=== PATIENT | male | born 1955 | race Hispanic/Latino ===

== ENCOUNTER 2017-10-29 07:10 | Day surgery (SDC) | payer BC, OTHER ==
--- NOTE | 2017-10-28 14:11 | RAD REPORT ---
EXAM DESCRIPTION: RAD - Chest Pa And Lat (2 Views) - 10/28/2017 1:58 pm CLINICAL HISTORY: Preop chest, pending cardiac catheterization, shortness of breath COMPARISON: June 2013 TECHNIQUE: PA and lateral views of the chest were obtained. FINDINGS: The lungs are normal volume. No peripheral mass, consolidation or acute failure finding. L cecy markings are slightly more pronounced in the left base. This is a stable pattern. Trachea is midl ine. Heart size is normal and central vasculature is within normal limits. No pleural effusion or pneumothorax seen. No acute bony finding noted. No aortic abnormality. IMPRESSION: No acute cardiopulmonary process. Above detailed chest findings are similar to comparis on.
[2017-10-28 14:24] LABS: Potassium 4.1 mmol/L (3.5-5.1)
[2017-10-28 14:33] LABS: Absolute Lymphocytes (CBC) 2.9 K/uL (0.7-4.9); Absolute Monocytes 0.6 K/uL (0.1-1.3); Absolute Neutrophil 4.7 K/uL (1.8-8.0); Eosinophils % 3.5 % (0-4.4); Lymphocytes % 33.7 % (15.3-44.8); MCH 28.4 pg (27.0-35.0); MCV 84.8 fL (80-100); MPV 10.2 fL (7.6-11.3); Monocytes % 6.9 % (3.3-12.3); RBC Red Blood Cell Count 4.83 M/uL (4.33-5.43)
[2017-10-28 14:36] LABS: Protime INR 0.98
--- OUTSIDE RECORDS SUMMARY | 2017-10-29 07:13 | XMS REPORT | Continuity of Care Document ---
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 Low back Active 07/08/19 Problem 07/03/2015 Data OPID pain<sup>2</sup> 15 migrated Juma from GE OPID [facility] [place] on 10/26/14. Lumbar Active 07/08/19 Problem 07/03/2015 Data OPID radiculopathy<sup 15 migrated [facility] >3</sup> from GE OP[facility] [place] on 10/26/14. Spinal stenosis Active 07/08/19 Problem 07/03/2015 Data OPID of lumbar 15 migrated [facility] region<sup>4</sup from GE OPID > [facility] [place] on 10/26/14. Unsteady Active 07/08/19 Problem 07/03/2015 Data OPID gait<sup>5</sup> 15 migrated Juma from GE OPID [facility] [place] on 10/26/14. LOW BACK PAIN Active 07/08/19 Condition 11/03/2014 [facility] 15 Neuro LUMBAR Active 07/08/19 Condition 11/03/2014 [facility] RADICULOPATHY 15 Neuro LUMBAR HNP Active 07/08/19 Condition 11/03/2014 [facility] 15 Neuro LUMBAR SPINAL Active 07/08/19 Condition 11/03/2014 [facility] STENOSIS 15 Neuro DEGENERATIVE DISC Active 07/08/19 Condition 11/03/2014 [facility] DISEASE, LUMBAR 15 Neuro SPINE UNSTEADY GAIT Active 07/08/19 Condition 11/03/2014 [facility] 15 Neuro Arthritis Resolved Problem 07/03/2015 GIANFRANCO Dennison, JULIANNAMary [place] DDD (<span Active Problem 07/03/2015 OPID ID="[id number]"> Juma Confirmed</span>) OP[facility] [place] DM (<span Active Problem 07/03/2015 OPID ID="[id number]"> [facility] Confirmed</span>) [facility] [place] HTN (<span Active Problem 07/03/2015 OPID ID="[id number]"> Juma Confirmed</span>) OPIMary [facility] Hypothyroidism Active Problem 07/03/2015 GIANFRANCO Dennison, GIANFRANCO [place] Obesity Active Problem 07/03/2015 GIANFRANCO Dennison, GIANFRANCO Grecom[place] Final: 07/29/2014 [facility] LUMB/LUMBOSAC Active [facility] DISC [facility] SPIN STEN,LUMBR Active [facility] LUMBAR DISC Active [facility] Medications Medication Details Route Status Patient Ordering Order Source Instructions Provider Date HYDROCODONE-ACETA 1 [facility] q h [facility]n [facility]325 [facility] 2015 Neuro MG TABS CYCLOBENZAPRINE 1 tab po every [facility] 08[facility]27[facility] HCL 10 MG TABS 8hrs 2015 Neuro CYCLOBENZAPRINE 1 tab po every Active 08/27/ [facility] HCL 10 MG TABS 8hrs 2015 Neuro Sodium Chloride 1,000 mL, 1,000 Inactive 07/24[facility] [place] 0.154 MEQ/ML ml/hr, Infuse 2015 Medical Injectable Over: 1 hr, [place] Solution Route: IV, ONCE, Priority: STAT, Dosing Weight 122.727 kg, Start date: 07/24/14 15:58:00, Duration: 1 doses or times, Stop date: 07/24/14 15:58:00 Cyclobenzaprine 10 mg=1 tab, Inactive 07/24[facility] [place] hydrochloride 10 PO, BID, PRN 2015 Medical MG Oral Tablet for spasm, # 30 Center [Flexeril] tab, 0 Refill(s) ondansetron 4 mg 4 mg=1 tab, PO, Inactive [place] oral tablet TID, # 30 tab, 2014 Medical 0 Refill(s) Center Acetaminophen 325 1-2 tab, PO, Inactive [facility] MG / Hydrocodone Q4-6H, PRN 2014 Medical Bitartrate 10 MG Pain, # 90 tab, Center Oral Tablet 0 Refill(s) [[place] 10/325] senna 15 mg oral 15 mg=1 tab, Inactive [facility] tablet PO, Daily, PRN 2014 Medical for Center constipation, # 30 tab, 0 Refill(s) Miralax 17 gm, 1 pkt, Inactive [facility] Route: PO, Drug 2014 Medical form: PWDR, [place] ONCE, Dosing Weight 122.727, kg, Start date: 07/23/14 18:00:00, Duration: 1 doses or times, Stop date: 07/23/14 18:00:00Notes: Dissolve in 8 oz of water or juice. (Same as: Miralax) Lisinopril 10 mg, 1 tab, No Longer [facility] Route: PO, Drug Active 2014 Medical form: TAB, Center Daily, Dosing Weight 122.727, kg, Start date: 07/23/14 9:00:00, Duration: 30 day, Stop date: 08/21/14 9:00:00Notes: (Same as: Prinivil, Zestril) Thyroxine 175 microgram, No Longer [facility] Route: PO, Drug Active 2014 Medical form: TAB, Center Daily, Dosing Weight 122.727, kg, Start date: 07/23/14 9:00:00, Duration: 30 day, Stop date: 08/21/14 9:00:00 pneumococcal 0.5 mL, Route: Inactive [facility] capsular IM, Drug Form: 2014 Medical polysaccharide INJ, Daily, Center type 1 vaccine / Start date: pneumococcal 07/23/14 capsular 9:00:00, polysaccharide Duration: 1 type 10A vaccine doses or times, / pneumococcal Stop date: capsular 07/23/14 polysaccharide 9:00:00Notes: type 11A vaccine (Same as: / pneumococcal Pneumovax 23) capsular Refrigerate polysaccharide type 12F vaccine / pneumococcal capsular polysacchar Levothroid 100 microgram, No Longer [facility] 1 tab, Route: Active 2014 Medical PO, Drug form: Center TAB, Q630AM, Start date: 07/23/14 6:30:00, Duration: 30 day, Stop date: 08/21/14 6:30:00Notes: Take 1 hour before or 2 hours after meal; Enteral feeds may interefere with the absorption of this medication. (Same as:Levothroid, Synthroid) Synthroid 75 microgram, 1 No Longer [facility] tab, Route: PO, Active 2014 Medical Drug form: TAB, [place] Q630AM, Start date: 07/23/14 6:30:00, Duration: 30 day, Stop date: 08/21/14 6:30:00Notes: Take 1 hour before or 2 hours after meal; Enteral feeds may interefere with the absorption of this medication. (Same as:Synthroid, Levothroid) sennosides, [place] 8.6 mg, 1 tab, No Longer [facility] Route: PO, Drug Active 2014 Medical Form: TAB, Center Dosing Weight 122.727, kg, Q12H, Start date: 07/22/14 21:00:00, Duration: 30 day, Stop date: 08/21/14 9:00:00Notes: (Same as: Senokot) Docusate 100 mg, 1 cap, No Longer [facility] Route: PO, Drug Active 2014 Medical form: CAP, Center Q12H, Dosing Weight 122.727, kg, Start date: 07/22/14 21:00:00, Duration: 30 day, Stop date: 08/21/14 9:00:00Notes: (Same as: Colace) (Do Not Crush) Famotidine 20 mg, 2 mL, No Longer [facility] Route: IVP, Active 2014 Medical Drug form: INJ, Center Q12H, Dosing Weight 122.727, kg, Start date: 07/22/14 21:00:00, Duration: 30 day, Stop date: 08/21/14 9:00:00Notes: (Same as: Pepcid) Can be dilute in 5-10cc NS IVP: Slow IV push over at least 2 minutes. ceFAZolin 1 gm, Route: No Longer [place] IV, Drug form: Active 2014 Medical PDR/INJ, Center [id number], Start date: 07/22/14 21:00:00, Duration: 24 hr, Stop date: 07/23/14 13:00:00Notes: (Same As: Joyce Alcantar) MEDICATION WASTE Product Size: 1000 mg Product Wasted: ___ mg Lipitor 10 mg, 1 tab, No Longer [place] Route: PO, Drug Active 2014 Medical form: TAB, Center Bedtime, Start date: 07/22/14 21:00:00, Duration: 30 day, Stop date: 08/20/14 21:00:00Notes: (Same As: Lipitor) Lovastatin 20 mg, Route: Inactive [place] PO, Drug form: 2014 Medical TAB, Bedtime, Center Dosing Weight 122.727, kg, Start date: 07/22/14 21:00:00, Duration: 30 day, Stop date: 08/20/14 21:00:00 Saline Flush 0.9% 10 ml, Route: No Longer [place] IVP, Drug Form: Active 2014 Medical INJ, Dosing Center Weight 122.727, kg, Q12H, Start date: 07/22/14 21:00:00, Duration: 30 day, Stop date: 08/21/14 9:00:00Notes: (Same as: BD Posiflush) Metformin 500 mg, 1 tab, No Longer [place] hydrochloride 500 Route: PO, Drug Active 2014 Medical MG Oral Tablet form: TAB, BID, Center Dosing Weight 122.727, kg, Start date: 07/22/14 17:00:00, Duration: 30 day, Stop date: 08/21/14 9:00:00Notes: (Same as: Glucophage) Take with meal bupivacaine 20 mL, Route: Inactive [facility] liposome InFILtration(lo 2014 Medical ray), Drug Center Form: INJ, ONCE, Start date: 07/22/14 13:29:00, Stop date: 07/22/14 13:29:00Notes: (Same as: Exparel) NOT FOR IV use Postoperative analgesia: Infiltration (local): Dose is based on surgical site and volume required to cover the area (in general, the maximum total dose is 266 mg). Bunionectomy: 7 mL into the tissues surrounding the osteotomy and 1 mL into the subcutaneous tissue of the surgical site (total dose=8 mL [106 mg]) Hemorrhoidectom y: 30 mL (20 mL vial diluted with 10 mL NS) divided and administered as 6 injections of 5 mL each (total dose=30 mL [266 mg]) Cefazolin 1 gm, Route: Inactive [facility] IVPB, ABXQ8H, 2014 Medical Dosing Weight Center 122.727, kg, For Morphine 30 mg, 30 mL, No Longer [place] Route: IV, Active 2014 Medical Initial Loading Center Dose: 2 mg, CHEMIST STEROIDS Dose: 1 mg, CHEMIST STEROIDS Lockout: 10 minutes, Continuous Basal Rate: 0 mg, 4 Hour Limit (In MG): 30, Drug Form: INJ, Continuous, Start date: 07/22/14 12:30:00, Duration: 30 day, Stop date: 08/21/14 12:2...Notes: Dose: Delay: Basal rate: 4hr limit: (Same as:Kimo) Valium 5 mg, 1 tab, No Longer [place] Route: PO, Drug Active 2014 Medical form: TAB, TID, Center Dosing Weight 122.727, kg, PRN Spasm, Start date: 07/22/14 12:05:00, Duration: 30 day, Stop date: 08/21/14 12:04:00Notes: (Same as: Valium) Naloxone 0.04 mg, 0.1 No Longer [facility] mL, Route: IVP, Active 2014 Medical Drug form: INJ, Center Q2MIN, Dosing Weight 122.727, kg, PRN Narcotic Reversal, Start date: 07/22/14 12:04:00, Duration: 30 day, Stop date: 08/21/14 12:03:00Notes: Same as Narcan Acetaminophen 325 1 tab, Route: No Longer [facility] MG / Hydrocodone PO, Drug Form: Active 2014 Medical Bitartrate 10 MG TAB, Dosing Center Oral Tablet Weight 122.727, kg, Q4H, PRN Pain Score 4-6, Start date: 07/22/14 12:02:00, Duration: 30 day, Stop date: 08/21/14 12:01:00Notes: Do not exceed 4gm/day of acetaminophen. (Same as: [place] 325/10) Ondansetron 4 mg, 2 mL, No Longer [place] Route: IVP, Active 2014 Medical Drug form: INJ, Center Q8H, Dosing Weight 122.727, kg, PRN Nausea & Vomiting, Start date: 07/22/14 12:02:00, Duration: 30 day, Stop date: 08/21/14 12:01:00Notes: (Same as: Rohit) MEDICATION WASTE Product Size: 4 mg Product Wasted: __0_ mg Sodium Chloride 1,000 mL, Rate: No Longer [place] 0.154 MEQ/ML 50 ml/hr, Active 2014 Medical Injectable Infuse over: 20 Center Solution hr, Route: IV, Dosing Weight 122.727 kg, Total Volume: 1,000, Start date: 07/22/14 12:02:00, Stop date: 08/21/14 12:01:00 Saline Flush 0.9% 10 ml, Route: No Longer [place] IVP, Drug Form: Active 2014 Medical INJ, Dosing Center Weight 122.727, kg, PRN, PRN Line Flush, Start date: 07/22/14 12:02:00, Duration: 30 day, Stop date: 08/21/14 12:01:00Notes: (Same as: BD Posiflush) Clonazepam PO, TID, 0 Active [place] Refill(s) 2014 Medical Center Diclofenac PO, 0 Refill(s) Active [facility] 2014 Medical Center meclizine 12.5 mg 12.5 mg=1 tab, Active [facility] oral tablet PO, TID, PRN 2014 Medical Dizziness, # 30 Center tab, 0 Refill(s) sildenafil 100 MG 100 mg=1 tab, Active [facility] Oral Tablet PO, Daily, PRN 2014 Medical [Viagra] for erectile Center dysfunction, 0 Refill(s) Phentermine 37.5 mg=1 cap, Active [place] Hydrochloride PO, Daily, 0 2014 Medical 37.5 MG Oral Refill(s) Center Capsule Trazodone 100 mg=1 tab, Active [place] Hydrochloride 100 PO, TID, # 270 2015 Medical MG Oral Tablet tab, 0 Center Refill(s) clonazePAM 0.5 mg 0.5 mg=1 tab, Active [place] oral tablet, PO, TID, 0 2014 Medical disintegrating Refill(s) Center levothyroxine 175 175 microgram=1 Active [place] mcg (0.175 mg) tab, PO, Daily, 2015 Medical oral tablet # 90 tab, 0 Center Refill(s) lovastatin 20 mg 20 mg=1 tab, Active [place] oral tablet PO, Bedtime, # 2015 Medical 90 tab, 0 Center Refill(s) diclofenac sodium 75 mg=1 tab, Active [place] 75 mg oral PO, Q12H, # 60 2015 Medical enteric coated, tab, 0 Center delayed-release Refill(s) tablet Metformin 500 mg=1 tab, Active [place] hydrochloride 500 PO, BID, # 30 2015 Medical MG Oral Tablet tab, 0 Center Refill(s) Plus Low 1 tab, PO, Active [facility] [place] oral tablet Daily, 0 2014 Medical Refill(s) Center lisinopril 10 mg 10 mg=1 tab, Active [place] oral tablet PO, Daily, # 90 2015 Medical tab, 0 Center Refill(s) LISINOPRIL 10 MG Active TABS 2014 Neuro PRAVASTATIN Active SODIUM 40 MG TABS 2015 Neuro BP MULTINATAL Active PLUS TABS 2015 Neuro SYNTHROID 75 MCG Active TABS 2015 Neuro GLIPIZIDE-METFORM Active IN HCL 5-500 MG 2015 Neuro TABS DICLOFENAC SODIUM Active 75 MG TBEC 2015 Neuro LOVASTATIN 20 MG Active TABS 2015 Neuro CLONAZEPAM 0.5 MG Active TABS 2015 Neuro TRAZODONE HCL 100 Active MG TABS 2015 Neuro PHENTERMINE HCL Active 37.5 MG TABS 2015 Neuro LEVOTHYROXINE Active 07/07/ [facility] SODIUM 175 MCG 2015 Neuro TABS LISINOPRIL 10 MG Active 07/07/ [facility] TABS 2015 Neuro SYNTHROID 75 MCG Active [facility] TABS 2015 Neuro DICLOFENAC SODIUM Active 07/07/ [facility] 75 MG TBEC 2015 Neuro TRAZODONE HCL 100 Active 07/07/ [facility] MG TABS 2015 Neuro PHENTERMINE HCL Active 07/07/ [facility] 37.5 MG TABS 2015 Neuro LEVOTHYROXINE Active 07/07/ [facility] SODIUM 175 MCG 2015 Neuro TABS LISINOPRIL 10 MG Active 07/07/ [facility] TABS 2015 Neuro TRAZODONE HCL 100 Active 07/07/ [facility] MG TABS 2015 Neuro PHENTERMINE HCL Active 07/07/ [facility] 37.5 MG TABS 2015 Neuro Allergies, Adverse Reactions, Alerts Substance Category Reaction Severity Reaction Status Date Comments Source type Reported NKDA Assertion Drug Active OP[facility] allergy [place] Immunizations Immunization Date Site Status Last Comments Source Given Updated pneumococcal Left completed [employer] OPID 23-valent vaccine 5 Deltoid [place], OP[facility] [place] Results Order Name Results Value Reference Date Interpretation Comments Source Range Spine Spine lumbar EXAM: MRI LUMBAR SPINE WITHOUT CONTRAST 06/29 - OP[facility] lumbar wo wo contrast /2015 - [place] contrast MRI MRI DATE: 06/30/2015 Read by: Jeanne Arizmendi MD Dictated Date/time: 06/30/15 14:53 Electronically Signed by: Jeanne Arizmendi MD 06/30/15 15:00 FINAL REPORT INDICATION: M51.26 Other intervertebral disc displacement, lumbar region COMPARISON: None TECHNIQUE: Multiplanar multisequence images of the lumbar spine were obtained without contrast material administration. DISCUSSION: The height and the structure of the lumbar vertebral bodies are well- maintained. No bone marrow signal abnormality. Decreased T2 signal in the intervertebral discs due to degenerative changes. Minimal a nterolisthesis of L4 on L5 and retrolisthesis of L3 on L4. Laminectomy changes at L3-L5. L1-L2: No canal or foraminal stenosis. L2-L3: Concentric narrowing of the thecal sac with crowding of the transiting nerve roots. Encroachment of the left neural foramen by posterior endplate spondylosis and annular bulge. L3-L4: No canal stenosis. Left facet arthropathy. Encroachment of the left neural foramen by posterior endplate spondylosis and annular bulge. L4-L5: No canal stenosis. Advanced bilateral facet arthropathy. Encroachment of both neural foramen by degenerative changes, right greater than left with effacement of the perineural fat. L5-S1: No canal stenosis. Encroachment of the left neural foramen by degenerative changes. IMPRESSION: Mild to moderate spinal canal stenosis at L2-L3 with crowding of the transiting nerve roots. Advanced facet arthropathy most prominent on the left side at L4-L5. Encroachment of some neural foramen by degenerative changes, worse on the left side at L3-L4, bilaterally at L4-L5 and left side at L5-S1. Foot series Foot series EXAM: RIGHT FOOT 3 VIEWS 08/27 [facility] OPID DX DX /2014 [place] DATE: Aug 27, 2014 10:58:00 AM Read by: Luis Pérez MD Dictated Date/time: 08/27/14 12:11 Electronically Signed by: Luis Pérez MD 08/27/14 15:33 FINAL REPORT INDICATION: 719.47 Pain in Joint Involving Ankle and Foot COMPARISON: None available TECHNIQUE: AP, lateral and oblique radiographs of the right foot FINDINGS: No fracture, dislocation or other acute bony abnormality is identified. There is mild joint space narrowing and osteophyte formation of the first MTP joint. There is a nonspecific 7 mm cyst i n the fifth metatarsal neck. Small calcaneal enthesophytes are present. No soft tissue abnormality is identified. IMPRESSION: 1. No acute abnormality identified. 2. 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 3. Nonspecific 7 mm cyst in the fifth metatarsal neck. CHEM PANEL Globulin 3.7 g/dL 2.0 - 4.0 07/26 [facility]2014 [facility] CHEM PANEL A/G Ratio 0.8 0.7 - 1.6 07/[address] CHEM PANEL AGAP 13.9 meq/L 10.0 - 07/26 [facility] 20.0 [facility] CHEM PANEL B/C Ratio 11 6 - 07/[address] CHEM PANEL eGFR 94 07/26 1Result Comment: The eGFR is calculated using the CKD-EPI formula. In most young, healthy individuals the eGFR will be >90 mL/ min/1.73m2. The eGFR declines with age. An eGFR of 60-89 may be normal in mL/min/1.7 some populations, particularly the elderly, for whom the CKD-EPI formula has not been extensively validated. Use of the eGFR is not recommended in the following populations: [address] Individuals with unstable creatinine concentrations, including patients and those with serious co-morbid conditions. Patients with extremes in muscle mass or diet. The data above are obtained from the National Kidney Disease Education Program (NKDEP) which additionally recommends that when the eGFR is used in patients with extremes of body mass index for purposes of drug dosing, the eGFR should be multiplied by the estimated BMI. CHEM PANEL Glucose Lvl 98 mg/dL 70 - 99 07/26 4Interpretive Data: Adult reference range values reflect the clinical guidelines of the [place] [employer]. [facility] CHEM PANEL BUN 10 mg/dL 7 - 22 07/26 [facility] CHEM PANEL ALT 63 unit/L 0 - 65 07/26 [facility] CHEM PANEL AST 31 unit/L 0 - 37 07/26 [facility] CHEM PANEL Albumin Lvl 2.9 g/dL 3.5 - 5.0 07/26 [facility] CHEM PANEL Bili Total 0.4 mg/dL 0.2 - 1.3 07/26 [facility] CHEM PANEL Alk Phos 100 unit/L 39 - 136 07/26 [facility] CHEM PANEL Potassium 3.9 meq/L 3.5 - 5.1 07/26 [facility] CHEM PANEL Sodium Lvl 140 meq/L 135 - 145 07/26 [facility] CHEM PANEL CO2 22 meq/L 24 - 32 07/26 2014 [facility] CHEM PANEL Chloride Lvl 108 meq/L 95 - 109 07/26 [facility] CHEM PANEL Creatinine 0.9 mg/dL 0.5 - 1.4 07/26 [facility] CHEM PANEL Calcium Lvl 9.0 mg/dL 8.5 - 10.5 07/26 2014 [facility] CHEM PANEL Total 6.6 g/dL 6.4 - 8.4 07/26 [facility] HEMATOLOGY Platelet 176 K/CMM 133 - 450 07/26 [facility] HEMATOLOGY Hgb 12.5 g/dL 14.0 - 07/26 18.0 [facility] HEMATOLOGY Hct 38.8 % 42.0 - 07/26 54.0 [facility] HEMATOLOGY RBC 4.41 M/CMM 4.70 - 07/26 6.10 [facility] HEMATOLOGY MCV 88.1 fL 80.0 - 07/26 94.0 [facility] HEMATOLOGY MCH 28.3 pg 27.0 - 07/26 [place] 31.0 [facility] HEMATOLOGY MPV 10.3 fL 7.4 - 10.4 07/26 [facility] HEMATOLOGY RDW 13.7 % 11.5 - 07/26 14.5 [facility] HEMATOLOGY MCHC 32.1 g/dL 32.0 - 07/26 36.0 [facility] HEMATOLOGY WBC 11.4 K/CMM 3.7 - 10.4 07/26 [facility] HEMATOLOGY Segs-Bands # 7.9 K/CMM 1.5 - 8.1 07/26 [facility] HEMATOLOGY Lymphocytes 2.2 K/CMM 1.0 - 5.5 07/26 # [facility] HEMATOLOGY Monocytes 9.9 % 2.0 - 12.0 07/26 [facility] HEMATOLOGY Basophils 0.2 % 0.0 - 1.0 07/26 [facility] HEMATOLOGY Eosinophils 1.2 % 0.0 - 4.0 07/26 [facility] HEMATOLOGY Eosinophils 0.1 K/CMM 0.0 - 0.5 07/26 [facility] HEMATOLOGY Monocytes # 1.1 K/CMM 0.0 - 0.8 07/26 [facility] HEMATOLOGY Lymphocytes 19.5 % 20.0 - 07/26 40.0 [facility] HEMATOLOGY Segs 69.2 % 45.0 - 07/26 75.0 [facility] CHEM PANEL eGFR 94 07/25 2Result Comment: The eGFR is calculated using the CKD-EPI formula. In most young, healthy individuals the eGFR will be >90 mL/ min/1.73m2. The eGFR declines with age. An eGFR of 60-89 may be normal in [facility] mL/min/1.7 some populations, particularly the elderly, for whom the CKD-EPI formula has not been extensively validated. Use of the eGFR is not recommended in the following populations: [address] Individuals with unstable creatinine concentrations, including patients and those with serious co-morbid conditions. Patients with extremes in muscle mass or diet. The data above are obtained from the National Kidney Disease Education Program (NKDEP) which additionally recommends that when the eGFR is used in patients with extremes of body mass index for purposes of drug dosing, the eGFR should be multiplied by the estimated BMI. CHEM PANEL Alk Phos 84 unit/L 39 - 136 07/25 [facility] CHEM PANEL Bili Total 0.5 mg/dL 0.2 - 1.3 07/25 [facility] CHEM PANEL ALT 45 unit/L 0 - 65 07/25 [facility] CHEM PANEL AST 27 unit/L 0 - 37 07/25 [facility] CHEM PANEL Chloride Lvl 107 meq/L 95 - 109 07/25 [facility] CHEM PANEL BUN 15 mg/dL 7 - 22 07/25 [facility] CHEM PANEL Glucose Lvl 113 mg/dL 70 - 99 07/25 5Interpretive Data: Adult reference range values reflect the clinical guidelines of the [place] [employer]. [facility] CHEM PANEL Albumin Lvl 3.1 g/dL 3.5 - 5.0 07/25 [facility] CHEM PANEL CO2 20 meq/L 24 - 32 07/25 [facility] CHEM PANEL Calcium Lvl 8.8 mg/dL 8.5 - 10.5 07/25 [facility] CHEM PANEL Total 7.2 g/dL 6.4 - 8.4 07/25 [facility] CHEM PANEL Creatinine 0.9 mg/dL 0.5 - 1.4 07/25 [facility] CHEM PANEL Sodium Lvl 138 meq/L 135 - 145 07/25 [facility] CHEM PANEL Potassium 4.1 meq/L 3.5 - 5.1 07/25 [facility] CHEM PANEL Globulin 4.1 g/dL 2.0 - 4.0 07/25 [facility] CHEM PANEL A/G Ratio 0.8 0.7 - 1.6 07/25 [facility] CHEM PANEL AGAP 15.1 meq/L 10.0 - 07/25 [place] 20.0 [facility] CHEM PANEL B/C Ratio 17 6 - 25 07/25 [facility] HEMATOLOGY Lymphocytes 2.3 K/CMM 1.0 - 5.5 07/25 # /2014 [facility] HEMATOLOGY Eosinophils 0.1 K/CMM 0.0 - 0.5 07/25 # /2014 [facility] HEMATOLOGY Basophils 0.3 % 0.0 - 1.0 07/25 [facility] HEMATOLOGY Monocytes # 1.2 K/CMM 0.0 - 0.8 07/25 [facility] HEMATOLOGY Segs-Bands # 10.3 K/CMM 1.5 - 8.1 07/25 [facility] HEMATOLOGY Eosinophils 0.8 % 0.0 - 4.0 07/25 [facility] HEMATOLOGY Monocytes 8.9 % 2.0 - 12.0 07/25 [facility] HEMATOLOGY Segs 73.8 % 45.0 - 07/25 [place] 75.0 [facility] HEMATOLOGY Lymphocytes 16.2 % 20.0 - 07/25 [place] 40.0 [facility] HEMATOLOGY Hct 39.7 % 42.0 - 07/25 54.0 [facility] HEMATOLOGY MCV 87.4 fL 80.0 - 07/25 [place] 94.0 [facility] HEMATOLOGY MCHC 32.5 g/dL 32.0 - 07/25 36.0 [facility] HEMATOLOGY MCH 28.5 pg 27.0 - 07/25 [place] 31.0 [facility] HEMATOLOGY RDW 13.5 % 11.5 - 07/25 [place] 14.5 [facility] HEMATOLOGY Platelet 163 K/CMM 133 - 450 07/25 [facility] HEMATOLOGY MPV 10.2 fL 7.4 - 10.4 07/25 [facility] HEMATOLOGY Hgb 12.9 g/dL 14.0 - 07/25 [place] 18.0 [facility] HEMATOLOGY RBC 4.54 M/CMM 4.70 - 07/25 [place] 6.10 [facility] HEMATOLOGY WBC 14.0 K/CMM 3.7 - 10.4 07/25 [facility] HEMATOLOGY RBC 5.17 M/CMM 4.70 - 07/24 [place] 6.10 [facility] HEMATOLOGY Hgb 14.8 g/dL 14.0 - 07/24 18.0 [facility] HEMATOLOGY Platelet 212 K/CMM 133 - 450 07/24 [facility] HEMATOLOGY WBC 20.3 K/CMM 3.7 - 10.4 07/24 [facility] HEMATOLOGY MPV 10.2 fL 7.4 - 10.4 07/24 [facility] HEMATOLOGY MCV 87.7 fL 80.0 - 07/24 94.0 [facility] HEMATOLOGY Hct 45.4 % 42.0 - 07/24 54.0 [facility] HEMATOLOGY MCHC 32.5 g/dL 32.0 - 07/24 36.0 [facility] HEMATOLOGY MCH 28.5 pg 27.0 - 07/24 31.0 [facility] HEMATOLOGY RDW 13.8 % 11.5 - 07/24 14.5 [facility] HEMATOLOGY Monocytes 8.6 % 2.0 - 12.0 07/24 [facility] HEMATOLOGY Eosinophils 0.2 % 0.0 - 4.0 07/24 [facility] HEMATOLOGY Basophils 0.2 % 0.0 - 1.0 07/24 [facility] HEMATOLOGY Segs-Bands # 15.8 K/CMM 1.5 - 8.1 07/24 [facility] HEMATOLOGY Lymphocytes 2.7 K/CMM 1.0 - 5.5 07/24 # /2014 [facility] HEMATOLOGY Monocytes # 1.8 K/CMM 0.0 - 0.8 07/24 [facility] HEMATOLOGY Segs 77.9 % 45.0 - 07/24 75.0 [facility] HEMATOLOGY Lymphocytes 13.1 % 20.0 - 07/24 [place] 40.0 [facility] BLOOD BANK ABO/Rh A POS 07/22 [facility] RESULTS [facility] BLOOD BANK Antibody Negative 07/22 [facility] RESULTS Scrn [facility] (07/22/14 10:05 AM) Center CHEM PANEL eGFR 83 07/20 3Result Comment: The eGFR is calculated using the CKD-EPI formula. In most young, healthy individuals the eGFR will be >90 mL/ min/1.73m2. The eGFR declines with age. An eGFR of 60-89 may be normal in mL/min/1. some populations, particularly the elderly, for whom the CKD-EPI formula has not been extensively validated. Use of the eGFR is not recommended in the following populations: [address] Individuals with unstable creatinine concentrations, including patients and those with serious co-morbid conditions. Patients with extremes in muscle mass or diet. The data above are obtained from the National Kidney Disease Education Program (NKDEP) which additionally recommends that when the eGFR is used in patients with extremes of body mass index for purposes of drug dosing, the eGFR should be multiplied by the estimated BMI. CHEM PANEL Alk Phos 91 unit/L 39 - 136 07/20 [facility] CHEM PANEL Bili Total 0.4 mg/dL 0.2 - 1.3 07/20 [facility] CHEM PANEL Albumin Lvl 4.0 g/dL 3.5 - 5.0 07/20 [facility] CHEM PANEL ALT 58 unit/L 0 - 65 07/20 [facility] CHEM PANEL AST 17 unit/L 0 - 37 07/20 [facility] CHEM PANEL CO2 29 meq/L 24 - 32 07/20 [facility] CHEM PANEL Calcium Lvl 9.2 mg/dL 8.5 - 10.5 07/20 [facility] CHEM PANEL Total 7.3 g/dL 6.4 - 8.4 07/20 [facility] CHEM PANEL Sodium Lvl 143 meq/L 135 - 145 07/20 [facility] CHEM PANEL BUN 19 mg/dL 7 - 22 07/20 [facility] CHEM PANEL Creatinine 1.0 mg/dL 0.5 - 1.4 07/20 [facility] CHEM PANEL Potassium 4.3 meq/L 3.5 - 5.1 07/20 [facility] CHEM PANEL Chloride Lvl 106 meq/L 95 - 109 07/20 [facility]2014 [facility] CHEM PANEL Glucose Lvl 87 mg/dL 70 - 99 07/20 6Interpretive Data: Adult reference range values reflect the clinical guidelines of the [place] [employer]. [facility] CHEM PANEL A/G Ratio 1.2 0.7 - 1.6 07/20 [facility] CHEM PANEL AGAP 12.3 meq/L 10.0 - 07/20 [facility] 20.0 /2014 [facility] CHEM PANEL B/C Ratio 19 6 - 25 07/20 [facility] CHEM PANEL Globulin 3.3 g/dL 2.0 - 4.0 07/20 [facility] HEMATOLOGY Eosinophils 0.1 K/CMM 0.0 - 0.5 07/20 [facility] # /2014 [facility] HEMATOLOGY INR 1.00 0.85 - 07/20 7Interpretive Data: RECOMMENDED RANGES FOR PROTIME INR: [facility] 1.17 2.0-3.0 for most medical and surgical thromboembolic states. [facility] 2.5-3.5 for artificial heart valves and recurrent embolism. Center INR SHOULD BE USED ONLY FOR PATIENTS ON STABLE ANTICOAGULANT THERAPY. HEMATOLOGY PT 13.2 s 12.0 - 07/20 [facility] 14.7 /2014 [facility] HEMATOLOGY PTT 33.7 s 22.9 - 07/20 8Interpretive [facility] 35.8 Data: Heparin [facility] Range: 57 - 92 Seconds URINE AND UA Mucus Few /LPF None Seen 07/20 [place] STOOL /LPF /2014 [facility] URINE AND UA WBC null 0 - 5 07/20 [facility] URINE AND UA Nitrite Negative Negative 07/20 [facility] (07/20/14 12:03 PM) [place] URINE AND UA 0.2 EU/dL 0.1 - 1.0 07/20 [facility] Urobilinogen /2014 [facility] URINE AND UA pH 5.5 5.0 - 8.0 07/20 [facility] URINE AND UA Leuk Est Negative Negative 07/20 [facility] (07/20/14 12:03 PM) [place] URINE AND UA Glucose Negative Negative 07/20 [facility] mg/dL mg/dL /2014 [facility] URINE AND UA Protein Negative Negative 07/20 [facility] mg/dL mg/dL /2014 [facility] URINE AND UA Bili Negative Negative 07/20 [facility] *NA* [place] (07/20/14 12:03 PM) URINE AND UA Blood Negative Negative 07/20 [facility] (07/20/14 12:03 PM) [place] URINE AND UA Ketones Negative Negative 07/20 [facility] STOOL mg/dL mg/dL /2014 [facility] URINE AND UA Color Yellow Yellow 07/20 [facility] Medical *NA* [place] (07/20/14 12:03 PM) URINE AND UA Turbidity Clear Clear 07/20 [facility] /2014 [facility] (07/20/14 12:03 PM) [place] URINE AND UA Spec Grav 1.020 <=1.030 07/20 [facility] /[address] [place] [address] URINE AND UA Sq Epi None Seen Few 07/20 [facility] /2014 [facility] (07/20/14 12:03 PM) [place] Vital Signs Vital Sign Value Date Comments Source Weight 250.0 11/03/2014 [facility] Height 73 11/03/2014 [facility] Temperature Oral (F) 98.0 F 11/03/2014 [facility] Heart Rate 90 11/03/2014 [facility] Systolic (mm Hg) 148 11/03/2014 [facility] Diastolic (mm Hg) 86 11/03/2014 [facility] Weight 273 08/27/2014 [facility] Height 73 08/27/2014 [facility] Temperature Oral (F) 97.3 F 08/27/2014 [facility] Heart Rate 97 08/27/2014 [facility] Systolic (mm Hg) 163 08/27/2014 [facility] Diastolic (mm Hg) 94 08/27/2014 [facility] Weight 284 08/06/2014 [facility] Temperature Oral (F) 98.3 F 08/06/2014 [facility] Respitory Rate 18 08/06/2014 [facility] Heart Rate 104 08/06/2014 [facility] Height 72 08/06/2014 [facility] Systolic (mm Hg) 139 08/06/2014 [facility] Diastolic (mm Hg) 82 08/06/2014 [facility] Systolic (mm Hg) 123 07/26/2014 [facility] Center Diastolic (mm Hg) 77 07/26/2014 [facility] Heart Rate 86 07/26/2014 [facility] Respitory Rate 18 07/26/2014 [facility] Temperature Oral (F) 98.4 F 07/26/2014 [facility] Heart Rate 79 07/26/2014 [facility] Temperature Oral (F) 98.4 F 07/26/2014 [facility] Respitory Rate 18 07/26/2014 [facility] Systolic (mm Hg) 132 07/26/2014 [facility] Diastolic (mm Hg) 74 07/26/2014 [facility] Temperature Oral (F) 97.6 F 07/26/2014 [facility] Heart Rate 81 07/26/2014 [facility] Systolic (mm Hg) 137 07/26/2014 [facility] Diastolic (mm Hg) 80 07/26/2014 [facility] Respitory Rate 20 07/26/2014 [facility] Weight 122.727 07/22/2014 [facility] BMI Calculated 35.7 07/22/2014 [facility] Height 185.42 cm 07/22/2014 [facility] Weight 270.0 07/07/2014 [facility] Height 72 07/07/2014 [facility] Temperature Oral (F) 98.6 F 07/07/2014 [facility] Heart Rate 100 07/07/2014 [facility] Systolic (mm Hg) 161 07/07/2014 [facility] Diastolic (mm Hg) 93 07/07/2014 [facility] Respitory Rate 18 07/07/2014 [facility] Encounters Location Location Encounter Encounter Reason Attending ADM DC Status Source Details Type Number For Provider Date Date Visit [facility] [id number] Mark Anthony 07/07 07/07 [facility] 3790 Dick CASTELAN [facility] [id number] Mark Anthony 07/22 07/26 [facility] [place] [facility] [id number] Mark Anthony 08/06 08/06 [facility] 9830 Dick CASTELAN /2014 [facility] [id number] Mark Anthony 08/27 08/27 [facility] 2120 Dick CASTELAN /2014 [facility] Outpt Diag [id number] Mark Anthony 08/27 08/28 [facility] [place] [facility] [id number] Mark Anthony 11/03 11/03 [facility] 1260 Dick CASTELAN /2014 [facility] Out[facility] [id number] JAMIE 06/[address] [facility] /2015 [facility] Outpt Diag [id number] Jamie 06/08 06/09 [facility] /2015 [facility] Outpt Diag [id number] Jamie 06/29 06/30 [facility] /2015 [facility] Outpatient [id number] JAMIE 07/[address] [facility] [place] [facility] [id number] MARCIA 05/09 [facility] Procedures Procedure Code Date Perfomer Comments Source Colonoscopy [id number] [facility] Oral operation [id number] [facility] Colonoscopy [id number] [facility] Oral operation [id number] [facility] Colonoscopy [id number] [facility] Oral operation [id number] [facility]
--- OUTSIDE RECORDS SUMMARY | 2017-10-29 07:14 | XMS REPORT | Continuity of Care Document ---
:1955 Author Organization [facility] Care Team Providers Name Role Phone Mark Anthony Jennings MD Unavailable Insurance Providers Payer name Policy type / Policy ID Covered republican ID Policy Macias Coverage type [facility] Encounters Encounter Performer Location Date Office Visit Mark Anthony Jennings MD [facility] Aug 06, 2014 Problems Problem Effective Dates Problem Status LOW BACK PAIN July 07, 2014 Active LUMBAR RADICULOPATHY July 07, 2014 Active LUMBAR HNP July 07, 2014 Active LUMBAR SPINAL STENOSIS July 07, 2014 Active DEGENERATIVE DISC DISEASE, 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, 2014 Active UNSTEADY GAIT July 07, 2014 Active Procedures Date Description Comments Jun 17, 2014 smoking status never smoker July 07, 2014 smoking status Never smoker Aug 06, 2014 smoking status Never smoker Medications Medication Instructions Start Date Status LISINOPRIL 10 MG TABS July 07, 2014 Active PRAVASTATIN SODIUM 40 MG TABS July 07, 2014 Active BP MULTINATAL PLUS TABS July 07, 2014 Active SYNTHROID 75 MCG TABS July 07, 2014 Active GLIPIZIDE-METFORMIN HCL 5-500 MG TABS July 07, 2014 Active DICLOFENAC SODIUM 75 MG TBEC July 07, 2014 Active LOVASTATIN 20 MG TABS July 07, 2014 Active CLONAZEPAM 0.5 MG TABS July 07, 2014 Active TRAZODONE HCL 100 MG TABS July 07, 2014 Active PHENTERMINE HCL 37.5 MG TABS July 07, 2014 Active LEVOTHYROXINE SODIUM 175 MCG TABS July 07, 2014 Active Vital Signs Date Description Test Result July 07, 2014 weight E&M - 3141-9 WEIGHT 270.0 lb July 07, 2014 height E&M - 8302-2 HEIGHT 72 in July 07, 2014 temperature E&M TEMPERATURE 98.6 deg f July 07, 2014 pulse rate E&M - 8867-4 PULSE RATE 100 /min July 07, 2014 blood pressure, systolic - 8480-6 BP SYSTOLIC 161 mm Hg July 07, 2014 blood pressure, diastolic - 8462-4 BP DIASTOLIC 93 mm Hg July 07, 2014 respiratory rate E&M - 9279-1 RESP RATE 18 /min Aug 06, 2014 weight E&M - 3141-9 WEIGHT 284 lb Aug 06, 2014 temperature E&M TEMPERATURE 98.3 deg f Aug 06, 2014 respiratory rate E&M - 9279-1 RESP RATE 18 /min Aug 06, 2014 pulse rate E&M - 8867-4 PULSE RATE 104 /min Aug 06, 2014 height E&M - 8302-2 HEIGHT 72 in Aug 06, 2014 blood pressure, systolic - 8480-6 BP SYSTOLIC 139 mm Hg Aug 06, 2014 blood pressure, diastolic - 8462-4 BP DIASTOLIC 82 mm Hg
--- OUTSIDE RECORDS SUMMARY | 2017-10-29 07:14 | XMS REPORT | Continuity of Care Document ---
:1955 Author Organization [facility] Care Team Providers Name Role Phone Mark Anthony Jennings MD Unavailable Insurance Providers Payer name Policy type / Policy ID Covered republican ID Policy Macias Coverage type [facility] Encounters Encounter Performer Location Date Office Visit Mark Anthony Jennings MD [facility] Aug 27, 2014 Problems Problem Effective Dates Problem Status LOW BACK PAIN July 07, 2014 Active LUMBAR RADICULOPATHY July 07, 2014 Active LUMBAR HNP July 07, 2014 Active LUMBAR SPINAL STENOSIS July 07, 2014 Active DEGENERATIVE DISC DISEASE, 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, 2014 Active UNSTEADY GAIT July 07, 2014 Active PAIN IN JOINT INVOLVING ANKLE AND FOOT Aug 27, 2014 Active Procedures Date Description Comments Jun 17, 2014 smoking status never smoker July 07, 2014 smoking status Never smoker Aug 06, 2014 smoking status Never smoker Aug 27, 2014 smoking status Never smoker Medications Medication [...] 175 MCG TABS July 07, 2014 Active CYCLOBENZAPRINE HCL 10 MG TABS 1 tab po every 8hrs Aug 27, 2014 Active Vital Signs Date Description Test [...] - 8462-4 BP DIASTOLIC 82 mm Hg Aug 27, 2014 weight E&M - 3141-9 WEIGHT 273 lb Aug 27, 2014 height E&M - 8302-2 HEIGHT 73 in Aug 27, 2014 temperature E&M TEMPERATURE 97.3 deg f Aug 27, 2014 pulse rate E&M - 8867-4 PULSE RATE 97 /min Aug 27, 2014 blood pressure, systolic - 8480-6 BP SYSTOLIC 163 mm Hg Aug 27, 2014 blood pressure, diastolic - 8462-4 BP DIASTOLIC 94 mm Hg
--- OUTSIDE RECORDS SUMMARY | 2017-10-29 07:14 | XMS REPORT | Summary of Care ---
:1955 Author Organization [facility] [place] Address [address] [place] [phone]- Encounter HQ Heatherntr_shirley(FIN) [id number] Date(s): 06/09/15 - 06/09/15 [facility] [place] [address] [place] [address]- [phone] Discharge Disposition: Home Attending Physician: Jamie Rushing MD Vital Signs No data available for this section Problem List Condition Effective Dates Status Health Status Informant Arthritis(Confirmed) Resolved DDD (degenerative disc Active disease)(Confirmed) Degeneration of lumbar 07/07/14 Active intervertebral disc1 DM (diabetes mellitus)(Confirmed) Active HTN (hypertension)(Confirmed) Active Hypothyroidism(Confirmed) Active Low back pain2 07/07/14 Active Lumbar radiculopathy3 07/07/14 Active Obesity(Confirmed) Active Spinal stenosis of lumbar region4 07/07/14 Active Unsteady gait5 07/07/14 Active 1Data migrated from [employer] on 10/26/14.2Data migrated from [employer] on 10/26/14.3Data migrated from [employer] on 10/26/14.4Data migrated from [employer] on 10/26/14.5Data migrated from [employer] on 10/26/14. Allergies, Adverse Reactions, Alerts Substance Reaction Severity Status NKDA Active Medications No data available for this section Results No data available for this section Immunizations Vaccine Date Refusal Reason pneumococcal 23-valent vaccine 07/24/14 Procedures Procedure Date Related Diagnosis Body Site Colonoscopy Oral operation Social History Social History Type Response Smoking Status Never smoker; Type: Cigarettes; Exposure to Tobacco Smoke None; Cigarette Smoking Last 365 Days No; Reg Smoking Cessation Counseling No Assessment and Plan No data available for this section
--- OUTSIDE RECORDS SUMMARY | 2017-10-29 07:14 | XMS REPORT | Continuity of Care Document ---
:1955 Author Organization [facility] Care Team Providers Name Role Phone Dick CASTELAN, Mark Anthony Chavis Unavailable Insurance Providers Payer name Policy type / Policy ID Covered libertarian ID Policy Macias Coverage type [facility] Encounters Encounter Performer Location Date Office Visit Mark Anthony Jennings MD [facility] [place] 07, 2014 Problems Problem Effective Dates Problem Status [...] July 07, 2014 smoking status Never smoker Medications Medication [...]
--- OUTSIDE RECORDS SUMMARY | 2017-10-29 07:14 | XMS REPORT | Summary of Care ---
:[address] [facility] Outpatient Imaging - [facility] Address [address] [place] [address]- Encounter HQ Encntr_alibriseyda(FIN) [id number] Date(s): 06/30/15 - 06/30/[address] [facility] Outpatient Imaging - [address] [place] [address]- Discharge Disposition: Home Attending Physician: Jamie Rushing [...]
--- OUTSIDE RECORDS SUMMARY | 2017-10-29 07:14 | XMS REPORT | Summary of Care ---
:1955 Author Encounter HQ Lars(JALEN) [id number] Date(s): 07/22/14 - 07/26/[address] Professional Services provided by [facility] [place] [address]- Final: Discharge Disposition: Home Physician Attending: Mark Anthony Jennings MD Physician Admitting: Mark Anthony Jennings MD Physician_Referring: Mark Anthony Jennings MD Vital Signs Most recent to oldest 1 2 3 [Reference Range]: Height 185.42 cm (07/22/14 9:50 AM) Temperature Oral [96.4-99.1 98.4 DegF 98.4 DegF 97.6 DegF DegF] (07/26/14 11:21 AM) (07/26/14 7:14 AM) (07/26/14 5:12 AM) Blood Pressure [90-140/60-90 123/77 mmHg 132/74 mmHg 137/80 mmHg mmHg] (07/26/14 11:21 AM) (07/26/14 5:12 AM) (07/26/14 12:18 AM) Respiratory Rate [14-20 18 BRMIN 18 BRMIN 20 BRMIN BRMIN] (07/26/14 11:21 AM) (07/26/14 7:14 AM) (07/25/14 8:28 PM) Peripheral Pulse Rate [60-100 86 bpm 79 bpm 81 bpm bpm] (07/26/14 11:21 AM) (07/26/14 7:14 AM) (07/26/14 5:12 AM) Weight 122.727 kg (07/22/14 9:50 AM) Body Mass Index 35.7 m2 (07/22/14 9:50 AM) Problem List Condition Effective Dates Status Health Status Informant Arthritis(Confirmed) Resolved DDD (degenerative disc Active disease)(Confirmed) DM (diabetes mellitus)(Confirmed) Active HTN (hypertension)(Confirmed) Active Hypothyroidism(Confirmed) Active Obesity(Confirmed) Active Allergies, Adverse Reactions, Alerts Substance Reaction Severity Status NKDA Active Medications acetaminophen-hydrocodone 325 mg-10 mg oral tablet 1 tab, Route: PO, Drug Form: TAB, Dosing Weight 122.727, kg, Q4H, PRN Pain Score 4-6, Start date: 07/22/14 12:02:00, Duration: 30 day, Stop date: 08/21/14 12:01:00 Notes: Do not exceed 4gm/day of acetaminophen. (Same as: [place] 325/10) Start Date: 07/22/14 Stop Date: 07/26/14 Status: Discontinuedbupivacaine liposome 20 mL, Route: InFILtration(local), Drug Form: INJ, ONCE, Start date: 07/22/14 13 :29:00, Stop date: 07/22/14 13:29:00 Notes: (Same as: Анна) NOT FOR IV use Postoperative analgesia: Infiltration (local): Dose is based on surgical site and volume required to cover the area (in general, the maximum total dose is 266 mg).Bunionectomy: 7 mL into the tissues surrounding the osteotomy and 1 mL into the subcutaneous tissue of the surgical site (total dose=8 mL [106 mg])Hemorrhoidectomy: 30 mL ( 20 mL vial diluted with 10 mL NS) divided and administered as 6 injections of 5 mL each (total dose=30 mL [266 mg]) Start Date: 07/22/14 Stop Date: 07/22/14 Status: CompletedceFAZolin 1 gm, Route: IVPB, ABXQ8H, Dosing Weight 122.727, kg, For < 70 kg, Start date : 07/22/14 13:00:00,Duration: 30 day, Stop date: 08/21/14 5:00:00 Start Date: 07/22/14 Stop Date: 07/22/14 Status: DiscontinuedceFAZolin 1 gm, Route: IV, Drug form: PDR/INJ, ABXQ8H, Start date: 07/22/14 21:00:00, Duration: 24 hr, Stop date: 07/23/14 13:00:00 Notes: (Same As: Joyce Alcantar) MEDICATION WASTE Product Size: 1000 mgProduct Wasted: ___ mg Start Date: 07/22/14 Stop Date: 07/23/14 Status: CompletedclonazePAM PO, TID, 0 Refill(s) Start Date: 07/20/14 Status: OrderedclonazePAM 0.5 mg oral tablet, disintegrating 0.5 mg=1 tab, PO, TID, 0 Refill(s) Start Date: 07/20/14 Status: Ordereddiclofenac PO, 0 Refill(s) Start Date: 07/20/14 Status: Ordereddiclofenac sodium 75 mg oral enteric coated, delayed-release tablet 75 mg=1 tab, PO, Q12H, # 60 tab, 0 Refill(s) Start Date: 07/20/14 Status: Ordereddocusate 100 mg, 1 cap, Route: PO, Drug form: CAP, Q12H, Dosing Weight 122.727, kg, Start date: 07/22/14 21:00:00, Duration: 30 day, Stop date: 08/21/14 9:00:00 Notes: (Same as: Colace) (Do Not Crush) Start Date: 07/22/14 Stop Date: 07/26/14 Status: Discontinuedfamotidine 20 mg, 2 mL, Route: IVP, Drug form: INJ, Q12H, Dosing Weight 122.727, kg, Start date: 07/22/14 21:00:00, Duration: 30 day, Stop date: 08/21/14 9:00:00 Notes: (Same as: Pepcid)Can be dilute in 5-10cc NS IVP: Slow IV push over at least 2 minutes. Start Date: 07/22/14 Stop Date: 07/26/14 Status: DiscontinuedFlexeril 10 mg oral tablet 10 mg=1 tab, PO, BID, PRN for spasm, # 30 tab, 0 Refill(s) Start Date: 07/24/14 Stop Date: 07/24/14 Status: CompletedLevothroid 100 microgram, 1 tab, Route: PO, Drug form: TAB, Q630AM, Start date: 07/23/14 6: 30:00, Duration: 30 day, Stop date: 08/21/14 6:30:00 Notes: Take 1 hour before or 2 hours after meal; Enteral feeds may interefere with the absorption ofthis medication. (Same as:Levothroid, Synthroid) Start Date: 07/23/14 Stop Date: 07/26/14 Status: Discontinuedlevothyroxine 175 microgram, Route: PO, Drug form: TAB, Daily, Dosing Weight 122.727, kg, Start date: 07/23/14 9:00:00, Duration: 30 day, Stop date: 08/21/14 9:00:00 Start Date: 07/23/14 Stop Date: 07/22/14 Status: Discontinuedlevothyroxine 175 mcg (0.175 mg) oral tablet 175 microgram=1 tab, PO, Daily, # 90 tab, 0 Refill(s) Start Date: 07/20/14 Status: OrderedLipitor 10 mg, 1 tab, Route: PO, Drug form: TAB, Bedtime, Start date: 07/22/14 21:00:00 , Duration: 30 day, Stop date: 08/20/14 21:00:00 Notes: (Same As: Lipitor) Start Date: 07/22/14 Stop Date: 07/26/14 Status: Discontinuedlisinopril 10 mg, 1 tab, Route: PO, Drug form: TAB, Daily, Dosing Weight 122.727, kg, Start date: 07/23/14 9:00:00, Duration: 30 day, Stop date: 08/21/14 9:00:00 Notes: (Same as: Prinivil, Zestril) Start Date: 07/23/14 Stop Date: 07/26/14 Status: Discontinuedlisinopril 10 mg oral tablet 10 mg=1 tab, PO, Daily, # 90 tab, 0 Refill(s) Start Date: 07/20/14 Status: Orderedlovastatin 20 mg, Route: PO, Drug form: TAB, Bedtime, Dosing Weight 122.727, kg, Start date : 07/22/14 21:00:00,Duration: 30 day, Stop date: 08/20/14 21:00:00 Start Date: 07/22/14 Stop Date: 07/22/14 Status: Discontinuedlovastatin 20 mg oral tablet 20 mg=1 tab, PO, Bedtime, # 90 tab, 0 Refill(s) Start Date: 07/20/14 Status: Orderedmeclizine 12.5 mg oral tablet 12.5 mg=1 tab, PO, TID, PRN Dizziness, # 30 tab, 0 Refill(s) Start Date: 07/20/14 Stop Date: 07/30/14 Status: OrderedmetFORMIN 500 mg oral tablet 500 mg=1 tab, PO, BID, # 30 tab, 0 Refill(s) Start Date: 07/20/14 Status: OrderedmetFORMIN 500 mg oral tablet 500 mg, 1 tab, Route: PO, Drug form: TAB, BID, Dosing Weight 122.727, kg, Start date: 07/22/14 17:00:00, Duration: 30 day, Stop date: 08/21/14 9:00:00 Notes: (Same as: Glucophage) Take with meal Start Date: 07/22/14 Stop Date: 07/26/14 Status: DiscontinuedMiraLax 17 gm, 1 pkt, Route: PO, Drug form: PWDR, ONCE, Dosing Weight 122.727, kg, Start date: 07/23/14 18:00:00, Duration: 1 doses or times, Stop date: 07/23/14 18:00:00 Notes: Dissolve in 8 oz of water or juice.(Same as: Miralax) Start Date: 07/23/14 Stop Date: 07/23/14 Status: Completedmorphine 1 mg/ml MANAGER PROJECT (30 mg/30 mL) INJ Syringe 30 mg 30 mg, 30 mL, Route: IV, Initial Loading Dose: 2 mg, MANAGER PROJECT Dose: 1 mg, MANAGER PROJECT Lockout: 10 minutes, Continuous Basal Rate: 0 mg, 4 Hour Limit (In MG): 30, Drug Form: INJ, Continuous, Start date: 07/22/14 12:30:00, Duration: 30 day, Stop date: 08/21/14 12:2... Notes: Dose: Delay: Basal rate: 4hr limit:( Same as:Rapi-Ject) Start Date: 07/22/14 Stop Date: 07/26/14 Status: Discontinuednaloxone 0.04 mg, 0.1 mL, Route: IVP, Drug form: INJ, Q2MIN, Dosing Weight 122.727, kg, PRN Narcotic Reversal, Start date: 07/22/14 12:04:00, Duration: 30 day, Stop date: 08/21/14 12:03:00 Notes: Same as Narcan Start Date: 07/22/14 Stop Date: 07/26/14 Status: DiscontinuedNorco 10/325 oral tablet 1-2 tab, PO, Q4-6H, PRN Pain, # 90 tab, 0 Refill(s) Start Date: 07/24/14 Stop Date: 07/24/14 Status: Completedondansetron 4 mg, 2 mL, Route: IVP, Drug form: INJ, Q8H, Dosing Weight 122.727, kg, PRN Nausea & Vomiting, Start date: 07/22/14 12:02:00, Duration: 30 day, Stop date: 08/21/14 12:01:00 Notes: (Same as: Rohit) MEDICATION WASTE Product Size: 4 mgProduct Wasted: __0_ mg Start Date: 07/22/14 Stop Date: 07/26/14 Status: Discontinuedondansetron 4 mg oral tablet 4 mg=1 tab, PO, TID, # 30 tab, 0 Refill(s) Start Date: 07/24/14 Stop Date: 07/24/14 Status: Completedphentermine 37.5 mg oral capsule 37.5 mg=1 cap, PO, Daily, 0 Refill(s) Start Date: 07/20/14 Status: Orderedpneumococcal 23-valent vaccine 0.5 mL, Route: IM, Drug Form: INJ, Daily, Start date: 07/23/14 9:00:00, Duration : 1 doses or times, Stop date: 07/23/14 9:00:00 Notes: (Same as: Pneumovax 23) Refrigerate Start Date: 07/23/14 Stop Date: 07/23/14 Status: CompletedPrenatal Plus Low Iron oral tablet 1 tab, PO, Daily, 0 Refill(s) Start Date: 07/20/14 Status: OrderedSaline Flush 0.9% 10 ml, Route: IVP, Drug Form: INJ, Dosing Weight 122.727, kg, Q12H, Start date: 07/22/14 21:00:00, Duration: 30 day, Stop date: 08/21/14 9:00:00 Notes: (Same as: BD Posiflush) Start Date: 07/22/14 Stop Date: 07/26/14 Status: DiscontinuedSaline Flush 0.9% 10 ml, Route: IVP, Drug Form: INJ, Dosing Weight 122.727, kg, PRN, PRN Line Flush, Start date: 07/22/14 12:02:00, Duration: 30 day, Stop date: 08/21/14 12: 01:00 Notes: (Same as: BD Posiflush) Start Date: 07/22/14 Stop Date: 07/26/14 Status: Discontinuedsenna 8.6 mg, 1 tab, Route: PO, Drug Form: TAB, Dosing Weight 122.727, kg, Q12H, Start date: 07/22/14 21:00:00, Duration: 30 day, Stop date: 08/21/14 9:00:00 Notes: (Same as: Senokot) Start Date: 07/22/14 Stop Date: 07/26/14 Status: Discontinuedsenna 15 mg oral tablet 15 mg=1 tab, PO, Daily, PRN for constipation, # 30 tab, 0 Refill(s) Start Date: 07/24/14 Stop Date: 07/24/14 Status: CompletedSodium Chloride 0.9% (Bolus) IV 1,000 mL, 1,000 ml/hr, Infuse Over: 1 hr, Route: IV, ONCE, Priority: STAT, Dosing Weight 122.727 kg,Start date: 07/24/14 15:58:00, Duration: 1 doses or times, Stop date: 07/24/14 15:58:00 Start Date: 07/24/14 Stop Date: 07/24/14 Status: CompletedSodium Chloride 0.9% IV 1,000 mL 1,000 mL, Rate: 50 ml/hr, Infuse over: 20 hr, Route: IV, Dosing Weight 122.727 kg, Total Volume: 1,000, Start date: 07/22/14 12:02:00, Stop date: 08/21/14 12: 01:00 Start Date: 07/22/14 Stop Date: 07/26/14 Status: DiscontinuedSynthroid 75 microgram, 1 tab, Route: PO, Drug form: TAB, Q630AM, Start date: 07/23/14 6: 30:00, Duration: 30 day, Stop date: 08/21/14 6:30:00 Notes: Take 1 hour before or 2 hours after meal; Enteral feeds may interefere with the absorption ofthis medication. (Same as:Synthroid, Levothroid) Start Date: 07/23/14 Stop Date: 07/26/14 Status: Discontinuedtrazodone 100 mg oral tablet 100 mg=1 tab, PO, TID, # 270 tab, 0 Refill(s) Start Date: 07/20/14 Status: OrderedValium 5 mg, 1 tab, Route: PO, Drug form: TAB, TID, Dosing Weight 122.727, kg, PRN Spasm, Start date: 07/22/14 12:05:00, Duration: 30 day, Stop date: 08/21/14 12: 04:00 Notes: (Same as: Valium) Start Date: 07/22/14 Stop Date: 07/26/14 Status: DiscontinuedViagra 100 mg oral tablet 100 mg=1 tab, PO, Daily, PRN for erectile dysfunction, 0 Refill(s) Start Date: 07/20/14 Status: Ordered Results BLOOD BANK RESULTS Most recent to oldest [Reference Range]: 1 2 3 ABO/Rh A POS *Unknown* (07/22/14 10:05 AM) Antibody Scrn Negative (07/22/14 10:05 AM) ELECTROLYTES Most recent to oldest 1 2 3 [Reference Range]: Sodium Lvl [135-145 mEq/L] 140 mEq/L 138 mEq/L 143 mEq/L (07/26/14 12:16 AM) (07/25/14 12:01 AM) (07/20/14 12:03 PM) Potassium Lvl [3.5-5.1 3.9 mEq/L 4.1 mEq/L 4.3 mEq/L mEq/L] (07/26/14 12:16 AM) (07/25/14 12:01 AM) (07/20/14 12:03 PM) Chloride Lvl [95-109 mEq/L] 108 mEq/L 107 mEq/L 106 mEq/L (07/26/14 12:16 AM) (07/25/14 12:01 AM) (07/20/14 12:03 PM) CO2 [24-32 mEq/L] 22 mEq/L 20 mEq/L 29 mEq/L *LOW* *LOW* (07/20/14: PM) (07/26/14 12:16 AM) (07/25/14 12 AM) AGAP [10.0-20.0 mEq/L] 13.9 mEq/L 15.1 mEq/L 12.3 mEq/L (07/26/14:16 AM) (07/25/14 12: AM) (07/20/14 1203 PM) CHEM PANEL Most recent to oldest 1 2 3 [Reference Range]: Creatinine Lvl [0.5-1.4 0.9 mg/dL 0.9 mg/dL 1.0 mg/dL mg/dL] (07/26/14 12:16 AM) (07/25/14 12:01 AM) (07/20/14 12: PM) eGFR 94 mL/min/1.73m2 1 94 mL/min/1.73m2 2 83 mL/min/1.73m2 3 *NA* *NA* *NA* (07/26/14 12:16 AM) (07/25/14 12:01 AM) (07/20/14 12:03 PM) BUN [7-22 mg/dL] 10 mg/dL 15 mg/dL 19 mg/dL (07/26/14 12:16 AM) (07/25/14 12:01 AM) (07/20/14 12:03 PM) B/C Ratio [6-25] 11 17 19 (07/26/14 12:16 AM) (07/25/14 12:01 AM) (07/20/14 12:03 PM) Glucose Lvl [70-99 mg/dL] 98 mg/dL 4 113 mg/dL 5 87 mg/dL 6 (07/26/14 12:16 AM) *HI* (07/20/14:03 PM) (07/25/14 12 AM) Total Protein [6.4-8.4 6.6 g/dL 7.2 g/dL 7.3 g/dL g/dL] (07/26/14 12:16 AM) (07/25/14 12:01 AM) (07/20/14 12:03 PM) Albumin Lvl [3.5-5.0 g/dL] 2.9 g/dL 3.1 g/dL 4.0 g/dL *LOW* *LOW* (07/20/14 12:03 PM) (07/26/14 12:16 AM) (07/25/14 12:01 AM) Globulin [2.0-4.0 g/dL] 3.7 g/dL 4.1 g/dL 3.3 g/dL (07/26/14 12:16 AM) *HI* (07/20/14:03 PM) (07/25/14 12: AM) A/G Ratio [0.7-1.6] 0.8 0.8 1.2 (07/26/14 12:16 AM) (07/25/14 12:01 AM) (07/20/14 12:03 PM) Calcium Lvl [8.5-10.5 9.0 mg/dL 8.8 mg/dL 9.2 mg/dL mg/dL] (07/26/14 12:16 AM) (07/25/14 12:01 AM) (07/20/14 12:03 PM) ALT [0-65 unit/L] 63 unit/L 45 unit/L 58 unit/L (07/26/14 12:16 AM) (07/25/14 12:01 AM) (07/20/14 12:03 PM) AST [0-37 unit/L] 31 unit/L 27 unit/L 17 unit/L (07/26/14 12:16 AM) (07/25/14 12:01 AM) (07/20/14 12:03 PM) Alk Phos [39-136 unit/L] 100 unit/L 84 unit/L 91 unit/L (07/26/14 12:16 AM) (07/25/14 12:01 AM) (07/20/14 12:03 PM) Bili Total [0.2-1.3 mg/dL] 0.4 mg/dL 0.5 mg/dL 0.4 mg/dL (07/26/14 12:16 AM) (07/25/14 12:01 AM) (5/19/15 12:03 PM) 1Result Comment: The eGFR is calculated using the CKD-EPI formula. In most young , healthy individualsthe eGFR will be >90 mL/min/1.73m2. The eGFR declines with age. An eGFR of 60-89 may be normal in some populations, particularly the elderly, for whom the CKD-EPI formula has not been extensively validated. Use of the eGFR is not recommended in the following populations: Individuals with unstable creatinine concentrations, including patients and those with serious co-morbid conditions. Patients with extremes in muscle mass or diet. The data above are obtained from the National Kidney Disease Education Program ( NKDEP) which additionally recommends that when the eGFR is used in patients with extremes of body mass index for purposesof drug dosing, the eGFR should be multiplied by the estimated BMI.2Result Comment: The eGFR is calculated using the CKD-EPI formula. In most young, healthy individualsthe eGFR will be >90 mL/ min/1.73m2. The eGFR declines with age. An eGFR of 60-89 may be normal in some populations, particularly the elderly, for whom the CKD-EPI formula has not been extensively validated. Use of the eGFR is not recommended in the following populations: Individuals with unstable creatinine concentrations, including patients and those with serious co-morbid conditions. Patients with extremes in muscle mass or diet. The data above are obtained from the National Kidney Disease Education Program ( NKDEP) which additionally recommends that when the eGFR is used in patients with extremes of body mass index for purposesof drug dosing, the eGFR should be multiplied by the estimated BMI.3Result Comment: The eGFR is calculated using the CKD-EPI formula. In most young, healthy individualsthe eGFR will be >90 mL/ min/1.73m2. The eGFR declines with age. An eGFR of 60-89 may be normal in some populations, particularly the elderly, for whom the CKD-EPI formula has not been extensively validated. Use of the eGFR is not recommended in the following populations: Individuals with unstable creatinine concentrations, including patients and those with serious co-morbid conditions. Patients with extremes in muscle mass or diet. The data above are obtained from the National Kidney Disease Education Program ( NKDEP) which additionally recommends that when the eGFR is used in patients with extremes of body mass index for purposesof drug dosing, the eGFR should be multiplied by the estimated BMI.4Interpretive Data: Adult reference range values reflect the clinical guidelines of the [place] [employer].5Interpretive Data: Adult reference range values reflect the clinical guidelines of the [place] [employer].6Interpretive Data: Adult reference range values reflect the clinical guidelines of the [place] [employer].URINE AND STOOL Most recent to oldest [Reference Range]: 1 2 3 UA Turbidity [Clear] Clear (07/20/14 12:03 PM) UA Color [Yellow] Yellow *NA* (07/20/14 12:03 PM) UA pH [5.0-8.0] 5.5 (07/20/14 12:03 PM) UA Spec Grav [<=1.030] 1.020 (07/20/14 12:03 PM) UA Glucose [Negative mg/dL] Negative mg/dL (07/20/14 12:03 PM) UA Blood [Negative] Negative (07/20/14 12:03 PM) UA Ketones [Negative mg/dL] Negative mg/dL *NA* (07/20/14 12:03 PM) UA Protein [Negative mg/dL] Negative mg/dL (07/20/14 12:03 PM) UA Urobilinogen [0.1-1.0 EU/dL] 0.2 EU/dL (07/20/14 12:03 PM) UA Bili [Negative] Negative *NA* (07/20/14 12:03 PM) UA Leuk Est [Negative] Negative (07/20/14 12:03 PM) UA Nitrite [Negative] Negative (07/20/14 12:03 PM) UA WBC [0-5 /HPF] <1 /HPF (07/20/14 12:03 PM) UA Sq Epi [Few] None Seen (07/20/14 12:03 PM) UA Mucus [None Seen /LPF] Few /LPF *NA* (07/20/14 12:03 PM) HEMATOLOGY Most recent to oldest 1 2 3 [Reference Range]: WBC [3.7-10.4 K/CMM] 11.4 K/CMM 14.0 K/CMM 20.3 K/CMM *HI* *HI* *HI* (07/26/14 12:16 AM) (07/25/14 12:01 AM) (07/24/14 3:35 PM) RBC [4.70-6.10 M/CMM] 4.41 M/CMM 4.54 M/CMM 5.17 M/CMM *LOW* *LOW* (07/24/14 3:35 PM) (07/26/14 12:16 AM) (07/25/14 12:01 AM) Hgb [14.0-18.0 g/dL] 12.5 g/dL 12.9 g/dL 14.8 g/dL *LOW* *LOW* (07/24/14 3:35 PM) (07/26/14 12:16 AM) (07/25/14 12:01 AM) Hct [42.0-54.0 %] 38.8 % 39.7 % 45.4 % *LOW* *LOW* (07/24/14 3:35 PM) (07/26/14 12:16 AM) (07/25/14 12:01 AM) MCV [80.0-94.0 fL] 88.1 fL 87.4 fL 87.7 fL (07/26/14 12:16 AM) (07/25/14 12:01 AM) (07/24/14 3:35 PM) MCH [27.0-31.0 pg] 28.3 pg 28.5 pg 28.5 pg (07/26/14:16 AM) (07/25/14 12:01 AM) (07/24/14 3:35 PM) MCHC [32.0-36.0 g/dL] 32.1 g/dL 32.5 g/dL 32.5 g/dL (07/26/14 12:16 AM) (07/25/14 12:01 AM) (07/24/14 3:35 PM) RDW [11.5-14.5 %] 13.7 % 13.5 % 13.8 % (07/26/14 12:16 AM) (07/25/14 12:01 AM) (07/24/14 3:35 PM) Platelet [133-450 K/CMM] 176 K/CMM 163 K/CMM 212 K/CMM (07/26/14 12:16 AM) (07/25/14 12:01 AM) (07/24/14 3:35 PM) MPV [7.4-10.4 fL] 10.3 fL 10.2 fL 10.2 fL (07/26/14 12:16 AM) (07/25/14 12:01 AM) (07/24/14 3:35 PM) Segs [45.0-75.0 %] 69.2 % 73.8 % 77.9 % (07/26/14 12:16 AM) (07/25/14 12:01 AM) *HI* (07/24/14 3:35 PM) Lymphocytes [20.0-40.0 %] 19.5 % 16.2 % 13.1 % *LOW* *LOW* *LOW* (07/26/14 12:16 AM) (07/25/14 12:01 AM) (07/24/14 3:35 PM) Monocytes [2.0-12.0 %] 9.9 % 8.9 % 8.6 % (07/26/14 12:16 AM) (07/25/14 12:01 AM) (07/24/14 3:35 PM) Eosinophils [0.0-4.0 %] 1.2 % 0.8 % 0.2 % (07/26/14 12:16 AM) (07/25/14 12:01 AM) (07/24/14 3:35 PM) Basophils [0.0-1.0 %] 0.2 % 0.3 % 0.2 % (07/26/14 12:16 AM) (07/25/14 12:01 AM) (07/24/14 3:35 PM) Segs-Bands # [1.5-8.1 7.9 K/CMM 10.3 K/CMM 15.8 K/CMM K/CMM] (07/26/14 12:16 AM) *HI* *HI* (07/25/14 12:01 AM) (07/24/14 3:35 PM) Lymphocytes # [1.0-5.5 2.2 K/CMM 2.3 K/CMM 2.7 K/CMM K/CMM] (07/26/14 12:16 AM) (07/25/14 12:01 AM) (07/24/14 3:35 PM) Monocytes # [0.0-0.8 K/CMM] 1.1 K/CMM 1.2 K/CMM 1.8 K/CMM *HI* *HI* *HI* (07/26/14 12:16 AM) (07/25/14 12:01 AM) (07/24/14 3:35 PM) Eosinophils # [0.0-0.5 0.1 K/CMM 0.1 K/CMM 0.1 K/CMM K/CMM] (07/26/14 12:16 AM) (07/25/14 12:01 AM) (07/20/14 12:03 PM) PT [12.0-14.7 seconds] 13.2 seconds (07/20/14 12:03 PM) INR [0.85-1.17] 1.00 7 (07/20/14 12:03 PM) PTT [22.9-35.8 seconds] 33.7 seconds 8 (07/20/14 12:03 PM) 7Interpretive Data: RECOMMENDED RANGES FOR PROTIME INR: 2.0-3.0 for most medical and surgical thromboembolic states. 2.5-3.5 for artificial heart valves and recurrent embolism. INR SHOULD BE USED ONLY FOR PATIENTS ON STABLE ANTICOAGULANT THERAPY.8Interpretive Data: Heparin Therapeutic Range: 57 - 92 Seconds Immunizations Vaccine Date Refusal Reason pneumococcal 23-valent vaccine 07/24/14 Procedures Procedure Date Related Diagnosis Body Site Colonoscopy Oral operation Social History Social History Type Response Smoking Status Never smoker; Type: Cigarettes; Exposure to Tobacco Smoke None; Cigarette Smoking Last 365 Days No; Reg Smoking Cessation Counseling No Assessment and Plan No data available for this section
--- OUTSIDE RECORDS SUMMARY | 2017-10-29 07:14 | XMS REPORT | Summary of Care ---
:1955 Author Encounter [facility] Lars(FIN) [id number] Date(s): 08/27/14 - 08/27/14 [facility] Outpatient Imaging [address] [address]- [phone] Discharge Disposition: Home Physician Attending: Mark Anthony Jennings MD Vital Signs No data available for [...]
--- OUTSIDE RECORDS SUMMARY | 2017-10-29 07:15 | XMS REPORT | Continuity of Care Document ---
:1955 Author Organization [facility] Care Team Providers Name Role Phone Mark Anthony Jennings MD Unavailable Insurance Providers Payer name Policy type / Policy ID Covered republican ID Policy Macias Coverage type [facility] Encounters Encounter Performer Location Date Office Visit Mark Anthony Jennings MD [facility] [place] Nov 03, 2014 Problems Problem Effective Dates Problem Status [...] po every 8hrs Aug 27, 2014 Active HYDROCODONE-ACETAMINOPHEN 10-325 MG TABS 1 po q h prn pain Nov 03, 2014 Active Vital Signs Date Description Test [...] - 8462-4 BP DIASTOLIC 94 mm Hg Nov 03, 2014 weight E&M - 3141-9 WEIGHT 250.0 lb Nov 03, 2014 height E&M - 8302-2 HEIGHT 73 in Nov 03, 2014 temperature E&M TEMPERATURE 98.0 deg f Nov 03, 2014 pulse rate E&M - 8867-4 PULSE RATE 90 /min Nov 03, 2014 blood pressure, systolic - 8480-6 BP SYSTOLIC 148 mm Hg Nov 03, 2014 blood pressure, diastolic - 8462-4 BP DIASTOLIC 86 mm Hg
[2017-10-29] MEDS ORDERED: NA CHLORIDE 0.9% 500 ML ONE (07:49)
[2017-10-29] MEDS ORDERED: HEPA 1000U/500MLS 1,000 UNIT/500 ML BAG IV ONE ×2 (08:45→09:53)
[2017-10-29] MEDS ORDERED: LIDOCAINE 1% MPF 2 ML AMPULE ONE ×3 (08:45→09:41)
[2017-10-29] MEDS ORDERED: ATROPINE SULF 1 MG/10 ML SYR IV ONE (09:06)
[2017-10-29] MEDS ORDERED: NA CHLORIDE 0.9% 0 ML ONE (09:06)
[2017-10-29] MEDS ORDERED: MIDAZOLAM HCL 2 MG/2 ML INJ ONE ×4 (09:06→09:48)
[2017-10-29] MEDS ORDERED: FENTANYL CITR 100 MCG/2 ML ONE ×2 (09:06→09:48)
[2017-10-29] MEDS ORDERED: LIDOCAINE 1% MPF 5 ML VIAL ONE (09:49)
--- NOTE | 2017-10-30 16:04 | OP ---
Surgeon: Javier Winchester MD Mr. Gonzalez is a 62-year-old male, who was admitted as an outpatient for a left heart catheterization. Procedures: Left heart catheterization and selective coronary arteriogram. Indication: Unstable angina and positive stress test. Description Of Procedure: The patient was brought back to the clinical laboratory technologist as an outpatient, prepped and draped in the routine sterile fashion, given 5 mg of Versed for IV sedation. Left groin access was used. Left common femoral artery was cannulated successfully. StarClose was used to close the case. Catheterization was done using left Arabella and right Arabella catheters, 6-[place]ian. The patient was found to have a normal right coronary. His LAD actually and circumflex were fairly unremarkable wit h some moderate plaquing, but he had a 90% distal left main. He wanted the bifurcation of the LAD an d the circumflex. There were no complications. Blood loss was 5 cc. Total conscious sedation was 3 0 minutes. Operators: Javier Winchester MD and Reji Velasquez. Final Diagnosis: Severe coronary artery disease, left main disease. Plan: Plan is to send him to Dr. Collin Nguyen at [facility] for coronary artery bypass surgery . This will be done today. The case was discussed with the family. AMANDA/KATHY Voice ID: [id number] Report ID: [id number]
== END 2017-10-29 12:22 | disposition short-term general hospital (02) ==
LOC: CCL 07:10
PROC: 4A023N7 Measurement of Cardiac Sampling and Pressure, Left Heart, Percutaneous Approach (ICD-10-PCS; principal; 2017-10-29)
PROC: B2111ZZ Fluoroscopy of Multiple Coronary Arteries using Low Osmolar Contrast (ICD-10-PCS; 2017-10-29)
DX: I25.110 Atherosclerotic heart disease of native coronary artery with unstable angina pectoris (principal); E11.9 Type 2 diabetes mellitus without complications; I10 Essential (primary) hypertension; E78.5 Hyperlipidemia, unspecified; Z82.49 Family history of ischemic heart disease and other diseases of the circulatory system; Z79.84 Long term (current) use of oral hypoglycemic drugs
CPT/HCPCS: 36415; 71046; 80048; 82962; 85025; 85610; 85730; 93454; C1893; J0583; J2001; J2250; J3010

== ENCOUNTER 2018-03-31 19:25 | Observation (INO) | payer BC, OTHER ==
--- OUTSIDE RECORDS SUMMARY | 2018-03-31 19:29 | XMS REPORT | Clinical Summary ---
:1955 Author Organization [facility] Address [address] [place] [address] Care Team Providers Name Role Phone Carlos Saxena Unavailable Allergies No Known Allergies Medications Medication Sig Dispensed Refills Start Date End Date Status metFORMIN Take 500 mg by 0 Active (GLUCOPHAGE) 500 MG mouth 2 (two) tablet times daily with breakfast and dinner. levothyroxine Take 175 mcg by 0 Active (SYNTHROID, mouth Every LEVOTHROID) 175 MCG morning on an tablet empty stomach. fenofibrate Take 160 mg by 0 Active (TRIGLIDE,LOFIBRA) mouth daily. 160 MG tablet lisinopril Take 10 mg by 0 Active (PRINIVIL,ZESTRIL) mouth daily. 10 MG tablet glimepiride Take 2 mg by 0 Active (AMARYL) 2 MG mouth 2 (two) tablet times daily. clonazePAM Take 0.5 mg by 0 Active (KLONOPIN) 0.5 MG mouth nightly. tablet aspirin 81 MG EC Take 81 mg by 0 Active tablet mouth daily. multivitamin per Take 1 tablet 0 Active tablet by mouth daily. atorvastatin Take 1 tablet 30 tablet 1 11/11/2017 Active (LIPITOR) 80 MG (80 mg total) 9 tablet by mouth nightly. metoprolol Take 1 tablet 60 tablet 1 11/11/2017 Active (LOPRESSOR) 25 MG (25 mg total) 9 tablet by mouth 2 (two) times daily. torsemide (DEMADEX) Take 1 tablet 30 tablet 1 11/11/2017 Active 20 MG tablet (20 mg total) 9 by mouth daily. diclofenac Take 75 mg by 0 Discontinued (VOLTAREN) 75 MG EC mouth 2 (two) 8 tablet times daily. lovastatin Take 20 mg by 0 Discontinued (MEVACOR) 20 MG mouth nightly. 8 tablet traMADol (ULTRAM) Take 1 tablet 30 tablet 0 11/11/2017 50 mg tablet (50 mg total) 8 by mouth every 6 (six) hours as needed for up to 10 days. Max Daily Amount: 200 mg Active Problems Problem Noted Date Coronary artery disease due to lipid rich plaque 10/30/2017 CAD (coronary artery disease) 10/29/2017 Respiratory insufficiency Encounters Date Type Specialty Care Team Description 11/20/2017 Office Visit Cardiology Lemuel, Postoperative state Collin Adam (Primary Dx) 11/08/2017 Surgery Lemuel, CREATION,PERICARDIAL Collin Adam WINDOW 11/08/2017 Anesthesia Event Benito Medrano MD 10/30/2017 Anesthesia Event Rajesh Esparza MD 10/30/2017 Surgery Lemuel, BYPASS,AORTO CORONARY Collin Adam LINDSEY/SVG 10/29/2017 - Hospital Encounter Cardiology GelyMoon Coronary artery disease due to lipid rich plaque; 11/11/2017 MD Franco Essential hypertension; Lemuel, Respiratory insufficiency Collin Adam MD 10/29/2017 Orders Only General Internal Medicine after 03/30/2017 Social History Tobacco Use Types Packs/Day Years Used Date Never Smoker Smokeless Tobacco: Never Used Tobacco Cessation: Counseling Given: No Alcohol Use Drinks/Week oz/Week Comments No Sex Assigned at Date Recorded Not on file Job Start Date Occupation Industry Not on file Not on file Not on file Travel History Travel Start Travel End No recent travel history available. Last Filed Vital Signs Vital Sign Reading Time Taken Blood Pressure 123/63 11/20/2017 10:14 AM CDT Pulse 81 11/20/2017 10:14 AM CDT Temperature 37 C (98.6 F) 11/20/2017 10:14 AM CDT Respiratory Rate 18 11/20/2017 10:14 AM CDT Oxygen Saturation 98% 11/20/2017 10:14 AM CDT Inhaled Oxygen Concentration 21% 11/07/2017 9:00 PM CDT Weight 123.8 kg (273 lb) 11/20/2017 10:14 AM CDT Height 188 cm (6' 2") 11/20/2017 10:14 AM CDT Body Mass Index 35.05 11/20/2017 10:14 AM CDT Plan of Treatment Health Maintenance Due Date Last Done Comments INFLUENZA VACCINE 12/02/2017 Procedures Procedure Name Priority Date/Time Associated Comments Diagnosis REPORT OF PROCEDURE - 11/12/2017 1:41 ENDOSCOPY SCAN PM CDT VASCULAR DIAGRAM -SCAN 11/12/2017 1:41 PM CDT RHYTHM STRIP - SCAN 11/12/2017 1:41 PM CDT POCT-GLUCOSE METER Routine 11/11/2017 3:51 Results for this PM CDT procedure are in the results section. POCT-GLUCOSE METER Routine 11/11/2017 12:16 Results for this PM CDT procedure are in the results section. XR CHEST 1 VIEW Routine 11/11/2017 9:07 Results for this PORTABLE/BEDSIDE AM CDT procedure are in the results section. POCT-GLUCOSE METER Routine 11/11/2017 8:06 Results for this AM CDT procedure are in the results section. CBC (HEMOGRAM ONLY) Routine 11/11/2017 4:24 Results for this AM CDT procedure are in the results section. BASIC METABOLIC PANEL Routine 11/11/2017 4:24 Results for this (7) AM CDT procedure are in the results section. MAGNESIUM Routine 11/11/2017 4:24 Results for this AM CDT procedure are in the results section. POCT-GLUCOSE METER Routine 11/10/2017 9:11 Results for this PM CDT procedure are in the results section. POCT-GLUCOSE METER Routine 11/10/2017 4:57 Results for this PM CDT procedure are in the results section. POCT-GLUCOSE METER Routine 11/10/2017 12:00 Results for this PM CDT procedure are in the results section. XR CHEST 1 VIEW Routine 11/10/2017 8:10 Results for this PORTABLE/BEDSIDE AM CDT procedure are in the results section. POCT-GLUCOSE METER Routine 11/10/2017 8:01 Results for this AM CDT procedure are in the results section. CBC (HEMOGRAM ONLY) Routine 11/10/2017 4:13 Results for this AM CDT procedure are in the results section. BASIC METABOLIC PANEL Routine 11/10/2017 4:13 Results for this (7) AM CDT procedure are in the results section. MAGNESIUM Routine 11/10/2017 4:13 Results for this AM CDT procedure are in the results section. POCT-GLUCOSE METER Routine 11/09/2017 9:28 Results for this PM CDT procedure are in the results section. TRANSFUSION SERVICE 11/09/2017 5:50 REPORT - SCAN PM CDT POCT-GLUCOSE METER Routine 11/09/2017 5:31 Results for this PM CDT procedure are in the results section. POCT-GLUCOSE METER Routine 11/09/2017 1:06 Results for this PM CDT procedure are in the results section. XR ABDOMEN 1 VIEW STAT 11/09/2017 12:54 Results for this PM CDT procedure are in the results section. POCT-GLUCOSE METER Routine 11/09/2017 11:36 Results for this AM CDT procedure are in the results section. XR CHEST 1 VIEW Routine 11/09/2017 8:40 Results for this PORTABLE/BEDSIDE AM CDT procedure are in the results section. POCT-GLUCOSE METER Routine 11/09/2017 7:25 Results for this AM CDT procedure are in the results section. CBC (HEMOGRAM ONLY) Routine 11/09/2017 3:10 Results for this AM CDT procedure are in the results section. BASIC METABOLIC PANEL Routine 11/09/2017 3:10 Results for this (7) AM CDT procedure are in the results section. MAGNESIUM Routine 11/09/2017 3:10 Results for this AM CDT procedure are in the results section. POCT-GLUCOSE METER Routine 11/08/2017 9:29 Results for this PM CDT procedure are in the results section. BLOOD GAS, ARTERIAL STAT 11/08/2017 5:02 Results for this PM CDT procedure are in the results section. CALCIUM, IONIZED STAT 11/08/2017 4:35 Results for this PM CDT procedure are in the results section. SODIUM NA-STAT LAB Routine 11/08/2017 4:35 Results for this PM CDT procedure are in the results section. HGB/HCT (H&H) - STAT STAT 11/08/2017 4:35 Results for this LAB PM CDT procedure are in the results section. GLUCOSE-STAT LAB STAT 11/08/2017 4:35 Results for this PM CDT procedure are in the results section. POTASSIUM-STAT LAB STAT 11/08/2017 4:35 Results for this PM CDT procedure are in the results section. BLOOD GAS, ARTERIAL STAT 11/08/2017 4:35 Results for this PM CDT procedure are in the results section. XR CHEST 1 VIEW STAT 11/08/2017 4:13 Results for this PORTABLE/BEDSIDE PM CDT procedure are in the results section. ANESTHESIA RACHID Routine 11/08/2017 3:53 Results for this PM CDT procedure are in the results section. PREPARE RBC STAT 11/08/2017 3:35 Results for this PM CDT procedure are in the results section. HGB/HCT (H&H) - STAT STAT 11/08/2017 3:02 Results for this LAB PM CDT procedure are in the results section. GLUCOSE-STAT LAB STAT 11/08/2017 3:02 Results for this PM CDT procedure are in the results section. POTASSIUM-STAT LAB STAT 11/08/2017 3:02 Results for this PM CDT procedure are in the results section. SODIUM NA-STAT LAB STAT 11/08/2017 3:02 Results for this PM CDT procedure are in the results section. BLOOD GAS, ARTERIAL STAT 11/08/2017 3:02 Results for this PM CDT procedure are in the results section. CALCIUM, IONIZED STAT 11/08/2017 3:02 Results for this PM CDT procedure are in the results section. RRL CRITICAL LABS STAT 11/08/2017 3:02 Results for this (ABG,NA,K,H&H,GLUCOSE) PM CDT procedure are in the results section. CREATION,PERICARDIAL 11/08/2017 2:30 Pericardial WINDOW PM CDT effusion POCT-GLUCOSE METER Routine 11/08/2017 11:22 Results for this AM CDT procedure are in the results section. POCT-GLUCOSE METER Routine 11/08/2017 7:39 Results for this AM CDT procedure are in the results section. CBC (HEMOGRAM ONLY) Routine 11/08/2017 2:11 Results for this AM CDT procedure are in the results section. BASIC METABOLIC PANEL Routine 11/08/2017 2:11 Results for this (7) AM CDT procedure are in the results section. MAGNESIUM Routine 11/08/2017 2:11 Results for this AM CDT procedure are in the results section. TYPE AND SCREEN, Routine 11/08/2017 2:09 Results for this AUTOMATED AM CDT procedure are in the results section. PT/APTT Routine 11/08/2017 2:09 Results for this AM CDT procedure are in the results section. POCT-GLUCOSE METER Routine 11/07/2017 9:52 Results for this PM CDT procedure are in the results section. ECHOCARDIOGRAM REPORT - 11/07/2017 6:50 SCAN PM CDT POCT-GLUCOSE METER Routine 11/07/2017 5:44 Results for this PM CDT procedure are in the results section. POCT-GLUCOSE METER Routine 11/07/2017 4:42 Results for this PM CDT procedure are in the results section. LIMITED 2D Routine 11/07/2017 3:13 Results for this ECHOCARDIOGRAM PM CDT procedure are in the results section. POCT-GLUCOSE METER Routine 11/07/2017 1:07 Results for this PM CDT procedure are in the results section. POCT-GLUCOSE METER Routine 11/07/2017 12:50 Results for this PM CDT procedure are in the results section. XR CHEST 1 VIEW Routine 11/07/2017 9:09 Results for this PORTABLE/BEDSIDE AM CDT procedure are in the results section. POCT-GLUCOSE METER Routine 11/07/2017 8:09 Results for this AM CDT procedure are in the results section. CONT WAVE PULSED Routine 11/07/2017 8:08 DOPPLER AM CDT MAGNESIUM Routine 11/07/2017 4:18 Results for this AM CDT procedure are in the results section. BASIC METABOLIC PANEL Routine 11/07/2017 4:18 Results for this (7) AM CDT procedure are in the results section. POCT-GLUCOSE METER Routine 11/06/2017 9:39 Results for this PM CDT procedure are in the results section. POCT-GLUCOSE METER Routine 11/06/2017 7:04 Results for this AM CDT procedure are in the results section. XR CHEST 1 VIEW Routine 11/06/2017 6:41 Results for this PORTABLE/BEDSIDE AM CDT procedure are in the results section. BASIC METABOLIC PANEL Routine 11/06/2017 4:44 Results for this (7) AM CDT procedure are in the results section. POCT-GLUCOSE METER Routine 11/05/2017 9:20 Results for this PM CDT procedure are in the results section. POCT-GLUCOSE METER Routine 11/05/2017 4:23 Results for this PM CDT procedure are in the results section. POCT-GLUCOSE METER Routine 11/05/2017 12:11 Results for this PM CDT procedure are in the results section. POCT-GLUCOSE METER Routine 11/05/2017 7:34 Results for this AM CDT procedure are in the results section. XR CHEST 1 VIEW Routine 11/05/2017 7:05 Results for this PORTABLE/BEDSIDE AM CDT procedure are in the results section. CBC W/PLT COUNT & AUTO Routine 11/05/2017 3:39 Results for this DIFFERENTIAL AM CDT procedure are in the results section. BASIC METABOLIC PANEL Routine 11/05/2017 3:39 Results for this (7) AM CDT procedure are in the results section. CBC W/PLT COUNT & AUTO Routine 11/05/2017 3:39 Results for this DIFFERENTIAL AM CDT procedure are in the results section. POCT-GLUCOSE METER Routine 11/04/2017 9:00 Results for this PM CDT procedure are in the results section. POCT-GLUCOSE METER Routine 11/04/2017 5:12 Results for this PM CDT procedure are in the results section. POCT-GLUCOSE METER Routine 11/04/2017 12:16 Results for this PM CDT procedure are in the results section. XR CHEST 1 VIEW [place] 11/04/2017 11:43 Results for this PORTABLE/BEDSIDE AM CDT procedure are in the results section. BASIC METABOLIC PANEL Routine 11/04/2017 9:34 Results for this (7) AM CDT procedure are in the results section. CBC W/PLT COUNT & AUTO Routine 11/04/2017 3:46 Results for this DIFFERENTIAL AM CDT procedure are in the results section. CBC W/PLT COUNT & AUTO Routine 11/04/2017 3:46 Results for this DIFFERENTIAL AM CDT procedure are in the results section. BASIC METABOLIC PANEL Routine 11/04/2017 3:46 Results for this (7) AM CDT procedure are in the results section. BASIC METABOLIC PANEL Routine 11/03/2017 11:46 Results for this (7) PM CDT procedure are in the results section. POCT-GLUCOSE METER Routine 11/03/2017 9:13 Results for this PM CDT procedure are in the results section. BASIC METABOLIC PANEL Routine 11/03/2017 8:04 Results for this (7) PM CDT procedure are in the results section. POCT-GLUCOSE METER Routine 11/03/2017 5:34 Results for this PM CDT procedure are in the results section. ECHOCARDIOGRAM REPORT - 11/03/2017 5:25 SCAN PM CDT BASIC METABOLIC PANEL Routine 11/03/2017 3:09 Results for this (7) PM CDT procedure are in the results section. NM LUNG SCAN PERFUSION STAT 11/03/2017 2:56 Results for this PARTICULATE VENT PM CDT procedure are in the results section. POCT-GLUCOSE METER Routine 11/03/2017 12:14 Results for this PM CDT procedure are in the results section. VENOUS DOPPLER LEGS STAT 11/03/2017 11:41 Results for this BILATERAL AM CDT procedure are in the results section. LIMITED 2D [place] 11/03/2017 10:43 Results for this ECHOCARDIOGRAM AM CDT procedure are in the results section. BASIC METABOLIC PANEL Routine 11/03/2017 10:21 Results for this (7) AM CDT procedure are in the results section. POCT-GLUCOSE METER Routine 11/03/2017 8:41 Results for this AM CDT procedure are in the results section. OSMOLALITY, SERUM Routine 11/03/2017 5:54 Results for this AM CDT procedure are in the results section. BASIC METABOLIC PANEL STAT 11/03/2017 5:54 Results for this (7) AM CDT procedure are in the results section. OSMOLALITY, URINE Routine 11/03/2017 5:18 Results for this AM CDT procedure are in the results section. SODIUM, RANDOM URINE Routine 11/03/2017 5:18 Results for this AM CDT procedure are in the results section. (CELLAVISION MANUAL Routine 11/03/2017 3:56 Results for this DIFF) AM CDT procedure are in the results section. CBC W/PLT COUNT & AUTO Routine 11/03/2017 3:56 Results for this DIFFERENTIAL AM CDT procedure are in the results section. CBC W/PLT COUNT & AUTO Routine 11/03/2017 3:56 Results for this DIFFERENTIAL AM CDT procedure are in the results section. BASIC METABOLIC PANEL STAT 11/03/2017 3:56 Results for this (7) AM CDT procedure are in the results section. TSH/FREE T4 IF Routine 11/03/2017 3:56 Results for this INDICATED AM CDT procedure are in the results section. BASIC METABOLIC PANEL STAT 11/03/2017 2:01 Results for this (7) AM CDT procedure are in the results section. BASIC METABOLIC PANEL STAT 11/03/2017 12:21 Results for this (7) AM CDT procedure are in the results section. BASIC METABOLIC PANEL STAT 11/02/2017 10:27 Results for this (7) PM CDT procedure are in the results section. POCT-GLUCOSE METER Routine 11/02/2017 10:08 Results for this PM CDT procedure are in the results section. BASIC METABOLIC PANEL STAT 11/02/2017 8:19 Results for this (7) PM CDT procedure are in the results section. BASIC METABOLIC PANEL STAT 11/02/2017 6:32 Results for this (7) PM CDT procedure are in the results section. ECHOCARDIOGRAM REPORT - 11/02/2017 6:[address] BRAIN WITHOUT IV STAT 11/02/2017 4:59 Results for this CONTRAST PM CDT procedure are in the results section. BASIC METABOLIC PANEL STAT 11/02/2017 3:41 Results for this (7) PM CDT procedure are in the results section. BASIC METABOLIC PANEL STAT 11/02/2017 12:48 Results for this (7) PM CDT procedure are in the results section. 2D ECHO W/ DOPPLER STAT 11/02/2017 11:28 Results for this (CW/PW/COLOR) AM CDT procedure are in the results section. BASIC METABOLIC PANEL STAT 11/02/2017 11:09 Results for this (7) AM CDT procedure are in the results section. CORTISOL Routine 11/02/2017 11:09 Results for this AM CDT procedure are in the results section. URIC ACID Routine 11/02/2017 11:09 Results for this AM CDT procedure are in the results section. URINALYSIS W/ Routine 11/02/2017 10:58 Results for this MICROSCOPIC AM CDT procedure are in the results section. UREA NITROGEN, RANDOM Routine 11/02/2017 10:58 Results for this URINE AM CDT procedure are in the results section. OSMOLALITY, URINE Routine 11/02/2017 10:58 Results for this AM CDT procedure are in the results section. SODIUM, RANDOM URINE Routine 11/02/2017 10:58 Results for this AM CDT procedure are in the results section. CHLORIDE, RANDOM URINE Routine 11/02/2017 10:58 Results for this AM CDT procedure are in the results section. SODIUM, RANDOM URINE Routine 11/02/2017 10:58 Results for this AM CDT procedure are in the results section. XR CHEST 1 VIEW STAT 11/02/2017 9:57 Results for this PORTABLE/BEDSIDE AM CDT procedure are in the results section. BLOOD GAS, ARTERIAL STAT 11/02/2017 9:27 Results for this AM CDT procedure are in the results section. POCT-GLUCOSE METER Routine 11/02/2017 8:41 Results for this AM CDT procedure are in the results section. BASIC METABOLIC PANEL STAT 11/02/2017 8:39 Results for this (7) AM CDT procedure are in the results section. MAGNESIUM Routine 11/02/2017 6:42 Results for this AM CDT procedure are in the results section. B-TYPE NATRIURETIC Routine 11/02/2017 6:42 Results for this FACTOR (BNP) AM CDT procedure are in the results section. CBC (HEMOGRAM ONLY) Routine 11/02/2017 6:42 Results for this AM CDT procedure are in the results section. BASIC METABOLIC PANEL Routine 11/02/2017 6:42 Results for this (7) AM CDT procedure are in the results section. POCT-GLUCOSE METER Routine 11/01/2017 8:27 Results for this PM CDT procedure are in the results section. POCT-GLUCOSE METER Routine 11/01/2017 6:14 Results for this PM CDT procedure are in the results section. POCT-GLUCOSE METER Routine 11/01/2017 1:51 Results for this PM CDT procedure are in the results section. POCT-GLUCOSE METER Routine 11/01/2017 8:45 Results for this AM CDT procedure are in the results section. ECG 12-LEAD Routine 11/01/2017 6:24 AM CDT Procedure Note - Interface, External Ris In - 11/01/2017 6:44 AM CDT Ventricular Rate 93 BPM Atrial Rate 93 BPM P-R Interval 150 ms QRS Duration 100 ms Q-T Interval 372 ms QTC Calculation(Bazett) 462 ms P Lodi 14 degrees R Lodi 32 degrees T Lodi 39 degrees Normal sinus rhythm Nonspecific ST abnormality Abnormal ECG When compared with ECG of 30-OCT-2017 21:56, Significant changes have occurred ECG 12-LEAD Routine 11/01/2017 6:24 Results for this AM CDT procedure are in the results section. CBC (HEMOGRAM ONLY) Routine 11/01/2017 6:17 Results for this AM CDT procedure are in the results section. PHOSPHORUS Routine 11/01/2017 6:17 Results for this AM CDT procedure are in the results section. MAGNESIUM Routine 11/01/2017 6:17 Results for this AM CDT procedure are in the results section. BASIC METABOLIC PANEL Routine 11/01/2017 6:17 Results for this (7) AM CDT procedure are in the results section. XR CHEST 1 VIEW Routine 11/01/2017 4:13 Results for this PORTABLE/BEDSIDE AM CDT procedure are in the results section. POCT-GLUCOSE METER Routine 11/01/2017 3:34 Results for this AM CDT procedure are in the results section. POCT-GLUCOSE METER Routine 10/31/2017 10:30 Results for this PM CDT procedure are in the results section. POCT-GLUCOSE METER Routine 10/31/2017 7:44 Results for this PM CDT procedure are in the results section. POCT-GLUCOSE METER Routine 10/31/2017 11:25 Results for this AM CDT procedure are in the results section. POCT-GLUCOSE METER Routine 10/31/2017 6:32 Results for this AM CDT procedure are in the results section. POCT-GLUCOSE METER Routine 10/31/2017 5:59 Results for this AM CDT procedure are in the results section. XR CHEST 1 VIEW Routine 10/31/2017 4:07 Results for this PORTABLE/BEDSIDE AM CDT procedure are in the results section. CBC (HEMOGRAM ONLY) Routine 10/31/2017 3:05 Results for this AM CDT procedure are in the results section. PHOSPHORUS Routine 10/31/2017 3:05 Results for this AM CDT procedure are in the results section. MAGNESIUM Routine 10/31/2017 3:05 Results for this AM CDT procedure are in the results section. BASIC METABOLIC PANEL Routine 10/31/2017 3:05 Results for this (7) AM CDT procedure are in the results section. POCT-GLUCOSE METER Routine 10/31/2017 2:30 Results for this AM CDT procedure are in the results section. POCT-GLUCOSE METER Routine 10/31/2017 1:06 Results for this AM CDT procedure are in the results section. POCT-GLUCOSE METER Routine 10/31/2017 12:29 Results for this AM CDT procedure are in the results section. POCT-GLUCOSE METER Routine 10/30/2017 10:55 Results for this PM CDT procedure are in the results section. POCT-GLUCOSE METER Routine 10/30/2017 10:14 Results for this PM CDT procedure are in the results section. ECG 12-LEAD Routine 10/30/2017 9:56 Results for this PM CDT procedure are in the results section. POCT-GLUCOSE METER Routine 10/30/2017 9:03 Results for this PM CDT procedure are in the results section. POCT-GLUCOSE METER Routine 10/30/2017 8:04 Results for this PM CDT procedure are in the results section. LACTIC ACID, ARTERIAL, Routine 10/30/2017 7:56 Results for this WHOLE BLOOD PM CDT procedure are in the results section. CALCIUM, IONIZED Routine 10/30/2017 7:56 Results for this PM CDT procedure are in the results section. MAGNESIUM Routine 10/30/2017 7:56 Results for this PM CDT procedure are in the results section. POTASSIUM STAT 10/30/2017 7:56 Results for this PM CDT procedure are in the results section. POCT-GLUCOSE METER Routine 10/30/2017 7:04 Results for this PM CDT procedure are in the results section. TRANSFUSION SERVICE 10/30/2017 6:02 REPORT - SCAN PM CDT BLOOD GAS, ARTERIAL STAT 10/30/2017 5:45 Results for this PM CDT procedure are in the results section. POCT-GLUCOSE METER Routine 10/30/2017 5:27 Results for this PM CDT procedure are in the results section. XR CHEST 1 VIEW STAT 10/30/2017 4:41 Results for this PORTABLE/BEDSIDE PM CDT procedure are in the results section. POCT-GLUCOSE METER Routine 10/30/2017 4:31 Results for this PM CDT procedure are in the results section. (CELLAVISION MANUAL STAT 10/30/2017 2:45 Results for this DIFF) PM CDT procedure are in the results section. CBC W/PLT COUNT & AUTO STAT 10/30/2017 2:45 Results for this DIFFERENTIAL PM CDT procedure are in the results section. HGB/HCT (H&H) - STAT STAT 10/30/2017 2:45 Results for this LAB PM CDT procedure are in the results section. GLUCOSE-STAT LAB STAT 10/30/2017 2:45 Results for this PM CDT procedure are in the results section. POTASSIUM-STAT LAB STAT 10/30/2017 2:45 Results for this PM CDT procedure are in the results section. SODIUM NA-STAT LAB STAT 10/30/2017 2:45 Results for this PM CDT procedure are in the results section. BLOOD GAS, ARTERIAL STAT 10/30/2017 2:45 Results for this PM CDT procedure are in the results section. FIBRINOGEN STAT 10/30/2017 2:45 Results for this PM CDT procedure are in the results section. PT/APTT STAT 10/30/2017 2:45 Results for this PM CDT procedure are in the results section. BASIC METABOLIC PANEL STAT 10/30/2017 2:45 Results for this (7) PM CDT procedure are in the results section. CBC (HEMOGRAM ONLY) STAT 10/30/2017 2:45 Results for this PM CDT procedure are in the results section. OXYGEN SATURATION, STAT 10/30/2017 2:45 Results for this MEASURED PM CDT procedure are in the results section. LACTIC ACID, ARTERIAL, STAT 10/30/2017 2:45 Results for this WHOLE BLOOD PM CDT procedure are in the results section. RRL CRITICAL LABS STAT 10/30/2017 2:45 Results for this (ABG,NA,K,H&H,GLUCOSE) PM CDT procedure are in the results section. HGB/HCT (H&H) - STAT STAT 10/30/2017 2:45 Results for this LAB PM CDT procedure are in the results section. HEMOGLOBIN-STAT LAB STAT 10/30/2017 2:45 Results for this PM CDT procedure are in the results section. GLUCOSE-STAT LAB STAT 10/30/2017 2:45 Results for this PM CDT procedure are in the results section. CALCIUM, IONIZED STAT 10/30/2017 2:45 Results for this PM CDT procedure are in the results section. POTASSIUM-STAT LAB STAT 10/30/2017 2:45 Results for this PM CDT procedure are in the results section. SODIUM NA-STAT LAB STAT 10/30/2017 2:45 Results for this PM CDT procedure are in the results section. CBC W/PLT COUNT & AUTO STAT 10/30/2017 2:45 Results for this DIFFERENTIAL PM CDT procedure are in the results section. PHOSPHORUS STAT 10/30/2017 2:45 Results for this PM CDT procedure are in the results section. GLUCOSE STAT 10/30/2017 2:45 Results for this PM CDT procedure are in the results section. MAGNESIUM STAT 10/30/2017 2:45 Results for this PM CDT procedure are in the results section. POTASSIUM STAT 10/30/2017 2:45 Results for this PM CDT procedure are in the results section. SODIUM STAT 10/30/2017 2:45 Results for this PM CDT procedure are in the results section. POCT-ACT Routine 10/30/2017 1:12 Results for this PM CDT procedure are in the results section. HGB/HCT (H&H) - STAT STAT 10/30/2017 1:11 Results for this LAB PM CDT procedure are in the results section. GLUCOSE-STAT LAB STAT 10/30/2017 1:11 Results for this PM CDT procedure are in the results section. POTASSIUM-STAT LAB STAT 10/30/2017 1:11 Results for this PM CDT procedure are in the results section. SODIUM NA-STAT LAB STAT 10/30/2017 1:11 Results for this PM CDT procedure are in the results section. BLOOD GAS, ARTERIAL STAT 10/30/2017 1:11 Results for this PM CDT procedure are in the results section. CALCIUM, IONIZED STAT 10/30/2017 1:11 Results for this PM CDT procedure are in the results section. RRL CRITICAL LABS STAT 10/30/2017 1:11 Results for this (ABG,NA,K,H&H,GLUCOSE) PM CDT procedure are in the results section. POCT-ACT Routine 10/30/2017 12:40 Results for this PM CDT procedure are in the results section. HGB/HCT (H&H) - STAT STAT 10/30/2017 12:38 Results for this LAB PM CDT procedure are in the results section. GLUCOSE-STAT LAB STAT 10/30/2017 12:38 Results for this PM CDT procedure are in the results section. POTASSIUM-STAT LAB STAT 10/30/2017 12:38 Results for this PM CDT procedure are in the results section. SODIUM NA-STAT LAB STAT 10/30/2017 12:38 Results for this PM CDT procedure are in the results section. BLOOD GAS, ARTERIAL STAT 10/30/2017 12:38 Results for this PM CDT procedure are in the results section. RRL CRITICAL LABS STAT 10/30/2017 12:38 Results for this (ABG,NA,K,H&H,GLUCOSE) PM CDT procedure are in the results section. POCT-ACT Routine 10/30/2017 12:14 Results for this PM CDT procedure are in the results section. HGB/HCT (H&H) - STAT STAT 10/30/2017 12:09 Results for this LAB PM CDT procedure are in the results section. GLUCOSE-STAT LAB STAT 10/30/2017 12:09 Results for this PM CDT procedure are in the results section. POTASSIUM-STAT LAB STAT 10/30/2017 12:09 Results for this PM CDT procedure are in the results section. SODIUM NA-STAT LAB STAT 10/30/2017 12:09 Results for this PM CDT procedure are in the results section. BLOOD GAS, ARTERIAL STAT 10/30/2017 12:09 Results for this PM CDT procedure are in the results section. RRL CRITICAL LABS STAT 10/30/2017 12:09 Results for this (ABG,NA,K,H&H,GLUCOSE) PM CDT procedure are in the results section. BLOOD GAS, VENOUS STAT 10/30/2017 12:09 Results for this PM CDT procedure are in the results section. POCT-ACT Routine 10/30/2017 11:49 Results for this AM CDT procedure are in the results section. HGB/HCT (H&H) - STAT STAT 10/30/2017 11:39 Results for this LAB AM CDT procedure are in the results section. GLUCOSE-STAT LAB STAT 10/30/2017 11:39 Results for this AM CDT procedure are in the results section. POTASSIUM-STAT LAB STAT 10/30/2017 11:39 Results for this AM CDT procedure are in the results section. SODIUM NA-STAT LAB STAT 10/30/2017 11:39 Results for this AM CDT procedure are in the results section. BLOOD GAS, ARTERIAL STAT 10/30/2017 11:39 Results for this AM CDT procedure are in the results section. CALCIUM, IONIZED STAT 10/30/2017 11:39 Results for this AM CDT procedure are in the results section. RRL CRITICAL LABS STAT 10/30/2017 11:39 Results for this (ABG,NA,K,H&H,GLUCOSE) AM CDT procedure are in the results section. ENDOSCOPIC 10/30/2017 10:05 Coronary artery HARVEST,VEIN AM CDT disease due to calcified coronary lesion BYPASS,AORTO CORONARY 10/30/2017 10:05 Coronary artery LINDSEY/SVG AM CDT disease due to calcified coronary lesion POCT-GLUCOSE METER Routine 10/30/2017 7:22 Results for this AM CDT procedure are in the results section. CBC (HEMOGRAM ONLY) Routine 10/30/2017 1:37 Results for this AM CDT procedure are in the results section. APTT Routine 10/30/2017 1:37 Results for this AM CDT procedure are in the results section. HEMOGLOBIN A1C Routine 10/30/2017 1:37 Results for this AM CDT procedure are in the results section. MAGNESIUM Routine 10/30/2017 1:37 Results for this AM CDT procedure are in the results section. BASIC METABOLIC PANEL Routine 10/30/2017 1:37 Results for this (7) AM CDT procedure are in the results section. LIPID PANEL Routine 10/30/2017 1:37 Results for this AM CDT procedure are in the results section. ECG 12-LEAD Routine 10/29/2017 7:15 Results for this PM CDT procedure are in the results section. ECG 12-LEAD Routine 10/29/2017 7:13 Results for this PM CDT procedure are in the results section. CBC W/PLT COUNT & AUTO Routine 10/29/2017 6:15 Results for this DIFFERENTIAL PM CDT procedure are in the results section. TYPE AND SCREEN, Routine 10/29/2017 6:15 Results for this AUTOMATED PM CDT procedure are in the results section. TSH Routine 10/29/2017 6:15 Results for this PM CDT procedure are in the results section. PROTHROMBIN TIME/INR Routine 10/29/2017 6:15 Results for this PM CDT procedure are in the results section. COMPREHENSIVE Routine 10/29/2017 6:15 Results for this METABOLIC PANEL PM CDT procedure are in the results section. APTT Routine 10/29/2017 6:15 Results for this PM CDT procedure are in the results section. PLATELET COUNT Routine 10/29/2017 6:15 Results for this PM CDT procedure are in the results section. MAGNESIUM Routine 10/29/2017 6:15 Results for this PM CDT procedure are in the results section. CBC W/PLT COUNT & AUTO Routine 10/29/2017 6:15 Results for this DIFFERENTIAL PM CDT procedure are in the results section. PT/APTT Routine 10/29/2017 6:15 Results for this PM CDT procedure are in the results section. HEMOGLOBIN A1C AP Routine 10/29/2017 6:15 Results for this PM CDT procedure are in the results section. TROPONIN I Routine 10/29/2017 6:15 Results for this PM CDT procedure are in the results section. ECHOCARDIOGRAM REPORT 10/29/2017 6:05 - SCAN PM CDT CAROTID DOPPLER Routine 10/29/2017 3:39 Results for this BILATERAL PM CDT procedure are in the results section. XR CHEST 1 VIEW Routine 10/29/2017 3:07 Results for this PORTABLE/BEDSIDE PM CDT procedure are in the results section. 2D ECHO W/ DOPPLER STAT 10/29/2017 2:21 Results for this (CW/PW/COLOR) PM CDT procedure are in the results section. after 03/30/2017 Results EKG-SCANNED (11/12/2017 1:41 PM CDT) Narrative Performed At VASCULAR DIAGRAM -SCAN (11/12/2017 1:41 PM CDT) Narrative Performed At RHYTHM STRIP - SCAN (11/12/2017 1:41 PM CDT) Narrative Performed At POC-Glucose meter (11/11/2017 3:51 PM CDT)Only the most recent of57 resultswithin the time period is included. POC-Glucose Meter 91Comment: TESTED AT 70 - 110 mg/dL [facility] [address] [facility] [address] Specimen Blood Performing Organization Address City/State/Zipcode Phone Number [facility] [address] [place] [address] [phone] CENTER XR chest 1 view portable / bedside (11/11/2017 9:07 AM CDT)Only the most recent of13 resultswithin the time period is included. Narrative Performed At FINAL REPORT [facility] Chest one view INDICATION: Pleural effusion COMPARISON: 11/10/2017 IMPRESSION: Right jugular line and median sternotomy changes are again noted. The cardiac silhouette is enlarged. There is mild pulmonary vascular congestion. Similar basilar opacities suggest atelectasis with possible minimal pleural effusions. Pneumonitis should be excluded clinically. No pneumothorax is seen. The right diaphragm remains mildly elevated. Signed: Yuri Chávez MD Report Verified Date/Time:11/11/2017 12:12:58 Reading Location: [facility] Radiology Reading Room Procedure Note Interface, External Ris In - 11/11/2017 12:15 PM CDT FINAL REPORT Chest one view INDICATION: Pleural effusion COMPARISON: 11/10/2017 IMPRESSION: Right jugular line and median sternotomy changes are again noted. The cardiac silhouette is enlarged. There is mild pulmonary vascular congestion. Similar basilar opacities suggest atelectasis with possible minimal pleural effusions. Pneumonitis should be excluded clinically. No pneumothorax is seen. The right diaphragm remains mildly elevated. Signed: Yuri Chávez MD Report Verified Date/Time: 11/11/2017 12:12:58 Reading Location: [facility] Reading Room Performing Organization Address City/[facility] Phone Number GE RIS CBC (Hemogram only) (11/11/2017 4:24 AM CDT)Only the most recent of9 resultswithin the time period is included. WBC 12.7 (H) 3.5 - 10.5 K/L [facility] RBC 3.02 (L) 4.63 - 6.08 M/L [facility] Hemoglobin 8.5 (L) 13.7 - 17.5 GM/DL [facility] Hematocrit 26.8 (L) 40.1 - 51.0 % [facility] MCV 88.7 79.0 - 92.2 fL [facility] MCH 28.1 25.7 - 32.2 pg [facility] MCHC 31.7 (L) 32.3 - 36.5 GM/DL [facility] RDW 14.7 (H) 11.6 - 14.4 % [facility] Platelets 463 (H) 150 - 450 K/CU MM [facility] MPV 10.0 9.4 - 12.4 fL [facility] nRBC 0 0 - 0 /100 WBC [facility] Specimen Blood - Arm, Right Performing Organization Address City/State/Zipcode Phone Number [facility] [address] [place] [phone] CENTER Magnesium (11/11/2017 4:24 AM CDT)Only the most recent of12 resultswithin the time period is included. Magnesium 2.0 1.6 - 2.6 mg/dL [facility] Specimen Blood - Arm, Right Performing Organization Address [facility] Hospitalcode Phone Number [address] [phone] [place] Basic Metabolic Panel (11/11/2017 4:24 AM CDT)Only the most recent of29 resultswithin the time period is included. Sodium 133 (L) 136 - 145 meq/L [facility] Potassium 4.4 3.5 - 5.1 meq/L [facility] Chloride 102 98 - 107 meq/L [facility] CO2 24 22 - 29 meq/L [facility] BUN 16 7 - 21 mg/dL [facility] Creatinine 1.09 0.57 - 1.25 mg/dL [facility] Glucose 102 70 - 105 mg/dL [facility] Calcium 8.9 8.4 - 10.2 mg/dL [facility] EGFR Comment: INSUFFICIENT CLINICAL mL/min/1.73 sq m [facility] DATA TO CALCULATE ESTIMATED [facility] GFR. Specimen Blood - Arm, Right Performing Organization Address [facility] Hospitalcode Phone Number [address] [address] [place] TRANSFUSION SERVICE REPORT - SCAN (11/09/2017 5:50 PM CDT)Only the most recent of2 resultswithin the time period is included. Narrative Performed At XR abdomen / KUB 1 view (11/09/2017 12:54 PM CDT) Narrative Performed At FINAL REPORT [employer], three images HISTORY: Abdominal pain COMPARISON: None IMPRESSION: Bowel gas pattern nonobstructive. Lung bases clear. Signed: Harika Garcia MD Report Verified Date/Time:11/09/2017 14:04:02 Reading Location: [facility] B1 C013Y CT Body Reading Room Procedure Note Interface, External Ris In - 11/09/2017 2:06 PM CDT FINAL REPORT Developing, three images HISTORY: Abdominal pain COMPARISON: None IMPRESSION: Bowel gas pattern nonobstructive. Lung bases clear. Signed: Harika Garcia MD Report Verified Date/Time: 11/09/2017 14:04:02 Reading Location: [facility] B1 C013Y CT Body Reading Room Performing Organization Address City/[facility] Phone Number GE RIS Blood gas, arterial (11/08/2017 5:02 PM CDT)Only the most recent of10 resultswithin the time period is included. pH, Arterial 7.40 7.35 - 7.45 [facility] pCO2, Arterial 37 35 - 45 mmHg [facility] pO2, Arterial 76 (L) 80 - 90 mmHg [facility] O2 Sat, Arterial 95.3 (L) 96.0 - 97.0 % [facility] HCO3, Arterial 22 21 - 29 mmol/L [facility] Base Excess, Arterial -2.5 (L) -2.0 - 3.0 mmol/L [facility] Patient Temperature 37.0 C [facility] FIO2 100.0 % [facility] Specimen Blood, Arterial Performing Organization Address City/State/Zipcode Phone Number [facility] [address] [place] [address] CENTER Potassium-Stat Lab (11/08/2017 4:35 PM CDT)Only the most recent of8 resultswithin the time period is included. Potassium 4.5 3.6 - 5.5 meq/L [facility] Specimen Blood, Arterial Performing Organization Address City/[facility] Phone Number [address] [address] [place] Sodium Na-Stat Lab (11/08/2017 4:35 PM CDT)Only the most recent of8 resultswithin the time period is included. Sodium 132 (L) 135 - 148 meq/L [facility] Specimen Blood, Arterial Performing Organization Address City/[facility] Phone Number [address] [address] [place] Glucose-Stat Lab (11/08/2017 4:35 PM CDT)Only the most recent of8 resultswithin the time period is included. Glucose 103 70 - 110 mg/dL [facility] Specimen Blood, Arterial Performing Organization Address [facility] Phone Number [address] [address] [place] HGB/HCT (H&H)-Stat Lab (11/08/2017 4:35 PM CDT)Only the most recent of8 resultswithin the time period is included. Hemoglobin 8.5 (L) 13.0 - 16.8 g/dL [facility] Hematocrit 25.0 (L) 40.0 - 50.0 % [facility] Specimen Blood, Arterial Performing Organization Address City/[facility] Phone Number [address] [address] [phone] [place] Calcium, Ionized (11/08/2017 4:35 PM CDT)Only the most recent of6 resultswithin the time period is included. Calcium, Ion 1.09 (L) 1.12 - 1.27 mmol/L [facility] pH, Blood 7.[address] [facility] Specimen Blood Performing Organization Address City/State/Zipcode Phone Number [facility] [address] [place] [address] CENTER ANESTHESIA RACHID (11/08/2017 3:53 PM CDT) Narrative Performed At Dom Xiao MD 11/08/20173:53 PM RACHID Date: 11/08/2017 3:00 PM Sex: Male Location: OR Requesting Physician: COLLIN CASTELLANOS Examiner: LAURA XIAO JASON Intubated Patient screened for esoph disease: Yes Insertion: easy Probe Type: multiplane Modalities: 2D, PWD and CWD Ventricles Cavity size Dimension Hypertrophy Thrombus Global FXN EF Right ventricle normal Left ventricle normal Effusion: moderate Pre Intervention Summary: Focused exam for known pericardial effusion: Pericardial effusion seen most along the inferior and lateral garcia of the LV Aorta: Not assessed AV: trileaflet morphology, normal appearing function, no AI LV: Normal chamber size, grossly normal systolic function, no RWMA, no thrombus MV: normal morphology, no mitral regurgitation, no mitral stenosis LA: not assessed PV: limited visualization RV: Normal sized chamber, grossly normal function, no thrombus TV: not assessed RA: not assessed All findings communicated to surgical team. Post Intervention Summary:S/p pericardial window with drainage of 350 cc fluid There is only trace residual pericardial fluid. The rest of the focused exam is unchanged. Procedure Note oDm Xiao MD - 11/08/2017 3:12 PM CDT RACHID Date: 11/08/2017 3:00 PM Sex: Male Location: OR Requesting Physician: COLLIN CASTELLANOS Examiner: DOM XIAO JASON Intubated Patient screened for esoph disease: Yes Insertion: easy Probe Type: multiplane Modalities: 2D, PWD and CWD Ventricles Cavity size Dimension Hypertrophy Thrombus Global FXN EF Right ventricle normal Left ventricle normal Effusion: moderate Pre Intervention Summary: Focused exam for known pericardial effusion: Pericardial effusion seen most along the inferior and lateral garcia of the LV Aorta: Not assessed AV: trileaflet morphology, normal appearing function, no AI LV: Normal chamber size, grossly normal systolic function, no RWMA, no thrombus MV: normal morphology, no mitral regurgitation, no mitral stenosis LA: not assessed PV: limited visualization RV: Normal sized chamber, grossly normal function, no thrombus TV: not assessed RA: not assessed All findings communicated to surgical team. Post Intervention Summary: S/p pericardial window with drainage of 350 cc fluid There is only trace residual pericardial fluid. The rest of the focused exam is unchanged. Prepare RBC (11/08/2017 3:35 PM CDT) CROSSMATCH COMPATIBLE SAFETRACE TX Unit ABO A Pos SAFETRACE TX UNIT NUMBER [id number] SAFETRACE TX Status RETURNED FROM ISSUE SAFETRACE TX Blood Bank Product RED BLOOD CELLS SAFETRACE TX PRODUCT CODE [id number] SAFETRACE TX CROSSMATCH COMPATIBLE SAFETRACE TX Unit ABO A Pos SAFETRACE TX UNIT NUMBER [id number] SAFETRACE TX Status RETURNED FROM ISSUE SAFETRACE TX Blood Bank Product RED BLOOD CELLS SAFETRACE TX PRODUCT CODE [id number] SAFETRACE TX Performing Organization Address City/[facility] Phone Number SAFETRACE TX Type and screen, automated (11/08/2017 2:09 AM CDT)Only the most recent of2 resultswithin the time period is included. ABO/RH AUTOMATED (BEAKER) A POSITIVE [facility] Ab Scrn NEGATIVE [facility] Specimen Blood Performing Organization Address City/[facility]/Zipcode Phone Number [facility] [address] [place], [place] [phone] PT/aPTT (11/08/2017 2:09 AM CDT)Only the most recent of3 resultswithin the time period is included. Protime 15.7 (H) 11.7 - 14.7 seconds [facility] INR 1.3 <=5.9 [facility] PTT 38.4 (H) 22.5 - 36.0 seconds [facility] Specimen Blood Narrative Performed At [facility] RECOMMENDED COUMADIN/WARFARIN INR THERAPY RANGES STANDARD DOSE: 2.0 - 3.0 Includes: PROPHYLAXIS for venous thrombosis, systemic embolization; TREATMENT for venous thrombosis and/or pulmonary embolus. HIGH RISK: Target INR is 2.5-3.5 for patients with mechanical heart valves. Performing Organization Address City/State/Zipcode Phone Number [facility] [address] [place] [address] [phone] CENTER ECHOCARDIOGRAM REPORT - SCAN (11/07/2017 6:50 PM CDT) Narrative Performed At Limited 2D Echocardiogram (11/07/2017 3:13 PM CDT) Ejection Fraction [facility] Narrative Performed At Transthoracic Echocardiography Report (TTE) [facility] Demographics Patient Name Katelin GONZALEZ of Study 11/07/2017 [id number] GenderMale Visit Number [id number] RaceHispanic [id number] m Number [id number] Number Date of Birth1955 Referring Physician Marina Calvo MD Age62 year(s) Project Coordinator Rn Lavelle Plunkett [facility] AnalysWillie Cummings,DeepaliRademario Marx [facility] Physician Procedure Type of Study TTE procedure:Contrast study, LIMITED 2D ECHOCARDIOGRAM (Routine) Indications:Pericardial effusion. Clinical History Coronary Artery Disease Diabetes Hyperlipidemia Hypertension Obesity 10/30/17 ACB x2 HGB 8.8 HCT 26.8 % Contrast Medium: Definity. Amount - 2 ml Height: 74 inches Weight: 135.17 kg (298 lbs) BSA: 2.57 m^2 BMI: 38.26 kg/m^2 HR: 92 bpm BP: 130/69 mmHg Summary A large circumferential pericardial effusion is present . Greatest pericardial end-diastolic size is approx. 2.2 cm posterior and lateral to the LV. Pericardial tamponade physiology is not evident based on available data . The effusion is worrisome based on it's size and increased HR, clinical correlation is recommended Signature Findings Technical Quality: Technically adequate exam. Left Ventricle Limited 2D exam and Doppler exam to address study in dication; pericardial effusion. The left ve ntricle is chamber size (by vol index) is normal (m nando - LVED vol - 34-74ml/m2). Mild concentric LV hy pertrophy. Septal motion is abnormal, likely re lated to prior cardiac surgery . The other se gments are hyperdynamic. Global LV systolic fu nction hyperdynamic . LVEF by Kim's method of di sk assessment is increased (>60%) . Left AtriumLA size is normal . LA is incompletely visualized, size based on linear me asurement. Right VentricleRV chamber size appears normal by limited views . Gl obal RV systolic function is depressed . Right Atrium RA cavity size is normal . Aortic Valve Mild AoV cusp thickening. Mitral Valve Normal MV structure. Tricuspid ValveTV is not well visualized. Pulmonic Valve PV is not visualized. AortaAortic root size (SInus of Valsalva diameter) is no rmal . PericardiumA large circumferential pericardial effusion is pr esent . Gr eatest pericardial end-diastolic size is approx. 2. 2 cm posterior and lateral to the LV. Pe ricardial tamponade physiology is not evident ba sed on available data . IVC/SVC/PA/PV/PleuralThe estimated RA pressure by IVC dynamics in determinate . Th e inferior vena cava is not visualized. Chambers/Structures Left Ventricle LVIDd: 3.89 cm LV Septum Diastolic: 1.49 cm LV PW Diastolic: 1.39 cm LVEDV Kim's:91.71 ml LVEDVI: 36 ml/m^2 LVOT Diameter: 2.22 cm Aorta Ao Root S of Jaci.: 3.17 cm Doppler/Quantitative Measurements LVOT LVOT Diameter: 2.22 cm LVOT Area: 3.87 cm^2 Procedure Note Interface, External Ris In - 11/07/2017 6:12 PM CDT Transthoracic Echocardiography Report (TTE) Demographics Patient Name ADRIANNA GONZALEZ Date of Study 11/07/2017 Gender Male Visit Number [id number] Race Room Number 1430 Number Date of 1955 Referring Physician Marina Calvo MD Age 62 year(s) Project Coordinator Rn Lavelle Dimitrios [facility] [employer] Radha Cummings, Interpreting Gabe Marx [facility] Physician Procedure Type of Study TTE procedure:Contrast study, LIMITED 2D ECHOCARDIOGRAM (Routine) Indications:Pericardial effusion. Clinical History Coronary Artery Disease Diabetes Hyperlipidemia Hypertension Obesity 10/30/17 ACB x2 HGB 8.8 HCT 26.8 % Contrast Medium: Definity. Amount - 2 ml Height: 74 inches Weight: 135.17 kg (298 lbs) BSA: 2.57 m^2 BMI: 38.26 kg/m^2 HR: 92 bpm BP: 130/69 mmHg Summary A large circumferential pericardial effusion is present . Greatest pericardial end-diastolic size is approx. 2.2 cm posterior and lateral to the LV. Pericardial tamponade physiology is not evident based on available data . The effusion is worrisome based on it's size and increased HR, clinical correlation is recommended Signature Findings Technical Quality: Technically adequate exam. Left Ventricle Limited 2D exam and Doppler exam to address study indication; pericardial effusion. The left ventricle is chamber size (by vol index) is normal (male - LVED vol - 34-74ml/m2). Mild concentric LV hypertrophy. Septal motion is abnormal, likely related to prior cardiac surgery . The other segments are hyperdynamic. Global LV systolic function hyperdynamic . LVEF by Kim's method of disk assessment is increased (>60%) . Left Atrium LA size is normal . LA is incompletely visualized, size based on linear measurement. Right Ventricle RV chamber size appears normal by limited views . Global RV systolic function is depressed . Right Atrium RA cavity size is normal . Aortic Valve Mild AoV cusp thickening. Mitral Valve Normal MV structure. Tricuspid Valve TV is not well visualized. Pulmonic Valve PV is not visualized. Aorta Aortic root size (SInus of Valsalva diameter) is normal . Pericardium A large circumferential pericardial effusion is present . Greatest pericardial end-diastolic size is approx. 2.2 cm posterior and lateral to the LV. Pericardial tamponade physiology is not evident based on available data . IVC/SVC/PA/PV/Pleural The estimated RA pressure by IVC dynamics indeterminate . The inferior vena cava is not visualized. Chambers/Structures Left Ventricle LVIDd: 3.89 cm LV Septum Diastolic: 1.49 cm LV PW Diastolic: 1.39 cm LVEDV Kim's:91.71 ml LVEDVI: 36 ml/m^2 LVOT Diameter: 2.22 cm Aorta Ao Root S of Jaci.: 3.17 cm Doppler/Quantitative Measurements LVOT LVOT Diameter: 2.22 cm LVOT Area: 3.87 cm^2 Performing Organization Address City/State/Zipcode Phone Number [facility] [employer] [facility] [facility] CBC with platelet count + automated diff (11/05/2017 3:39 AM CDT)Only the most recent of5 resultswithin the time period is included. WBC 12.5 (H) 3.5 - 10.5 K/L [facility] RBC 3.09 (L) 4.63 - 6.08 M/L [facility] Hemoglobin 8.8 (L) 13.7 - 17.5 GM/DL [facility] Hematocrit 26.8 (L) 40.1 - 51.0 % [facility] MCV 86.7 79.0 - 92.2 fL [facility] MCH 28.5 25.7 - 32.2 pg [facility] MCHC 32.8 32.3 - 36.5 GM/DL [facility] RDW 14.1 11.6 - 14.4 % [facility] Platelets 315 150 - 450 K/CU MM [facility] MPV 10.9 9.4 - 12.4 fL [facility] nRBC 1 (H) 0 - 0 /100 WBC [facility] % Neutros 62 % [facility] % Lymphs 20 % [facility] % Monos 12 % [facility] % Eos 3 % [facility] % Baso 1 % [facility] # Neutros 7.78 (H) 1.78 - 5.38 K/L [facility] # Lymphs 2.52 1.32 - 3.57 K/L [facility] # Monos 1.46 (H) 0.30 - 0.82 K/L [facility] # Eos 0.35 0.04 - 0.54 K/L [facility] # Baso 0.07 0.01 - 0.08 K/L [facility] Immature Granulocytes-Relative 3 (H) 0 - 1 % [facility] Specimen Blood Performing Organization Address City/State/Zipcode Phone Number [facility] [address] [place] [address] CENTER ECHOCARDIOGRAM REPORT - SCAN (11/03/2017 5:25 PM CDT) Narrative Performed At NM lung scan (V/Q) (11/03/2017 2:56 PM CDT) Narrative Performed At FINAL REPORT [employer] PROCEDURE: V/Q LUNG SCAN CPT CODE:79892 INDICATION:Dyspnea, cardiac origin suspected, respiratory insufficiency, 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 Rebreathing/washout images were obtained in the anterior and the posterior projections.4.3 mCi of Tc-99m MAA was then injected intravenously, and static perfusion images were obtained in multiple projections. FINDINGS: Ventilation: Initial tracer distribution shows a prominent cardiac silhouette and slightly decreased left lower lung zone activity in the posterior projection. Washout proceeds normally. Perfusion:Tracer distribution matches. IMPRESSION: Very low probability of acute pulmonary embolization. Signed: Devyn Del Cid MD Report Verified Date/Time:11/03/2017 15:16:20 Procedure Note Interface, External Ris In - 11/03/2017 3:18 PM CDT FINAL REPORT PROCEDURE: V/Q LUNG SCAN CPT CODE: 34593 INDICATION: Dyspnea, cardiac origin suspected, respiratory insufficiency, status post CABG October 31, 2007 PROTOCOL: 10.8 mCi of Xe-133 gas was administered by inhalation. Rebreathing/washout images were obtained in the anterior and the posterior projections. 4.3 mCi of Tc-99m MAA was then injected intravenously, and static perfusion images were obtained in multiple projections. FINDINGS: Ventilation: Initial tracer distribution shows a prominent cardiac silhouette and slightly decreased left lower lung zone activity in the posterior projection. Washout proceeds normally. Perfusion: Tracer distribution matches. IMPRESSION: Very low probability of acute pulmonary embolization. Signed: Devyn Del Cid MD Report Verified Date/Time: 11/03/2017 15:16:20 Performing Organization Address City/State/Zipcode Phone Number [facility] Venous doppler legs bilateral (11/03/2017 11:41 AM CDT) Ejection Fraction [facility] Impressions Performed At Right Impression [facility] 1. There is no deep venous obstruction in the common femoral, profunda femoral, femoral, popliteal, posterior tibial or peroneal veins where visualized. 2. There is no superficial venous obstruction in the great saphenous vein where visualized. Left Impression 1. There is no deep venous obstruction in the common femoral, profunda femoral, femoral, popliteal, posterior tibial or peroneal veins where visualized. 2. There is no superficial venous obstruction in the great saphenous vein where visualized. Conclusions Summary Venous duplex imaging and compression of the bilateral lower extremities were performed. The veins were technically difficult to visualize due to edema and patient body habitus. The bilateral venous systems were patent and compressible with no evidence of thrombus where visualized. The venous Doppler waveforms were phasic with respiration . Signature Velocities are measured in cm/s ; Diameters are measured in cm Narrative Performed At [facility] LAB - Lower Extremities DVT Study [facility] Demographics Patient Name ADRIANNA GONZALEZ Date of Study 11/03/2017 [id number] Age 62 Visit Number [id number] Male Accession Number [id number] of 1955 [facility] Room Number 7305 [facility] SonographerGregteresa Bañuelos. Yaniv Del Rio, S Physician , ELSY Mandel Procedure Type of Study: Veins: Lower Extremities DVT Study, VENOUS DOPPLER LEG, BILATERAL. Indications for Study:Possible DVT . Patient Status:STAT. Study Location:Vascular Lab. Technical Quality:Technically Difficult. Risk Factors History of Disease + + +--- + !Diagnosis !Date!Comments ! + + +--- + !History/Risk Factors: !!Obesity, DM, CAD! + + +--- + !History/Risk Factors: !11/03/2017!S/p CABG! + + +--- + Procedure Note Interface, External Ris In - 11/03/2017 2:34 PM CDT [facility] - Lower Extremities DVT Study Demographics Patient Name ADRIANNA GONZALEZ Date of Study 11/03/2017 Age 62 Visit Number [id number] Gender Male Accession Number [id number] Date of 1955 Referring [facility] Room Number [id number] Physician Brigido Project Coordinator Rn CIRO Tiwari Physician ELSY CASTELAN Procedure Type of Study: Veins: Lower Extremities DVT Study, VENOUS DOPPLER LEG, BILATERAL. Indications for Study:Possible DVT . Patient Status:STAT. Study Location:Vascular Lab. Technical Quality:Technically Difficult. Risk Factors History of Disease + + + + !Diagnosis !Date !Comments ! + + + + !History/Risk Factors: ! !Obesity, DM, CAD ! + + + + !History/Risk Factors: !11/03/2017!S/p CABG ! + + + + Impressions Right Impression 1. There is no deep venous obstruction in the common femoral, profunda femoral, femoral, popliteal, posterior tibial or peroneal veins where visualized. 2. There is no superficial venous obstruction in the great saphenous vein where visualized. Left Impression 1. There is no deep venous obstruction in the common femoral, profunda femoral, femoral, popliteal, posterior tibial or peroneal veins where visualized. 2. There is no superficial venous obstruction in the great saphenous vein where visualized. Conclusions Summary Venous duplex imaging and compression of the bilateral lower extremities were performed. The veins were technically difficult to visualize due to edema and patient body habitus. The bilateral venous systems were patent and compressible with no evidence of thrombus where visualized. The venous Doppler waveforms were phasic with respiration . Signature Velocities are measured in cm/s ; Diameters are measured in cm Performing Organization Address City/State/Zipcode Phone Number [facility] Limited 2D Echocardiogram (11/03/2017 10:43 AM CDT) Ejection Fraction [facility] Narrative Performed At Transthoracic Echocardiography Report (TTE) [facility] Demographics Patient Name ADRIANNA GONZALEZ Date of Study 11/03/2017 [id number] GenderMale Visit Number [id number] Room Number 7305 Number Date of Birth1955Referring Physician Yaniv Jones MD Age62 year(s)Project Coordinator Rn Phoebe Regalado [facility] AnalystIzoliliana Barkley MD [place] Physician Procedure Type of Study TTE procedure:LIMITED 2D ECHOCARDIOGRAM ([facility]) Indications:Pericardial effusion. Clinical History CAB x2 (10/30/17), Obesity, Hyperlipidemia, Hypertension, Diabetes mellitus II, Coronary artery disease, Tachycardia, Pulmonary hypertension, Small pericardial effusion HGB 8.5 HCT 26.2 % Contrast Medium: Definity. Amount - 2 ml Height: 74 inches Weight: 135.62 kg (299 lbs) BSA: 2.58 m^2 BMI: 38.39 kg/m^2 HR: 98 bpm BP: 146/63 mmHg Summary The left ventricle is chamber size (by PSLAX dimension) is normal (male - LVIDd 4.2-5.8cm) . Borderline concentric LV hypertrophy. All of the LV segments contract normally . Global LV systolic function normal . Estimated LVEF by qualitative assessment is normal (55-60%) . A moderate pericardial effusion is present posteriorly. Pericardial tamponade physiology is not evident based on available data . Signature Findings Technical Quality: Limited visualization Left Ventricle Limited 2D exam (no Doppler) to address study in dication. Th e left ventricle is chamber size (by PSLAX di mension) is normal (male - LVIDd 4.2-5.8cm) . Dane rderline concentric LV hypertrophy. Al l of the LV segments contract normally . Gl obal LV systolic function normal . Es timated LVEF by qualitative assessment is normal (5 5-60%) . LV endocardium is adequately visualized with IV ul trasound enhancing agent. Left AtriumLA size is normal (16-34 ml/m2) . Right VentricleRV is partially visualized. Right Atrium The RA is not well visualized. Aortic Valve Mild AoV cusp thickening. Mitral Valve Mild MV leaflet thickening. Tricuspid ValveTV is not well visualized. Pulmonic Valve PV is not well visualized. AortaAortic root size (SInus of Valsalva diameter) is no rmal . PericardiumA moderate pericardial effusion is present po steriorly. Pe ricardial tamponade physiology is not evident ba sed on available data . IVC/SVC/PA/PV/PleuralThe estimated RA pressure by IVC dynamics in determinate . Th e inferior vena cava is not visualized. Chambers/Structures Left Atrium LA Volume: 41.67 ml LA Area: 18.03 cm^2 LA Vol. Index: 16 ml/m^2 Left Ventricle LVIDd: 4.26 cm LV Septum Diastolic: 1.13 cm LV PW Diastolic: 1.13 cm Aorta Ao Root S of Jaci.: 2.17 cm Procedure Note Interface, External Ris In - 11/03/2017 4:41 PM CDT Transthoracic Echocardiography Report (TTE) Demographics Patient Name ADRIANNA GONZALEZ Date of Study 11/03/2017 Gender Male Visit Number [id number] Race Room Number 7305 Number Date of 1955 Referring Physician Yaniv Jones MD Age 62 year(s) Project Coordinator Rn Phoebe Regalado, [facility] [employer] Chitra Jaramillo Interpreting Piotr Barkley MD [place] Physician Procedure Type of Study TTE procedure:LIMITED 2D ECHOCARDIOGRAM ([facility]) Indications:Pericardial effusion. Clinical History CAB x2 (10/30/17), Obesity, Hyperlipidemia, Hypertension, Diabetes mellitus II, Coronary artery disease, Tachycardia, Pulmonary hypertension, Small pericardial effusion HGB 8.5 HCT 26.2 % Contrast Medium: Definity. Amount - 2 ml Height: 74 inches Weight: 135.62 kg (299 lbs) BSA: 2.58 m^2 BMI: 38.39 kg/m^2 HR: 98 bpm BP: 146/63 mmHg Summary The left ventricle is chamber size (by PSLAX dimension) is normal (male - LVIDd 4.2-5.8cm) . Borderline concentric LV hypertrophy. All of the LV segments contract normally . Global LV systolic function normal . Estimated LVEF by qualitative assessment is normal (55-60%) . A moderate pericardial effusion is present posteriorly. Pericardial tamponade physiology is not evident based on available data . Signature Findings Technical Quality: Limited visualization Left Ventricle Limited 2D exam (no Doppler) to address study indication. The left ventricle is chamber size (by PSLAX dimension) is normal (male - LVIDd 4.2-5.8cm) . Borderline concentric LV hypertrophy. All of the LV segments contract normally . Global LV systolic function normal . Estimated LVEF by qualitative assessment is normal (55-60%) . LV endocardium is adequately visualized with IV ultrasound enhancing agent. Left Atrium LA size is normal (16-34 ml/m2) . Right Ventricle RV is partially visualized. Right Atrium The RA is not well visualized. Aortic Valve Mild AoV cusp thickening. Mitral Valve Mild MV leaflet thickening. Tricuspid Valve TV is not well visualized. Pulmonic Valve PV is not well visualized. Aorta Aortic root size (SInus of Valsalva diameter) is normal . Pericardium A moderate pericardial effusion is present posteriorly. Pericardial tamponade physiology is not evident based on available data . IVC/SVC/PA/PV/Pleural The estimated RA pressure by IVC dynamics indeterminate . The inferior vena cava is not visualized. Chambers/Structures Left Atrium LA Volume: 41.67 ml LA Area: 18.03 cm^2 LA Vol. Index: 16 ml/m^2 Left Ventricle LVIDd: 4.26 cm LV Septum Diastolic: 1.13 cm LV PW Diastolic: 1.13 cm Aorta Ao Root S of Jaci.: 2.17 cm Performing Organization Address [facility] Phone Number [facility] Osmolality, serum (11/03/2017 5:54 AM CDT) Osmolality Serum 270 (L) 275 - 295 mOsm/kg [facility] Specimen Blood Performing Organization Address [facility] Phone Number [address] [address] [phone] CENTER Sodium, random urine (11/03/2017 5:18 AM CDT)Only the most recent of3 resultswithin the time period is included. Sodium Urine <20 meq/L [facility] Specimen Urine Narrative Performed At [facility] Reference Range: No Normals Performing Organization Address [facility] Phone Number [address] [address] [phone] [place] Osmolality, urine (11/03/2017 5:18 AM CDT)Only the most recent of2 resultswithin the time period is included. Osmolality, Ur 290 40 - 1,400 mOsm/kg [facility] Specimen Urine Performing Organization Address City/State/Zipcode Phone Number [facility] [address] [place] [address] CENTER Manual Differential (11/03/2017 3:56 AM CDT)Only the most recent of2 resultswithin the time period is included. % Neutros 69 % [facility] % Lymphs 15 % [facility] % Monos 7 % [facility] % Bands 9 0 - 10 % [facility] # Neutros 11.32 (H) 1.78 - 5.38 K/ul [facility] # Lymphs 2.46 1.32 - 3.57 K/ul [facility] # Monos 1.15 (H) 0.30 - 0.82 K/uL [facility] # Bands 1.48 (H) 0.00 - 0.80 K/uL [facility] Total Counted 100 [facility] nRBC (manual) 1 (H) 0 - 0 /100 WBC [facility] WBC Morphology Normal [facility] Platelet Morphology Normal [facility] Polychromasia 1+ few [facility] Anisocytosis 1+ few [facility] Artifact Present [facility] Platelet Conc Adequate [facility] Specimen Blood Narrative Performed At Received comment: [facility] User comments: Slide comments: Performing Organization Address City/State/Zipcode Phone Number [facility] [address] [place] [address] [phone] CENTER TSH/Free T4 If Indicated (11/03/2017 3:56 AM CDT) TSH 0.82 0.35 - 4.94 uIU/mL [facility] Specimen Blood Performing Organization Address City/State/Zipcode Phone Number [facility] [address] [place] [address] CENTER ECHOCARDIOGRAM REPORT - SCAN (11/02/2017 6:20 PM CDT) Narrative Performed At CT brain without IV contrast (11/02/2017 4:59 PM CDT) Narrative Performed At FINAL REPORT Bundle CT head without contrast INDICATION: Encephalopathy, acute hyponatremia. TECHNIQUE: Axial noncontrast CT images through the head were obtained. This exam was performed according to our departmental dose optimization program which includes automated exposure control, adjustment of the mA and/or kV according to patient size and/or use of iterative reconstruction technique. COMPARISON: None available FINDINGS: There is no acute intracranial hemorrhage or mass effect. There are no specific CT findings of acute infarct. Please note that CT is insensitive for early or small infarcts. Generalized volume loss, vascular calcifications, and incidental basal ganglia calcifications are noted. There is no hydrocephalus or midline shift. The visualized sinuses, mastoid air cells, and orbits are unremarkable. There are partially imaged dental implants. The calvarium is intact. IMPRESSION: No acute intracranial hemorrhage or mass effect. Chronic and involutional findings as discussed above. If there is persistent concern for acute abnormality, MRI is advised. Signed: Yuri Chávez MD Report Verified Date/Time:11/02/2017 17:07:14 Reading Location: [address] Neuro Reading Room Procedure Note Interface, External Ris In - 11/02/2017 5:09 PM CDT FINAL REPORT CT head without contrast INDICATION: Encephalopathy, acute hyponatremia. TECHNIQUE: Axial noncontrast CT images through the head were obtained. This exam was performed according to our departmental dose optimization program which includes automated exposure control, adjustment of the mA and/or kV according to patient size and/or use of iterative reconstruction technique. COMPARISON: None available FINDINGS: There is no acute intracranial hemorrhage or mass effect. There are no specific CT findings of acute infarct. Please note that CT is insensitive for early or small infarcts. Generalized volume loss, vascular calcifications, and incidental basal ganglia calcifications are noted. There is no hydrocephalus or midline shift. The visualized sinuses, mastoid air cells, and orbits are unremarkable. There are partially imaged dental implants. The calvarium is intact. IMPRESSION: No acute intracranial hemorrhage or mass effect. Chronic and involutional findings as discussed above. If there is persistent concern for acute abnormality, MRI is advised. Signed: Yuri Chávez MD Report Verified Date/Time: 11/02/2017 17:07:14 Reading Location: [facility] [id number] Neuro Reading Room Performing Organization Address City/State/Zipcode Phone Number Bundle 2D Echo W/Doppler(CW/PW/Color) (11/02/2017 11:28 AM CDT) Ejection Fraction [facility] Narrative Performed At Transthoracic Echocardiography Report (TTE) [facility] Demographics Patient NameMENDOZA, Date of Study11/02/2017 [id number] Male Visit [id number] Race [id number] Number Date of 1955 Referring PhysicianCaleb Caba Age 62 year(s) SonographerMantolin Coffman [facility] Interpreting Piotr Barkley MD Physician Procedure Type of Study TTE procedure:2DECHO W DOPPLER(CW/PW/COLOR) (STAT) Indications:Suspected Pericardial conditions. Clinical History CAD;DM;HTN;HLD;OBESITY;ACBX2 10/30/17 HGB 9.5 HCT 29.3 % Contrast Medium: Definity. Height: 74 inches Weight: 132.45 kg (292 lbs) BSA: 2.55 m^2 BMI: 37.49 kg/m^2 HR: 100 bpm BP: 116/75 mmHg Summary TECHNICALLY DIFFICULT STUDY. The LV endocardium is partially visualized by limited parasternal and limited apical views. LV endocardium is adequately visualized with IV ultrasound enhancing agent. Parasternal long axis measurements not possible. Difficult to assess segmental wall motion; overall LV systolic function appears normal based on available views. A moderate ( 16mm) pericardial effusion is present posteriorly. Signature Findings LeftThe LV endocardium is partially visualized by limited Ventricle parasternal and limited apical views. LV endocardium is adequately visualized with IV ultrasound enhancing agent. Parasternal long axis measurements not possible. Difficult to assess segmental wall motion; overall LV systolic function appears normal based on available views. Left Atrium LA size is normal (16-34 ml/m2) . Right RV is partially visualized. Ventricle RV chamber size is normal . Right AtriumRA size is normal. Aortic ValveThe aortic valve is not well visualized. Mitral ValveMV is not well visualized. Tricuspid TV is not well visualized. Valve Unable to estimate peak systolic PA pressure; inadequate TR velocity signal. PulmonicPV is not well visualized. Valve Aorta Aortic root size (SInus of Valsalva diameter) is indeterminate (not well seen) . Pericardium A moderate ( 16mm) pericardial effusion is present posteriorly. Chambers/Structures Left Atrium LA Volume: 40.36 ml LA Area: 16.37 cm^2 LA Vol. Index: 16 ml/m^2 Doppler/Quantitative Measurements Mitral Valve MV Peak E-Wave: 0.6 m/s MV Peak A-Wave: 0.56 m/s E/A Ratio: 1.07 Peak Gradient: 1.44 mmHg Deceleration Time: 174.4 msec MV Azeem. Peak: LVOT Peak Velocity: 1 m/s Peak Gradient: 3.96 mmHg Mean Velocity: 0.7 m/s Mean Gradient: 2.22 mmHg LVOT VTI: 13.76 cm Procedure Note Interface, External Ris In - 11/02/2017 5:31 PM CDT Transthoracic Echocardiography Report (TTE) Demographics Patient Name SARINA, Date of Study [facility]/02/2017 [id number] Male Visit Number [id number] Race Room Number 7305 Number Date of 1955 Referring Physician Caleb Caba Age 62 year(s) Project Coordinator Rn Meera Coffman [facility] Interpreting Piotr Barkley MD Physician Procedure Type of Study TTE procedure:2DECHO W DOPPLER(CW/PW/COLOR) (STAT) Indications:Suspected Pericardial conditions. Clinical History CAD;DM;HTN;HLD;OBESITY;ACBX2 10/30/17 HGB 9.5 HCT 29.3 % Contrast Medium: Definity. Height: 74 inches Weight: 132.45 kg (292 lbs) BSA: 2.55 m^2 BMI: 37.49 kg/m^2 HR: 100 bpm BP: 116/75 mmHg Summary TECHNICALLY DIFFICULT STUDY. The LV endocardium is partially visualized by limited parasternal and limited apical views. LV endocardium is adequately visualized with IV ultrasound enhancing agent. Parasternal long axis measurements not possible. Difficult to assess segmental wall motion; overall LV systolic function appears normal based on available views. A moderate ( 16mm) pericardial effusion is present posteriorly. Signature Findings Left The LV endocardium is partially visualized by limited Ventricle parasternal and limited apical views. LV endocardium is adequately visualized with IV ultrasound enhancing agent. Parasternal long axis measurements not possible. Difficult to assess segmental wall motion; overall LV systolic function appears normal based on available views. Left Atrium LA size is normal (16-34 ml/m2) . Right RV is partially visualized. Ventricle RV chamber size is normal . Right Atrium RA size is normal. Aortic Valve The aortic valve is not well visualized. Mitral Valve MV is not well visualized. Tricuspid TV is not well visualized. Valve Unable to estimate peak systolic PA pressure; inadequate TR velocity signal. Pulmonic PV is not well visualized. Valve Aorta Aortic root size (SInus of Valsalva diameter) is indeterminate (not well seen) . Pericardium A moderate ( 16mm) pericardial effusion is present posteriorly. Chambers/Structures Left Atrium LA Volume: 40.36 ml LA Area: 16.37 cm^2 LA Vol. Index: 16 ml/m^2 Doppler/Quantitative Measurements Mitral Valve MV Peak E-Wave: 0.6 m/s MV Peak A-Wave: 0.56 m/s E/A Ratio: 1.07 Peak Gradient: 1.44 mmHg Deceleration Time: 174.4 msec MV Azeem. Peak: LVOT Peak Velocity: 1 m/s Peak Gradient: 3.96 mmHg Mean Velocity: 0.7 m/s Mean Gradient: 2.22 mmHg LVOT VTI: 13.76 cm Performing Organization Address [facility] Phone Number [facility] Cortisol (11/02/2017 11:09 AM CDT) Cortisol, Total 18.6 3.7 - 19.4 ug/dL [facility] Specimen Blood - Arm, Left Performing Organization Address [facility] Phone Number [address] [address] [place] Uric acid (11/02/2017 11:09 AM CDT) Uric Acid 8.2 (H) 2.6 - 7.2 mg/dL [facility] Specimen Blood - Arm, Left Performing Organization Address [facility] Phone Number [address] [address] [phone] [place] Urea Nitrogen, random urine (11/02/2017 10:58 AM CDT) Urea Nitrogen, Ur 446 mg/dL [facility] Specimen Urine Narrative Performed At [facility] Reference Range: No Normals Performing Organization Address [facility]/Zipcode Phone Number [address] [address] [place] Chloride, random urine (11/02/2017 10:58 AM CDT) ChlorideUr 23 meq/L [facility] Specimen Urine - Urine, [place] Narrative Performed At [facility] Reference Range: No Normals Performing Organization Address [facility] Phone Number [address] [address] [place] Urinalysis w/Microscopic (11/02/2017 10:58 AM CDT) Color, UA Light Yellow [facility] Clarity, UA Clear [facility] Specific [place], UA 1.007 1.001 - 1.035 [facility] pH, UA 6.0 5.0 - 8.0 [facility] Protein, UA Negative Negative [facility] Glucose, UA Negative Negative [facility] Ketones, UA Negative Negative [facility] Bilirubin, UA Negative Negative [facility] Blood, UA Negative Negative [facility] Nitrite, UA Negative Negative [facility] Leukocytes, UA Negative Negative [facility] Urobilinogen, UA 0.2 0.2 - 1.0 mg/dL [facility] RBC, UA <1 /HPF [facility] WBC, UA 2 /HPF [facility] Bacteria, UA Rare [facility] Squam Epithel, UA <1 /HPF [facility] Specimen Source [facility] Specimen Urine Performing Organization Address [facility]/Zipcode Phone Number [address] [address] [phone] CENTER B-type Natriuretic Factor (BNP) (11/02/2017 6:42 AM CDT) BNP 154 (H) 0 - 100 pg/mL [facility] Specimen Blood - Arm, Left Performing Organization Address [facility] Phone Number [address] [address] [place] EKG 12 lead (11/01/2017 6:24 AM CDT)Only the most recent of4 resultswithin the time period is included. Narrative Performed At Ventricular Rate 93 BPM GE MUSE Atrial Rate 93 BPM P-R Interval 150 ms QRS Duration 100 ms Q-T Interval 372 ms QTC Calculation(Bazett) 462 ms P Lodi 14 degrees R Lodi 32 degrees T Lodi 39 degrees Normal sinus rhythm Nonspecific ST abnormality Abnormal ECG When compared with ECG of 30-OCT-2017 21:56, Significant changes have occurred Confirmed by MD BARKLEY JOSEPH P ([id number]) on 11/02/2017 7:23:08 AM Procedure Note Interface, External Ris In - 11/02/2017 7:23 AM CDT Ventricular Rate 93 BPM Atrial Rate 93 BPM P-R Interval 150 ms QRS Duration 100 ms Q-T Interval 372 ms QTC Calculation(Bazett) 462 ms P Lodi 14 degrees R Lodi 32 degrees T Lodi 39 degrees Normal sinus rhythm Nonspecific ST abnormality Abnormal ECG When compared with ECG of 30-OCT-2017 21:56, Significant changes have occurred Confirmed by MD BARKLEY JOSEPH P ([id number]) on 11/02/2017 7:23:08 AM Performing Organization Address City/[facility] Phone Number GE MUSE Phosphorus (11/01/2017 6:17 AM CDT)Only the most recent of3 resultswithin the time period is included. Phosphorus 2.5 2.3 - 4.7 mg/dL [facility] Specimen Blood - Arm, Left Performing Organization Address [facility] Phone Number [address] [phone] [place] Lactic acid, arterial, whole blood (10/30/2017 7:56 PM CDT)Only the most recent of2 resultswithin the time period is included. Lactate, Art 2.1 0.5 - 2.2 mmol/L [facility] Specimen Blood, Arterial - Line, Arterial Narrative Performed At [facility] Effective 07/06/2015: Units/Reference Range Change New: 0.5-2.2 mmol/LPrevious: 5-20 mg/dL Performing Organization Address [facility] Phone Number [address] [address] [place] Potassium (10/30/2017 7:56 PM CDT)Only the most recent of2 resultswithin the time period is included. Potassium 4.1 3.5 - 5.1 meq/L [facility] Specimen Blood - Line, Arterial Performing Organization Address [facility] Phone Number [address] [address] [place] Hemoglobin-Stat Lab (10/30/2017 2:45 PM CDT) Hemoglobin 12.1 (L) 13.0 - 16.8 g/dL [facility] Specimen Blood, Arterial - Line, Arterial Performing Organization Address [facility] Phone Number [address] [address] [place] Oxygen saturation, measured (10/30/2017 2:45 PM CDT) O2 Saturation (Measured) 77.1 % [facility] Specimen Blood - Line, Arterial Performing Organization Address [facility] Phone Number [address] [address] [place] Fibrinogen (10/30/2017 2:45 PM CDT) Fibrinogen 370 225 - 434 mg/dl [facility] Specimen Blood - Line, Arterial Performing Organization Address [facility] Phone Number [address] [address] [place] Sodium (10/30/2017 2:45 PM CDT) Sodium 139 136 - 145 meq/L [facility] Specimen Blood - Line, Arterial Performing Organization Address [facility] Phone Number [address] [address] [phone] [place] Glucose (10/30/2017 2:45 PM CDT) Glucose 211 (H) 70 - 105 mg/dL [facility] Specimen Blood - Line, Arterial Performing Organization Address [facility] Phone Number [address] [address] [place] POC ACTIVATED CLOTTING TIME (10/30/2017 1:12 PM CDT)Only the most recent of4 resultswithin the time period is included. Activated Clotting Time 109Comment: TESTED AT sec [place] [id number] Specimen Blood Performing Organization Address [facility] Phone Number [address] [address] [phone] [place] Blood gas, venous (10/30/2017 12:09 PM CDT) pH, Azeem 7.36 7.32 - 7.42 [facility] pCO2, Azeem 40 (L) 41 - 51 mmHg [facility] pO2, Azeem 29 25 - 40 mmHg [facility] O2 Sat, Azeem 83.1 (H) 40.0 - 70.0 % [facility] HCO3, Azeem 24 21 - 29 mmol/L [facility] Base Excess, Azeem -3.3 (L) -2.0 - 3.0 mmol/L [facility] Patient Temperature 27.7 C [facility] FIO2 80.0 % [facility] Specimen Blood Performing Organization Address [facility]/Zipcode Phone Number [address] [address] [place] aPTT (10/30/2017 1:37 AM CDT)Only the most recent of2 resultswithin the time period is included. PTT 30.3 22.5 - 36.0 seconds [facility] Specimen Blood - Arm, Left Performing Organization Address [facility] Phone Number [address] [address] [phone] [place] Hemoglobin A1c (10/30/2017 1:37 AM CDT)Only the most recent of2 resultswithin the time period is included. Hemoglobin A1C 7.0 (H) 4.3 - 6.1 % [facility] Specimen Blood - Arm, Left Performing Organization Address [facility] Phone Number [address] [address] [phone] [place] Lipid panel (10/30/2017 1:37 AM CDT) Triglycerides 264 mg/dL [facility] Cholesterol 176 mg/dL [facility] HDL 33 mg/dL [facility] LDL Calculated 90 mg/dL [facility] Specimen Blood - Arm, Left Narrative Performed At [facility] Triglyceride Reference Range: Low Risk <150 Knkveeosed609-425 High Risk 200-499 Very High Risk>=500 Cholesterol Reference Range: Low Risk <200 Loiyvquywz715-131 High Risk>240 HDL Cholesterol Reference Range: Low Risk >=60 High Risk <40 LDL Cholesterol Reference Range: Optimal<100 Near Cxdvyew136-270 Kyymulxiwe461-721 Ciws593-439 Very High >=190 Performing Organization Address [facility] Phone Number [address] [address] [phone] [place] Troponin I (10/29/2017 6:15 PM CDT) Troponin I 0.02 0.00 - 0.03 ng/mL [facility] Specimen Blood Narrative Performed At [facility] Troponin I (TnI) levels must be interpreted in the context of the presenting symptoms and the clinical findings. Elevated TnI levels indicate myocardial damage, but are not specific for ischemic heart disease. Elevated TnI levels are seen in patients with other cardiac conditions (including myocarditis and congestive heart failure), and slight TnI elevations occur in patients with other conditions, including sepsis, renal failure, acidosis, acute neurological disease, and persistent tachyarrhythmia. Performing Organization Address [facility] Phone Number [address] [address] [place] Prothrombin time/INR (10/29/2017 6:15 PM CDT) Protime 15.0 (H) 11.7 - 14.7 seconds [facility] INR 1.2 <=5.9 [facility] Specimen Blood Narrative Performed At [facility] RECOMMENDED COUMADIN/WARFARIN INR THERAPY RANGES STANDARD DOSE: 2.0 - 3.0 Includes: PROPHYLAXIS for venous thrombosis, systemic embolization; TREATMENT for venous thrombosis and/or pulmonary embolus. HIGH RISK: Target INR is 2.5-3.5 for patients with mechanical heart valves. Performing Organization Address [facility] Phone Number [address] [address] [place] Platelet count (10/29/2017 6:15 PM CDT) Platelets 185 150 - 450 K/CU MM [facility] Specimen Blood Performing Organization Address [facility] Phone Number [address] [address] [phone] CENTER TSH (10/29/2017 6:15 PM CDT) TSH 0.53 0.35 - 4.94 uIU/mL [facility] Specimen Blood Performing Organization Address [facility] Phone Number [address] [place] [address] [place] Comprehensive metabolic panel (10/29/2017 6:15 PM CDT) Protein, Total 6.7 6.0 - 8.3 gm/dL [facility] Albumin 3.8 3.5 - 5.0 g/dL [facility] Alkaline Phosphatase 64 40 - 150 U/L [facility] Total Bilirubin 0.3 0.2 - 1.2 mg/dL [facility] Sodium 137 136 - 145 meq/L [facility] Potassium 4.0 3.5 - 5.1 meq/L [facility] Chloride 106 98 - 107 meq/L [facility] CO2 20 (L) 22 - 29 meq/L [facility] BUN 18 7 - 21 mg/dL [facility] Creatinine 1.26 (H) 0.57 - 1.25 mg/dL [facility] Glucose 324 (H) 70 - 105 mg/dL [facility] Calcium 9.3 8.4 - 10.2 mg/dL [facility] AST 21 5 - 34 U/L [facility] ALT 36 6 - 55 U/L [facility] EGFR Comment: INSUFFICIENT mL/min/1.73 sq m [facility] CLINICAL DATA TO [facility] CALCULATE ESTIMATED GFR. Specimen Blood Performing Organization Address City/State/Zipcode Phone Number [address] [address] [place] ECHOCARDIOGRAM REPORT - SCAN (10/29/2017 6:05 PM CDT) Narrative Performed At Carotid doppler bilateral (10/29/2017 3:39 PM CDT) Ejection Fraction [facility] Impressions Performed At Right Impression [facility] 1. There is <50% diameter reduction (approximately 31% by 2-D measurement) in the internal carotid artery with a peak velocity of 139 cm/sec and heterogeneous plaque. 2. There is >50% stenosis in the external carotid artery with a velocity of 220 cm/sec. 3. There is non-occluding plaque in the common carotid artery. 4. The vertebral artery flow is antegrade and normal. 5. The subclavian artery is within normal limits where visualized. Left Impression 1. There is <50% diameter reduction (approximately 29% by 2-D measurement) in the internal carotid artery with a peak velocity of 130 cm/sec and heterogeneous plaque. 2. There is non-occluding plaque in the external carotid artery. 3. There is non-occluding plaque in the common carotid artery. 4. The vertebral artery flow is antegrade and normal. 5. The subclavian artery is within normal limits where visualized. Conclusions Summary Carotid duplex scanning and color flow imaging were performed bilaterally. The arteries were adequately visualized. The bilateral internal carotid arteries had <50% hemodynamically insignificant stenosis (approximately 31% by 2-D measurement on the right, approximately 29% by 2-D measurement on the left) with heterogeneous plaque. There was >50% stenosis of the right external carotid artery. The vertebral artery flow was antegrade and normal bilaterally. Signature Velocities are measured in cm/s ; Diameters are measured in cm Carotid Right Measurements + +----+----+-----+ +---- + + !Location !PSV !EDV !Angle!%Stenosis 2D!%Stenosis Doppler!Tortuosity ! + +----+----+-----+ +---- + + !Prox CCA !92!15.2!60 !! ! ! + +----+----+-----+ +---- + + !Dist CCA !70.4!15.8!60 !! ! ! + +----+----+-----+ +---- + + !Prox ICA !62.7!18.8!60 !! ! ! + +----+----+-----+ +---- + + !Dist ICA !139 !34.6!60 !! ! ! + +----+----+-----+ +---- + + !Prox ECA !220 !19.6!60 !! ! ! + +----+----+-----+ +---- + + !Vertebral!66!15.7!60 !! ! ! + +----+----+-----+ +---- + + !Prox Subclavian!121 !0 !60 !! ! ! + +----+----+-----+ +---- + + - There is antegrade vertebral flow noted on the right side. - Additional Measurements:ICAPSV/CCAPSV 1.97.ICAEDV/CCAEDV 2.28. Carotid Left Measurements + +----+----+-----+ +---- + + !Location !PSV !EDV !Angle!%Stenosis 2D!%Stenosis Doppler!Tortuosity ! + +----+----+-----+ +---- + + !Prox CCA !127 !21.2!60 !! ! ! + +----+----+-----+ +---- + + !Dist CCA !104 !29.1!60 !! ! ! + +----+----+-----+ +---- + + !Prox ICA !79.4!22!60 !! ! ! + +----+----+-----+ +---- + + !Dist ICA !130 !37.7!60 !! ! ! + +----+----+-----+ +---- + + !Prox ECA !131 !20.4!60 !! ! ! + +----+----+-----+ +---- + + !Vertebral!66.8!13!60 !! ! ! + +----+----+-----+ +---- + + !Prox Subclavian!130 !0 !60 !! ! ! + +----+----+-----+ +---- + + - There is antegrade vertebral flow noted on the left side. - Additional Measurements:ICAPSV/CCAPSV 1.25.ICAEDV/CCAEDV 1.78. Narrative Performed At [facility] - Carotid Duplex Study [facility] Demographics Patient Name ADRIANNA GONZALEZ Date of Study10/29/2017 [id number] Visit Number [id number] Male Accession Number [id number] [id number] Birth1955 [facility] Room [id number] Physician SonographViviana Burkettterpreting James Del Rio MD, RVT PhysicianRPVI Procedure Type of Study: Cerebral: Carotid, CAROTID DOPPLER, BILATERAL. Indications for Study:Pre-op evaluation. Patient Status:Routine. Study Location:Vascular Lab. Technical Quality:Adequate visualization. Risk Factors History of Disease + +----+------ + !Diagnosis !Date!Comments ! + +----+------ + !History/Risk Factors:!! Obesity, DM, CAD ! + +----+------ + Procedure Note Interface, External Ris In - 10/29/2017 4:04 PM CDT [facility] - Carotid Duplex Study Demographics Patient Name ADRIANNA GONZALEZ Date of Study 10/29/2017 Age 62 Visit Number [id number] Gender Male Accession Number [id number] Date of 1955 Referring [place]na De La Cruz Room Number [id number] Physician Project Coordinator Rn Raiza Philip Interpreting James Del Rio MD, RVT Physician RPJARON Procedure Type of Study: Cerebral: Carotid, CAROTID DOPPLER, BILATERAL. Indications for Study:Pre-op evaluation. Patient Status:Routine. Study Location:Vascular Lab. Technical Quality:Adequate visualization. Risk Factors History of Disease + +----+ + !Diagnosis !Date!Comments ! + +----+ + !History/Risk Factors: ! !Obesity, DM, CAD ! + +----+ + Impressions Right Impression 1. There is <50% diameter reduction (approximately 31% by 2-D measurement) in the internal carotid artery with a peak velocity of 139 cm/sec and heterogeneous plaque. 2. There is >50% stenosis in the external carotid artery with a velocity of 220 cm/sec. 3. There is non-occluding plaque in the common carotid artery. 4. The vertebral artery flow is antegrade and normal. 5. The subclavian artery is within normal limits where visualized. Left Impression 1. There is <50% diameter reduction (approximately 29% by 2-D measurement) in the internal carotid artery with a peak velocity of 130 cm/sec and heterogeneous plaque. 2. There is non-occluding plaque in the external carotid artery. 3. There is non-occluding plaque in the common carotid artery. 4. The vertebral artery flow is antegrade and normal. 5. The subclavian artery is within normal limits where visualized. Conclusions Summary Carotid duplex scanning and color flow imaging were performed bilaterally. The arteries were adequately visualized. The bilateral internal carotid arteries had <50% hemodynamically insignificant stenosis (approximately 31% by 2-D measurement on the right, approximately 29% by 2-D measurement on the left) with heterogeneous plaque. There was >50% stenosis of the right external carotid artery. The vertebral artery flow was antegrade and normal bilaterally. Signature Velocities are measured in cm/s ; Diameters are measured in cm Carotid Right Measurements + +----+----+-----+ + + + !Location !PSV !EDV !Angle!%Stenosis 2D!%Stenosis Doppler!Tortuosity ! + +----+----+-----+ + + + !Prox CCA !92 !15.2!60 ! ! ! ! + +----+----+-----+ + + + !Dist CCA !70.4!15.8!60 ! ! ! ! + +----+----+-----+ + + + !Prox ICA !62.7!18.8!60 ! ! ! ! + +----+----+-----+ + + + !Dist ICA !139 !34.6!60 ! ! ! ! + +----+----+-----+ + + + !Prox ECA !220 !19.6!60 ! ! ! ! + +----+----+-----+ + + + !Vertebral !66 !15.7!60 ! ! ! ! + +----+----+-----+ + + + !Prox Subclavian!121 !0 !60 ! ! ! ! + +----+----+-----+ + + + - There is antegrade vertebral flow noted on the right side. - Additional Measurements:ICAPSV/CCAPSV 1.97.ICAEDV/CCAEDV 2.28. Carotid Left Measurements + +----+----+-----+ + + + !Location !PSV !EDV !Angle!%Stenosis 2D!%Stenosis Doppler!Tortuosity ! + +----+----+-----+ + + + !Prox CCA !127 !21.2!60 ! ! ! ! + +----+----+-----+ + + + !Dist CCA !104 !29.1!60 ! ! ! ! + +----+----+-----+ + + + !Prox ICA !79.4!22 !60 ! ! ! ! + +----+----+-----+ + + + !Dist ICA !130 !37.7!60 ! ! ! ! + +----+----+-----+ + + + !Prox ECA !131 !20.4!60 ! ! ! ! + +----+----+-----+ + + + !Vertebral !66.8!13 !60 ! ! ! ! + +----+----+-----+ + + + !Prox Subclavian!130 !0 !60 ! ! ! ! + +----+----+-----+ + + + - There is antegrade vertebral flow noted on the left side. - Additional Measurements:ICAPSV/CCAPSV 1.25.ICAEDV/CCAEDV 1.78. Performing Organization Address City/State/Zipcode Phone Number [facility] [employer] [facility] 2D Echo W/Doppler(CW/PW/Color) (10/29/2017 2:21 PM CDT) Ejection Fraction [facility] [employer] [facility] Narrative Performed At Transthoracic Echocardiography Report (TTE) [facility] [employer] [facility] Demographics Patient NameADRIANNA GONZALEZ Date of Study10/29/2017 Male Visit [id number] Room [id number] Number Date of 1955Referring PhysicianSmari Gray S Age 62 year(s)Project Coordinator Rn Elliot Macdonald [facility] [employer] Radha Cummings, Interpreting Aura Russ MD RDCSPhysician Procedure Type of Study TTE procedure:2DECHO W DOPPLER(CW/PW/COLOR) (STAT) Indications:Acute Chest Pain/ Suspected CAD and Pre-op. Clinical History NO LABS AVAILABLE CAD, DM, HTN, DLD Contrast Medium: Definity. Amount - 3 ml Height: 74 inches Weight: 132.45 kg (292 lbs) BSA: 2.55 m^2 BMI: 37.49 kg/m^2 HR: 90 bpm BP: 134/71 mmHg Summary 1. The left ventricle is chamber size (by vol index) is normal (male - LVED vol - 34-74ml/m2). Normal LV wall thickness. All of the LV segments have normal contractility. Global LV systolic function is normal. LVEF by Kim's method of disk assessment is normal (>60%) . The LVEF was measured using Kim's bi-plane method of disk . Grade 1 diastolic dysfunction (impaired relaxation and low-normal LA pressure). 2. The right ventricular chamber size and systolic function are within normal limits. 3. LA size is normal (16-34 ml/m2) . RA cavity size is normal . 4. No significant valvular stenosis or regurgitation noted. Previous Study No prior exam available for comparison. Signature Findings Technical Quality: Technically adequate exam. Left Ventricle The left ventricle is chamber size (by vol index) is normal (male - LVED vol - 34-74ml/m2). Normal LV wa ll thickness. LV endocardium is adequately vi sualized with IV ultrasound enhancing agent. All of the LV segments have normal contractility. Gl obal LV systolic function is normal. LVEF by Si mpson's method of disk assessment is normal (> 60%) . The LVEF was measured using Kim's bi -plane method of disk . Grade 1 diastolic dy sfunction (impaired relaxation and low-normal LA pr essure). Left AtriumLA size is normal (16-34 ml/m2) . Right VentricleThe right ventricular chamber size and systolic fu nction are within normal limits. Right Atrium RA cavity size is normal . Aortic Valve Mild AoV cusp thickening. No evidence of aortic regurgitation. No evidence of aortic stenosis. Mitral Valve Mild MV leaflet thickening. Tr buddy mitral regurgitation. Tricuspid ValveTV structure is normal. No evidence of tricuspid regurgitation. Un able to estimate peak systolic PA pressure; in adequate TR velocity signal. Pulmonic Valve Normal PV structure and function by limited views an d Doppler. AortaAortic root size (SInus of Valsalva diameter) is no rmal . PericardiumNo pericardial effusion is visualized. IVC/SVC/PA/PV/PleuralThe estimated RA pressure by IVC dynamics in determinate . Th e inferior vena cava is not visualized. Chambers/Structures Left Atrium LA Volume: 47 ml LA Area: 15.55 cm^2 LA Vol. Index: 18 ml/m^2 Left Ventricle LVIDd: 4.11 cm LVEDV:78.98 ml LV Septum Diastolic: 1.14 cm LV PW Diastolic: 1.1 cm LVEDV Kim's:127.24 ml LVESV Kim's:45.65 ml LVEF Kim's: 64.1 % LVEDVI: 50 ml/m^2 LVES : 18 ml/m^2 LVOT Diameter: 2.19 cm Aorta Ao Root S of Jaci.: 3.37 cm Ascending Aorta: 3.4 cm Doppler/Quantitative Measurements Mitral Valve MV Peak E-Wave: 0.74 m/sMV Peak A-Wave: 1.21 m/s E/A Ratio: 0.61 Peak Gradient: 2.19 mmHg Deceleration Time: 224.5 msec MV Azeem. Peak: Tissue Doppler E' Septal Velocity: 0.06 m/s Aortic Valve Peak Velocity: 1.25 m/sMean Velocity: 0.89 m/s Peak Gradient: 6.21 mmHg Mean Gradient: 3.44 mmHg AV Area (continuity): 3.85 cm^2 AV VTI: 20.5 cm AV DVI: 1.02 LVOT Peak Velocity: 1.17 m/s Peak Gradient: 5.46 mmHg Mean Velocity: 0.79 m/s Mean Gradient: 2.87 mmHg LVOT Diameter: 2.19 cmLVOT VTI: 20.98 cm LVOT Area: 3.77 cm^2LVOT SV:78.99 ml LVOT CO: 7.11 l/min LVOT CI: 2.79 l/min/m^2 Procedure Note Interface, External Ris In - 10/29/2017 5:24 PM CDT Transthoracic Echocardiography Report (TTE) Demographics Patient Name ADRIANNA GONZALEZ Date of Study 10/29/2017 Gender Male Visit Number [id number] Race Room Number C631-1 Number Date of 1955 Referring Physician Lubna Gray S Age 62 year(s) Project Coordinator Rn Elliot Macdonald [facility] [employer] Radha Cummings, Interpreting Aura Russ MD [facility] Physician Procedure Type of Study TTE procedure:2DECHO W DOPPLER(CW/PW/COLOR) (STAT) Indications:Acute Chest Pain/ Suspected CAD and Pre-op. Clinical History NO LABS AVAILABLE CAD, DM, HTN, DLD Contrast Medium: Definity. Amount - 3 ml Height: 74 inches Weight: 132.45 kg (292 lbs) BSA: 2.55 m^2 BMI: 37.49 kg/m^2 HR: 90 bpm BP: 134/71 mmHg Summary 1. The left ventricle is chamber size (by vol index) is normal (male - LVED vol - 34-74ml/m2). Normal LV wall thickness. All of the LV segments have normal contractility. Global LV systolic function is normal. LVEF by Kim's method of disk assessment is normal (>60%) . The LVEF was measured using Kim's bi-plane method of disk . Grade 1 diastolic dysfunction (impaired relaxation and low-normal LA pressure). 2. The right ventricular chamber size and systolic function are within normal limits. 3. LA size is normal (16-34 ml/m2) . RA cavity size is normal . 4. No significant valvular stenosis or regurgitation noted. Previous Study No prior exam available for comparison. Signature Findings Technical Quality: Technically adequate exam. Left Ventricle The left ventricle is chamber size (by vol index) is normal (male - LVED vol - 34-74ml/m2). Normal LV wall thickness. LV endocardium is adequately visualized with IV ultrasound enhancing agent. All of the LV segments have normal contractility. Global LV systolic function is normal. LVEF by Kim's method of disk assessment is normal (>60%) . The LVEF was measured using Kim's bi-plane method of disk . Grade 1 diastolic dysfunction (impaired relaxation and low-normal LA pressure). Left Atrium LA size is normal (16-34 ml/m2) . Right Ventricle The right ventricular chamber size and systolic function are within normal limits. Right Atrium RA cavity size is normal . Aortic Valve Mild AoV cusp thickening. No evidence of aortic regurgitation. No evidence of aortic stenosis. Mitral Valve Mild MV leaflet thickening. Trace mitral regurgitation. Tricuspid Valve TV structure is normal. No evidence of tricuspid regurgitation. Unable to estimate peak systolic PA pressure; inadequate TR velocity signal. Pulmonic Valve Normal PV structure and function by limited views and Doppler. Aorta Aortic root size (SInus of Valsalva diameter) is normal . Pericardium No pericardial effusion is visualized. IVC/SVC/PA/PV/Pleural The estimated RA pressure by IVC dynamics indeterminate . The inferior vena cava is not visualized. Chambers/Structures Left Atrium LA Volume: 47 ml LA Area: 15.55 cm^2 LA Vol. Index: 18 ml/m^2 Left Ventricle LVIDd: 4.11 cm LVEDV:78.98 ml LV Septum Diastolic: 1.14 cm LV PW Diastolic: 1.1 cm LVEDV Kim's:127.24 ml LVESV Kim's:45.65 ml LVEF Kim's: 64.1 % LVEDVI: 50 ml/m^2 LVESVI: 18 ml/m^2 LVOT Diameter: 2.19 cm Aorta Ao Root S of Jaci.: 3.37 cm Ascending Aorta: 3.4 cm Doppler/Quantitative Measurements Mitral Valve MV Peak E-Wave: 0.74 m/s MV Peak A-Wave: 1.21 m/s E/A Ratio: 0.61 Peak Gradient: 2.19 mmHg Deceleration Time: 224.5 msec MV Azeem. Peak: Tissue Doppler E' Septal Velocity: 0.06 m/s Aortic Valve Peak Velocity: 1.25 m/s Mean Velocity: 0.89 m/s Peak Gradient: 6.21 mmHg Mean Gradient: 3.44 mmHg AV Area (continuity): 3.85 cm^2 AV VTI: 20.5 cm AV DVI: 1.02 LVOT Peak Velocity: 1.17 m/s Peak Gradient: 5.46 mmHg Mean Velocity: 0.79 m/s Mean Gradient: 2.87 mmHg LVOT Diameter: 2.19 cm LVOT VTI: 20.98 cm LVOT Area: 3.77 cm^2 LVOT SV:78.99 ml LVOT CO: 7.11 l/min LVOT CI: 2.79 l/min/m^2 Performing Organization Address City/State/Zipcode Phone Number [facility] after 03/30/2017 Insurance Payer Benefit Plan / Subscriber ID Type Phone Address Group MEDICARE MEDICARE PART A xxxxxxxxxxx Medicare BLUE CROSS/BLUE BCBS HMO xxxxxxxxxxxx HMO/POS [phone] [address] [employer] [place] [address] (Home) [place] [address] Advance Directives For more information, please contact:[address] [phone] Code Status Date Activated Date Inactivated Comments Full Code 11/08/2017 1:16 AM 11/11/2017 8:14 PM This code status was determined by: Patient Full Code 10/29/2017 2:13 PM 11/08/2017 1:16 AM This code status was determined by: Patient Full Code 10/29/2017 1:45 PM 10/29/2017 2:13 PM This code status was determined by: Patient
--- OUTSIDE RECORDS SUMMARY | 2018-03-31 19:31 | XMS REPORT | Continuity of Care Document ---
:1955 Author Organization [facility] Care Team Providers Name Role Phone Mark Anthony Jennings MD Unavailable Insurance Providers Payer name Policy type / Policy ID Covered green party ID Policy Macias Coverage type [facility] Encounters Encounter Performer Location Date Office Visit Mark Anthony Jennings MD [facility] [place] Problems Problem Effective Dates [...]
--- OUTSIDE RECORDS SUMMARY | 2018-03-31 19:31 | XMS REPORT | Continuity of Care Document ---
:1955 Author Organization [facility] Care Team Providers Name Role Phone Mark Anthony Jennings MD Unavailable Insurance Providers Payer name Policy type / Policy ID Covered democrat ID Policy Macias Coverage type [facility] Encounters Encounter Performer Location Date Office Visit Mark Anthony Jennings MD [facility] [place] Aug 27, 2014 Problems Problem Effective Dates [...]
--- OUTSIDE RECORDS SUMMARY | 2018-03-31 19:31 | XMS REPORT | Continuity of Care Document ---
:1955 Author Organization [facility] Care Team Providers Name Role Phone Dick CASTELAN, Mark Anthony Chavis Unavailable Insurance Providers Payer name Policy type / Policy ID Covered republican ID Policy Macias Coverage type [facility] Encounters Encounter Performer Location Date Office Visit Mark Anthony Jennings MD [facility] [place] 2014 Problems Problem Effective Dates [...]
--- OUTSIDE RECORDS SUMMARY | 2018-03-31 19:31 | XMS REPORT | Continuity of Care Document ---
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/19 Problem [...] Quintanilla DDD (<span Active Problem 07/03/2015 OPID ID="[id number]"> Juma Confirmed</span>) OPID Quint[place] DM (<span Active Problem 07/03/2015 OPID ID="[id number]"> Juma Confirmed</span>) OPID [place] HTN (<span Active Problem 07/03/2015 OPID ID="[id number]"> Juma Confirmed</span>) OPIMary GrecoQuintanilla Hypothyroidism Active Problem 07/03/2015 GIANFRANCO Dennison, GIANFRANCO Quintanilla Obesity Active Problem 07/03/2015 GIANFRANCO Dennison, GIANFRNACO [place] Final: 07/29/2014 [facility] LUMB/LUMBOSAC Active [facility] DISC [facility] SPIN STEN,LUMBR Active [facility] LUMBAR DISC Active [facility] Medications Medication Details Route Status Patient Ordering Order Source Instructions Provider Date HYDROCODONE-ACETA 1 po q h prn Active 11/03/ [facility]325 pain 2015 Neuro MG TABS CYCLOBENZAPRINE 1 tab po every Active 08/27/ [facility] HCL 10 MG TABS 8hrs 2015 Neuro CYCLOBENZAPRINE 1 tab po every Active 08/27/ [facility] HCL 10 MG TABS 8hrs 2015 Neuro Sodium Chloride 1,000 mL, 1,000 Inactive 07/24[facility] [place] 0.154 MEQ/ML ml/hr, Infuse 2015 Medical Injectable Over: 1 hr, [place] Solution Route: IV, ONCE, Priority: STAT, Dosing Weight 122.727 kg, Start date: 07/24/14 15:58:00, Duration: 1 doses or times, Stop date: 07/24/14 15:58:00 Cyclobenzaprine 10 mg=1 tab, Inactive 07/24[facility] [place] hydrochloride 10 PO, BID, PRN 2015 Medical MG Oral Tablet for spasm, # 30 Center [Flexeril] tab, 0 Refill(s) ondansetron 4 mg 4 mg=1 tab, PO, Inactive [place] oral tablet TID, # 30 tab, 2014 Medical 0 Refill(s) Center Acetaminophen 325 1-2 tab, PO, Inactive [facility] MG / Hydrocodone Q4-6H, PRN 2014 Medical Bitartrate 10 MG Pain, # 90 tab, Center Oral Tablet 0 Refill(s) [[place] 10/325] senna 15 mg oral 15 mg=1 tab, Inactive [facility] tablet PO, Daily, PRN 2014 Medical for Center constipation, # 30 tab, 0 Refill(s) Miralax 17 gm, 1 pkt, Inactive [facility] Route: PO, Drug 2014 Medical form: PWDR, [place] ONCE, Dosing Weight 122.727, kg, Start date: 07/23/14 18:00:00, Duration: 1 doses or times, Stop date: 07/23/14 18:00:00Notes: Dissolve in 8 oz of water or juice. (Same as: Miralax) Lisinopril 10 mg, 1 tab, No Longer [facility] Route: PO, Drug Active 2014 Medical form: TAB, Center Daily, Dosing Weight 122.727, kg, Start date: 07/23/14 9:00:00, Duration: 30 day, Stop date: 08/21/14 9:00:00Notes: (Same as: Prinivil, Zestril) Thyroxine 175 microgram, No Longer [facility] Route: PO, Drug Active 2014 Medical form: TAB, Center Daily, Dosing Weight 122.727, kg, Start date: 07/23/14 9:00:00, Duration: 30 day, Stop date: 08/21/14 9:00:00 pneumococcal 0.5 mL, Route: Inactive [facility] capsular IM, Drug Form: 2014 Medical polysaccharide INJ, Daily, Center type 1 vaccine / Start date: pneumococcal 07/23/14 capsular 9:00:00, polysaccharide Duration: 1 type 10A vaccine doses or times, / pneumococcal Stop date: capsular 07/23/14 polysaccharide 9:00:00Notes: type 11A vaccine (Same as: / pneumococcal Pneumovax 23) capsular Refrigerate polysaccharide type 12F vaccine / pneumococcal capsular polysacchar Levothroid 100 microgram, No Longer [facility] 1 tab, Route: Active 2014 Medical PO, Drug form: Center TAB, Q630AM, Start date: 07/23/14 6:30:00, Duration: 30 day, Stop date: 08/21/14 6:30:00Notes: Take 1 hour before or 2 hours after meal; Enteral feeds may interefere with the absorption of this medication. (Same as:Levothroid, Synthroid) Synthroid 75 microgram, 1 No Longer [facility] tab, Route: PO, Active 2014 Medical Drug form: TAB, [place] Q630AM, Start date: 07/23/14 6:30:00, Duration: 30 day, Stop date: 08/21/14 6:30:00Notes: Take 1 hour before or 2 hours after meal; Enteral feeds may interefere with the absorption of this medication. (Same as:Synthroid, Levothroid) sennosides, SHELTER 8.6 mg, 1 tab, No Longer [facility] Route: PO, Drug Active 2014 Medical Form: TAB, Center Dosing Weight 122.727, kg, Q12H, Start date: 07/22/14 21:00:00, Duration: 30 day, Stop date: 08/21/14 9:00:00Notes: (Same as: Senokot) Docusate 100 mg, 1 cap, No Longer [facility] Route: PO, Drug Active 2014 Medical form: CAP, Center Q12H, Dosing Weight 122.727, kg, Start date: 07/22/14 21:00:00, Duration: 30 day, Stop date: 08/21/14 9:00:00Notes: (Same as: Colace) (Do Not Crush) Famotidine 20 mg, 2 mL, No Longer [facility] Route: IVP, Active 2014 Medical Drug form: INJ, Center Q12H, Dosing Weight 122.727, kg, Start date: 07/22/14 21:00:00, Duration: 30 day, Stop date: 08/21/14 9:00:00Notes: (Same as: Pepcid) Can be dilute in 5-10cc NS IVP: Slow IV push over at least 2 minutes. ceFAZolin 1 gm, Route: No Longer [place] IV, Drug form: Active 2014 Medical PDR/INJ, Center ABXQ8H, Start date: 07/22/14 21:00:00, Duration: 24 hr, Stop date: 07/23/14 13:00:00Notes: (Same As: Joyce Alcantar) MEDICATION WASTE Product Size: 1000 mg Product Wasted: ___ mg Lipitor 10 mg, 1 tab, No Longer [place] Route: PO, Drug Active 2014 Medical form: TAB, Center Bedtime, Start date: 07/22/14 21:00:00, Duration: 30 day, Stop date: 08/20/14 21:00:00Notes: (Same As: Lipitor) Lovastatin 20 mg, Route: Inactive [place] PO, Drug form: 2014 Medical TAB, Bedtime, Center Dosing Weight 122.727, kg, Start date: 07/22/14 21:00:00, Duration: 30 day, Stop date: 08/20/14 21:00:00 Saline Flush 0.9% 10 ml, Route: No Longer [place] IVP, Drug Form: Active 2014 Medical INJ, Dosing Center Weight 122.727, kg, Q12H, Start date: 07/22/14 21:00:00, Duration: 30 day, Stop date: 08/21/14 9:00:00Notes: (Same as: BD Posiflush) Metformin 500 mg, 1 tab, No Longer [place] hydrochloride 500 Route: PO, Drug Active 2014 Medical MG Oral Tablet form: TAB, BID, Center Dosing Weight 122.727, kg, Start date: 07/22/14 17:00:00, Duration: 30 day, Stop date: 08/21/14 9:00:00Notes: (Same as: Glucophage) Take with meal bupivacaine 20 mL, Route: Inactive [facility] liposome InFILtration(lo 2014 Medical ray), Drug [...] Morphine 30 mg, 30 mL, No Longer [place] Route: IV, Active 2014 Medical Initial Loading Center Dose: 2 mg, MANAGER UNIX Dose: 1 mg, MANAGER UNIX Lockout: 10 minutes, Continuous Basal Rate: 0 mg, 4 Hour Limit (In MG): 30, Drug Form: INJ, Continuous, Start date: 07/22/14 12:30:00, Duration: 30 day, Stop date: 08/21/14 12:2...Notes: Dose: Delay: Basal rate: 4hr limit: (Same as:Kimo) Valium 5 mg, 1 tab, No Longer [place] Route: PO, Drug Active 2014 Medical form: TAB, TID, Center Dosing Weight 122.727, kg, PRN Spasm, Start date: 07/22/14 12:05:00, Duration: 30 day, Stop date: 08/21/14 12:04:00Notes: (Same as: Valium) Naloxone 0.04 mg, 0.1 No Longer [facility] mL, Route: IVP, Active 2014 Medical [...] not exceed 4gm/day of acetaminophen. (Same as: [place] 325/10) Ondansetron 4 mg, 2 mL, No Longer [place] Route: IVP, Active 2014 Medical Drug form: INJ, Center Q8H, Dosing Weight 122.727, kg, PRN Nausea & Vomiting, Start date: 07/22/14 12:02:00, Duration: 30 day, Stop date: 08/21/14 12:01:00Notes: (Same as: Rohit) MEDICATION WASTE Product Size: 4 mg Product Wasted: __0_ mg Sodium Chloride 1,000 mL, Rate: No Longer [place] 0.154 MEQ/ML 50 ml/hr, Active 2014 Medical Injectable Infuse over: 20 Center Solution hr, Route: IV, Dosing Weight 122.727 kg, Total Volume: 1,000, Start date: 07/22/14 12:02:00, Stop date: 08/21/14 12:01:00 Saline Flush 0.9% 10 ml, Route: No Longer [place] IVP, Drug Form: Active 2014 Medical INJ, [...] Refill(s) Plus Low 1 tab, PO, Active [facility] [place] oral tablet Daily, 0 2014 [...] TABS 2015 Neuro SYNTHROID 75 MCG Active 07/07/ [facility] TABS 2015 Neuro DICLOFENAC SODIUM Active [...] Reaction Status Date Comments Source type Reported Immunizations Immunization Date Site Status Last Comments Source Given Updated pneumococcal Left completed [employer] GIANFRANCO 23-valent vaccine 5 Deltoid Juma, GIANFRANCO Quintanilla Results Order Name Results Value Reference Date Interpretation Comments Source Range Spine Spine lumbar EXAM: MRI LUMBAR SPINE WITHOUT CONTRAST 06/29 - CHERELLE MEDEL lumbar wo wo contrast /2015 - [place] contrast MRI MRI DATE: 06/30/2015 Read by: [...] series EXAM: RIGHT FOOT 3 VIEWS 08/27 - OPID DX DX /2014 [place] DATE: Aug 27, 2014 10:58:00 AM Read [...] Globulin 3.7 g/dL 2.0 - 4.0 07/[address] CHEM PANEL A/G Ratio 0.8 0.7 - 1.6 07/[address] CHEM PANEL AGAP 13.9 meq/L 10.0 - 07/26 [facility] 20.0 [facility] CHEM PANEL B/C Ratio 11 6 - 25 07/[address] CHEM PANEL eGFR 94 07/26 1Result Comment: The eGFR is calculated using the CKD-EPI formula. In most young, healthy individuals the eGFR will be >90 mL/ min/1.73m2. The eGFR declines with age. An eGFR of 60-89 may be normal in [facility] mL/min/1.7 some populations, particularly the elderly, for whom the CKD-EPI formula has not been extensively validated. Use of the eGFR is not recommended in the following populations: [address] Individuals with unstable creatinine concentrations, including [...] values reflect the clinical guidelines of the [place] [employer]. [facility] CHEM PANEL BUN 10 mg/dL 7 - 22 07/26 [facility] CHEM PANEL ALT 63 unit/L 0 - 65 07/26 [facility]2014 [facility] CHEM PANEL AST 31 unit/L 0 - 37 07/26 [facility]2014 [facility] CHEM PANEL Albumin Lvl 2.9 g/dL 3.5 - 5.0 07/[address] CHEM PANEL Bili Total 0.4 mg/dL 0.2 - 1.3 07/26 [facility]2014 [facility] CHEM PANEL Alk Phos 100 unit/L 39 - 136 07/26 [facility]2014 [facility] CHEM PANEL Potassium 3.9 meq/L 3.5 - 5.1 07/26 [facility] CHEM PANEL Sodium Lvl 140 meq/L 135 - 145 07/26 [facility]2014 [facility] CHEM PANEL CO2 22 meq/L 24 - 32 07/26 [facility]2014 [facility] CHEM PANEL Chloride Lvl 108 meq/L 95 - 109 07/26 [facility]2014 [facility] CHEM PANEL Creatinine 0.9 mg/dL 0.5 - 1.4 07/26 [facility] CHEM PANEL Calcium Lvl 9.0 mg/dL 8.5 - 10.5 07/26 [facility]2014 [facility] CHEM PANEL Total 6.6 g/dL 6.4 - 8.4 07/26 [facility] HEMATOLOGY Platelet 176 K/CMM 133 - 450 07/26 [facility]2014 [facility] HEMATOLOGY Hgb 12.5 g/dL 14.0 - 07/26 18.0 [facility] HEMATOLOGY Hct 38.8 % 42.0 - 07/26 54.0 [facility] HEMATOLOGY RBC 4.41 M/CMM 4.70 - 07/26 6.10 [facility] HEMATOLOGY MCV 88.1 fL 80.0 - 07/26 94.0 [facility] HEMATOLOGY MCH 28.3 pg 27.0 - 07/26 31.0 [facility] HEMATOLOGY MPV 10.3 fL 7.4 - 10.4 07/26 [facility] HEMATOLOGY RDW 13.7 % 11.5 - 07/26 14.5 [facility] HEMATOLOGY MCHC 32.1 g/dL 32.0 - 07/26 36.0 [facility] HEMATOLOGY WBC 11.4 K/CMM 3.7 - 10.4 07/26 [facility] HEMATOLOGY Segs-Bands # 7.9 K/CMM 1.5 - 8.1 07/26 [facility] HEMATOLOGY Lymphocytes 2.2 K/CMM 1.0 - 5.5 07/26 [facility] HEMATOLOGY Monocytes 9.9 % 2.0 - 12.0 07/26 [facility] HEMATOLOGY Basophils 0.2 % 0.0 - 1.0 07/26 [facility] HEMATOLOGY Eosinophils 1.2 % 0.0 - 4.0 07/26 [facility] HEMATOLOGY Eosinophils 0.1 K/CMM 0.0 - 0.5 07/26 [facility] HEMATOLOGY Monocytes # 1.1 K/CMM 0.0 - 0.8 07/26 [facility] HEMATOLOGY Lymphocytes 19.5 % 20.0 - 07/26 40.0 [facility] HEMATOLOGY Segs 69.2 % 45.0 - 07/26 75.0 [facility] CHEM PANEL eGFR 94 07/25 2Result Comment: The eGFR is calculated using the CKD-EPI formula. In most young, healthy individuals the eGFR will be >90 mL/ min/1.73m2. The eGFR declines with age. An eGFR of 60-89 may be normal in [facility] mL/min/1. some populations, particularly the elderly, for whom the CKD-EPI formula has not been extensively validated. Use of the eGFR is not recommended in the following populations: [address] Individuals with unstable creatinine concentrations, including [...] Phos 84 unit/L 39 - 136 07/25 [facility] CHEM PANEL Bili Total 0.5 mg/dL 0.2 - 1.3 07/25 [facility] CHEM PANEL ALT 45 unit/L 0 - 65 07/25 [facility]2014 [facility] CHEM PANEL AST 27 unit/L 0 - 37 07/25 [facility]2014 [facility] CHEM PANEL Chloride Lvl 107 meq/L 95 - 109 07/25 [facility]2014 [facility] CHEM PANEL BUN 15 mg/dL 7 - 22 07/25 [facility]2014 [facility] CHEM PANEL Glucose Lvl 113 mg/dL 70 - 99 07/25 5Interpretive Data: Adult reference range values reflect the clinical guidelines of the [place] [employer]. [facility] CHEM PANEL Albumin Lvl 3.1 g/dL 3.5 - 5.0 07/25 [facility] CHEM PANEL CO2 20 meq/L 24 - 32 07/25 [facility]2014 [facility] CHEM PANEL Calcium Lvl 8.8 mg/dL 8.5 - 10.5 07/25 2014 [facility] CHEM PANEL Total 7.2 g/dL 6.4 - 8.4 07/25 [facility] CHEM PANEL Creatinine 0.9 mg/dL 0.5 - 1.4 07/25 [facility] CHEM PANEL Sodium Lvl 138 meq/L 135 - 145 07/25 [facility]2014 [facility] CHEM PANEL Potassium 4.1 meq/L 3.5 - 5.1 07/25 [facility] CHEM PANEL Globulin 4.1 g/dL 2.0 - 4.0 07/25 [facility]2014 [facility] CHEM PANEL A/G Ratio 0.8 0.7 - 1.6 07/25 [facility]2014 [facility] CHEM PANEL AGAP 15.1 meq/L 10.0 - 07/25 20.0 [facility] CHEM PANEL B/C Ratio 17 6 - 25 07/25 [facility] HEMATOLOGY Lymphocytes 2.3 K/CMM 1.0 - 5.5 07/25 [place] # /2014 [facility] HEMATOLOGY Eosinophils 0.1 K/CMM 0.0 - 0.5 07/25 # /2014 [facility] HEMATOLOGY Basophils 0.3 % 0.0 - 1.0 07/25 [facility] HEMATOLOGY Monocytes # 1.2 K/CMM 0.0 - 0.8 07/25 [facility] HEMATOLOGY Segs-Bands # 10.3 K/CMM 1.5 - 8.1 07/25 [facility] HEMATOLOGY Eosinophils 0.8 % 0.0 - 4.0 07/25 [facility] HEMATOLOGY Monocytes 8.9 % 2.0 - 12.0 07/25 [facility] HEMATOLOGY Segs 73.8 % 45.0 - 07/25 [place] 75.0 [facility] HEMATOLOGY Lymphocytes 16.2 % 20.0 - 07/25 [place] 40.0 [facility] HEMATOLOGY Hct 39.7 % 42.0 - 07/25 [place] 54.0 [facility] HEMATOLOGY MCV 87.4 fL 80.0 - 07/25 [place] 94.0 [facility] HEMATOLOGY MCHC 32.5 g/dL 32.0 - 07/25 [place] 36.0 [facility] HEMATOLOGY MCH 28.5 pg 27.0 - 07/25 31.0 [facility] HEMATOLOGY RDW 13.5 % 11.5 - 07/25 [place] 14.5 [facility] HEMATOLOGY Platelet 163 K/CMM 133 - 450 07/25 [facility] HEMATOLOGY MPV 10.2 fL 7.4 - 10.4 07/25 [facility] HEMATOLOGY Hgb 12.9 g/dL 14.0 - 07/25 [place] 18.0 [facility] HEMATOLOGY RBC 4.54 M/CMM 4.70 - 07/25 [place] 6.10 [facility] HEMATOLOGY WBC 14.0 K/CMM 3.7 - 10.4 07/25 [facility] HEMATOLOGY RBC 5.17 M/CMM 4.70 - 07/24 [facility] [place] 6.10 [facility] HEMATOLOGY Hgb 14.8 g/dL 14.0 - 07/24 18.0 [facility] HEMATOLOGY Platelet 212 K/CMM 133 - 450 07/24 [facility] HEMATOLOGY WBC 20.3 K/CMM 3.7 - 10.4 07/24 [facility] HEMATOLOGY MPV 10.2 fL 7.4 - 10.4 07/24 [facility] HEMATOLOGY MCV 87.7 fL 80.0 - 07/24 94.0 [facility] HEMATOLOGY Hct 45.4 % 42.0 - 07/24 54.0 [facility] HEMATOLOGY MCHC 32.5 g/dL 32.0 - 07/24 36.0 [facility] HEMATOLOGY MCH 28.5 pg 27.0 - 07/24 31.0 [facility] HEMATOLOGY RDW 13.8 % 11.5 - 07/24 14.5 [facility] HEMATOLOGY Monocytes 8.6 % 2.0 - 12.0 07/24 [facility] HEMATOLOGY Eosinophils 0.2 % 0.0 - 4.0 07/24 [facility] HEMATOLOGY Basophils 0.2 % 0.0 - 1.0 07/24 [facility] HEMATOLOGY Segs-Bands # 15.8 K/CMM 1.5 - 8.1 07/24 [facility] HEMATOLOGY Lymphocytes 2.7 K/CMM 1.0 - 5.5 07/24 # /2014 [facility] HEMATOLOGY Monocytes # 1.8 K/CMM 0.0 - 0.8 07/24 [facility] HEMATOLOGY Segs 77.9 % 45.0 - 07/24 75.0 [facility] HEMATOLOGY Lymphocytes 13.1 % 20.0 - 07/24 [place] 40.0 [facility] BLOOD BANK ABO/Rh A POS 07/22 RESULTS [facility] BLOOD BANK Antibody Negative 07/22 [facility] RESULTS [facility] (07/22/14 10:05 AM) [place] CHEM PANEL eGFR 83 07/20 3Result Comment: [...] is not recommended in the following populations: [address] Individuals with unstable creatinine concentrations, including [...] Phos 91 unit/L 39 - 136 07/20 [facility] CHEM PANEL Bili Total 0.4 mg/dL 0.2 - 1.3 07/20 [facility] CHEM PANEL Albumin Lvl 4.0 g/dL 3.5 - 5.0 07/20 [facility] CHEM PANEL ALT 58 unit/L 0 - 65 07/20 [facility] CHEM PANEL AST 17 unit/L 0 - 37 07/20 [facility] CHEM PANEL CO2 29 meq/L 24 - 32 07/20 [facility] CHEM PANEL Calcium Lvl 9.2 mg/dL 8.5 - 10.5 07/20 [facility] CHEM PANEL Total 7.3 g/dL 6.4 - 8.4 07/20 [facility] CHEM PANEL Sodium Lvl 143 meq/L 135 - 145 07/20 [facility] CHEM PANEL BUN 19 mg/dL 7 - 22 07/20 [facility] CHEM PANEL Creatinine 1.0 mg/dL 0.5 - 1.4 07/20 [facility] CHEM PANEL Potassium 4.3 meq/L 3.5 - 5.1 07/20 [facility] CHEM PANEL Chloride Lvl 106 meq/L 95 - 109 07/20 [facility] CHEM PANEL Glucose Lvl 87 mg/dL 70 - 99 07/20 6Interpretive Data: Adult reference range values reflect the clinical guidelines of the [place] [employer]. [facility] CHEM PANEL A/G Ratio 1.2 0.7 - 1.6 07/20 [facility] CHEM PANEL AGAP 12.3 meq/L 10.0 - 07/20 [facility] 20.0 [facility] CHEM PANEL B/C Ratio 19 6 - 25 07/20 [facility] CHEM PANEL Globulin 3.3 g/dL 2.0 - 4.0 07/20 [facility] HEMATOLOGY Eosinophils 0.1 K/CMM 0.0 - 0.5 07/20 [facility] # /2014 [facility] HEMATOLOGY INR 1.00 0.85 - 07/20 7Interpretive Data: RECOMMENDED RANGES FOR PROTIME INR: [facility] . 2.0-3.0 for most medical and surgical thromboembolic states. [facility] 2.5-3.5 for artificial heart valves and recurrent embolism. [place] INR SHOULD BE USED ONLY FOR PATIENTS ON STABLE ANTICOAGULANT THERAPY. HEMATOLOGY PT 13.2 s 12.0 - 07/20 [facility] 14.7 /2014 [facility] HEMATOLOGY PTT 33.7 s 22.9 - 07/20 8Interpretive [facility] 35.8 Data: Heparin [facility] Center Range: 57 - 92 Seconds URINE AND UA Mucus Few /LPF None Seen 07/20 [facility] STOOL /LPF /2014 [facility] URINE AND UA WBC null 0 - 5 07/20 [facility] [place] [facility] URINE AND UA Nitrite Negative Negative 07/20 [facility] (07/20/14 12:03 PM) [place] URINE AND UA 0.2 EU/dL 0.1 - 1.0 07/20 [facility] [place] [facility] Urobilinogen /[address] [place] [address] URINE AND UA pH 5.5 5.0 - 8.0 07/20 [facility] [place] [facility] URINE AND UA Leuk Est Negative Negative 07/20 [facility] (07/20/14 12:03 PM) [place] URINE AND UA Glucose Negative Negative 07/20 [facility] [place] [facility] mg/dL mg/dL /2014 [facility] URINE AND UA Protein Negative Negative 07/20 [facility] [place] [facility] mg/dL mg/dL /2014 [facility] URINE AND UA Bili Negative Negative 07/20 [facility] [place] [facility] *NA* [place] (07/20/14 12:03 PM) URINE AND UA Blood Negative Negative 07/20 [facility] [place] [facility] (07/20/14 12:03 PM) [place] URINE AND UA Ketones Negative Negative 07/20 [facility] mg/dL mg/dL /2014 [facility] URINE AND UA Color Yellow Yellow 07/20 [facility] STOOL [facility] *NA* [place] (07/20/14 12:03 PM) URINE AND UA Turbidity Clear Clear 07/20 [facility] [place] [facility] /2014 [facility] (07/20/14 12:03 PM) [place] URINE AND UA Spec Grav 1.020 <=1.030 07/20 [facility] [place] [facility] /[address] [place] [address] URINE AND UA Sq Epi None Seen Few 07/20 [facility] /2014 [facility] (07/20/14 12:03 PM) [place] Vital Signs Vital Sign Value Date Comments Source Weight 250.0 11/03/2014 [facility] Neuro Height 73 11/03/2014 [facility] Temperature Oral (F) 98.0 F 11/03/2014 [facility] Heart Rate 90 11/03/2014 [facility] Systolic (mm Hg) 148 11/03/2014 [facility] Diastolic (mm Hg) 86 11/03/2014 [facility] Weight 273 08/27/2014 [facility] Height 73 08/27/2014 [facility] Temperature Oral (F) 97.3 F 08/27/2014 [facility] Heart Rate 97 08/27/2014 [facility] Systolic (mm Hg) 163 08/27/2014 [facility] [facility] Diastolic (mm Hg) 94 08/27/2014 [facility] Weight 284 08/06/2014 [facility] Temperature Oral (F) 98.3 F 08/06/2014 [facility] Respitory Rate 18 08/06/2014 [facility] Heart Rate 104 08/06/2014 [facility] Height 72 08/06/2014 [facility] Systolic (mm Hg) 139 08/06/2014 [facility] Diastolic (mm Hg) 82 08/06/2014 [facility] Systolic (mm Hg) 123 07/26/2014 [facility] Diastolic (mm Hg) 77 07/26/2014 [facility] Heart Rate 86 07/26/2014 [facility] Respitory Rate 18 07/26/2014 [facility] Temperature Oral (F) 98.4 F 07/26/2014 [facility] Heart Rate 79 07/26/2014 [facility] Temperature Oral (F) 98.4 F 07/26/2014 [facility] Respitory Rate 18 07/26/2014 [facility] Systolic (mm Hg) 132 07/26/2014 [facility] Diastolic (mm Hg) 74 07/26/2014 [facility] Temperature Oral (F) 97.6 F 07/26/2014 [facility] Heart Rate 81 07/26/2014 [facility] Systolic (mm Hg) 137 07/26/2014 [facility] Diastolic (mm Hg) 80 07/26/2014 [facility] Respitory Rate 20 07/26/2014 [facility] Weight 122.727 07/22/2014 [facility] BMI Calculated 35.7 07/22/2014 [facility] Height 185.42 cm 07/22/2014 [facility] Weight 270.0 07/07/2014 [facility] Height 72 07/07/2014 [facility] Temperature Oral (F) 98.6 F 07/07/2014 [facility] Heart Rate 100 07/07/2014 [facility] Systolic (mm Hg) 161 07/07/2014 [facility] Diastolic (mm Hg) 93 07/07/2014 [facility] Respitory Rate 18 07/07/2014 [facility] Location Location Encounter Encounter Reason Attending ADM DC Status Source Details Type Number For Provider Date Date Visit [facility] [id number] Mark Anthony 07/07 07/07 [facility] 3790 Dick CASTELAN /2014 [facility] [id number] Mark Anthony 07/22 07/26 [facility] Dick /2014 [facility] [id number] Mark Anthony 08/06 08/06 [facility] 9830 Dick CASTELAN /2014 [facility] [id number] Mark Anthony 08/27 08/27 [facility] 2120 Dick CASTELAN /2014 [facility] Outpt Diag [id number] Mark Anthony 08/27 08/28 [facility] [id number] Mark Anthony 11/03 11/03 [facility] 1260 Dick CASTELAN /2014 [facility] [id number] JAMIE 06/[address] [facility] Outpt Diag [id number] Jamie 06/08 06/09 [facility] /2015 [facility] Outpt Diag [id number] Jamie 06/29 06/30 [facility] [place] /2015 [facility] [id number] JAMIE 07/[address] [facility] /2015 [facility] [id number] MARCIA 05/09 [facility] /2017 [place] [facility] Procedure Code Date Perfomer Comments Source Colonoscopy [id number] [facility] [place] Oral operation [id number] [facility] Colonoscopy [id number] [facility] [place] [facility] [id number] [facility] [place] Colonoscopy [id number] [facility] Oral operation [id number] [facility]
--- OUTSIDE RECORDS SUMMARY | 2018-03-31 19:32 | XMS REPORT | Continuity of Care Document ---
:1955 Author Organization [facility] Care Team Providers Name Role Phone Mark Anthony Jennings MD Unavailable Insurance Providers Payer name Policy type / Policy ID Covered democrat ID Policy Mac[place] Coverage type [facility] Encounters Encounter Performer Location Date Office Visit Mark Anthony Jennings MD [facility] [place] 2014 Problems Problem Effective Dates [...]
--- OUTSIDE RECORDS SUMMARY | 2018-03-31 19:33 | XMS REPORT ---
:1955 Author Organization [facility] Address [address] [place] [address] Care Team Providers Name Role Phone DAVIAN GARAY Unavailable Unavailable Problems This patient has no known problems. Allergies, Adverse Reactions, Alerts This patient has no known allergies or adverse reactions. Medications This patient has no known medications. Results Test Description Test Time Test Comments Text Results Atomic Results Result Comments POCT-GLUCOSE METER 2017-11-11 16:02:00 Test Item Value Reference Range Comments POC-GLUCOSE METER (BEAKER) (test 91 mg/dL 70-110 TESTED AT [address] ocqe=3996) [facility] [address] POCT-GLUCOSE [id number] 12:30:00 Test Item Value Reference Range Comments POC-GLUCOSE METER (BEAKER) 102 mg/dL 70-110 TESTED AT [address] (test hyqc=8495) [facility] [address] RAD, CHEST, 1 VIEW, NON [id number] 12:12:00Reason for exam:->pl effusionShould this be performed at the bedside?->YesFINAL REPORT Chest one view INDICATION: Pleural effusion COMPARISON: 2017IMPRESSION: Right jugular line and median sternotomy changes are again noted. The cardiac silhouetteis enlarged. There is mild pulmonary vascular congestion. Similar basilar opacities suggest atelectasis with possible minimal pleural effusions. Pneumonitis should be excluded clinically. No pneumothorax is seen. The right diaphragm remains mildly elevated. Signed: Yuri Chávez Verified Date/Time: 11/11/2017 12:12:58 Reading Location: [facility] Radiology Reading Room POCT-GLUCOSE [id number] 08:18:00 Test Item Value Reference Range Comments POC-GLUCOSE METER (BEAKER) 107 mg/dL 70-110 [facility] AT [facility] (test vhcw=1850) [facility] [address] BASIC METABOLIC [id number] 05:29:00 Test Item Value Reference Range Comments SODIUM (BEAKER) (test 133 meq/L 136-145 cumr=186) POTASSIUM (BEAKER) (test 4.4 meq/L 3.5-5.1 zjky=752) CHLORIDE (BEAKER) (test 102 meq/L 98-107 uxae=001) CO2 (BEAKER) (test 24 meq/L 22-29 tgqz=620) BLOOD UREA NITROGEN 16 mg/dL 7-21 (BEAKER) (test akwx=439) CREATININE (BEAKER) (test 1.09 mg/dL 0.57-1.25 qtfz=084) GLUCOSE RANDOM (BEAKER) 102 mg/dL 70-105 (test bbeq=133) CALCIUM (BEAKER) (test 8.9 mg/dL 8.4-10.2 rqyk=854) EGFR (BEAKER) (test mL/min/1.73 sq m INSUFFICIENT CLINICAL DATA ugyx=6478) TO CALCULATE ESTIMATED GFR. [id number] 05:28:00 Test Item Value Reference Range Comments MAGNESIUM (BEAKER) (test cgbz=616) 2.0 mg/dL 1.6-2.6 CBC (HEMOGRAM ONLY)2017-11-11 04:44:00 Test Item Value Reference Range Comments WHITE BLOOD CELL COUNT (BEAKER) (test eqel=168) 12.7 K/ L 3.5-10.5 RED BLOOD CELL COUNT (BEAKER) (test rxgy=506) 3.02 M/ L 4.63-6.08 HEMOGLOBIN (BEAKER) (test orfr=337) 8.5 GM/DL 13.7-17.5 HEMATOCRIT (BEAKER) (test ebjp=751) 26.8 % 40.1-51.0 MEAN CORPUSCULAR VOLUME (BEAKER) (test fxrx=748) 88.7 fL 79.0-92.2 MEAN CORPUSCULAR HEMOGLOBIN (BEAKER) (test 28.1 pg 25.7-32.2 yhip=410) MEAN CORPUSCULAR HEMOGLOBIN CONC (BEAKER) (test 31.7 GM/DL 32.3-36.5 qnec=701) RED CELL DISTRIBUTION WIDTH (BEAKER) (test 14.7 % 11.6-14.4 bafx=659) PLATELET COUNT (BEAKER) (test bkos=852) 463 K/CU MM 150-450 MEAN PLATELET VOLUME (BEAKER) (test kbdm=822) 10.0 fL 9.4-12.4 NUCLEATED RED BLOOD CELLS (BEAKER) (test 0 /100 WBC 0-0 vfhh=880) POCT-GLUCOSE [id number] 21:21:00 Test Item Value Reference Range Comments POC-GLUCOSE METER (BEAKER) 157 mg/dL 70-110 TESTED AT [address] (test gnki=0033) [place] [id number] POCT-GLUCOSE [id number] 17:05:00 Test Item Value Reference Range Comments POC-GLUCOSE METER (BEAKER) 104 mg/dL 70-110 TESTED AT [address] (test fpuw=9169) [place] [id number] POCT-GLUCOSE [id number] 12:06:00 Test Item Value Reference Range Comments POC-GLUCOSE METER (BEAKER) 177 mg/dL 70-110 TESTED AT [address] (test gpmp=6472) [place] [id number] RAD, CHEST, 1 VIEW, NON [id number] 09:30:00Reason for exam:->pl effusionShould this be performed at the bedside?->YesFINAL REPORT INDICATION: pl effusion TECHNIQUE: Chest radiograph, single view, portable technique. FINDINGS / IMPRESSION: Patient is status post median sternotomy. Heart shadow is prominent but there is no pulmonary venous congestion or edema. No definite pleural effusion demonstrated. Right internal jugular line terminates in the low SVC. Signed: Chris Laraeport Verified Date/Time: 11/10/2017 09:30:24 Reading Location: [facility] B1 C013X Ortho Consult Reading Room POCT-GLUCOSE [id number] 08:04:00 Test Item Value Reference Range Comments POC-GLUCOSE METER (BEAKER) 149 mg/dL 70-110 TESTED AT [facility] [address] [facility] (test rble=2861) [facility] [address] BASIC METABOLIC [id number] 05:39:00 Test Item Value Reference Range Comments SODIUM (BEAKER) (test 133 meq/L 136-145 ksop=370) POTASSIUM (BEAKER) (test 4.5 meq/L 3.5-5.1 sthq=918) CHLORIDE (BEAKER) (test 101 meq/L 98-107 eurz=601) CO2 (BEAKER) (test 23 meq/L 22-29 afab=967) BLOOD UREA NITROGEN 17 mg/dL 7-21 (BEAKER) (test urdd=272) CREATININE (BEAKER) (test 1.06 mg/dL 0.57-1.25 joew=527) GLUCOSE RANDOM (BEAKER) 134 mg/dL 70-105 (test xabl=379) CALCIUM (BEAKER) (test 9.2 mg/dL 8.4-10.2 hefw=711) EGFR (BEAKER) (test mL/min/1.73 sq m INSUFFICIENT CLINICAL DATA kfeq=5245) TO CALCULATE ESTIMATED GFR. [id number] 05:37:00 Test Item Value Reference Range Comments MAGNESIUM (BEAKER) (test fjtu=607) 2.4 mg/dL 1.6-2.6 CBC (HEMOGRAM ONLY)2017-11-10 04:45:00 Test Item Value Reference Range Comments WHITE BLOOD CELL COUNT (BEAKER) (test ovun=739) 14.6 K/ L 3.5-10.5 RED BLOOD CELL COUNT (BEAKER) (test xiuq=185) 2.90 M/ L 4.63-6.08 HEMOGLOBIN (BEAKER) (test uata=159) 8.1 GM/DL 13.7-17.5 HEMATOCRIT (BEAKER) (test evdi=198) 25.9 % 40.1-51.0 MEAN CORPUSCULAR VOLUME (BEAKER) (test vtzv=742) 89.3 fL 79.0-92.2 MEAN CORPUSCULAR HEMOGLOBIN (BEAKER) (test 27.9 pg 25.7-32.2 grnj=552) MEAN CORPUSCULAR HEMOGLOBIN CONC (BEAKER) (test 31.3 GM/DL 32.3-36.5 afgg=414) RED CELL DISTRIBUTION WIDTH (BEAKER) (test 14.8 % 11.6-14.4 uwbi=055) PLATELET COUNT (BEAKER) (test baec=557) 447 K/CU MM 150-450 MEAN PLATELET VOLUME (BEAKER) (test knyt=239) 10.0 fL 9.4-12.4 NUCLEATED RED BLOOD CELLS (BEAKER) (test 0 /100 WBC 0-0 ljdt=904) POCT-GLUCOSE [id number] 21:37:00 Test Item Value Reference Range Comments POC-GLUCOSE METER (BEAKER) 188 mg/dL 70-110 TESTED AT [address] (test ftvb=4489) [place] [id number] POCT-GLUCOSE [id number] 17:48:00 Test Item Value Reference Range Comments POC-GLUCOSE METER (BEAKER) 157 mg/dL 70-110 TESTED AT [address] (test gwmc=7136) [place] [address] RAD, ABDOMEN/KUB, 1 VIEW [id number] 14:04:00Reason for exam:->nauseaFINAL REPORT Developing, three images HISTORY: Abdominal pain COMPARISON: None IMPRESSION:Bowel gas pattern nonobstructive. Lung bases clear. Signed: Harika Garcia Verified Date/Time: 11/09/2017 14:04:02 Reading Location: [facility] C013Y CT Body Reading Room POCT-GLUCOSE [id number] 13:09:00 Test Item Value Reference Range Comments POC-GLUCOSE METER (BEAKER) 145 mg/dL 70-110 TESTED AT [address] (test vxpu=1592) [place] [id number] POCT-GLUCOSE [id number] 11:40:00 Test Item Value Reference Range Comments POC-GLUCOSE METER (BEAKER) 164 mg/dL 70-110 TESTED AT [address] (test ouff=6996) [place] [id number] RAD, CHEST, 1 VIEW, NON [id number] 09:02:00Reason for exam:->pl effusionShould this be performed at the bedside?->YesFINAL REPORT INDICATION: pl effusion TECHNIQUE: Chest radiograph, single view, portable technique. FINDINGS / IMPRESSION: Prominent heart shadow and median sternotomy wires are noted. Improved aeration at the left lung base since November 08. No pulmonary venous congestion, edema, or large pleural effusion present. No consolidation or pneumothorax. Right internal jugular line appears in good position. Signed: Chris Lara MDReport Verified Date/Time: 2017 09:02:58 Reading Location: [facility] C013X Ortho Consult Reading Room POCT-GLUCOSE [id number] 07:49:00 Test Item Value Reference Range Comments POC-GLUCOSE METER (BEAKER) 160 mg/dL 70-110 TESTED AT [facility] [address] [facility] (test gpwl=6881) [facility] [address] BASIC METABOLIC [id number] 07:00:00 Test Item Value Reference Range Comments SODIUM (BEAKER) (test 131 meq/L 136-145 txmj=137) POTASSIUM (BEAKER) (test 4.2 meq/L 3.5-5.1 xwaa=683) CHLORIDE (BEAKER) (test 102 meq/L 98-107 djzd=817) CO2 (BEAKER) (test 20 meq/L 22-29 pxsy=532) BLOOD UREA NITROGEN 18 mg/dL 7-21 (BEAKER) (test nebo=653) CREATININE (BEAKER) (test 1.12 mg/dL 0.57-1.25 zyks=136) GLUCOSE RANDOM (BEAKER) 191 mg/dL 70-105 (test gxzv=956) CALCIUM (BEAKER) (test 8.6 mg/dL 8.4-10.2 whtv=923) EGFR (BEAKER) (test mL/min/1.73 sq m INSUFFICIENT CLINICAL DATA lsqc=7729) TO CALCULATE ESTIMATED GFR. [id number] 06:32:00 Test Item Value Reference Range Comments MAGNESIUM (BEAKER) (test fpjx=455) 1.8 mg/dL 1.6-2.6 CBC (HEMOGRAM ONLY)2017-11-09 03:34:00 Test Item Value Reference Range Comments WHITE BLOOD CELL COUNT (BEAKER) (test olst=883) 14.7 K/ L 3.5-10.5 RED BLOOD CELL COUNT (BEAKER) (test pums=713) 2.74 M/ L 4.63-6.08 HEMOGLOBIN (BEAKER) (test hsns=471) 7.6 GM/DL 13.7-17.5 HEMATOCRIT (BEAKER) (test ufkp=260) 24.7 % 40.1-51.0 MEAN CORPUSCULAR VOLUME (BEAKER) (test ahee=200) 90.1 fL 79.0-92.2 MEAN CORPUSCULAR HEMOGLOBIN (BEAKER) (test 27.7 pg 25.7-32.2 kaqk=590) MEAN CORPUSCULAR HEMOGLOBIN CONC (BEAKER) (test 30.8 GM/DL 32.3-36.5 ahrz=084) RED CELL DISTRIBUTION WIDTH (BEAKER) (test 14.8 % 11.6-14.4 plfk=471) PLATELET COUNT (BEAKER) (test bfwn=469) 390 K/CU MM 150-450 MEAN PLATELET VOLUME (BEAKER) (test wzev=310) 10.2 fL 9.4-12.4 NUCLEATED RED BLOOD CELLS (BEAKER) (test 0 /100 WBC 0-0 dopu=363) POCT-GLUCOSE [id number] 21:35:00 Test Item Value Reference Range Comments POC-GLUCOSE METER (BEAKER) 196 mg/dL 70-110 TESTED AT [address] (test kprq=8975) [facility] [address] RAD, CHEST, 1 VIEW, NON [id number] 17:12:00Reason for exam:->s/p pericardial windowShould this be performed at the bedside?->YesFINAL REPORT INDICATION: s/p pericardial window TECHNIQUE: Chest radiograph, single view, portable technique. FINDINGS / IMPRESSION: Evidence of cardiac or thoracic aortic surgery with stable cardiac and mediastinal contours. Left retrocardiac opacity again demonstrated, probably pleural fluid and related atelectasis. No definite pulmonary venous congestion or edema. No pneumothorax. Right internal jugular line terminates at the cavoatrial junction. Signed: Chris Lara MDReport Verified Date/Time: 11/08/2017 17: 12:47 Reading Location: [address] Ultrasound Reading Room BLOOD GAS, [id number] 17:10:00 Test Item Value Reference Range Comments PH ARTERIAL (BEAKER) (test arlx=726) 7.40 7.35-7.45 PCO2 ARTERIAL (BEAKER) (test nves=008) 37 mmHg 35-45 PO2 ARTERIAL (BEAKER) (test qagx=729) 76 mmHg 80-90 O2 SATURATION ARTERIAL (BEAKER) (test eher=175) 95.3 % 96.0-97.0 HCO3 ARTERIAL (BEAKER) (test dyzl=871) 22 mmol/L 21-29 BASE EXCESS ARTERIAL (BEAKER) (test hpne=355) -2.5 mmol/L -2.0-3.0 PATIENT TEMPERATURE (BEAKER) (test itlw=3457) 37.0 C FIO2 (BEAKER) (test ptbv=4645) 100.0 % BLOOD GAS, [id number] 16:48:00 Test Item Value Reference Range Comments PH ARTERIAL (BEAKER) (test xbsp=760) 7.33 7.35-7.45 PCO2 ARTERIAL (BEAKER) (test aolf=277) 45 mmHg 35-45 PO2 ARTERIAL (BEAKER) (test kbwk=146) 21 mmHg 80-90 O2 SATURATION ARTERIAL (BEAKER) (test xpbt=191) 33.1 % 96.0-97.0 HCO3 ARTERIAL (BEAKER) (test mcxt=511) 23 mmol/L 21-29 BASE EXCESS ARTERIAL (BEAKER) (test eaqb=125) -3.2 mmol/L -2.0-3.0 PATIENT TEMPERATURE (BEAKER) (test ricv=1256) 35.9 C FIO2 (BEAKER) (test bmef=8317) 32.0 % CALCIUM, [id number] 16:42:00 Test Item Value Reference Range Comments CALCIUM IONIZED (BEAKER) (test lvlg=313) 1.09 mmol/L 1.12-1.27 PH, BLOOD (BEAKER) (test bxad=4285) 7.33 GLUCOSE-STAT [id number] 16:41:00 Test Item Value Reference Range Comments GLUCOSE RANDOM (BEAKER) (test ahbw=400) 103 mg/dL 70-110 POTASSIUM-STAT [id number] 16:41:00 Test Item Value Reference Range Comments POTASSIUM (BEAKER) (test pkal=653) 4.5 meq/L 3.6-5.5 HGB/HCT (H&H) - STAT [id number] 16:41:00 Test Item Value Reference Range Comments HEMOGLOBIN (BEAKER) (test esyl=211) 8.5 g/dL 13.0-16.8 HEMATOCRIT (BEAKER) (test atls=602) 25.0 % 40.0-50.0 SODIUM NA-STAT [id number] 16:41:00 Test Item Value Reference Range Comments SODIUM (BEAKER) (test myev=546) 132 meq/L 135-148 BLOOD GAS, [id number] 15:07:00 Test Item Value Reference Range Comments PH ARTERIAL (BEAKER) (test oejw=619) 7.36 7.35-7.45 PCO2 ARTERIAL (BEAKER) (test xufh=177) 42 mmHg 35-45 PO2 ARTERIAL (BEAKER) (test lytq=329) 251 mmHg 80-90 O2 SATURATION ARTERIAL (BEAKER) (test foom=882) 99.5 % 96.0-97.0 HCO3 ARTERIAL (BEAKER) (test zgff=727) 23 mmol/L 21-29 BASE EXCESS ARTERIAL (BEAKER) (test udqk=629) -2.0 mmol/L -2.0-3.0 PATIENT TEMPERATURE (BEAKER) (test qbkt=4675) 36.7 C FIO2 (BEAKER) (test oqsw=1195) 100.0 % GLUCOSE-STAT [id number] 15:07:00 Test Item Value Reference Range Comments GLUCOSE RANDOM (BEAKER) (test aosn=634) 116 mg/dL 70-110 HGB/HCT (H&H) - STAT [id number] 15:07:00 Test Item Value Reference Range Comments HEMOGLOBIN (BEAKER) (test bxgp=363) 9.2 g/dL 13.0-16.8 HEMATOCRIT (BEAKER) (test hpac=130) 27.0 % 40.0-50.0 SODIUM NA-STAT [id number] 15:07:00 Test Item Value Reference Range Comments SODIUM (BEAKER) (test kxse=619) 130 meq/L 135-148 CALCIUM, [id number] 15:07:00 Test Item Value Reference Range Comments CALCIUM IONIZED (BEAKER) (test ymur=002) 1.11 mmol/L 1.12-1.27 PH, BLOOD (BEAKER) (test remv=1911) 7.36 POTASSIUM-STAT [id number] 15:06:00 Test Item Value Reference Range Comments POTASSIUM (BEAKER) (test vmwy=317) 4.6 meq/L 3.6-5.5 POCT-GLUCOSE [id number] 11:52:00 Test Item Value Reference Range Comments POC-GLUCOSE METER (BEAKER) 137 mg/dL 70-110 TESTED AT [address] (test ygod=8512) [place] [address] POCT-GLUCOSE [id number] 07:53:00 Test Item Value Reference Range Comments POC-GLUCOSE METER (BEAKER) 143 mg/dL 70-110 TESTED AT [address] (test xrqa=6217) [place] [address] BASIC METABOLIC [id number] 02:49:00 Test Item Value Reference Range Comments SODIUM (BEAKER) (test 132 meq/L 136-145 aoti=446) POTASSIUM (BEAKER) (test 4.2 meq/L 3.5-5.1 axkr=034) CHLORIDE (BEAKER) (test 101 meq/L 98-107 fklv=595) CO2 (BEAKER) (test 22 meq/L 22-29 laep=198) BLOOD UREA NITROGEN 20 mg/dL 7-21 (BEAKER) (test bqvh=698) CREATININE (BEAKER) (test 1.15 mg/dL 0.57-1.25 cxmp=367) GLUCOSE RANDOM (BEAKER) 232 mg/dL 70-105 (test fgke=545) CALCIUM (BEAKER) (test 9.1 mg/dL 8.4-10.2 lmzh=229) EGFR (BEAKER) (test mL/min/1.73 sq m INSUFFICIENT CLINICAL DATA aazs=1730) TO CALCULATE ESTIMATED GFR. [id number] 02:40:00 Test Item Value Reference Range Comments MAGNESIUM (BEAKER) (test woym=673) 1.9 mg/dL 1.6-2.6 PT/[id number] 02:28:00 Test Item Value Reference Range Comments PROTIME (BEAKER) (test rrng=521) 15.7 seconds 11.7-14.7 INR (BEAKER) (test gieo=492) 1.3 <=5.9 PARTIAL THROMBOPLASTIN TIME (BEAKER) (test 38.4 seconds 22.5-36.0 jrpt=366) RECOMMENDED COUMADIN/WARFARIN INR THERAPY RANGESSTANDARD DOSE: 2.0 - 3.0 Includes: PROPHYLAXIS forvenous thrombosis, systemic embolization; TREATMENT for venous thrombosis and/or pulmonary embolus.HIGH RISK: Target INR is 2.5-3.5 for patients with mechanical heart valves.CBC (HEMOGRAM ONLY)2017-11-08 02:19:00 Test Item Value Reference Range Comments WHITE BLOOD CELL COUNT (BEAKER) (test hzox=063) 15.8 K/ L 3.5-10.5 RED BLOOD CELL COUNT (BEAKER) (test arbj=133) 2.89 M/ L 4.63-6.08 HEMOGLOBIN (BEAKER) (test unsd=790) 8.2 GM/DL 13.7-17.5 HEMATOCRIT (BEAKER) (test dpca=420) 25.7 % 40.1-51.0 MEAN CORPUSCULAR VOLUME (BEAKER) (test ydmx=766) 88.9 fL 79.0-92.2 MEAN CORPUSCULAR HEMOGLOBIN (BEAKER) (test 28.4 pg 25.7-32.2 vinu=252) MEAN CORPUSCULAR HEMOGLOBIN CONC (BEAKER) (test 31.9 GM/DL 32.3-36.5 qvet=115) RED CELL DISTRIBUTION WIDTH (BEAKER) (test 14.6 % 11.6-14.4 yxhm=033) PLATELET COUNT (BEAKER) (test cqnz=460) 398 K/CU MM 150-450 MEAN PLATELET VOLUME (BEAKER) (test yxto=143) 10.2 fL 9.4-12.4 NUCLEATED RED BLOOD CELLS (BEAKER) (test 0 /100 WBC 0-0 edgo=177) POCT-GLUCOSE [id number] 22:01:00 Test Item Value Reference Range Comments POC-GLUCOSE METER (BEAKER) 258 mg/dL 70-110 TESTED AT [facility] [address] [facility] (test nkio=8103) [facility] [address] POCT-GLUCOSE [id number] 17:46:00 Test Item Value Reference Range Comments POC-GLUCOSE METER (BEAKER) 189 mg/dL 70-110 TESTED AT [address] (test peld=7953) [place] [id number] POCT-GLUCOSE [id number] 16:58:00 Test Item Value Reference Range Comments POC-GLUCOSE METER (BEAKER) 218 mg/dL 70-110 TESTED AT [address] (test eclo=8711) [place] [address] POCT-GLUCOSE [id number] 13:09:00 Test Item Value Reference Range Comments POC-GLUCOSE METER (BEAKER) 120 mg/dL 70-110 TESTED AT [address] (test sjrm=0624) [place] [address] POCT-GLUCOSE [id number] 13:01:00 Test Item Value Reference Range Comments POC-GLUCOSE METER (BEAKER) 138 mg/dL 70-110 TESTED AT [address] (test iqxt=7985) [place] [address] RAD, CHEST, 1 VIEW, NON [id number] 09:47:00Reason for exam:->s/p CABGFINAL REPORT INDICATION: s/p CABG TECHNIQUE: Chest radiograph, single view, portable technique. FINDINGS / IMPRESSION: Evidence of coronary artery bypass surgery. No pulmonary edema, apical cap, or pneumothorax demonstrated. Right internal jugular line terminates at the cavoatrial junction. In summary, no evidence of postoperative complication. Signed: Chris Lara MDReportVerified Date/Time: 11/07/2017 09:47:42 Reading Location: [facility] Reading Room POCT-GLUCOSE [id number] 08:48:00 Test Item Value Reference Range Comments POC-GLUCOSE METER (BEAKER) 165 mg/dL 70-110 TESTED AT [address] (test knsi=7851) [place] [address] BASIC METABOLIC [id number] 06:08:00 Test Item Value Reference Range Comments SODIUM (BEAKER) (test 132 meq/L 136-145 bthg=075) POTASSIUM (BEAKER) (test 4.3 meq/L 3.5-5.1 eftt=386) CHLORIDE (BEAKER) (test 101 meq/L 98-107 xflr=849) CO2 (BEAKER) (test 23 meq/L 22-29 uxhz=354) BLOOD UREA NITROGEN 20 mg/dL 7-21 (BEAKER) (test yxja=939) CREATININE (BEAKER) (test 0.95 mg/dL 0.57-1.25 phcs=830) GLUCOSE RANDOM (BEAKER) 143 mg/dL 70-105 (test hozp=263) CALCIUM (BEAKER) (test 8.9 mg/dL 8.4-10.2 bphe=924) EGFR (BEAKER) (test mL/min/1.73 sq m INSUFFICIENT CLINICAL DATA aphs=0514) TO CALCULATE ESTIMATED GFR. [id number] 06:07:00 Test Item Value Reference Range Comments MAGNESIUM (BEAKER) (test qhbv=000) 2.1 mg/dL 1.6-2.6 POCT-GLUCOSE [id number] 21:41:00 Test Item Value Reference Range Comments POC-GLUCOSE METER (BEAKER) 170 mg/dL 70-110 TESTED AT [address] (test aosg=4274) [place] [address] RAD, CHEST, 1 VIEW, NON [id number] 07:57:00Reason for exam:->s/p CABGFINAL REPORT Chest one view compared to November 05 Discussion: There is improved aeration of the lower lungs with resolution of opacity on the right and minimal residual ill-defined opacity in the left. Mild cardiac prominence. No gross effusion or pneumothorax. Right sided central line unchanged. Signed: Natalia Richardseport Verified Date/Time: 11/06/2017 07:57: 11 Reading Location: [facility] Radiology Reading Room POCT-GLUCOSE [id number] 07:07:00 Test Item Value Reference Range Comments POC-GLUCOSE METER (BEAKER) 131 mg/dL 70-110 TESTED AT [address] (test melq=4674) [place] [address] BASIC METABOLIC [id number] 06:01:00 Test Item Value Reference Range Comments SODIUM (BEAKER) (test 134 meq/L 136-145 oruv=752) POTASSIUM (BEAKER) (test 3.8 meq/L 3.5-5.1 roku=281) CHLORIDE (BEAKER) (test 101 meq/L 98-107 sayn=023) CO2 (BEAKER) (test 23 meq/L 22-29 dzuc=711) BLOOD UREA NITROGEN 21 mg/dL 7-21 (BEAKER) (test swtq=181) CREATININE (BEAKER) (test 0.92 mg/dL 0.57-1.25 wvak=313) GLUCOSE RANDOM (BEAKER) 121 mg/dL 70-105 (test bpxt=574) CALCIUM (BEAKER) (test 9.1 mg/dL 8.4-10.2 lveg=877) EGFR (BEAKER) (test mL/min/1.73 sq m INSUFFICIENT CLINICAL DATA xnat=7499) TO CALCULATE ESTIMATED GFR. POCT-GLUCOSE [id number] 21:29:00 Test Item Value Reference Range Comments POC-GLUCOSE METER (BEAKER) 96 mg/dL 70-110 TESTED AT [address] (test lstf=7818) [facility] [id number] POCT-GLUCOSE [id number] 16:25:00 Test Item Value Reference Range Comments POC-GLUCOSE METER (BEAKER) 226 mg/dL 70-110 TESTED AT [address] (test reii=1446) [facility] [address] POCT-GLUCOSE [id number] 12:13:00 Test Item Value Reference Range Comments POC-GLUCOSE METER (BEAKER) 149 mg/dL 70-110 TESTED AT [address] (test bkto=2504) [facility] [address] RAD, CHEST, 1 VIEW, NON [id number] 08:21:00Reason for exam:->s/p CABGFINAL REPORT TECHNIQUE: Frontal chest radiograph dated 11/05/2017. CLINICAL HISTORY: S/P CABG COMPARISON STUDY: Chest radiograph dated 11/04/2017 IMPRESSION:Right-sided vascular line is unchanged in position. There is a stable, small left pleural effusion with associated atelectasis. Underlying pneumonia in the left lung base should be excluded clinically. Right lung is clear. No pneumothorax. Cardiomediastinal silhouette is stable in size. And there is pulmonary vascular congestion. No fracture. Midline sternotomy wires are intact and well aligned. No fracture. Signed: Modesto Portillo MDReport Verified Date/Time: 11/05/2017 08:21:37 Reading Location: [facility] Radiology ReadingRoom POCT-GLUCOSE [id number] 07:37:00 Test Item Value Reference Range Comments POC-GLUCOSE METER (BEAKER) 132 mg/dL 70-110 TESTED AT [facility] [address] [facility] (test gnsd=0326) [facility] [address] BASIC METABOLIC [id number] 04:42:00 Test Item Value Reference Range Comments SODIUM (BEAKER) (test 133 meq/L 136-145 hojm=436) POTASSIUM (BEAKER) (test 3.6 meq/L 3.5-5.1 fltq=205) CHLORIDE (BEAKER) (test 101 meq/L 98-107 ldey=966) CO2 (BEAKER) (test 23 meq/L 22-29 dbxl=200) BLOOD UREA NITROGEN 23 mg/dL 7-21 (BEAKER) (test itys=358) CREATININE (BEAKER) (test 0.92 mg/dL 0.57-1.25 yrtt=672) GLUCOSE RANDOM (BEAKER) 101 mg/dL 70-105 (test vlem=637) CALCIUM (BEAKER) (test 8.6 mg/dL 8.4-10.2 jhwh=969) EGFR (BEAKER) (test mL/min/1.73 sq m INSUFFICIENT CLINICAL DATA ejbu=5462) TO CALCULATE ESTIMATED GFR. CBC W/PLT COUNT & AUTO [id number] 04:14:00 Test Item Value Reference Range Comments WHITE BLOOD CELL COUNT (BEAKER) (test guhh=211) 12.5 K/ L 3.5-10.5 RED BLOOD CELL COUNT (BEAKER) (test pxcg=915) 3.09 M/ L 4.63-6.08 HEMOGLOBIN (BEAKER) (test rsbr=924) 8.8 GM/DL 13.7-17.5 HEMATOCRIT (BEAKER) (test bdsj=179) 26.8 % 40.1-51.0 MEAN CORPUSCULAR VOLUME (BEAKER) (test whby=916) 86.7 fL 79.0-92.2 MEAN CORPUSCULAR HEMOGLOBIN (BEAKER) (test 28.5 pg 25.7-32.2 pmyj=663) MEAN CORPUSCULAR HEMOGLOBIN CONC (BEAKER) (test 32.8 GM/DL 32.3-36.5 eglp=518) RED CELL DISTRIBUTION WIDTH (BEAKER) (test 14.1 % 11.6-14.4 yype=304) PLATELET COUNT (BEAKER) (test jkka=445) 315 K/CU MM 150-450 MEAN PLATELET VOLUME (BEAKER) (test wdme=530) 10.9 fL 9.4-12.4 NUCLEATED RED BLOOD CELLS (BEAKER) (test 1 /100 WBC 0-0 vjij=632) NEUTROPHILS RELATIVE PERCENT (BEAKER) (test 62 % ghcs=811) LYMPHOCYTES RELATIVE PERCENT (BEAKER) (test 20 % mijf=689) MONOCYTES RELATIVE PERCENT (BEAKER) (test 12 % eogi=160) EOSINOPHILS RELATIVE PERCENT (BEAKER) (test 3 % uqxb=419) BASOPHILS RELATIVE PERCENT (BEAKER) (test 1 % wygy=501) NEUTROPHILS ABSOLUTE COUNT (BEAKER) (test 7.78 K/ L 1.78-5.38 ojbq=512) LYMPHOCYTES ABSOLUTE COUNT (BEAKER) (test 2.52 K/ L 1.32-3.57 axrn=433) MONOCYTES ABSOLUTE COUNT (BEAKER) (test 1.46 K/ L 0.30-0.82 pylv=718) EOSINOPHILS ABSOLUTE COUNT (BEAKER) (test 0.35 K/ L 0.04-0.54 iwrk=004) BASOPHILS ABSOLUTE COUNT (BEAKER) (test 0.07 K/ L 0.01-0.08 jinh=093) IMMATURE GRANULOCYTES-RELATIVE PERCENT (BEAKER) 3 % 0-1 (test ueui=7543) POCT-GLUCOSE [id number] 21:07:00 Test Item Value Reference Range Comments POC-GLUCOSE METER (BEAKER) 150 mg/dL 70-110 TESTED AT [address] (test hkvi=2397) [facility] [address] POCT-GLUCOSE [id number] 17:19:00 Test Item Value Reference Range Comments POC-GLUCOSE METER (BEAKER) 216 mg/dL 70-110 TESTED AT [address] (test dlpo=8957) [facility] [address] RAD, CHEST, 1 VIEW, NON [id number] 12:23:00Reason for exam:->CABGFINAL REPORT CHEST ONE VIEW HISTORY: Status post CABG COMPARISON: 11/02/2017 FINDINGS: Single portable AP examination of the chest was performed. There is mild atelectasis at the left lung base, unchanged. Small left pleural effusion is also unchanged. Right lung clear. No pneumothorax. The cardiac shadow is mildly enlarged, unchanged. Sternotomy wires are present. Right jugularcatheter tip is in the SVC region. Signed: Chacorta Mccord MDReport Verified Date/Time: 11/04/2017 12:23:52 Reading Location: [facility] C013T Transitional Reading Room POCT-GLUCOSE [id number] 12:20:00 Test Item Value Reference Range Comments POC-GLUCOSE METER (BEAKER) 174 mg/dL 70-110 TESTED AT [facility] [address] [place] [address] (test jcza=6110) [facility] [address] BASIC METABOLIC [id number] 09:58:00 Test Item Value Reference Range Comments SODIUM (BEAKER) (test 130 meq/L 136-145 jswx=797) POTASSIUM (BEAKER) (test 3.9 meq/L 3.5-5.1 sdbm=032) CHLORIDE (BEAKER) (test 99 meq/L 98-107 cjpt=508) CO2 (BEAKER) (test 20 meq/L 22-29 lxka=344) BLOOD UREA NITROGEN 25 mg/dL 7-21 (BEAKER) (test lnis=915) CREATININE (BEAKER) (test 0.97 mg/dL 0.57-1.25 abwp=152) GLUCOSE RANDOM (BEAKER) 199 mg/dL 70-105 (test dpbi=963) CALCIUM (BEAKER) (test 8.6 mg/dL 8.4-10.2 rybt=978) EGFR (BEAKER) (test mL/min/1.73 sq m INSUFFICIENT CLINICAL DATA xgsw=0806) TO CALCULATE ESTIMATED GFR. BASIC METABOLIC [id number] 04:36:00 Test Item Value Reference Range Comments SODIUM (BEAKER) (test 132 meq/L 136-145 ykom=899) POTASSIUM (BEAKER) (test 3.8 meq/L 3.5-5.1 qmop=782) CHLORIDE (BEAKER) (test 101 meq/L 98-107 lwbf=957) CO2 (BEAKER) (test 22 meq/L 22-29 edqj=008) BLOOD UREA NITROGEN 24 mg/dL 7-21 (BEAKER) (test aqzy=119) CREATININE (BEAKER) (test 0.88 mg/dL 0.57-1.25 ptnf=026) GLUCOSE RANDOM (BEAKER) 89 mg/dL 70-105 (test ibpa=819) CALCIUM (BEAKER) (test 9.0 mg/dL 8.4-10.2 ptte=565) EGFR (BEAKER) (test mL/min/1.73 sq m INSUFFICIENT CLINICAL DATA udyw=7225) TO CALCULATE ESTIMATED GFR. CBC W/PLT COUNT & AUTO [id number] 04:12:00 Test Item Value Reference Range Comments WHITE BLOOD CELL COUNT (BEAKER) (test fgjp=720) 14.2 K/ L 3.5-10.5 RED BLOOD CELL COUNT (BEAKER) (test uofh=258) 3.16 M/ L 4.63-6.08 HEMOGLOBIN (BEAKER) (test jfwl=213) 8.8 GM/DL 13.7-17.5 HEMATOCRIT (BEAKER) (test upmt=801) 27.4 % 40.1-51.0 MEAN CORPUSCULAR VOLUME (BEAKER) (test maxz=445) 86.7 fL 79.0-92.2 MEAN CORPUSCULAR HEMOGLOBIN (BEAKER) (test 27.8 pg 25.7-32.2 wewn=795) MEAN CORPUSCULAR HEMOGLOBIN CONC (BEAKER) (test 32.1 GM/DL 32.3-36.5 lrbt=755) RED CELL DISTRIBUTION WIDTH (BEAKER) (test 14.0 % 11.6-14.4 wekn=589) PLATELET COUNT (BEAKER) (test qojw=734) 247 K/CU MM 150-450 MEAN PLATELET VOLUME (BEAKER) (test oifr=139) 11.2 fL 9.4-12.4 NUCLEATED RED BLOOD CELLS (BEAKER) (test 1 /100 WBC 0-0 itgo=874) NEUTROPHILS RELATIVE PERCENT (BEAKER) (test 66 % yxug=297) LYMPHOCYTES RELATIVE PERCENT (BEAKER) (test 20 % yjts=198) MONOCYTES RELATIVE PERCENT (BEAKER) (test 11 % wnvq=521) EOSINOPHILS RELATIVE PERCENT (BEAKER) (test 2 % gxys=796) BASOPHILS RELATIVE PERCENT (BEAKER) (test 0 % fogk=916) NEUTROPHILS ABSOLUTE COUNT (BEAKER) (test 9.42 K/ L 1.78-5.38 qiks=931) LYMPHOCYTES ABSOLUTE COUNT (BEAKER) (test 2.80 K/ L 1.32-3.57 hxgc=516) MONOCYTES ABSOLUTE COUNT (BEAKER) (test 1.55 K/ L 0.30-0.82 qker=065) EOSINOPHILS ABSOLUTE COUNT (BEAKER) (test 0.22 K/ L 0.04-0.54 bzfi=650) BASOPHILS ABSOLUTE COUNT (BEAKER) (test 0.06 K/ L 0.01-0.08 wyeu=520) IMMATURE GRANULOCYTES-RELATIVE PERCENT (BEAKER) 1 % 0-1 (test obuv=0097) BASIC METABOLIC [id number] 00:25:00 Test Item Value Reference Range Comments SODIUM (BEAKER) (test 129 meq/L 136-145 idkb=850) POTASSIUM (BEAKER) (test 3.8 meq/L 3.5-5.1 mqit=815) CHLORIDE (BEAKER) (test 99 meq/L 98-107 gwuf=911) CO2 (BEAKER) (test 21 meq/L 22-29 jevh=162) BLOOD UREA NITROGEN 26 mg/dL 7-21 (BEAKER) (test sczi=909) CREATININE (BEAKER) (test 0.93 mg/dL 0.57-1.25 hetm=726) GLUCOSE RANDOM (BEAKER) 87 mg/dL 70-105 (test sevm=796) CALCIUM (BEAKER) (test 8.6 mg/dL 8.4-10.2 lsek=250) EGFR (BEAKER) (test mL/min/1.73 sq m INSUFFICIENT CLINICAL DATA dgaz=1185) TO CALCULATE ESTIMATED GFR. POCT-GLUCOSE [id number] 21:20:00 Test Item Value Reference Range Comments POC-GLUCOSE METER (BEAKER) 138 mg/dL 70-110 TESTED AT [facility] [address] [facility] (test ubmc=5635) [facility] [address] BASIC METABOLIC [id number] 20:36:00 Test Item Value Reference Range Comments SODIUM (BEAKER) (test 127 meq/L 136-145 rjxf=827) POTASSIUM (BEAKER) (test 3.9 meq/L 3.5-5.1 gglz=350) CHLORIDE (BEAKER) (test 97 meq/L 98-107 slkp=478) CO2 (BEAKER) (test 21 meq/L 22-29 mkii=169) BLOOD UREA NITROGEN 28 mg/dL 7-21 (BEAKER) (test kurw=782) CREATININE (BEAKER) (test 1.06 mg/dL 0.57-1.25 zklc=537) GLUCOSE RANDOM (BEAKER) 138 mg/dL 70-105 (test potz=179) CALCIUM (BEAKER) (test 8.5 mg/dL 8.4-10.2 jzqk=467) EGFR (BEAKER) (test mL/min/1.73 sq m INSUFFICIENT CLINICAL DATA qzmv=4729) TO CALCULATE ESTIMATED GFR. POCT-GLUCOSE [id number] 17:41:00 Test Item Value Reference Range Comments POC-GLUCOSE METER (BEAKER) 221 mg/dL 70-110 TESTED AT [facility] [address] [place] [address] (test bmje=3393) [facility] [address] BASIC METABOLIC [id number] 15:35:00 Test Item Value Reference Range Comments SODIUM (BEAKER) (test 127 meq/L 136-145 ivhm=522) POTASSIUM (BEAKER) (test 3.9 meq/L 3.5-5.1 pbzx=672) CHLORIDE (BEAKER) (test 97 meq/L 98-107 ager=597) CO2 (BEAKER) (test 21 meq/L 22-29 pelt=638) BLOOD UREA NITROGEN 27 mg/dL 7-21 (BEAKER) (test krwy=896) CREATININE (BEAKER) (test 0.99 mg/dL 0.57-1.25 duqu=774) GLUCOSE RANDOM (BEAKER) 109 mg/dL 70-105 (test wuqk=565) CALCIUM (BEAKER) (test 8.8 mg/dL 8.4-10.2 eeeq=938) EGFR (BEAKER) (test mL/min/1.73 sq m INSUFFICIENT CLINICAL DATA sbio=2294) TO CALCULATE ESTIMATED GFR. PUL PERF IMAGING, PARTIC, [id number] 15:16:00FINAL REPORT PROCEDURE: V/Q LUNG SCAN CPT CODE: 49288 INDICATION: Dyspnea, cardiac origin suspected, respiratory insufficiency, status post CABG October 31, 2007PROTOCOL: 10.8 mCi of Xe-133 gas was administered [...] acute pulmonary embolization. Signed: Devyn Del Cid MDReport Verified Date/Time: 11/03/2017 15: 16:20 POCT-GLUCOSE [id number] 12:26:00 Test Item Value Reference Range Comments POC-GLUCOSE METER (BEAKER) 173 mg/dL 70-110 TESTED AT [address] (test wdje=8376) [place] [address] BASIC METABOLIC [id number] 11:10:00 Test Item Value Reference Range Comments SODIUM (BEAKER) (test 124 meq/L 136-145 umtv=318) POTASSIUM (BEAKER) (test 4.1 meq/L 3.5-5.1 qryz=126) CHLORIDE (BEAKER) (test 94 meq/L 98-107 ofef=291) CO2 (BEAKER) (test 22 meq/L 22-29 qpdl=047) BLOOD UREA NITROGEN 27 mg/dL 7-21 (BEAKER) (test czxr=338) CREATININE (BEAKER) (test 1.10 mg/dL 0.57-1.25 zxtl=372) GLUCOSE RANDOM (BEAKER) 246 mg/dL 70-105 (test juut=421) CALCIUM (BEAKER) (test 8.4 mg/dL 8.4-10.2 cqrp=076) EGFR (BEAKER) (test mL/min/1.73 sq m INSUFFICIENT CLINICAL DATA ixss=7278) TO CALCULATE ESTIMATED GFR. POCT-GLUCOSE [id number] 08:46:00 Test Item Value Reference Range Comments POC-GLUCOSE METER (BEAKER) 146 mg/dL 70-110 TESTED AT [address] (test rsvz=4742) [place] [id number] OSMOLALITY, [id number] 08:04:00 Test Item Value Reference Range Comments OSMOLALITY, SERUM (BEAKER) (test luvx=295) 270 mOsm/kg 275-295 OSMOLALITY, [id number] 08:04:00 Test Item Value Reference Range Comments OSMOLALITY URINE (BEAKER) (test nhbm=489) 290 mOsm/kg 40-1400 CBC W/PLT COUNT & AUTO [id number] 07:43:00 Test Item Value Reference Range Comments WHITE BLOOD CELL COUNT (BEAKER) (test egpy=945) 16.4 K/ L 3.5-10.5 RED BLOOD CELL COUNT (BEAKER) (test upyx=301) 3.06 M/ L 4.63-6.08 HEMOGLOBIN (BEAKER) (test tkyf=349) 8.5 GM/DL 13.7-17.5 HEMATOCRIT (BEAKER) (test hffp=199) 26.2 % 40.1-51.0 MEAN CORPUSCULAR VOLUME (BEAKER) (test hbwy=904) 85.6 fL 79.0-92.2 MEAN CORPUSCULAR HEMOGLOBIN (BEAKER) (test 27.8 pg 25.7-32.2 awof=292) MEAN CORPUSCULAR HEMOGLOBIN CONC (BEAKER) (test 32.4 GM/DL 32.3-36.5 vgyp=187) RED CELL DISTRIBUTION WIDTH (BEAKER) (test 13.7 % 11.6-14.4 uomh=379) PLATELET COUNT (BEAKER) (test jhms=366) 179 K/CU MM 150-450 MEAN PLATELET VOLUME (BEAKER) (test itnz=299) 12.1 fL 9.4-12.4 NUCLEATED RED BLOOD CELLS (BEAKER) (test 0 /100 WBC 0-0 uajy=093) (CELLAVISION MANUAL DIFF)2017-11-03 07:43:00 Test Item Value Reference Range Comments NEUTROPHILS - REL (CELLAVISION)(BEAKER) (test 69 % grkh=4108) LYMPHOCYTES - REL (CELLAVISION)(BEAKER) (test 15 % frhx=1376) MONOCYTES - REL (CELLAVISION)(BEAKER) (test 7 % uoyr=8086) BANDS - REL (CELLAVISION)(BEAKER) (test 9 % 0-10 pwqz=2703) NEUTROPHILS - ABS (CELLAVISION)(BEAKER) (test 11.32 K/ul 1.78-5.38 rozq=1385) LYMPHOCYTES - ABS (CELLAVISION)(BEAKER) (test 2.46 K/ul 1.32-3.57 obca=9224) MONOCYTES - ABS (CELLAVISION)(BEAKER) (test 1.15 K/uL 0.30-0.82 xoxh=1068) BANDS - ABS (CELLAVISION)(BEAKER) (test 1.48 K/uL 0.00-0.80 oibl=3347) TOTAL COUNTED (BEAKER) (test gmeo=2434) 100 MANUAL NRBC PER 100 CELLS (BEAKER) (test 1 /100 WBC 0-0 iwog=7143) WBC MORPHOLOGY (BEAKER) (test mpep=325) Normal PLT MORPHOLOGY (BEAKER) (test cdrd=188) Normal POLYCHROMATOPHILLIC RBCS(BEAKER) (test ijyi=641) 1+ few ANISOCYTOSIS (BEAKER) (test ococ=379) 1+ few ARTIFACT (CELLAVISION)(BEAKER) (test rczq=3873) Present PLATELET CONCENTRATION (CELLAVISION)(BEAKER) Adequate (test rmsm=2670) Received comment: User comments: Slide comments:BASIC METABOLIC [id number] 06:27:00 Test Item Value Reference Range Comments SODIUM (BEAKER) (test 126 meq/L 136-145 jxoq=087) POTASSIUM (BEAKER) (test 3.9 meq/L 3.5-5.1 rrne=869) CHLORIDE (BEAKER) (test 97 meq/L 98-107 hvve=168) CO2 (BEAKER) (test 21 meq/L 22-29 iudv=178) BLOOD UREA NITROGEN 28 mg/dL 7-21 (BEAKER) (test yajo=196) CREATININE (BEAKER) (test 0.99 mg/dL 0.57-1.25 hsgs=371) GLUCOSE RANDOM (BEAKER) 128 mg/dL 70-105 (test xoek=467) CALCIUM (BEAKER) (test 8.6 mg/dL 8.4-10.2 kgzl=746) EGFR (BEAKER) (test mL/min/1.73 sq m INSUFFICIENT CLINICAL DATA ddpe=6343) TO CALCULATE ESTIMATED GFR. SODIUM, RANDOM [id number] 06:14:00 Test Item Value Reference Range Comments SODIUM URINE (BEAKER) (test cyzj=321) < meq/L Reference Range: No NormalsTSH/FREE T4 IF [id number] 05:11:00 Test Item Value Reference Range Comments THYROID STIMULATING HORMONE (BEAKER) (test 0.82 uIU/mL 0.35-4.94 fids=695) BASIC METABOLIC [id number] 04:36:00 Test Item Value Reference Range Comments SODIUM (BEAKER) (test 127 meq/L 136-145 oqgv=510) POTASSIUM (BEAKER) (test 4.0 meq/L 3.5-5.1 zcxx=841) CHLORIDE (BEAKER) (test 97 meq/L 98-107 zgnw=648) CO2 (BEAKER) (test 21 meq/L 22-29 hboy=689) BLOOD UREA NITROGEN 28 mg/dL 7-21 (BEAKER) (test zard=049) CREATININE (BEAKER) (test 0.97 mg/dL 0.57-1.25 dywt=461) GLUCOSE RANDOM (BEAKER) 119 mg/dL 70-105 (test dbvs=857) CALCIUM (BEAKER) (test 8.7 mg/dL 8.4-10.2 tjos=497) EGFR (BEAKER) (test mL/min/1.73 sq m INSUFFICIENT CLINICAL DATA aqku=2594) TO CALCULATE ESTIMATED GFR. BASIC METABOLIC [id number] 02:40:00 Test Item Value Reference Range Comments SODIUM (BEAKER) (test 126 meq/L 136-145 zysm=168) POTASSIUM (BEAKER) (test 4.0 meq/L 3.5-5.1 lkav=945) CHLORIDE (BEAKER) (test 96 meq/L 98-107 swpz=843) CO2 (BEAKER) (test 20 meq/L 22-29 yski=374) BLOOD UREA NITROGEN 29 mg/dL 7-21 (BEAKER) (test kvwl=461) CREATININE (BEAKER) (test 1.03 mg/dL 0.57-1.25 pefz=427) GLUCOSE RANDOM (BEAKER) 126 mg/dL 70-105 (test ypdb=554) CALCIUM (BEAKER) (test 8.7 mg/dL 8.4-10.2 wtll=576) EGFR (BEAKER) (test mL/min/1.73 sq m INSUFFICIENT CLINICAL DATA dyid=4013) TO CALCULATE ESTIMATED GFR. BASIC METABOLIC [id number] 01:03:00 Test Item Value Reference Range Comments SODIUM (BEAKER) (test 125 meq/L 136-145 rzad=142) POTASSIUM (BEAKER) (test 3.9 meq/L 3.5-5.1 phwx=645) CHLORIDE (BEAKER) (test 95 meq/L 98-107 revw=648) CO2 (BEAKER) (test 20 meq/L 22-29 yumq=925) BLOOD UREA NITROGEN 29 mg/dL 7-21 (BEAKER) (test rwui=263) CREATININE (BEAKER) (test 1.10 mg/dL 0.57-1.25 wfns=355) GLUCOSE RANDOM (BEAKER) 134 mg/dL 70-105 (test jsab=409) CALCIUM (BEAKER) (test 8.3 mg/dL 8.4-10.2 tbnc=573) EGFR (BEAKER) (test mL/min/1.73 sq m INSUFFICIENT CLINICAL DATA lase=0030) TO CALCULATE ESTIMATED GFR. BASIC METABOLIC [id number] 23:48:00 Test Item Value Reference Range Comments SODIUM (BEAKER) (test 124 meq/L 136-145 fotn=284) POTASSIUM (BEAKER) (test 3.8 meq/L 3.5-5.1 ndfu=141) CHLORIDE (BEAKER) (test 94 meq/L 98-107 ctrc=123) CO2 (BEAKER) (test 19 meq/L 22-29 lnqj=563) BLOOD UREA NITROGEN 30 mg/dL 7-21 (BEAKER) (test fjis=836) CREATININE (BEAKER) (test 1.12 mg/dL 0.57-1.25 bqcz=886) GLUCOSE RANDOM (BEAKER) 147 mg/dL 70-105 (test bdcq=850) CALCIUM (BEAKER) (test 8.4 mg/dL 8.4-10.2 kuqm=946) EGFR (BEAKER) (test mL/min/1.73 sq m INSUFFICIENT CLINICAL DATA fxyc=5845) TO CALCULATE ESTIMATED GFR. POCT-GLUCOSE [id number] 22:10:00 Test Item Value Reference Range Comments POC-GLUCOSE METER (BEAKER) 176 mg/dL 70-110 TESTED AT [address] (test gily=2464) [facility] [address] BASIC METABOLIC [id number] 21:04:00 Test Item Value Reference Range Comments SODIUM (BEAKER) (test 125 meq/L 136-145 psdc=560) POTASSIUM (BEAKER) (test 3.9 meq/L 3.5-5.1 mtqh=090) CHLORIDE (BEAKER) (test 95 meq/L 98-107 qvia=299) CO2 (BEAKER) (test 19 meq/L 22-29 nder=356) BLOOD UREA NITROGEN 27 mg/dL 7-21 (BEAKER) (test zwcl=718) CREATININE (BEAKER) (test 1.08 mg/dL 0.57-1.25 zxjt=862) GLUCOSE RANDOM (BEAKER) 121 mg/dL 70-105 (test offt=057) CALCIUM (BEAKER) (test 8.5 mg/dL 8.4-10.2 ncdc=765) EGFR (BEAKER) (test mL/min/1.73 sq m INSUFFICIENT CLINICAL DATA jmei=9913) TO CALCULATE ESTIMATED GFR. BASIC METABOLIC [id number] 19:10:00 Test Item Value Reference Range Comments SODIUM (BEAKER) (test 125 meq/L 136-145 bqon=542) POTASSIUM (BEAKER) (test 3.9 meq/L 3.5-5.1 ctqw=781) CHLORIDE (BEAKER) (test 94 meq/L 98-107 hdoa=282) CO2 (BEAKER) (test 21 meq/L 22-29 uujj=692) BLOOD UREA NITROGEN 26 mg/dL 7-21 (BEAKER) (test vres=205) CREATININE (BEAKER) (test 1.06 mg/dL 0.57-1.25 fspz=429) GLUCOSE RANDOM (BEAKER) 87 mg/dL 70-105 (test zogf=345) CALCIUM (BEAKER) (test 8.9 mg/dL 8.4-10.2 bnpw=946) EGFR (BEAKER) (test mL/min/1.73 sq m INSUFFICIENT CLINICAL DATA habb=6472) TO CALCULATE ESTIMATED GFR. CT, BRAIN, WITHOUT [id number] 17:07:00Reason for exam:->acute hyponatremiaWhat is the patient's sedation requirement?->No SedationFINAL REPORT CT head without contrast INDICATION: Encephalopathy, acute hyponatremia. TECHNIQUE: Axial noncontrast CT images through the head were obtained. This exam was performed according to our departmental dose optimization program which includes automated exposure control ,adjustment of the mA and/or kV according to patient size and/or use of iterative reconstruction technique. COMPARISON: None available FINDINGS:There is no acute intracranial hemorrhage or mass [...] abnormality, MRI is advised. Signed: Yuri Chávez MDReport Verified Date/Time: 11/02/2017 17:07:14 Reading Location: [address] Neuro Reading Room Electronically signed by: YURI CHÁVEZ M.D. on 2017 05:07 [facility] [id number] 16:05:00 Test Item Value Reference Range Comments SODIUM (BEAKER) (test 124 meq/L 136-145 sfoa=486) POTASSIUM (BEAKER) (test 3.8 meq/L 3.5-5.1 ekrw=445) CHLORIDE (BEAKER) (test 95 meq/L 98-107 nhht=514) CO2 (BEAKER) (test 21 meq/L 22-29 bbvk=548) BLOOD UREA NITROGEN 26 mg/dL 7-21 (BEAKER) (test cxoj=845) CREATININE (BEAKER) (test 1.03 mg/dL 0.57-1.25 zsff=778) GLUCOSE RANDOM (BEAKER) 113 mg/dL 70-105 (test wbiy=925) CALCIUM (BEAKER) (test 8.8 mg/dL 8.4-10.2 wnrn=537) EGFR (BEAKER) (test mL/min/1.73 sq m INSUFFICIENT CLINICAL DATA vsao=9822) TO CALCULATE ESTIMATED GFR. RAD, CHEST, 1 VIEW, NON [id number] 15:21:00Reason for exam:->cvlShould this be performed at the bedside?->YesFINAL REPORT History: Shortness of breath Comparison: 0957 hours on 11/02/2017Findings: There is mild persistent patchy airspace consolidation at the left lung base. There is a small left pleural effusion. These findings are unchanged. Right lung clear. No right pleural effusion. No pneumothorax. The cardiac shadow is partially obscured. Sternotomy wires are present. Right jugular catheter tip is in the distal SVC region. IMPRESSION: 1. No change in the mild airspace consolidation at the left lung base and small left pleural effusion. Signed: Chacorta Mccord MDReport Verified Date/Time: 11/02/2017 15:21:03 Reading Location : [address] Transitional Reading Room BASIC METABOLIC [id number] 13:40:00 Test Item Value Reference Range Comments SODIUM (BEAKER) (test 123 meq/L 136-145 gxfn=020) POTASSIUM (BEAKER) (test 4.0 meq/L 3.5-5.1 nbvl=282) CHLORIDE (BEAKER) (test 93 meq/L 98-107 pdob=796) CO2 (BEAKER) (test 21 meq/L 22-29 dlkc=166) BLOOD UREA NITROGEN 28 mg/dL 7-21 (BEAKER) (test ydtz=496) CREATININE (BEAKER) (test 1.16 mg/dL 0.57-1.25 msxg=553) GLUCOSE RANDOM (BEAKER) 155 mg/dL 70-105 (test ojzt=446) CALCIUM (BEAKER) (test 8.8 mg/dL 8.4-10.2 fyha=161) EGFR (BEAKER) (test mL/min/1.73 sq m INSUFFICIENT CLINICAL DATA bsps=8106) TO CALCULATE ESTIMATED GFR. OSMOLALITY, [id number] 12:56:00 Test Item Value Reference Range Comments OSMOLALITY URINE (BEAKER) (test kuoq=711) 283 mOsm/kg 40-1400 URINALYSIS W/ [id number] 12:55:00 Test Item Value Reference Range Comments COLOR (BEAKER) (test ccij=520) Light Yellow CLARITY (BEAKER) (test pgyh=848) Clear SPECIFIC GRAVITY UA (BEAKER) (test ovbm=925) 1.007 1.001-1.035 PH UA (BEAKER) (test lthc=657) 6.0 5.0-8.0 PROTEIN UA (BEAKER) (test ijpd=584) Negative Negative GLUCOSE UA (BEAKER) (test hefp=100) Negative Negative KETONES UA (BEAKER) (test egjq=125) Negative Negative BILIRUBIN UA (BEAKER) (test wicc=947) Negative Negative BLOOD UA (BEAKER) (test peyy=368) Negative Negative NITRITE UA (BEAKER) (test amov=457) Negative Negative LEUKOCYTE ESTERASE UA (BEAKER) (test pdwl=739) Negative Negative UROBILINOGEN UA (BEAKER) (test yjcs=849) 0.2 mg/dL 0.2-1.0 RBC UA (BEAKER) (test ojbq=219) < /HPF WBC UA (BEAKER) (test rvyf=572) 2 /HPF BACTERIA (BEAKER) (test yckq=948) Rare SQUAMOUS EPITHELIAL (BEAKER) (test eung=061) < /HPF SOURCE(BEAKER) (test iwau=7091) SODIUM, RANDOM [id number] 12:50:00 Test Item Value Reference Range Comments SODIUM URINE (BEAKER) (test shhf=658) < meq/L Reference Range: No NormalsSODIUM, RANDOM [id number] 12:50:00 Test Item Value Reference Range Comments SODIUM URINE (BEAKER) (test rbwk=267) < meq/L Reference Range: No NormalsUREA NITROGEN, RANDOM [id number] 12:44:00 Test Item Value Reference Range Comments UREA NITROGEN URINE (BEAKER) (test ssgl=190) 446 mg/dL Reference Range: No NormalsCHLORIDE, RANDOM [id number] 12:39:00 Test Item Value Reference Range Comments CHLORIDE URINE (BEAKER) (test wbet=660) 23 meq/L Reference Range: No [id number] 12:28:00 Test Item Value Reference Range Comments CORTISOL, TOTAL (BEAKER) (test ftlb=3116) 18.6 ug/dL 3.7-19.4 BASIC METABOLIC [id number] 12:26:00 Test Item Value Reference Range Comments SODIUM (BEAKER) (test 119 meq/L 136-145 kfjt=945) POTASSIUM (BEAKER) (test 4.1 meq/L 3.5-5.1 dqwr=803) CHLORIDE (BEAKER) (test 92 meq/L 98-107 eoqd=195) CO2 (BEAKER) (test 18 meq/L 22-29 vsff=294) BLOOD UREA NITROGEN 27 mg/dL 7-21 (BEAKER) (test ntyb=903) CREATININE (BEAKER) (test 1.08 mg/dL 0.57-1.25 jtcw=494) GLUCOSE RANDOM (BEAKER) 188 mg/dL 70-105 (test pdhs=684) CALCIUM (BEAKER) (test 8.7 mg/dL 8.4-10.2 wxpp=701) EGFR (BEAKER) (test mL/min/1.73 sq m INSUFFICIENT CLINICAL DATA ftbk=2942) TO CALCULATE ESTIMATED GFR. URIC [id number] 12:09:00 Test Item Value Reference Range Comments URIC ACID (BEAKER) (test zcxo=492) 8.2 mg/dL 2.6-7.2 BLOOD GAS, [id number] 09:56:00 Test Item Value Reference Range Comments PH ARTERIAL (BEAKER) (test httq=186) 7.46 7.35-7.45 PCO2 ARTERIAL (BEAKER) (test floe=150) 28 mmHg 35-45 PO2 ARTERIAL (BEAKER) (test yfge=537) 90 mmHg 80-90 O2 SATURATION ARTERIAL (BEAKER) (test aeln=353) 97.5 % 96.0-97.0 HCO3 ARTERIAL (BEAKER) (test ugyo=453) 19 mmol/L 21-29 BASE EXCESS ARTERIAL (BEAKER) (test ljhq=912) -3.5 mmol/L -2.0-3.0 PATIENT TEMPERATURE (BEAKER) (test rjac=4660) 36.4 C FIO2 (BEAKER) (test fpuo=6671) 90.0 % BASIC METABOLIC [id number] 09:34:00 Test Item Value Reference Range Comments SODIUM (BEAKER) (test 118 meq/L 136-145 gjjn=514) POTASSIUM (BEAKER) (test 4.1 meq/L 3.5-5.1 desa=300) CHLORIDE (BEAKER) (test 91 meq/L 98-107 xjjx=845) CO2 (BEAKER) (test 20 meq/L 22-29 smyf=810) BLOOD UREA NITROGEN 29 mg/dL 7-21 (BEAKER) (test atsz=577) CREATININE (BEAKER) (test 1.19 mg/dL 0.57-1.25 aezs=370) GLUCOSE RANDOM (BEAKER) 159 mg/dL 70-105 (test oywd=469) CALCIUM (BEAKER) (test 8.6 mg/dL 8.4-10.2 iuan=978) EGFR (BEAKER) (test mL/min/1.73 sq m INSUFFICIENT CLINICAL DATA nbrf=7243) TO CALCULATE ESTIMATED GFR. POCT-GLUCOSE [id number] 08:43:00 Test Item Value Reference Range Comments POC-GLUCOSE METER (BEAKER) 174 mg/dL 70-110 TESTED AT [facility] [address] [facility] (test nezi=9510) [facility] [address] BASIC METABOLIC [id number] 08:12:00 Test Item Value Reference Range Comments SODIUM (BEAKER) (test 119 meq/L 136-145 vnnx=234) POTASSIUM (BEAKER) (test 4.3 meq/L 3.5-5.1 wrqx=541) CHLORIDE (BEAKER) (test 92 meq/L 98-107 wqzu=643) CO2 (BEAKER) (test 17 meq/L 22-29 twnx=366) BLOOD UREA NITROGEN 29 mg/dL 7-21 (BEAKER) (test evky=651) CREATININE (BEAKER) (test 1.23 mg/dL 0.57-1.25 iman=408) GLUCOSE RANDOM (BEAKER) 178 mg/dL 70-105 (test qxdb=387) CALCIUM (BEAKER) (test 8.6 mg/dL 8.4-10.2 fvda=988) EGFR (BEAKER) (test mL/min/1.73 sq m INSUFFICIENT CLINICAL DATA ditz=5050) TO CALCULATE ESTIMATED GFR. [id number] 07:59:00 Test Item Value Reference Range Comments MAGNESIUM (BEAKER) (test ijea=542) 2.3 mg/dL 1.6-2.6 B-TYPE NATRIURETIC FACTOR (BNP)2017-11-02 07:47:00 Test Item Value Reference Range Comments B-TYPE NATRIURETIC PEPTIDE (BEAKER) (test 154 pg/mL 0-100 dkqh=856) CBC (HEMOGRAM ONLY)2017-11-02 07:30:00 Test Item Value Reference Range Comments WHITE BLOOD CELL COUNT (BEAKER) (test qdzj=151) 18.3 K/ L 3.5-10.5 RED BLOOD CELL COUNT (BEAKER) (test sfee=080) 3.40 M/ L 4.63-6.08 HEMOGLOBIN (BEAKER) (test kdrw=935) 9.5 GM/DL 13.7-17.5 HEMATOCRIT (BEAKER) (test uuhf=244) 29.3 % 40.1-51.0 MEAN CORPUSCULAR VOLUME (BEAKER) (test pcoq=753) 86.2 fL 79.0-92.2 MEAN CORPUSCULAR HEMOGLOBIN (BEAKER) (test 27.9 pg 25.7-32.2 ddem=678) MEAN CORPUSCULAR HEMOGLOBIN CONC (BEAKER) (test 32.4 GM/DL 32.3-36.5 mxqe=526) RED CELL DISTRIBUTION WIDTH (BEAKER) (test 13.6 % 11.6-14.4 pmin=789) PLATELET COUNT (BEAKER) (test ytar=891) 145 K/CU MM 150-450 MEAN PLATELET VOLUME (BEAKER) (test ztcc=377) 13.1 fL 9.4-12.4 NUCLEATED RED BLOOD CELLS (BEAKER) (test 0 /100 WBC 0-0 dzaw=010) POCT-GLUCOSE [id number] 20:48:00 Test Item Value Reference Range Comments POC-GLUCOSE METER (BEAKER) 240 mg/dL 70-110 TESTED AT [address] (test zvym=8537) [facility] [address] POCT-GLUCOSE [id number] 18:18:00 Test Item Value Reference Range Comments POC-GLUCOSE METER (BEAKER) 222 mg/dL 70-110 TESTED AT [address] (test bjqg=4347) [facility] [address] POCT-GLUCOSE [id number] 13:59:00 Test Item Value Reference Range Comments POC-GLUCOSE METER (BEAKER) 194 mg/dL 70-110 TESTED AT [address] (test ybjr=3539) [facility] [address] POCT-GLUCOSE [id number] 08:47:00 Test Item Value Reference Range Comments POC-GLUCOSE METER (BEAKER) 217 mg/dL 70-110 TESTED AT [address] (test snyh=8596) [facility] [address] BASIC METABOLIC [id number] 07:31:00 Test Item Value Reference Range Comments SODIUM (BEAKER) (test 128 meq/L 136-145 weao=117) POTASSIUM (BEAKER) (test 4.0 meq/L 3.5-5.1 vaes=388) CHLORIDE (BEAKER) (test 100 meq/L 98-107 ekis=811) CO2 (BEAKER) (test 20 meq/L 22-29 eliw=138) BLOOD UREA NITROGEN 18 mg/dL 7-21 (BEAKER) (test xxsm=036) CREATININE (BEAKER) (test 1.15 mg/dL 0.57-1.25 jouy=967) GLUCOSE RANDOM (BEAKER) 182 mg/dL 70-105 (test zvuw=174) CALCIUM (BEAKER) (test 8.9 mg/dL 8.4-10.2 sidr=673) EGFR (BEAKER) (test mL/min/1.73 sq m INSUFFICIENT CLINICAL DATA xpqa=4212) TO CALCULATE ESTIMATED GFR. [id number] 07:24:00 Test Item Value Reference Range Comments PHOSPHORUS (BEAKER) (test sawu=096) 2.5 mg/dL 2.3-4.7 [id number] 07:24:00 Test Item Value Reference Range Comments MAGNESIUM (BEAKER) (test nthq=215) 2.0 mg/dL 1.6-2.6 CBC (HEMOGRAM ONLY)2017-11-01 07:02:00 Test Item Value Reference Range Comments WHITE BLOOD CELL COUNT (BEAKER) (test akin=875) 16.9 K/ L 3.5-10.5 RED BLOOD CELL COUNT (BEAKER) (test vcam=416) 3.47 M/ L 4.63-6.08 HEMOGLOBIN (BEAKER) (test adfa=399) 9.8 GM/DL 13.7-17.5 HEMATOCRIT (BEAKER) (test dgpx=152) 30.1 % 40.1-51.0 MEAN CORPUSCULAR VOLUME (BEAKER) (test bkjn=418) 86.7 fL 79.0-92.2 MEAN CORPUSCULAR HEMOGLOBIN (BEAKER) (test 28.2 pg 25.7-32.2 fxkg=282) MEAN CORPUSCULAR HEMOGLOBIN CONC (BEAKER) (test 32.6 GM/DL 32.3-36.5 bwia=461) RED CELL DISTRIBUTION WIDTH (BEAKER) (test 13.8 % 11.6-14.4 vyek=125) PLATELET COUNT (BEAKER) (test alzc=032) 122 K/CU MM 150-450 MEAN PLATELET VOLUME (BEAKER) (test whzk=146) 12.6 fL 9.4-12.4 NUCLEATED RED BLOOD CELLS (BEAKER) (test 0 /100 WBC 0-0 iowr=930) POCT-GLUCOSE [id number] 05:40:00 Test Item Value Reference Range Comments POC-GLUCOSE METER (BEAKER) 222 mg/dL 70-110 TESTED AT [address] (test pvmh=4912) [place] [address] RAD, CHEST, 1 VIEW, NON [id number] 04:55:00Reason for exam:->post CT removalFINAL REPORT CLINICAL INDICATION: Chest tube removal Comparison: 10/31/2017 The cardiomediastinal contours are stable. The lung volumes remain low. Central pulmonary vascular prominence and bilateral parenchymal opacities are unchanged. Blunting of the left costophrenic sulcus may reflect a small effusion. There is no pneumothorax. A left chest tube and right IJ CVC has been removed. Signed: Tello Landon Verified Date/Time : 11/01/2017 04:55:17 Reading Location: [address] Reading Room POCT- GLUCOSE [id number] 23:11:00 Test Item Value Reference Range Comments POC-GLUCOSE METER (BEAKER) 249 mg/dL 70-110 TESTED AT [address] (test qorb=2178) [place] [id number] POCT-GLUCOSE [id number] 19:49:00 Test Item Value Reference Range Comments POC-GLUCOSE METER (BEAKER) 190 mg/dL 70-110 TESTED AT [address] (test cypg=9347) [place] [id number] POCT-GLUCOSE [id number] 11:30:00 Test Item Value Reference Range Comments POC-GLUCOSE METER (BEAKER) 206 mg/dL 70-110 TESTED AT [address] (test wwmm=3602) [facility] [address] POCT-GLUCOSE [id number] 07:19:00 Test Item Value Reference Range Comments POC-GLUCOSE METER (BEAKER) 107 mg/dL 70-110 TESTED AT [address] (test gcdk=8448) [facility] [address] POCT-GLUCOSE [id number] 06:02:00 Test Item Value Reference Range Comments POC-GLUCOSE METER (BEAKER) 88 mg/dL 70-110 TESTED AT [address] (test ihuq=5033) [facility] [address] RAD, CHEST, 1 VIEW, NON [id number] 04:57:00while patient is intubated or has chest tubes.Reason for exam:->s/p ACBShould this be performed at the bedside?->YesFINAL REPORT RAD, CHEST, 1 VIEW, NON DEPT INDICATION: s/p ACB COMPARISON: Prior day's exam FINDINGS: Portable frontal view of the chest. IMPRESSION: Support Lines: Interval extubation and removal of previously seen enteric tube. Interval removal of the previously seen mediastinal drain. Otherwise unchanged support apparatus. Lungs and pleura : Unchanged airspace and pleural opacities. No pneumothorax.Heart and mediastinum: Stable contours. Stable surgical changes.Additional findings: None. Signed: Olya Avila Verified Date/Time: 10/31/2017 04:57 :34 ReadingLocation: [facility] B1 C013T Transitional Reading Room BASIC METABOLIC [id number] 03:36:00 Test Item Value Reference Range Comments SODIUM (BEAKER) (test 137 meq/L 136-145 azxp=887) POTASSIUM (BEAKER) (test 3.9 meq/L 3.5-5.1 qjqz=820) CHLORIDE (BEAKER) (test 109 meq/L 98-107 gege=413) CO2 (BEAKER) (test 20 meq/L 22-29 gays=345) BLOOD UREA NITROGEN 15 mg/dL 7-21 (BEAKER) (test nbgq=844) CREATININE (BEAKER) (test 0.94 mg/dL 0.57-1.25 ygol=273) GLUCOSE RANDOM (BEAKER) 109 mg/dL 70-105 (test tdvb=546) CALCIUM (BEAKER) (test 8.5 mg/dL 8.4-10.2 gmji=999) EGFR (BEAKER) (test mL/min/1.73 sq m INSUFFICIENT CLINICAL DATA pwkg=8534) TO CALCULATE ESTIMATED GFR. [id number] 03:34:00 Test Item Value Reference Range Comments PHOSPHORUS (BEAKER) (test zfcp=442) 3.7 mg/dL 2.3-4.7 [id number] 03:34:00 Test Item Value Reference Range Comments MAGNESIUM (BEAKER) (test hsdu=580) 1.9 mg/dL 1.6-2.6 CBC (HEMOGRAM ONLY)2017-10-31 03:12:00 Test Item Value Reference Range Comments WHITE BLOOD CELL COUNT (BEAKER) (test rwmh=148) 14.8 K/ L 3.5-10.5 RED BLOOD CELL COUNT (BEAKER) (test tmmo=245) 3.51 M/ L 4.63-6.08 HEMOGLOBIN (BEAKER) (test udlj=338) 9.9 GM/DL 13.7-17.5 HEMATOCRIT (BEAKER) (test krbt=560) 30.8 % 40.1-51.0 MEAN CORPUSCULAR VOLUME (BEAKER) (test alqd=245) 87.7 fL 79.0-92.2 MEAN CORPUSCULAR HEMOGLOBIN (BEAKER) (test 28.2 pg 25.7-32.2 njjq=762) MEAN CORPUSCULAR HEMOGLOBIN CONC (BEAKER) (test 32.1 GM/DL 32.3-36.5 snnj=039) RED CELL DISTRIBUTION WIDTH (BEAKER) (test 13.8 % 11.6-14.4 kbxk=188) PLATELET COUNT (BEAKER) (test tsfx=605) 127 K/CU MM 150-450 MEAN PLATELET VOLUME (BEAKER) (test mybe=357) 12.2 fL 9.4-12.4 NUCLEATED RED BLOOD CELLS (BEAKER) (test 0 /100 WBC 0-0 wuej=308) POCT-GLUCOSE [id number] 02:32:00 Test Item Value Reference Range Comments POC-GLUCOSE METER (BEAKER) 107 mg/dL 70-110 TESTED AT [address] (test ysxg=4844) [facility] [address] POCT-GLUCOSE [id number] 01:09:00 Test Item Value Reference Range Comments POC-GLUCOSE METER (BEAKER) 118 mg/dL 70-110 TESTED AT [address] (test ilic=2406) [facility] [address] POCT-GLUCOSE [id number] 00:31:00 Test Item Value Reference Range Comments POC-GLUCOSE METER (BEAKER) 115 mg/dL 70-110 TESTED AT [address] (test csig=7667) [facility] [address] POCT-GLUCOSE [id number] 22:56:00 Test Item Value Reference Range Comments POC-GLUCOSE METER (BEAKER) 149 mg/dL 70-110 TESTED AT [address] (test ehlx=6335) [facility] [address] POCT-GLUCOSE [id number] 22:16:00 Test Item Value Reference Range Comments POC-GLUCOSE METER (BEAKER) 153 mg/dL 70-110 TESTED AT [address] (test pczf=8191) [facility] [address] POCT-GLUCOSE [id number] 21:07:00 Test Item Value Reference Range Comments POC-GLUCOSE METER (BEAKER) 167 mg/dL 70-110 TESTED AT [address] (test dksv=2837) [facility] [address] LACTIC ACID, ARTERIAL, WHOLE [id number] 20:31:00 Test Item Value Reference Range Comments LACTATE BLOOD ARTERIAL (2) (BEAKER) (test 2.1 mmol/L 0.5-2.2 cnde=7811) Effective 07/06/2015: Units/Reference Range ChangeNew: 0.5-2.2 mmol/L Previous: 5 -20 mg/[id number] 20:31:00 Test Item Value Reference Range Comments MAGNESIUM (BEAKER) (test cnbj=070) 2.0 mg/dL 1.6-2.6 [id number] 20:30:00 Test Item Value Reference Range Comments POTASSIUM (BEAKER) (test twcp=901) 4.1 meq/L 3.5-5.1 CALCIUM, [id number] 20:12:00 Test Item Value Reference Range Comments CALCIUM IONIZED (BEAKER) (test hjbn=795) 1.15 mmol/L 1.12-1.27 PH, BLOOD (BEAKER) (test lbev=6684) 7.36 POCT-GLUCOSE [id number] 20:08:00 Test Item Value Reference Range Comments POC-GLUCOSE METER (BEAKER) 190 mg/dL 70-110 TESTED AT [address] (test wnpl=4706) [facility] [address] POCT-GLUCOSE [id number] 19:08:00 Test Item Value Reference Range Comments POC-GLUCOSE METER (BEAKER) 206 mg/dL 70-110 TESTED AT [address] (test rykw=6243) [facility] [address] BLOOD GAS, [id number] 17:52:00 Test Item Value Reference Range Comments PH ARTERIAL (BEAKER) (test kpcy=644) 7.38 7.35-7.45 PCO2 ARTERIAL (BEAKER) (test jgfu=201) 33 mmHg 35-45 PO2 ARTERIAL (BEAKER) (test fyem=958) 93 mmHg 80-90 O2 SATURATION ARTERIAL (BEAKER) (test gmud=235) 97.0 % 96.0-97.0 HCO3 ARTERIAL (BEAKER) (test euwx=718) 19 mmol/L 21-29 BASE EXCESS ARTERIAL (BEAKER) (test wtul=940) -5.6 mmol/L -2.0-3.0 PATIENT TEMPERATURE (BEAKER) (test htgm=0813) 37.0 C FIO2 (BEAKER) (test opti=2266) 40.0 % RAD, CHEST, 1 VIEW, NON [id number] 17:41:00Reason for exam:->s/p ACBShould this be performed at the bedside?->YesFINAL REPORT Chest, one view. HISTORY: Postop COMPARISON: 10/29/2017 IMPRESSION: Endotracheal tube lies 4.8 cm proximal to the barry. Right IJ catheter tip overlies the expectedregion of the SVC/RA junction. Nasogastric tube tip overlies expected region of the gastric body. Two chest tubes are seen. No identifiable pneumothorax. Mild enlargement of the cardiomediastinal silhouette. Mild bibasilar/infrahilar atelectasis or consolidation. Low lung volumes. Signed: Frank UrbinaMDReport Verified Date/Time: 10/30/2017 17:41:44 Reading Location: [facility] C013W Consult Reading Room POCT-GLUCOSE [id number] 17: 30:00 Test Item Value Reference Range Comments POC-GLUCOSE METER (BEAKER) 225 mg/dL 70-110 TESTED AT [address] (test eovh=5315) [facility] [address] POCT-GLUCOSE [id number] 16:34:00 Test Item Value Reference Range Comments POC-GLUCOSE METER (BEAKER) 224 mg/dL 70-110 TESTED AT [address] (test llnb=4592) [facility] [address] CBC W/PLT COUNT & AUTO [id number] 15:30:00 Test Item Value Reference Range Comments WHITE BLOOD CELL COUNT (BEAKER) (test ozye=360) 27.1 K/ L 3.5-10.5 RED BLOOD CELL COUNT (BEAKER) (test bmxh=395) 4.16 M/ L 4.63-6.08 HEMOGLOBIN (BEAKER) (test nefc=299) 11.8 GM/DL 13.7-17.5 HEMATOCRIT (BEAKER) (test nhky=523) 36.6 % 40.1-51.0 MEAN CORPUSCULAR VOLUME (BEAKER) (test vvzc=589) 88.0 fL 79.0-92.2 MEAN CORPUSCULAR HEMOGLOBIN (BEAKER) (test 28.4 pg 25.7-32.2 vkgv=324) MEAN CORPUSCULAR HEMOGLOBIN CONC (BEAKER) (test 32.2 GM/DL 32.3-36.5 ppcs=712) RED CELL DISTRIBUTION WIDTH (BEAKER) (test 13.7 % 11.6-14.4 paih=778) PLATELET COUNT (BEAKER) (test xxxq=383) 167 K/CU MM 150-450 MEAN PLATELET VOLUME (BEAKER) (test ndwc=556) 12.1 fL 9.4-12.4 NUCLEATED RED BLOOD CELLS (BEAKER) (test 0 /100 WBC 0-0 rovl=275) (CELLAVISION MANUAL DIFF)2017-10-30 15:30:00 Test Item Value Reference Range Comments NEUTROPHILS - REL (CELLAVISION)(BEAKER) (test 81 % uoet=9431) LYMPHOCYTES - REL (CELLAVISION)(BEAKER) (test 4 % bbuw=5221) MONOCYTES - REL (CELLAVISION)(BEAKER) (test 5 % udad=5155) BANDS - REL (CELLAVISION)(BEAKER) (test 10 % 0-10 jyyy=8966) NEUTROPHILS - ABS (CELLAVISION)(BEAKER) (test 21.95 K/ul 1.78-5.38 izjv=4010) LYMPHOCYTES - ABS (CELLAVISION)(BEAKER) (test 1.08 K/ul 1.32-3.57 elvi=0093) MONOCYTES - ABS (CELLAVISION)(BEAKER) (test 1.36 K/uL 0.30-0.82 ztji=8885) BANDS - ABS (CELLAVISION)(BEAKER) (test 2.71 K/uL 0.00-0.80 viqf=6393) TOTAL COUNTED (BEAKER) (test jhvy=1920) 100 WBC MORPHOLOGY (BEAKER) (test bebd=932) Normal PLT MORPHOLOGY (BEAKER) (test kvfz=725) Normal POIKILOCYTES (BEAKER) (test tqyb=634) 1+ few ARTIFACT (CELLAVISION)(BEAKER) (test hgci=2937) Present PLATELET CONCENTRATION (CELLAVISION)(BEAKER) Adequate (test lxho=8603) Received comment: User comments: Slide comments:[id number] 15:21:00 Test Item Value Reference Range Comments POTASSIUM (BEAKER) (test xahy=986) 4.9 meq/L 3.5-5.1 [id number] 15:21:00 Test Item Value Reference Range Comments MAGNESIUM (BEAKER) (test rujk=813) 1.9 mg/dL 1.6-2.6 [id number] 15:21:00 Test Item Value Reference Range Comments PHOSPHORUS (BEAKER) (test pfaj=139) 3.1 mg/dL 2.3-4.7 [id number] 15:21:00 Test Item Value Reference Range Comments SODIUM (BEAKER) (test ckwo=066) 139 meq/L 136-145 [id number] 15:21:00 Test Item Value Reference Range Comments GLUCOSE RANDOM (BEAKER) (test wjee=839) 211 mg/dL 70-105 BASIC METABOLIC [id number] 15:21:00 Test Item Value Reference Range Comments SODIUM (BEAKER) (test 139 meq/L 136-145 rpro=343) POTASSIUM (BEAKER) (test 4.9 meq/L 3.5-5.1 gway=986) CHLORIDE (BEAKER) (test 112 meq/L 98-107 hvuv=074) CO2 (BEAKER) (test 20 meq/L 22-29 hzdj=307) BLOOD UREA NITROGEN 17 mg/dL 7-21 (BEAKER) (test blfz=695) CREATININE (BEAKER) (test 1.11 mg/dL 0.57-1.25 wius=553) GLUCOSE RANDOM (BEAKER) 211 mg/dL 70-105 (test dnvh=457) CALCIUM (BEAKER) (test 8.6 mg/dL 8.4-10.2 gldd=567) EGFR (BEAKER) (test mL/min/1.73 sq m INSUFFICIENT CLINICAL DATA qcyg=1436) TO CALCULATE ESTIMATED GFR. [id number] 15:20:00 Test Item Value Reference Range Comments FIBRINOGEN LEVEL (BEAKER) (test wbgi=485) 370 mg/dl 225-434 [id number] 15:20:00 Test Item Value Reference Range Comments PROTIME (BEAKER) (test kzqr=441) 16.3 seconds 11.7-14.7 INR (BEAKER) (test uyji=579) 1.3 <=5.9 PARTIAL THROMBOPLASTIN TIME (BEAKER) (test 29.3 seconds 22.5-36.0 ayec=151) RECOMMENDED COUMADIN/WARFARIN INR THERAPY RANGESSTANDARD DOSE: 2.0 - 3.0 Includes: PROPHYLAXIS forvenous thrombosis, systemic embolization; TREATMENT for venous thrombosis and/or pulmonary embolus.HIGH RISK: Target INR is 2.5-3.5 for patients with mechanical heart valves.LACTIC ACID, ARTERIAL, WHOLE [id number] 15:18:00 Test Item Value Reference Range Comments LACTATE BLOOD ARTERIAL (2) 1.1 mmol/L 0.5-2.2 Specimen slightly hemolyzed (BEAKER) (test elea=6480) Effective 07/06/2015: Units/Reference Range ChangeNew: 0.5-2.2 mmol/L Previous: 5 -20 mg/dLOXYGEN SATURATION, [id number] 15:13:00 Test Item Value Reference Range Comments O2 SATURATION (MEASURED) (BEAKER) (test fxke=9081) 77.1 % CBC (HEMOGRAM ONLY)2017-10-30 15:02:00 Test Item Value Reference Range Comments WHITE BLOOD CELL COUNT (BEAKER) (test qmza=539) 27.1 K/ L 3.5-10.5 RED BLOOD CELL COUNT (BEAKER) (test kfma=811) 4.16 M/ L 4.63-6.08 HEMOGLOBIN (BEAKER) (test awnf=963) 11.8 GM/DL 13.7-17.5 HEMATOCRIT (BEAKER) (test xfpi=800) 36.6 % 40.1-51.0 MEAN CORPUSCULAR VOLUME (BEAKER) (test umkj=331) 88.0 fL 79.0-92.2 MEAN CORPUSCULAR HEMOGLOBIN (BEAKER) (test 28.4 pg 25.7-32.2 yuio=979) MEAN CORPUSCULAR HEMOGLOBIN CONC (BEAKER) (test 32.2 GM/DL 32.3-36.5 wkmn=276) RED CELL DISTRIBUTION WIDTH (BEAKER) (test 13.7 % 11.6-14.4 cqkf=295) PLATELET COUNT (BEAKER) (test vgfs=985) 167 K/CU MM 150-450 MEAN PLATELET VOLUME (BEAKER) (test ccoy=814) 12.1 fL 9.4-12.4 NUCLEATED RED BLOOD CELLS (BEAKER) (test 0 /100 WBC 0-0 ukmq=565) HGB/HCT (H&H) - STAT [id number] 14:56:00 Test Item Value Reference Range Comments HEMOGLOBIN (BEAKER) (test yzzf=974) 12.1 g/dL 13.0-16.8 HEMATOCRIT (BEAKER) (test jwyg=554) 36.0 % 40.0-50.0 CALCIUM, [id number] 14:56:00 Test Item Value Reference Range Comments CALCIUM IONIZED (BEAKER) (test noqx=465) 1.07 mmol/L 1.12-1.27 PH, BLOOD (BEAKER) (test xncr=2352) 7.29 SODIUM NA-STAT [id number] 14:55:00 Test Item Value Reference Range Comments SODIUM (BEAKER) (test ykss=042) 136 meq/L 135-148 POTASSIUM-STAT [id number] 14:55:00 Test Item Value Reference Range Comments POTASSIUM (BEAKER) (test qwts=023) 4.7 meq/L 3.6-5.5 GLUCOSE-STAT [id number] 14:55:00 Test Item Value Reference Range Comments GLUCOSE RANDOM (BEAKER) (test pmpz=675) 209 mg/dL 70-110 HEMOGLOBIN-STAT [id number] 14:55:00 Test Item Value Reference Range Comments HEMOGLOBIN (BEAKER) (test rwxa=240) 12.1 g/dL 13.0-16.8 HGB/HCT (H&H) - STAT [id number] 14:55:00 Test Item Value Reference Range Comments HEMOGLOBIN (BEAKER) (test rtwf=532) 12.1 GM/DL 13.0-16.8 HEMATOCRIT (BEAKER) (test pxug=398) 36.0 % 40.0-50.0 BLOOD GAS, [id number] 14:55:00 Test Item Value Reference Range Comments PH ARTERIAL (BEAKER) (test rlqx=228) 7.30 7.35-7.45 PCO2 ARTERIAL (BEAKER) (test cayu=161) 46 mmHg 35-45 PO2 ARTERIAL (BEAKER) (test pxcp=218) 162 mmHg 80-90 O2 SATURATION ARTERIAL (BEAKER) (test zved=507) 98.9 % 96.0-97.0 HCO3 ARTERIAL (BEAKER) (test jkwm=798) 23 mmol/L 21-29 BASE EXCESS ARTERIAL (BEAKER) (test oqbb=562) -4.2 mmol/L -2.0-3.0 PATIENT TEMPERATURE (BEAKER) (test vsnx=7779) 36.4 C FIO2 (BEAKER) (test sxim=1873) 60.0 % SODIUM NA-STAT [id number] 14:55:00 Test Item Value Reference Range Comments SODIUM (BEAKER) (test nwbi=046) 136 meq/L 135-148 POTASSIUM-STAT [id number] 14:55:00 Test Item Value Reference Range Comments POTASSIUM (BEAKER) (test yldr=740) 4.7 meq/L 3.6-5.5 GLUCOSE-STAT [id number] 14:55:00 Test Item Value Reference Range Comments GLUCOSE RANDOM (BEAKER) (test rulo=161) 209 mg/dL 70-110 [id number] 14:02:00 Test Item Value Reference Range Comments ACTIVATED CLOTTING TIME 109 sec TESTED AT [place] [address] [facility] (BEAKER) (test cbyx=845) [place] [address] [id number] 14:02:00 Test Item Value Reference Range Comments ACTIVATED CLOTTING TIME 433 sec TESTED AT [place] [address] [facility] (BEAKER) (test fcmd=750) [place] [address] [id number] 14:02:00 Test Item Value Reference Range Comments ACTIVATED CLOTTING TIME 422 sec TESTED AT [address] (BEAKER) (test edsq=501) [place] [address] [id number] 14:02:00 Test Item Value Reference Range Comments ACTIVATED CLOTTING TIME 455 sec TESTED AT [place] [address] [facility] (BEAKER) (test btzu=623) [place] [id number] CALCIUM, [id number] 13:33:00 Test Item Value Reference Range Comments CALCIUM IONIZED (BEAKER) (test sszd=557) 1.19 mmol/L 1.12-1.27 PH, BLOOD (BEAKER) (test oiql=7311) 7.31 BLOOD GAS, [id number] 13:32:00 Test Item Value Reference Range Comments PH ARTERIAL (BEAKER) (test cdgj=647) 7.33 7.35-7.45 PCO2 ARTERIAL (BEAKER) (test btcg=087) 45 mmHg 35-45 PO2 ARTERIAL (BEAKER) (test rpru=174) 108 mmHg 80-90 O2 SATURATION ARTERIAL (BEAKER) (test wkww=165) 97.8 % 96.0-97.0 HCO3 ARTERIAL (BEAKER) (test jcby=765) 23 mmol/L 21-29 BASE EXCESS ARTERIAL (BEAKER) (test qaow=359) -3.0 mmol/L -2.0-3.0 PATIENT TEMPERATURE (BEAKER) (test pftv=8903) 35.8 C FIO2 (BEAKER) (test tyae=9399) 100.0 % GLUCOSE-STAT [id number] 13:32:00 Test Item Value Reference Range Comments GLUCOSE RANDOM (BEAKER) (test tnsa=013) 203 mg/dL 70-110 HGB/HCT (H&H) - STAT [id number] 13:32:00 Test Item Value Reference Range Comments HEMOGLOBIN (BEAKER) (test tbcp=052) 10.3 g/dL 13.0-16.8 HEMATOCRIT (BEAKER) (test rezl=829) 30.0 % 40.0-50.0 SODIUM NA-STAT [id number] 13:30:00 Test Item Value Reference Range Comments SODIUM (BEAKER) (test gtzd=071) 135 meq/L 135-148 POTASSIUM-STAT [id number] 13:30:00 Test Item Value Reference Range Comments POTASSIUM (BEAKER) (test xlzn=602) 4.7 meq/L 3.6-5.5 POTASSIUM-STAT [id number] 12:43:00 Test Item Value Reference Range Comments POTASSIUM (BEAKER) (test zbsy=139) 5.4 meq/L 3.6-5.5 BLOOD GAS, [id number] 12:43:00 Test Item Value Reference Range Comments PH ARTERIAL (BEAKER) (test biqy=414) 7.33 7.35-7.45 PCO2 ARTERIAL (BEAKER) (test ldnh=145) 48 mmHg 35-45 PO2 ARTERIAL (BEAKER) (test nmwk=170) 308 mmHg 80-90 O2 SATURATION ARTERIAL (BEAKER) (test dokf=586) 99.7 % 96.0-97.0 HCO3 ARTERIAL (BEAKER) (test yatg=440) 25 mmol/L 21-29 BASE EXCESS ARTERIAL (BEAKER) (test fmuu=215) -1.5 mmol/L -2.0-3.0 PATIENT TEMPERATURE (BEAKER) (test opfs=6184) 36.8 C FIO2 (BEAKER) (test cbld=1487) 80.0 % SODIUM NA-STAT [id number] 12:43:00 Test Item Value Reference Range Comments SODIUM (BEAKER) (test mnpt=856) 133 meq/L 135-148 GLUCOSE-STAT [id number] 12:43:00 Test Item Value Reference Range Comments GLUCOSE RANDOM (BEAKER) (test fbxj=370) 195 mg/dL 70-110 HGB/HCT (H&H) - STAT [id number] 12:43:00 Test Item Value Reference Range Comments HEMOGLOBIN (BEAKER) (test papg=585) 8.8 g/dL 13.0-16.8 HEMATOCRIT (BEAKER) (test vyaj=311) 26.0 % 40.0-50.0 BLOOD GAS, [id number] 12:18:00 Test Item Value Reference Range Comments PH ARTERIAL (BEAKER) (test phkh=458) 7.38 7.35-7.45 PCO2 ARTERIAL (BEAKER) (test cjai=479) 38 mmHg 35-45 PO2 ARTERIAL (BEAKER) (test kovk=050) 395 mmHg 80-90 O2 SATURATION ARTERIAL (BEAKER) (test wzoq=245) 99.8 % 96.0-97.0 HCO3 ARTERIAL (BEAKER) (test tbai=634) 25 mmol/L 21-29 BASE EXCESS ARTERIAL (BEAKER) (test laig=268) -2.8 mmol/L -2.0-3.0 PATIENT TEMPERATURE (BEAKER) (test mqpd=1457) 27.7 C FIO2 (BEAKER) (test xhle=7792) 80.0 % GLUCOSE-STAT [id number] 12:18:00 Test Item Value Reference Range Comments GLUCOSE RANDOM (BEAKER) (test raop=205) 192 mg/dL 70-110 HGB/HCT (H&H) - STAT [id number] 12:18:00 Test Item Value Reference Range Comments HEMOGLOBIN (BEAKER) (test tygn=763) 8.7 g/dL 13.0-16.8 HEMATOCRIT (BEAKER) (test zyuv=783) 26.0 % 40.0-50.0 BLOOD GAS, [id number] 12:18:00 Test Item Value Reference Range Comments PH VENOUS (BEAKER) (test iydu=865) 7.36 7.32-7.42 PCO2 VENOUS (BEAKER) (test qavn=029) 40 mmHg 41-51 PO2 VENOUS (BEAKER) (test agua=193) 29 mmHg 25-40 O2 SATURATION VENOUS (BEAKER) (test cooi=070) 83.1 % 40.0-70.0 HCO3 VENOUS (BEAKER) (test gzmg=673) 24 mmol/L 21-29 BASE EXCESS VENOUS (BEAKER) (test kiwu=695) -3.3 mmol/L -2.0-3.0 PATIENT TEMPERATURE (BEAKER) (test evsi=8687) 27.7 C FIO2 (BEAKER) (test zwxy=3424) 80.0 % SODIUM NA-STAT [id number] 12:17:00 Test Item Value Reference Range Comments SODIUM (BEAKER) (test eubv=129) 135 meq/L 135-148 POTASSIUM-STAT [id number] 12:17:00 Test Item Value Reference Range Comments POTASSIUM (BEAKER) (test jyxf=724) 4.2 meq/L 3.6-5.5 CALCIUM, [id number] 11:50:00 Test Item Value Reference Range Comments CALCIUM IONIZED (BEAKER) (test oafg=346) 1.05 mmol/L 1.12-1.27 PH, BLOOD (BEAKER) (test bgvd=4131) 7.34 BLOOD GAS, [id number] 11:50:00 Test Item Value Reference Range Comments PH ARTERIAL (BEAKER) (test wlda=427) 7.34 7.35-7.45 PCO2 ARTERIAL (BEAKER) (test fxdh=535) 44 mmHg 35-45 PO2 ARTERIAL (BEAKER) (test jlho=269) 126 mmHg 80-90 O2 SATURATION ARTERIAL (BEAKER) (test ymer=704) 98.4 % 96.0-97.0 HCO3 ARTERIAL (BEAKER) (test tvzo=861) 23 mmol/L 21-29 BASE EXCESS ARTERIAL (BEAKER) (test qduo=068) -2.5 mmol/L -2.0-3.0 PATIENT TEMPERATURE (BEAKER) (test cavg=1230) 36.4 C FIO2 (BEAKER) (test akwt=7853) 55.0 % GLUCOSE-STAT [id number] 11:50:00 Test Item Value Reference Range Comments GLUCOSE RANDOM (BEAKER) (test ntnu=096) 141 mg/dL 70-110 HGB/HCT (H&H) - STAT [id number] 11:50:00 Test Item Value Reference Range Comments HEMOGLOBIN (BEAKER) (test ppke=895) 12.0 g/dL 13.0-16.8 HEMATOCRIT (BEAKER) (test qubg=368) 35.0 % 40.0-50.0 SODIUM NA-STAT [id number] 11:49:00 Test Item Value Reference Range Comments SODIUM (BEAKER) (test hhgg=853) 139 meq/L 135-148 POTASSIUM-STAT [id number] 11:49:00 Test Item Value Reference Range Comments POTASSIUM (BEAKER) (test hroa=500) 4.1 meq/L 3.6-5.5 HEMOGLOBIN [id number] 09:17:00 Test Item Value Reference Range Comments HEMOGLOBIN A1C (BEAKER) (test ymon=143) 7.0 % 4.3-6.1 HEMOGLOBIN [id number] 09:16:00 Test Item Value Reference Range Comments HEMOGLOBIN A1C (BEAKER) (test koqs=708) 7.0 % 4.3-6.1 POCT-GLUCOSE [id number] 07:25:00 Test Item Value Reference Range Comments POC-GLUCOSE METER (BEAKER) 205 mg/dL 70-110 TESTED AT [facility] [address] [facility] (test fswz=5767) [facility] [address] BASIC METABOLIC [id number] 02:09:00 Test Item Value Reference Range Comments SODIUM (BEAKER) (test 136 meq/L 136-145 yofm=781) POTASSIUM (BEAKER) (test 4.1 meq/L 3.5-5.1 cayj=275) CHLORIDE (BEAKER) (test 107 meq/L 98-107 hwkh=673) CO2 (BEAKER) (test 22 meq/L 22-29 myak=026) BLOOD UREA NITROGEN 18 mg/dL 7-21 (BEAKER) (test kwme=885) CREATININE (BEAKER) (test 1.05 mg/dL 0.57-1.25 wzzx=972) GLUCOSE RANDOM (BEAKER) 141 mg/dL 70-105 (test azyn=697) CALCIUM (BEAKER) (test 9.1 mg/dL 8.4-10.2 iden=013) EGFR (BEAKER) (test mL/min/1.73 sq m INSUFFICIENT CLINICAL DATA jjex=8872) TO CALCULATE ESTIMATED GFR. [id number] 02:06:00 Test Item Value Reference Range Comments MAGNESIUM (BEAKER) (test xmei=527) 2.0 mg/dL 1.6-2.6 LIPID [id number] 02:06:00 Test Item Value Reference Range Comments TRIGLYCERIDES (BEAKER) (test hckr=051) 264 mg/dL CHOLESTEROL (BEAKER) (test gckd=568) 176 mg/dL HDL CHOLESTEROL (BEAKER) (test umiv=928) 33 mg/dL LDL CHOLESTEROL CALCULATED (BEAKER) (test 90 mg/dL nieh=329) Triglyceride Reference Range: Low Risk <150 Borderline 150- 199 High Risk 200-499 Very High Risk >=500Cholesterol Reference Range: Low Risk <200 Borderline 200-239 High Risk > 240HDL Cholesterol Reference Range: Low Risk >=60 High Risk <40LDL Cholesterol Reference Range: Optimal <100 Near Optimal 100-129 Borderline 130-159 High 160-189 Very High [id number] 01:54:00 Test Item Value Reference Range Comments PARTIAL THROMBOPLASTIN TIME (BEAKER) (test 30.3 seconds 22.5-36.0 vnks=748) CBC (HEMOGRAM ONLY)2017-10-30 01:48:00 Test Item Value Reference Range Comments WHITE BLOOD CELL COUNT (BEAKER) (test svug=129) 10.6 K/ L 3.5-10.5 RED BLOOD CELL COUNT (BEAKER) (test fmvp=982) 4.19 M/ L 4.63-6.08 HEMOGLOBIN (BEAKER) (test hmmd=361) 11.9 GM/DL 13.7-17.5 HEMATOCRIT (BEAKER) (test bsup=091) 36.5 % 40.1-51.0 MEAN CORPUSCULAR VOLUME (BEAKER) (test xflg=748) 87.1 fL 79.0-92.2 MEAN CORPUSCULAR HEMOGLOBIN (BEAKER) (test 28.4 pg 25.7-32.2 vbwl=944) MEAN CORPUSCULAR HEMOGLOBIN CONC (BEAKER) (test 32.6 GM/DL 32.3-36.5 rvey=812) RED CELL DISTRIBUTION WIDTH (BEAKER) (test 13.6 % 11.6-14.4 uynv=204) PLATELET COUNT (BEAKER) (test rfus=759) 178 K/CU MM 150-450 MEAN PLATELET VOLUME (BEAKER) (test omln=224) 11.7 fL 9.4-12.4 NUCLEATED RED BLOOD CELLS (BEAKER) (test 0 /100 WBC 0-0 fujv=234) [id number] 19:05:00 Test Item Value Reference Range Comments THYROID STIMULATING HORMONE (BEAKER) (test 0.53 uIU/mL 0.35-4.94 ldnq=240) COMPREHENSIVE METABOLIC [id number] 18:55:00 Test Item Value Reference Range Comments TOTAL PROTEIN (BEAKER) 6.7 gm/dL 6.0-8.3 (test lgxi=007) ALBUMIN (BEAKER) (test 3.8 g/dL 3.5-5.0 qdws=4713) ALKALINE PHOSPHATASE 64 U/L 40-150 (BEAKER) (test hbkb=903) BILIRUBIN TOTAL (BEAKER) 0.3 mg/dL 0.2-1.2 (test icui=760) SODIUM (BEAKER) (test 137 meq/L 136-145 dukj=643) POTASSIUM (BEAKER) (test 4.0 meq/L 3.5-5.1 npht=391) CHLORIDE (BEAKER) (test 106 meq/L 98-107 sxja=255) CO2 (BEAKER) (test 20 meq/L 22-29 hblx=549) BLOOD UREA NITROGEN 18 mg/dL 7-21 (BEAKER) (test jxpg=565) CREATININE (BEAKER) (test 1.26 mg/dL 0.57-1.25 ishg=373) GLUCOSE RANDOM (BEAKER) 324 mg/dL 70-105 (test mxbr=711) CALCIUM (BEAKER) (test 9.3 mg/dL 8.4-10.2 potr=088) AST (SGOT) (BEAKER) (test 21 U/L 5-34 kzfp=506) ALT (SGPT) (BEAKER) (test 36 U/L 6-55 hbyb=808) EGFR (BEAKER) (test mL/min/1.73 sq m INSUFFICIENT CLINICAL DATA wesy=2677) TO CALCULATE ESTIMATED GFR. TROPONIN [id number] 18:51:00 Test Item Value Reference Range Comments TROPONIN I (BEAKER) (test bznf=933) 0.02 ng/mL 0.00-0.03 Troponin I (TnI) levels must be interpreted [...] failure, acidosis, acute neurological disease, and persistent tachyarrhythmia.[id number] 18:46:00 Test Item Value Reference Range Comments MAGNESIUM (BEAKER) (test oejl=945) 2.0 mg/dL 1.6-2.6 PROTHROMBIN TIME/[id number] 18:45:00 Test Item Value Reference Range Comments PROTIME (BEAKER) (test eobc=515) 15.0 seconds 11.7-14.7 INR (BEAKER) (test igss=291) 1.2 <=5.9 RECOMMENDED COUMADIN/WARFARIN INR THERAPY RANGESSTANDARD DOSE: 2.0 - 3.0 Includes: PROPHYLAXIS forvenous thrombosis, systemic embolization; TREATMENT for venous thrombosis and/or pulmonary embolus.HIGH RISK: Target INR is 2.5-3.5 for patients with mechanical heart valves.PT/[id number] 18:45:00 Test Item Value Reference Range Comments PROTIME (BEAKER) (test okvk=252) 15.0 seconds 11.7-14.7 INR (BEAKER) (test unvm=005) 1.2 <=5.9 PARTIAL THROMBOPLASTIN TIME (BEAKER) (test 27.4 seconds 22.5-36.0 fxod=982) RECOMMENDED COUMADIN/WARFARIN INR THERAPY RANGESSTANDARD DOSE: 2.0 - 3.0 Includes: PROPHYLAXIS forvenous thrombosis, systemic embolization; TREATMENT for venous thrombosis and/or pulmonary embolus.HIGH RISK: Target INR is 2.5-3.5 for patients with mechanical heart valves.Prior to initiating heparinPrior to initiating [id number] 18:45:00 Test Item Value Reference Range Comments PARTIAL THROMBOPLASTIN TIME (BEAKER) (test 27.4 seconds 22.5-36.0 acsg=414) CBC W/PLT COUNT & AUTO [id number] 18:30:00 Test Item Value Reference Range Comments WHITE BLOOD CELL COUNT (BEAKER) (test vyjn=080) 12.4 K/ L 3.5-10.5 RED BLOOD CELL COUNT (BEAKER) (test nztv=401) 4.37 M/ L 4.63-6.08 HEMOGLOBIN (BEAKER) (test mayx=325) 12.3 GM/DL 13.7-17.5 HEMATOCRIT (BEAKER) (test arft=929) 37.9 % 40.1-51.0 MEAN CORPUSCULAR VOLUME (BEAKER) (test xwuh=085) 86.7 fL 79.0-92.2 MEAN CORPUSCULAR HEMOGLOBIN (BEAKER) (test 28.1 pg 25.7-32.2 drjr=205) MEAN CORPUSCULAR HEMOGLOBIN CONC (BEAKER) (test 32.5 GM/DL 32.3-36.5 ybmk=403) RED CELL DISTRIBUTION WIDTH (BEAKER) (test 13.6 % 11.6-14.4 sued=174) PLATELET COUNT (BEAKER) (test jbna=858) 185 K/CU MM 150-450 MEAN PLATELET VOLUME (BEAKER) (test vqbo=335) 12.0 fL 9.4-12.4 NUCLEATED RED BLOOD CELLS (BEAKER) (test 0 /100 WBC 0-0 lrrq=907) NEUTROPHILS RELATIVE PERCENT (BEAKER) (test 68 % stla=662) LYMPHOCYTES RELATIVE PERCENT (BEAKER) (test 23 % idyt=622) MONOCYTES RELATIVE PERCENT (BEAKER) (test 7 % bmjq=050) EOSINOPHILS RELATIVE PERCENT (BEAKER) (test 2 % ntdr=149) BASOPHILS RELATIVE PERCENT (BEAKER) (test 1 % xfal=621) NEUTROPHILS ABSOLUTE COUNT (BEAKER) (test 8.41 K/ L 1.78-5.38 egpl=288) LYMPHOCYTES ABSOLUTE COUNT (BEAKER) (test 2.79 K/ L 1.32-3.57 xqkg=877) MONOCYTES ABSOLUTE COUNT (BEAKER) (test 0.80 K/ L 0.30-0.82 utaz=608) EOSINOPHILS ABSOLUTE COUNT (BEAKER) (test 0.19 K/ L 0.04-0.54 ylda=358) BASOPHILS ABSOLUTE COUNT (BEAKER) (test 0.06 K/ L 0.01-0.08 hpwz=765) IMMATURE GRANULOCYTES-RELATIVE PERCENT (BEAKER) 1 % 0-1 (test kydc=9528) PLATELET [id number] 18:29:00 Test Item Value Reference Range Comments PLATELET COUNT (BEAKER) (test ukpb=159) 185 K/CU MM 150-450 RAD, CHEST, 1 VIEW, NON [id number] 15:52:00Reason for exam:->preopShould this be performed at the bedside?->YesFINAL REPORT CLINICAL HISTORY: preop TECHNIQUE: 1 view of the chest COMPARISON: None IMPRESSION: There are no focal infiltrates or pleural effusions. The cardiomediastinal silhouette is within normal limits for size. The visualized bones are intact. Signed: Venice Erwin MDReport Verified Date/Time: 2017 15:52:57 Reading Location: [facility] B1 [id number] Consult Reading Room
[2018-03-31 20:18] LABS: Absolute Lymphocytes (CBC) 2.4 K/uL (0.7-4.9); Absolute Monocytes 0.7 K/uL (0.1-1.3); Absolute Neutrophil 6.1 K/uL (1.8-8.0); Basophils % 0.9 % (0-1.3); Eosinophils % 2.7 % (0-4.4); Hematocrit 41.8 % (39.6-49.0); Lymphocytes % 25.4 % (15.3-44.8); MPV 10.1 fL (7.6-11.3); RBC Red Blood Cell Count 5.08 M/uL (4.33-5.43)
[2018-03-31 20:21] LABS: Protime INR 1.01
--- NOTE | 2018-03-31 20:22 | RAD REPORT ---
EXAM DESCRIPTION: RAD - Chest Single View - 03/31/2018 8:02 pm CLINICAL HISTORY: Chest pain, hypertension COMPARISON: October 2017 TECHNIQUE: AP portable chest image was obtained 1957 hour . FINDINGS: Lungs are clear. Lung markings are similar or less prominent than comparison. Heart and va sculature are normal. No measurable pleural effusion and no pneumothorax. No acute bony abnormality s een. No acute aortic findings suspected. IMPRESSION: No acute cardiopulmonary process. No significant interval change.
[2018-03-31 20:38] LABS: ALT/SGPT 27 U/L (12-78); AST/SGOT 13 U/L (15-37); BUN Blood Urea Nitrogen 20 mg/dL (7-18); Bicarbonate 24 mmol/L (21-32); Glucose Level 129 mg/dL (74-106); Sodium Level 141 mmol/L (136-145)
[2018-03-31 20:39] LABS: Albumin 3.8 g/dL (3.4-5.0); Alkaline Phosphatase 73 U/L (45-117); Bilirubin Direct < 0.1 mg/dL (0-0.2); Bilirubin Total 0.2 mg/dL (0.2-1.0); Magnesium 1.8 mg/dL (1.8-2.4); NT PRO-BNP 188 pg/mL (<125); Protein, Total 7.5 g/dL (6.4-8.2); Troponin (Emerg Dept Use Only) < 0.02 ng/mL (0.0-0.045)
[2018-03-31 20:42] LABS: Urine Blood NEGATIVE (NEG); Urine Glucose NEGATIVE (NEG); Urine Protein NEGATIVE (NEG)
[2018-03-31] MEDS ORDERED: ALPRAZOLAM 0.25 MG TABLET PO PRN (21:42)
[2018-03-31] MEDS ORDERED: MAGNESIUM HYDROXIDE 8% 30 ML PO PRN (21:42)
[2018-03-31] MEDS ORDERED: ACETAMINOPHEN 500 MG TAB PO PRN (21:42)
[2018-03-31] MEDS ORDERED: ONDANSETRON 4 MG/2 ML VIAL IV PRN (21:42)
--- NOTE | 2018-03-31 21:44 | EDPHYS ---
Physician Documentation [facility] Name: Rigo Gonzalez Age: 62 yrs Sex: Male : 1955 Arrival Date: 03/31/2018 Time: 19:29 Bed 20 Private MD: Candis Cifuentes H ED Physician Neil Peters HPI: 04/01 05:23 This 62 yrs old Male presents to ER via Ambulatory with complaints of Chest tw4 Pain > 30 y/o, Headache, High Blood Pressure, Dizziness. 05:23 The patient or guardian reports chest pain that is located primarily in the anterior tw4 chest wall. Onset: today. The pain does not radiate. Associated signs and symptoms: The patient has no apparent associated signs or symptoms. The chest pain is described as dull. Duration: The patient or guardian reports a single episode. Modifying factors: The symptoms are alleviated by nothing. the symptoms are aggravated by nothing. Severity of pain: At its worst the pain was moderate in the emergency department the pain is unchanged. The patient has not experienced similar symptoms in the past. Historical: - Allergies: 03/31 19:55 No Known Allergies; jd3 - Home Meds: 19:55 atorvastatin 80 mg oral tab 1 tab once daily [Active]; metoprolol tartrate 25 mg Oral jd3 tab 1 tab 2 times per day [Active]; torsemide 20 mg oral tab 1 tab once daily [Active]; aspirin 81 mg Oral chew 1 tab once daily [Active]; clonazepam 0.5 mg Oral tab 1 tab [Active]; fenofibrate 160 mg Oral tab 1 tab once daily [Active]; levothyroxine 175 mcg tab 1 tab once daily [Active]; lisinopril 10 mg Oral tab 1 tab once daily [Active]; metformin 500 mg Oral tab 1 tab 2 times per day [Active]; - PMHx: 19:55 Diabetes - NIDDM; Hypothyroidism; neuropathy; Hypertension; Vertigo; jd3 - PSHx: 19:55 Back sx 2013; Heart Surgery; jd3 - Immunization history:: Adult Immunizations up to date. - Social history:: Smoking status: Patient/guardian denies using tobacco, but has a distant history of tobacco abuse. - Ebola Screening: : Patient negative for fever greater than or equal to 101.5 degrees Fahrenheit, and additional compatible Ebola Virus Disease symptoms. ROS: 04/01 05:23 Constitutional: Negative for fever, chills, and weight loss, Eyes: Negative for injury, tw4 pain, redness, and discharge, Respiratory: Negative for shortness of breath, cough, wheezing, and pleuritic chest pain, Abdomen/GI: Negative for abdominal pain, nausea, vomiting, diarrhea, and constipation, Back: Negative for injury and pain, MS/Extremity: Negative for injury and deformity, Skin: Negative for injury, rash, and discoloration. Cardiovascular: Positive for chest pain, Negative for edema, orthopnea, palpitations. Exam: 05:23 Constitutional: This is a well developed, well nourished patient who is awake, alert, tw4 and in no acute distress. Head/Face: Normocephalic, atraumatic. Chest/axilla: Normal chest wall appearance and motion. Nontender with no deformity. No lesions are appreciated. Cardiovascular: Regular rate and rhythm with a normal S1 and S2. No gallops, murmurs, or rubs. Normal PMI, no JVD. No pulse deficits. Respiratory: Lungs have equal breath sounds bilaterally, clear to auscultation and percussion. No rales, rhonchi or wheezes noted. No increased work of breathing, no retractions or nasal flaring. Abdomen/GI: Soft, non-tender, with normal bowel sounds. No distension or tympany. No guarding or rebound. No evidence of tenderness throughout. Back: No spinal tenderness. No costovertebral tenderness. Full range of motion. MS/ Extremity: Pulses equal, no cyanosis. Neurovascular intact. Full, normal range of motion. Neuro: Awake and alert, GCS 15, oriented to person, place, time, and situation. Cranial nerves II-XII grossly intact. Motor strength 5/5 in all extremities. Sensory grossly intact. Cerebellar exam normal. Normal gait. Vital Signs: 03/31 19:56 BP 156 / 62; Pulse 87; Resp 18 S; Temp 97.9(O); Pulse Ox 98% on R/A; Weight 122.47 kg jd3 (R); Height 6 ft. 1 in. (185.42 cm) (R); Pain 8/10; 20:35 BP 138 / 69; Pulse 91; Resp 15 S; Pulse Ox 98% on R/A; jd3 21:38 BP 119 / 67; Pulse 92; Resp 20 S; Pulse Ox 99% on R/A; Pain 0/10; jd3 21:58 BP 148 / 77; Pulse 89; Resp 19 S; Pulse Ox 97% on R/A; jd3 19:56 Body Mass Index 35.62 (122.47 kg, 185.42 cm) jd3 MDM: 19:32 Patient medically screened. 04/01 05:23 HEART Score: History: Moderately Suspicious (1), ECG: Non specific repolarization tw4 disturbance / LBTB / PM (1), Age: > 45 and < 65 years (1), Risk Factors: > or = 3 Risk factors for atherosclerotic disease (2), Troponin: < or = 1 x Normal Limit (0). Data reviewed: vital signs, nurses notes. Data interpreted: monitor and storage bin tender: rhythm is normal sinus rhythm, Pulse oximetry: Interpretation: normal. Test interpretation: by ED physician or midlevel provider: ECG, plain radiologic studies. Counseling: I had a detailed discussion with the patient and/or guardian regarding: the historical points, exam findings, and any diagnostic results supporting the discharge/admit diagnosis. Physician consultation: Brody Silva MD regarding admission, to the telemetry unit. patient's condition, and will see patient in inpatient room. 03/31 19:31 Order name: Basic Metabolic Panel; Complete Time: 21:40 03/31 21:40 Interpretation: Normal except: CL 109; GLUC 129; BUN 20; CRE 1.36; GFR 53. 03/31 19:31 Order name: CBC with Diff; Complete Time: 21:41 03/31 21:41 Interpretation: Normal except: HGB 13.5; MCH 26.6; RDW 16.4. 03/31 19:31 Order name: LFT's; Complete Time: 21:41 03/31 21:41 Interpretation: Normal except: AST 13; GLOB 3.7; A/G 1.0. 03/31 19:31 Order name: Magnesium; Complete Time: 21:41 03/31 21:41 Interpretation: Within normal limits: MG 1.8. 03/31 19:31 Order name: NT PRO-BNP; Complete Time: 21:41 03/31 21:41 Interpretation: Normal except: NT PRO-BNP 188. tw4 03/31 19:31 Order name: PT-INR; Complete Time: 21:41 tw4 03/31 21:41 Interpretation: Within normal limits: PT 11.9. tw4 03/31 19:31 Order name: Troponin (emerg Dept Use Only); Complete Time: 21:41 tw 03/31 21:41 Interpretation: Within normal limits: TROPED < 0.02. [facility] 03/31 20:21 Order name: Urine Dipstick--Ancillary (enter results) 2 03/31 21:47 Order name: Urinalysis [facility] 03/31 21:47 Order name: CBC with Automated Diff [facility] 03/31 21:47 Order name: CBC with Automated Diff [facility] 03/31 21:47 Order name: Comprehensive Metabolic Panel [facility] 03/31 21:47 Order name: Comprehensive Metabolic Panel [facility] 03/31 21:47 Order name: Lipid Profile [facility] 03/31 19:31 Order name: XRAY Chest (1 view); Complete Time: 21:41 [facility] 03/31 21:41 Interpretation: No acute disease. tw4 03/31 19:31 Order name: EKG; Complete Time: 19:32 4 03/31 19:31 Order name: Cardiac monitoring; Complete Time: 19:38 4 03/31 19:31 Order name: EKG - Nurse/Tech; Complete Time: 19:38 4 03/31 19:31 Order name: IV Saline Lock; Complete Time: 20:09 [facility] 03/31 21:46 Order name: CONS Physician Consult [facility] 03/31 21:46 Order name: EKG Electrocardiogram [facility] 03/31 21:46 Order name: EKG Electrocardiogram [facility] 03/31 21:47 Order name: Lipid Profile [facility] 03/31 21:47 Order name: Magnesium [facility] 03/31 21:47 Order name: Magnesium [facility] 03/31 21:47 Order name: Phosphorus [facility] 03/31 21:47 Order name: Phosphorus [facility] 03/31 21:47 Order name: Troponin I [facility] 03/31 21:47 Order name: Troponin I [facility] 03/31 21:47 Order name: Troponin I [facility] 03/31 19:31 Order name: Labs collected and sent; Complete Time: 20:09 tw4 03/31 19:31 Order name: O2 Per Protocol; Complete Time: 19:38 tw4 03/31 19:31 Order name: O2 Sat Monitoring; Complete Time: 19:39 4 Administered Medications: No medications were administered Disposition: 05:26 Chart complete. Disposition: 03/31/18 21:43 Hospitalization ordered by Brody Silva for Observation. Preliminary diagnosis is Chest pain, unspecified. - Bed requested for Telemetry/MedSurg (observation). - Status is Observation. jd3 - Condition is Stable. - Problem is new. - Symptoms have improved. UTI on Admission? No Signatures: Dispatcher [employer] EDAngie Beasley RN RN cg Jim Arevalo RN RN jd3 Wadley, Terrence, MD MD 4 Corrections: (The following items were deleted from the chart) 03/31 22:15 21:43 Hospitalization Ordered by Brody Silva MD for Observation. Preliminary cg diagnosis is Chest pain, unspecified. Bed requested for Telemetry/MedSurg (observation). Status is Observation. Condition is Stable. Problem is new. Symptoms have improved. UTI on Admission? No. tw4 22:57 22:15 03/31/2018 21:43 Hospitalization Ordered by Brody Silva MD for Observation. jd3 Preliminary diagnosis is Chest pain, unspecified. Bed requested for Telemetry/MedSurg (observation). Status is Observation. Condition is Stable. Problem is new. Symptoms have improved. UTI on Admission? No. cg
--- NOTE | 2018-03-31 21:44 | ER ---
Nurse's Notes [facility] Name: Rigo Gonzalez Age: 62 yrs Sex: Male : 1955 Arrival Date: 03/31/2018 Time: 19:29 Bed 20 Private MD: Candis Cifuentes H Diagnosis: Chest pain, unspecified Presentation: 03/31 19:47 Presenting complaint: Patient states: "I am having chest pain and high blood pressure. jd3 I had a heart surgery in this past November, I have been getting dizzy and nauseous.". Transition of care: patient was not received from another setting of care. Onset of symptoms was March 31, 2018. Risk Assessment: Do you want to hurt yourself or someone else? Patient reports no desire to harm self or others. Initial Sepsis Screen: Does the patient meet any 2 criteria? No. Patient's initial sepsis screen is negative. Does the patient have a suspected source of infection? No. Patient's initial sepsis screen is negative. Care prior to arrival: None. 19:47 Method Of Arrival: Ambulatory j 19:47 Acuity: HESHAM 3 jd3 Historical: - Allergies: 19:55 No Known Allergies; jd3 - Home Meds: 19:55 atorvastatin 80 mg oral tab 1 tab once daily [Active]; metoprolol tartrate 25 mg Oral jd3 tab 1 tab 2 times per day [Active]; torsemide 20 mg oral tab 1 tab once daily [Active]; aspirin 81 mg Oral chew 1 tab once daily [Active]; clonazepam 0.5 mg Oral tab 1 tab [Active]; fenofibrate 160 mg Oral tab 1 tab once daily [Active]; levothyroxine 175 mcg tab 1 tab once daily [Active]; lisinopril 10 mg Oral tab 1 tab once daily [Active]; metformin 500 mg Oral tab 1 tab 2 times per day [Active]; - PMHx: 19:55 Diabetes - NIDDM; Hypothyroidism; neuropathy; Hypertension; Vertigo; jd3 - PSHx: 19:55 Back sx 2013; Heart Surgery; jd3 - Immunization history:: Adult Immunizations up to date. - Social history:: Smoking status: Patient/guardian denies using tobacco, but has a distant history of tobacco abuse. - Ebola Screening: : Patient negative for fever greater than or equal to 101.5 degrees Fahrenheit, and additional compatible Ebola Virus Disease symptoms. Screenin:58 Abuse screen: Denies threats or abuse. Nutritional screening: No deficits noted. jd3 Tuberculosis screening: No symptoms or risk factors identified. Fall Risk Fall in past 12 months (25 points). Ambulatory Aid- Crutches/Cane/Walker (15 pts). Gait- Weak (10 pts.). Mental Status- Oriented to own ability (0 pts). Total Lacy Fall Scale indicates High Risk Score (45 or more points). Fall prevention measures have been instituted. Side Rails Up X 2 Placed Close to Nursing Station Frequent Obs/Assessments Occuring Family Present and informed to notify staff if the need to leave the bedside. Assessment: 19:57 General: Appears in no apparent distress. uncomfortable, Behavior is calm, cooperative, jd3 appropriate for age. Pain: Complains of pain in chest Pain does not radiate. Quality of pain is described as sharp, Pain began gradually. Neuro: Level of Consciousness is awake, alert, obeys commands, Oriented to person, place, time, situation, Reports dizziness. Cardiovascular: Capillary refill < 3 seconds Patient's skin is warm and dry. Rhythm is regular. Respiratory: Airway is patent Respiratory effort is even, unlabored, Respiratory pattern is regular, symmetrical. GI: Reports nausea, Patient currently denies abdominal pain, diarrhea, vomiting. : No signs and/or symptoms were reported regarding the genitourinary system. EENT: No signs and/or symptoms were reported regarding the EENT system. Derm: Skin is intact, Skin is dry, Skin is normal, Skin temperature is warm. Musculoskeletal: Circulation, motion, and sensation intact. Range of motion: intact in all extremities. 20:35 Reassessment: Patient appears in no apparent distress at this time. No changes from jd3 previously documented assessment. Patient and/or family updated on plan of care and expected duration. Pain level reassessed. Patient is alert, oriented x 3, equal unlabored respirations, skin warm/dry/pink. 21:39 Reassessment: Patient appears in no apparent distress at this time. Patient and/or jd3 family updated on plan of care and expected duration. Pain level reassessed. Patient is alert, oriented x 3, equal unlabored respirations, skin warm/dry/pink. Patient denies pain at this time. Patient states feeling better. 21:58 Reassessment: Patient appears in no apparent distress at this time. No changes from j previously documented assessment. Patient and/or family updated on plan of care and expected duration. Pain level reassessed. Patient is alert, oriented x 3, equal unlabored respirations, skin warm/dry/pink. Vital Signs: 19:56 BP 156 / 62; Pulse 87; Resp 18 S; Temp 97.9(O); Pulse Ox 98% on R/A; Weight 122.47 kg jd3 (R); Height 6 ft. 1 in. (185.42 cm) (R); Pain 8/10; 20:35 BP 138 / 69; Pulse 91; Resp 15 S; Pulse Ox 98% on R/A; jd3 21:38 BP 119 / 67; Pulse 92; Resp 20 S; Pulse Ox 99% on R/A; Pain 0/10; jd3 21:58 BP 148 / 77; Pulse 89; Resp 19 S; Pulse Ox 97% on R/A; jd3 19:56 Body Mass Index 35.62 (122.47 kg, 185.42 cm) jd3 ED Course: 19:29 Patient arrived in ED. am2 19:29 Candis Cifuentes DO is Private Physician. am2 19:31 Neil Peters MD is Attending Physician. tw4 19:38 Jim Arevalo, RN is Primary Nurse. jd3 19:49 Triage completed. jd3 19:57 Arm band placed on. jd3 19:57 EKG completed in triage. Results shown to MD. jd3 19:59 X-ray completed. Portable x-ray completed in exam room. Patient tolerated procedure jb2 well. 19:59 Patient has correct armband on for positive identification. Bed in low position. Call j light in reach. Side rails up X2. Adult w/ patient. conveyor monitor on. Pulse ox on. NIBP on. 19:59 Patient maintains SpO2 saturation greater than 95% on room air. jd3 20:06 XRAY Chest (1 view) In Process Unspecified. EDMS 20:08 Inserted saline lock: 22 gauge in right antecubital area, using aseptic technique. jd3 Blood collected. placed by [employer]. 21:42 Brody Silva MD is Hospitalizing Provider. tw4 22:48 No provider procedures requiring assistance completed. Patient admitted, IV remains in jd3 place. Administered Medications: No medications were administered Outcome: 21:43 Decision to Hospitalize by Provider. tw4 22:49 Admitted to Tele accompanied by tech, via wheelchair, room 408, with chart, Report jd3 called to Juan Hodge RN 22:49 Condition: stable 22:49 Instructed on the need for admit, Demonstrated understanding of instructions. 22:57 Patient left the ED. jd3 Signatures: Dispatcher [employer] EDMS Jonnathan Kwok Amanda am2 Davies, Jonathon RN RN jd3 Neil Peters MD MD tw4 Corrections: (The following items were deleted from the chart) 21:39 21:38 BP 119 / 67; Pulse 92bpm; Resp 20bpm; Spontaneous; Pulse Ox 99% RA; jd3 jd3
[2018-03-31 23:51] VITALS: BMI 35.6
[2018-04-01] MEDS: NA CHLORIDE 0.9% 1,000 ML IV SCH ×2 (01:24→11:20)
[2018-04-01 04:18] LABS: Absolute Lymphocytes (CBC) 3.2 K/uL (0.7-4.9); Absolute Monocytes 0.7 K/uL (0.1-1.3); Absolute Neutrophil 5.5 K/uL (1.8-8.0); Basophils % 0.6 % (0-1.3); Eosinophils % 2.1 % (0-4.4); Hematocrit 38.7 % (39.6-49.0); Lymphocytes % 33.4 % (15.3-44.8); MPV 10.1 fL (7.6-11.3); Monocytes % 7.2 % (3.3-12.3); RBC Red Blood Cell Count 4.74 M/uL (4.33-5.43)
[2018-04-01 04:32] LABS: Albumin 3.6 g/dL (3.4-5.0); Bilirubin Total 0.3 mg/dL (0.2-1.0); Magnesium 1.9 mg/dL (1.8-2.4); Phosphorus 3.6 mg/dL (2.5-4.9); Protein, Total 7.1 g/dL (6.4-8.2)
[2018-04-01] MEDS ORDERED: LORazepam 2 MG/ML VIAL IV ONE (05:44)
[2018-04-01] MEDS ORDERED: LEVOTHYROXINE SOD 0.1 MG TAB PO SCH (06:30)
[2018-04-01] MEDS ORDERED: LEVOTHYROXINE SOD 0.075 MG TAB PO SCH (06:30)
[2018-04-01] MEDS ORDERED: HOME MED 1 EA UNK (Levothyroxine Sodium [Levothyroxine Sodium] 175 MCG) PO SCH (09:00)
[2018-04-01] MEDS ORDERED: FENOFIBRATE 160 MG TAB PO SCH (09:00)
[2018-04-01] MEDS ORDERED: LISINOPRIL 10 MG TAB PO SCH (09:00)
[2018-04-01] MEDS ORDERED: ENOXAPARIN 40 MG/0.4 ML SQ SCH (09:00)
[2018-04-01] MEDS ORDERED: METOPROLOL TAR 25 MG TAB PO SCH (09:00)
[2018-04-01] MEDS ORDERED: ASPIRIN 81 MG CHEWABLE TABLET PO SCH (09:00)
[2018-04-01 09:07] VITALS: O2SAT 93
[2018-04-01] MEDS: METFORMIN HCL 500 MG TAB PO SCH ×2 (10:59→16:41)
--- NOTE | 2018-04-01 11:05 | RAD REPORT ---
EXAM DESCRIPTION: MRI - Brain Wo Cont - 04/01/2018 10:50 am CLINICAL HISTORY: HEadache s/p syncopal event Syncope, head injury after fall. Severe headache. COMPARISON: MRI BRAIN WITHOUT CONTRAST dated 05/27/2014 TECHNIQUE: Multi-sequence, multiplanar MR imaging of the brain was performed without contrast. FINDINGS: No intracranial hemorrhage, hydrocephalus or extra-axial fluid collections.Few small T2 an d FLAIR hyperintensities are present in the periventricular region, likely representing mild chronic microvascular ischemic changes. No edema or shift of midline structures. No findings to suspect brain mass. DWI is negative for acute CVA. Midline structures are normally formed. Mastoid air cells and paranasal sinuses are clear. IMPRESSION: No acute or concerning intracranial abnormalities.
--- NOTE | 2018-04-01 16:02 | P.DS ---
Admission Date: 03/31/18 Discharge Date: 04/01/18 Disposition: ROUTINE DISCHARGE Discharge Condition: GOOD Consultations: Cardiology - Problems (1) Syncope Current Visit: Yes Status: Acute Qualifiers: Encounter type: initial encounter Brief History of Present Illness: See HPI Hospital Course: Overall during the hospital stay patient remained stable Patient was initially admitted to the hospital for having chest discomfort and fall at the house. Patient stated that after he took his blood pressure and diabetic medication he started feeling dizzy and had a fall in the house. 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 Patient had a head CT and MRI done here to rule out any acute abnormality which were both within normal limits. Patient also had cardiology consulted here in the hospital who recommended the patient could have outpatient workup. Troponin x2 was negative. EKG was within normal limits. Patient then worked with physical therapy and was able to ambulate well. Patient then was discharged home under stable condition. Patient was asked to take his blood pressure every day and blood sugar before taking the medication. To hold the medication of blood pressures lower blood sugars low. And was asked to follow up with his primary care provider in about 1-2 days post discharge Vital Signs/Physical Exam: Temp Pulse Resp BP Pulse Ox 98 F 79 16 124/65 94 04/01/18 12:00 04/01/18 12:00 04/01/18 12:00 04/01/18 12:00 04/01/18 12:00 General: Alert, In no apparent distress HEENT: Atraumatic, PERRLA, EOMI Neck: Supple, JVD not distended Respiratory: Clear to auscultation bilaterally, Normal air movement Cardiovascular: Regular rate/rhythm, Normal S1 S2 Gastrointestinal: Normal bowel sounds, No tenderness Musculoskeletal: No tenderness Integumentary: No rashes Neurological: Normal speech, Normal tone, Normal affect Lymphatics: No axilla or inguinal lymphadenopathy Laboratory Data at Discharge: WBC 9.7 K/uL (4.3-10.9) 04/01/18 03:41 Hgb 12.8 g/dL (13.6-17.9) L 04/01/18 03:41 Hct 38.7 % (39.6-49.0) L 04/01/18 03:41 Plt Count 206 K/uL (152-406) 04/01/18 03:41 PT 11.9 SECONDS (9.5-12.5) 03/31/18 20:07 INR 1.01 03/31/18 20:07 Sodium 144 mmol/L (136-145) 04/01/18 03:41 Potassium 4.0 mmol/L (3.5-5.1) 04/01/18 03:41 BUN 22 mg/dL (7-18) H 04/01/18 03:41 Creatinine 1.18 mg/dL (0.55-1.3) 04/01/18 03:41 Glucose 87 mg/dL (74-106) 04/01/18 03:41 Phosphorus 3.6 mg/dL (2.5-4.9) 04/01/18 03:41 Magnesium 1.9 mg/dL (1.8-2.4) 04/01/18 03:41 Total Bilirubin 0.3 mg/dL (0.2-1.0) 04/01/18 03:41 AST 11 U/L (15-37) L 04/01/18 03:41 ALT 23 U/L (12-78) 04/01/18 03:41 Alkaline Phosphatase 61 U/L (45-117) 04/01/18 03:41 Troponin I < 0.02 ng/mL (0.0-0.045) 04/01/18 06:31 Triglycerides 144 mg/dL (<150) 04/01/18 03:41 Cholesterol 144 mg/dL (<200) 04/01/18 03:41 HDL Cholesterol 44 mg/dL (40-60) 04/01/18 03:41 Cholesterol/HDL Ratio 3.27 04/01/18 03:41 Home Medications: Aspirin 81 mg PO DAILY 04/01/18 Atorvastatin Calcium [Lipitor] 80 mg PO BEDTIME 04/01/18 Fenofibrate Nanocrystallized [Fenofibrate] 160 mg PO DAILY 04/01/18 Levothyroxine Sodium 175 mcg PO DAILY 04/01/18 Lisinopril [Prinivil*] 10 mg PO DAILY 04/01/18 Metformin HCl [Glucophage*] 500 mg PO BIDWM 04/01/18 Metoprolol Tartrate [Lopressor*] 1 tab PO BID 04/01/18 Torsemide [Demadex*] 20 mg PO M,W,F 04/01/18 clonazePAM [Clonazepam] 2 mg PO BEDTIME 04/01/18 Diet: Regular Activity: Ad yusra Followup: Heather De Guzman MD [ACTIVE - CAN ADMIT] - 1 Week
[2018-04-01 16:32] VITALS: BP 135/78; TEMP 98.2
--- NOTE | 2018-04-01 17:08 | EKG ---
Test Date: 2018-04-01 Test Time: 11:56:26 Access Representative: CASSIA MEASUREMENT RESULTS: Intervals: Rate: 66 AZ: 148 QRSD: 102 QT: 396 QTc: 415 [place]: P: 33 [place]: 148 QRS: 62 T: 60 INTERPRETIVE STATEMENTS: Normal sinus rhythm Low voltage QRS Cannot rule out Anterior infarct, age undetermined Abnormal ECG Compared to ECG 03/31/2018 19:41:07 Low QRS voltage now present Myocardial infarct finding still present Electronically Signed On 04-01-18 17:06:48 SALT MACHINE OPERATOR by Javier Winchester
--- NOTE | 2018-04-01 17:11 | EKG ---
Test Date: 2018-03-31 Test Time: 19:41:07 Burlap Spreader: FREDDY MEASUREMENT RESULTS: Intervals: Rate: 91 OK: 146 QRSD: 94 QT: 370 QTc: 455 Jones: P: 3 OK: 146 QRS: 57 T: 42 INTERPRETIVE STATEMENTS: Normal sinus rhythm Cannot rule out Anterior infarct, age undetermined Abnormal ECG Compared to ECG 06/23/2013 23:19:07 Myocardial infarct finding now present Electronically Signed On 04-01-18 17:07:23 TYPER by Javier Winchester
--- NOTE | 2018-04-01 20:33 | P.HP ---
Certification for Inpatient Patient admitted to: Observation With expected LOS: <2 Midnights Patient will require the following post-hospital care: None Practitioner: I am a practitioner with admitting privileges, knowledge of patient current condition, hospital course, and medical plan of care. Services: Services provided to patient in accordance with Admission requirements found in Title 42 Section 412.3 of the Code of Federal Regulations Patient History Date of Service: 03/31/18 Reason for admission: Patient with headache; also with agitation History of Present Illness: Patient is a 62-year-old gentleman who came to the hospital because he was just not feeling well. He gets extreme agitation from the slightest things. He feels a lot a head pressure and he apparently passed out for earlier this month. He is not sure if he tripped and fell on something in his head or if he completely passed out. He recently had a coronary artery bypass grafting 5 months ago. He has been doing well since that time. He does have occasional chest pressure but this is more related to his surgical scar site. He came into the hospital because he said he had just a lot of pressure on his head. He did feel right. He came into the hospital for further evaluation. He has had carotid Dopplers recently which were negative. He will be admitted for further evaluation. Allergies No Known Allergies Allergy (Verified 03/31/18 23:35) Home Medications: Aspirin 81 mg PO DAILY 04/01/18 Atorvastatin Calcium [Lipitor] 80 mg PO BEDTIME 04/01/18 Fenofibrate Nanocrystallized [Fenofibrate] 160 mg PO DAILY 04/01/18 Levothyroxine Sodium 175 mcg PO DAILY 04/01/18 Lisinopril [Prinivil*] 10 mg PO DAILY 04/01/18 Metformin HCl [Glucophage*] 500 mg PO BIDWM 04/01/18 Metoprolol Tartrate [Lopressor*] 1 tab PO BID 04/01/18 Torsemide [Demadex*] 20 mg PO M,W,F 04/01/18 clonazePAM [Clonazepam] 2 mg PO BEDTIME 04/01/18 - Past Medical/Surgical History Has patient received pneumonia vaccine in the past: Yes Diabetic: Yes -: hyperlipidemia -: hypertension -: cad -: insomnia -: thyroid -: niddm -: neuropathy -: vertigo -: cabg x 2 (6 months ago) -: back surgeries - Family History Mother Medical History: Diabetes Father Medical History: Heart disease - Social History Smoking Status: Former smoker Alcohol use: No CD- Drugs: No Caffeine use: Yes Place of Residence: Home Review of Systems 10-point ROS is otherwise unremarkable Physical Examination - Vital Signs Temperature: 98.2 F Blood Pressure: 135/78 Pulse: 77 Respirations: 16 Pulse Ox (%): 96 - Physical Exam General: Alert, In no apparent distress, Oriented x3, Cachectic HEENT: Atraumatic, Normocephalic, PERRLA Neck: Supple, 2+ carotid pulse no bruit, JVD not distended, No Thyromegaly Respiratory: Clear to auscultation bilaterally, Normal air movement Cardiovascular: Normal pulses, Regular rate/rhythm, Normal S1 S2, No murmurs Gastrointestinal: Normal bowel sounds, Hypoactive, Soft and benign, Non- distended, No tenderness, No rebound, No guarding Musculoskeletal: No clubbing, No swelling Integumentary: No rashes Neurological: Normal gait, Normal strength at 5/5 x4 extr, Normal tone, Sensation intact, Cranial nerves 3-12 intact, Normal reflexes 2+ - Studies Laboratory Data (last 24 hrs) 03/31/18 20:07: Sodium 141, Potassium 4.0, BUN 20 H, Creatinine 1.36 H, Glucose 129 H, Magnesium 1.8, Total Bilirubin 0.2, AST 13 L, ALT 27, Alkaline Phosphatase 73 Assessment & Plan - Problems (Diagnosis) (1) Headache Status: Acute (2) Hx of CABG Status: Acute (3) CAD (coronary artery disease) Status: Acute (4) Chest pain Status: Acute (5) HTN (hypertension) Status: Acute (6) DM2 (diabetes mellitus, type 2) Status: Acute (7) Dyslipidemia Status: Acute - Plan 1. MRI of the brain 2. Echocardiogram 3. Anti-platelet therapy and statin therapy 4. Cardiology consultation 5. Physical therapy 6. DVT prophylaxis Discharge Plan: Home Plan to discharge in: 24 Hours - Advance Directives Does patient have a Living Will: No Does patient have a Durable POA for Healthcare: No - Code Status/Comfort Care Code Status Assessed: Yes Code Status: Full Code Critical Care: No Time Spent Managing PTS Care (In Minutes): 50
[2018-04-01] MEDS ORDERED: clonazePAM 1 MG TAB PO SCH (21:00)
[2018-04-01] MEDS ORDERED: ATORVASTATIN 80 MG TAB PO SCH (21:00)
--- NOTE | 2018-04-02 00:34 | CON ---
Date of Consultation: 03/31/2018 Reason For Consultation: Atypical chest pain and dizziness. History Of Present Illness: Mr. Gonzalez is a 62-year-old male, known to me from [facility]. He has a history of diabetes, hypertension, vertigo, neuropathy, dyslipidemia, and hyp othyroidism. In October 2017, I did a heart catheterization on him and I send him to Dr. Hdez for a coronary artery bypass surgery. He came in mostly with dizziness that is positional whether he is standing up or lying down with some nausea. No diaphoresis or vomiting. Denied PND, orthopnea, peda l edema, palpitations, or syncope. Had some very atypical sharp chest pain when he took a deep breat h. Allergies: NONE. Review of Systems: Negative. Social History: Negative. Family History: Negative. Medications: At home include Lipitor, Synthroid, metoprolol, aspirin, Demadex, metformin, lisinopril , fenofibrate. Physical Examination: General: Mr. Gonzalez was slightly anxious, otherwise in no acute distress. HEENT: Negative. Neck: Supple without any bruit, lymphadenopathy, JVD, or thyromegaly. Chest: Clear to auscultation and percussion. Cardiac: Revealed a regular rhythm and rate. No murmurs, gallops, or rubs. Abdomen: Benign. Extremities: Revealed no clubbing, cyanosis, or edema. Diagnostic Data: His creatinine is 1.36, glucose is 129. BNP is 188. Chest x-ray is negative. Impression And Plan: 1.I think Mr. Gonzalez's symptoms are secondary to benign positional vertigo. 2.Hypertension, well controlled. 3.Chest pain, atypical, noncardiac. 4.Diabetes. 5.Hypertension. 6.Status post CABG in October 2017, stable. 7.His other problems include neuropathy, dyslipidemia and hypothyroidism, all of which are stable. He is having a CT of his head today and I agree with that. I do not recommend any cardiac workup at this point. I will see him in the office in the next couple of weeks as an outpatient. He can go ho me whenever it is okay with Dr. Silva. AMANDA/ADISL Voice ID: [id number] Report ID: [id number]
[2018-04-02] MEDS ORDERED: TORSEMIDE 20 MG TAB PO SCH (17:00)
== END 2018-04-01 17:24 | disposition home or self-care (01) ==
LOC: ER 19:25 → ERHOLD 21:54 → 4TH 22:54
PROVIDERS: ADMIT Hospitalist; ATTEND Hospitalist
DX: R55 Syncope and collapse (principal); R07.9 Chest pain, unspecified; E78.5 Hyperlipidemia, unspecified; I10 Essential (primary) hypertension; I25.10 Atherosclerotic heart disease of native coronary artery without angina pectoris; E11.9 Type 2 diabetes mellitus without complications; E03.9 Hypothyroidism, unspecified; Z95.1 Presence of aortocoronary bypass graft; Z79.82 Long term (current) use of aspirin
CPT/HCPCS: 36415; 70551; 71045; 80048; 80053; 80061; 80076; 81003; 82962; 83735; 83880; 84100; 84484; 85025; 85610; 93005; 99285; G0378; J1650; J7030

== ENCOUNTER 2022-02-02 14:48 | Emergency (ER) | payer OTHER ==
--- OUTSIDE RECORDS SUMMARY | 2022-02-02 15:23 | XMS REPORT | Continuity of Care Document ---
:1955 Author Organization [facility] t Address [address] [place] [address] Care Team Providers Name Role Phone [facility] Primary Care Physician Bo Schmidt Attending Clinician Doctor Unassigned, [place] Attending Clinician Unavailable Javier Raman MD Attending Clinician 1, [facility] Sleep Lab Bed Attending Clinician Unavailable JAVIER RAMAN Attending Clinician Unavailable JAVIER RAMAN Attending Clinician Unavailable Only, Adc Test Attending Clinician Unavailable DAVIAN GARAY Attending Clinician Unavailable Jamie Rushing Attending Clinician Mark Anthony Jennings Attending Clinician SCHUYLER CASTELLANOS Admitting Clinician Unavailable Mark Anthony Jennings Admitting Clinician Payers Payer Name Policy Type Policy Number Effective Date Expiration Date S ource Problems Condition Condition Condition Status Onset Resolution Last Treating Co mments Source Name Details Category Date Date Treatment Clinician Date Osteoarthr Osteoarthr Disease Active 2018- M [facility] left knee left [facility] Disease [facility] due to due to 00 Center lipid rich lipid rich plaque plaque CAD CAD Disease Active [facility] ([facility] (coronary 8 [facility] artery artery 00:00: Medical disease) disease) 00 Center M51.26 - M51.26 - Diagnosis Active 2015-06-09 Memoria OTHER OTHER -15 07:40:00 l INTERVERTE INTERVERTE 00:01: He tory BRAL DISC BRAL DISC 00 DISP DISP Active 04/18/2015 GIANFRANCO Dennison 724.02 - 724.02 - Diagnosis Active 2014-12-27 Memoria "SPIN "SPIN 11-19 16:22:00 l STEN,LUMBR STEN,LUMBR 00:01: He rmann " " Active 00 11/19/2014 GIANFRANCO [place] LUMBAR LUMBAR Diagnosis Active 2014-07-23 Me moria DDD, DDD, 07-15 08:51:00 l SPINAL SPINAL 00:00: Juma STENOSIS, STENOSIS, 00 HERNIATED HERNIATED D D Active 07/15/2014 [facility] BACK PAIN BACK PAIN Diagnosis Active 2014-07-16 Memoria Active 07-15 10:33:00 l 07/15/2014 00:00: Flex mahmood [address] Degenerati Degenerat Problem Active 2021-12-09 Memoria on of ion of 07-07 23:11:35 l lumbar lumbar 00:00: Juma interverte interverte 00 bral disc bral disc (disorder) (disorder) Active 07/07/2014 Problem 12/09/2021 Data migrated from [employer] on 10/26/14. Anneliese Patel GIANFRANCO Dennison GIANFRANCO Quintanilla Low back Low back Problem Active 2021-12-09 Memoria pain pain 07-07 23:11:35 l (disorder) (disorder) 00:00: He rmann Active 00 07/07/2014 Problem 12/09/2021 Data migrated from [employer] on 10/26/14. CHERELLE Easley MH [facility]ID [place] Lumbar Lumbar Problem Active 2021-12-09 Deejay lula radiculopa radiculopa 07-07 23:11:35 l thy thy 00:00: [place] (disorder) (disorder) 00 Active 07/07/2014 Problem 12/09/2021 Data migrated from [employer] on 10/26/14. Anneliese Patel, GIANFRANCO Dennison, GIANFRANCO Quintanilla Spinal Spinal Problem Active 2021-12-09 Deejay lula stenosis stenosis 07-07 23:11:35 l of lumbar of lumbar 00:00: Herm kaylah region region 00 (disorder) (disorder) Active 07/07/2014 Problem 12/09/2021 Data migrated from [employer] on 10/26/14. [facility] GIANFRANCO Dennison, GIANFRANCO Quintanilla Unsteady Unsteady Problem Active 2021-12-09 Memoria gait gait 07-07 23:11:35 l (finding) (finding) 00:00: Herm kaylah Active 00 07/07/2014 Problem 12/09/2021 Data migrated from [employer] on 10/26/14. Anneliese Patel, GIANFRANCO Dennison, GIANFRANCO Quintanilla Respirator Respirator Disease Active [facility] insufficie insufficie Me dical [facility] Center Final: Final: Problem 2014-07-29 Deejay lula 07/29/2014 00:10:36 l [facility] Arthritis Arthritis Problem Resolve 2021-12-09 Memoria (disorder) (disorder) d 23:11:35 l Resolved [place] Problem 12/09/2021 [facility], GIANFRANCO Dennison, GIANFRANCO Quintanilla Degenerati Degenerat Problem Active 2022-01-08 Memoria on of ion of 04:58:44 l interverte interverte Wilman spears bral disc bral disc (disorder) (disorder) Active Problem 01/08/2022 [facility] GIANFRANCO Dennison, GIANFRANCO Quintanilla Diabetes Diabetes Problem Active 2022-01-08 Memoria mellitus mellitus 04:58:44 l (disorder) (disorder) He rmann Active Problem 01/08/2022 [facility], GIANFRANCO Dennison, GIANFRANCO Quintanilla Hypertensi Hypertens Problem Active 2022-01-08 Memoria ve dani 04:58:44 l disorder, disorder, Herm kaylah systemic systemic arterial arterial (disorder) (disorder) Active Problem 01/08/2022 [facility], GIANFRANCO Dennison, GIANFRANCO Dwight Hypothyroi Problem Active 2022-01-08 M guanako dism Hypothyroi 04:58:44 l (disorder) dism Flex n (disorder) Active Problem 01/08/2022 [facility], GIANFRANCO Dennison, GIANFRANCO Quintanilla Morbid Morbid Problem Active 2022-01-08 Mem oria obesity obesity 04:58:44 l (disorder) (disorder) He rmann Active Problem 01/08/2022 [facility] Obesity Obesity Problem Active 2022-01-08 Me moria (disorder) (disorder) 04:58:44 l Active Juma Problem 01/08/2022 [facility], GIANFRANCO Dennison, GIANFRANCO Quintanilla Peripheral Periphera Problem Active 2022-01-08 Memoria nerve l nerve 04:58:44 l disease disease [place] (disorder) (disorder) Active Problem 01/08/2022 [facility] Foot-drop Foot-drop Problem Active 2022-01-08 Memoria (finding) (finding) 04:58:44 l Active [place] Problem 01/08/2022 [facility] LUMB/LUMBO Diagnosis Active 2014-07-23 Memoria SAC DISC LUMB/LUMBO 08:51:00 l DEGEN SAC DISC [place] DEGEN Active [facility] SPIN SPIN Diagnosis Active 2014-07-23 Mem oria STEN,LUMBR STEN,LUMBR 08:51:00 l WO ARACELI WO ARACELI Flex n Active [facility] LUMBAR LUMBAR Diagnosis Active 2014-07-23 Hi moria DISC DISC 08:51:00 l DISPLACEME DISPLACEME He rmann NT NT Active [facility] No known No known Disease Unive rs active active ity of problems problems [facility] Allergies, Adverse Reactions, Alerts Allergy Allergy Status Severity Reaction(s) Onset Inactive Treating Comm ents Source Name Type Date Date Clinician NO KNOWN Drug Active Univers ALLERGIE Class ity of S [facility] Social History Social Habit Start Date Stop Date Quantity Comments Source History SDOH Gnosticism [facility] spital Alcohol Std Drinks History SDOH Gnostic[facility] spital Alcohol Binge Exposure to 2021-09-24 2021-10-04 Not sure [facility]-CoV-2 00:00:00 13:13:00 [facility] (event) Branch Alcohol intake 2018-12-17 2018-12-17 [facility] 00:00:00 00:00:00 non-drinker (finding) History SDOH 2018-12-16 2018-12-16 1 Gnosticism spital Alcohol Frequency 00:00:00 00:00:00 Tobacco use and 2017-11-20 2017-11-[address] [facility] exposure 00:00:00 00:00:00 [facility] Center Sex Ass[birth year] [facility] 00:00:00 00:00:00 Smoking Status Start Date Stop Date Source Tobacco smoking consumption Univ ersity of [facility] unknown Branch Tobacco smoking status [facility] [place] Medications Ordered Filled Start Stop Current Ordering Indication Dosage Frequency Signature Comments Components Source Medication Medication Date Date Medication? Clinician (SIG) Name Name No known No No known Unive rs medications 8-03 medication it y of 13:39: [address] No known No No known Unive rs medications 8-03 medication it y of 13:39: [address] No known 2021-0 No No known Unive rs medications 8-03 medication it y of 13:39: [address] No known No No known Unive rs medications 8-03 medication it y of 13:39: [address] No known 2021-0 No No known Unive rs medications 8-03 medication it y of 13:39: [address] No known No No known Unive rs medications 8-03 medication it y of 13:39: [address] atorvastati Yes TAKE 1 Deejay lula n 80 mg 7-06 TABLET BY l oral tablet 18:13: MOUTH Rhiannon nn 00 EVERYDAY AT BEDTIME BuPROPion Yes TAKE 1 Memori a (Eqv-Wellbu 7-06 TABLET BY l brooke SR) 18:13: MOUTH Juma 150 mg/12 00 EVERY DAY hours oral tablet, extended release niacin 500 Yes TAKE 1 Memor ia mg oral 7-06 TABLET BY l tablet, 18:13: MOUTH Juma extended 00 EVERY DAY release pantoprazol Yes TAKE 1 Deejay lula e 40 mg 7-06 TABLET BY l oral 18:13: MOUTH [place] enteric 00 EVERY DAY coated tablet meclizine Yes TAKE 1 Memori a 25 mg oral 7-06 TABLET BY l tablet 18:13: MOUTH Juma 00 THREE TIMES A DAY NEEDED Farxiga 5 Yes TAKE 1 Memori a mg oral 7-06 TABLET BY l tablet 18:13: MOUTH Juma 00 EVERY DAY aspirin 81 Yes 81 mg = 1 Me moria mg oral 7-06 cap, PO, l capsule 18:12: Daily, 0 Flex n 00 Refill(s) sertraline Yes 100 mg = 1 M emoria 100 mg oral 7-06 tab, PO, l tablet 18:11: Daily, Juma 00 HALF A TAB DAILY, 0 Refill(s) Fish Oil Yes PO, 0 Memoria 7-06 Refill(s) l 18:11: [place] 00 Vitamin D3 Yes 0 Memoria 7-06 Refill(s) l 18:11: Juma 00 prazosin 1 Yes 1 mg = 1 Mem oria mg oral 7-06 cap, PO, l capsule 18:10: Daily, 0 Flex n 00 Refill(s) clonazePAM Yes 2 mg = 1 Mem oria 2 mg oral 7-06 tab, PO, l tablet 18:05: PRN, 0 Juma 00 Refill(s) atorvastati 2019- Yes 80 mg, PO, Memoria n 9-10 Daily, 0 l 16:26: Refill(s) glimepiride Yes 0.5 mg, Mem oria 9-10 PO, Daily, l 16:26: 0 Juma 00 Refill(s) Aspirin 2019-0 Yes 325 mg, Memoria 9-10 PO, Daily, l 16:26: 0 [place] 00 Refill(s) metoprolol 0 Yes 25 mg, PO, M emoria tartrate 9-10 BID, 0 l 16:26: Refill(s) Fenofibrate 2019-0 Yes 160 mg, Mem oria 9-10 PO, Daily, l 16:26: 0 Juma 00 Refill(s) Buprenorphi 2019-0 Yes 150 mg, Mem oria ne 9-10 PO, Daily, l 16:26: 0 Juma 00 Refill(s) 0.25 MG, 2020-0 Yes SUB-Q, Memoria 0.5 MG Dose 9-10 qWeek, 0 l 1.5 ML 16:26: Refill(s) Flex n semaglutide 00 1.34 MG/ML Pen Injector [Ozempic] atorvastati Yes 80 mg, PO, Memoria n 9-10 Daily, 0 l 16:26: Refill(s) Juma 00 glimepiride 2019-0 Yes 0.5 mg, Mem oria 9-10 PO, Daily, l 16:26: 0 Refill(s) fenofibrate 2019-0 Yes 160 mg, Mem oria 9-10 PO, Daily, l 16:26: 0 Refill(s) Ozempic 2020-0 Yes SUB-Q, Memoria (0.25 mg or 9-10 qWeek, 0 l 0.5 mg 16:26: Refill(s) Flex n dose) 2 00 mg/1.5 mL subcutaneou s solution metFORMIN 2018-03 Yes 1000mg Q.5D Take 1,000 Methodi (GLUCOPHAGE 0-[address] ) 500 mg 12:10: mouth 2 Hospit a tablet 09 (two) l times a day with meals. levothyroxi 2018-03 Yes 175ug QD Take 175 M ethodi ne 0-[address] (SYNTHROID, 12:10: mouth Hospi ta LEVOXYL) 09 daily. l 175 mcg tablet fenofibrate 2018-03 Yes 160mg QD Take 160 M ethodi (LOFIBRA) 0-[address] 160 MG 12:10: mouth Hospita tablet 09 daily. l lisinopril 2018-03 Yes 10mg QD Take 10 mg M ethodi (PRINIVIL,Z 0-[address] ESTRIL) 10 12:10: daily. Hospi ta mg tablet 09 l clonAZEPAM 2018-03 Yes .5mg QD Take 0.5 Met hodi (KlonoPIN) 0-[address] 0.5 MG 12:10: mouth Hospita tablet 09 nightly as l needed for anxiety. atorvastati 2018-03 Yes 80mg QD Take 80 mg Methodi n (LIPITOR) 0-[address] 80 MG 12:10: daily. Hospita tablet 09 l metoprolol 2018-03 Yes 25mg Q.5D Take 25 mg M ethodi tartrate 0-[address] (LOPRESSOR) 12:10: (two) Hospi ta 25 mg 09 times a l tablet day. docosahexan 2018-03 Yes 1000mg QD Take 1,000 Methodi oic 0-[address] acid/epa 12:10: mouth Hospita (FISH OIL 09 daily. l ORAL) multivitami 2018-03 Yes 1{tbl} QD Take 1 Me thodi n 0-[address] (THERAGRAN) 12:10: mouth Hospi ta tablet 09 daily. levothyroxi Yes 175ug Take [address] ne 9-19 mcg by [facility] (SYNTHROID, 10:18: mouth Medic al LEVOTHROID) 29 Every Center 175 MCG morning on tablet an empty stomach. fenofibrate Yes 160mg QD Take [address] (TRIGLIDE,L 9-19 mg by [facility] OFIBRA) 160 10:18: mouth Medic al MG tablet 29 daily. [place] lisinopril Yes 10mg QD Take [address] (PRINIVIL,Z 9-19 by mouth Luke s ESTRIL) 10 10:18: daily. Medic al MG tablet 29 Center glimepiride Yes 2mg Q.5D Take [address] (AMARYL) 2 9-19 by mouth 2 Johny es MG tablet 10:18: (two) Medical 29 times Center daily. clonazePAM Yes .5mg QD Take 0.[address] (KLONOPIN) 9-19 mg by [facility] 0.5 MG 10:18: mouth Medical tablet 29 nightly. [place] aspirin 81 Yes 81mg QD Take [address] MG EC 9-19 by mouth [facility] tablet 10:18: daily. Medical 29 Center multivitami Yes 1{tbl} QD Take [address] n per 9-19 tablet by [facility] tablet 10:18: mouth Medical 29 daily. [place] metFORMIN Yes 500mg Take [address] (GLUCOPHAGE 9-19 mg by [facility] ) 500 MG 10:18: mouth 2 Medica l tablet 29 (two) Center times daily with breakfast and dinner. Sodium No 1,000 mL, Memori a Chloride 5-23 1,000 l 0.154 20:58: ml/hr, Juma MEQ/ML 00 Infuse Injectable Over: 1 Solution hr, Route: IV, ONCE, Priority: STAT, Dosing Weight 122.727 kg, Start date: 07/24/14 15:58:00, Duration: 1 doses or times, Stop date: 07/24/14 15:58:00 Cyclobenzap No 10 mg = 1 M emoria rine 5-23 tab, PO, l hydrochlori 13:57: BID, PRN He rmann de 10 MG 00 for spasm, Oral Tablet # 30 tab, [Flexeril] 0 Refill(s) ondansetron No 4 mg = 1 Me moria 4 mg oral 5-23 tab, PO, l tablet 13:57: TID, # 30 Flex n 00 tab, 0 Refill(s) Acetaminoph No 1-2 tab, Me moria en 325 MG / 5-23 PO, Q4-6H, l Hydrocodone 13:57: PRN Pain, H ermann Bitartrate 00 # 90 tab, 10 MG Oral 0 Tablet Refill(s) [Gypsy 10/325] senna 15 mg No 15 mg = 1 M emoria oral tablet 5-23 tab, PO, l 13:57: Daily, PRN [place] 00 for constipati on, # 30 tab, 0 Refill(s) Miralax No Notes: Memoria 5-22 Dissolve l 23:00: in 8 oz of Juma 00 water or juice. (Same as: Miralax) Lisinopril No Notes: Memor ia 5-22 (Same as: l 14:00: Prinivil, Juma Zestril) Thyroxine No 175 Memoria 5-22 microgram, l 14:00: Route: PO, [place] 00 Drug form: TAB, Daily, Dosing Weight 122.727, kg, Start date: 07/23/14 9:00:00, Duration: 30 day, Stop date: 06/20/15 9:00:00 pneumococca No Notes: Deejay lula l capsular 5-22 (Same as: l polysacchar 14:00: Pneumovax H ermann neville type 1 00 23) vaccine / Refrigerat pneumococca e l capsular polysacchar [place] type 10A vaccine / pneumococca l capsular polysacchar [place] type 11A vaccine / pneumococca l capsular polysacchar [place] type 12F vaccine / pneumococca l capsular polysacchar Levothroid No Notes: Memor ia 5-22 Take 1 l 11:30: hour Juma 00 before or 2 hours after meal; Enteral feeds may interefere with the absorption of this medication . (Same as:Levothr oid, Synthroid) Synthroid No Notes: Memori a 5-22 Take 1 l 11:30: hour Juma 00 before or 2 hours after meal; Enteral feeds may interefere with the absorption of this medication . (Same as:Synthro id, Levothroid ) sennosides, No Notes: Deejay lula SHELTER -22 (Same as: l 02:00: Senokot) [place] 00 Docusate No Notes: Memoria 5-22 (Same as: l 02:00: Colace) [place] 00 (Do Not Crush) Famotidine No Notes: Memor ia 5-22 (Same as: l 02:00: Pepcid) Can be dilute in 5-10cc NS IVP: Slow IV push over at least 2 minutes. ceFAZolin No Notes: Memori a 5-22 (Same As: l 02:00: Ancef, Juma 00 Kefzol) MEDICATION WASTE Product Size: 1000 mg Product Wasted: ___ mg Lipitor No Notes: Memoria 5-22 (Same As: l 02:00: Lipitor) Lovastatin No 20 mg, Memor ia 5-22 Route: PO, l 02:00: Drug form: Juma 00 TAB, Bedtime, Dosing Weight 122.727, kg, Start date: 07/22/14 21:00:00, Duration: 30 day, Stop date: 08/20/14 21:00:00 Saline No Notes: Memoria Flush 0.9% 5-22 (Same as: l 02:00: BD [place] Posiflush) Metformin No Notes: Memori a hydrochlori 5-21 (Same as: l de 500 MG 22:00: Glucophage He rmann Oral Tablet 00 ) Take with meal bupivacaine No Notes: Deejay lula liposome 5-21 (Same as: l 18:29: Exparel) Juma NOT FOR IV use Postoperat dani analgesia: Infiltrati on (local): Dose is based on surgical site and volume required to cover the area (in general, the maximum total dose is 266 mg). Bunionecto my: 7 mL into the tissues surroundin g the osteotomy and 1 mL into the subcutaneo us tissue of the surgical site (total dose = 8 mL [106 mg]) Hemorrhoid ectomy: 30 mL (20 mL vial diluted with 10 mL NS) divided and administer ed as 6 injections of 5 mL each (total dose = 30 mL [266 mg]) Cefazolin No 1 gm, Memoria 5-21 Route: l 18:00: IVPB, Juma 00 [id number], Dosing Weight 122.727, kg, For < 70 kg, Start date: 07/22/14 13:00:00, Duration: 30 day, Stop date: 08/21/14 5:00:00 Morphine No Notes: Memoria 5-21 Dose: l 17:30: Delay: Juma 00 Basal rate: 4hr limit: (Same as:Cliff godoy) Valium No Notes: Memoria 5-21 (Same as: l 17:05: Valium) [place] Naloxone No Notes: Memoria 5-21 Same as l 17:04: Narcan Juma 00 Saline No Notes: Memoria Flush 0.9% 5-21 (Same as: l 17:02: BD [place] Posiflush) Acetaminoph No Notes: Do M emoria en 325 MG / 5-21 not exceed l Hydrocodone 17:02: 4gm/day of Juma Bitartrate 00 acetaminop 10 MG Oral hen. (Same Tablet as: Gypsy 325/10) Ondansetron No Notes: Deejay lula 5-21 (Same as: l 17:02: Zofran) [place] 00 MEDICATION WASTE Product Size: 4 mg Product Wasted: __0_ mg Sodium No 1,000 mL, Memori a Chloride 07-22 Rate: 50 l 0.154 17:02: ml/hr, Juma MEQ/ML 00 Infuse Injectable over: 20 Solution hr, Route: IV, Dosing Weight 122.727 kg, Total Volume: 1,000, Start date: 07/22/14 12:02:00, Stop date: 08/21/14 12:01:00 Clonazepam Yes PO, TID, 0 M emoria 5-19 Refill(s) l 20:39: Juma 00 clonazePAM Yes PO, TID, 0 M emoria 5-19 Refill(s) l 20:39: [place] 00 Diclofenac Yes PO, 0 Memori a 5-19 Refill(s) l 20:38: [place] 00 meclizine Yes 12.5 mg = Mem oria 12.5 mg 5-19 1 tab, PO, l oral tablet 20:38: TID, PRN He rmann 00 Dizziness, # 30 tab, 0 Refill(s) sildenafil Yes 100 mg = 1 M emoria 100 MG Oral 5-19 tab, PO, l Tablet 20:37: Daily, PRN Rhiannon nn [Viagra] 00 for erectile dysfunctio n, 0 Refill(s) Phentermine Yes 37.5 mg = M emoria Hydrochlori 5-19 1 cap, PO, l de 37.5 MG 20:37: Daily, 0 Her velasco Oral 00 Refill(s) Capsule Trazodone Yes 100 mg = 1 Me moria Hydrochlori 5-19 tab, PO, l de 100 MG 20:36: TID, # 270 He rmann Oral Tablet 00 tab, 0 Refill(s) clonazePAM Yes 0.5 mg = 1 M emoria 0.5 mg oral 5-19 tab, PO, l tablet, 20:36: TID, 0 [place] disintegrat 00 Refill(s) ing levothyroxi Yes 175 Memori a ne 175 mcg 5-19 microgram l (0.175 mg) 20:35: = 1 tab, Her velasco oral tablet 00 PO, Daily, # 90 tab, 0 Refill(s) lovastatin Yes 20 mg = 1 Me moria 20 mg oral 5-19 tab, PO, l tablet 20:30: Bedtime, # Rhiannon nn 00 90 tab, 0 Refill(s) diclofenac Yes 75 mg = 1 Me moria sodium 75 5-19 tab, PO, l mg oral 20:29: Q12H, # 60 Herm kaylah enteric 00 tab, 0 coated, Refill(s) delayed-rel ease tablet Metformin Yes 500 mg = 1 Me moria hydrochlori 5-19 tab, PO, l de 500 MG 20:28: BID, # 30 Her velasco Oral Tablet 00 tab, 0 Refill(s) Yes 1 tab, PO, Mem oria Plus Low 5-19 Daily, 0 l Iron oral 20:28: Refill(s) Her velasco tablet 00 metFORMIN Yes 500 mg = 1 Me moria 500 mg oral 5-19 tab, PO, l tablet 20:28: BID, # 30 Flex n 00 tab, 0 Refill(s) lisinopril Yes 10 mg = 1 Me moria 10 mg oral 5-19 tab, PO, l tablet 20:27: Daily, # [place] 00 90 tab, 0 Refill(s) Immunizations Ordered Filled Immunization Date Status Comments [facility] e Immunization Name Name [id number] 2020-06-13 Completed Memor ial Juma [id number] 00:00:00 [id number] 2020-05-13 Completed Memor ial Juma [id number] 00:00:00 SARS-COV-2 COVID-19 2020-05-08 Completed Unive rsity of MODERNA VACCINE 00:00:00 [facility] SARS-COV-2 COVID-19 2020-05-08 Completed Unive rsity of MODERNA VACCINE 00:00:00 [facility] SARS-COV-2 COVID-19 2020-05-08 Completed Unive rsity of MODERNA VACCINE 00:00:00 [facility] SARS-COV-2 COVID-19 2020-05-08 Completed Unive rsity of MODERNA VACCINE 00:00:00 [facility] SARS-COV-2 COVID-19 2020-05-08 Completed Unive rsity of MODERNA VACCINE 00:00:00 [facility] SARS-COV-2 COVID-19 2020-05-08 Completed Unive rsity of MODERNA VACCINE 00:00:00 [facility] SARS-COV-2 COVID-19 2020-04-10 Completed Unive rsity of MODERNA VACCINE 00:00:00 [facility] SARS-COV-2 COVID-19 2020-04-10 Completed Unive rsity of MODERNA VACCINE 00:00:00 [facility] SARS-COV-2 COVID-19 2020-04-10 Completed Unive rsity of MODERNA VACCINE 00:00:00 [facility] SARS-COV-2 COVID-19 2020-04-10 Completed Unive rsity of MODERNA VACCINE 00:00:00 [facility] SARS-COV-2 COVID-19 2020-04-10 Completed Unive rsity of MODERNA VACCINE 00:00:00 [facility] SARS-COV-2 COVID-19 2020-04-10 Completed Unive rsity of MODERNA VACCINE 00:00:00 [facility] pneumococcal 2014-07-24 Completed [facility] velasco 23-valent vaccine 19:24:00 Vital Signs Vital Name Observation Time Observation Value Comments Source Systolic blood 2021-10-04 18:36:00 136 mm[Hg] Univer sity of pressure [facility] Diastolic blood 2021-10-04 18:36:00 80 mm[Hg] Unive rsity of pressure [facility] Heart rate 2021-10-04 18:36:00 79 /min [facility] Respiratory rate 2021-10-04 18:27:00 18 /min Univ ersity of [facility] Body height 2021-10-04 18:27:00 182.9 cm [facility] Body weight 2021-10-04 18:27:00 124.603 kg [facility] BMI 2021-10-04 18:27:00 37.26 [facility] saturation in 2021-10-04 18:27:00 97 /min University Arterial blood by [facility] Pulse oximetry Branch Systolic (mm Hg) 2022-01-05 14:06:00 Deejay rial [place] Diastolic (mm Hg) 2022-01-05 14:06:00 Mem orial Juma Heart Rate 2022-01-05 14:06:00 [facility] Height 2022-01-05 14:06:00 6 [ft_i] [facility] [place] Weight 2022-01-05 14:06:00 [facility] BMI Calculated 2022-01-05 14:06:00 Memori al Juma Systolic (mm Hg) 2021-09-06 18:18:00 Deejay rial [place] Diastolic (mm Hg) 2021-09-06 18:18:00 Mem orial Juma Heart Rate 2021-09-06 18:18:00 [facility] [place] Respitory Rate 2021-09-06 18:18:00 Memori al Juma Height 2021-09-06 18:18:00 187.96 cm [facility] Weight 2021-09-06 18:18:00 [facility] BMI Calculated 2021-09-06 18:18:00 Memori al Juma Systolic (mm Hg) 2020-12-29 20:52:00 Deejay rial [place] Diastolic (mm Hg) 2020-12-29 20:52:00 Mem orial [place] Heart Rate 2020-12-29 20:52:00 [facility] Respitory Rate 2020-12-29 20:52:00 Memori al Juma Height 2020-12-29 20:52:00 187.96 cm [facility] [place] Weight 2020-12-29 20:52:00 [facility] BMI Calculated 2020-12-29 20:52:00 Memori al Juma Systolic (mm Hg) 2020-09-02 14:38:00 Deejay rial Juma Diastolic (mm Hg) 2020-09-02 14:38:00 Mem orial Juma Heart Rate 2020-09-02 14:38:00 [facility] [place] Respitory Rate 2020-09-02 14:38:00 Memori al Juma Height 2020-09-02 14:38:00 185.42 cm [facility] Weight 2020-09-02 14:38:00 [facility] [place] BMI Calculated 2020-09-02 14:38:00 Memori al [place]uma Systolic (mm Hg) 2019-11-12 15:54:00 Deejay rial Juma Diastolic (mm Hg) 2019-11-12 15:54:00 Mem orial [place] Heart Rate 2019-11-12 15:54:00 [facility] [place] Respitory Rate 2019-11-12 15:54:00 Memori al [place] Temperature Oral (F) 2019-11-12 15:54:00 97.3 F [facility]uma Height 2019-11-12 15:54:00 187.96 cm [facility] [place] Weight 2019-11-12 15:54:00 [facility] BMI Calculated 2019-11-12 15:54:00 Memori al [place] Systolic (mm Hg) 2014-07-26 16:21:00 Deejay rial [place] Diastolic (mm Hg) 2014-07-26 16:21:00 Mem orial [place] Heart Rate 2014-07-26 16:21:00 [facility] [place] Respitory Rate 2014-07-26 16:21:00 [facility] [place] Temperature Oral (F) 2014-07-26 16:21:00 98.4 F [facility] Rate 2014-07-26 12:14:00 [facility] [place] Temperature Oral (F) 2014-07-26 12:14:00 98.4 F [facility] [place] Respitory Rate 2014-07-26 12:14:00 [facility] [place] Systolic (mm Hg) 2014-07-26 10:12:00 Deejay rial [place] Diastolic (mm Hg) 2014-07-26 10:12:00 Mem orial [place] Temperature Oral (F) 2014-07-26 10:12:00 97.6 F [facility] Heart Rate 2014-07-26 10:12:00 [facility] [place] Systolic (mm Hg) 2014-07-26 05:18:00 Deejay rial [place] Diastolic (mm Hg) 2014-07-26 05:18:00 Mem orial [place] Respitory Rate 2014-07-26 01:28:00 [facility] [place] Weight 2014-07-22 14:50:00 [facility] [place] BMI Calculated 2014-07-22 14:50:00 Sophy al [place] Height 2014-07-22 14:50:00 185.42 cm [facility] Procedures Procedure Date / Time Performing Clinician Source Performed DME/SUPPLY JUSTIFICATION 2021-10-20 05:01:00 Doctor Unassigned, No [facility] SLEEP STUDY DATA REPORT 2021-10-12 05:01:00 Doctor Unassigned, N o [facility] Colonoscopy [facility] Oral operation [facility] Plan of Care Planned Activity Planned Date Details Comments Source Future Scheduled 2022-01-21 HEPATITIS B VACCINES [facility] Test 13:23:30 (1 of 3 - 3-dose series) [code = HEPATITIS B VACCINES (1 of 3 - 3-dose series)] Future Scheduled 2022-01-21 COVID-19 VACCINE (#1) [facility] Test 13:23:30 [code = COVID-19 VACCINE (#1)] Future Scheduled 2022-01-21 COLONOSCOPY SCREENING [facility] Test 13:23:30 [code = COLONOSCOPY SCREENING] Future Scheduled 2022-01-21 SHINGLES VACCINES (1 [facility] Test 13:23:30 of 2) [code = SHINGLES VACCINES (1 of 2)] Future Scheduled 2022-01-21 65+ [facility]AL [facility] 13:23:30 VACCINE (1 - PCV) [code = 65+ PNEUMOCOCCAL VACCINE (1 - PCV)] Future Scheduled 2022-01-21 INFLUENZA VACCINE [facility] Test 13:23:30 [code = INFLUENZA VACCINE] Encounters Start End Encounter Admission Attending Care Care Encounter Source Date/Time Date/Time Type Type Clinicians Facility Department ID 2022-05-04 2022-05-04 Outpatient CLARK RODAS [id number] [facility] 15:00:00 15:00:00 10 l [facility]uma 2022-01-05 2022-01-06 Outpatient nullFlavo MNA [id number] [facility] 14:15:00 04:59:59 r Neurology 09 jack Dennison 2022-01-05 2022-01-05 Outpatient AMADO Schmidt [id number] 09:15:00 23:59:59 Bo Jackson Garcia 2022-01-05 2022-01-05 Outpatient CLARK RODAS [id number] Mem[facility] 09:15:00 09:15:00 09 l Juma 2021-12-07 2021-12-07 Ambulatory nullFlavo MNA [id number] [facility] 20:45:00 20:45:00 Pre-Reg r Neurology 08 l Caryn Dennison 2021-12-07 2021-12-07 Outpatient CLARK RODAS [id number] [facility] 15:45:00 15:45:00 08 jack Dennison 2021-12-07 2021-12-[address] [facility] [id number] 15:45:00 15:45:00 Bo Robyn Garcia 2021-10-20 2021-10-20 Orders Doctor NATALIA [id number] Univers 00:00:00 00:00:00 Only Unassigned, YARELI 350.1.13.10 [facility] [id number] Ruddy as [phone] [facility] [address] 2021-10-19 2021-10-19 Telephone Lamine [facility] 1.2.840.114 [id number] Univers 00:00:00 00:00:00 Javier DYE [id number] ity of [id number] [facility] [phone] [facility] 085 [facility] 2021-10-12 2021-10-12 German Tutor 1, [facility] Sleep Lab Bed [facility] 1. 2.840.114 [id number] Univers 20:00:00 22:30:00 Visit Javier Raman 350.1.13. 10 it[place] of [id number] [phone] [facility] [address] 2021-10-12 2021-10-12 Outpatient R JAVIER RAMAN [facility] [id number] Univers 20:00:00 20:00:00 JAVIER RAMAN ity of [facility] 2021-10-12 2021-10-12 Orders Doctor FISHER 1.2.840.114 [id number] Univers 00:00:00 00:00:00 Only Unassigned, YARELI 350.1.13.10 ity of [place] [facility] [id number] Ruddy as [phone] [facility] [address] 2021-10-10 2021-10-10 Laboratory Only, Adc Test [facility] 1.2.840. 114 [id number] Univers 15:15:00 15:30:00 Only Javier Raman 350.1.13. 10 ity of [id number] [phone] [facility] [address] 2021-10-10 2021-10-10 Outpatient R JAVIER RAMAN [facility] [id number] Univers 15:15:00 15:15:00 LAMINE MATIASELISEOL itadrianna [facility] 2021-10-04 2021-10-04 Outpatient R MATIAS RAMANALJack [facility] [id number] Univers 13:40:00 13:57:31 CALEB RAMANL itadrianna [facility] 2021-10-04 2021-10-04 Outpatient R LAMINE MATIASALL [facility] [id number] Univers 13:40:00 13:57:31 LAMINE MATIASALL itadrianna [facility] 2021-10-04 2021-10-04 Office Lamine [facility] [id number] Univers 13:40:00 13:57:31 Visit Javier DYE 350.1.13.10 ity [facility] [id number] [facility] [phone] [place] 849005 [facility] 2021-10-04 2021-10-04 Outpatient R LAMINE MATIASALJack [facility] [id number] Univers 13:40:00 13:40:00 LAMINE MATIASELISEOL ity [facility] 2021-09-12 2021-09-12 Orders Doctor FISHER 1.2.840.114 [id number] Univers 00:00:00 00:00:00 Only Unassigned, YARELI 350.1.13.10 ity of [place] [facility] [id number] Ruddy as [phone] [facility] [address] 2021-09-06 2021-09-07 Outpatient nullFlavo MNA [id number] Memoria 18:00:00 04:59:59 r Neurology 06 jack Dennison 2021-09-06 2021-09-06 Outpatient CHERELLE SchmidtMIJOHANNA MCKEONSCHWARD [id number] 13:00:00 23:59:59 Bo Nohemy Garcia 2021-09-06 2021-09-06 Outpatient CLARK RODAS [id number] Memoria 13:00:00 13:00:00 06 jack Dennison 2021-09-02 2021-09-02 German Tutor 1, [facility] Sleep Lab Bed [place] 1. 2.840.114 [id number] Univers 20:00:00 22:30:00 Visit Javier Raman 350.1.13. 10 ity of [place] [id number] [facility] [phone] [facility] [address] 2021-09-02 2021-09-02 Outpatient R MATIAS RMAANHIL [facility] [id number] Univers 20:00:00 20:00:00 MATIAS RAMANHIL ity [facility] 2021-09-02 2021-09-02 Orders Doctor ANTALIA 1.2.840.114 [id number] Univers 00:00:00 00:00:00 Only Unassigned, YARELI 350.1.13.10 ity of [place] [facility] 4.2.7.2.686 Ruddy as [phone] [facility] [address] 2021-08-31 2021-08-31 Laboratory Only, [facility] Test [facility] 1.2.840. 114 [id number] Univers 16:00:00 16:15:00 Only Javier Raman 350.1.13. 10 ity of [place] [id number] [facility] [phone] [facility] [address] 2021-08-31 2021-08-31 Outpatient R LAMINE STRAHIL [facility] [id number] Univers 16:00:00 16:00:00 MATIAS RAMANHIL ity [facility] 2021-08-31 2021-08-31 Outpatient R JAVIER RAMAN [facility] [id number] Univers 16:00:00 16:00:00 JAVIER RAMAN itadrianna [facility] 2021-08-29 2021-08-29 Telephone Lamine [facility] 1.2.840.114 [id number] Univers 00:00:00 00:00:00 [facility] Phil DYE 350.1.13.10 ity [facility] [id number] [phone] Hi dical NAL 085 [facility] 2021-08-16 2021-08-16 Outpatient R JAVIER RAMAN [facility] [id number] Univers 13:40:00 14:24:07 JAVIER RAMAN itadrianna [facility] 2021-08-16 2021-08-16 [facility] [id number] [id number] Univers 13:40:00 14:00:00 Visit [facility] Phil DYE 350.1.13.10 ity [facility] [place]2.[place].2.[place] [phone] Hi dicky NAL [address] [place] [address] 2021-08-16 2021-08-16 Outpatient R JAVIER RAMAN [facility] [id number] Univers 13:40:00 13:40:00 [facility] 2021-08-16 2021-08-16 Orders Doctor FISHER 1.2.840.114 [id number] Univers 00:00:00 00:00:00 Only Unassigned, YARELI 350.1.13.10 ity of [place] [facility] 4.2.7.2.686 Ruddy as [phone] [facility] ray [address] [place] 2020-12-29 2020-12-30 Outpatient nullFlavo MNA [id number] Mem[facility] 21:00:00 04:59:59 r Neurology 07 l [place] [facility] 2020-12-29 2020-12-29 Outpatient AMADO Schmidt ANNELIESE [id number] 16:00:00 23:59:59 Bo Garcia 2020-12-29 2020-12-29 Outpatient MHIE MHIE [id number] Memoria 16:00:00 16:00:00 07 jack Juma 2020-11-11 2020-11-11 Ambulatory nullFlavo MNA [id number] Memoria 19:30:00 19:30:00 Pre-Reg r Neurology 04 jack Rubin Juma 2020-11-11 2020-11-11 Outpatient MHIE MHIE [id number] Memoria 14:30:00 14:30:00 04 jack Juma 2020-11-11 2020-11-11 Outpatient CHERELLE SchmidtMISCHER MHMISCHER [id number] 14:30:00 14:30:00 Bo 04 Jose 2020-09-02 2020-09-03 Outpatient nullFlavo MNA [id number] Memoria 14:45:00 04:59:59 r Neurology 05 jack [place] Juma 2020-09-02 2020-09-02 Outpatient CHERELLE SchmidtMISCHER MHMISCHER [id number] 09:45:00 23:59:59 Bo 05 Jose 2020-09-02 2020-09-02 Outpatient MHIE MHIE [id number] Memoria 09:45:00 09:45:00 05 jack Juma 2019-11-12 2019-11-13 Outpatient nullFlavo MNA [id number] Memoria 16:45:00 04:59:59 r Neurology 03 jack [place] Juma 2019-11-12 2019-11-12 Outpatient LINDA SchmidtSCHER MHMISCHER [id number] 11:45:00 23:59:59 Bo 03 Jose 2019-11-12 2019-11-12 Outpatient MHIE MHIE [id number] Memoria 11:45:00 11:45:00 03 jack Dennison 2017-05-09 2017-05-09 Outpatient MHIE MHIE [id number] Memoria 15:15:00 15:15:00 02 jack Dennison 2015-07-13 2015-07-13 Outpatient MHIE MHIE [id number] Memoria 15:45:00 15:45:00 01 jack Dennison 2015-06-30 2015-07-01 Outpt Diag nullFlavo [facility] [id number] Memoria 15:52:00 04:59:00 Services r Outpatient 03 l Imaging - Flex Smyth 2015-06-30 2015-06-30 Outpatient Rushing, 35 [facility] [id number] 10:52:00 23:59:00 Jamie De Jesus 03 2015-06-09 2015-06-10 Outpt Diag nullFlavo [facility] [id number] Memoria 12:23:00 04:59:00 Services r Outpatient [address] [facility] 2015-06-09 2015-06-09 Outpatient Rushing, [facility] [id number] 07:23:00 23:59:00 Jamie De Jesus 02 2015-06-09 2015-06-09 Outpatient IE [facility] [id number] Memoria 10:45:00 10:45:00 00 [facility] 2014-08-27 2014-08-28 Outpt Diag nullFlavo [facility] [id number] Memoria 15:29:00 04:59:00 Services r Outpatient [address] [facility] 2014-08-27 2014-08-27 Outpatient Dick 2.16.840. 2.16.840.1. [id number] 10:29:00 23:59:00 Mark Anthony [id number]. [id number] Josselin 3.615.0.1 [id number] 91 8060-05-21 2014-07-26 Inpatient nullFlavo [facility] [id number] Memoria 12:25:00 16:50:00 r [place] 00 [facility] 2014-07-22 2014-07-26 Outpatient Dick 2.16.840. 2.16.840.1. [id number] 07:25:00 11:50:00 Mark Anthony [id number]. [id number] Josselin 3.615.0.1 5.0.101 01 Results Test Description Test Time Test Comments Results Result Comments Source GLYCOSYLATED HEMOGLOBIN (HA1C) 2018-11-24 16:23:00 Test Item Value Reference Range Interpretation Comme nts GLYCOSYLATED HEMOGLOBIN (HA1C) 6.6 % 4.8-5.9 H Any condition that shortens (test code = GLYHGB) erythoc yte survival or decreasesmean erythrocyte age (e.g., recovery from acute blood los s,hemolytic anemai) will falsely lo wer HGBA1c resultsregardle ss of the method used. HGBA1c results frompatients with HbSS, HbCC and HbSc must be interpreted wit hcaution given the pathological pr ocesses, including anemia,increase d red cell turnover, transfusion req uirements, thatadversely i mpact HGBA1c as a marker of long- term glycemiccontrol. Alternative for ms of testing such as fructosaminesho uld be considered for these patients. Any condition that shortens erytho cyte survival or decreasesmean e rythrocyte age (e.g., recovery from a cute blood loss,hemolytic anemia) will falsely lower HGBA1c re sultsregardless of the method used. HG BA1c results from patientswith Hb SS, HbCC, and HbSc must be interpr eted with cautiongiven the pathologica l processes, including anemia,increase d red cell turnover, transfusion req uirements, thatadversely i mpact HGBA1c as a marker of long- term glycemiccontrol. Alternative for ms of testing such as fructosaminesho uld be considered for these patients. DONE AT: [facility] [address] [facility] [place], [place] [address] GLYCOSYLATED HEMOGLOBIN (HA1C)2018-11-24 16:22:00 Test Item Value Reference Range Interpretation Comments GLYCOSYLATED 6.6 % 4.8-5.9 H Any condition t hat shortens HEMOGLOBIN (HA1C) erythocyte survival or (test code = GLYHGB) decreas esmean erythrocyte age (e.g., donny very from acute blood los s,hemolytic anemia) will fa lsely lower HGBA1c resultsr egardless of the method used . HGBA1c results from lb lyons HbSS, HbCC, and HbSc must be interpreted with cautiongiven th e pathological pr ocesses, including anemi a,increased red cell turnov er, transfusion req uirements, thatadversely i mpact HGBA1c as a marker of long-term glycemiccontrol . Alternative for ms of testing such as fructosaminesho uld be considered for these patients. COMPREHENSIVE METABOLIC [id number] 15:28:00 Test Item Value Reference Range Interpretation Comments SODIUM (test code = 144 mmol/L 136-145 N NA) POTASSIUM (test code = 4.4 mmol/L 3.5-5.1 N K) CHLORIDE (test code = 106.0 mmol/L 98-107 N CL) CARBON DIOXIDE (test 25.4 mmol/L 21-32 N code = CO2) GLUCOSE (test code = 204 mg/dL 70-110 H GLU) BLOOD UREA NITROGEN 16 mg/dL 7-18 N (test code = BUN) GLOMERULAR FILTRATION 72.1 >60 Unit o f measure: RATE (test code = GFR) mL/mi n/1.73 [id number] Range:Healthy Adults >90 mL/min/1.73 m2 For Chronic Kidney Disease: Stage II Mild Decrease i n GFR 60-90 Stag e III Moderate Decrease in GFR 30-59 Stage IV Severe Decrease in GFR 15-29 Stage V Kidney Failure <15 CREATININE (test code 1.04 mg/dL 0.55-1.30 N = CREAT) TOTAL PROTEIN (test 6.9 g/dL 6.4-8.2 N code = PROT) ALBUMIN (test code = 3.8 g/dL 3.4-5.0 N ALB) GLOBULIN (test code = 3.1 g/dL 2.2-4.2 N GLOB) ALBUMIN/GLOBULIN RATIO 1.2 0.7-2.0 N (test code = A/G) CALCIUM (test code = 9.5 mg/dL 8.2-10.1 N CA) BILIRUBIN TOTAL (test 0.20 mg/dL 0.2-1.00 N code = BILT) SGOT/AST (test code = 18.0 U/L 15-37 N AST) SGPT/ALT (test code = 31.0 U/L 12-78 N Please note new ALT) normal range. ALKALINE PHOSPHATASE 69 U/L 46-116 N TOTAL (test code = ALKP) PROTHROMBIN [id number] 14:57:00 Test Item Value Reference Range Interpretation Comments PROTHROMBIN TIME 11.6 secs 10.1-12.5 N PATIENT (test code = PTP) INTERNATIONAL NORMAL 1.03 <2.0 RECOMME NDED THERAPEUTIC RATIO (test code = RANGE FOR ORAL INR) ANTICOAGULANTTR EATMENT: CONDITION INRPr ophylaxis of venous throm bosis in 2.0 - 3.0 high- risk medical or surg ical patientsTreatme nt of venous thrombos is 2.0 - 3.0Prevention o f embolism 2.0 - 3.0Prevention o f recurrent embol ism, or 3.0 - 4.5 patie nts with mechanical pros thetic intravascular v everett IS PATIENT ON ANTICOAGULANTS ? YLIST ANTICOAGULANT/ANTI PLT MEDICATION : AspirinHas Lab been notified if Patient is on Heparin Drip? NOIf Yes, order CBC, OCCULT BLOOD, PT every other day NTHROMBOPLASTIN TIME [id number] 14:57:00 Test Item Value Reference Range Interpretation Comments PTT ACTIVATED (test code = APTT) 27.6 secs 24.9-37.0 N IS PATIENT ON ANTICOAGULANTS ? YLIST ANTICOAGULANT/ANTI PLT MEDICATION : AspirinHas Lab been notified if Patient is on Heparin Drip? NOIf Yes, order CBC, OCCULT BLOOD, PT every other day NURINALYSIS [id number] 14:45:00 Test Item Value Reference Range Interpretation Comments UA COLOR (test code = COLU) YELLOW YELLOW UA APPEARANCE (test code = CLEAR CLEAR APPU) UA GLUCOSE DIPSTICK (test code NEGATIVE NEGATIVE = DGLUU) UA BILIRUBIN DIPSTICK (test NEGATIVE NEGATIVE code = BILU) UA KETONE DIPSTICK (test code NEGATIVE mg/dL NEGATIVE = KETU) UA SPECIFIC GRAVITY (test code 1.015 1.003-1.035 = SGU) UA BLOOD DIPSTICK (test code = NEGATIVE NEGATIVE ELI) UA PH DIPSTICK (test code = 6.0 >6.5 ANNE MARIE) UA PROTEIN DIPSTICK (test code NEGATIVE mg/dL NEG = PROU) UA UROBILINIOGEN DIPSTICK 0.2 mg/dL NORM (test code = URO) UA NITRITE DIPSTICK (test code NEGATIVE NEG = CAROL) UA LEUKOCYTE ESTERASE DIPSTICK NEGATIVE NEGATIVE (test code = LEUU) UA WBC (test code = WBCU) <5 /HPF 0-2 UA RBC (test code = RBCU) 0-2 /HPF 0-2 UA EPITHELIAL CELLS (test code RARE /HPF 0-2 = EPIU) UA BACTERIA (test code = BACU) FEW /HPF NONE CBC W/AUTO [id number] 14:32:00 Test Item Value Reference Range Interpretation Comments WHITE BLOOD CELL (test code = WBC) 9.7 K/mm3 5.7-10.5 N RED BLOOD CELL (test code = RBC) 4.80 M/mm3 4.2-5.4 N HEMOGLOBIN (test code = HGB) 13.2 g/dL 12-16 N HEMATOCRIT (test code = HCT) 40.7 % 37-47 N MEAN CELL VOLUME (test code = MCV) 85 fL 80-98 N MEAN CELL HGB (test code = MCH) 27.5 pg 27-34 N MEAN CELL HGB CONCENTRATION (test 32.4 g/dL 30.8-34.1 N code = MCHC) RED CELL DISTRIBUTION WIDTH (test 13.6 % 11-16 N code = RDW) PLT (test code = PLT) 204 K/mm3 130-400 N MEAN PLATELET VOLUME (test code = 12.5 fL 8.9-12.1 H MPV) NEUTROPHIL % (test code = NT%) 65.4 % 45-70 N LYMPHOCYTE % (test code = LY%) 24.4 % 20-40 N MONOCYTE % (test code = MO%) 6.4 % 3-10 N EOSINOPHIL % (test code = EO%) 2.3 % 1-5 N BASOPHIL % (test code = BA%) 0.6 % 0.0-1.1 N NEUTROPHIL # (test code = NT#) 6.31 K/mm3 2.00-7.50 N LYMPHOCYTE # (test code = LY#) 2.36 K/mm3 1.50-4.00 N MONOCYTE # (test code = MO#) 0.62 K/mm3 0.2-0.8 N EOSINOPHIL # (test code = EO#) 0.22 K/mm3 0.04-0.4 N BASOPHIL # (test code = BA#) 0.06 K/mm3 0.02-0.10 N MANUAL DIFF REQUIRED (test code = NO MANUAL DIFF MDIFF) NUCLEATED RED BLOOD CELL (test 0 % 0-0 N code = NRBC) POCT-GLUCOSE [id number] 16:02:00 Test Item Value Reference Range Interpretation Comments POC-GLUCOSE METER 91 mg/dL 70-110 TESTED AT [facility] 67 (BEAKER) (test code = [place] [id number] 1538) POCT-GLUCOSE [id number] 12:30:00 Test Item Value Reference Range Interpretation Comments POC-GLUCOSE METER 102 mg/dL 70-110 TESTED AT [facility] 6720 ([facility]) (test code = JM Bañuelos [place] 1538) [address] RAD, CHEST, 1 VIEW, NON [id number] 12:12:00Reason for exam:->pl effusionShould this be performed at the bedside?->YesFINAL REPORT Chest one view INDICATION: Pleural effusion COMPARISON: 11/10/2017 IM PRESSION: Right jugular line and median sternotomy changes are again noted. The cardiac silhouette is enlarged. There is mild pulmonary vascular congestion. Similar basilar opacities suggest atelectasis with possible minimal pleural effusions. Pneumonitis should be excluded clinically. No pneumothoraxis seen. The right diaphragm remains mildly elevated. Signed: Don Chávez MDReport VerifiedDate/Time: 11/11/2017 12:12:58 Reading Location: [facility] Radiology Reading Room Electronicallysigned by: DON CHÁVEZ M.D. on 11/11/2017 12:12 PMPOCT-GLUCOSE [id number] 08:18:00 Test Item Value Reference Range Interpretation Comments POC-GLUCOSE METER 107 mg/dL 70-110 TESTED AT [place] [address] ([facility]) (test code = JM Bañuelos [facility] 1538) [id number] BASIC METABOLIC [id number] 05:29:00 Test Item Value Reference Range Interpretation Comments SODIUM (BEAKER) 133 meq/L 136-145 L (test code = 381) POTASSIUM (BEAKER) 4.4 meq/L 3.5-5.1 (test code = 379) CHLORIDE (BEAKER) 102 meq/L 98-107 (test code = 382) CO2 (BEAKER) (test 24 meq/L 22-29 code = 355) BLOOD UREA NITROGEN 16 mg/dL 7-21 (BEAKER) (test code = 354) CREATININE (BEAKER) 1.09 mg/dL 0.57-1.25 (test code = 358) GLUCOSE RANDOM 102 mg/dL 70-105 (BEAKER) (test code = 652) CALCIUM (BEAKER) 8.9 mg/dL 8.4-10.2 (test code = 697) EGFR (BEAKER) (test mL/min/1.73 INSUFFIC IENT CLINICAL code = 1092) sq m DATA TO CALCULA TE ESTIMATED GFR. [id number] 05:28:00 Test Item Value Reference Range Interpretation Comments MAGNESIUM (BEAKER) (test code = 2.0 mg/dL 1.6-2.6 627) CBC (HEMOGRAM ONLY)2017-11-11 04:44:00 Test Item Value Reference Range Interpretation Comments WHITE BLOOD CELL COUNT (BEAKER) 12.7 K/ L 3.5-10.5 H (test code = 775) RED BLOOD CELL COUNT (BEAKER) 3.02 M/ L 4.63-6.08 L (test code = 761) HEMOGLOBIN (BEAKER) (test code = 8.5 GM/DL 13.7-17.5 L 410) HEMATOCRIT (BEAKER) (test code = 26.8 % 40.1-51.0 L 411) MEAN CORPUSCULAR VOLUME (BEAKER) 88.7 fL 79.0-92.2 (test code = 753) MEAN CORPUSCULAR HEMOGLOBIN 28.1 pg 25.7-32.2 (BEAKER) (test code = 751) MEAN CORPUSCULAR HEMOGLOBIN CONC 31.7 GM/DL 32.3-36.5 L (BEAKER) (test code = 752) RED CELL DISTRIBUTION WIDTH 14.7 % 11.6-14.4 H (BEAKER) (test code = 412) PLATELET COUNT (BEAKER) (test 463 K/CU MM 150-450 H code = 756) MEAN PLATELET VOLUME (BEAKER) 10.0 fL 9.4-12.4 (test code = 754) NUCLEATED RED BLOOD CELLS 0 /100 WBC 0-0 (BEAKER) (test code = 413) POCT-GLUCOSE [id number] 21:21:00 Test Item Value Reference Range Interpretation Comments POC-GLUCOSE METER 157 mg/dL 70-110 H TESTED AT [place] [address] ([facility]) (test code = JM TAM [place] 1538) [address] POCT-GLUCOSE [id number] 17:05:00 Test Item Value Reference Range Interpretation Comments POC-GLUCOSE METER 104 mg/dL 70-110 TESTED AT [facility] 6720 ([facility]) (test code = JM T[place] 1538) [address] POCT-GLUCOSE [id number] 12:06:00 Test Item Value Reference Range Interpretation Comments POC-GLUCOSE METER 177 mg/dL 70-110 H TESTED AT [facility] 6720 ([facility]) (test code = JM TAM [place] 1538) [address] RAD, CHEST, 1 VIEW, NON [id number] 09:30:00Reason for exam:->pl effusionShould this be performed at the bedside?->YesFINAL REPORT INDICATION: pl effusion TECHNIQUE: Chest radiograph, single view, p ortable technique. FINDINGS / IMPRESSION: Patient is status post median sternotomy. Heart shadow is prominent but there is no pulmonary venous congestion or edema. No definite pleural effusion demonstrated. Right internal jugular line terminates in the low SVC. Signed: Tien Lara Verified Date/Time: 11/10/2017 09:30:24 Reading Location: [address] Ortho Consult Reading Room POCT-GLUCOSE [id number] 08:04:00 Test Item Value Reference Range Interpretation Comments POC-GLUCOSE METER 149 mg/dL 70-110 H TESTED AT [facility] 6720 ([facility]) (test code = JM Bañuelos [facility] 1538) [address] BASIC METABOLIC [id number] 05:39:00 Test Item Value Reference Range Interpretation Comments SODIUM (BEAKER) 133 meq/L 136-145 L (test code = 381) POTASSIUM (BEAKER) 4.5 meq/L 3.5-5.1 (test code = 379) CHLORIDE (BEAKER) 101 meq/L 98-107 (test code = 382) CO2 (BEAKER) (test 23 meq/L 22-29 code = 355) BLOOD UREA NITROGEN 17 mg/dL 7-21 (BEAKER) (test code = 354) CREATININE (BEAKER) 1.06 mg/dL 0.57-1.25 (test code = 358) GLUCOSE RANDOM 134 mg/dL 70-105 H (BEAKER) (test code = 652) CALCIUM (BEAKER) 9.2 mg/dL 8.4-10.2 (test code = 697) EGFR (BEAKER) (test mL/min/1.73 INSUFFIC IENT CLINICAL code = 1092) sq m DATA TO CALCULA TE ESTIMATED GFR. [id number] 05:37:00 Test Item Value Reference Range Interpretation Comments MAGNESIUM (BEAKER) (test code = 2.4 mg/dL 1.6-2.6 627) CBC (HEMOGRAM ONLY)2017-11-10 04:45:00 Test Item Value Reference Range Interpretation Comments WHITE BLOOD CELL COUNT (BEAKER) 14.6 K/ L 3.5-10.5 H (test code = 775) RED BLOOD CELL COUNT (BEAKER) 2.90 M/ L 4.63-6.08 L (test code = 761) HEMOGLOBIN (BEAKER) (test code = 8.1 GM/DL 13.7-17.5 L 410) HEMATOCRIT (BEAKER) (test code = 25.9 % 40.1-51.0 L 411) MEAN CORPUSCULAR VOLUME (BEAKER) 89.3 fL 79.0-92.2 (test code = 753) MEAN CORPUSCULAR HEMOGLOBIN 27.9 pg 25.7-32.2 (BEAKER) (test code = 751) MEAN CORPUSCULAR HEMOGLOBIN CONC 31.3 GM/DL 32.3-36.5 L (BEAKER) (test code = 752) RED CELL DISTRIBUTION WIDTH 14.8 % 11.6-14.4 H (BEAKER) (test code = 412) PLATELET COUNT (BEAKER) (test 447 K/CU MM 150-450 code = 756) MEAN PLATELET VOLUME (BEAKER) 10.0 fL 9.4-12.4 (test code = 754) NUCLEATED RED BLOOD CELLS 0 /100 WBC 0-0 (BEAKER) (test code = 413) POCT-GLUCOSE [id number] 21:37:00 Test Item Value Reference Range Interpretation Comments POC-GLUCOSE METER 188 mg/dL 70-110 H TESTED AT [facility] 67 ([facility]) (test code = [place] T[place] 1538) [id number] POCT-GLUCOSE [id number] 17:48:00 Test Item Value Reference Range Interpretation Comments POC-GLUCOSE METER 157 mg/dL 70-110 H TESTED AT [facility] 6720 ([facility]) (test code = [place] 1538) [address] RAD, ABDOMEN/KUB, 1 VIEW [id number] 14:04:00Reason for exam:->nauseaFINAL REPORT Developing, three images HISTORY: Abdominal pain COMPARISON: None IMPRESSION:Bowel gas pattern nonobstructive. Lung bases clear. Signed: Harika Hui MDReport Verified Date/Time: 11/09/2017 14:04:02 Reading Location: [facility] B1 C013Y CT Body Reading Room Electronicallysigned by: HARIKA HUI M.D. on 11/09/2017 02:04 PMPOCT-GLUCOSE [id number] 13:09:00 Test Item Value Reference Range Interpretation Comments POC-GLUCOSE METER 145 mg/dL 70-110 H TESTED AT [place] [address] ([facility]) (test code = JM Bañuelos [facility] 1538) [id number] POCT-GLUCOSE [id number] 11:40:00 Test Item Value Reference Range Interpretation Comments POC-GLUCOSE METER 164 mg/dL 70-110 H TESTED AT [place] [address] ([facility]) (test code = JM Ba[facility]uelos [facility] 1538) [address] RAD, CHEST, 1 VIEW, NON [id number] 09:02:00Reason for exam:->pl effusionShould this be performed at the bedside?->YesFINAL REPORT INDICATION: pl effusion TECHNIQUE: Chest radiograph, single view, p ortable technique. FINDINGS / IMPRESSION: Prominent heart shadow and median sternotomy wires are noted. Improved aeration at the left lung base since November 08. No pulmonary venous congestion, edema,or large pleural effusion present. No consolidation or pneumothorax. Right internal jugular line appears in good position. Signed: Tien Laraort Verified Date/Time: 11/09/2017 09:02:58 Reading Location: [facility] B1 C013X Ortho Consult Reading Room -GLUCOSE [id number] 07:49:00 Test Item Value Reference Range Interpretation Comments POC-GLUCOSE METER 160 mg/dL 70-110 H TESTED AT [place] [address] ([facility]) (test code = JM Ba[facility]uelos [facility] 1538) [id number] BASIC METABOLIC [id number] 07:00:00 Test Item Value Reference Range Interpretation Comments SODIUM (BEAKER) 131 meq/L 136-145 L (test code = 381) POTASSIUM (BEAKER) 4.2 meq/L 3.5-5.1 (test code = 379) CHLORIDE (BEAKER) 102 meq/L 98-107 (test code = 382) CO2 (BEAKER) (test 20 meq/L 22-29 L code = 355) BLOOD UREA NITROGEN 18 mg/dL 7-21 (BEAKER) (test code = 354) CREATININE (BEAKER) 1.12 mg/dL 0.57-1.25 (test code = 358) GLUCOSE RANDOM 191 mg/dL 70-105 H (BEAKER) (test code = 652) CALCIUM (BEAKER) 8.6 mg/dL 8.4-10.2 (test code = 697) EGFR (BEAKER) (test mL/min/1.73 INSUFFIC IENT CLINICAL code = 1092) sq m DATA TO CALCULA TE ESTIMATED GFR. [id number] 06:32:00 Test Item Value Reference Range Interpretation Comments MAGNESIUM (BEAKER) (test code = 1.8 mg/dL 1.6-2.6 627) CBC (HEMOGRAM ONLY)2017-11-09 03:34:00 Test Item Value Reference Range Interpretation Comments WHITE BLOOD CELL COUNT (BEAKER) 14.7 K/ L 3.5-10.5 H (test code = 775) RED BLOOD CELL COUNT (BEAKER) 2.74 M/ L 4.63-6.08 L (test code = 761) HEMOGLOBIN (BEAKER) (test code = 7.6 GM/DL 13.7-17.5 L 410) HEMATOCRIT (BEAKER) (test code = 24.7 % 40.1-51.0 L 411) MEAN CORPUSCULAR VOLUME (BEAKER) 90.1 fL 79.0-92.2 (test code = 753) MEAN CORPUSCULAR HEMOGLOBIN 27.7 pg 25.7-32.2 (BEAKER) (test code = 751) MEAN CORPUSCULAR HEMOGLOBIN CONC 30.8 GM/DL 32.3-36.5 L (BEAKER) (test code = 752) RED CELL DISTRIBUTION WIDTH 14.8 % 11.6-14.4 H (BEAKER) (test code = 412) PLATELET COUNT (BEAKER) (test 390 K/CU MM 150-450 code = 756) MEAN PLATELET VOLUME (BEAKER) 10.2 fL 9.4-12.4 (test code = 754) NUCLEATED RED BLOOD CELLS 0 /100 WBC 0-0 (BEAKER) (test code = 413) POCT-GLUCOSE [id number] 21:35:00 Test Item Value Reference Range Interpretation Comments POC-GLUCOSE METER 196 mg/dL 70-110 H TESTED AT [facility] 6720 (BEAKER) (test code = [place] 1538) [address] RAD, CHEST, 1 VIEW, NON [id number] 17:12:00Reason for exam:->s/p pericardial windowShould this be [...] line terminates at the cavoatrial junction. Signed: Tien Lara [facility] Verified Date/Time: 11/08/2017 17:12:47 Reading Location: [address] Ultrasound Reading Room BLOOD GAS, [id number] 17:10:00 Test Item Value Reference Range Interpretation Comments PH ARTERIAL (BEAKER) (test code = 7.40 7.35-7.45 383) PCO2 ARTERIAL (BEAKER) (test code 37 mmHg 35-45 = 384) PO2 ARTERIAL (BEAKER) (test code 76 mmHg 80-90 L = 385) O2 SATURATION ARTERIAL (BEAKER) 95.3 % 96.0-97.0 L (test code = 386) HCO3 ARTERIAL (BEAKER) (test code 22 mmol/L 21-29 = 388) BASE EXCESS ARTERIAL (BEAKER) -2.5 mmol/L -2.0-3.0 L (test code = 387) PATIENT TEMPERATURE (BEAKER) 37.0 C (test code = 1818) FIO2 (BEAKER) (test code = 1819) 100.0 % BLOOD GAS, [id number] 16:48:00 Test Item Value Reference Range Interpretation Comments PH ARTERIAL (BEAKER) (test code = 7.33 7.35-7.45 L 383) PCO2 ARTERIAL (BEAKER) (test code 45 mmHg 35-45 = 384) PO2 ARTERIAL (BEAKER) (test code 21 mmHg 80-90 LL = 385) O2 SATURATION ARTERIAL (BEAKER) 33.1 % 96.0-97.0 L (test code = 386) HCO3 ARTERIAL (BEAKER) (test code 23 mmol/L 21-29 = 388) BASE EXCESS ARTERIAL (BEAKER) -3.2 mmol/L -2.0-3.0 L (test code = 387) PATIENT TEMPERATURE (BEAKER) 35.9 C (test code = 1818) FIO2 (BEAKER) (test code = 1819) 32.0 % CALCIUM, [id number] 16:42:00 Test Item Value Reference Range Interpretation Comments CALCIUM IONIZED (BEAKER) (test 1.09 mmol/L 1.12-1.27 L code = 698) PH, BLOOD (BEAKER) (test code = 7.33 1810) GLUCOSE-STAT [id number] 16:41:00 Test Item Value Reference Range Interpretation Comments GLUCOSE RANDOM (BEAKER) (test code 103 mg/dL 70-110 = 652) POTASSIUM-STAT [id number] 16:41:00 Test Item Value Reference Range Interpretation Comments POTASSIUM (BEAKER) (test code = 4.5 meq/L 3.6-5.5 379) HGB/HCT (H&H) - STAT [id number] 16:41:00 Test Item Value Reference Range Interpretation Comments HEMOGLOBIN (BEAKER) (test code = 8.5 g/dL 13.0-16.8 L 410) HEMATOCRIT (BEAKER) (test code = 25.0 % 40.0-50.0 L 411) SODIUM NA-STAT [id number] 16:41:00 Test Item Value Reference Range Interpretation Comments SODIUM (BEAKER) (test code = 381) 132 meq/L 135-148 L BLOOD GAS, [id number] 15:07:00 Test Item Value Reference Range Interpretation Comments PH ARTERIAL (BEAKER) (test code = 7.36 7.35-7.45 383) PCO2 ARTERIAL (BEAKER) (test code 42 mmHg 35-45 = 384) PO2 ARTERIAL (BEAKER) (test code 251 mmHg 80-90 H = 385) O2 SATURATION ARTERIAL (BEAKER) 99.5 % 96.0-97.0 H (test code = 386) HCO3 ARTERIAL (BEAKER) (test code 23 mmol/L 21-29 = 388) BASE EXCESS ARTERIAL (BEAKER) -2.0 mmol/L -2.0-3.0 (test code = 387) PATIENT TEMPERATURE (BEAKER) 36.7 C (test code = 1818) FIO2 (BEAKER) (test code = 1819) 100.0 % GLUCOSE-STAT [id number] 15:07:00 Test Item Value Reference Range Interpretation Comments GLUCOSE RANDOM (BEAKER) (test code 116 mg/dL 70-110 H = 652) HGB/HCT (H&H) - STAT [id number] 15:07:00 Test Item Value Reference Range Interpretation Comments HEMOGLOBIN (BEAKER) (test code = 9.2 g/dL 13.0-16.8 L 410) HEMATOCRIT (BEAKER) (test code = 27.0 % 40.0-50.0 L 411) SODIUM NA-STAT [id number] 15:07:00 Test Item Value Reference Range Interpretation Comments SODIUM (BEAKER) (test code = 381) 130 meq/L 135-148 L CALCIUM, [id number] 15:07:00 Test Item Value Reference Range Interpretation Comments CALCIUM IONIZED (BEAKER) (test 1.11 mmol/L 1.12-1.27 L code = 698) PH, BLOOD (BEAKER) (test code = 7.36 1810) POTASSIUM-STAT [id number] 15:06:00 Test Item Value Reference Range Interpretation Comments POTASSIUM (BEAKER) (test code = 4.6 meq/L 3.6-5.5 379) POCT-GLUCOSE [id number] 11:52:00 Test Item Value Reference Range Interpretation Comments POC-GLUCOSE METER 137 mg/dL 70-110 H TESTED AT [facility] 6720 (BEAKER) (test code = J[place] 1538) [address] POCT-GLUCOSE [id number] 07:53:00 Test Item Value Reference Range Interpretation Comments POC-GLUCOSE METER 143 mg/dL 70-110 H TESTED AT [facility] 6720 (BEAKER) (test code = JM [place] 1538) [address] BASIC METABOLIC [id number] 02:49:00 Test Item Value Reference Range Interpretation Comments SODIUM (BEAKER) 132 meq/L 136-145 L (test code = 381) POTASSIUM (BEAKER) 4.2 meq/L 3.5-5.1 (test code = 379) CHLORIDE (BEAKER) 101 meq/L 98-107 (test code = 382) CO2 (BEAKER) (test 22 meq/L 22-29 code = 355) BLOOD UREA NITROGEN 20 mg/dL 7-21 (BEAKER) (test code = 354) CREATININE (BEAKER) 1.15 mg/dL 0.57-1.25 (test code = 358) GLUCOSE RANDOM 232 mg/dL 70-105 H (BEAKER) (test code = 652) CALCIUM (BEAKER) 9.1 mg/dL 8.4-10.2 (test code = 697) EGFR (BEAKER) (test mL/min/1.73 INSUFFIC IENT CLINICAL code = 1092) sq m DATA TO CALCULA TE ESTIMATED GFR. [id number] 02:40:00 Test Item Value Reference Range Interpretation Comments MAGNESIUM (BEAKER) (test code = 1.9 mg/dL 1.6-2.6 627) [id number] 02:28:00 Test Item Value Reference Range Interpretation Comments PROTIME (BEAKER) (test code = 15.7 seconds 11.7-14.7 H 759) INR (BEAKER) (test code = 370) 1.3 <=5.9 PARTIAL THROMBOPLASTIN TIME 38.4 seconds 22.5-36.0 H (BEAKER) (test code = 760) RECOMMENDED COUMADIN/WARFARIN INR THERAPY RANGESSTANDARD DOSE: 2.0 - 3.0 Includes: PROPHYLAXIS for venous thrombosis, systemic embolization; TREATMENT for venous thrombosis and/or pulmonary embolus.HIGH RISK: Target INR is 2.5-3.5 for patients with mechanical heart valves.CBC (HEMOGRAM ONLY)2017-11-08 02:19:00 Test Item Value Reference Range Interpretation Comments WHITE BLOOD CELL COUNT (BEAKER) 15.8 K/ L 3.5-10.5 H (test code = 775) RED BLOOD CELL COUNT (BEAKER) 2.89 M/ L 4.63-6.08 L (test code = 761) HEMOGLOBIN (BEAKER) (test code = 8.2 GM/DL 13.7-17.5 L 410) HEMATOCRIT (BEAKER) (test code = 25.7 % 40.1-51.0 L 411) MEAN CORPUSCULAR VOLUME (BEAKER) 88.9 fL 79.0-92.2 (test code = 753) MEAN CORPUSCULAR HEMOGLOBIN 28.4 pg 25.7-32.2 (BEAKER) (test code = 751) MEAN CORPUSCULAR HEMOGLOBIN CONC 31.9 GM/DL 32.3-36.5 L (BEAKER) (test code = 752) RED CELL DISTRIBUTION WIDTH 14.6 % 11.6-14.4 H (BEAKER) (test code = 412) PLATELET COUNT (BEAKER) (test 398 K/CU MM 150-450 code = 756) MEAN PLATELET VOLUME (BEAKER) 10.2 fL 9.4-12.4 (test code = 754) NUCLEATED RED BLOOD CELLS 0 /100 WBC 0-0 (BEAKER) (test code = 413) POCT-GLUCOSE [id number] 22:01:00 Test Item Value Reference Range Interpretation Comments POC-GLUCOSE METER 258 mg/dL 70-110 H TESTED AT [place] [address] ([facility]) (test code = JM Bañuelos [facility] 1538) [id number] POCT-GLUCOSE [id number] 17:46:00 Test Item Value Reference Range Interpretation Comments POC-GLUCOSE METER 189 mg/dL 70-110 H TESTED AT [place] [address] ([facility]) (test code = JM Ba[place]uelos [place] 1538) [address] POCT-GLUCOSE [id number] 16:58:00 Test Item Value Reference Range Interpretation Comments POC-GLUCOSE METER 218 mg/dL 70-110 H TESTED AT [place] [address] ([facility]) (test code = JM Ba[place]uelos [place] 1538) [address] POCT-GLUCOSE [id number] 13:09:00 Test Item Value Reference Range Interpretation Comments POC-GLUCOSE METER 120 mg/dL 70-110 H TESTED AT [facility] 6720 ([facility]) (test code = JM Bañuelos [place] 1538) [address] POCT-GLUCOSE [id number] 13:01:00 Test Item Value Reference Range Interpretation Comments POC-GLUCOSE METER 138 mg/dL 70-110 H TESTED AT [place] [id number] ([facility]) (test code = JM Bañuelos [facility] 1538) [address] RAD, CHEST, 1 VIEW, NON [id number] 09:47:00Reason for exam:->s/p CABG FINAL REPORT INDICATION: s/p CABG TECHNIQUE: Chest radiograph, single view, portable technique. FINDINGS / IMPRESSION: Evidence of coronary artery bypass surgery. No pulmonary edema, apical cap, or pneumothorax demonstrated. Right internal jugular line terminates at the cavoatrialjunction. In summary, no evidence of postoperative complication. Signed: Tien Lara MDReport Verified Date/Time: 11/07/2017 09:47:42 Reading Location: [facility] Reading Room POCT-GLUCOSE [id number] 08:48:00 Test Item Value Reference Range Interpretation Comments POC-GLUCOSE METER 165 mg/dL 70-110 H TESTED AT [place] [address] ([facility]) (test code = JM Bañuelos [facility] 1538) [address] BASIC METABOLIC [id number] 06:08:00 Test Item Value Reference Range Interpretation Comments SODIUM (BEAKER) 132 meq/L 136-145 L (test code = 381) POTASSIUM (BEAKER) 4.3 meq/L 3.5-5.1 (test code = 379) CHLORIDE (BEAKER) 101 meq/L 98-107 (test code = 382) CO2 (BEAKER) (test 23 meq/L 22-29 code = 355) BLOOD UREA NITROGEN 20 mg/dL 7-21 (BEAKER) (test code = 354) CREATININE (BEAKER) 0.95 mg/dL 0.57-1.25 (test code = 358) GLUCOSE RANDOM 143 mg/dL 70-105 H (BEAKER) (test code = 652) CALCIUM (BEAKER) 8.9 mg/dL 8.4-10.2 (test code = 697) EGFR (BEAKER) (test mL/min/1.73 INSUFFIC IENT CLINICAL code = 1092) sq m DATA TO CALCULA TE ESTIMATED GFR. [id number] 06:07:00 Test Item Value Reference Range Interpretation Comments MAGNESIUM (BEAKER) (test code = 2.1 mg/dL 1.6-2.6 627) POCT-GLUCOSE [id number] 21:41:00 Test Item Value Reference Range Interpretation Comments POC-GLUCOSE METER 170 mg/dL 70-110 H TESTED AT [facility] 67 ([facility]) (test code = JM Bañuelos [facility] 1538) [address] RAD, CHEST, 1 VIEW, NON [id number] 07:57:00Reason for exam:->s/p CABG FINAL REPORT Chest one view compared to November 05 Discussion: There is improved aeration of the lower lungs with resolution of opacity on the right and minimal residual ill-defined opacity in the left. Mild cardiac prominence. No gross effusion or pneumothorax. Right sided central line unchanged. Signed: Natalia Richardseport Verified Date/Time: 11/06/2017 07:57:11 Reading Location: [facility] Radiology Reading Room POCT-GLUCOSE [id number] 07:07:00 Test Item Value Reference Range Interpretation Comments POC-GLUCOSE METER 131 mg/dL 70-110 H TESTED AT [place] [address] ([facility]) (test code = JM Bañuelos [facility] 1538) [address] BASIC METABOLIC [id number] 06:01:00 Test Item Value Reference Range Interpretation Comments SODIUM (BEAKER) 134 meq/L 136-145 L (test code = 381) POTASSIUM (BEAKER) 3.8 meq/L 3.5-5.1 (test code = 379) CHLORIDE (BEAKER) 101 meq/L 98-107 (test code = 382) CO2 (BEAKER) (test 23 meq/L 22-29 code = 355) BLOOD UREA NITROGEN 21 mg/dL 7-21 (BEAKER) (test code = 354) CREATININE (BEAKER) 0.92 mg/dL 0.57-1.25 (test code = 358) GLUCOSE RANDOM 121 mg/dL 70-105 H ([facility]) (test code = 652) CALCIUM ([facility]) 9.1 mg/dL 8.4-10.2 (test code = 697) EGFR ([facility]) (test mL/min/1.73 INSUFFIC IENT CLINICAL code = 1092) sq m DATA TO CALCULA TE ESTIMATED GFR. POCT-GLUCOSE [id number] 21:29:00 Test Item Value Reference Range Interpretation Comments POC-GLUCOSE METER 96 mg/dL 70-110 TESTED AT [place] [address] ([facility]) (test code = JM Bañuelos [facility] [address] 1538) POCT-GLUCOSE [id number] 16:25:00 Test Item Value Reference Range Interpretation Comments POC-GLUCOSE METER 226 mg/dL 70-110 H TESTED AT [place] [address] ([facility]) (test code = [facility] 1538) [address] POCT-GLUCOSE [id number] 12:13:00 Test Item Value Reference Range Interpretation Comments POC-GLUCOSE METER 149 mg/dL 70-110 H TESTED AT [place] [address] ([facility]) (test code = [facility] 1538) [address] RAD, CHEST, 1 VIEW, NON [id number] 08:21:00Reason for exam:->s/p CABG FINAL REPORT TECHNIQUE: Frontal chest radiograph dated 11/05/2017. [...] and well aligned. No fracture. Signed: Modesto Portilloeport Verified Date/Time: 11/05/2017 08:21:37 Reading Location: [facility] Radiology Reading Room -GLUCOSE [id number] 07:37:00 Test Item Value Reference Range Interpretation Comments POC-GLUCOSE METER 132 mg/dL 70-110 H TESTED AT [facility] 6720 (BEAKER) (test code = J[place] 1538) [address] BASIC METABOLIC [id number] 04:42:00 Test Item Value Reference Range Interpretation Comments SODIUM (BEAKER) 133 meq/L 136-145 L (test code = 381) POTASSIUM (BEAKER) 3.6 meq/L 3.5-5.1 (test code = 379) CHLORIDE (BEAKER) 101 meq/L 98-107 (test code = 382) CO2 (BEAKER) (test 23 meq/L 22-29 code = 355) BLOOD UREA NITROGEN 23 mg/dL 7-21 H (BEAKER) (test code = 354) CREATININE (BEAKER) 0.92 mg/dL 0.57-1.25 (test code = 358) GLUCOSE RANDOM 101 mg/dL 70-105 (BEAKER) (test code = 652) CALCIUM (BEAKER) 8.6 mg/dL 8.4-10.2 (test code = 697) EGFR (BEAKER) (test mL/min/1.73 INSUFFIC IENT CLINICAL code = 1092) sq m DATA TO CALCULA TE ESTIMATED GFR. CBC W/PLT COUNT & AUTO [id number] 04:14:00 Test Item Value Reference Range Interpretation Comments WHITE BLOOD CELL COUNT (BEAKER) 12.5 K/ L 3.5-10.5 H (test code = 775) RED BLOOD CELL COUNT (BEAKER) 3.09 M/ L 4.63-6.08 L (test code = 761) HEMOGLOBIN (BEAKER) (test code = 8.8 GM/DL 13.7-17.5 L 410) HEMATOCRIT (BEAKER) (test code = 26.8 % 40.1-51.0 L 411) MEAN CORPUSCULAR VOLUME (BEAKER) 86.7 fL 79.0-92.2 (test code = 753) MEAN CORPUSCULAR HEMOGLOBIN 28.5 pg 25.7-32.2 (BEAKER) (test code = 751) MEAN CORPUSCULAR HEMOGLOBIN CONC 32.8 GM/DL 32.3-36.5 (BEAKER) (test code = 752) RED CELL DISTRIBUTION WIDTH 14.1 % 11.6-14.4 (BEAKER) (test code = 412) PLATELET COUNT (BEAKER) (test 315 K/CU MM 150-450 code = 756) MEAN PLATELET VOLUME (BEAKER) 10.9 fL 9.4-12.4 (test code = 754) NUCLEATED RED BLOOD CELLS 1 /100 WBC 0-0 H (BEAKER) (test code = 413) NEUTROPHILS RELATIVE PERCENT 62 % (BEAKER) (test code = 429) LYMPHOCYTES RELATIVE PERCENT 20 % (BEAKER) (test code = 430) MONOCYTES RELATIVE PERCENT 12 % (BEAKER) (test code = 431) EOSINOPHILS RELATIVE PERCENT 3 % (BEAKER) (test code = 432) BASOPHILS RELATIVE PERCENT 1 % (BEAKER) (test code = 437) NEUTROPHILS ABSOLUTE COUNT 7.78 K/ L 1.78-5.38 H (BEAKER) (test code = 670) LYMPHOCYTES ABSOLUTE COUNT 2.52 K/ L 1.32-3.57 (BEAKER) (test code = 414) MONOCYTES ABSOLUTE COUNT (BEAKER) 1.46 K/ L 0.30-0.82 H (test code = 415) EOSINOPHILS ABSOLUTE COUNT 0.35 K/ L 0.04-0.54 (BEAKER) (test code = 416) BASOPHILS ABSOLUTE COUNT (BEAKER) 0.07 K/ L 0.01-0.08 (test code = 417) IMMATURE GRANULOCYTES-RELATIVE 3 % 0-1 H PERCENT (BEAKER) (test code = 2801) POCT-GLUCOSE [id number] 21:07:00 Test Item Value Reference Range Interpretation Comments POC-GLUCOSE METER 150 mg/dL 70-110 H TESTED AT [facility] 6720 ([facility]) (test code = JM [place] 1538) [address] POCT-GLUCOSE [id number] 17:19:00 Test Item Value Reference Range Interpretation Comments POC-GLUCOSE METER 216 mg/dL 70-110 H TESTED AT [facility] 6720 ([facility]) (test code = JM Bañuelos [facility] 1538) [address] RAD, CHEST, 1 VIEW, NON [id number] 12:23:00Reason for exam:->CABGFINAL REPORT CHEST ONE VIEW HISTORY: Status post CABG COMPARISON: 11/02/2017 FINDINGS: Single portable AP examination of the chest was performed. There is mild atelectasis at the left lung base, unchanged. Small left pleural effusion is also unchanged. Right lung clear. No pneumothorax. The cardiac shadow is mildly enlarged, unchanged. Sternotomy wires are present. Right jugular catheter tip is in the SVC region. Signed: Chacorta Mccord MDReport Verified Date/Time: 11/04/2017 12:23:52 Reading Location: [address] Transitional Reading Room POCT-GLUCOSE [id number] 12:20:00 Test Item Value Reference Range Interpretation Comments POC-GLUCOSE METER 174 mg/dL 70-110 H TESTED AT [facility] 6720 (BEAKER) (test code = JM Bañuelos T[place] 1538) [address] BASIC METABOLIC [id number] 09:58:00 Test Item Value Reference Range Interpretation Comments SODIUM (BEAKER) 130 meq/L 136-145 L (test code = 381) POTASSIUM (BEAKER) 3.9 meq/L 3.5-5.1 (test code = 379) CHLORIDE (BEAKER) 99 meq/L 98-107 (test code = 382) CO2 (BEAKER) (test 20 meq/L 22-29 L code = 355) BLOOD UREA NITROGEN 25 mg/dL 7-21 H (BEAKER) (test code = 354) CREATININE (BEAKER) 0.97 mg/dL 0.57-1.25 (test code = 358) GLUCOSE RANDOM 199 mg/dL 70-105 H (BEAKER) (test code = 652) CALCIUM (BEAKER) 8.6 mg/dL 8.4-10.2 (test code = 697) EGFR (BEAKER) (test mL/min/1.73 INSUFFIC IENT CLINICAL code = 1092) sq m DATA TO CALCULA TE ESTIMATED GFR. BASIC METABOLIC [id number] 04:36:00 Test Item Value Reference Range Interpretation Comments SODIUM (BEAKER) 132 meq/L 136-145 L (test code = 381) POTASSIUM (BEAKER) 3.8 meq/L 3.5-5.1 (test code = 379) CHLORIDE (BEAKER) 101 meq/L 98-107 (test code = 382) CO2 (BEAKER) (test 22 meq/L 22-29 code = 355) BLOOD UREA NITROGEN 24 mg/dL 7-21 H (BEAKER) (test code = 354) CREATININE (BEAKER) 0.88 mg/dL 0.57-1.25 (test code = 358) GLUCOSE RANDOM 89 mg/dL 70-105 (BEAKER) (test code = 652) CALCIUM (BEAKER) 9.0 mg/dL 8.4-10.2 (test code = 697) EGFR (BEAKER) (test mL/min/1.73 INSUFFIC IENT CLINICAL code = 1092) sq m DATA TO CALCULA TE ESTIMATED GFR. CBC W/PLT COUNT & AUTO [id number] 04:12:00 Test Item Value Reference Range Interpretation Comments WHITE BLOOD CELL COUNT (BEAKER) 14.2 K/ L 3.5-10.5 H (test code = 775) RED BLOOD CELL COUNT (BEAKER) 3.16 M/ L 4.63-6.08 L (test code = 761) HEMOGLOBIN (BEAKER) (test code = 8.8 GM/DL 13.7-17.5 L 410) HEMATOCRIT (BEAKER) (test code = 27.4 % 40.1-51.0 L 411) MEAN CORPUSCULAR VOLUME (BEAKER) 86.7 fL 79.0-92.2 (test code = 753) MEAN CORPUSCULAR HEMOGLOBIN 27.8 pg 25.7-32.2 (BEAKER) (test code = 751) MEAN CORPUSCULAR HEMOGLOBIN CONC 32.1 GM/DL 32.3-36.5 L (BEAKER) (test code = 752) RED CELL DISTRIBUTION WIDTH 14.0 % 11.6-14.4 (BEAKER) (test code = 412) PLATELET COUNT (BEAKER) (test 247 K/CU MM 150-450 code = 756) MEAN PLATELET VOLUME (BEAKER) 11.2 fL 9.4-12.4 (test code = 754) NUCLEATED RED BLOOD CELLS 1 /100 WBC 0-0 H (BEAKER) (test code = 413) NEUTROPHILS RELATIVE PERCENT 66 % (BEAKER) (test code = 429) LYMPHOCYTES RELATIVE PERCENT 20 % (BEAKER) (test code = 430) MONOCYTES RELATIVE PERCENT 11 % (BEAKER) (test code = 431) EOSINOPHILS RELATIVE PERCENT 2 % (BEAKER) (test code = 432) BASOPHILS RELATIVE PERCENT 0 % (BEAKER) (test code = 437) NEUTROPHILS ABSOLUTE COUNT 9.42 K/ L 1.78-5.38 H (BEAKER) (test code = 670) LYMPHOCYTES ABSOLUTE COUNT 2.80 K/ L 1.32-3.57 (BEAKER) (test code = 414) MONOCYTES ABSOLUTE COUNT (BEAKER) 1.55 K/ L 0.30-0.82 H (test code = 415) EOSINOPHILS ABSOLUTE COUNT 0.22 K/ L 0.04-0.54 (BEAKER) (test code = 416) BASOPHILS ABSOLUTE COUNT (BEAKER) 0.06 K/ L 0.01-0.08 (test code = 417) IMMATURE GRANULOCYTES-RELATIVE 1 % 0-1 PERCENT (BEAKER) (test code = 2801) BASIC METABOLIC [id number] 00:25:00 Test Item Value Reference Range Interpretation Comments SODIUM (BEAKER) 129 meq/L 136-145 L (test code = 381) POTASSIUM (BEAKER) 3.8 meq/L 3.5-5.1 (test code = 379) CHLORIDE (BEAKER) 99 meq/L 98-107 (test code = 382) CO2 (BEAKER) (test 21 meq/L 22-29 L code = 355) BLOOD UREA NITROGEN 26 mg/dL 7-21 H (BEAKER) (test code = 354) CREATININE (BEAKER) 0.93 mg/dL 0.57-1.25 (test code = 358) GLUCOSE RANDOM 87 mg/dL 70-105 (BEAKER) (test code = 652) CALCIUM (BEAKER) 8.6 mg/dL 8.4-10.2 (test code = 697) EGFR (BEAKER) (test mL/min/1.73 INSUFFIC IENT CLINICAL code = 1092) sq m DATA TO CALCULA TE ESTIMATED GFR. POCT-GLUCOSE [id number] 21:20:00 Test Item Value Reference Range Interpretation Comments POC-GLUCOSE METER 138 mg/dL 70-110 H TESTED AT [facility] 6720 (BEAKER) (test code = JM GALEANO 1538) [address] BASIC METABOLIC [id number] 20:36:00 Test Item Value Reference Range Interpretation Comments SODIUM (BEAKER) 127 meq/L 136-145 L (test code = 381) POTASSIUM (BEAKER) 3.9 meq/L 3.5-5.1 (test code = 379) CHLORIDE (BEAKER) 97 meq/L 98-107 L (test code = 382) CO2 (BEAKER) (test 21 meq/L 22-29 L code = 355) BLOOD UREA NITROGEN 28 mg/dL 7-21 H (BEAKER) (test code = 354) CREATININE (BEAKER) 1.06 mg/dL 0.57-1.25 (test code = 358) GLUCOSE RANDOM 138 mg/dL 70-105 H (BEAKER) (test code = 652) CALCIUM (BEAKER) 8.5 mg/dL 8.4-10.2 (test code = 697) EGFR (BEAKER) (test mL/min/1.73 INSUFFIC IENT CLINICAL code = 1092) sq m DATA TO CALCULA TE ESTIMATED GFR. POCT-GLUCOSE [id number] 17:41:00 Test Item Value Reference Range Interpretation Comments POC-GLUCOSE METER 221 mg/dL 70-110 H TESTED AT [facility] 6720 (BEAKER) (test code = JM Ba[facility]uelos [facility] 1538) [address] BASIC METABOLIC [id number] 15:35:00 Test Item Value Reference Range Interpretation Comments SODIUM (BEAKER) 127 meq/L 136-145 L (test code = 381) POTASSIUM (BEAKER) 3.9 meq/L 3.5-5.1 (test code = 379) CHLORIDE (BEAKER) 97 meq/L 98-107 L (test code = 382) CO2 (BEAKER) (test 21 meq/L 22-29 L code = 355) BLOOD UREA NITROGEN 27 mg/dL 7-21 H (BEAKER) (test code = 354) CREATININE (BEAKER) 0.99 mg/dL 0.57-1.25 (test code = 358) GLUCOSE RANDOM 109 mg/dL 70-105 H (BEAKER) (test code = 652) CALCIUM (BEAKER) 8.8 mg/dL 8.4-10.2 (test code = 697) EGFR (BEAKER) (test mL/min/1.73 INSUFFIC IENT CLINICAL code = 1092) sq m DATA TO CALCULA TE ESTIMATED GFR. PUL PERF IMAGING, PARTIC, [id number] 15:16:00FINAL REPORT PROCEDURE: V/Q LUNG SCAN CPT CODE: 94730 INDICATION: Dyspnea, cardiac origin suspected, respiratory insufficiency, [...] low probability of acute pulmonary embolization. Signed: Fili Del Cid MDReport Verified Date/Time: 11/03/2017 15:16:20 POCT-GLUCOSE [id number] 12:26:00 Test Item Value Reference Range Interpretation Comments POC-GLUCOSE METER 173 mg/dL 70-110 H TESTED AT [place] [address] ([facility]) ([facility] 1538) [address] BASIC METABOLIC [id number] 11:10:00 Test Item Value Reference Range Interpretation Comments SODIUM (BEAKER) 124 meq/L 136-145 L (test code = 381) POTASSIUM (BEAKER) 4.1 meq/L 3.5-5.1 (test code = 379) CHLORIDE (BEAKER) 94 meq/L 98-107 L (test code = 382) CO2 (BEAKER) (test 22 meq/L 22-29 code = 355) BLOOD UREA NITROGEN 27 mg/dL 7-21 H ([facility]) (test code = 354) CREATININE (BEAKER) 1.10 mg/dL 0.57-1.25 (test code = 358) GLUCOSE RANDOM 246 mg/dL 70-105 H ([facility]) (test code = 652) CALCIUM (BEAKER) 8.4 mg/dL 8.4-10.2 (test code = 697) EGFR ([facility]) (test mL/min/1.73 INSUFFIC IENT CLINICAL code = 1092) sq m DATA TO CALCULA TE ESTIMATED GFR. POCT-GLUCOSE [id number] 08:46:00 Test Item Value Reference Range Interpretation Comments POC-GLUCOSE METER 146 mg/dL 70-110 H TESTED AT [facility] 6720 (BEAKER) (test code = JM TAM [place] 1538) [address] OSMOLALITY, [id number] 08:04:00 Test Item Value Reference Range Interpretation Comments OSMOLALITY, SERUM (BEAKER) (test 270 mOsm/kg 275-295 L code = 615) OSMOLALITY, [id number] 08:04:00 Test Item Value Reference Range Interpretation Comments OSMOLALITY URINE (BEAKER) (test 290 mOsm/kg 40-1400 code = 614) CBC W/PLT COUNT & AUTO [id number] 07:43:00 Test Item Value Reference Range Interpretation Comments WHITE BLOOD CELL COUNT (BEAKER) 16.4 K/ L 3.5-10.5 H (test code = 775) RED BLOOD CELL COUNT (BEAKER) 3.06 M/ L 4.63-6.08 L (test code = 761) HEMOGLOBIN (BEAKER) (test code = 8.5 GM/DL 13.7-17.5 L 410) HEMATOCRIT (BEAKER) (test code = 26.2 % 40.1-51.0 L 411) MEAN CORPUSCULAR VOLUME (BEAKER) 85.6 fL 79.0-92.2 (test code = 753) MEAN CORPUSCULAR HEMOGLOBIN 27.8 pg 25.7-32.2 (BEAKER) (test code = 751) MEAN CORPUSCULAR HEMOGLOBIN CONC 32.4 GM/DL 32.3-36.5 (BEAKER) (test code = 752) RED CELL DISTRIBUTION WIDTH 13.7 % 11.6-14.4 (BEAKER) (test code = 412) PLATELET COUNT (BEAKER) (test 179 K/CU MM 150-450 code = 756) MEAN PLATELET VOLUME (BEAKER) 12.1 fL 9.4-12.4 (test code = 754) NUCLEATED RED BLOOD CELLS 0 /100 WBC 0-0 (BEAKER) (test code = 413) (CELLAVISION MANUAL DIFF)2017-11-03 07:43:00 Test Item Value Reference Range Interpretation Comments NEUTROPHILS - REL 69 % (CELLAVISION)(BEAKER) (test code = 2816) LYMPHOCYTES - REL 15 % (CELLAVISION)(BEAKER) (test code = 2817) MONOCYTES - REL 7 % (CELLAVISION)(BEAKER) (test code = 2818) BANDS - REL (CELLAVISION)(BEAKER) 9 % 0-10 (test code = 2826) NEUTROPHILS - ABS 11.32 K/ul 1.78-5.38 H (CELLAVISION)(BEAKER) (test code = 2830) LYMPHOCYTES - ABS 2.46 K/ul 1.32-3.57 (CELLAVISION)(BEAKER) (test code = 2831) MONOCYTES - ABS 1.15 K/uL 0.30-0.82 H (CELLAVISION)(BEAKER) (test code = 2832) BANDS - ABS (CELLAVISION)(BEAKER) 1.48 K/uL 0.00-0.80 H (test code = 2840) TOTAL COUNTED (BEAKER) (test code 100 = 1351) MANUAL NRBC PER 100 CELLS (BEAKER) 1 /100 WBC 0-0 H (test code = 1353) WBC MORPHOLOGY (BEAKER) (test code Normal = 487) PLT MORPHOLOGY (BEAKER) (test code Normal = 486) POLYCHROMATOPHILLIC RBCS(BEAKER) 1+ few (test code = 478) ANISOCYTOSIS (BEAKER) (test code = 1+ few 961) ARTIFACT (CELLAVISION)(BEAKER) Present (test code = 3432) PLATELET CONCENTRATION Adequate (CELLAVISION)(BEAKER) (test code = 3438) Received comment: User comments: Slide comments:BASIC METABOLIC [id number] 06:27:00 Test Item Value Reference Range Interpretation Comments SODIUM (BEAKER) 126 meq/L 136-145 L (test code = 381) POTASSIUM (BEAKER) 3.9 meq/L 3.5-5.1 (test code = 379) CHLORIDE (BEAKER) 97 meq/L 98-107 L (test code = 382) CO2 (BEAKER) (test 21 meq/L 22-29 L code = 355) BLOOD UREA NITROGEN 28 mg/dL 7-21 H (BEAKER) (test code = 354) CREATININE (BEAKER) 0.99 mg/dL 0.57-1.25 (test code = 358) GLUCOSE RANDOM 128 mg/dL 70-105 H (BEAKER) (test code = 652) CALCIUM (BEAKER) 8.6 mg/dL 8.4-10.2 (test code = 697) EGFR (BEAKER) (test mL/min/1.73 INSUFFIC IENT CLINICAL code = 1092) sq m DATA TO CALCULA TE ESTIMATED GFR. SODIUM, RANDOM [id number] 06:14:00 Test Item Value Reference Range Interpretation Comments SODIUM URINE (BEAKER) (test code = < meq/L 243) Reference Range: No NormalsTSH/FREE T4 IF [id number] 05:11:00 Test Item Value Reference Range Interpretation Comments THYROID STIMULATING HORMONE 0.82 uIU/mL 0.35-4.94 (BEAKER) (test code = 772) BASIC METABOLIC [id number] 04:36:00 Test Item Value Reference Range Interpretation Comments SODIUM (BEAKER) 127 meq/L 136-145 L (test code = 381) POTASSIUM (BEAKER) 4.0 meq/L 3.5-5.1 (test code = 379) CHLORIDE (BEAKER) 97 meq/L 98-107 L (test code = 382) CO2 (BEAKER) (test 21 meq/L 22-29 L code = 355) BLOOD UREA NITROGEN 28 mg/dL 7-21 H (BEAKER) (test code = 354) CREATININE (BEAKER) 0.97 mg/dL 0.57-1.25 (test code = 358) GLUCOSE RANDOM 119 mg/dL 70-105 H (BEAKER) (test code = 652) CALCIUM (BEAKER) 8.7 mg/dL 8.4-10.2 (test code = 697) EGFR (BEAKER) (test mL/min/1.73 INSUFFIC IENT CLINICAL code = 1092) sq m DATA TO CALCULA TE ESTIMATED GFR. BASIC METABOLIC [id number] 02:40:00 Test Item Value Reference Range Interpretation Comments SODIUM (BEAKER) 126 meq/L 136-145 L (test code = 381) POTASSIUM (BEAKER) 4.0 meq/L 3.5-5.1 (test code = 379) CHLORIDE (BEAKER) 96 meq/L 98-107 L (test code = 382) CO2 (BEAKER) (test 20 meq/L 22-29 L code = 355) BLOOD UREA NITROGEN 29 mg/dL 7-21 H (BEAKER) (test code = 354) CREATININE (BEAKER) 1.03 mg/dL 0.57-1.25 (test code = 358) GLUCOSE RANDOM 126 mg/dL 70-105 H (BEAKER) (test code = 652) CALCIUM (BEAKER) 8.7 mg/dL 8.4-10.2 (test code = 697) EGFR (BEAKER) (test mL/min/1.73 INSUFFIC IENT CLINICAL code = 1092) sq m DATA TO CALCULA TE ESTIMATED GFR. BASIC METABOLIC [id number] 01:03:00 Test Item Value Reference Range Interpretation Comments SODIUM (BEAKER) 125 meq/L 136-145 L (test code = 381) POTASSIUM (BEAKER) 3.9 meq/L 3.5-5.1 (test code = 379) CHLORIDE (BEAKER) 95 meq/L 98-107 L (test code = 382) CO2 (BEAKER) (test 20 meq/L 22-29 L code = 355) BLOOD UREA NITROGEN 29 mg/dL 7-21 H (BEAKER) (test code = 354) CREATININE (BEAKER) 1.10 mg/dL 0.57-1.25 (test code = 358) GLUCOSE RANDOM 134 mg/dL 70-105 H (BEAKER) (test code = 652) CALCIUM (BEAKER) 8.3 mg/dL 8.4-10.2 L (test code = 697) EGFR (BEAKER) (test mL/min/1.73 INSUFFIC IENT CLINICAL code = 1092) sq m DATA TO CALCULA TE ESTIMATED GFR. BASIC METABOLIC [id number] 23:48:00 Test Item Value Reference Range Interpretation Comments SODIUM (BEAKER) 124 meq/L 136-145 L (test code = 381) POTASSIUM (BEAKER) 3.8 meq/L 3.5-5.1 (test code = 379) CHLORIDE (BEAKER) 94 meq/L 98-107 L (test code = 382) CO2 (BEAKER) (test 19 meq/L 22-29 L code = 355) BLOOD UREA NITROGEN 30 mg/dL 7-21 H (BEAKER) (test code = 354) CREATININE (BEAKER) 1.12 mg/dL 0.57-1.25 (test code = 358) GLUCOSE RANDOM 147 mg/dL 70-105 H (BEAKER) (test code = 652) CALCIUM (BEAKER) 8.4 mg/dL 8.4-10.2 (test code = 697) EGFR (BEAKER) (test mL/min/1.73 INSUFFIC IENT CLINICAL code = 1092) sq m DATA TO CALCULA TE ESTIMATED GFR. POCT-GLUCOSE [id number] 22:10:00 Test Item Value Reference Range Interpretation Comments POC-GLUCOSE METER 176 mg/dL 70-110 H TESTED AT [facility] 6720 (BEAKER) (test code = JM TAM [place] 1538) [address] BASIC METABOLIC [id number] 21:04:00 Test Item Value Reference Range Interpretation Comments SODIUM (BEAKER) 125 meq/L 136-145 L (test code = 381) POTASSIUM (BEAKER) 3.9 meq/L 3.5-5.1 (test code = 379) CHLORIDE (BEAKER) 95 meq/L 98-107 L (test code = 382) CO2 (BEAKER) (test 19 meq/L 22-29 L code = 355) BLOOD UREA NITROGEN 27 mg/dL 7-21 H (BEAKER) (test code = 354) CREATININE (BEAKER) 1.08 mg/dL 0.57-1.25 (test code = 358) GLUCOSE RANDOM 121 mg/dL 70-105 H (BEAKER) (test code = 652) CALCIUM (BEAKER) 8.5 mg/dL 8.4-10.2 (test code = 697) EGFR (BEAKER) (test mL/min/1.73 INSUFFIC IENT CLINICAL code = 1092) sq m DATA TO CALCULA TE ESTIMATED GFR. BASIC METABOLIC [id number] 19:10:00 Test Item Value Reference Range Interpretation Comments SODIUM (BEAKER) 125 meq/L 136-145 L (test code = 381) POTASSIUM (BEAKER) 3.9 meq/L 3.5-5.1 (test code = 379) CHLORIDE (BEAKER) 94 meq/L 98-107 L (test code = 382) CO2 (BEAKER) (test 21 meq/L 22-29 L code = 355) BLOOD UREA NITROGEN 26 mg/dL 7-21 H (BEAKER) (test code = 354) CREATININE (BEAKER) 1.06 mg/dL 0.57-1.25 (test code = 358) GLUCOSE RANDOM 87 mg/dL 70-105 (BEAKER) (test code = 652) CALCIUM (BEAKER) 8.9 mg/dL 8.4-10.2 (test code = 697) EGFR (BEAKER) (test mL/min/1.73 INSUFFIC IENT CLINICAL code = 1092) sq m DATA TO CALCULA TE ESTIMATED GFR. CT, BRAIN, WITHOUT [id number] 17:07:00Reason for exam:->acute hyponatremiaWhat is the patient's sedation requirement?->No SedationFINAL REPORT CT head without contrast INDICATION: Encephalopathy, acute hyponatremia. TECHNIQUE: Axial noncontrast CT images through the head were obtained. This exam was performedaccording to our departmental dose optimization program which [...] for acute abnormality, MRI is advised. Signed: Don Chávez MDReport Verified Date/Time: 11/02/2017 17:07:14 Reading Location: [address] Neuro Reading Room BASI METABOLIC [id number] 16:05:00 Test Item Value Reference Range Interpretation Comments SODIUM (BEAKER) 124 meq/L 136-145 L (test code = 381) POTASSIUM (BEAKER) 3.8 meq/L 3.5-5.1 (test code = 379) CHLORIDE (BEAKER) 95 meq/L 98-107 L (test code = 382) CO2 (BEAKER) (test 21 meq/L 22-29 L code = 355) BLOOD UREA NITROGEN 26 mg/dL 7-21 H (BEAKER) (test code = 354) CREATININE (BEAKER) 1.03 mg/dL 0.57-1.25 (test code = 358) GLUCOSE RANDOM 113 mg/dL 70-105 H (BEAKER) (test code = 652) CALCIUM (BEAKER) 8.8 mg/dL 8.4-10.2 (test code = 697) EGFR (BEAKER) (test mL/min/1.73 INSUFFIC IENT CLINICAL code = 1092) sq m DATA TO CALCULA TE ESTIMATED GFR. RAD, CHEST, 1 VIEW, NON [id number] 15:21:00Reason for exam:->cvlShould this be performed at the bedside?->YesFINAL REPORT History: Shortness of breath Comparison: 0957 hours on 11/02/2017 Findings: There is mild persistent patchy airspace consolidation at the left lung base. There is a small left pleural effusion. These findings are unchanged. Right lung clear. No right pleural effusion. No pneumothorax. The cardiac shadow is partially obscured. Sternotomy wires are present. Right jugularcatheter tip is in the distal SVC region. IMPRESSION: 1. No change in the mild airspace consolidation at the left lung base and small left pleural effusion. Signed: Chacorta Mccord MDReport Verified Date/Time: 11/02/2017 15:21:03 Reading Location: [address] Transitional Reading Room BASI METABOLIC [id number] 13:40:00 Test Item Value Reference Range Interpretation Comments SODIUM (BEAKER) 123 meq/L 136-145 L (test code = 381) POTASSIUM (BEAKER) 4.0 meq/L 3.5-5.1 (test code = 379) CHLORIDE (BEAKER) 93 meq/L 98-107 L (test code = 382) CO2 (BEAKER) (test 21 meq/L 22-29 L code = 355) BLOOD UREA NITROGEN 28 mg/dL 7-21 H (BEAKER) (test code = 354) CREATININE (BEAKER) 1.16 mg/dL 0.57-1.25 (test code = 358) GLUCOSE RANDOM 155 mg/dL 70-105 H (BEAKER) (test code = 652) CALCIUM (BEAKER) 8.8 mg/dL 8.4-10.2 (test code = 697) EGFR (BEAKER) (test mL/min/1.73 INSUFFIC IENT CLINICAL code = 1092) sq m DATA TO CALCULA TE ESTIMATED GFR. OSMOLALITY, [id number] 12:56:00 Test Item Value Reference Range Interpretation Comments OSMOLALITY URINE (BEAKER) (test 283 mOsm/kg 40-1400 code = 614) URINALYSIS W/ [id number] 12:55:00 Test Item Value Reference Range Interpretation Comments COLOR (BEAKER) (test code = 470) Light Yellow CLARITY (BEAKER) (test code = Clear 469) SPECIFIC GRAVITY UA (BEAKER) 1.007 1.001-1.035 (test code = 468) PH UA (BEAKER) (test code = 467) 6.0 5.0-8.0 PROTEIN UA (BEAKER) (test code = Negative Negative 464) GLUCOSE UA (BEAKER) (test code = Negative Negative 365) KETONES UA (BEAKER) (test code = Negative Negative 371) BILIRUBIN UA (BEAKER) (test code Negative Negative = 462) BLOOD UA (BEAKER) (test code = Negative Negative 461) NITRITE UA (BEAKER) (test code = Negative Negative 465) LEUKOCYTE ESTERASE UA (BEAKER) Negative Negative (test code = 466) UROBILINOGEN UA (BEAKER) (test 0.2 mg/dL 0.2-1.0 code = 463) RBC UA (BEAKER) (test code = < /HPF 519) WBC UA (BEAKER) (test code = 2 /HPF 520) BACTERIA (BEAKER) (test code = Rare 517) SQUAMOUS EPITHELIAL (BEAKER) < /HPF (test code = 516) SOURCE(BEAKER) (test code = 6333) SODIUM, RANDOM [id number] 12:50:00 Test Item Value Reference Range Interpretation Comments SODIUM URINE (BEAKER) (test code = < meq/L 243) Reference Range: No NormalsSODIUM, RANDOM [id number] 12:50:00 Test Item Value Reference Range Interpretation Comments SODIUM URINE (BEAKER) (test code = < meq/L 243) Reference Range: No NormalsUREA NITROGEN, RANDOM [id number] 12:44:00 Test Item Value Reference Range Interpretation Comments UREA NITROGEN URINE (BEAKER) (test 446 mg/dL code = 538) Reference Range: No NormalsCHLORIDE, RANDOM [id number] 12:39:00 Test Item Value Reference Range Interpretation Comments CHLORIDE URINE (BEAKER) (test code = 23 meq/L 682) Reference Range: No [id number] 12:28:00 Test Item Value Reference Range Interpretation Comments CORTISOL, TOTAL (BEAKER) (test 18.6 ug/dL 3.7-19.4 code = 2755) BASIC METABOLIC [id number] 12:26:00 Test Item Value Reference Range Interpretation Comments SODIUM (BEAKER) 119 meq/L 136-145 LL (test code = 381) POTASSIUM (BEAKER) 4.1 meq/L 3.5-5.1 (test code = 379) CHLORIDE (BEAKER) 92 meq/L 98-107 L (test code = 382) CO2 (BEAKER) (test 18 meq/L 22-29 L code = 355) BLOOD UREA NITROGEN 27 mg/dL 7-21 H (BEAKER) (test code = 354) CREATININE (BEAKER) 1.08 mg/dL 0.57-1.25 (test code = 358) GLUCOSE RANDOM 188 mg/dL 70-105 H (BEAKER) (test code = 652) CALCIUM (BEAKER) 8.7 mg/dL 8.4-10.2 (test code = 697) EGFR (BEAKER) (test mL/min/1.73 INSUFFIC IENT CLINICAL code = 1092) sq m DATA TO CALCULA TE ESTIMATED GFR. URIC [id number] 12:09:00 Test Item Value Reference Range Interpretation Comments URIC ACID (BEAKER) (test code = 8.2 mg/dL 2.6-7.2 H 773) BLOOD GAS, [id number] 09:56:00 Test Item Value Reference Range Interpretation Comments PH ARTERIAL (BEAKER) (test code = 7.46 7.35-7.45 H 383) PCO2 ARTERIAL (BEAKER) (test code 28 mmHg 35-45 L = 384) PO2 ARTERIAL (BEAKER) (test code 90 mmHg 80-90 = 385) O2 SATURATION ARTERIAL (BEAKER) 97.5 % 96.0-97.0 H (test code = 386) HCO3 ARTERIAL (BEAKER) (test code 19 mmol/L 21-29 L = 388) BASE EXCESS ARTERIAL (BEAKER) -3.5 mmol/L -2.0-3.0 L (test code = 387) PATIENT TEMPERATURE (BEAKER) 36.4 C (test code = 1818) FIO2 (BEAKER) (test code = 1819) 90.0 % BASIC METABOLIC [id number] 09:34:00 Test Item Value Reference Range Interpretation Comments SODIUM (BEAKER) 118 meq/L 136-145 LL (test code = 381) POTASSIUM (BEAKER) 4.1 meq/L 3.5-5.1 (test code = 379) CHLORIDE (BEAKER) 91 meq/L 98-107 L (test code = 382) CO2 (BEAKER) (test 20 meq/L 22-29 L code = 355) BLOOD UREA NITROGEN 29 mg/dL 7-21 H (BEAKER) (test code = 354) CREATININE (BEAKER) 1.19 mg/dL 0.57-1.25 (test code = 358) GLUCOSE RANDOM 159 mg/dL 70-105 H (BEAKER) (test code = 652) CALCIUM (BEAKER) 8.6 mg/dL 8.4-10.2 (test code = 697) EGFR (BEAKER) (test mL/min/1.73 INSUFFIC IENT CLINICAL code = 1092) sq m DATA TO CALCULA TE ESTIMATED GFR. POCT-GLUCOSE [id number] 08:43:00 Test Item Value Reference Range Interpretation Comments POC-GLUCOSE METER 174 mg/dL 70-110 H TESTED AT [facility] 6720 (BEAKER) (test code = JM Bañuelos [facility] 1538) [id number] BASIC METABOLIC [id number] 08:12:00 Test Item Value Reference Range Interpretation Comments SODIUM (BEAKER) 119 meq/L 136-145 LL (test code = 381) POTASSIUM (BEAKER) 4.3 meq/L 3.5-5.1 (test code = 379) CHLORIDE (BEAKER) 92 meq/L 98-107 L (test code = 382) CO2 (BEAKER) (test 17 meq/L 22-29 L code = 355) BLOOD UREA NITROGEN 29 mg/dL 7-21 H (BEAKER) (test code = 354) CREATININE (BEAKER) 1.23 mg/dL 0.57-1.25 (test code = 358) GLUCOSE RANDOM 178 mg/dL 70-105 H (BEAKER) (test code = 652) CALCIUM (BEAKER) 8.6 mg/dL 8.4-10.2 (test code = 697) EGFR (BEAKER) (test mL/min/1.73 INSUFFIC IENT CLINICAL code = 1092) sq m DATA TO CALCULA TE ESTIMATED GFR. [id number] 07:59:00 Test Item Value Reference Range Interpretation Comments MAGNESIUM (BEAKER) (test code = 2.3 mg/dL 1.6-2.6 627) B-TYPE NATRIURETIC FACTOR (BNP)2017-11-02 07:47:00 Test Item Value Reference Range Interpretation Comments B-TYPE NATRIURETIC PEPTIDE (BEAKER) 154 pg/mL 0-100 H (test code = 700) CBC (HEMOGRAM ONLY)2017-11-02 07:30:00 Test Item Value Reference Range Interpretation Comments WHITE BLOOD CELL COUNT (BEAKER) 18.3 K/ L 3.5-10.5 H (test code = 775) RED BLOOD CELL COUNT (BEAKER) 3.40 M/ L 4.63-6.08 L (test code = 761) HEMOGLOBIN (BEAKER) (test code = 9.5 GM/DL 13.7-17.5 L 410) HEMATOCRIT (BEAKER) (test code = 29.3 % 40.1-51.0 L 411) MEAN CORPUSCULAR VOLUME (BEAKER) 86.2 fL 79.0-92.2 (test code = 753) MEAN CORPUSCULAR HEMOGLOBIN 27.9 pg 25.7-32.2 (BEAKER) (test code = 751) MEAN CORPUSCULAR HEMOGLOBIN CONC 32.4 GM/DL 32.3-36.5 (BEAKER) (test code = 752) RED CELL DISTRIBUTION WIDTH 13.6 % 11.6-14.4 (BEAKER) (test code = 412) PLATELET COUNT (BEAKER) (test 145 K/CU MM 150-450 L code = 756) MEAN PLATELET VOLUME (BEAKER) 13.1 fL 9.4-12.4 H (test code = 754) NUCLEATED RED BLOOD CELLS 0 /100 WBC 0-0 ([facility]) (test code = 413) POCT-GLUCOSE [id number] 20:48:00 Test Item Value Reference Range Interpretation Comments POC-GLUCOSE METER 240 mg/dL 70-110 H TESTED AT [place] [address] ([facility]) (test code = [facility] 1538) [id number] POCT-GLUCOSE [id number] 18:18:00 Test Item Value Reference Range Interpretation Comments POC-GLUCOSE METER 222 mg/dL 70-110 H TESTED AT [place] [address] ([facility]) (test code = [facility] 1538) [id number] POCT-GLUCOSE [id number] 13:59:00 Test Item Value Reference Range Interpretation Comments POC-GLUCOSE METER 194 mg/dL 70-110 H TESTED AT [place] [address] ([facility]) (test code = [facility] 1538) [id number] POCT-GLUCOSE [id number] 08:47:00 Test Item Value Reference Range Interpretation Comments POC-GLUCOSE METER 217 mg/dL 70-110 H TESTED AT [place] [address] ([facility]) (test code = [facility] 1538) [id number] BASIC METABOLIC [id number] 07:31:00 Test Item Value Reference Range Interpretation Comments SODIUM (BEAKER) 128 meq/L 136-145 L (test code = 381) POTASSIUM (BEAKER) 4.0 meq/L 3.5-5.1 (test code = 379) CHLORIDE (BEAKER) 100 meq/L 98-107 (test code = 382) CO2 (BEAKER) (test 20 meq/L 22-29 L code = 355) BLOOD UREA NITROGEN 18 mg/dL 7-21 (BEAKER) (test code = 354) CREATININE (BEAKER) 1.15 mg/dL 0.57-1.25 (test code = 358) GLUCOSE RANDOM 182 mg/dL 70-105 H (BEAKER) (test code = 652) CALCIUM (BEAKER) 8.9 mg/dL 8.4-10.2 (test code = 697) EGFR (BEAKER) (test mL/min/1.73 INSUFFIC IENT CLINICAL code = 1092) sq m DATA TO CALCULA TE ESTIMATED GFR. [id number] 07:24:00 Test Item Value Reference Range Interpretation Comments PHOSPHORUS (BEAKER) (test code = 2.5 mg/dL 2.3-4.7 604) [id number] 07:24:00 Test Item Value Reference Range Interpretation Comments MAGNESIUM (BEAKER) (test code = 2.0 mg/dL 1.6-2.6 627) CBC (HEMOGRAM ONLY)2017-11-01 07:02:00 Test Item Value Reference Range Interpretation Comments WHITE BLOOD CELL COUNT (BEAKER) 16.9 K/ L 3.5-10.5 H (test code = 775) RED BLOOD CELL COUNT (BEAKER) 3.47 M/ L 4.63-6.08 L (test code = 761) HEMOGLOBIN (BEAKER) (test code = 9.8 GM/DL 13.7-17.5 L 410) HEMATOCRIT (BEAKER) (test code = 30.1 % 40.1-51.0 L 411) MEAN CORPUSCULAR VOLUME (BEAKER) 86.7 fL 79.0-92.2 (test code = 753) MEAN CORPUSCULAR HEMOGLOBIN 28.2 pg 25.7-32.2 (BEAKER) (test code = 751) MEAN CORPUSCULAR HEMOGLOBIN CONC 32.6 GM/DL 32.3-36.5 (BEAKER) (test code = 752) RED CELL DISTRIBUTION WIDTH 13.8 % 11.6-14.4 (BEAKER) (test code = 412) PLATELET COUNT (BEAKER) (test 122 K/CU MM 150-450 L code = 756) MEAN PLATELET VOLUME (BEAKER) 12.6 fL 9.4-12.4 H (test code = 754) NUCLEATED RED BLOOD CELLS 0 /100 WBC 0-0 (BEAKER) (test code = 413) POCT-GLUCOSE [id number] 05:40:00 Test Item Value Reference Range Interpretation Comments POC-GLUCOSE METER 222 mg/dL 70-110 H TESTED AT [facility] 6720 (BEAKER) (test code = [facility] 1538) [address] RAD, CHEST, 1 VIEW, NON [id number] 04:55:00Reason for exam:->post CT removalFINAL REPORT CLINICAL INDICATION: Chest tube removal Comparison: 10/31/2017 The cardiomediastinal contours are stable. The lung volumes remain low. Central pulmonary vascular prominence and bilateral parenchymal opacities are unchanged. Blunting of the left costophrenic sulcus may reflect a small effusion. There is no pneumothorax. A left chest tube and right IJ CVC has been removed. Signed: Ivett Landon MDReport Verified Date/Time: 11/01/2017 04:55:17 Reading Location: [address] Reading Room POCT- GLUCOSE [id number] 23:11:00 Test Item Value Reference Range Interpretation Comments POC-GLUCOSE METER 249 mg/dL 70-110 H TESTED AT [place] [address] ([facility]) (test code = [email or web address] 1538) [id number] POCT-GLUCOSE [id number] 19:49:00 Test Item Value Reference Range Interpretation Comments POC-GLUCOSE METER 190 mg/dL 70-110 H TESTED AT [place] [address] ([facility]) (test code = [facility] 1538) [id number] POCT-GLUCOSE [id number] 11:30:00 Test Item Value Reference Range Interpretation Comments POC-GLUCOSE METER 206 mg/dL 70-110 H TESTED AT [place] [address] ([facility]) (test code = [employer] [facility] 1538) [address] POCT-GLUCOSE [id number] 07:19:00 Test Item Value Reference Range Interpretation Comments POC-GLUCOSE METER 107 mg/dL 70-110 TESTED AT [place] [address] ([facility]) (test code = [employer] [facility] 1538) [address] POCT-GLUCOSE [id number] 06:02:00 Test Item Value Reference Range Interpretation Comments POC-GLUCOSE METER 88 mg/dL 70-110 TESTED AT [place] [address] ([facility]) (test code = [employer] [facility] [address] 1538) RAD, CHEST, 1 VIEW, NON [id number] 04:57:00while patient is intubated or has chest tubes.Reason for exam:->s/p ACBShould this be performed at the bedside?->YesFINAL REPORT RAD, CHEST, 1 VIEW, NON DEPT INDICATION: s/p ACB COMPARISON: Priorday's exam FINDINGS: Portable frontal view of the chest. IMPRESSION: Support Lines: Interval extubation and removal of previously seen enteric tube. Interval removal of the previously seen mediastinal drain. Otherwise unchanged support apparatus. Lungs and pleura: Unchanged airspace and pleural opacities. No pneumothorax.Heart and mediastinum: Stable contours. Stable surgical changes.Additional findings: None. Signed: Chasity Avila Verified Date/Time: 10/31/2017 04:57:34 Reading Location: [address] Transitional Reading Room BASIC METABOLIC PANEL 2017-10-31 03:36:00 Test Item Value Reference Range Interpretation Comments SODIUM (BEAKER) 137 meq/L 136-145 (test code = 381) POTASSIUM (BEAKER) 3.9 meq/L 3.5-5.1 (test code = 379) CHLORIDE (BEAKER) 109 meq/L 98-107 H (test code = 382) CO2 (BEAKER) (test 20 meq/L 22-29 L code = 355) BLOOD UREA NITROGEN 15 mg/dL 7-21 (BEAKER) (test code = 354) CREATININE (BEAKER) 0.94 mg/dL 0.57-1.25 (test code = 358) GLUCOSE RANDOM 109 mg/dL 70-105 H (BEAKER) (test code = 652) CALCIUM (BEAKER) 8.5 mg/dL 8.4-10.2 (test code = 697) EGFR (BEAKER) (test mL/min/1.73 INSUFFIC IENT CLINICAL code = 1092) sq m DATA TO CALCULA TE ESTIMATED GFR. [id number] 03:34:00 Test Item Value Reference Range Interpretation Comments PHOSPHORUS (BEAKER) (test code = 3.7 mg/dL 2.3-4.7 604) [id number] 03:34:00 Test Item Value Reference Range Interpretation Comments MAGNESIUM (BEAKER) (test code = 1.9 mg/dL 1.6-2.6 627) CBC (HEMOGRAM ONLY)2017-10-31 03:12:00 Test Item Value Reference Range Interpretation Comments WHITE BLOOD CELL COUNT (BEAKER) 14.8 K/ L 3.5-10.5 H (test code = 775) RED BLOOD CELL COUNT (BEAKER) 3.51 M/ L 4.63-6.08 L (test code = 761) HEMOGLOBIN (BEAKER) (test code = 9.9 GM/DL 13.7-17.5 L 410) HEMATOCRIT (BEAKER) (test code = 30.8 % 40.1-51.0 L 411) MEAN CORPUSCULAR VOLUME (BEAKER) 87.7 fL 79.0-92.2 (test code = 753) MEAN CORPUSCULAR HEMOGLOBIN 28.2 pg 25.7-32.2 (BEAKER) (test code = 751) MEAN CORPUSCULAR HEMOGLOBIN CONC 32.1 GM/DL 32.3-36.5 L (BEAKER) (test code = 752) RED CELL DISTRIBUTION WIDTH 13.8 % 11.6-14.4 (BEAKER) (test code = 412) PLATELET COUNT (BEAKER) (test 127 K/CU MM 150-450 L code = 756) MEAN PLATELET VOLUME (BEAKER) 12.2 fL 9.4-12.4 (test code = 754) NUCLEATED RED BLOOD CELLS 0 /100 WBC 0-0 (BEAKER) (test code = 413) POCT-GLUCOSE [id number] 02:32:00 Test Item Value Reference Range Interpretation Comments POC-GLUCOSE METER 107 mg/dL 70-110 TESTED AT [place] [address] ([facility]) ([facility] 1538) [address] POCT-GLUCOSE [id number] 01:09:00 Test Item Value Reference Range Interpretation Comments POC-GLUCOSE METER 118 mg/dL 70-110 H TESTED AT [place] [address] ([facility]) (test [facility] = [facility] 1538) [address] POCT-GLUCOSE [id number] 00:31:00 Test Item Value Reference Range Interpretation Comments POC-GLUCOSE METER 115 mg/dL 70-110 H TESTED AT [place] [address] ([facility]) (test code = [facility] [employer] 1538) [address] POCT-GLUCOSE [id number] 22:56:00 Test Item Value Reference Range Interpretation Comments POC-GLUCOSE METER 149 mg/dL 70-110 H TESTED AT [place] [address] ([facility]) (test code = [facility] [employer] 1538) [address] POCT-GLUCOSE [id number] 22:16:00 Test Item Value Reference Range Interpretation Comments POC-GLUCOSE METER 153 mg/dL 70-110 H TESTED AT [place] [address] ([facility]) (test code = [facility] Ba[facility] 1538) [address] POCT-GLUCOSE [id number] 21:07:00 Test Item Value Reference Range Interpretation Comments POC-GLUCOSE METER 167 mg/dL 70-110 H TESTED AT [place] [address] ([facility]) (test code = [facility] Ba[facility]uelos [facility] 1538) [id number] LACTIC ACID, ARTERIAL, WHOLE [id number] 20:31:00 Test Item Value Reference Range Interpretation Comments LACTATE BLOOD ARTERIAL (2) 2.1 mmol/L 0.5-2.2 ([facility]) (test code = 2874) Effective 07/06/2015: Units/Reference Range ChangeNew: 0.5-2.2 mmol/L Previous: 5- 20 mg/[id number] 20:31:00 Test Item Value Reference Range Interpretation Comments MAGNESIUM (BEAKER) (test code = 2.0 mg/dL 1.6-2.6 627) [id number] 20:30:00 Test Item Value Reference Range Interpretation Comments POTASSIUM (BEAKER) (test code = 4.1 meq/L 3.5-5.1 379) CALCIUM, [id number] 20:12:00 Test Item Value Reference Range Interpretation Comments CALCIUM IONIZED (BEAKER) (test 1.15 mmol/L 1.12-1.27 code = 698) PH, BLOOD (AKER) (test code = 7.36 1810) POCT-GLUCOSE [id number] 20:08:00 Test Item Value Reference Range Interpretation Comments POC-GLUCOSE METER 190 mg/dL 70-110 H TESTED AT [place] [address] ([facility]) (test code = [facility] 1538) [address] POCT-GLUCOSE [id number] 19:08:00 Test Item Value Reference Range Interpretation Comments POC-GLUCOSE METER 206 mg/dL 70-110 H TESTED AT [place] [address] ([facility]) (test code = [facility] 1538) [address] BLOOD GAS, [id number] 17:52:00 Test Item Value Reference Range Interpretation Comments PH ARTERIAL (BEAKER) (test code = 7.38 7.35-7.45 383) PCO2 ARTERIAL (BEAKER) (test code 33 mmHg 35-45 L = 384) PO2 ARTERIAL (BEAKER) (test code 93 mmHg 80-90 H = 385) O2 SATURATION ARTERIAL (BEAKER) 97.0 % 96.0-97.0 (test code = 386) HCO3 ARTERIAL (BEAKER) (test code 19 mmol/L 21-29 L = 388) BASE EXCESS ARTERIAL (BEAKER) -5.6 mmol/L -2.0-3.0 L (test code = 387) PATIENT TEMPERATURE (BEAKER) 37.0 C (test code = 1818) FIO2 (BEAKER) (test code = 1819) 40.0 % RAD, CHEST, 1 VIEW, NON [id number] 17:41:00Reason for exam:->s/p ACBShould this be performed at the bedside?->YesFINAL REPORT Chest, one view. HISTORY: Postop COMPARISON: 10/29/2017 IMPRESSION: Endotracheal tube lies 4.8 cm proximal to the barry. Right IJ catheter tip overlies the expected region of the SVC/RA junction. Nasogastric tube tip overlies expected region of the gastric body. Two chest tubes are seen. No identifiable pneumothorax. Mild enlargement of the cardiomediastinal silhouette. Mild bibasilar/infrahilar atelectasis or consolidation. Low lung volumes. Signed: Frank Urbina MDReport Verified Date/Time: 10/30/2017 17:41:44 Reading Location: [facility] [id number] Consult Reading Room POCT-GLUCOSE [id number] 17:30:00 Test Item Value Reference Range Interpretation Comments POC-GLUCOSE METER 225 mg/dL 70-110 H TESTED AT [facility] 67 ([facility]) (test code = [facility] Ba[facility]uel[facility] 1538) [address] POCT-GLUCOSE [id number] 16:34:00 Test Item Value Reference Range Interpretation Comments POC-GLUCOSE METER 224 mg/dL 70-110 H TESTED AT [facility] 6720 ([facility]) (test code = [facility] [place] 1538) [address] CBC W/PLT COUNT & AUTO [id number] 15:30:00 Test Item Value Reference Range Interpretation Comments WHITE BLOOD CELL COUNT (BEAKER) 27.1 K/ L 3.5-10.5 H (test code = 775) RED BLOOD CELL COUNT (BEAKER) 4.16 M/ L 4.63-6.08 L (test code = 761) HEMOGLOBIN (BEAKER) (test code = 11.8 GM/DL 13.7-17.5 L 410) HEMATOCRIT (BEAKER) (test code = 36.6 % 40.1-51.0 L 411) MEAN CORPUSCULAR VOLUME (BEAKER) 88.0 fL 79.0-92.2 (test code = 753) MEAN CORPUSCULAR HEMOGLOBIN 28.4 pg 25.7-32.2 (BEAKER) (test code = 751) MEAN CORPUSCULAR HEMOGLOBIN CONC 32.2 GM/DL 32.3-36.5 L (BEAKER) (test code = 752) RED CELL DISTRIBUTION WIDTH 13.7 % 11.6-14.4 (BEAKER) (test code = 412) PLATELET COUNT (BEAKER) (test 167 K/CU MM 150-450 code = 756) MEAN PLATELET VOLUME (BEAKER) 12.1 fL 9.4-12.4 (test code = 754) NUCLEATED RED BLOOD CELLS 0 /100 WBC 0-0 (BEAKER) (test code = 413) (CELLAVISION MANUAL DIFF)2017-10-30 15:30:00 Test Item Value Reference Range Interpretation Comments NEUTROPHILS - REL 81 % (CELLAVISION)(BEAKER) (test code = 2816) LYMPHOCYTES - REL 4 % (CELLAVISION)(BEAKER) (test code = 2817) MONOCYTES - REL 5 % (CELLAVISION)(BEAKER) (test code = 2818) BANDS - REL (CELLAVISION)(BEAKER) 10 % 0-10 (test code = 2826) NEUTROPHILS - ABS 21.95 K/ul 1.78-5.38 H (CELLAVISION)(BEAKER) (test code = 2830) LYMPHOCYTES - ABS 1.08 K/ul 1.32-3.57 L (CELLAVISION)(BEAKER) (test code = 2831) MONOCYTES - ABS 1.36 K/uL 0.30-0.82 H (CELLAVISION)(BEAKER) (test code = 2832) BANDS - ABS (CELLAVISION)(BEAKER) 2.71 K/uL 0.00-0.80 H (test code = 2840) TOTAL COUNTED (BEAKER) (test code 100 = 1351) WBC MORPHOLOGY (BEAKER) (test code Normal = 487) PLT MORPHOLOGY (BEAKER) (test code Normal = 486) POIKILOCYTES (BEAKER) (test code = 1+ few 966) ARTIFACT (CELLAVISION)(BEAKER) Present (test code = 3432) PLATELET CONCENTRATION Adequate (CELLAVISION)(BEAKER) (test code = 3438) Received comment: User comments: Slide comments:[id number] 15:21:00 Test Item Value Reference Range Interpretation Comments POTASSIUM (BEAKER) (test code = 4.9 meq/L 3.5-5.1 379) [id number] 15:21:00 Test Item Value Reference Range Interpretation Comments MAGNESIUM (BEAKER) (test code = 1.9 mg/dL 1.6-2.6 627) [id number] 15:21:00 Test Item Value Reference Range Interpretation Comments PHOSPHORUS (BEAKER) (test code = 3.1 mg/dL 2.3-4.7 604) [id number] 15:21:00 Test Item Value Reference Range Interpretation Comments SODIUM (BEAKER) (test code = 381) 139 meq/L 136-145 [id number] 15:21:00 Test Item Value Reference Range Interpretation Comments GLUCOSE RANDOM (BEAKER) (test code 211 mg/dL 70-105 H = 652) BASIC METABOLIC [id number] 15:21:00 Test Item Value Reference Range Interpretation Comments SODIUM (BEAKER) 139 meq/L 136-145 (test code = 381) POTASSIUM (BEAKER) 4.9 meq/L 3.5-5.1 (test code = 379) CHLORIDE (BEAKER) 112 meq/L 98-107 H (test code = 382) CO2 (BEAKER) (test 20 meq/L 22-29 L code = 355) BLOOD UREA NITROGEN 17 mg/dL 7-21 (BEAKER) (test code = 354) CREATININE (BEAKER) 1.11 mg/dL 0.57-1.25 (test code = 358) GLUCOSE RANDOM 211 mg/dL 70-105 H (BEAKER) (test code = 652) CALCIUM (BEAKER) 8.6 mg/dL 8.4-10.2 (test code = 697) EGFR (BEAKER) (test mL/min/1.73 INSUFFIC IENT CLINICAL code = 1092) sq m DATA TO CALCULA TE ESTIMATED GFR. [id number] 15:20:00 Test Item Value Reference Range Interpretation Comments FIBRINOGEN LEVEL (BEAKER) (test 370 mg/dl 225-434 code = 658) [id number] 15:20:00 Test Item Value Reference Range Interpretation Comments PROTIME (BEAKER) (test code = 16.3 seconds 11.7-14.7 H 759) INR (BEAKER) (test code = 370) 1.3 <=5.9 PARTIAL THROMBOPLASTIN TIME 29.3 seconds 22.5-36.0 (BEAKER) (test code = 760) RECOMMENDED COUMADIN/WARFARIN INR THERAPY RANGESSTANDARD DOSE: 2.0 - 3.0 Includes: PROPHYLAXIS for venous thrombosis, systemic embolization; TREATMENT for venous thrombosis and/or pulmonary embolus.HIGH RISK: Target INR is 2.5-3.5 for patients with mechanical heart valves.LACTIC ACID, ARTERIAL, WHOLE BLOOD 2017-10-30 15:18:00 Test Item Value Reference Range Interpretation Comments LACTATE BLOOD 1.1 mmol/L 0.5-2.2 Specimen sligh tly ARTERIAL (2) (BEAKER) hemoly zed (test code = 2874) Effective 07/06/2015: Units/Reference Range ChangeNew: 0.5-2.2 mmol/L Previous: 5- 20 mg/dLOXYGEN SATURATION, [id number] 15:13:00 Test Item Value Reference Range Interpretation Comments O2 SATURATION (MEASURED) (BEAKER) 77.1 % (test code = 1455) CBC (HEMOGRAM ONLY)2017-10-30 15:02:00 Test Item Value Reference Range Interpretation Comments WHITE BLOOD CELL COUNT (BEAKER) 27.1 K/ L 3.5-10.5 H (test code = 775) RED BLOOD CELL COUNT (BEAKER) 4.16 M/ L 4.63-6.08 L (test code = 761) HEMOGLOBIN (BEAKER) (test code = 11.8 GM/DL 13.7-17.5 L 410) HEMATOCRIT (BEAKER) (test code = 36.6 % 40.1-51.0 L 411) MEAN CORPUSCULAR VOLUME (BEAKER) 88.0 fL 79.0-92.2 (test code = 753) MEAN CORPUSCULAR HEMOGLOBIN 28.4 pg 25.7-32.2 (BEAKER) (test code = 751) MEAN CORPUSCULAR HEMOGLOBIN CONC 32.2 GM/DL 32.3-36.5 L (BEAKER) (test code = 752) RED CELL DISTRIBUTION WIDTH 13.7 % 11.6-14.4 (BEAKER) (test code = 412) PLATELET COUNT (BEAKER) (test 167 K/CU MM 150-450 code = 756) MEAN PLATELET VOLUME (BEAKER) 12.1 fL 9.4-12.4 (test code = 754) NUCLEATED RED BLOOD CELLS 0 /100 WBC 0-0 (BEAKER) (test code = 413) HGB/HCT (H&H) - STAT [id number] 14:56:00 Test Item Value Reference Range Interpretation Comments HEMOGLOBIN (BEAKER) (test code = 12.1 g/dL 13.0-16.8 L 410) HEMATOCRIT (BEAKER) (test code = 36.0 % 40.0-50.0 L 411) CALCIUM, [id number] 14:56:00 Test Item Value Reference Range Interpretation Comments CALCIUM IONIZED (BEAKER) (test 1.07 mmol/L 1.12-1.27 L code = 698) PH, BLOOD (BEAKER) (test code = 7.29 1810) SODIUM NA-STAT [id number] 14:55:00 Test Item Value Reference Range Interpretation Comments SODIUM (BEAKER) (test code = 381) 136 meq/L 135-148 POTASSIUM-STAT [id number] 14:55:00 Test Item Value Reference Range Interpretation Comments POTASSIUM (BEAKER) (test code = 4.7 meq/L 3.6-5.5 379) GLUCOSE-STAT [id number] 14:55:00 Test Item Value Reference Range Interpretation Comments GLUCOSE RANDOM (BEAKER) (test code 209 mg/dL 70-110 H = 652) HEMOGLOBIN-STAT [id number] 14:55:00 Test Item Value Reference Range Interpretation Comments HEMOGLOBIN (BEAKER) (test code = 12.1 g/dL 13.0-16.8 L 410) HGB/HCT (H&H) - STAT [id number] 14:55:00 Test Item Value Reference Range Interpretation Comments HEMOGLOBIN (BEAKER) (test code = 12.1 GM/DL 13.0-16.8 L 410) HEMATOCRIT (BEAKER) (test code = 36.0 % 40.0-50.0 L 411) BLOOD GAS, [id number] 14:55:00 Test Item Value Reference Range Interpretation Comments PH ARTERIAL (BEAKER) (test code = 7.30 7.35-7.45 L 383) PCO2 ARTERIAL (BEAKER) (test code 46 mmHg 35-45 H = 384) PO2 ARTERIAL (BEAKER) (test code 162 mmHg 80-90 H = 385) O2 SATURATION ARTERIAL (BEAKER) 98.9 % 96.0-97.0 H (test code = 386) HCO3 ARTERIAL (BEAKER) (test code 23 mmol/L 21-29 = 388) BASE EXCESS ARTERIAL (BEAKER) -4.2 mmol/L -2.0-3.0 L (test code = 387) PATIENT TEMPERATURE (BEAKER) 36.4 C (test code = 1818) FIO2 (BEAKER) (test code = 1819) 60.0 % SODIUM NA-STAT [id number] 14:55:00 Test Item Value Reference Range Interpretation Comments SODIUM (BEAKER) (test code = 381) 136 meq/L 135-148 POTASSIUM-STAT [id number] 14:55:00 Test Item Value Reference Range Interpretation Comments POTASSIUM (BEAKER) (test code = 4.7 meq/L 3.6-5.5 379) GLUCOSE-STAT [id number] 14:55:00 Test Item Value Reference Range Interpretation Comments GLUCOSE RANDOM (BEAKER) (test code 209 mg/dL 70-110 H = 652) [id number] 14:02:00 Test Item Value Reference Range Interpretation Comments ACTIVATED CLOTTING TIME 109 sec TEST ED AT [place] [address] ([facility]) (test code = JM Bañuelos [place] [address]) [address] [id number] 14:02:00 Test Item Value Reference Range Interpretation Comments ACTIVATED CLOTTING TIME 433 sec TEST ED AT [place] [address] ([facility]) (test code = JM Bañuelos [place] [address]) [address] [id number] 14:02:00 Test Item Value Reference Range Interpretation Comments ACTIVATED CLOTTING TIME 422 sec TEST ED AT [place] [address] ([facility]) (test code = J[facility] Ba[facility]uelos [facility] 441) [address] [id number] 14:02:00 Test Item Value Reference Range Interpretation Comments ACTIVATED CLOTTING TIME 455 sec TEST ED AT [place] [address] ([facility]) (test code = JM Bañuelos [place] [address]) [address] CALCIUM, [id number] 13:33:00 Test Item Value Reference Range Interpretation Comments CALCIUM IONIZED (BEAKER) (test 1.19 mmol/L 1.12-1.27 code = 698) PH, BLOOD (BEAKER) (test code = 7.31 1810) BLOOD GAS, [id number] 13:32:00 Test Item Value Reference Range Interpretation Comments PH ARTERIAL (BEAKER) (test code = 7.33 7.35-7.45 L 383) PCO2 ARTERIAL (BEAKER) (test code 45 mmHg 35-45 = 384) PO2 ARTERIAL (BEAKER) (test code 108 mmHg 80-90 H = 385) O2 SATURATION ARTERIAL (BEAKER) 97.8 % 96.0-97.0 H (test code = 386) HCO3 ARTERIAL (BEAKER) (test code 23 mmol/L 21-29 = 388) BASE EXCESS ARTERIAL (BEAKER) -3.0 mmol/L -2.0-3.0 L (test code = 387) PATIENT TEMPERATURE (BEAKER) 35.8 C (test code = 1818) FIO2 (BEAKER) (test code = 1819) 100.0 % GLUCOSE-STAT [id number] 13:32:00 Test Item Value Reference Range Interpretation Comments GLUCOSE RANDOM (BEAKER) (test code 203 mg/dL 70-110 H = 652) HGB/HCT (H&H) - STAT [id number] 13:32:00 Test Item Value Reference Range Interpretation Comments HEMOGLOBIN (BEAKER) (test code = 10.3 g/dL 13.0-16.8 L 410) HEMATOCRIT (BEAKER) (test code = 30.0 % 40.0-50.0 L 411) SODIUM NA-STAT [id number] 13:30:00 Test Item Value Reference Range Interpretation Comments SODIUM (BEAKER) (test code = 381) 135 meq/L 135-148 POTASSIUM-STAT [id number] 13:30:00 Test Item Value Reference Range Interpretation Comments POTASSIUM (BEAKER) (test code = 4.7 meq/L 3.6-5.5 379) POTASSIUM-STAT [id number] 12:43:00 Test Item Value Reference Range Interpretation Comments POTASSIUM (BEAKER) (test code = 5.4 meq/L 3.6-5.5 379) BLOOD GAS, [id number] 12:43:00 Test Item Value Reference Range Interpretation Comments PH ARTERIAL (BEAKER) (test code = 7.33 7.35-7.45 L 383) PCO2 ARTERIAL (BEAKER) (test code 48 mmHg 35-45 H = 384) PO2 ARTERIAL (BEAKER) (test code 308 mmHg 80-90 H = 385) O2 SATURATION ARTERIAL (BEAKER) 99.7 % 96.0-97.0 H (test code = 386) HCO3 ARTERIAL (BEAKER) (test code 25 mmol/L 21-29 = 388) BASE EXCESS ARTERIAL (BEAKER) -1.5 mmol/L -2.0-3.0 (test code = 387) PATIENT TEMPERATURE (BEAKER) 36.8 C (test code = 1818) FIO2 (BEAKER) (test code = 1819) 80.0 % SODIUM NA-STAT [id number] 12:43:00 Test Item Value Reference Range Interpretation Comments SODIUM (BEAKER) (test code = 381) 133 meq/L 135-148 L GLUCOSE-STAT [id number] 12:43:00 Test Item Value Reference Range Interpretation Comments GLUCOSE RANDOM (BEAKER) (test code 195 mg/dL 70-110 H = 652) HGB/HCT (H&H) - STAT [id number] 12:43:00 Test Item Value Reference Range Interpretation Comments HEMOGLOBIN (BEAKER) (test code = 8.8 g/dL 13.0-16.8 L 410) HEMATOCRIT (BEAKER) (test code = 26.0 % 40.0-50.0 L 411) BLOOD GAS, [id number] 12:18:00 Test Item Value Reference Range Interpretation Comments PH ARTERIAL (BEAKER) (test code = 7.38 7.35-7.45 383) PCO2 ARTERIAL (BEAKER) (test code 38 mmHg 35-45 = 384) PO2 ARTERIAL (BEAKER) (test code 395 mmHg 80-90 H = 385) O2 SATURATION ARTERIAL (BEAKER) 99.8 % 96.0-97.0 H (test code = 386) HCO3 ARTERIAL (BEAKER) (test code 25 mmol/L 21-29 = 388) BASE EXCESS ARTERIAL (BEAKER) -2.8 mmol/L -2.0-3.0 L (test code = 387) PATIENT TEMPERATURE (BEAKER) 27.7 C (test code = 1818) FIO2 (BEAKER) (test code = 1819) 80.0 % GLUCOSE-STAT [id number] 12:18:00 Test Item Value Reference Range Interpretation Comments GLUCOSE RANDOM (BEAKER) (test code 192 mg/dL 70-110 H = 652) HGB/HCT (H&H) - STAT [id number] 12:18:00 Test Item Value Reference Range Interpretation Comments HEMOGLOBIN (BEAKER) (test code = 8.7 g/dL 13.0-16.8 L 410) HEMATOCRIT (BEAKER) (test code = 26.0 % 40.0-50.0 L 411) BLOOD GAS, [id number] 12:18:00 Test Item Value Reference Range Interpretation Comments PH VENOUS (BEAKER) (test code = 7.36 7.32-7.42 701) PCO2 VENOUS (BEAKER) (test code = 40 mmHg 41-51 L 755) PO2 VENOUS (BEAKER) (test code = 29 mmHg 25-40 702) O2 SATURATION VENOUS (BEAKER) 83.1 % 40.0-70.0 H (test code = 703) HCO3 VENOUS (BEAKER) (test code = 24 mmol/L 21-29 705) BASE EXCESS VENOUS (BEAKER) (test -3.3 mmol/L -2.0-3.0 L code = 704) PATIENT TEMPERATURE (BEAKER) 27.7 C (test code = 1818) FIO2 (BEAKER) (test code = 1819) 80.0 % SODIUM NA-STAT [id number] 12:17:00 Test Item Value Reference Range Interpretation Comments SODIUM (BEAKER) (test code = 381) 135 meq/L 135-148 POTASSIUM-STAT [id number] 12:17:00 Test Item Value Reference Range Interpretation Comments POTASSIUM (BEAKER) (test code = 4.2 meq/L 3.6-5.5 379) CALCIUM, [id number] 11:50:00 Test Item Value Reference Range Interpretation Comments CALCIUM IONIZED (BEAKER) (test 1.05 mmol/L 1.12-1.27 L code = 698) PH, BLOOD (BEAKER) (test code = 7.34 1810) BLOOD GAS, [id number] 11:50:00 Test Item Value Reference Range Interpretation Comments PH ARTERIAL (BEAKER) (test code = 7.34 7.35-7.45 L 383) PCO2 ARTERIAL (BEAKER) (test code 44 mmHg 35-45 = 384) PO2 ARTERIAL (BEAKER) (test code 126 mmHg 80-90 H = 385) O2 SATURATION ARTERIAL (BEAKER) 98.4 % 96.0-97.0 H (test code = 386) HCO3 ARTERIAL (BEAKER) (test code 23 mmol/L 21-29 = 388) BASE EXCESS ARTERIAL (BEAKER) -2.5 mmol/L -2.0-3.0 L (test code = 387) PATIENT TEMPERATURE (BEAKER) 36.4 C (test code = 1818) FIO2 (BEAKER) (test code = 1819) 55.0 % GLUCOSE-STAT [id number] 11:50:00 Test Item Value Reference Range Interpretation Comments GLUCOSE RANDOM (BEAKER) (test code 141 mg/dL 70-110 H = 652) HGB/HCT (H&H) - STAT [id number] 11:50:00 Test Item Value Reference Range Interpretation Comments HEMOGLOBIN (BEAKER) (test code = 12.0 g/dL 13.0-16.8 L 410) HEMATOCRIT (BEAKER) (test code = 35.0 % 40.0-50.0 L 411) SODIUM NA-STAT [id number] 11:49:00 Test Item Value Reference Range Interpretation Comments SODIUM (BEAKER) (test code = 381) 139 meq/L 135-148 POTASSIUM-STAT [id number] 11:49:00 Test Item Value Reference Range Interpretation Comments POTASSIUM (BEAKER) (test code = 4.1 meq/L 3.6-5.5 379) HEMOGLOBIN [id number] 09:17:00 Test Item Value Reference Range Interpretation Comments HEMOGLOBIN A1C (BEAKER) (test code = 7.0 % 4.3-6.1 H 368) HEMOGLOBIN [id number] 09:16:00 Test Item Value Reference Range Interpretation Comments HEMOGLOBIN A1C (BEAKER) (test code = 7.0 % 4.3-6.1 H 368) POCT-GLUCOSE [id number] 07:25:00 Test Item Value Reference Range Interpretation Comments POC-GLUCOSE METER 205 mg/dL 70-110 H TESTED AT [facility] 6720 (BEAKER) (test code = [facility] 1538) [address] BASIC METABOLIC [id number] 02:09:00 Test Item Value Reference Range Interpretation Comments SODIUM (BEAKER) 136 meq/L 136-145 (test code = 381) POTASSIUM (BEAKER) 4.1 meq/L 3.5-5.1 (test code = 379) CHLORIDE (BEAKER) 107 meq/L 98-107 (test code = 382) CO2 (BEAKER) (test 22 meq/L 22-29 code = 355) BLOOD UREA NITROGEN 18 mg/dL 7-21 (BEAKER) (test code = 354) CREATININE (BEAKER) 1.05 mg/dL 0.57-1.25 (test code = 358) GLUCOSE RANDOM 141 mg/dL 70-105 H (BEAKER) (test code = 652) CALCIUM (BEAKER) 9.1 mg/dL 8.4-10.2 (test code = 697) EGFR (BEAKER) (test mL/min/1.73 INSUFFIC IENT CLINICAL code = 1092) sq m DATA TO CALCULA TE ESTIMATED GFR. [id number] 02:06:00 Test Item Value Reference Range Interpretation Comments MAGNESIUM (BEAKER) (test code = 2.0 mg/dL 1.6-2.6 627) LIPID [id number] 02:06:00 Test Item Value Reference Range Interpretation Comments TRIGLYCERIDES (BEAKER) (test code = 264 mg/dL 540) CHOLESTEROL (BEAKER) (test code = 176 mg/dL 631) HDL CHOLESTEROL (BEAKER) (test code 33 mg/dL = 976) LDL CHOLESTEROL CALCULATED (BEAKER) 90 mg/dL (test code = 633) Triglyceride Reference Range: Low Risk <150 Borderline 150-199 High Risk 200-499 Very High Risk >=500Cholesterol Reference Range: Low Risk <200 Borderline 200-239 High Risk >240HDL Cholesterol Reference Range: Low Risk >=60 High Risk <40LDL Cholesterol Reference Range: Optimal <100 Near Optimal 100-129 Borderline 130-159 High 160-189 Very High >=[id number] 01:54:00 Test Item Value Reference Range Interpretation Comments PARTIAL THROMBOPLASTIN TIME 30.3 seconds 22.5-36.0 (BEAKER) (test code = 760) CBC (HEMOGRAM ONLY)2017-10-30 01:48:00 Test Item Value Reference Range Interpretation Comments WHITE BLOOD CELL COUNT (BEAKER) 10.6 K/ L 3.5-10.5 H (test code = 775) RED BLOOD CELL COUNT (BEAKER) 4.19 M/ L 4.63-6.08 L (test code = 761) HEMOGLOBIN (BEAKER) (test code = 11.9 GM/DL 13.7-17.5 L 410) HEMATOCRIT (BEAKER) (test code = 36.5 % 40.1-51.0 L 411) MEAN CORPUSCULAR VOLUME (BEAKER) 87.1 fL 79.0-92.2 (test code = 753) MEAN CORPUSCULAR HEMOGLOBIN 28.4 pg 25.7-32.2 (BEAKER) (test code = 751) MEAN CORPUSCULAR HEMOGLOBIN CONC 32.6 GM/DL 32.3-36.5 (BEAKER) (test code = 752) RED CELL DISTRIBUTION WIDTH 13.6 % 11.6-14.4 (BEAKER) (test code = 412) PLATELET COUNT (BEAKER) (test 178 K/CU MM 150-450 code = 756) MEAN PLATELET VOLUME (BEAKER) 11.7 fL 9.4-12.4 (test code = 754) NUCLEATED RED BLOOD CELLS 0 /100 WBC 0-0 (BEAKER) (test code = 413) [id number] 19:05:00 Test Item Value Reference Range Interpretation Comments THYROID STIMULATING HORMONE 0.53 uIU/mL 0.35-4.94 (BEAKER) (test code = 772) COMPREHENSIVE METABOLIC [id number] 18:55:00 Test Item Value Reference Range Interpretation Comments TOTAL PROTEIN 6.7 gm/dL 6.0-8.3 (BEAKER) (test code = 770) ALBUMIN (BEAKER) 3.8 g/dL 3.5-5.0 (test code = 1145) ALKALINE PHOSPHATASE 64 U/L 40-150 (BEAKER) (test code = 346) BILIRUBIN TOTAL 0.3 mg/dL 0.2-1.2 (BEAKER) (test code = 377) SODIUM (BEAKER) 137 meq/L 136-145 (test code = 381) POTASSIUM (BEAKER) 4.0 meq/L 3.5-5.1 (test code = 379) CHLORIDE (BEAKER) 106 meq/L 98-107 (test code = 382) CO2 (BEAKER) (test 20 meq/L 22-29 L code = 355) BLOOD UREA NITROGEN 18 mg/dL 7-21 (BEAKER) (test code = 354) CREATININE (BEAKER) 1.26 mg/dL 0.57-1.25 H (test code = 358) GLUCOSE RANDOM 324 mg/dL 70-105 H (BEAKER) (test code = 652) CALCIUM (BEAKER) 9.3 mg/dL 8.4-10.2 (test code = 697) AST (SGOT) (BEAKER) 21 U/L 5-34 (test code = 353) ALT (SGPT) (BEAKER) 36 U/L 6-55 (test code = 347) EGFR (BEAKER) (test mL/min/1.73 INSUFFIC IENT code = 1092) sq m CLINICAL DATA T O CALCULATE ESTIM ATED GFR. TROPONIN [id number] 18:51:00 Test Item Value Reference Range Interpretation Comments TROPONIN I (BEAKER) (test code = 0.02 ng/mL 0.00-0.03 397) Troponin I (TnI) levels must be interpreted [...] failure, acidosis, acute neurological disease, and persistent tachyarrhythmia.[id number] 18:46:00 Test Item Value Reference Range Interpretation Comments MAGNESIUM (BEAKER) (test code = 2.0 mg/dL 1.6-2.6 627) PROTHROMBIN TIME/[id number] 18:45:00 Test Item Value Reference Range Interpretation Comments PROTIME (BEAKER) (test code = 15.0 seconds 11.7-14.7 H 759) INR (BEAKER) (test code = 370) 1.2 <=5.9 RECOMMENDED COUMADIN/WARFARIN INR THERAPY RANGESSTANDARD DOSE: 2.0 - 3.0 Includes: PROPHYLAXIS for venous thrombosis, systemic embolization; TREATMENT for venous thrombosis and/or pulmonary embolus.HIGH RISK: Target INR is 2.5-3.5 for patients with mechanical heart valves.PT/[id number] 18:45:00 Test Item Value Reference Range Interpretation Comments PROTIME (BEAKER) (test code = 15.0 seconds 11.7-14.7 H 759) INR (BEAKER) (test code = 370) 1.2 <=5.9 PARTIAL THROMBOPLASTIN TIME 27.4 seconds 22.5-36.0 (BEAKER) (test code = 760) RECOMMENDED COUMADIN/WARFARIN INR THERAPY RANGESSTANDARD DOSE: 2.0 - 3.0 Includes: PROPHYLAXIS for venous thrombosis, systemic embolization; TREATMENT for venous thrombosis and/or pulmonary embolus.HIGH RISK: Target INR is 2.5-3.5 for patients with mechanical heart valves.Prior to initiating heparinPrior to initiating [id number] 18:45:00 Test Item Value Reference Range Interpretation Comments PARTIAL THROMBOPLASTIN TIME 27.4 seconds 22.5-36.0 (BEAKER) (test code = 760) CBC W/PLT COUNT & AUTO [id number] 18:30:00 Test Item Value Reference Range Interpretation Comments WHITE BLOOD CELL COUNT (BEAKER) 12.4 K/ L 3.5-10.5 H (test code = 775) RED BLOOD CELL COUNT (BEAKER) 4.37 M/ L 4.63-6.08 L (test code = 761) HEMOGLOBIN (BEAKER) (test code = 12.3 GM/DL 13.7-17.5 L 410) HEMATOCRIT (BEAKER) (test code = 37.9 % 40.1-51.0 L 411) MEAN CORPUSCULAR VOLUME (BEAKER) 86.7 fL 79.0-92.2 (test code = 753) MEAN CORPUSCULAR HEMOGLOBIN 28.1 pg 25.7-32.2 (BEAKER) (test code = 751) MEAN CORPUSCULAR HEMOGLOBIN CONC 32.5 GM/DL 32.3-36.5 (BEAKER) (test code = 752) RED CELL DISTRIBUTION WIDTH 13.6 % 11.6-14.4 (BEAKER) (test code = 412) PLATELET COUNT (BEAKER) (test 185 K/CU MM 150-450 code = 756) MEAN PLATELET VOLUME (BEAKER) 12.0 fL 9.4-12.4 (test code = 754) NUCLEATED RED BLOOD CELLS 0 /100 WBC 0-0 (BEAKER) (test code = 413) NEUTROPHILS RELATIVE PERCENT 68 % (BEAKER) (test code = 429) LYMPHOCYTES RELATIVE PERCENT 23 % (BEAKER) (test code = 430) MONOCYTES RELATIVE PERCENT 7 % (BEAKER) (test code = 431) EOSINOPHILS RELATIVE PERCENT 2 % (BEAKER) (test code = 432) BASOPHILS RELATIVE PERCENT 1 % (BEAKER) (test code = 437) NEUTROPHILS ABSOLUTE COUNT 8.41 K/ L 1.78-5.38 H (BEAKER) (test code = 670) LYMPHOCYTES ABSOLUTE COUNT 2.79 K/ L 1.32-3.57 (BEAKER) (test code = 414) MONOCYTES ABSOLUTE COUNT (BEAKER) 0.80 K/ L 0.30-0.82 (test code = 415) EOSINOPHILS ABSOLUTE COUNT 0.19 K/ L 0.04-0.54 (BEAKER) (test code = 416) BASOPHILS ABSOLUTE COUNT (BEAKER) 0.06 K/ L 0.01-0.08 (test code = 417) IMMATURE GRANULOCYTES-RELATIVE 1 % 0-1 PERCENT (BEAKER) (test code = 2801) PLATELET [id number] 18:29:00 Test Item Value Reference Range Interpretation Comments PLATELET COUNT (BEAKER) (test 185 K/CU MM 150-450 code = 756) RAD, CHEST, 1 VIEW, NON [id number] 15:52:00Reason for exam:->preopShould this be performed at the bedside?->YesFINAL REPORT CLINICAL HISTORY: preop TECHNIQUE: 1 view of the chest COMPARISON:None IMPRESSION: There are no focal infiltrates or pleural effusions. The cardiomediastinal silhouette is within normal limits for size. The visualized bones are intact. Signed: Venice Erwin MDReport Verified Date/Time: 10/29/2017 15:52:57 Reading Location: [facility] C013 Consult Reading Room CHEM [id number] 05:16:00 Test Item Value Reference Range Interpretation Comments Globulin (test code = Globulin) 3.7 2.0-4.0 [facility] [id number] 05:16:00 Test Item Value Reference Range Interpretation Comments A/G Ratio (test code = A/G Ratio) 0.8 0.7-1.6 [facility] [id number] 05:16:00 Test Item Value Reference Range Interpretation Comments AGAP (test code = AGAP) 13.9 10.0-20.0 [facility] [id number] 05:16:00 Test Item Value Reference Range Interpretation Comments B/C Ratio (test code = B/C Ratio) 11 6-25 [facility] [id number] 05:16:00 Test Item Value Reference Range Interpretation Comments eGFR (test code = eGFR) 94 [facility] [id number] 05:16:00 Test Item Value Reference Range Interpretation Comments Glucose Lvl (test code = Glucose Lvl) 98 70-99 [facility] [id number] 05:16:00 Test Item Value Reference Range Interpretation Comments BUN (test code = BUN) 10 - [facility] [id number] 05:16:00 Test Item Value Reference Range Interpretation Comments ALT (test code = ALT) 63 See_Comment [Auto mated message] The system which ge nerated this result transmit lou reference range : <=65. The reference range was not used to interpr et this result as you l/abnormal. [facility]2015-05-25 05:16:00 Test Item Value Reference Range Interpretation Comments AST (test code = AST) 31 See_Comment [Auto mated message] The system which ge nerated this result transmit lou reference range : <=37. The reference range was not used to interpr et this result as you l/abnormal. [facility]2015-05-25 05:16:00 Test Item Value Reference Range Interpretation Comments Albumin Lvl (test code = Albumin Lvl) 2.9 3.5-5.0 [facility]2015-05-25 05:16:00 Test Item Value Reference Range Interpretation Comments Bili Total (test code = Bili Total) 0.4 0.2-1.3 [facility]2015-05-25 05:16:00 Test Item Value Reference Range Interpretation Comments Alk Phos (test code = Alk Phos) 100 39-136 [facility]2015-05-25 05:16:00 Test Item Value Reference Range Interpretation Comments Potassium Lvl (test code = Potassium 3.9 3.5-5.1 Lvl) [facility]2015-05-25 05:16:00 Test Item Value Reference Range Interpretation Comments Sodium Lvl (test code = Sodium Lvl) 140 135-145 [facility]2015-05-25 05:16:00 Test Item Value Reference Range Interpretation Comments CO2 (test code = CO2) 22 24-32 [facility]2015-05-25 05:16:00 Test Item Value Reference Range Interpretation Comments Chloride Lvl (test code = Chloride Lvl) 108 95-109 [facility]2015-05-25 05:16:00 Test Item Value Reference Range Interpretation Comments Creatinine Lvl (test code = Creatinine 0.9 0.5-1.4 Lvl) [facility]2015-05-25 05:16:00 Test Item Value Reference Range Interpretation Comments Calcium Lvl (test code = Calcium Lvl) 9.0 8.5-10.5 [facility]2015-05-25 05:16:00 Test Item Value Reference Range Interpretation Comments Total Protein (test code = Total 6.6 6.4-8.4 Protein) [id number] 05:16:00 Test Item Value Reference Range Interpretation Comments Platelet (test code = Platelet) 176 133-450 [facility] WorthInqihraZDFPAZFAOX7776-98-76 05:16:00 Test Item Value Reference Range Interpretation Comments Hgb (test code = Hgb) 12.5 14.0-18.0 [facility] [id number] 05:16:00 Test Item Value Reference Range Interpretation Comments Hct (test code = Hct) 38.8 42.0-54.0 [facility] [id number] 05:16:00 Test Item Value Reference Range Interpretation Comments RBC (test code = RBC) 4.41 4.70-6.10 [facility] Wor[id number] 05:16:00 Test Item Value Reference Range Interpretation Comments MCV (test code = MCV) 88.1 80.0-94.0 [facility] WorthOaifllaFOCRKVGJVO6586-45-14 05:16:00 Test Item Value Reference Range Interpretation Comments MCH (test code = MCH) 28.3 pg 27.0-31.0 [facility] WorthQigqxzkKRUGCTHPBX4991-97-57 05:16:00 Test Item Value Reference Range Interpretation Comments MPV (test code = MPV) 10.3 7.4-10.4 [facility] [id number] 05:16:00 Test Item Value Reference Range Interpretation Comments RDW (test code = RDW) 13.7 11.5-14.5 [facility] [id number] 05:16:00 Test Item Value Reference Range Interpretation Comments MCHC (test code = MCHC) 32.1 32.0-36.0 [facility] [id number] 05:16:00 Test Item Value Reference Range Interpretation Comments WBC (test code = WBC) 11.4 3.7-10.4 [facility] [id number] 05:16:00 Test Item Value Reference Range Interpretation Comments Segs-Bands # (test code = Segs-Bands #) 7.9 1.5-8.1 [facility] Wor[id number] 05:16:00 Test Item Value Reference Range Interpretation Comments Lymphocytes # (test code = Lymphocytes 2.2 1.0-5.5 #) [facility] WorthYtyhwhuVGPIOFAXRL6445-62-94 05:16:00 Test Item Value Reference Range Interpretation Comments Monocytes (test code = Monocytes) 9.9 2.0-12.0 [facility] Wor[id number] 05:16:00 Test Item Value Reference Range Interpretation Comments Basophils (test code = 0.2 See_Comment [Aut omated message] The Basophils) system which ge nerated this result tra nsmitted reference range : <=1.0. The reference r mily was not used to int erpret this result as normal/abnormal . [facility] Wor[id number] 05:16:00 Test Item Value Reference Range Interpretation Comments Eosinophils (test code = 1.2 See_Comment [A utomated message] The Eosinophils) system which ge nerated this result tra nsmitted reference range : <=4.0. The reference r mily was not used to int erpret this result as normal/abnormal . [facility] WorthWzsnhvjTWWYXRHAYE5079-64-77 05:16:00 Test Item Value Reference Range Interpretation Comments Eosinophils # (test code 0.1 See_Comment [A utomated message] The = Eosinophils #) system whic h generated this result tra nsmitted reference range : <=0.5. The reference r mily was not used to int erpret this result as normal/abnormal . [facility] [id number] 05:16:00 Test Item Value Reference Range Interpretation Comments Monocytes # (test code 1.1 See_Comment [Aut omated message] The = Monocytes #) system which generated this result tra nsmitted reference range : <=0.8. The reference r mily was not used to int erpret this result as normal/abnormal . [facility] WorthFekczmsYZIPDPRSIM6670-57-20 05:16:00 Test Item Value Reference Range Interpretation Comments Lymphocytes (test code = Lymphocytes) 19.5 20.0-40.0 [facility] WorthIlywhkcOIFCYEJFAW0177-07-39 05:16:00 Test Item Value Reference Range Interpretation Comments Segs (test code = Segs) 69.2 45.0-75.0 [facility]2015-05-24 05:01:00 Test Item Value Reference Range Interpretation Comments eGFR (test code = eGFR) 94 [facility]2015-05-24 05:01:00 Test Item Value Reference Range Interpretation Comments Alk Phos (test code = Alk Phos) 84 39-136 [facility]2015-05-24 05:01:00 Test Item Value Reference Range Interpretation Comments Bili Total (test code = Bili Total) 0.5 0.2-1.3 [facility]2015-05-24 05:01:00 Test Item Value Reference Range Interpretation Comments ALT (test code = ALT) 45 See_Comment [Auto mated message] The system which ge nerated this result transmit lou reference range : <=65. The reference range was not used to interpr et this result as you l/abnormal. [facility]2015-05-24 05:01:00 Test Item Value Reference Range Interpretation Comments AST (test code = AST) 27 See_Comment [Auto mated message] The system which ge nerated this result transmit lou reference range : <=37. The reference range was not used to interpr et this result as you l/abnormal. [facility]2015-05-24 05:01:00 Test Item Value Reference Range Interpretation Comments Chloride Lvl (test code = Chloride Lvl) 107 95-109 [facility]2015-05-24 05:01:00 Test Item Value Reference Range Interpretation Comments BUN (test code = BUN) 15 7-22 [facility]2015-05-24 05:01:00 Test Item Value Reference Range Interpretation Comments Glucose Lvl (test code = Glucose Lvl) 113 70-99 [facility]2015-05-24 05:01:00 Test Item Value Reference Range Interpretation Comments Albumin Lvl (test code = Albumin Lvl) 3.1 3.5-5.0 [facility]2015-05-24 05:01:00 Test Item Value Reference Range Interpretation Comments CO2 (test code = CO2) 20 24-32 [facility]2015-05-24 05:01:00 Test Item Value Reference Range Interpretation Comments Calcium Lvl (test code = Calcium Lvl) 8.8 8.5-10.5 [facility]2015-05-24 05:01:00 Test Item Value Reference Range Interpretation Comments Total Protein (test code = Total 7.2 6.4-8.4 Protein) [facility]2015-05-24 05:01:00 Test Item Value Reference Range Interpretation Comments Creatinine Lvl (test code = Creatinine 0.9 0.5-1.4 Lvl) [facility]2015-05-24 05:01:00 Test Item Value Reference Range Interpretation Comments Sodium Lvl (test code = Sodium Lvl) 138 135-145 [facility]2015-05-24 05:01:00 Test Item Value Reference Range Interpretation Comments Potassium Lvl (test code = Potassium 4.1 3.5-5.1 Lvl) [facility]2015-05-24 05:01:00 Test Item Value Reference Range Interpretation Comments Globulin (test code = Globulin) 4.1 2.0-4.0 [facility]2015-05-24 05:01:00 Test Item Value Reference Range Interpretation Comments A/G Ratio (test code = A/G Ratio) 0.8 0.7-1.6 [place] [id number] 05:01:00 Test Item Value Reference Range Interpretation Comments AGAP (test code = AGAP) 15.1 10.0-20.0 [facility]2015-05-24 05:01:00 Test Item Value Reference Range Interpretation Comments B/C Ratio (test code = B/C Ratio) 17 6-25 [facility] WorthTplcfksMYGLYMNRHE2266-19-30 05:01:00 Test Item Value Reference Range Interpretation Comments Lymphocytes # (test code = Lymphocytes 2.3 1.0-5.5 #) [facility] WorthGpqxnjnXKCHQQVTHQ2095-68-29 05:01:00 Test Item Value Reference Range Interpretation Comments Eosinophils # (test code 0.1 See_Comment [A utomated message] The = Eosinophils #) system whic h generated this result tra nsmitted reference range : <=0.5. The reference r mily was not used to int erpret this result as normal/abnormal . [facility] WorthHrltjbaOBOQZHSVKL5040-07-38 05:01:00 Test Item Value Reference Range Interpretation Comments Basophils (test code = 0.3 See_Comment [Aut omated message] The Basophils) system which ge nerated this result tra nsmitted reference range : <=1.0. The reference r mily was not used to int erpret this result as normal/abnormal . [facility] WorthHhbzednREMAUMFCAK9328-96-79 05:01:00 Test Item Value Reference Range Interpretation Comments Monocytes # (test code 1.2 See_Comment [Aut omated message] The = Monocytes #) system which generated this result tra nsmitted reference range : <=0.8. The reference r mily was not used to int erpret this result as normal/abnormal . [facility] WorthMolxynuDZAAZQRPJD8718-31-18 05:01:00 Test Item Value Reference Range Interpretation Comments Segs-Bands # (test code = Segs-Bands #) 10.3 1.5-8.1 [facility] WorthFczrvqiFJQPNEKHXU6655-31-58 05:01:00 Test Item Value Reference Range Interpretation Comments Eosinophils (test code = 0.8 See_Comment [A utomated message] The Eosinophils) system which ge nerated this result tra nsmitted reference range : <=4.0. The reference r mily was not used to int erpret this result as normal/abnormal . [facility] WorthVkpwqriIHMXPXNJXD4541-17-65 05:01:00 Test Item Value Reference Range Interpretation Comments Monocytes (test code = Monocytes) 8.9 2.0-12.0 [facility] WorthWtkxkwbJEHSVQHUYW0070-49-47 05:01:00 Test Item Value Reference Range Interpretation Comments Segs (test code = Segs) 73.8 45.0-75.0 [facility] WorthZdrjnegRVCDCIXFNM6028-51-27 05:01:00 Test Item Value Reference Range Interpretation Comments Lymphocytes (test code = Lymphocytes) 16.2 20.0-40.0 [facility] WorthLmbegiuIJNQLPTCLZ8607-45-61 05:01:00 Test Item Value Reference Range Interpretation Comments Hct (test code = Hct) 39.7 42.0-54.0 [facility] WorthVyltxctKCZRKJPPRG9097-63-55 05:01:00 Test Item Value Reference Range Interpretation Comments MCV (test code = MCV) 87.4 80.0-94.0 [facility] WorthKaszlaxZCZTBWTIYI8185-61-26 05:01:00 Test Item Value Reference Range Interpretation Comments MCHC (test code = MCHC) 32.5 32.0-36.0 [facility] WorthQxgigqmBJPHRYRQHR7690-46-12 05:01:00 Test Item Value Reference Range Interpretation Comments MCH (test code = MCH) 28.5 pg 27.0-31.0 [facility] WorthGfjlltdEPIICUXDKE7634-62-33 05:01:00 Test Item Value Reference Range Interpretation Comments RDW (test code = RDW) 13.5 11.5-14.5 [facility] WorthIxologcCDRCHDGAIA6313-90-17 05:01:00 Test Item Value Reference Range Interpretation Comments Platelet (test code = Platelet) 163 133-990 [facility] WorthZhwxzjwQSRYEHZPCA4347-01-45 05:01:00 Test Item Value Reference Range Interpretation Comments MPV (test code = MPV) 10.2 7.4-10.4 [facility] WorthCurvolsCNCIQIPITY1804-27-10 05:01:00 Test Item Value Reference Range Interpretation Comments Hgb (test code = Hgb) 12.9 14.0-18.0 [facility] WorthMqjkbwcYPPPJKJEVG4867-57-29 05:01:00 Test Item Value Reference Range Interpretation Comments RBC (test code = RBC) 4.54 4.70-6.10 [facility] WorthIuptjqeRUSCXMPQOZ1657-68-76 05:01:00 Test Item Value Reference Range Interpretation Comments WBC (test code = WBC) 14.0 3.7-10.4 [facility] WorthGiqaotgJFHCKUHWWQ8749-62-71 20:35:00 Test Item Value Reference Range Interpretation Comments RBC (test code = RBC) 5.17 4.70-6.10 [facility] WorthLywflyoLIMWQFYNWS0210-42-50 20:35:00 Test Item Value Reference Range Interpretation Comments Hgb (test code = Hgb) 14.8 14.0-18.0 [facility] WorthQczvcaeGZKWTGZUAG4845-81-54 20:35:00 Test Item Value Reference Range Interpretation Comments Platelet (test code = Platelet) 212 133-450 [facility] WorthDpwhfcgUKCSXNNUFW2981-86-21 20:35:00 Test Item Value Reference Range Interpretation Comments WBC (test code = WBC) 20.3 3.7-10.4 [facility] WorthYiyedchFIVUKGGDVV9110-98-28 20:35:00 Test Item Value Reference Range Interpretation Comments MPV (test code = MPV) 10.2 7.4-10.4 [facility] WorthAnfdcmfZYNKORWSXJ1299-28-23 20:35:00 Test Item Value Reference Range Interpretation Comments MCV (test code = MCV) 87.7 80.0-94.0 [facility] WorthSzxvkccYUHQPVZUJG3785-10-50 20:35:00 Test Item Value Reference Range Interpretation Comments Hct (test code = Hct) 45.4 42.0-54.0 [facility] WorthZdazfctIRJHTKRFJP5685-23-11 20:35:00 Test Item Value Reference Range Interpretation Comments MCHC (test code = MCHC) 32.5 32.0-36.0 [facility] WorthVjxkwwbIPGJOJNZOW3144-88-89 20:35:00 Test Item Value Reference Range Interpretation Comments MCH (test code = MCH) 28.5 pg 27.0-31.0 [facility] WorthJysvcnuIKWGCKSFLT4364-47-86 20:35:00 Test Item Value Reference Range Interpretation Comments RDW (test code = RDW) 13.8 11.5-14.5 [facility] WorthFxykqmoOKKKPBLCVL6669-30-29 20:35:00 Test Item Value Reference Range Interpretation Comments Monocytes (test code = Monocytes) 8.6 2.0-12.0 [facility] WorthUoaciphWTTYYDFHLO9538-63-97 20:35:00 Test Item Value Reference Range Interpretation Comments Eosinophils (test code = 0.2 See_Comment [A utomated message] The Eosinophils) system which ge nerated this result tra nsmitted reference range : <=4.0. The reference r mily was not used to int erpret this result as normal/abnormal . [id number] 20:35:00 Test Item Value Reference Range Interpretation Comments Basophils (test code = 0.2 See_Comment [Aut omated message] The Basophils) system which ge nerated this result tra nsmitted reference range : <=1.0. The reference r mily was not used to int erpret this result as normal/abnormal . [facility] [id number] 20:35:00 Test Item Value Reference Range Interpretation Comments Segs-Bands # (test code = Segs-Bands #) 15.8 1.5-8.1 [facility] [id number] 20:35:00 Test Item Value Reference Range Interpretation Comments Lymphocytes # (test code = Lymphocytes 2.7 1.0-5.5 #) [facility] [id number] 20:35:00 Test Item Value Reference Range Interpretation Comments Monocytes # (test code 1.8 See_Comment [Aut omated message] The = Monocytes #) system which generated this result tra nsmitted reference range : <=0.8. The reference r mily was not used to int erpret this result as normal/abnormal . [id number] 20:35:00 Test Item Value Reference Range Interpretation Comments Segs (test code = Segs) 77.9 45.0-75.0 [facility] [id number] 20:35:00 Test Item Value Reference Range Interpretation Comments Lymphocytes (test code = Lymphocytes) 13.1 20.0-40.0 [facility] [employer] [id number] 15:05:00 Test Item Value Reference Range Interpretation Comments ABO/Rh (test code = ABO/Rh) A POS [facility] [employer] [id number] 15:05:00 Test Item Value Reference Range Interpretation Comments Antibody Scrn (test Negative (07/22/14 code = Antibody Scrn) 10:05 AM) [facility] [id number] 17:03:00 Test Item Value Reference Range Interpretation Comments eGFR (test code = eGFR) 83 [facility] [id number] 17:03:00 Test Item Value Reference Range Interpretation Comments Alk Phos (test code = Alk Phos) 91 39-136 [facility] [id number] 17:03:00 Test Item Value Reference Range Interpretation Comments Bili Total (test code = Bili Total) 0.4 0.2-1.3 [facility] [id number] 17:03:00 Test Item Value Reference Range Interpretation Comments Albumin Lvl (test code = Albumin Lvl) 4.0 3.5-5.0 [facility] [id number] 17:03:00 Test Item Value Reference Range Interpretation Comments ALT (test code = ALT) 58 See_Comment [Auto mated message] The system which ge nerated this result transmit lou reference range : <=65. The reference range was not used to interpr et this result as you l/abnormal. [facility] [id number] 17:03:00 Test Item Value Reference Range Interpretation Comments AST (test code = AST) 17 See_Comment [Auto mated message] The system which ge nerated this result transmit lou reference range : <=37. The reference range was not used to interpr et this result as you l/abnormal. [facility]2015-05-19 17:03:00 Test Item Value Reference Range Interpretation Comments CO2 (test code = CO2) 29 24-32 [facility]2015-05-19 17:03:00 Test Item Value Reference Range Interpretation Comments Calcium Lvl (test code = Calcium Lvl) 9.2 8.5-10.5 [facility]2015-05-19 17:03:00 Test Item Value Reference Range Interpretation Comments Total Protein (test code = Total 7.3 6.4-8.4 Protein) [facility]2015-05-19 17:03:00 Test Item Value Reference Range Interpretation Comments Sodium Lvl (test code = Sodium Lvl) 143 135-145 [facility]2015-05-19 17:03:00 Test Item Value Reference Range Interpretation Comments BUN (test code = BUN) 19 - [facility]2015-05-19 17:03:00 Test Item Value Reference Range Interpretation Comments Creatinine Lvl (test code = Creatinine 1.0 0.5-1.4 Lvl) [facility]2015-05-19 17:03:00 Test Item Value Reference Range Interpretation Comments Potassium Lvl (test code = Potassium 4.3 3.5-5.1 Lvl) [facility]2015-05-19 17:03:00 Test Item Value Reference Range Interpretation Comments Chloride Lvl (test code = Chloride Lvl) 106 95-109 [facility]2015-05-19 17:03:00 Test Item Value Reference Range Interpretation Comments Glucose Lvl (test code = Glucose Lvl) 87 70-99 [facility]2015-05-19 17:03:00 Test Item Value Reference Range Interpretation Comments A/G Ratio (test code = A/G Ratio) 1.2 0.7-1.6 [facility]2015-05-19 17:03:00 Test Item Value Reference Range Interpretation Comments AGAP (test code = AGAP) 12.3 10.0-20.0 [facility]2015-05-19 17:03:00 Test Item Value Reference Range Interpretation Comments B/C Ratio (test code = B/C Ratio) 19 6- [place] [id number] 17:03:00 Test Item Value Reference Range Interpretation Comments Globulin (test code = Globulin) 3.3 2.0-4.0 [facility] [id number] 17:03:00 Test Item Value Reference Range Interpretation Comments Eosinophils # (test code 0.1 See_Comment [A utomated message] The = Eosinophils #) system whic h generated this result tra nsmitted reference range : <=0.5. The reference r mily was not used to int erpret this result as normal/abnormal . [facility] [id number] 17:03:00 Test Item Value Reference Range Interpretation Comments INR (test code = INR) 1.00 0.85-1.17 [facility] [id number] 17:03:00 Test Item Value Reference Range Interpretation Comments PT (test code = PT) 13.2 s 12.0-14.7 [facility] [id number] 17:03:00 Test Item Value Reference Range Interpretation Comments PTT (test code = PTT) 33.7 s 22.9-35.8 [facility] AND [id number] 17:03:00 Test Item Value Reference Range Interpretation Comments UA Mucus (test code = UA Mucus) Few /LPF [facility] [id number] 17:03:00 Test Item Value Reference Range Interpretation Comments UA WBC (test code = no gt See_Comment [Automa lou message] The UA WBC) system which ge nerated this result transmit lou reference range : <=5. The reference range was not used to interpr et this result as you l/abnormal. [facility] AND [id number] 17:03:00 Test Item Value Reference Range Interpretation Comments UA Nitrite (test code Negative (07/20/14 12:03 = UA Nitrite) PM) [facility] [id number] 17:03:00 Test Item Value Reference Range Interpretation Comments UA Urobilinogen (test code = UA 0.2 0.1-1.0 Urobilinogen) [facility] AND [id number] 17:03:00 Test Item Value Reference Range Interpretation Comments UA pH (test code = UA pH) 5.5 1 5.0-8.0 [facility] AND [id number] 17:03:00 Test Item Value Reference Range Interpretation Comments UA Leuk Est (test Negative (07/20/14 12:03 code = UA Leuk Est) PM) [facility] AND [id number] 17:03:00 Test Item Value Reference Range Interpretation Comments UA Glucose (test code = UA Negative mg/dL Glucose) [facility] [id number] 17:03:00 Test Item Value Reference Range Interpretation Comments UA Protein (test code = UA Negative mg/dL Protein) [facility] AND [id number] 17:03:00 Test Item Value Reference Range Interpretation Comments UA Bili (test code = Negative *NA*(07/20/14 UA Bili) 12:03 PM) [facility] [id number] 17:03:00 Test Item Value Reference Range Interpretation Comments UA Blood (test code = Negative (07/20/14 12:03 UA Blood) PM) [facility] [id number] 17:03:00 Test Item Value Reference Range Interpretation Comments UA Ketones (test code = UA Negative mg/dL Ketones) [facility] [id number] 17:03:00 Test Item Value Reference Range Interpretation Comments UA Color (test code = Yellow *NA*(07/20/14 UA Color) 12:03 PM) [facility] AND [id number] 17:03:00 Test Item Value Reference Range Interpretation Comments UA Turbidity (test code = Clear (07/20/14 12:03 UA Turbidity) PM) [facility] AND [id number] 17:03:00 Test Item Value Reference Range Interpretation Comments UA Spec Grav (test code = UA Spec 1.020 1 Grav) [facility] AND [id number] 17:03:00 Test Item Value Reference Range Interpretation Comments UA Sq Epi (test code = None Seen (07/20/14 UA Sq Epi) 12:03 PM) [facility]
--- NOTE | 2022-02-02 15:44 | RAD REPORT ---
EXAM DESCRIPTION: CT - Head Brain Wo Cont - 02/02/2022 3:35 pm CLINICAL HISTORY: confusion Headache, drowsiness, alteration of awareness. COMPARISON: No comparisons TECHNIQUE: All CT scans are performed using dose optimization technique as appropriate and may inclu de automated exposure control or mA/KV adjustment according to patient size. FINDINGS: No intracranial hemorrhage, hydrocephalus or extra-axial fluid collection.No areas of brai n edema or evidence of midline shift. The paranasal sinuses and mastoids are clear. The calvarium is intact. IMPRESSION: No acute intracranial abnormality.
--- NOTE | 2022-02-02 15:47 | RAD REPORT ---
EXAM DESCRIPTION: RAD - Chest Pa And Lat (2 Views) - 02/02/2022 3:40 pm CLINICAL HISTORY: Congestion Chest pain. COMPARISON: Chest Single View dated 03/31/2018; Chest Pa And Lat (2 Views) dated 10/28/2017; CHEST SIN GLE VIEW dated 06/23/2013; CHEST PA AND LAT 2 VIEW dated 09/01/2005 FINDINGS: The lungs are clear. The heart is normal in size. No displaced fractures. Sternotomy wires . IMPRESSION: No acute or concerning finding suspected.
[2022-02-02 17:55] LABS: SARS-COV-2 RT PCR POSITIVE (NEGATIVE)
--- NOTE | 2022-02-02 18:05 | ER ---
Nurse's Notes [facility] Name: Rigo Gonzalez Age: 66 yrs Sex: Male : 1955 Arrival Date: 02/02/2022 Time: 14:52 Bed DIS6 Private MD: Dilan Martino Diagnosis: SARS-associated coronavirus as the cause of diseases classified elsewhere;Unspecified conjunctivitis Presentation: 02/02 15:14 Chief complaint: Patient states: tested positive for covid at home today with cough, kb3 congestion, fever, and left eye pain and discahrge. Coronavirus screen: Vaccine status: Patient reports receiving the 2nd dose of the covid vaccine. Client indicates they have traveled out of the [place] in the last 14 days. Client traveled to: [facility]. Ebola Screen: Patient negative for fever greater than or equal to 101.5 degrees Fahrenheit, and additional compatible Ebola Virus Disease symptoms Patient denies exposure to infectious person. Patient denies travel to an Ebola-affected area in the 21 days before illness onset. Initial Sepsis Screen: Does the patient meet any 2 criteria? No. Patient's initial sepsis screen is negative. Does the patient have a suspected source of infection? No. Patient's initial sepsis screen is negative. Risk Assessment: Do you want to hurt yourself or someone else? Patient reports no desire to harm self or others. Onset of symptoms was January 27, 2022. 15:14 Method Of Arrival: Ambulatory kb3 15:14 Acuity: HESHAM 4 kb3 Triage Assessment: 15:15 General: Appears in no apparent distress. Behavior is calm, cooperative. Pain: kb3 Complains of pain in head, chest, right arm, left arm, right leg and left leg Pain does not radiate. Pain currently is 5 out of 10 on a pain scale. Respiratory: Reports shortness of breath cough that is Breath sounds are clear Onset: The symptoms/episode began/occurred the patient has mild shortness of breath. Historical: - Allergies: 15:15 No Known Allergies; kb3 - PMHx: 15:15 Diabetes - NIDDM; Hypertension; Hypothyroidism; neuropathy; Vertigo; kb3 - PSHx: 15:15 None; kb3 - Immunization history:: Adult Immunizations up to date, Client reports receiving the 2nd dose of the Covid vaccine, Last tetanus immunization: unknown. - Social history:: Smoking status: Patient denies any tobacco usage or history of. Screenin:37 Abuse screen: Denies threats or abuse. Nutritional screening: No deficits noted. em6 Tuberculosis screening: No symptoms or risk factors identified. Fall Risk Total Lacy Fall Scale indicates No Risk (0-24 pts). Assessment: 16:40 General: Appears in no apparent distress. Behavior is cooperative. Pain: Denies pain. em6 Neuro: [place] Agitation-Sedation Scale (RASS): 0 - Alert and Calm. Respiratory: Reports shortness of breath cough that is Airway is patent Respiratory effort is even, unlabored. GI: No signs and/or symptoms were reported involving the gastrointestinal system. : No signs and/or symptoms were reported regarding the genitourinary system. EENT: No signs and/or symptoms were reported regarding the EENT system. Derm: No signs and/or symptoms reported regarding the dermatologic system. Musculoskeletal: Circulation, motion, and sensation intact. Range of motion: intact in all extremities. 16:41 Cardiovascular: Rhythm is sinus rhythm. Respiratory: Airway is patent Respiratory em6 effort is even, unlabored. 17:40 Reassessment: Patient appears in no apparent distress at this time. No changes from em6 previously documented assessment. Patient and/or family updated on plan of care and expected duration. Pain level reassessed. Patient is alert, oriented x 3, equal unlabored respirations, skin warm/dry/pink. Vital Signs: 15:14 BP 141 / 77; Pulse 88; Resp 20; Temp 99.1; Pulse Ox 98% ; Weight 122.47 kg; Height 6 kb3 ft. 2 in. (187.96 cm); Pain 5/10; 16:49 BP 123 / 62; Pulse 84; Resp 20; Temp 98.2; Pulse Ox 98% on R/A; em6 18:07 BP 135 / 74; Pulse 82; Resp 18; Pulse Ox 98% on R/A; em6 15:14 Body Mass Index 34.67 (122.47 kg, 187.96 cm) kb3 ED Course: 14:52 Patient arrived in ED. rg4 14:53 Candis Cifuentes DO is Private Physician. rg4 14:53 Dilan Martino MD is Private Physician. rg4 15:07 Génesis Richardson [facility]-C [facility]. kb 15:07 Miguel Bennett MD is Attending Physician. kb 15:15 Triage completed. kb3 15:15 Arm band placed on right wrist. kb3 15:36 CT Head Brain wo Cont In Process Unspecified. EDMS 15:42 Chest Pa And Lat (2 Views) XRAY In Process Unspecified. EDMS 16:33 Hope Bagley, RN is Primary Nurse. em6 16:41 Bed in low position. Call light in reach. Side rails up X 1. electronic device monitor on. Pulse em6 ox on. NIBP on. 17:10 COVID-19/FLU A+B Sent. em6 18:07 No provider procedures requiring assistance completed. Patient did not have IV access em6 during this emergency room visit. Administered Medications: No medications were administered Medication: 16:41 VIS not applicable for this client. em6 Outcome: 18:04 Discharge ordered by MD. kb 18:17 Discharged to home ambulatory. em6 18:17 Condition: stable 18:17 Discharge instructions given to patient, significant other, Instructed on discharge instructions, follow up and referral plans. medication usage, Demonstrated understanding of instructions, follow-up care, medications, Prescriptions given X 4. 18:18 Patient left the ED. em6 Signatures: Dispatcher [employer] EDIL Génesis Richardson FNP-C FNP-Armida Pinto rg4 Hope Bagley, RN RN em6 Inés Perdue, RN RN kb3
--- NOTE | 2022-02-02 18:05 | EDPHYS ---
Physician Documentation [facility] Name: Rigo Gonzalez Age: 66 yrs Sex: Male : 1955 Arrival Date: 02/02/2022 Time: 14:52 Bed DIS6 Private MD: Dilan Martino ED Physician Miguel Bennett HPI: 02/02 18:02 This 66 yrs old Male presents to ER via Ambulatory with complaints of kb Breathing Difficulty, Covid+. 18:02 The patient has not recently seen a physician. kb 18:03 The patient or guardian reports cough, that is intermittent, described as moderate, kb difficulty breathing, flu symptoms. Onset: The symptoms/episode began/occurred 4 day(s) ago. Severity of symptoms: At their worst the symptoms were moderate, in the emergency department the symptoms are unchanged. Modifying factors: The symptoms are alleviated by nothing, the symptoms are aggravated by nothing. Associated signs and symptoms: Pertinent positives: fever, rhinorrhea, Pertinent negatives: chest pain, diarrhea, ear ache, nausea, sore throat, vomiting. The patient has not experienced similar symptoms in the past. Pt reports cough, congestion, fever, malaise and difficulty breathing that started 4 days ago. Was recently on a cruise and tested positive for covid at home this morning. Historical: - Allergies: 15:15 No Known Allergies; kb3 - PMHx: 15:15 Diabetes - NIDDM; Hypertension; Hypothyroidism; neuropathy; Vertigo; kb3 - PSHx: 15:15 None; kb3 - Immunization history:: Adult Immunizations up to date, Client reports receiving the 2nd dose of the Covid vaccine, Last tetanus immunization: unknown. - Social history:: Smoking status: Patient denies any tobacco usage or history of. ROS: 18:03 Abdomen/GI: Negative for abdominal pain, nausea, vomiting, diarrhea, and constipation. kb 18:03 Constitutional: Positive for body aches, chills, fatigue, fever, malaise. 18:03 Eyes: Positive for matting, redness. 18:03 ENT: Positive for rhinorrhea, sinus congestion. 18:03 Respiratory: Positive for cough, shortness of breath. 18:03 All other systems are negative. Exam: 18:02 Constitutional: This is a well developed, well nourished patient who is awake, alert, kb and in no acute distress. Head/Face: Normocephalic, atraumatic. ENT: Moist Mucous membranes Cardiovascular: Regular rate and rhythm with a normal S1 and S2. No gallops, murmurs, or rubs. No pulse deficits. Respiratory: Respirations even and unlabored. No increased work of breathing. Talking in full sentences Abdomen/GI: Soft, non-tender. No distention Skin: Warm, dry with normal turgor. Normal color. MS/ Extremity: Pulses equal, no cyanosis. Neurovascular intact. Full, normal range of motion. Neuro: Awake and alert, GCS 15, oriented to person, place, time, and situation. Moves all extremities. Normal gait. 18:02 Eyes: Periorbital structures: appear normal, Pupils: equal, round, and reactive to light and accomodation, Extraocular movements: intact throughout, Conjunctiva: exudate, in the left eye, injected, in the left eye. Vital Signs: 15:14 BP 141 / 77; Pulse 88; Resp 20; Temp 99.1; Pulse Ox 98% ; Weight 122.47 kg; Height 6 kb3 ft. 2 in. (187.96 cm); Pain 5/10; 16:49 BP 123 / 62; Pulse 84; Resp 20; Temp 98.2; Pulse Ox 98% on R/A; em6 18:07 BP 135 / 74; Pulse 82; Resp 18; Pulse Ox 98% on R/A; em6 15:14 Body Mass Index 34.67 (122.47 kg, 187.96 cm) kb3 MDM: 15:20 Patient medically screened. kb 16:53 ED course: Pt requests a covid test here because he wants to confirm this is covid. kb Also requests steroids and antibiotics because it worked for his children. I had a long conversation about covid being a virus and that steroids and antibiotics were not recommended unless there was an oxygen requirement. Pt and family still adamant that he receive zithromax and steroids. . 18:02 Data reviewed: vital signs, nurses notes. Data interpreted: Pulse oximetry: on room air kb is 98 %. Interpretation: normal. Counseling: I had a detailed discussion with the patient and/or guardian regarding: the historical points, exam findings, and any diagnostic results supporting the discharge/admit diagnosis, lab results, radiology results, the need for outpatient follow up, a family practitioner, to return to the emergency department if symptoms worsen or persist or if there are any questions or concerns that arise at home. 02/02 16:44 Order name: COVID-19/FLU A+B; Complete Time: 18:02 kb 02/02 15:21 Order name: Chest Pa And Lat (2 Views) XRAY; Complete Time: 15:48 kb 02/02 15:21 Order name: CT Head Brain wo Cont; Complete Time: 15:48 kb 02/02 16:29 Order name: Misc. Order: get list of home meds please; Complete Time: 16:42 kb Administered Medications: No medications were administered Disposition: 18:57 Co-signature as Attending Physician, Miguel Bennett MD. rn Disposition Summary: 02/02/22 18:04 Discharge Ordered Location: Home kb Condition: Stable kb Diagnosis - SARS-associated coronavirus as the cause of diseases classified elsewhere kb - Unspecified conjunctivitis kb Followup: kb - With: Emergency Department - When: As needed - Reason: Worsening of condition Followup: kb - With: Private Physician - When: 2 - 3 days - Reason: Recheck today's complaints, Continuance of care, Re-evaluation by your physician Discharge Instructions: - Discharge Summary Sheet kb - COVID-19 kb - Viral Illness, Adult kb Forms: - Medication Reconciliation Form kb - Thank You Letter kb - Antibiotic Education kb - Prescription Opioid Use kb Prescriptions: - Prednisone 20 mg Oral Tablet - take 1 tablet by ORAL route once daily for 5 days; 5 tablet; Refills: 0, kb Product Selection Permitted - Vigamox 0.5 % Ophthalmic Drops - instill 1 drop by OPHTHALMIC route every 8 hours for 7 days; 5 milliliter; kb Refills: 0, Product Selection Permitted - Tessalon Perles 100 mg Oral Capsule - take 1 capsule by ORAL route every 8 hours As needed; 15 capsule; Refills: 0, kb Product Selection Permitted - Zithromax 500 mg Oral Tablet - take 1 tablet by ORAL route once daily for 5 days; 5 tablet; Refills: 0, kb Product Selection Permitted Signatures: Dispatcher [employer] Génesis Montenegro, Miguel Wilson MD MD rn Martinez, Erika, RN RN em6 Inés Perdue RN RN kb3
[2022-02-02 18:22] VITALS: O2SAT 98
[2022-02-02 18:23] VITALS: TEMP 98.2
[2022-02-02 18:25] VITALS: BP 135/74
== END 2022-02-02 18:18 | disposition home or self-care (01) ==
LOC: ER 14:48
DX: U07.1 COVID-19 (principal); H10.9 Unspecified conjunctivitis; E11.9 Type 2 diabetes mellitus without complications; I10 Essential (primary) hypertension
CPT/HCPCS: 0240U; 70450; 71046; 99284

== ENCOUNTER 2023-01-01 13:51 | Observation (INO) | payer OTHER ==
--- OUTSIDE RECORDS SUMMARY | 2023-01-01 14:00 | XMS REPORT | Continuity of Care Document ---
:1955 Author Organization [facility] t Address [address] [place] [address] [place] [id number] Care Team Providers Name Role Phone Asked, No Pcp Primary Care Physician Unavailable JAVIER RAMAN Attending Clinician Unavailable JAVIER RAMAN Attending Clinician Unavailable Bo Schmidt Attending Clinician Doctor Unassigned, [place] Attending Clinician Unavailable Javier Raman MD Attending Clinician 1, [facility] Sleep Lab Bed Attending Clinician Unavailable Only, [facility] Test Attending Clinician Unavailable DAVIAN GARAY Attending Clinician Unavailable Jamie Rushing Attending Clinician Mark Anthony Jennings Attending Clinician SCHUYLER CASTELLANOS Admitting Clinician Unavailable Mark Anthony Jennings Admitting Clinician Payers Payer Name Policy Type Policy Number Effective Date Expiration Date S [facility] [place] [id number] 2020 00:00:00 [facility] [id number] 2021 [facility] 00:00:00 PPO Problems Condition Condition Condition Status Onset Resolution Last Treating Co mments Source Name Details Category Date Date Treatment Clinician Date Osteoarthr Osteoarthr Disease Active 2018- M ethodi itis of itis of [facility] left knee left knee [facility]:00: [facility] l [facility] disease [facility] due to due to 00 Center lipid rich lipid rich plaque plaque CAD CAD Disease Active [facility] ([facility] (coronary [facility]-28 [facility] artery artery 00:00: Medical disease) disease) 00 Center M51.26 - M51.26 - Diagnosis Active 2015-06-09 Memoria OTHER OTHER 2-15 07:40:00 l INTERVERTE INTERVERTE 00:01: Wilman spears BRAL DISC BRAL DISC 00 DISP DISP Active 04/18/2015 GIANFRANCO Dennison 724.02 - 724.02 - Diagnosis Active 2014-12-27 Memoria "SPIN "SPIN - 16:22:00 l STEN,LUMBR STEN,LUMBR 00:01: He tory " " Active 00 11/19/2014 GIANFRANCO Blair LUMBAR LUMBAR Diagnosis Active 2014-07-23 Me moria DDD, DDD, - 08:51:00 l SPINAL SPINAL 00:00: Juma STENOSIS, STENOSIS, 00 HERNIATED HERNIATED D D Active 07/15/2014 [facility] BACK PAIN BACK Diagnosis Active 2014-07-16 Memoria PAIN -14 10:33:00 l Active 00:00: Juma 07/15/2014 00 [facility] Degenerati Degenerat Problem Active 2021-12-09 Memoria on of ion of 07-07 23:11:35 l lumbar lumbar 00:00: Juma interverte interverte 00 bral disc bral disc (disorder) (disorder) Active 07/07/2014 Problem 12/09/2021 Data migrated from [employer] on 10/26/14. Anneliese Neuro, GIANFRANCO Dennison, GIANFRANCO Quintanilla Low back Low back Problem Active 2021-12-09 Memoria pain pain -06 23:11:35 l (disorder) (disorder) 00:00: Wilamn orellanaann Active 00 07/07/2014 Problem 12/09/2021 Data migrated from [employer] on 10/26/14. Anneliese Patel, GIANFRANCO Dennison, GIANFRANCO Quintanilla Lumbar Lumbar Problem Active 2021-12-09 Deejay lula radiculopa radiculopa 07-07 23:11:35 l thy thy 00:00: Juma (disorder) (disorder) 00 Active 07/07/2014 Problem 12/09/2021 Data migrated from [employer] on 10/26/14. Anneliese Patel, GIANFRANCO Dennison, GIANFRANCO Quintanilla Spinal Spinal Problem Active 2021-12-09 Deejay lula stenosis stenosis - 23:11:35 l of lumbar of lumbar 00:00: Herm kaylah region region 00 (disorder) (disorder) Active 07/07/2014 Problem 12/09/2021 Data migrated from [employer] on 10/26/14. Anneliese Patel, GIANFRANCO Dennison, GIANFRANCO Quintanilla Unsteady Unsteady Problem Active 2021-12-09 Memoria gait gait 07-07 23:11:35 l (finding) (finding) 00:00: Herm kaylah Active 00 07/07/2014 Problem 12/09/2021 Data migrated from [employer] on 10/26/14. Anneliese Patel GIANFRANCO Dennison, GIANFRANCO Quintanilla Final: Final: Problem 2014-07-29 Deejay lula 07/29/2014 00:10:36 l [facility] Arthritis Arthritis Problem Resolve 2021-12-09 Memoria (disorder) (disorder) d 23:11:35 l Resolved Juma Problem 12/09/2021 Anneliese Patel,[facility], GIANFRANCO Dennison, GIANFRANCO Quintanilla LUMB/LUMBO LUMB/LUMB Diagnosis Active 2014-07-23 Memoria SAC DISC OSAC DISC 08:51:00 l DEGEN DEGEN Juma Active [facility] SPIN SPIN Diagnosis Active 2014-07-23 Mem oria STEN,LUMBR STEN,LUMBR 08:51:00 l WO ARACELI WO ARACELI mahmood Active [facility] LUMBAR LUMBAR Diagnosis Active 2014-07-23 M emoria DISC DISC 08:51:00 l DISPLACEME DISPLACEME Wilman BAR NT Active [facility] No known No known Disease Unive rs active active ity of problems problems [facility] Degenerati Degenerat Problem Active 2022-06-10 Memoria on of ion of 00:10:30 l interverte interverte Wilman spears bral disc bral disc (disorder) (disorder) Active Problem 06/10/2022 [facility] GIANFRANCO Dennison, GIANFRANCO Quintanilla,[facility] Diabetes Diabetes Problem Active 2022-06-10 Memoria mellitus mellitus 00:10:30 l (disorder) (disorder) He rmann Active Problem 06/10/2022 [facility], GIANFRANCO Dennison, GIANFRANCO Quintanilla,[facility] Foot-drop Foot-drop Problem Active 2022-06-10 Memoria (finding) (finding) 00:10:30 l Active Excello Problem 06/10/2022 [facility] Hypertensi Hypertens Problem Active 2022-06-10 Memoria ve dani 00:10:30 l disorder, disorder, Herm kaylah systemic systemic arterial arterial (disorder) (disorder) Active Problem 06/10/2022 [facility], GIANFRANCO Dennison, GIANFRANCO Quintanilla,[facility] Hypothyroi Hypothyro Problem Active 2022-06-10 Memoria dism idism 00:10:30 l (disorder) (disorder) He rmann Active Problem 06/10/2022 [facility], GIANFRANCO Dennison, GIANFRANCO Quintanilla,[facility] Morbid Morbid Problem Active 2022-06-10 [facility] obesity obesity 00:10:30 l (disorder) (disorder) He rmann Active Problem 06/10/2022 [facility] Obesity Obesity Problem Active 2022-06-10 Me moria (disorder) (disorder) 00:10:30 l Active Juma Problem 06/10/2022 [facility], GIANFRANCO Dennison, GIANFRANCO Quintanilla,[facility] Peripheral Periphera Problem Active 2022-06-10 Memoria nerve l nerve 00:10:30 l disease disease Juma (disorder) (disorder) Active Problem 06/10/2022 [facility] Respirator Respirator Disease Active [facility] Allergies, Adverse Reactions, Alerts Allergy Allergy Status Severity Reaction(s) Onset Inactive Treating Comm ents Source Name Type Date Date Clinician NO KNOWN Drug Active Univers ALLERGIE Class ity of S [facility] No Known No Known Active Memori a Medicati Medicati l on on Excello Allergie Allergie s s Social History Social Habit Start Date Stop Date Quantity Comments Source History SDOH [facility] Alcohol Std Drinks Hospit al History SDOH [facility] Sexual orientation Method [facility] Hospital Exposure to 2021-09-24 2021-10-04 Not sure University SARS-CoV-2 (event) 00:00:00 13:13:00 [facility] History SDOH 2018-12-16 2018-12-16 1 [facility] Alcohol Frequency 00:00:00 00:00:00 Hospita l History of Social 2018-12-16 2018-12-[address] function 00:00:00 00:00:00 Hospital Tobacco use and 2017-11-20 2017-11-[address] [facility] exposure 00:00:00 00:00:00 [facility] Alcohol intake 2017-11-20 2017-11-[address] [facility] 00:[facility]:00 00:00:00 non-drinker of Medical nter alcohol (finding) Sex Assigned At [address] [facility] 00:00:00 00:00:00 [facility] Smoking Status Start Date Stop Date Source Tobacco smoking consumption [facility] Tobacco smoking status [facility] Medications Ordered Filled Start Stop Current Ordering Indication Dosage Frequency Signature Comments Components Source Medication Medication Date Date Medication? Clinician (SIG) Name Name No known No No known Unive rs medications 8- medication it y of 13:39: [address] No known No No known Unive rs medications 8- medication it y of 13:39: [address] No known No No known Unive rs medications 8-03 medication it y of 13:39: [address] No known No No known Unive rs medications 8- medication it y of 13:39: [address] No known No No known Unive rs medications 8-03 medication it y of 13:39: [address] No known No No known Unive rs medications 8-03 medication it y of 13:39: s [address] atorvastati Yes TAKE 1 Deejay lula [...] 7-06 TABLET BY l oral 18:13: MOUTH Juma enteric 00 EVERY DAY coated tablet meclizine Yes TAKE 1 Memori a 25 mg oral 7-06 TABLET BY l tablet 18:13: MOUTH Excello 00 THREE TIMES A DAY NEEDED Farxiga 5 Yes TAKE 1 Memori a mg oral 7-06 TABLET BY l tablet 18:13: MOUTH Juma 00 EVERY DAY atorvastati Yes TAKE 1 Deejay lula n 80 mg 7-06 TABLET BY l oral tablet 18:13: MOUTH Rhiannon nn 00 EVERYDAY AT BEDTIME BuPROPion Yes TAKE 1 Memori a (Eqv-Wellbu 7-06 TABLET BY l brooke SR) 18:13: MOUTH Excello 150 mg/12 00 EVERY DAY hours oral tablet, extended release niacin 500 Yes TAKE 1 Memor ia mg oral 7-06 TABLET BY l tablet, 18:13: MOUTH Excello extended 00 EVERY DAY release pantoprazol Yes TAKE 1 Deejay lula e 40 mg 7-06 TABLET BY l oral 18:13: MOUTH Excello enteric 00 EVERY DAY coated tablet meclizine Yes TAKE 1 Memori a 25 mg oral 7-06 TABLET BY l tablet 18:13: MOUTH Excello 00 THREE TIMES A DAY NEEDED Farxiga 5 Yes TAKE 1 Memori a mg oral 7-06 TABLET BY l tablet 18:13: MOUTH Juma 00 EVERY DAY aspirin 81 0 Yes 81 mg = 1 Me moria mg oral 7-06 cap, PO, l capsule 18:12: Daily, 0 Flex n 00 Refill(s) aspirin 81 Yes 81 mg = 1 Me moria mg oral 7-06 cap, PO, l capsule 18:12: Daily, 0 Flex n Refill(s) sertraline Yes 100 mg = 1 M emoria 100 mg oral 7-06 tab, PO, l tablet 18:11: Daily, Excello 00 HALF A TAB DAILY, 0 Refill(s) Fish Oil 0 Yes PO, 0 Memoria 7-06 Refill(s) l 18:11: Juma 00 Vitamin D3 Yes 0 Memoria 7-06 Refill(s) l 18:11: sertraline Yes 100 mg = 1 M emoria 100 mg oral 7-06 tab, PO, l tablet 18:11: Daily, Excello 00 HALF A TAB DAILY, 0 Refill(s) Fish Oil 0 Yes PO, 0 Memoria 7-06 Refill(s) l 18:11: Vitamin D3 Yes 0 Memoria 7-06 Refill(s) l 18:11: Excello 00 prazosin 1 Yes 1 mg = 1 Mem oria mg oral 7-06 cap, PO, l capsule 18:10: Daily, 0 Flex n Refill(s) prazosin 1 Yes 1 mg = 1 Mem oria mg oral 7-06 cap, PO, l capsule 18:10: Daily, 0 Flex n Refill(s) clonazePAM Yes 2 mg = 1 Mem oria 2 mg oral 7-06 tab, PO, l tablet 18:05: PRN, 0 Juma 00 Refill(s) clonazePAM Yes 2 mg = 1 Mem oria 2 mg oral 7-06 tab, PO, l tablet 18:05: PRN, 0 Excello 00 Refill(s) atorvastati 2019-0 Yes 80 mg, PO, Memoria n 9-10 Daily, 0 l 16:26: Refill(s) glimepiride 2019-0 Yes 0.5 mg, Mem oria 9-10 PO, Daily, l 16:26: 0 Excello 00 Refill(s) Aspirin 2019-0 Yes 325 mg, Memoria 9-10 PO, Daily, l 16:26: 0 Refill(s) metoprolol 2020-0 Yes 25 mg, PO, M emoria tartrate 9-10 BID, 0 l 16:26: Refill(s) Fenofibrate 2020-0 Yes 160 mg, Mem oria 9-10 PO, Daily, l 16:26: 0 Refill(s) Buprenorphi 2020-0 Yes 150 mg, Mem oria ne 9-10 PO, Daily, l 16:26: 0 Refill(s) 0.25 MG, 2020-0 Yes SUB-Q, Memoria 0.5 MG Dose 9-10 qWeek, 0 l 1.5 ML 16:26: Refill(s) Flex n semaglutide 00 1.34 MG/ML Pen Injector [Ozempic] atorvastati 2020-0 Yes 80 mg, PO, Memoria n 9-10 Daily, 0 l 16:26: Refill(s) glimepiride 2020-0 Yes 0.5 mg, Mem oria 9-10 PO, Daily, l 16:26: 0 Refill(s) fenofibrate 2020-0 Yes 160 mg, Mem oria 9-10 PO, Daily, l 16:26: 0 Refill(s) Ozempic 2020-0 Yes SUB-Q, Memoria (0.25 mg or 9-10 qWeek, 0 l 0.5 mg 16:26: Refill(s) Flex n dose) 2 00 mg/1.5 mL subcutaneou s solution atorvastati 2020-0 Yes 80 mg, PO, Memoria n 9-10 Daily, 0 l 16:26: Refill(s) glimepiride 2020-0 Yes 0.5 mg, Mem oria 9-10 PO, Daily, l 16:26: 0 Refill(s) Aspirin 2020-0 Yes 325 mg, Memoria 9-10 PO, Daily, l 16:26: 0 Refill(s) Fenofibrate 2020-0 Yes 160 mg, Mem oria 9-10 PO, Daily, l 16:26: 0 Refill(s) Buprenorphi 2020-0 Yes 150 mg, Mem oria ne 9-10 PO, Daily, l 16:26: 0 Refill(s) 0.25 MG, 2020-0 Yes SUB-Q, Memoria 0.5 MG Dose 9-10 qWeek, 0 l 1.5 ML 16:26: Refill(s) Flex mahmood semaglutide 00 1.34 MG/ML Pen Injector [Ozempic] atorvastati 2020-0 Yes 80 mg, PO, Memoria n 9-10 Daily, 0 l 16:26: Refill(s) glimepiride 2020-0 Yes 0.5 mg, Mem oria 9-10 PO, Daily, l 16:26: 0 Refill(s) metoprolol 2020-0 Yes 25 mg, PO, M emoria tartrate 9-10 BID, 0 l 16:26: Refill(s) fenofibrate 2019-0 Yes 160 mg, Mem [...] MG 12:10: daily. Hospita tablet 09 l metFORMIN 2018-03 Yes 1000mg Q.5D Take 1,000 [...] 12:10: mouth Hospi ta tablet 09 daily. l metoprolol 2018-03 Yes 25mg Q.5D Take [...] 12:10: mouth Hospi ta tablet 09 daily. l fenofibrate Yes 160mg QD Take [address] (TRIGLIDE,L 9-19 mg by [facility] OFIBRA) 160 10:18: mouth Medic al MG tablet 29 daily. [place] lisinopril Yes 10mg QD Take [address] (PRINIVIL,Z 9-19 by mouth Luke s ESTRIL) 10 10:18: daily. Medic al MG tablet 29 [place] glimepiride Yes 2mg Q.5D Take [address] (AMARYL) 2 9-19 by mouth 2 Johny es MG tablet 10:18: (two) Medical 29 times Center daily. clonazePAM Yes .5mg QD Take 0.[address] [facility] [facility] (KLONOPIN) 9-19 mg by [facility] 0.5 MG 10:18: mouth Medical tablet 29 nightly. [place] aspirin 81 Yes 81mg QD Take [address] MG EC 9-19 by mouth [facility] tablet 10:18: daily. Medical 29 Center multivitami Yes 1{tbl} QD Take [address] [facility] per 9-19 tablet by [facility] tablet 10:18: mouth Medical 29 daily. [place] metFORMIN Yes 500mg Take [address] (GLUCOPHAGE 9-19 mg by [facility] ) 500 MG 10:18: mouth 2 Medica l tablet 29 (two) Center times daily with breakfast and dinner. levothyroxi Yes 175ug Take [address] ne 9-19 mcg by [facility]ukes (SYNTHROID, 10:18: mouth Medic al LEVOTHROID) 29 Every Center 175 MCG morning on tablet an empty stomach. levothyroxi 2017- Yes 175ug Take [address] ne 9-19 mcg by [facility]ukes (SYNTHROID, 10:18: mouth Medic al LEVOTHROID) 29 Every Center 175 MCG morning on tablet an empty stomach. fenofibrate Yes 160mg QD Take [address] (TRIGLIDE,L 9-19 mg by [facility] OFIBRA) 160 10:18: mouth Medic al MG tablet 29 daily. Center lisinopril Yes 10mg QD Take [address] (PRINIVIL,Z 9-19 by mouth Luke s ESTRIL) 10 10:18: daily. Medic al MG tablet 29 Center glimepiride Yes 2mg Q.5D Take [address] (AMARYL) 2 -19 by mouth 2 Johny es MG tablet 10:18: (two) Medical 29 times Center daily. clonazePAM Yes .5mg QD Take 0.[address] (KLONOPIN) 9-19 mg by [facility] 0.5 MG 10:18: mouth Medical tablet 29 nightly. [place] aspirin 81 Yes 81mg QD Take [address] MG EC - by mouth [facility] tablet 10:18: daily. Medical 29 Center multivitami Yes 1{tbl} QD Take [address] n per 9-19 tablet by [facility] tablet 10:18: mouth Medical 29 daily. Center metFORMIN Yes 500mg Take [address] (GLUCOPHAGE 9-19 mg by [facility] ) 500 MG 10:18: mouth 2 Medica l tablet 29 (two) Center times daily with breakfast and dinner. Sodium No 1,000 mL, Memori a Chloride 5-23 1,000 l 0.154 20:58: ml/hr, Excello MEQ/ML 00 Infuse Injectable Over: 1 Solution hr, Route: IV, ONCE, Priority: STAT, Dosing Weight 122.727 kg, Start date: 07/24/14 15:58:00, Duration: 1 doses or times, Stop date: 07/24/14 15:58:00 Sodium 2014- No 1,000 mL, Memori a Chloride 5-23 [...] tab, 10 MG Oral 0 Tablet Refill(s) [[place] 10/325] senna 15 mg No 15 mg = 1 M emoria oral tablet 5-23 tab, PO, l 13:57: Daily, PRN Excello 00 for constipati on, # 30 tab, 0 Refill(s) Cyclobenzap No 10 mg = 1 M [...] tab, 10 MG Oral 0 Tablet Refill(s) [[place] 10/325] senna 15 mg No 15 mg = 1 M emoria oral tablet 5-23 tab, PO, l 13:57: Daily, PRN Juma 00 for constipati on, # 30 tab, 0 Refill(s) Miralax 2014- No Notes: Memoria 5-22 Dissolve l 23:00: in 8 oz of Excello 00 water or juice. (Same as: Miralax) Miralax No Notes: Memoria 5-22 Dissolve l 23:00: in 8 oz of Excello 00 water or juice. (Same as: Miralax) Lisinopril No Notes: Memor ia 5-22 (Same as: l 14:00: Prinivil, Excello 00 Zestril) Thyroxine No 175 Memoria 5-22 microgram, l 14:00: Route: PO, Juma 00 Drug form: TAB, Daily, Dosing Weight 122.727, kg, Start date: 07/23/14 9:00:00, Duration: 30 day, Stop date: 08/21/14 9:00:00 pneumococca No Notes: Deejay lula l capsular 5-22 (Same as: l polysacchar 14:00: Pneumovax H ermann neville type 1 00 23) vaccine / Refrigerat pneumococca e l capsular polysacchar [place] type 10A vaccine / pneumococca l capsular polysacchar neville type 11A vaccine / pneumococca l capsular polysacchar [place] type 12F vaccine / pneumococca l capsular polysacchar Lisinopril No Notes: Memor ia 5-22 (Same as: l 14:00: Prinivil, Excello 00 Zestril) Thyroxine No 175 Memoria 5-22 microgram, l 14:00: Route: PO, Excello 00 Drug form: TAB, Daily, Dosing Weight 122.727, kg, Start date: 07/23/14 9:00:00, Duration: 30 day, Stop date: 08/21/14 9:00:00 pneumococca No Notes: Deejay lula l [...] ia 5-22 Take 1 l 11:30: hour Excello 00 before or 2 hours after meal; Enteral feeds may interefere with the absorption of this medication . (Same as:Levothr oid, Synthroid) Synthroid No Notes: Memori a 5-22 Take 1 l 11:30: hour Juma 00 before or 2 hours after meal; Enteral feeds may interefere with the absorption of this medication . (Same as:Synthro id, Levothroid ) Levothroid No Notes: Memor ia 5-22 Take [...] Levothroid ) sennosides, No Notes: Deejay lula PENITENTIARY -22 (Same as: l 02:00: Senokot) Docusate No Notes: Memoria 5-22 (Same as: l 02:00: Colace) Excello (Do Not Crush) Famotidine No Notes: Memor ia 5-22 (Same as: l 02:00: Pepcid) Can be dilute in 5-10cc NS IVP: Slow IV push over at least 2 minutes. ceFAZolin No Notes: Memori a 5-22 (Same As: l 02:00: Ancef, Excello 00 Kefzol) MEDICATION WASTE Product Size: 1000 mg Product Wasted: ___ mg Lipitor No Notes: Memoria 5-22 (Same As: l 02:00: Lipitor) Lovastatin No 20 mg, Memor ia 5-22 Route: PO, l 02:00: Drug form: TAB, Bedtime, Dosing Weight 122.727, kg, Start date: 07/22/14 21:00:00, Duration: 30 day, Stop date: 08/20/14 21:00:00 Saline No Notes: Memoria Flush 0.9% 5-22 (Same as: l 02:00: BD Juma 00 Posiflush) sennosides, No Notes: Deejay lula PENITENTIARY -22 (Same as: l 02:00: Senokot) Docusate No Notes: Memoria 5-22 (Same as: l 02:00: Colace) Juma 00 (Do Not Crush) Famotidine No Notes: [...] Lipitor) Lovastatin No 20 mg, Memor ia 07-23 Route: PO, l 02:00: Drug form: TAB, Bedtime, Dosing Weight 122.727, kg, Start date: 07/22/14 21:00:00, Duration: 30 day, Stop date: 08/20/14 21:00:00 Saline No Notes: Memoria Flush 0.9% -22 (Same as: l 02:00: BD Excello 00 Posiflush) Metformin No Notes: Memori a hydrochlori 5-21 (Same as: l de 500 MG 22:00: Glucophage He rmann Oral Tablet 00 ) Take with meal Metformin No Notes: Memori a hydrochlori 5-21 (Same as: l de 500 MG 22:00: Glucophage He rmann Oral Tablet 00 ) Take with meal bupivacaine No Notes: Deejay lula liposome 5-21 (Same as: l 18:29: Exparel) NOT FOR IV use Postoperat dani analgesia: [...] (total dose = 30 mL [266 mg]) bupivacaine 2014-0 No Notes: Deejay lula liposome - (Same as: l 18:29: Exparel) 00 NOT FOR IV use Postoperat dani analgesia: [...] dose = 30 mL [266 mg]) Cefazolin 0 No 1 gm, Memoria 21 Route: l 18:00: IVPB, Juma ABXQ8H, Dosing Weight 122.727, kg, For < 70 kg, Start date: 07/22/14 13:00:00, Duration: 30 day, Stop date: 08/21/14 5:00:00 Cefazolin 2014-0 No 1 gm, Memoria 5-21 Route: l 18:00: IVPB, Juma 00 ABXQ8H, Dosing Weight 122.727, kg, For < 70 kg, Start date: 07/22/14 13:00:00, Duration: 30 day, Stop date: 08/21/14 5:00:00 Morphine 2014-0 No Notes: Memoria 5-21 Dose: l 17:30: Delay: Juma 00 Basal rate: 4hr limit: (Same as:Hailee[place]Ruddy ct) Morphine 0 No Notes: Memoria 5-21 Dose: l 17:30: Delay: Juma 00 Basal rate: 4hr limit: (Same as:Hailee-Ruddy ct) Valium 0 No Notes: Memoria 5-21 (Same as: l 17:05: Valium) Excello 00 Valium 0 No Notes: Memoria 5-21 (Same as: l 17:05: Valium) Excello Naloxone No Notes: Memoria 5-21 Same as l 17:04: Narcan Excello Naloxone No Notes: Memoria 5-21 Same as l 17:04: Narcan Excello Acetaminoph No Notes: Do M emoria en 325 MG / 5-21 not exceed l Hydrocodone 17:02: 4gm/day of Juma Bitartrate 00 acetaminop 10 MG Oral hen. (Same Tablet as: [place] 325/10) Ondansetron No Notes: Deejay lula 5-21 (Same as: l 17:02: Zofran) Excello 00 MEDICATION WASTE Product Size: 4 mg Product Wasted: __0_ mg Sodium No 1,000 mL, Memori a Chloride 5-21 Rate: 50 l 0.154 17:02: ml/hr, Juma MEQ/ML 00 Infuse Injectable over: 20 Solution hr, Route: IV, Dosing Weight 122.727 kg, Total Volume: 1,000, Start date: 07/22/14 12:02:00, Stop date: 08/21/14 12:01:00 Saline No Notes: Memoria Flush 0.9% 5-21 (Same as: l 17:02: BD Juma Posiflush) Acetaminoph No Notes: Do M emoria en 325 MG / 5-21 not exceed l Hydrocodone 17:02: 4gm/day of Juma Bitartrate 00 acetaminop 10 MG Oral hen. (Same Tablet as: [place] 325/10) Ondansetron No Notes: Deejay lula 5-21 (Same as: l 17:02: Zofran) Juma 00 MEDICATION WASTE Product Size: 4 mg Product Wasted: __0_ mg Sodium No 1,000 mL, Memori a Chloride 5-21 Rate: 50 l 0.154 17:02: ml/hr, Excello MEQ/ML 00 Infuse Injectable over: 20 Solution hr, Route: IV, Dosing Weight 122.727 kg, Total Volume: 1,000, Start date: 07/22/14 12:02:00, Stop date: 08/21/14 12:01:00 Saline 2014- No Notes: Memoria Flush 0.9% 5-21 (Same as: l 17:02: BD Posiflush) Clonazepam 2014-0 Yes PO, TID, 0 M emoria 5-19 Refill(s) l 20:39: clonazePAM 2014-0 Yes PO, TID, 0 M emoria 5-19 Refill(s) l 20:39: clonazePAM 2014-0 Yes PO, TID, 0 M emoria 5-19 Refill(s) l 20:39: Clonazepam 2014-0 Yes PO, TID, 0 M emoria 5-19 Refill(s) l 20:39: Diclofenac 2014-0 Yes PO, 0 Memori a 5-19 Refill(s) l 20:38: meclizine Yes 12.5 mg = Mem oria 12.5 mg 5-19 1 tab, PO, l oral tablet 20:38: TID, PRN rm 00 Dizziness, # 30 tab, 0 Refill(s) Diclofenac Yes PO, 0 Memori a 5-19 Refill(s) l 20:38: meclizine Yes 12.5 mg = Mem oria 12.5 mg 5-19 1 tab, PO, l oral tablet 20:38: TID, PRN rm 00 Dizziness, # 30 tab, 0 Refill(s) sildenafil Yes 100 mg = 1 M emoria 100 MG Oral 5-19 tab, PO, l Tablet 20:37: Daily, PRN Rhiannon nn [Viagra] 00 for erectile dysfunctio n, 0 Refill(s) Phentermine Yes 37.5 mg = M emoria Hydrochlori 5-19 1 cap, PO, l de 37.5 MG 20:37: Daily, 0 Her velasco Oral 00 Refill(s) Capsule sildenafil Yes 100 mg = 1 M [...] tab, PO, l tablet, 20:36: TID, 0 Excello disintegrat 00 Refill(s) ing Trazodone Yes 100 mg = 1 Me moria Hydrochlori 5-19 tab, PO, l de 100 MG 20:36: TID, # 270 He rmann Oral Tablet 00 tab, 0 Refill(s) clonazePAM Yes 0.5 mg = 1 M emoria 0.5 mg oral 5-19 tab, PO, l tablet, 20:36: TID, 0 Juma disintegrat 00 Refill(s) ing levothyroxi Yes 175 Memori a ne 175 mcg 5-19 microgram l (0.175 mg) 20:35: = 1 tab, Her velasco oral tablet 00 PO, Daily, # 90 tab, 0 Refill(s) levothyroxi Yes 175 Memori a ne 175 mcg 5-19 microgram l (0.175 mg) 20:35: = 1 tab, Her velasco oral tablet 00 PO, Daily, # 90 tab, 0 Refill(s) lovastatin Yes 20 mg = 1 Me moria 20 mg oral 5-19 tab, PO, l tablet 20:30: Bedtime, # Rhiannon nn 00 90 tab, 0 Refill(s) lovastatin Yes 20 mg = 1 Me moria 20 mg oral 5-19 tab, PO, l tablet 20:30: Bedtime, # Rhiannon nn 00 90 tab, 0 Refill(s) diclofenac Yes 75 mg = 1 Me moria sodium 75 5-19 tab, PO, l mg oral 20:29: Q12H, # 60 Herm kaylah enteric 00 tab, 0 coated, Refill(s) delayed-rel ease tablet diclofenac Yes 75 mg = 1 Me [...] 30 Flex n 00 tab, 0 Refill(s) Yes 1 tab, PO, Mem oria Plus Low 5-19 Daily, 0 l Iron oral 20:28: Refill(s) Her velasco tablet 00 metFORMIN Yes 500 mg = 1 Me moria 500 mg oral 5-19 tab, PO, l tablet 20:28: BID, # 30 Flex n 00 tab, 0 Refill(s) Metformin Yes 500 mg = 1 Me moria hydrochlori 5-19 tab, PO, l de 500 MG 20:28: BID, # 30 Her velasco Oral Tablet 00 tab, 0 Refill(s) lisinopril Yes 10 mg = 1 Me moria 10 mg oral 5-19 tab, PO, l tablet 20:27: Daily, # Excello 00 90 tab, 0 Refill(s) lisinopril Yes 10 mg = 1 Me moria 10 mg oral 5-19 tab, PO, l tablet 20:27: Daily, # Juma 00 90 tab, 0 Refill(s) Immunizations Ordered Filled Date Status Comments Source Immunization Name Immunization Name ILYN-[id number]-[id number]-19m 2020-06-13 Completed Isis STEPHENS-1273vaxMODERNA 00:00:00 AZKK-QcQ-0EQZGB-19m 2020-05-13 Completed Isis STEPHENS-1273vaxMODERLESLIE 00:00:00 SARS-COV-2 COVID-19 2020-05-08 Completed Unive rsity of MOD[facility]NA [facility] SARS-COV-2 COVID-19 2020-05-08 Completed Unive rsity of MODERNA VACCINE 00:00:00 [facility] SARS-COV-2 COVID-19 2020-05-08 Completed Unive rsity of MODERNA VACCINE 00:00:00 [facility] SARS-COV-2 COVID-19 2020-05-08 Completed Unive rsity of MODERNA VACCINE 00:00:00 [facility] SARS-COV-2 COVID-19 2020-05-08 Completed Unive rsity of MODERNA VACCINE 00:00:00 [facility] SARS-COV-2 COVID-19 2020-05-08 Completed Unive rsity of MODERNA VACCINE 00:00:00 [facility] SARS-COV-2 COVID-19 2020-04-10 Completed Unive rsity of MODERNA VACCINE 00:00:00 [facility] SARS-COV-2 COVID-19 2020-04-10 Completed Unive rsity of MODERNA VACCINE 00:00:00 [facility] SARS-COV-2 COVID-19 2020-04-10 Completed Unive rsity of MODERNA VACCINE 00:00:00 [facility] SARS-COV-2 COVID-19 2020-04-10 Completed Unive rsity of MODERNA VACCINE 00:00:00 [facility] SARS-COV-2 COVID-19 2020-04-10 Completed Unive rsity of MODERNA VACCINE 00:00:00 [facility] SARS-COV-2 COVID-19 2020-04-10 Completed Unive rsity of MODERNA VACCINE 00:00:00 [facility] pneumococcal 2014-07-24 Completed [facility] 23-valent vaccine 19:24:00 GTGN-[id number]-[id number]-19m Unknown Completed Memor ial [facility] RNA-1273vaxMODERNA STVK-FjQ-3SQKXY-19m Unknown Completed Memor ial [facility] RNA-1273vaxMODERNA pneumococcal Unknown Completed [facility] 23-valent vaccine Vital Signs Vital Name Observation Time Observation Value Comments Source Systolic blood 2021-10-04 18:36:00 136 mm[Hg] Univer sity of pressure [facility] Diastolic blood 2021-10-04 18:36:00 80 mm[Hg] Unive rsity of pressure [facility] Heart rate 2021-10-04 18:36:00 79 /min [facility] Respiratory rate 2021-10-04 18:27:00 18 /min [facility] Body height 2021-10-04 18:27:00 182.9 cm [facility] Body weight 2021-10-04 18:27:00 124.603 kg [facility] BMI 2021-10-04 18:27:00 37.26 kg/m2 [facility] Oxygen saturation in 2021-10-04 18:27:00 97 /min [facility] Arterial blood by [facility] Pulse oximetry Branch Systolic (mm Hg) 2022-01-05 14:06:00 Deejay rial [facility] Diastolic (mm Hg) 2022-01-05 14:06:00 Mem [facility] Heart Rate 2022-01-05 14:06:00 [facility] Height 2022-01-05 14:06:00 6 [ft_i] [facility] Weight 2022-01-05 14:06:00 [facility] BMI Calculated 2022-01-05 14:06:00 [facility] Systolic (mm Hg) 2021-09-06 18:18:00 Deejay rial [facility] Diastolic (mm Hg) 2021-09-06 18:18:00 Mem [facility] Heart Rate 2021-09-06 18:18:00 [facility] Respitory Rate 2021-09-06 18:18:00 [facility] Height 2021-09-06 18:18:00 187.96 cm [facility] Weight 2021-09-06 18:18:00 [facility] BMI Calculated 2021-09-06 18:18:00 [facility] Systolic (mm Hg) 2020-12-29 20:52:00 Deejay rial [facility] Diastolic (mm Hg) 2020-12-29 20:52:00 Mem [facility] Heart Rate 2020-12-29 20:52:00 [facility] Respitory Rate 2020-12-29 20:52:00 [facility] Height 2020-12-29 20:52:00 187.96 cm [facility] Weight 2020-12-29 20:52:00 [facility] BMI Calculated 2020-12-29 20:52:00 [facility] Systolic (mm Hg) 2020-09-02 14:38:00 Deejay rial Juma Diastolic (mm Hg) 2020-09-02 14:38:00 Mem [facility] Heart Rate 2020-09-02 14:38:00 [facility] Respitory Rate 2020-09-02 14:38:00 [facility] Height 2020-09-02 14:38:00 185.42 cm [facility] Weight 2020-09-02 14:38:00 [facility] BMI Calculated 2020-09-02 14:38:00 [facility] Systolic (mm Hg) 2019-11-12 15:54:00 Deejay rial [facility] Diastolic (mm Hg) 2019-11-12 15:54:00 Mem orial [facility] Heart Rate 2019-11-12 15:54:00 [facility] Respitory Rate 2019-11-12 15:54:00 [facility] Temperature Oral (F) 2019-11-12 15:54:00 97.3 F [facility] Height 2019-11-12 15:54:00 187.96 cm [facility] Weight 2019-11-12 15:54:00 [facility] BMI Calculated 2019-11-12 15:54:00 [facility] Systolic (mm Hg) 2014-07-26 16:21:00 Deejay rial [facility] Diastolic (mm Hg) 2014-07-26 16:21:00 Mem o[facility] Heart Rate 2014-07-26 16:21:00 [facility] Respitory Rate 2014-07-26 16:21:00 [facility] Temperature Oral (F) 2014-07-26 16:21:00 98.4 F [facility] Heart Rate 2014-07-26 12:14:00 [facility] Temperature Oral (F) 2014-07-26 12:14:00 98.4 F [facility] Respitory Rate 2014-07-26 12:14:00 [facility] Systolic (mm Hg) 2014-07-26 10:12:00 Deejay rial [facility] Diastolic (mm Hg) 2014-07-26 10:12:00 Mem [facility] Temperature Oral (F) 2014-07-26 10:12:00 97.6 F [facility] Heart Rate 2014-07-26 10:12:00 [facility] Systolic (mm Hg) 2014-07-26 05:18:00 Deejay rial [facility] Diastolic (mm Hg) 2014-07-26 05:18:00 Mem orial [facility] Respitory Rate 2014-07-26 01:28:00 Mememilie al [facility] Weight 2014-07-22 14:50:00 [facility] BMI Calculated 2014-07-22 14:50:00 Mememilie al [facility] Height 2014-07-22 14:50:00 185.42 cm [facility] Juma Procedures Procedure Date / Time Performing Clinician Source Performed DME/SUPPLY JUSTIFICATION 2021-10-20 05:01:00 Doctor Unassigned, No [facility] SLEEP STUDY DATA REPORT 2021-10-12 05:01:00 Doctor Unassigned, N o [facility] Oral operation [facility] Care Planned Activity Planned Date Details Comments Source Future Scheduled 2022-12-29 [facility] Test 02:35:47 malignant neoplasm of colon (procedure) [code = 737903217] Future Scheduled 2022-12-29 [facility] Test 02:35:47 malignant neoplasm of colon (procedure) [code = 742027322] Future Scheduled 2022-12-29 [facility] Test 02:35:47 malignant neoplasm of colon (procedure) [code = 808022753] Future Scheduled 2022-12-29 COVID-19 [facility] (#[facility] 02:35:47 [code = COVID-19 VACCINE (#1)] Future Scheduled 2022-12-29 [facility] Test 02:35:47 malignant neoplasm of colon (procedure) [code = 696576802] Future Scheduled 2022-12-29 [facility] Test 02:35:47 malignant neoplasm of colon (procedure) [code = 941036904] Future Scheduled 2022-12-29 SHINGLES VACCINES (1 [facility] Test 02:35:47 of 2) [code = SHINGLES VACCINES (1 of 2)] Future Scheduled 2022-12-29 65+ [facility]AL [facility] Test 02:35:47 VACCINE (1 - PCV) [code = 65+ PNEUMOCOCCAL VACCINE (1 - PCV)] Future Scheduled 2022-12-29 INFLUENZA VACCINE (#1) [facility] Test 02:35:47 [code = INFLUENZA VACCINE (#1)] Future Scheduled 2022-01-21 HEPATITIS B VACCINES Met [facility] Test 13:23:30 (1 of 3 - 3-dose series) [code = HEPATITIS B VACCINES (1 of 3 - 3-dose series)] Future Scheduled 2022-01-21 COVID-19 VACCINE (#1) [facility] Test 13:23:30 [code = COVID-19 VACCINE (#1)] Future Scheduled 2022-01-21 COLONOSCOPY SCREENING [facility] Test 13:23:30 [code = COLONOSCOPY SCREENING] Future Scheduled 2022-01-21 SHINGLES VACCINES (1 Met [facility] Test 13:23:30 of 2) [code = SHINGLES VACCINES (1 of 2)] Future Scheduled 2022-01-21 65+ [facility]OCOCCAL [facility] Test 13:23:30 VACCINE (1 - PCV) [code = 65+ PNEUMOCOCCAL VACCINE (1 - PCV)] Future Scheduled 2022-01-21 INFLUENZA VACCINE Method [facility] Test 13:23:30 [code = INFLUENZA VACCINE] Encounters Start End Encounter Admission Attending Care Care Encounter Source Date/Time Date/Time Type Type Clinicians Facility Department ID 2022-07-11 2022-07-11 Outpatient R JAVIER RAMAN [facility] [id number] [facility] 15:00:00 15:00:00 JAVIER RAMAN [facility] 2022-06-07 2022-06-07 Ambulatory CLARK HORNER [id number] Memoria 18:15:00 18:15:00 Pre-Reg Neurology 11 l Caryn Dennison 2022-06-07 2022-06-07 Outpatient CLARK RODAS [id number] Memoria 13:15:00 13:15:00 11 jack Dennison 2022-06-07 2022-06-07 Outpatient AMADO Schmidt [facility] [id number] 13:15:00 13:15:00 Bo 11 Jose 2022-05-16 2022-05-16 Outpatient R JAVIER RAMAN [facility] [id number] Univers 14:30:00 14:30:00 JAVIER RAMAN [facility] 2022-05-04 2022-05-04 Ambulatory MHIE MNA [id number] Memoria 21:00:00 21:00:00 Pre-Reg Neurology 10 l Caryn Juma 2022-05-04 2022-05-04 Outpatient MHIE MHIE [id number] Memoria 15:00:00 15:00:00 10 l Juma 2022-05-04 2022-05-04 Outpatient MHIE MHIE [id number] Memoria 15:00:00 15:00:00 10 l Juma 2022-05-04 2022-05-04 Outpatient AMADO Schmidt ANNELIESE [id number] 15:00:00 15:00:00 Bo 10 Jose 2022-01-05 2022-01-06 Outpatient nullFlavo MNA [id number] Memoria 14:15:00 04:59:59 r Neurology 09 l Towner Juma 2022-01-05 2022-01-06 Outpatient nullFlavo MNA [id number] Memoria 14:15:00 04:59:59 r Neurology 09 l Towner Juma 2022-01-05 2022-01-05 Outpatient [id number] 09:15:00 23:59:59 Bo 09 Jose 2022-01-05 2022-01-05 Outpatient MHIE MHIE [id number] Memoria 09:15:00 09:15:00 09 jack Juma 2021-12-07 2021-12-07 Ambulatory nullFlavo MNA [id number] Memoria 20:45:00 20:45:00 Pre-Reg r Neurology 08 l Caryn Juma 2021-12-07 2021-12-07 Ambulatory nullFlavo MNA [id number] Memoria 20:45:00 20:45:00 Pre-Reg r Neurology 08 l Towner Juma 2021-12-07 2021-12-07 Outpatient CHERELLEIE TOMASZ [id number] Memoria 15:45:00 15:45:00 08 jack Dennison 2021-12-07 2021-12-07 Outpatient AMADO Schmidt [id number] 15:45:00 15:45:00 Bo 08 Jose 2021-10-20 2021-10-20 Orders Doctor NATALIA [id number] [id number] Univers 00:00:00 00:00:00 Only Unassigned, YARELI 350.1.13.10 ity of [place] [facility] 4.2.7.2.686 Ruddy as [phone] [address] 2021-10-19 2021-10-19 Telephone Lamine [facility] 1.2.840.114 [id number] Univers 00:00:00 00:00:00 Straveronical Phil DYE 350.1.13.10 ity of [place] [facility] [phone] [place] [id number] [facility] 2021-10-12 2021-10-12 Center Maker Hand 1, Adc Sleep Lab Bed [facility] 1. 2.840.114 [id number] Univers 20:00:00 22:30:00 Visit Javier Raman 350.1.13. 10 ity of [place] [phone] [facility] [address] 2021-10-12 2021-10-12 Outpatient R JAVIER RAMAN [facility] [id number] Univers 20:00:00 20:00:00 MATIAS RAMANHIL ity of [facility] 2021-10-12 2021-10-12 Orders Doctor FISHER 1.2.840.114 [id number] Univers 00:00:00 00:00:00 Only Unassigned, YARELI 350.1.13.10 ity of [place] [facility] 4.2.7.2.686 Ruddy as [phone] [address] 2021-10-10 2021-10-10 Laboratory Only, Adc Test [place] 1.2.840. 114 [id number] Univers 15:15:00 15:30:00 Only Javier Raman 350.1.13. 10 ity [facility] 4.2.7.2.686 [facility] [phone] [facility] [address] 2021-10-10 2021-10-10 Outpatient R MATIAS RAMANHIL [facility] [id number] Univers 15:15:00 15:15:00 ATAMATIAS YOUNGHIL ity [facility] 2021-10-04 2021-10-04 Outpatient R MATIAS RAMANHIL [facility] [id number] Univers 13:40:00 13:57:31 CALEB RAMANL ity [facility] 2021-10-04 2021-10-04 Outpatient R JAVIER RAMAN [facility] [id number] Univers 13:40:00 13:57:31 WILNERHECTOR, CALEBL ity [facility] 2021-10-04 2021-10-04 Office Lamine [facility] 1.2.728.143 [id number] Univers 13:40:00 13:57:31 Visit Matiasfljack Phil [facility]JIVARALBER [facility].1.13.10 [facility] 4.2.7.2.686 [facility] [phone] [address] 2021-10-04 2021-10-04 Outpatient R CALEB RAMANL [facility] [id number] Univers 13:40:00 13:40:00 JAVIER RAMAN ity [facility] 2021-09-12 2021-09-12 Orders Doctor FISHER 1.2.840.114 [id number] Univers 00:00:00 00:00:00 Only Unassigned, YARELI 350.1.13.10 ity of [facility] 4.2.7.2.686 [facility] [phone] [facility] [address] 2021-09-06 2021-09-07 Outpatient nullFlavo MNA [id number] Memoria 18:00:00 04:59:59 r Neurology 06 l Towner Juma 2021-09-06 2021-09-07 Outpatient nullFlavo MNA [id number] Memoria 18:00:00 04:59:59 r Neurology 06 l Caryn Dennison 2021-09-06 2021-09-06 [id number] 13:00:00 23:59:59 Bo Garcia 2021-09-06 2021-09-06 Outpatient CLARK RODAS [id number] Memoria 13:00:00 13:00:00 06 jack Dennison 2021-09-02 2021-09-02 Center Maker Hand 1, [facility] Sleep Lab Bed [facility] 1. 2.840.114 [id number] Univers 20:00:00 22:30:00 Visit Javier Raman 350.1.13. 10 ity of [place] 4.2.7.2.686 [facility] [id number] [facility] [address] 2021-09-02 2021-09-02 Outpatient R JAVIER RAMAN [facility] [id number] Univers 20:00:00 20:00:00 JAVIER RAMAN itadrianna [facility] 2021-09-02 2021-09-02 Orders Doctor NATALIA 1.2.840.114 [id number] Univers 00:00:00 00:00:00 Only Unassigned, YARELI 350.1.13.10 [facility] 4.2.7.2.686 Ruddy [phone] [facility] [address] 2021-08-31 2021-08-31 Laboratory Only, [facility] Test [facility] 1.2.840. 114 [id number] Univers 16:00:00 16:15:00 Only Javier Raman 350.1.13. 10 ity of [place] 4.2.7.2.686 [facility] [phone] [facility] [address] 2021-08-31 2021-08-31 Outpatient R JAVIER RAMAN [facility] [id number] Univers 16:00:00 16:00:00 JAVIER RAMAN itadrianna [facility] 2021-08-31 2021-08-31 Outpatient R JAVIER RAMAN [facility] [id number] Univers 16:00:00 16:00:00 JAVIER RAMAN itadrianna [facility] 2021-08-29 2021-08-29 Telephone Lamine [facility] 1.2.840.114 [id number] Univers 00:00:00 00:00:00 Strafljack DYE 350.1.13.10 ity of [place] [phone] [address] 2021-08-16 2021-08-16 Outpatient R CALEB RAMANL [facility] [id number] Univers 13:40:00 14:24:07 JAVIER RAMAN [facility] 2021-08-16 2021-08-16 Office Lamine [facility] 1.2.653.196 [id number] Univers 13:40:00 14:00:00 Visit [facility] Phil MENJIVARALBER 350.1.13.10 ity [facility] 4[place]2.7.2.[place] [phone] [address] 2021-08-16 2021-08-16 Outpatient R CALEB RAMANL [facility] [id number] Univers 13:40:00 13:40:00 JAVIER RAMAN adrianna [facility] 2021-08-16 2021-08-16 Orders Doctor FISHER 1.2.840.114 [id number] Univers 00:00:00 00:00:00 Only Unassigned, YARELI 350.1.13.10 ity of [facility] 4.2.7.2.686 Ruddy as [phone] [address] 2020-12-29 2020-12-30 Outpatient nullFlavo MNA [id number] Memoria 21:00:00 04:59:59 r Neurology 07 l Caryn Herediaann 2020-12-29 2020-12-30 Outpatient nullFlavo MNA [id number] Memoria 21:00:00 04:59:59 r Neurology 07 l Caryn Herediaann 2020-12-29 2020-12-29 Outpatient AMADO Schmidt [facility] [id number] 16:00:00 23:59:59 Bo 07 Jose 2020-12-29 2020-12-29 Outpatient MHIE IE [id number] Memoria 16:00:00 16:00:00 07 jack Dennison 2020-11-11 2020-11-11 Ambulatory nullFlavo MNA [id number] Memoria 19:30:00 19:30:00 Pre-Reg r Neurology 04 l Caryn Dennison 2020-11-11 2020-11-11 Ambulatory nullFlavo MNA [id number] Memoria 19:30:00 19:30:00 Pre-Reg r Neurology 04 l Caryn Dennison 2020-11-11 2020-11-11 Outpatient MHIE IE [id number] Memoria 14:30:00 14:30:00 04 jack Dennison 2020-11-11 2020-11-11 Outpatient CHERELLE SchmidtOHJOHANNA [facility] [id number] 14:30:00 14:30:00 Bo 04 Jose 2020-09-02 2020-09-03 Outpatient nullFlavo MNA [id number] Memoria 14:45:00 04:59:59 r Neurology 05 jack Dennison 2020-09-02 2020-09-03 Outpatient nullFlavo MNA [id number] Memoria 14:45:00 04:59:59 r Neurology 05 jack Dennison 2020-09-02 2020-09-02 Outpatient AMADO Schmidt [facility] [id number] 09:45:00 23:59:59 Bo Annabelle Garcia 2020-09-02 2020-09-02 Outpatient MHIE IE [id number] Memoria 09:45:00 09:45:00 05 jack Dennison 2019-11-12 2019-11-13 Outpatient nullFlavo MNA [id number] Memoria 16:45:00 04:59:59 r Neurology 03 jack Herediaann 2019-11-12 2019-11-13 Outpatient nullFlavo MNA [id number] Memoria 16:45:00 04:59:59 r Neurology 03 jack Herediaann 2019-11-12 2019-11-12 Outpatient Roxana [facility] [id number] 11:45:00 23:59:59 Bo Mor Garcia 2019-11-12 2019-11-12 Outpatient MHIE MHIE [id number] Memoria 11:45:00 11:45:00 03 jack Juma 2017-05-09 2017-05-09 Outpatient MHIE MHIE [id number] Memoria 15:15:00 15:15:00 02 jack Juma 2017-05-09 2017-05-09 Outpatient MHIE MHIE [id number] Memoria 15:15:00 15:15:00 02 jack Juma 2015-07-13 2015-07-13 Outpatient MHIE MHIE [id number] Memoria 15:45:00 15:45:00 01 jack Dennison 2015-07-13 2015-07-13 Outpatient MHIE MHIE [id number] Memoria 15:45:00 15:45:00 01 jack Dennison 2015-06-30 2015-07-01 Outpt Diag nullFlavo [facility] [id number] Memoria 15:52:00 04:59:00 Services r Outpatient 03 [facility] Flex timoteo Smyth 2015-06-30 2015-07-01 Outpt Diag nullFlavo [facility] [id number] Memoria 15:52:00 04:59:00 Services r Outpatient 03 Alden Merino Flex timoteo Smyth 2015-06-30 2015-06-30 Outpatient Rushing, [place] [id number] 10:52:00 23:59:00 Jamie Juares 2015-06-09 2015-06-10 Outpt Diag nullFlavo [facility] [id number] Memoria 12:23:00 04:59:00 Services r Outpatient 02 Imaging Jumakaylah Dennison 2015-06-09 2015-06-10 Outpt Diag nullFlavo [facility] [id number] Memoria 12:23:00 04:59:00 [facility] 2015-06-09 2015-06-09 Outpatient Rushing, [facility] [id number] 07:23:00 23:59:00 Jamie Cortez 2015-06-09 2015-06-09 Outpatient MHIE MHIE [id number] Memoria 10:45:00 10:45:00 00 [facility] 2015-06-09 2015-06-09 Outpatient IE IE [id number] Memoria 10:45:00 10:45:00 00 [facility] 2014-08-27 2014-08-28 Outpt Diag nullFlavo [facility] [id number] Memoria 15:29:00 04:59:00 Services r Outpatient 00 l Imaging [facility] 2014-08-27 2014-08-28 Outpt Diag nullFlavo [facility] [id number] Memoria 15:29:00 04:59:00 Services r Outpatient 00 l Imaging [facility] 2014-08-27 2014-08-27 Outpatient Dick, 2.16.840. 2.16.840.1. [id number] 10:29:00 23:59:00 Mark Anthony [id number] Josselin [id number] 2014-07-26 Inpatient [facility] [id number] Memoria 12:25:00 16:50:00 r [facility] 2014-07-22 2014-07-26 Inpatient [facility] [id number] Memoria 12:25:00 16:50:00 r [facility] 2014-07-22 2014-07-26 Outpatient Dick, 2.16.840. 2.16.840.1. [id number] 07:25:00 11:50:00 Mark Anthony [id number] Josselin [id number] Results Test [...] these patients. DONE AT: [facility] [address] [facility] [place], [place] [address] GLYCOSYLATED HEMOGLOBIN (HA1C)2018-11-24 16:22:00 [...] be considered for these patients. COMPREHENSIVE METABOLIC [id number] 15:28:00 Test Item Value Reference Range Interpretation [...] RATE (test code = GFR) mL/mi n/1.73 [id number] Range:Healthy Adults >90 mL/min/1.73 m2 For Chronic Kidney Disease: Stage II Mild Decrease i n GFR 60-90 Stage III Moderate Decrea se in GFR 30-59 St age IV Severe Decre ase in GFR 15-29 St age V Kidney Failur e <15 CREATININE (test code 1.04 mg/dL 0.55-1.30 [...] N TOTAL (test code = ALKP) PROTHROMBIN [id number] 14:57:00 Test Item Value Reference Range Interpretation Comments PROTHROMBIN TIME 11.6 secs 10.1-12.5 N PATIENT (test code = PTP) INTERNATIONAL NORMAL 1.03 <2.0 RECOMME NDED THERAPEUTIC RATIO (test code = RANGE FOR ORAL INR) ANTICOAGULANTTR EATMENT: CONDITION INRProphylaxis of venous thrombosis in 2 .0 - 3.0 high-risk medic al or surgical patientsTreatme nt of venous thrombos is 2.0 [...] BLOOD, PT every other day NTHROMBOPLASTIN TIME [id number] 14:57:00 Test Item Value Reference Range Interpretation Comments PTT ACTIVATED (test code = APTT) 27.6 secs 24.9-37.0 N IS PATIENT ON ANTICOAGULANTS ? YLIST ANTICOAGULANT/ANTI PLT MEDICATION : AspirinHas Lab been notified if Patient is on Heparin Drip? NOIf Yes, order CBC, OCCULT BLOOD, PT every other day NURINALYSIS [id number] 14:45:00 Test Item Value Reference Range Interpretation [...] = BACU) FEW /HPF NONE CBC W/AUTO [id number] 14:32:00 Test Item Value Reference Range Interpretation [...] % 0-0 N code = NRBC) POCT-GLUCOSE [id number] 16:02:00 Test Item Value Reference Range Interpretation Comments POC-GLUCOSE METER 91 mg/dL 70-110 TESTED AT [place] [address] ([employer]) (test code = [facility] 52749 1538) POCT-GLUCOSE [id number] 12:30:00 Test Item Value Reference Range Interpretation Comments POC-GLUCOSE METER 102 mg/dL 70-110 TESTED AT [place] [address] ([employer]) (test code = [facility] 1538) [address] RAD, CHEST, 1 VIEW, NON [id number] 12:12:00Reason for exam:->pl effusionShould this be performed [...] Chávez MDReport VerifiedDate/Time: 11/11/2017 12:12:58 Reading Location: [facility] Radiology Reading Room Electronicallysigned by: DON CÁHVEZ M.D. on 11/11/2017 12:12 PMPOCT-GLUCOSE [id number] 08:18:00 Test Item Value Reference Range Interpretation Comments POC-GLUCOSE METER 107 mg/dL 70-110 TESTED AT [facility] 67[facility] ([facility]) (test [facility] = [facility]38) [address] BASIC METABOLIC [id number] 05:29:00 Test Item Value Reference Range Interpretation [...] m DATA TO CALCULA TE ESTIMATED GFR. [id number] 05:28:00 Test Item Value Reference Range Interpretation [...] 0-0 (BEAKER) (test code = 413) POCT-GLUCOSE [id number] 21:21:00 Test Item Value Reference Range Interpretation Comments POC-GLUCOSE METER 157 mg/dL 70-110 H TESTED AT [place] [address] ([facility]) (test [facility] = [facility] 1538) [id number] POCT-GLUCOSE [id number] 17:05:00 Test Item Value Reference Range Interpretation Comments POC-GLUCOSE METER 104 mg/dL 70-110 TESTED AT [place] [address] ([facility]) (test code = [facility] 1538) [address] POCT-GLUCOSE [id number] 12:06:00 Test Item Value Reference Range Interpretation Comments POC-GLUCOSE METER 177 mg/dL 70-110 H TESTED AT [place] [address] ([facility]) (test code = [facility] [place] [facility] 1538) [id number] RAD, CHEST, 1 VIEW, NON [id number] 09:30:00Reason for exam:->pl effusionShould this be performed at the bedside?->YesFINAL REPORT INDICATION: pl effusion TECHNIQUE: Chest radiograph, single view, p ortable technique. FINDINGS / IMPRESSION: Patient is status post median sternotomy. Heart shadow is prominent but there is no pulmonary venous congestion or edema. No definite pleural effusion demonstrated. Right internal jugular line terminates in the low SVC. Signed: Tien Lara MDReport Verified Date/Time: 11/10/2017 09:30:24 Reading Location: [address] Ortho Consult Reading Room POCT-GLUCOSE [id number] 08:04:00 Test Item Value Reference Range Interpretation Comments POC-GLUCOSE METER 149 mg/dL 70-110 H TESTED AT [facility] 6720 ([facility]) (test code = JM Bañuelos [facility] 1538) [address] BASIC METABOLIC [id number] 05:39:00 Test Item Value Reference Range Interpretation [...] m DATA TO CALCULA TE ESTIMATED GFR. [id number] 05:37:00 Test Item Value Reference Range Interpretation [...] 0-0 (BEAKER) (test code = 413) POCT-GLUCOSE [id number] 21:37:00 Test Item Value Reference Range Interpretation Comments POC-GLUCOSE METER 188 mg/dL 70-110 H TESTED AT [place] [address] ([facility]) (test code = JM Bañuelos [facility] 1538) [address] POCT-GLUCOSE [id number] 17:48:00 Test Item Value Reference Range Interpretation Comments POC-GLUCOSE METER 157 mg/dL 70-110 H TESTED AT [place] [id number] ([facility]) (test code = [facility] Edda [facility] 1538) [address] RAD, ABDOMEN/KUB, 1 VIEW [id number] 14:04:00Reason for exam:->nauseaFINAL REPORT Developing, three images HISTORY: Abdominal pain COMPARISON: None IMPRESSION:Bowel gas pattern nonobstructive. Lung bases clear. Signed: Harika Hui MDReport Verified Date/Time: 11/09/2017 14:04:02 Reading Location: [facility] B1 C013Y CT Body Reading Room Electronicallysigned by: HARIKA HUI M.D. on 11/09/2017 02:04 PMPOCT-GLUCOSE [id number] 13:09:00 Test Item Value Reference Range Interpretation Comments POC-GLUCOSE METER 145 mg/dL 70-110 H TESTED AT [place] [address] ([facility]) (test code = JM Bañuelos [facility] 1538) [address] POCT-GLUCOSE [id number] 11:40:00 Test Item Value Reference Range Interpretation Comments POC-GLUCOSE METER 164 mg/dL 70-110 H TESTED AT [place] [address] ([facility]) (test code = JM Bañuelos [facility] 1538) [address] RAD, CHEST, 1 VIEW, NON [id number] 09:02:00Reason for exam:->pl effusionShould this be performed [...] line appears in good position. Signed: Tien Laraeport Verified Date/Time: 11/09/2017 09:02:58 Reading Location: [facility] B1 C013X Ortho Consult Reading Room -GLUCOSE [id number] 07:49:00 Test Item Value Reference Range Interpretation Comments POC-GLUCOSE METER 160 mg/dL 70-110 H TESTED AT [place] [address] ([facility]) (test code = JM Bañuelos [facility] 1538) [address] BASIC METABOLIC [id number] 07:00:00 Test Item Value Reference Range Interpretation [...] m DATA TO CALCULA TE ESTIMATED GFR. [id number] 06:32:00 Test Item Value Reference Range Interpretation [...] 0-0 (BEAKER) (test code = 413) POCT-GLUCOSE [id number] 21:35:00 Test Item Value Reference Range Interpretation Comments POC-GLUCOSE METER 196 mg/dL 70-110 H TESTED AT [facility] 6720 (BEAKER) (test code = JM TAM [place] 1538) [address] RAD, CHEST, 1 VIEW, NON [id number] 17:12:00Reason for exam:->s/p pericardial windowShould this be [...] at the cavoatrial junction. Signed: [facility]ien Lara [facility] Verified Date/Time: 11/08/2017 17:12:47 Reading Location: [address] Ultrasound Reading Room BLOOD GAS, [id number] 17:10:00 Test Item Value Reference Range Interpretation [...] code = 1819) 100.0 % BLOOD GAS, [id number] 16:48:00 Test Item Value Reference Range Interpretation [...] (test code = 1819) 32.0 % CALCIUM, [id number] 16:42:00 Test Item Value Reference Range Interpretation Comments CALCIUM IONIZED (BEAKER) (test 1.09 mmol/L 1.12-1.27 L code = 698) PH, BLOOD (BEAKER) (test code = 7.33 1810) GLUCOSE-STAT [id number] 16:41:00 Test Item Value Reference Range Interpretation Comments GLUCOSE RANDOM (BEAKER) (test code 103 mg/dL 70-110 = 652) POTASSIUM-STAT [id number] 16:41:00 Test Item Value Reference Range Interpretation Comments POTASSIUM (BEAKER) (test code = 4.5 meq/L 3.6-5.5 379) HGB/HCT (H&H) - STAT [id number] 16:41:00 Test Item Value Reference Range Interpretation Comments HEMOGLOBIN (BEAKER) (test code = 8.5 g/dL 13.0-16.8 L 410) HEMATOCRIT (BEAKER) (test code = 25.0 % 40.0-50.0 L 411) SODIUM NA-STAT [id number] 16:41:00 Test Item Value Reference Range Interpretation Comments SODIUM (BEAKER) (test code = 381) 132 meq/L 135-148 L BLOOD GAS, [id number] 15:07:00 Test Item Value Reference Range Interpretation [...] (test code = 1819) 100.0 % GLUCOSE-STAT [id number] 15:07:00 Test Item Value Reference Range Interpretation Comments GLUCOSE RANDOM (BEAKER) (test code 116 mg/dL 70-110 H = 652) HGB/HCT (H&H) - STAT [id number] 15:07:00 Test Item Value Reference Range Interpretation Comments HEMOGLOBIN (BEAKER) (test code = 9.2 g/dL 13.0-16.8 L 410) HEMATOCRIT (BEAKER) (test code = 27.0 % 40.0-50.0 L 411) SODIUM NA-STAT [id number] 15:07:00 Test Item Value Reference Range Interpretation Comments SODIUM (BEAKER) (test code = 381) 130 meq/L 135-148 L CALCIUM, [id number] 15:07:00 Test Item Value Reference Range Interpretation Comments CALCIUM IONIZED (BEAKER) (test 1.11 mmol/L 1.12-1.27 L code = 698) PH, BLOOD (BEAKER) (test code = 7.36 1810) POTASSIUM-STAT [id number] 15:06:00 Test Item Value Reference Range Interpretation Comments POTASSIUM (BEAKER) (test code = 4.6 meq/L 3.6-5.5 379) POCT-GLUCOSE [id number] 11:52:00 Test Item Value Reference Range Interpretation Comments POC-GLUCOSE METER 137 mg/dL 70-110 H TESTED AT [facility] 6720 [facility] (test code = JM Bañuelos [facility] 1538) [address] POCT-GLUCOSE [id number] 07:53:00 Test Item Value Reference Range Interpretation Comments POC-GLUCOSE METER 143 mg/dL 70-110 H TESTED AT [facility] 6720 ([facility] (test code = JM Bañuelos [place] 1538) [address] BASIC METABOLIC [id number] 02:49:00 Test Item Value Reference Range Interpretation [...] m DATA TO CALCULA TE ESTIMATED GFR. [id number] 02:40:00 Test Item Value Reference Range Interpretation Comments MAGNESIUM (BEAKER) (test code = 1.9 mg/dL 1.6-2.6 627) [id number] 02:28:00 Test Item Value Reference Range Interpretation [...] RED BLOOD CELLS 0 /100 WBC 0-0 (AKER) (test code = 413) POCT-GLUCOSE [id number] 22:01:00 Test Item Value Reference Range Interpretation Comments POC-GLUCOSE METER 258 mg/dL 70-110 H TESTED AT [place] [address] ([facility]) (test code = JM Bañuelos [facility] 1538) [address] POCT-GLUCOSE [id number] 17:46:00 Test Item Value Reference Range Interpretation Comments POC-GLUCOSE METER 189 mg/dL 70-110 H TESTED AT [place] [address] ([facility]) (test code = JM Bañuelos [facility] 1538) [address] POCT-GLUCOSE [id number] 16:58:00 Test Item Value Reference Range Interpretation Comments POC-GLUCOSE METER 218 mg/dL 70-110 H TESTED AT [place] [address] ([facility]) (test code = JM Bañuelos [place] 1538) [address] POCT-GLUCOSE [id number] 13:09:00 Test Item Value Reference Range Interpretation Comments POC-GLUCOSE METER 120 mg/dL 70-110 H TESTED AT [place] [address] ([facility]) (test code = JM Bañuelos [place] 1538) [address] POCT-GLUCOSE [id number] 13:01:00 Test Item Value Reference Range Interpretation Comments POC-GLUCOSE METER 138 mg/dL 70-110 H TESTED AT [facility] 67 ([facility]) (test code = [facility] Edda [facility] 1538) [address] RAD, CHEST, 1 VIEW, NON [id number] 09:47:00Reason for exam:->s/p CABG FINAL REPORT INDICATION: s/p CABG TECHNIQUE: Chest radiograph, single view, portable technique. FINDINGS / IMPRESSION: Evidence of coronary artery bypass surgery. No pulmonary edema, apical cap, or pneumothorax demonstrated. Right internal jugular line terminates at the cavoatrialjunction. In summary, no evidence of postoperative complication. Signed: Tien Lara MDReport Verified Date/Time: 11/07/2017 09:47:42 Reading Location: [facility] Reading Room POCT-GLUCOSE [id number] 08:48:00 Test Item Value Reference Range Interpretation Comments POC-GLUCOSE METER 165 mg/dL 70-110 H TESTED AT [place] [address] ([facility]) (test code = JM Bañuelos [facility] 1538) [address] BASIC METABOLIC [id number] 06:08:00 Test Item Value Reference Range Interpretation [...] m DATA TO CALCULA TE ESTIMATED GFR. [id number] 06:07:00 Test Item Value Reference Range Interpretation Comments MAGNESIUM (BEAKER) (test code = 2.1 mg/dL 1.6-2.6 627) POCT-GLUCOSE [id number] 21:41:00 Test Item Value Reference Range Interpretation Comments POC-GLUCOSE METER 170 mg/dL 70-110 H TESTED AT [facility] 6720 (BEAKER) (test code = JM TAM [place] 1538) [address] RAD, CHEST, 1 VIEW, NON [id number] 07:57:00Reason for exam:->s/p CABG FINAL REPORT Chest one view compared to November 05 Discussion: There is improved aeration of the lower lungs with resolution of opacity on the right and minimal residual ill-defined opacity in the left. Mild cardiac prominence. No gross effusion or pneumothorax. Right sided central line unchanged. Signed: Natalia Richards Verified Date/Time: 11/06/2017 07:57:11 Reading Location: [facility] Radiology Reading Room POCT-GLUCOSE [id number] 07:07:00 Test Item Value Reference Range Interpretation Comments POC-GLUCOSE METER 131 mg/dL 70-110 H TESTED AT [facility] 6720 ([facility] (test code = JM Bañuelos [facility] 1538) [address] BASIC METABOLIC [id number] 06:01:00 Test Item Value Reference Range Interpretation [...] DATA TO CALCULA TE ESTIMATED GFR. POCT-GLUCOSE [id number] 21:29:00 Test Item Value Reference Range Interpretation Comments POC-GLUCOSE METER 96 mg/dL 70-110 TESTED AT [place] [address] ([facility]) (test code = JM Bañuelos [facility] [address] 1538) POCT-GLUCOSE [id number] 16:25:00 Test Item Value Reference Range Interpretation Comments POC-GLUCOSE METER 226 mg/dL 70-110 H TESTED AT [place] [address] ([facility]) (test code = JM Bañuelos [facility] 1538) [address] POCT-GLUCOSE [id number] 12:13:00 Test Item Value Reference Range Interpretation Comments POC-GLUCOSE METER 149 mg/dL 70-110 H TESTED AT [place] [address] ([facility]) (test code = JM Bañuelos [facility] 1538) [address] RAD, CHEST, 1 VIEW, NON [id number] 08:21:00Reason for exam:->s/p CABG FINAL REPORT TECHNIQUE: [...] Portilloeport Verified Date/Time: 11/05/2017 08:21:37 Reading Location: [facility] Radiology Reading Room -GLUCOSE [id number] 07:37:00 Test Item Value Reference Range Interpretation Comments POC-GLUCOSE METER 132 mg/dL 70-110 H TESTED AT [facility] 6720 ([facility]) (test code = JM Bañuelos [facility] 1538) [address] BASIC METABOLIC [id number] 04:42:00 Test Item Value Reference Range Interpretation [...] ESTIMATED GFR. CBC W/PLT COUNT & AUTO [id number] 04:14:00 Test Item Value Reference Range Interpretation [...] PERCENT (BEAKER) (test code = 2801) POCT-GLUCOSE [id number] 21:07:00 Test Item Value Reference Range Interpretation Comments POC-GLUCOSE METER 150 mg/dL 70-110 H TESTED AT [place] [address] ([facility]) (test code = [facility] 1538) [address] POCT-GLUCOSE [id number] 17:19:00 Test Item Value Reference Range Interpretation Comments POC-GLUCOSE METER 216 mg/dL 70-110 H TESTED AT [place] [address] ([facility]) (test code = [facility] 1538) [address] RAD, CHEST, 1 VIEW, NON [id number] 12:23:00Reason for exam:->CABGFINAL REPORT CHEST ONE VIEW [...] MDReport Verified Date/Time: 11/04/2017 12:23:52 Reading Location: [facility] Transitional Reading Room POCT-GLUCOSE [id number] 12:20:00 Test Item Value Reference Range Interpretation Comments POC-GLUCOSE METER 174 mg/dL 70-110 H TESTED AT [facility] 6720 (BEAKER) (test code = JM TAM [place] 1538) [address] BASIC METABOLIC [id number] 09:58:00 Test Item Value Reference Range Interpretation [...] TO CALCULA TE ESTIMATED GFR. BASIC METABOLIC [id number] 04:36:00 Test Item Value Reference Range Interpretation [...] ESTIMATED GFR. CBC W/PLT COUNT & AUTO [id number] 04:12:00 Test Item Value Reference Range Interpretation [...] (BEAKER) (test code = 2801) BASIC METABOLIC [id number] 00:25:00 Test Item Value Reference Range Interpretation [...] DATA TO CALCULA TE ESTIMATED GFR. POCT-GLUCOSE [id number] 21:20:00 Test Item Value Reference Range Interpretation Comments POC-GLUCOSE METER 138 mg/dL 70-110 H TESTED AT [facility] 6720 (BEAKER) (test code = JM TAM [place] 1538) [address] BASIC METABOLIC [id number] 20:36:00 Test Item Value Reference Range Interpretation [...] DATA TO CALCULA TE ESTIMATED GFR. POCT-GLUCOSE [id number] 17:41:00 Test Item Value Reference Range Interpretation Comments POC-GLUCOSE METER 221 mg/dL 70-110 H TESTED AT [facility] 6720 (BEAKER) (test code = JM TAM [place] 1538) [address] BASIC METABOLIC [id number] 15:35:00 Test Item Value Reference Range Interpretation [...] DATA TO CALCULA TE ESTIMATED GFR. PUL [facility], [id number] 15:16:00FINAL REPORT PROCEDURE: V/Q LUNG SCAN CPT CODE: 05530 INDICATION: Dyspnea, cardiac origin suspected, respiratory insufficiency, [...] Cid MDReport Verified Date/Time: 11/03/2017 15:16:20 POCT-GLUCOSE [id number] 12:26:00 Test Item Value Reference Range Interpretation Comments POC-GLUCOSE METER 173 mg/dL 70-110 H TESTED AT [place] [address] ([facility]) (test code = [facility] 1538) [address] BASIC METABOLIC [id number] 11:10:00 Test Item Value Reference Range Interpretation [...] 358) GLUCOSE RANDOM 246 mg/dL 70-105 H (BEAKER) (test code = 652) CALCIUM (BEAKER) 8.4 mg/dL 8.4-10.2 (test code = 697) EGFR (BEAKER) (test mL/min/1.73 INSUFFIC IENT CLINICAL code = 1092) sq m DATA TO CALCULA TE ESTIMATED GFR. POCT-GLUCOSE [id number] 08:46:00 Test Item Value Reference Range Interpretation Comments POC-GLUCOSE METER 146 mg/dL 70-110 H TESTED AT [place] [address] ([facility] (test code = [facility] 1538) [address] OSMOLALITY, [id number] 08:04:00 Test Item Value Reference Range Interpretation Comments OSMOLALITY, SERUM (BEAKER) (test 270 mOsm/kg 275-295 L code = 615) OSMOLALITY, [id number] 08:04:00 Test Item Value Reference Range Interpretation Comments OSMOLALITY URINE (BEAKER) (test 290 mOsm/kg 40-1400 code = 614) CBC W/PLT COUNT & AUTO [id number] 07:43:00 Test Item Value Reference Range Interpretation [...] Received comment: User comments: Slide comments:BASIC METABOLIC [id number] 06:27:00 Test Item Value Reference Range Interpretation [...] TO CALCULA TE ESTIMATED GFR. SODIUM, RANDOM [id number] 06:14:00 Test Item Value Reference Range Interpretation Comments SODIUM URINE (BEAKER) (test code = < meq/L 243) Reference Range: No NormalsTSH/FREE T4 IF [id number] 05:11:00 Test Item Value Reference Range Interpretation Comments THYROID STIMULATING HORMONE 0.82 uIU/mL 0.35-4.94 (BEAKER) (test code = 772) BASIC METABOLIC [id number] 04:36:00 Test Item Value Reference Range Interpretation [...] TO CALCULA TE ESTIMATED GFR. BASIC METABOLIC [id number] 02:40:00 Test Item Value Reference Range Interpretation [...] TO CALCULA TE ESTIMATED GFR. BASIC METABOLIC [id number] 01:03:00 Test Item Value Reference Range Interpretation [...] TO CALCULA TE ESTIMATED GFR. BASIC METABOLIC [id number] 23:48:00 Test Item Value Reference Range Interpretation [...] DATA TO CALCULA TE ESTIMATED GFR. POCT-GLUCOSE [id number] 22:10:00 Test Item Value Reference Range Interpretation Comments POC-GLUCOSE METER 176 mg/dL 70-110 H TESTED AT [facility] 6720 (BEAKER) (test code = JM GALEANO 1538) [address] BASIC METABOLIC [id number] 21:04:00 Test Item Value Reference Range Interpretation [...] TO CALCULA TE ESTIMATED GFR. BASIC METABOLIC [id number] 19:10:00 Test Item Value Reference Range Interpretation [...] CALCULA TE ESTIMATED GFR. CT, BRAIN, WITHOUT [id number] 17:07:00Reason for exam:->acute hyponatremiaWhat is the patient's [...] MDReport Verified Date/Time: 11/02/2017 17:07:14 Reading Location: [address] Neuro Reading Room BASI METABOLIC [id number] 16:05:00 Test Item Value Reference Range Interpretation [...] ESTIMATED GFR. RAD, CHEST, 1 VIEW, NON [id number] 15:21:00Reason for exam:->cvlShould this be performed at [...] MDReport Verified Date/Time: 11/02/2017 15:21:03 Reading Location: [address] Transitional Reading Room BASI METABOLIC [id number] 13:40:00 Test Item Value Reference Range Interpretation [...] DATA TO CALCULA TE ESTIMATED GFR. OSMOLALITY, [id number] 12:56:00 Test Item Value Reference Range Interpretation Comments OSMOLALITY URINE (BEAKER) (test 283 mOsm/kg 40-1400 code = 614) URINALYSIS W/ [id number] 12:55:00 Test Item Value Reference Range Interpretation [...] code = 516) SOURCE(BEAKER) (test code = 2795) SODIUM, RANDOM [id number] 12:50:00 Test Item Value Reference Range Interpretation Comments SODIUM URINE (BEAKER) (test code = < meq/L 243) Reference Range: No NormalsSODIUM, RANDOM [id number] 12:50:00 Test Item Value Reference Range Interpretation Comments SODIUM URINE (BEAKER) (test code = < meq/L 243) Reference Range: No NormalsUREA NITROGEN, RANDOM [id number] 12:44:00 Test Item Value Reference Range Interpretation Comments UREA NITROGEN URINE (BEAKER) (test 446 mg/dL code = 538) Reference Range: No NormalsCHLORIDE, RANDOM [id number] 12:39:00 Test Item Value Reference Range Interpretation Comments CHLORIDE URINE (BEAKER) (test code = 23 meq/L 682) Reference Range: No [id number] 12:28:00 Test Item Value Reference Range Interpretation Comments CORTISOL, TOTAL (BEAKER) (test 18.6 ug/dL 3.7-19.4 code = 2755) BASIC METABOLIC [id number] 12:26:00 Test Item Value Reference Range Interpretation [...] DATA TO CALCULA TE ESTIMATED GFR. URIC [id number] 12:09:00 Test Item Value Reference Range Interpretation Comments URIC ACID (BEAKER) (test code = 8.2 mg/dL 2.6-7.2 H 773) BLOOD GAS, [id number] 09:56:00 Test Item Value Reference Range Interpretation [...] code = 1819) 90.0 % BASIC METABOLIC [id number] 09:34:00 Test Item Value Reference Range Interpretation [...] DATA TO CALCULA TE ESTIMATED GFR. POCT-GLUCOSE [id number] 08:43:00 Test Item Value Reference Range Interpretation Comments POC-GLUCOSE METER 174 mg/dL 70-110 H TESTED AT [facility] 6720 (BEAKER) (test code = JM Bañuelos [facility] 1538) [address] BASIC METABOLIC [id number] 08:12:00 Test Item Value Reference Range Interpretation [...] m DATA TO CALCULA TE ESTIMATED GFR. [id number] 07:59:00 Test Item Value Reference Range Interpretation [...] 0-0 (BEAKER) (test code = 413) POCT-GLUCOSE [id number] 20:48:00 Test Item Value Reference Range Interpretation Comments POC-GLUCOSE METER 240 mg/dL 70-110 H TESTED AT [facility] 67 (BEAKER) (test code = JM Edda [facility] 1538) [address] POCT-GLUCOSE [id number] 18:18:00 Test Item Value Reference Range Interpretation Comments POC-GLUCOSE METER 222 mg/dL 70-110 H TESTED AT [facility] 6720 [facility] 1538) [address] POCT-GLUCOSE [id number] 13:59:00 Test Item Value Reference Range Interpretation Comments POC-GLUCOSE METER 194 mg/dL 70-110 H TESTED AT [place] [address] ([facility] (test code = [facility] Edda [facility] 1538) [address] POCT-GLUCOSE [id number] 08:47:00 Test Item Value Reference Range Interpretation Comments POC-GLUCOSE METER 217 mg/dL 70-110 H TESTED AT [place] [address] ([facility] (test code = [facility] 1538) [address] BASIC METABOLIC [id number] 07:31:00 Test Item Value Reference Range Interpretation [...] m DATA TO CALCULA TE ESTIMATED GFR. [id number] 07:24:00 Test Item Value Reference Range Interpretation Comments PHOSPHORUS (BEAKER) (test code = 2.5 mg/dL 2.3-4.7 604) [id number] 07:24:00 Test Item Value Reference Range Interpretation [...] 0-0 (BEAKER) (test code = 413) POCT-GLUCOSE [id number] 05:40:00 Test Item Value Reference Range Interpretation Comments POC-GLUCOSE METER 222 mg/dL 70-110 H TESTED AT [facility] 6720 ([facility]) (test code = JM Bañuelos [facility] 1538) [address] RAD, CHEST, 1 VIEW, NON [id number] 04:55:00Reason for exam:->post CT removalFINAL REPORT CLINICAL INDICATION: Chest tube removal Comparison: 10/31/2017 Thecardiomediastinal contours are stable. The lung volumes remain low. Central pulmonary vascular prominence and bilateral parenchymal opacities are unchanged. Blunting of the left costophrenic sulcus mayreflect a small effusion. There is no pneumothorax. A left chest tube and right IJ CVC has been removed. Signed: Ivett Landoneport Verified Date/Time: 11/01/2017 04:55:17 Reading Location: [address] Reading Room POCT- GLUCOSE [id number] 23:11:00 Test Item Value Reference Range Interpretation Comments POC-GLUCOSE METER 249 mg/dL 70-110 H TESTED AT [place] [address] ([facility]) (test code = JM Bañuelos [facility] 1538) [address] POCT-GLUCOSE [id number] 19:49:00 Test Item Value Reference Range Interpretation Comments POC-GLUCOSE METER 190 mg/dL 70-110 H TESTED AT [place] [address] ([facility]) (test code = JM Bañuelos [facility] 1538) [address] POCT-GLUCOSE [id number] 11:30:00 Test Item Value Reference Range Interpretation Comments POC-GLUCOSE METER 206 mg/dL 70-110 H TESTED AT [place] [address] ([facility]) (test code = JM Bañuelos [facility] 1538) [address] POCT-GLUCOSE [id number] 07:19:00 Test Item Value Reference Range Interpretation Comments POC-GLUCOSE METER 107 mg/dL 70-110 TESTED AT [place] [address] ([facility]) (test code = JM Bañuelos [facility] 1538) [id number] POCT-GLUCOSE [id number] 06:02:00 Test Item Value Reference Range Interpretation Comments POC-GLUCOSE METER 88 mg/dL 70-110 TESTED AT [place] [address] ([facility]) (test code = LightSquaredELROY Bañuelos [facility] [id number] 1538) RAD, CHEST, 1 VIEW, NON [id number] 04:57:00while patient is intubated or has chest [...] Avila Verified Date/Time: 10/31/2017 04:57:34 Reading Location: [facility] C013 Transitional Reading Room BASIC METABOLIC PANEL 2017-10-31 [...] m DATA TO CALCULA TE ESTIMATED GFR. [id number] 03:34:00 Test Item Value Reference Range Interpretation Comments PHOSPHORUS (BEAKER) (test code = 3.7 mg/dL 2.3-4.7 604) [id number] 03:34:00 Test Item Value Reference Range Interpretation [...] % 40.1-51.0 L 411) MEAN CORPUSCULAR VOLUME ([facility]) 87.7 fL 79.0-92.2 (test code = 753) MEAN CORPUSCULAR HEMOGLOBIN 28.2 pg 25.7-32.2 (AKER) (test code = 751) MEAN CORPUSCULAR HEMOGLOBIN CONC 32.1 GM/DL 32.3-36.5 L (AKER) (test code = 752) RED CELL DISTRIBUTION WIDTH 13.8 % 11.6-14.4 (AKER) (test code = 412) PLATELET COUNT ([facility]) (test 127 K/CU MM 150-450 L code = 756) MEAN PLATELET VOLUME ([facility]) 12.2 fL 9.4-12.4 (test code = 754) NUCLEATED RED BLOOD CELLS 0 /100 WBC 0-0 ([facility]) (test code = 413) POCT-GLUCOSE [id number] 02:32:00 Test Item Value Reference Range Interpretation Comments POC-GLUCOSE METER 107 mg/dL 70-110 TESTED AT [place] [address] ([facility]) (test code = JM Bañuelos [facility] 1538) 9[address] POCT-GLUCOSE [id number] 01:09:00 Test Item Value Reference Range Interpretation Comments POC-GLUCOSE METER 118 mg/dL 70-110 H TESTED AT [place] [address] ([facility]) (test code = JM Bañuelos [facility] 1538) 90991 POCT-GLUCOSE [id number] 00:31:00 Test Item Value Reference Range Interpretation Comments POC-GLUCOSE METER 115 mg/dL 70-110 H TESTED AT [place] [address] ([facility]) (test code = JM Bañuelos [facility] 1538) 68460 POCT-GLUCOSE [id number] 22:56:00 Test Item Value Reference Range Interpretation Comments POC-GLUCOSE METER 149 mg/dL 70-110 H TESTED AT [place] [address] ([facility]) (test code = JM Bañuelos [facility] 1538) 11383 POCT-GLUCOSE [id number] 22:16:00 Test Item Value Reference Range Interpretation Comments POC-GLUCOSE METER 153 mg/dL 70-110 H TESTED AT [place] [address] ([facility]) (test code = JM Bañuelos [facility] 1538) 82585 POCT-GLUCOSE [id number] 21:07:00 Test Item Value Reference Range Interpretation Comments POC-GLUCOSE METER 167 mg/dL 70-110 H TESTED AT [place] [address] ([facility]) (test code = JM Bañuelos [facility] 1538) 33192 LACTIC ACID, ARTERIAL, WHOLE [id number] 20:31:00 Test Item Value Reference Range Interpretation Comments LACTATE BLOOD ARTERIAL (2) 2.1 mmol/L 0.5-2.2 (BEAKER) (test code = 2874) Effective 07/06/2015: Units/Reference Range ChangeNew: 0.5-2.2 mmol/L Previous: 5- 20 mg/[id number] 20:31:00 Test Item Value Reference Range Interpretation Comments MAGNESIUM (BEAKER) (test code = 2.0 mg/dL 1.6-2.6 627) [id number] 20:30:00 Test Item Value Reference Range Interpretation Comments POTASSIUM (BEAKER) (test code = 4.1 meq/L 3.5-5.1 379) CALCIUM, [id number] 20:12:00 Test Item Value Reference Range Interpretation Comments CALCIUM IONIZED (BEAKER) (test 1.15 mmol/L 1.12-1.27 code = 698) PH, BLOOD (BEAKER) (test code = 7.36 1810) POCT-GLUCOSE [id number] 20:08:00 Test Item Value Reference Range Interpretation Comments POC-GLUCOSE METER 190 mg/dL 70-110 H TEST[facility] AT [place] [address] [facility] (test code = JM Bañuelos [facility] 1538) 77860 POCT-GLUCOSE [id number] 19:08:00 Test Item Value Reference Range Interpretation Comments POC-GLUCOSE METER 206 mg/dL 70-110 H TESTED AT [place] [address] [facility] (test code = JM Bañuelos [facility] 1538) [address] BLOOD GAS, [id number] 17:52:00 Test Item Value Reference Range Interpretation [...] 40.0 % RAD, CHEST, 1 VIEW, NON [id number] 17:41:00Reason for exam:->s/p ACBShould this be performed [...] or consolidation. Low lung volumes. Signed: [facility] Verified Date/Time: 10/30/2017 17:41:44 Reading Location: [address] Consult Reading Room POCT-GLUCOSE [id number] 17:30:00 Test Item Value Reference Range Interpretation Comments POC-GLUCOSE METER 225 mg/dL 70-110 H TESTED AT [place] [address] ([facility]) (test code = JM Bañuelos [facility] 1538) 90370 POCT-GLUCOSE [id number] 16:34:00 Test Item Value Reference Range Interpretation Comments POC-GLUCOSE METER 224 mg/dL 70-110 H TESTED AT [place] [id number] ([facility]) (test code = JM Bañuelos [facility] 1538) 87929 CBC W/PLT COUNT & AUTO [id number] 15:30:00 Test Item Value Reference Range Interpretation [...] = 3438) Received comment: User comments: Slide comments:[id number] 15:21:00 Test Item Value Reference Range Interpretation Comments POTASSIUM (BEAKER) (test code = 4.9 meq/L 3.5-5.1 379) [id number] 15:21:00 Test Item Value Reference Range Interpretation Comments MAGNESIUM (BEAKER) (test code = 1.9 mg/dL 1.6-2.6 627) [id number] 15:21:00 Test Item Value Reference Range Interpretation Comments PHOSPHORUS (BEAKER) (test code = 3.1 mg/dL 2.3-4.7 604) [id number] 15:21:00 Test Item Value Reference Range Interpretation Comments SODIUM (BEAKER) (test code = 381) 139 meq/L 136-145 [id number] 15:21:00 Test Item Value Reference Range Interpretation Comments GLUCOSE RANDOM (BEAKER) (test code 211 mg/dL 70-105 H = 652) BASIC METABOLIC [id number] 15:21:00 Test Item Value Reference Range Interpretation [...] m DATA TO CALCULA TE ESTIMATED GFR. [id number] 15:20:00 Test Item Value Reference Range Interpretation Comments FIBRINOGEN LEVEL (BEAKER) (test 370 mg/dl 225-434 code = 658) [id number] 15:20:00 Test Item Value Reference Range Interpretation [...] 0.5-2.2 mmol/L Previous: 5- 20 mg/dLOXYGEN SATURATION, [id number] 15:13:00 Test Item Value Reference Range Interpretation [...] code = 413) HGB/HCT (H&H) - STAT [id number] 14:56:00 Test Item Value Reference Range Interpretation Comments HEMOGLOBIN (BEAKER) (test code = 12.1 g/dL 13.0-16.8 L 410) HEMATOCRIT (BEAKER) (test code = 36.0 % 40.0-50.0 L 411) CALCIUM, [id number] 14:56:00 Test Item Value Reference Range Interpretation Comments CALCIUM IONIZED (BEAKER) (test 1.07 mmol/L 1.12-1.27 L code = 698) PH, BLOOD (BEAKER) (test code = 7.29 1810) SODIUM NA-STAT [id number] 14:55:00 Test Item Value Reference Range Interpretation Comments SODIUM (BEAKER) (test code = 381) 136 meq/L 135-148 POTASSIUM-STAT [id number] 14:55:00 Test Item Value Reference Range Interpretation Comments POTASSIUM (BEAKER) (test code = 4.7 meq/L 3.6-5.5 379) GLUCOSE-STAT [id number] 14:55:00 Test Item Value Reference Range Interpretation Comments GLUCOSE RANDOM (BEAKER) (test code 209 mg/dL 70-110 H = 652) HEMOGLOBIN-STAT [id number] 14:55:00 Test Item Value Reference Range Interpretation Comments HEMOGLOBIN (BEAKER) (test code = 12.1 g/dL 13.0-16.8 L 410) HGB/HCT (H&H) - STAT [id number] 14:55:00 Test Item Value Reference Range Interpretation Comments HEMOGLOBIN (BEAKER) (test code = 12.1 GM/DL 13.0-16.8 L 410) HEMATOCRIT (BEAKER) (test code = 36.0 % 40.0-50.0 L 411) BLOOD GAS, [id number] 14:55:00 Test Item Value Reference Range Interpretation [...] code = 1819) 60.0 % SODIUM NA-STAT [id number] 14:55:00 Test Item Value Reference Range Interpretation Comments SODIUM (BEAKER) (test code = 381) 136 meq/L 135-148 POTASSIUM-STAT [id number] 14:55:00 Test Item Value Reference Range Interpretation Comments POTASSIUM (BEAKER) (test code = 4.7 meq/L 3.6-5.5 379) GLUCOSE-STAT [id number] 14:55:00 Test Item Value Reference Range Interpretation Comments GLUCOSE RANDOM (BEAKER) (test code 209 mg/dL 70-110 H = 652) [id number] 14:02:00 Test Item Value Reference Range Interpretation Comments ACTIVATED CLOTTING TIME 109 sec TEST ED AT [place] [address] (BEAKER) (test code = JM TAM [place] 441) [address] [id number] 14:02:00 Test Item Value Reference Range Interpretation Comments ACTIVATED CLOTTING TIME 433 sec TEST ED AT [place] [address] ([facility]) (test code = JM Bañuelos [facility] 441) [address] [id number] 14:02:00 Test Item Value Reference Range Interpretation Comments ACTIVATED CLOTTING TIME 422 sec TEST ED AT [place] [address] ([facility]) (test code = JM Bañuelos [place] [address]) [address] [id number] 14:02:00 Test Item Value Reference Range Interpretation Comments ACTIVATED CLOTTING TIME 455 sec TEST ED AT [place] [address] ([facility]) (test code = JM Bañuelos [place] [address]) [address] CALCIUM, [id number] 13:33:00 Test Item Value Reference Range Interpretation Comments CALCIUM IONIZED (BEAKER) (test 1.19 mmol/L 1.12-1.27 code = 698) PH, BLOOD (BEAKER) (test code = 7.31 1810) BLOOD GAS, [id number] 13:32:00 Test Item Value Reference Range Interpretation [...] (test code = 1819) 100.0 % GLUCOSE-STAT [id number] 13:32:00 Test Item Value Reference Range Interpretation Comments GLUCOSE RANDOM (BEAKER) (test code 203 mg/dL 70-110 H = 652) HGB/HCT (H&H) - STAT [id number] 13:32:00 Test Item Value Reference Range Interpretation Comments HEMOGLOBIN (BEAKER) (test code = 10.3 g/dL 13.0-16.8 L 410) HEMATOCRIT (BEAKER) (test code = 30.0 % 40.0-50.0 L 411) SODIUM NA-STAT [id number] 13:30:00 Test Item Value Reference Range Interpretation Comments SODIUM (BEAKER) (test code = 381) 135 meq/L 135-148 POTASSIUM-STAT [id number] 13:30:00 Test Item Value Reference Range Interpretation Comments POTASSIUM (BEAKER) (test code = 4.7 meq/L 3.6-5.5 379) POTASSIUM-STAT [id number] 12:43:00 Test Item Value Reference Range Interpretation Comments POTASSIUM (BEAKER) (test code = 5.4 meq/L 3.6-5.5 379) BLOOD GAS, [id number] 12:43:00 Test Item Value Reference Range Interpretation [...] code = 1819) 80.0 % SODIUM NA-STAT [id number] 12:43:00 Test Item Value Reference Range Interpretation Comments SODIUM (BEAKER) (test code = 381) 133 meq/L 135-148 L GLUCOSE-STAT [id number] 12:43:00 Test Item Value Reference Range Interpretation Comments GLUCOSE RANDOM (BEAKER) (test code 195 mg/dL 70-110 H = 652) HGB/HCT (H&H) - STAT [id number] 12:43:00 Test Item Value Reference Range Interpretation Comments HEMOGLOBIN (BEAKER) (test code = 8.8 g/dL 13.0-16.8 L 410) HEMATOCRIT (BEAKER) (test code = 26.0 % 40.0-50.0 L 411) BLOOD GAS, [id number] 12:18:00 Test Item Value Reference Range Interpretation [...] (test code = 1819) 80.0 % GLUCOSE-STAT [id number] 12:18:00 Test Item Value Reference Range Interpretation Comments GLUCOSE RANDOM (BEAKER) (test code 192 mg/dL 70-110 H = 652) HGB/HCT (H&H) - STAT [id number] 12:18:00 Test Item Value Reference Range Interpretation Comments HEMOGLOBIN (BEAKER) (test code = 8.7 g/dL 13.0-16.8 L 410) HEMATOCRIT (BEAKER) (test code = 26.0 % 40.0-50.0 L 411) BLOOD GAS, [id number] 12:18:00 Test Item Value Reference Range Interpretation [...] code = 1819) 80.0 % SODIUM NA-STAT [id number] 12:17:00 Test Item Value Reference Range Interpretation Comments SODIUM (BEAKER) (test code = 381) 135 meq/L 135-148 POTASSIUM-STAT [id number] 12:17:00 Test Item Value Reference Range Interpretation Comments POTASSIUM (BEAKER) (test code = 4.2 meq/L 3.6-5.5 379) CALCIUM, [id number] 11:50:00 Test Item Value Reference Range Interpretation Comments CALCIUM IONIZED (BEAKER) (test 1.05 mmol/L 1.12-1.27 L code = 698) PH, BLOOD (BEAKER) (test code = 7.34 1810) BLOOD GAS, [id number] 11:50:00 Test Item Value Reference Range Interpretation [...] (test code = 1819) 55.0 % GLUCOSE-STAT [id number] 11:50:00 Test Item Value Reference Range Interpretation Comments GLUCOSE RANDOM (BEAKER) (test code 141 mg/dL 70-110 H = 652) HGB/HCT (H&H) - STAT [id number] 11:50:00 Test Item Value Reference Range Interpretation Comments HEMOGLOBIN (BEAKER) (test code = 12.0 g/dL 13.0-16.8 L 410) HEMATOCRIT (BEAKER) (test code = 35.0 % 40.0-50.0 L 411) SODIUM NA-STAT [id number] 11:49:00 Test Item Value Reference Range Interpretation Comments SODIUM (BEAKER) (test code = 381) 139 meq/L 135-148 POTASSIUM-STAT [id number] 11:49:00 Test Item Value Reference Range Interpretation Comments POTASSIUM (BEAKER) (test code = 4.1 meq/L 3.6-5.5 379) HEMOGLOBIN [id number] 09:17:00 Test Item Value Reference Range Interpretation Comments HEMOGLOBIN A1C (BEAKER) (test code = 7.0 % 4.3-6.1 H 368) HEMOGLOBIN [id number] 09:16:00 Test Item Value Reference Range Interpretation Comments HEMOGLOBIN A1C (BEAKER) (test code = 7.0 % 4.3-6.1 H 368) POCT-GLUCOSE [id number] 07:25:00 Test Item Value Reference Range Interpretation Comments POC-GLUCOSE METER 205 mg/dL 70-110 H TESTED AT [facility] 6720 (BEAKER) (test code = JM Bañuelos [place] 1538) [address] BASIC METABOLIC [id number] 02:09:00 Test Item Value Reference Range Interpretation [...] m DATA TO CALCULA TE ESTIMATED GFR. [id number] 02:06:00 Test Item Value Reference Range Interpretation Comments MAGNESIUM (BEAKER) (test code = 2.0 mg/dL 1.6-2.6 627) LIPID [id number] 02:06:00 Test Item Value Reference Range Interpretation Comments TRIGLYCERIDES (BEAKER) (test code = 264 mg/dL 540) CHOLESTEROL (BEAKER) (test code = 176 mg/dL 631) HDL CHOLESTEROL (BEAKER) (test code 33 mg/dL = 976) LDL CHOLESTEROL CALCULATED (BEAKER) 90 mg/dL (test code = 633) Triglyceride Reference Range: Low Risk <150 Borderline 150-199 High Risk 200- 499 Very High Risk >=500Cholesterol Reference Range: Low Risk <200 Borderline 200-239 High Risk >240HDL Cholesterol Reference Range: Low Risk >=60 High Risk <40LDL Cholesterol Reference Range: Optimal <100 Near Optimal 100-129 Borderline 130-159 High 160-189 Very High >=[id number] 01:54:00 Test Item Value Reference Range Interpretation [...] WBC 0-0 (BEAKER) (test code = 413) [id number] 19:05:00 Test Item Value Reference Range Interpretation Comments THYROID STIMULATING HORMONE 0.53 uIU/mL 0.35-4.94 (BEAKER) (test code = 772) COMPREHENSIVE METABOLIC [id number] 18:55:00 Test Item Value Reference Range Interpretation [...] T O CALCULATE ESTIM ATED GFR. TROPONIN [id number] 18:51:00 Test Item Value Reference Range Interpretation [...] failure, acidosis, acute neurological disease, and persistent tachyarrhythmia.[id number] 18:46:00 Test Item Value Reference Range Interpretation Comments MAGNESIUM (BEAKER) (test code = 2.0 mg/dL 1.6-2.6 627) PROTHROMBIN TIME/[id number] 18:45:00 Test Item Value Reference Range Interpretation Comments PROTIME (BEAKER) (test code = 15.0 seconds 11.7-14.7 H 759) INR (BEAKER) (test code = 370) 1.2 <=5.9 RECOMMENDED COUMADIN/WARFARIN INR THERAPY RANGESSTANDARD DOSE: 2.0 - 3.0 Includes: PROPHYLAXIS for venous thrombosis, systemic embolization; TREATMENT for venous thrombosis and/or pulmonary embolus.HIGH RISK: Target INR is 2.5-3.5 for patients with mechanical heart valves.PT/[id number] 18:45:00 Test Item Value Reference Range Interpretation [...] heart valves.Prior to initiating heparinPrior to initiating [id number] 18:45:00 Test Item Value Reference Range Interpretation Comments PARTIAL THROMBOPLASTIN TIME 27.4 seconds 22.5-36.0 (BEAKER) (test code = 760) CBC W/PLT COUNT & AUTO [id number] 18:30:00 Test Item Value Reference Range Interpretation [...] PERCENT (BEAKER) (test code = 2801) PLATELET [id number] 18:29:00 Test Item Value Reference Range Interpretation Comments PLATELET COUNT (BEAKER) (test 185 K/CU MM 150-450 code = 756) RAD, CHEST, 1 VIEW, NON [id number] 15:52:00Reason for exam:->preopShould this be performed at the bedside?->YesFINAL REPORT CLINICAL HISTORY: preop TECHNIQUE: 1 view of the chest COMPARISON:None IMPRESSION: There are no focal infiltrates or pleural effusions. The cardiomediastinal silhouette is within normal limits for size. The visualized bones are intact. Signed: Venice Erwin MDReport Verified Date/Time: 10/29/2017 15:52:57 Reading Location: [facility] C013W Consult Reading Room [id number] 05:16:00 Test Item Value Reference Range Interpretation Comments Basophils (test code = 0.2 See_Comment [Aut omated message] The Basophils) system which ge nerated this result tra nsmitted reference range : <=1.0. The reference r mily was not used to int erpret this result as normal/abnormal . [id number] 05:16:00 Test Item Value Reference Range Interpretation Comments Eosinophils (test code = 1.2 See_Comment [A utomated message] The Eosinophils) system which ge nerated this result tra nsmitted reference range : <=4.0. The reference r mily was not used to int erpret this result as normal/abnormal . [facility] H[id number] 05:16:00 Test Item Value Reference Range Interpretation Comments Eosinophils # (test code 0.1 See_Comment [A utomated message] The = Eosinophils #) system [facility] generated this result tra nsmitted reference range : <=0.5. The reference r mily was not used to int erpret this result as normal/abnormal . [facility] HospitalXcybbwcSYIUJDQYWP1719-00-22 05:16:00 Test Item Value Reference Range Interpretation Comments Monocytes # (test code 1.1 See_Comment [Aut omated message] The = Monocytes #) system which generated this result tra nsmitted reference range : <=0.8. The reference r mily was not used to int erpret this result as normal/abnormal . [facility] Hospit[id number] 05:16:00 Test Item Value Reference Range Interpretation Comments Lymphocytes (test code = Lymphocytes) 19.5 20.0-40.0 [id number] 05:16:00 Test Item Value Reference Range Interpretation Comments Segs (test code = Segs) 69.2 45.0-75.0 [facility]2015-05-25 05:16:00 Test Item Value Reference Range Interpretation Comments Globulin (test code = Globulin) 3.7 2.0-4.0 [facility]2015-05-25 05:16:00 Test Item Value Reference Range Interpretation Comments A/G Ratio (test code = A/G Ratio) 0.8 0.7-1.6 [facility]2015-05-25 05:16:00 Test Item Value Reference Range Interpretation Comments AGAP (test code = AGAP) 13.9 10.0-20.0 [facility]2015-05-25 05:16:00 Test Item Value Reference Range Interpretation Comments B/C Ratio (test code = B/C Ratio) 11 08-26 [facility]2015-05-25 05:16:00 Test Item Value Reference Range Interpretation Comments eGFR (test code = eGFR) 94 [facility]2015-05-25 05:16:00 Test Item Value Reference Range Interpretation Comments Glucose Lvl (test code = Glucose Lvl) 98 70-99 [facility]2015-05-25 05:16:00 Test Item Value Reference Range Interpretation Comments BUN (test code = BUN) 10 - [facility]2015-05-25 05:16:00 Test Item Value Reference Range Interpretation Comments Globulin (test code = Globulin) 3.7 2.0-4.0 [facility]2015-05-25 05:16:00 Test Item Value Reference Range Interpretation Comments A/G Ratio (test code = A/G Ratio) 0.8 0.7-1.6 [facility]2015-05-25 05:16:00 Test Item Value Reference Range Interpretation Comments AGAP (test code = AGAP) 13.9 10.0-20.0 [facility]2015-05-25 05:16:00 Test Item Value Reference Range Interpretation Comments B/C Ratio (test code = B/C Ratio) 11 08-26 [place] 601985-05-25 05:16:00 Test Item Value Reference Range Interpretation Comments ALT (test code = ALT) 63 See_Comment [Auto mated message] The system which ge nerated this result transmit lou reference range : <=65. The reference range was not used to interpr et this result as you l/abnormal. [facility]2015-05-25 05:16:00 Test Item Value Reference Range Interpretation Comments eGFR (test code = eGFR) 94 [place] 601985-05-25 05:16:00 Test Item Value Reference Range Interpretation Comments Glucose Lvl (test code = Glucose Lvl) 98 70-99 [place] 601985-05-25 05:16:00 Test Item Value Reference Range Interpretation Comments BUN (test code = BUN) 10 7-22 [facility]2015-05-25 05:16:00 Test Item Value Reference Range Interpretation Comments ALT (test code = ALT) 63 <=65 [place] 601985-05-25 05:16:00 Test Item Value Reference Range Interpretation Comments AST (test code = AST) 31 <=37 [place] 601985-05-25 05:16:00 Test Item Value Reference Range Interpretation Comments Albumin Lvl (test code = Albumin Lvl) 2.9 3.5-5.0 [place] 601985-05-25 05:16:00 Test Item Value Reference Range Interpretation Comments Bili Total (test code = Bili Total) 0.4 0.2-1.3 [place] 601985-05-25 05:16:00 Test Item Value Reference Range Interpretation Comments Alk Phos (test code = Alk Phos) 100 39-136 [place] 601985-05-25 05:16:00 Test Item Value Reference Range Interpretation Comments Potassium Lvl (test code = Potassium 3.9 3.5-5.1 Lvl) [facility]2015-05-25 05:16:00 Test Item Value Reference Range Interpretation Comments Sodium Lvl (test code = Sodium Lvl) 140 135-145 [place] 601985-05-25 05:16:00 Test Item Value Reference Range Interpretation Comments AST (test code = AST) 31 See_Comment [Auto mated message] The system which ge nerated this result transmit lou reference range : <=37. The reference range was not used to interpr et this result as you l/abnormal. [facility]2015-05-25 05:16:00 Test Item Value Reference Range Interpretation Comments CO2 (test code = CO2) 22 24-32 [place] 601985-05-25 05:16:00 Test Item Value Reference Range Interpretation Comments Chloride Lvl (test code = Chloride Lvl) 108 95-109 [facility]2015-05-25 05:16:00 Test Item Value Reference Range Interpretation Comments Creatinine Lvl (test code = Creatinine 0.9 0.5-1.4 Lvl) [facility]2015-05-25 05:16:00 Test Item Value Reference Range Interpretation Comments Calcium Lvl (test code = Calcium Lvl) 9.0 8.5-10.5 [place] 601985-05-25 05:16:00 Test Item Value Reference Range Interpretation Comments Total Protein (test code = Total 6.6 6.4-8.4 Protein) [facility] HospitalUexoagdOHSATQIMKY8885-96-20 05:16:00 Test Item Value Reference Range Interpretation Comments Platelet (test code = Platelet) 176 133-450 [facility] HospitalOcdvwatHUSLGQPUKW5727-97-63 05:16:00 Test Item Value Reference Range Interpretation Comments Hgb (test code = Hgb) 12.5 14.0-18.0 [place] 858855-05-25 05:16:00 Test Item Value Reference Range Interpretation Comments Hct (test code = Hct) 38.8 42.0-54.0 [place] 858855-05-25 05:16:00 Test Item Value Reference Range Interpretation Comments RBC (test code = RBC) 4.41 4.70-6.10 [place] 858855-05-25 05:16:00 Test Item Value Reference Range Interpretation Comments MCV (test code = MCV) 88.1 80.0-94.0 [facility]2015-05-25 05:16:00 Test Item Value Reference Range Interpretation Comments Albumin Lvl (test code = Albumin Lvl) 2.9 3.5-5.0 [place] 858855-05-25 05:16:00 Test Item Value Reference Range Interpretation Comments MCH (test code = MCH) 28.3 pg 27.0-31.0 [facility] HospitalNmbrxmrUGDATYSQPA4438-36-35 05:16:00 Test Item Value Reference Range Interpretation Comments MPV (test code = MPV) 10.3 7.4-10.4 [facility] HospitalIiypszvARMJXEUEKT0820-53-69 05:16:00 Test Item Value Reference Range Interpretation Comments RDW (test code = RDW) 13.7 11.5-14.5 [facility] HospitalPpppwuwFXQEWTDETP6628-69-45 05:16:00 Test Item Value Reference Range Interpretation Comments MCHC (test code = MCHC) 32.1 32.0-36.0 [facility] HospitalIyagicoPMDJIVWVDD4610-10-63 05:16:00 Test Item Value Reference Range Interpretation Comments WBC (test code = WBC) 11.4 3.7-10.4 [facility] HospitalBhvtsjxZRFUMCIIZA8334-37-59 05:16:00 Test Item Value Reference Range Interpretation Comments Segs-Bands # (test code = Segs-Bands #) 7.9 1.5-8.1 [facility] HospitalOwgeimiQXDKVVONNN6968-70-06 05:16:00 Test Item Value Reference Range Interpretation Comments Lymphocytes # (test code = Lymphocytes 2.2 1.0-5.5 #) [facility] HospitalXlvkxutKZRAISOJDX8521-93-23 05:16:00 Test Item Value Reference Range Interpretation Comments Monocytes (test code = Monocytes) 9.9 2.0-12.0 [facility] HospitalChevlupAGNKAHDQFY2020-56-78 05:16:00 Test Item Value Reference Range Interpretation Comments Basophils (test code = Basophils) 0.2 <=1.0 [facility] HospitalMouewzgVYXNNRVAHH9897-67-89 05:16:00 Test Item Value Reference Range Interpretation Comments Eosinophils (test code = Eosinophils) 1.2 <=4.0 [facility]2015-05-25 05:16:00 Test Item Value Reference Range Interpretation Comments Bili Total (test code = Bili Total) 0.4 0.2-1.3 [facility]WjswjrpJOKRUTWXCW3268-35-11 05:16:00 Test Item Value Reference Range Interpretation Comments Eosinophils # (test code = Eosinophils 0.1 <=0.5 #) [facility]GcdzzmuHDHNGVRVNV1230-70-85 05:16:00 Test Item Value Reference Range Interpretation Comments Monocytes # (test code = Monocytes #) 1.1 <=0.8 [facility] HospitalVndcitcAOZPVUGLFF9513-58-26 05:16:00 Test Item Value Reference Range Interpretation Comments Lymphocytes (test code = Lymphocytes) 19.5 20.0-40.0 [facility] HospitalIhnpjvkNKDNURNUHI3951-42-63 05:16:00 Test Item Value Reference Range Interpretation Comments Segs (test code = Segs) 69.2 45.0-75.0 [facility]2015-05-25 05:16:00 Test Item Value Reference Range Interpretation Comments Alk Phos (test code = Alk Phos) 100 39-136 [facility]2015-05-25 05:16:00 Test Item Value Reference Range Interpretation Comments Potassium Lvl (test code = Potassium 3.9 3.5-5.1 Lvl) [facility]2015-05-25 05:16:00 Test Item Value Reference Range Interpretation Comments Sodium Lvl (test code = Sodium Lvl) 140 135-145 [facility]2015-05-25 05:16:00 Test Item Value Reference Range Interpretation Comments CO2 (test code = CO2) 22 24-32 [facility]2015-05-25 05:16:00 Test Item Value Reference Range Interpretation Comments Chloride Lvl (test code = Chloride Lvl) 108 95-109 [facility]2015-05-25 05:16:00 Test Item Value Reference Range Interpretation Comments Creatinine Lvl (test code = Creatinine 0.9 0.5-1.4 Lvl) [facility]2015-05-25 05:16:00 Test Item Value Reference Range Interpretation Comments Calcium Lvl (test code = Calcium Lvl) 9.0 8.5-10.5 [facility]2015-05-25 05:16:00 Test Item Value Reference Range Interpretation Comments Total Protein (test code = Total 6.6 6.4-8.4 Protein) [facility] HospitalHnqruqpBHWMSHAUSS2365-21-50 05:16:00 Test Item Value Reference Range Interpretation Comments Platelet (test code = Platelet) 176 133-450 [facility] HospitalAmryuygOJXLQHJJTT5196-22-45 05:16:00 Test Item Value Reference Range Interpretation Comments Hgb (test code = Hgb) 12.5 14.0-18.0 [facility] HospitalGgsdhgcNMNUWSKHVT6692-34-10 05:16:00 Test Item Value Reference Range Interpretation Comments Hct (test code = Hct) 38.8 42.0-54.0 [facility] HospitalGphguytADJGYRAUUS2993-61-09 05:16:00 Test Item Value Reference Range Interpretation Comments RBC (test code = RBC) 4.41 4.70-6.10 [facility] HospitalKmmmwcqUNEVKKYLQX1173-60-41 05:16:00 Test Item Value Reference Range Interpretation Comments MCV (test code = MCV) 88.1 80.0-94.0 [facility] HospitalQnkbcmnFJHOLSCDSH6170-25-22 05:16:00 Test Item Value Reference Range Interpretation Comments MCH (test code = MCH) 28.3 pg 27.0-31.0 [facility] HospitalHjjslrpRBHOXVIZME3436-50-35 05:16:00 Test Item Value Reference Range Interpretation Comments MPV (test code = MPV) 10.3 7.4-10.4 [facility] HospitalDhpqtdiMMFIDHDFUZ9281-26-53 05:16:00 Test Item Value Reference Range Interpretation Comments RDW (test code = RDW) 13.7 11.5-14.5 [facility] HospitalUdvdmnhGFYXDBWQRS7781-56-66 05:16:00 Test Item Value Reference Range Interpretation Comments MCHC (test code = MCHC) 32.1 32.0-36.0 [facility] HospitalZzbqsyfXSVDDRKANM4211-35-57 05:16:00 Test Item Value Reference Range Interpretation Comments WBC (test code = WBC) 11.4 3.7-10.4 [facility] HospitalPosgonrFOKBKXTSDB6507-74-17 05:16:00 Test Item Value Reference Range Interpretation Comments Segs-Bands # (test code = Segs-Bands #) 7.9 1.5-8.1 [facility] HospitalVggfnauATKBKETBAE3425-84-16 05:16:00 Test Item Value Reference Range Interpretation Comments Lymphocytes # (test code = Lymphocytes 2.2 1.0-5.5 #) [facility] HospitalCgzwtgeFKUYJJTBTR2596-66-44 05:16:00 Test Item Value Reference Range Interpretation Comments Monocytes (test code = Monocytes) 9.9 2.0-12.0 [facility]2015-05-24 05:01:00 Test Item Value Reference Range Interpretation Comments eGFR (test code = eGFR) 94 [facility]2015-05-24 05:01:00 Test Item Value Reference Range Interpretation Comments Alk Phos (test code = Alk Phos) 84 39-136 [facility]2015-05-24 05:01:00 Test Item Value Reference Range Interpretation Comments Bili Total (test code = Bili Total) 0.5 0.2-1.3 [facility]2015-05-24 05:01:00 Test Item Value Reference Range Interpretation Comments ALT (test code = ALT) 45 See_Comment [Auto mated message] The system which ge nerated this result transmit lou reference range : <=65. The reference range was not used to interpr et this result as you l/abnormal. [facility]2015-05-24 05:01:00 Test Item Value Reference Range Interpretation Comments AST (test code = AST) 27 See_Comment [Auto mated message] The system which ge nerated this result transmit lou reference range : <=37. The reference range was not used to interpr et this result as you l/abnormal. [facility]2015-05-24 05:01:00 Test Item Value Reference Range Interpretation Comments Chloride Lvl (test code = Chloride Lvl) 107 95-109 [facility]2015-05-24 05:01:00 Test Item Value Reference Range Interpretation Comments BUN (test code = BUN) 15 7-22 [facility]2015-05-24 05:01:00 Test Item Value Reference Range Interpretation Comments Glucose Lvl (test code = Glucose Lvl) 113 70-99 [facility]2015-05-24 05:01:00 Test Item Value Reference Range Interpretation Comments Albumin Lvl (test code = Albumin Lvl) 3.1 3.5-5.0 [facility]2015-05-24 05:01:00 Test Item Value Reference Range Interpretation Comments CO2 (test code = CO2) 20 24-32 [facility]2015-05-24 05:01:00 Test Item Value Reference Range Interpretation Comments Calcium Lvl (test code = Calcium Lvl) 8.8 8.5-10.5 [facility]2015-05-24 05:01:00 Test Item Value Reference Range Interpretation Comments Total Protein (test code = Total 7.2 6.4-8.4 Protein) [facility]2015-05-24 05:01:00 Test Item Value Reference Range Interpretation Comments Creatinine Lvl (test code = Creatinine 0.9 0.5-1.4 Lvl) [facility]2015-05-24 05:01:00 Test Item Value Reference Range Interpretation Comments Sodium Lvl (test code = Sodium Lvl) 138 135-145 [facility]2015-05-24 05:01:00 Test Item Value Reference Range Interpretation Comments Potassium Lvl (test code = Potassium 4.1 3.5-5.1 Lvl) [facility]2015-05-24 05:01:00 Test Item Value Reference Range Interpretation Comments Globulin (test code = Globulin) 4.1 2.0-4.0 [facility]2015-05-24 05:01:00 Test Item Value Reference Range Interpretation Comments A/G Ratio (test code = A/G Ratio) 0.8 0.7-1.6 [facility]2015-05-24 05:01:00 Test Item Value Reference Range Interpretation Comments AGAP (test code = AGAP) 15.1 10.0-20.0 [facility]2015-05-24 05:01:00 Test Item Value Reference Range Interpretation Comments B/C Ratio (test code = B/C Ratio) 17 6-25 [facility] HospitalTznayfvQZALKYBSVP5551-61-61 05:01:00 Test Item Value Reference Range Interpretation Comments Lymphocytes # (test code = Lymphocytes 2.3 1.0-5.5 #) [facility] HospitalKlvjrskVGEAGNJOIT4062-25-13 05:01:00 Test Item Value Reference Range Interpretation Comments Eosinophils # (test code 0.1 See_Comment [A utomated message] The = Eosinophils #) system whic h generated this result tra nsmitted reference range : <=0.5. The reference r mily was not used to int erpret this result as normal/abnormal . [facility] HospitalSgjqqpcKNSXLXXKDJ9037-80-68 05:01:00 Test Item Value Reference Range Interpretation Comments Basophils (test code = 0.3 See_Comment [Aut omated message] The Basophils) system which ge nerated this result tra nsmitted reference range : <=1.0. The reference r mily was not used to int erpret this result as normal/abnormal . [facility] HospitalAmnpzhiSPJKTXRAYM4205-79-02 05:01:00 Test Item Value Reference Range Interpretation Comments Monocytes # (test code 1.2 See_Comment [Aut omated message] The = Monocytes #) system which generated this result tra nsmitted reference range : <=0.8. The reference r mily was not used to int erpret this result as normal/abnormal . [facility] HospitalWqoojrdFWPRKEZUIJ3765-34-43 05:01:00 Test Item Value Reference Range Interpretation Comments Segs-Bands # (test code = Segs-Bands #) 10.3 1.5-8.1 [facility] HospitalLbhvonfNNWQYRYLYO2571-01-11 05:01:00 Test Item Value Reference Range Interpretation Comments Eosinophils (test code = 0.8 See_Comment [A utomated message] The Eosinophils) system which ge nerated this result tra nsmitted reference range : <=4.0. The reference r mily was not used to int erpret this result as normal/abnormal . [facility] HospitalThlkmhkZTHPLGXDOI1606-86-93 05:01:00 Test Item Value Reference Range Interpretation Comments Monocytes (test code = Monocytes) 8.9 2.0-12.0 [facility] HospitalXwjdgyhMMBWGWJNVS8127-90-64 05:01:00 Test Item Value Reference Range Interpretation Comments Segs (test code = Segs) 73.8 45.0-75.0 [facility] HospitalCtgazeoTMUQPQQWXM7997-73-38 05:01:00 Test Item Value Reference Range Interpretation Comments Lymphocytes (test code = Lymphocytes) 16.2 20.0-40.0 [facility] HospitalTemwtztTMNIMEQVZY0018-91-49 05:01:00 Test Item Value Reference Range Interpretation Comments Hct (test code = Hct) 39.7 42.0-54.0 [facility] HospitalLzamjkqKIMNORLYNO0577-22-23 05:01:00 Test Item Value Reference Range Interpretation Comments MCV (test code = MCV) 87.4 80.0-94.0 [facility] HospitalTizgifbYJXSBZEASB3957-03-40 05:01:00 Test Item Value Reference Range Interpretation Comments MCHC (test code = MCHC) 32.5 32.0-36.0 [facility] HospitalAxhhbnoFAUDCXWJMZ7686-28-56 05:01:00 Test Item Value Reference Range Interpretation Comments MCH (test code = MCH) 28.5 pg 27.0-31.0 [facility] HospitalTyepebeOBHZJQHEVD8280-36-76 05:01:00 Test Item Value Reference Range Interpretation Comments RDW (test code = RDW) 13.5 11.5-14.5 [facility] HospitalXffspipELMLVBBLOK0578-24-98 05:01:00 Test Item Value Reference Range Interpretation Comments Platelet (test code = Platelet) 163 133-450 [facility] HospitalJzeddpxKGDTYUAOTB6967-24-25 05:01:00 Test Item Value Reference Range Interpretation Comments MPV (test code = MPV) 10.2 7.4-10.4 [facility] HospitalCgfkyfgXTVONCENXG9940-34-30 05:01:00 Test Item Value Reference Range Interpretation Comments Hgb (test code = Hgb) 12.9 14.0-18.0 [facility] HospitalBfimiyxGUMKKMMVMQ1825-94-82 05:01:00 Test Item Value Reference Range Interpretation Comments RBC (test code = RBC) 4.54 4.70-6.10 [facility] HospitalIfigqfxZKWVFHAYXR5460-59-64 05:01:00 Test Item Value Reference Range Interpretation Comments WBC (test code = WBC) 14.0 3.7-10.4 [facility]2015-05-24 05:01:00 Test Item Value Reference Range Interpretation Comments eGFR (test code = eGFR) 94 [facility]2015-05-24 05:01:00 Test Item Value Reference Range Interpretation Comments Alk Phos (test code = Alk Phos) 84 39-136 [facility]2015-05-24 05:01:00 Test Item Value Reference Range Interpretation Comments Bili Total (test code = Bili Total) 0.5 0.2-1.3 [facility]2015-05-24 05:01:00 Test Item Value Reference Range Interpretation Comments ALT (test code = ALT) 45 <=65 [facility]2015-05-24 05:01:00 Test Item Value Reference Range Interpretation Comments AST (test code = AST) 27 <=37 [facility]2015-05-24 05:01:00 Test Item Value Reference Range Interpretation Comments Chloride Lvl (test code = Chloride Lvl) 107 95-109 [facility]2015-05-24 05:01:00 Test Item Value Reference Range Interpretation Comments BUN (test code = BUN) 15 7-22 [facility]2015-05-24 05:01:00 Test Item Value Reference Range Interpretation Comments Glucose Lvl (test code = Glucose Lvl) 113 70-99 [facility]2015-05-24 05:01:00 Test Item Value Reference Range Interpretation Comments Albumin Lvl (test code = Albumin Lvl) 3.1 3.5-5.0 [facility]2015-05-24 05:01:00 Test Item Value Reference Range Interpretation Comments CO2 (test code = CO2) 20 24-32 [facility]2015-05-24 05:01:00 Test Item Value Reference Range Interpretation Comments Calcium Lvl (test code = Calcium Lvl) 8.8 8.5-10.5 [facility]2015-05-24 05:01:00 Test Item Value Reference Range Interpretation Comments Total Protein (test code = Total 7.2 6.4-8.4 Protein) [facility]2015-05-24 05:01:00 Test Item Value Reference Range Interpretation Comments Creatinine Lvl (test code = Creatinine 0.9 0.5-1.4 Lvl) [facility]2015-05-24 05:01:00 Test Item Value Reference Range Interpretation Comments Sodium Lvl (test code = Sodium Lvl) 138 135-145 [facility]2015-05-24 05:01:00 Test Item Value Reference Range Interpretation Comments Potassium Lvl (test code = Potassium 4.1 3.5-5.1 Lvl) [facility]2015-05-24 05:01:00 Test Item Value Reference Range Interpretation Comments Globulin (test code = Globulin) 4.1 2.0-4.0 [facility]2015-05-24 05:01:00 Test Item Value Reference Range Interpretation Comments A/G Ratio (test code = A/G Ratio) 0.8 0.7-1.6 [facility]2015-05-24 05:01:00 Test Item Value Reference Range Interpretation Comments AGAP (test code = AGAP) 15.1 10.0-20.0 [facility]2015-05-24 05:01:00 Test Item Value Reference Range Interpretation Comments B/C Ratio (test code = B/C Ratio) 17 6-25 [facility] HospitalNtheyxrNJOZDBKYZU4105-59-51 05:01:00 Test Item Value Reference Range Interpretation Comments Lymphocytes # (test code = Lymphocytes 2.3 1.0-5.5 #) [facility] HospitalYyodurfCYZKQDXYCR2706-96-71 05:01:00 Test Item Value Reference Range Interpretation Comments Eosinophils # (test code = Eosinophils 0.1 <=0.5 #) [facility] HospitalNqnizxbEYWESGRQJJ3406-68-98 05:01:00 Test Item Value Reference Range Interpretation Comments Basophils (test code = Basophils) 0.3 <=1.0 [facility] HospitalQkaamajPNEHPRIVUZ2257-62-40 05:01:00 Test Item Value Reference Range Interpretation Comments Monocytes # (test code = Monocytes #) 1.2 <=0.8 [facility] HospitalYvmhqadQXSZKEFWAO0138-82-42 05:01:00 Test Item Value Reference Range Interpretation Comments Segs-Bands # (test code = Segs-Bands #) 10.3 1.5-8.1 [facility] HospitalListwyiZQJYEYOWAM3400-66-18 05:01:00 Test Item Value Reference Range Interpretation Comments Eosinophils (test code = Eosinophils) 0.8 <=4.0 [facility] HospitalFrvtsvfFRBHGNTKTQ3479-38-58 05:01:00 Test Item Value Reference Range Interpretation Comments Monocytes (test code = Monocytes) 8.9 2.0-12.0 [facility] HospitalPzgnuahDFOCYIHBLT2607-20-58 05:01:00 Test Item Value Reference Range Interpretation Comments Segs (test code = Segs) 73.8 45.0-75.0 [facility] HospitalQzftnmtWTWGQQFQXX7828-98-47 05:01:00 Test Item Value Reference Range Interpretation Comments Lymphocytes (test code = Lymphocytes) 16.2 20.0-40.0 [facility] HospitalVwqrpxkRVYABWIQYE3184-53-28 05:01:00 Test Item Value Reference Range Interpretation Comments Hct (test code = Hct) 39.7 42.0-54.0 [facility] HospitalIccymzkLYQLWCEHHL6279-83-62 05:01:00 Test Item Value Reference Range Interpretation Comments MCV (test code = MCV) 87.4 80.0-94.0 [facility] HospitalRvrpkhkBDIMPGRNJG1662-00-46 05:01:00 Test Item Value Reference Range Interpretation Comments MCHC (test code = MCHC) 32.5 32.0-36.0 [facility] HospitalWabfecmIANEDIFIWX5479-75-75 05:01:00 Test Item Value Reference Range Interpretation Comments MCH (test code = MCH) 28.5 pg 27.0-31.0 [facility] HospitalAnrewyfSNPCWZEBCS3067-96-27 05:01:00 Test Item Value Reference Range Interpretation Comments RDW (test code = RDW) 13.5 11.5-14.5 [facility] HospitalJglqfyfEWYOEDNOJN1609-83-73 05:01:00 Test Item Value Reference Range Interpretation Comments Platelet (test code = Platelet) 163 133-450 [facility] HospitalTloqkxuOXGONIMWPY7370-31-23 05:01:00 Test Item Value Reference Range Interpretation Comments MPV (test code = MPV) 10.2 7.4-10.4 [facility] HospitalFbvehdwWZCFVIAGNB2789-44-01 05:01:00 Test Item Value Reference Range Interpretation Comments Hgb (test code = Hgb) 12.9 14.0-18.0 [facility] HospitalAeerthtFRZGBWQNKC8920-09-25 05:01:00 Test Item Value Reference Range Interpretation Comments RBC (test code = RBC) 4.54 4.70-6.10 [facility] HospitalHjimwyfZLGUNZNTFZ6904-33-74 05:01:00 Test Item Value Reference Range Interpretation Comments WBC (test code = WBC) 14.0 3.7-10.4 [facility] HospitalTkwunhpZJGQXCNOZM2497-14-31 20:35:00 Test Item Value Reference Range Interpretation Comments RBC (test code = RBC) 5.17 4.70-6.10 [facility] HospitalScpcgbzGKUDVHGTSQ5683-61-95 20:35:00 Test Item Value Reference Range Interpretation Comments Hgb (test code = Hgb) 14.8 14.0-18.0 [facility] HospitalIrxeltnUSBQVWUDIT5831-04-94 20:35:00 Test Item Value Reference Range Interpretation Comments Platelet (test code = Platelet) 212 133-450 [facility] HospitalXsnwqdtKMSDDKARHJ5833-43-97 20:35:00 Test Item Value Reference Range Interpretation Comments WBC (test code = WBC) 20.3 3.7-10.4 [facility] HospitalSkdixkzYSTIROEKJA6768-30-19 20:35:00 Test Item Value Reference Range Interpretation Comments MPV (test code = MPV) 10.2 7.4-10.4 [facility] HospitalZlaaezlUGUSBDTQXQ4383-29-40 20:35:00 Test Item Value Reference Range Interpretation Comments MCV (test code = MCV) 87.7 80.0-94.0 [facility] HospitalSicfbtnZQZFFRGBTK5306-26-15 20:35:00 Test Item Value Reference Range Interpretation Comments Hct (test code = Hct) 45.4 42.0-54.0 [facility] HospitalZnjssmuTKAAGTCEUZ8772-20-17 20:35:00 Test Item Value Reference Range Interpretation Comments MCHC (test code = MCHC) 32.5 32.0-36.0 [facility] HospitalVmqvvmgXWVWMWPYMU5274-45-64 20:35:00 Test Item Value Reference Range Interpretation Comments MCH (test code = MCH) 28.5 pg 27.0-31.0 [facility] HospitalAtjalcyXYKHWBYIKC8813-44-53 20:35:00 Test Item Value Reference Range Interpretation Comments RDW (test code = RDW) 13.8 11.5-14.5 [facility] HospitalMqpiqpoLHHYGXAYKI2633-36-55 20:35:00 Test Item Value Reference Range Interpretation Comments Monocytes (test code = Monocytes) 8.6 2.0-12.0 [facility] HospitalBbzdkmaKSPYKDSNMB1292-74-90 20:35:00 Test Item Value Reference Range Interpretation Comments Eosinophils (test code = 0.2 See_Comment [A utomated message] The Eosinophils) system which ge nerated this result tra nsmitted reference range : <=4.0. The reference r mily was not used to int erpret this result as normal/abnormal . [facility] HospitalLcazjofIRWINJEHQC1922-71-00 20:35:00 Test Item Value Reference Range Interpretation Comments Basophils (test code = 0.2 See_Comment [Aut omated message] The Basophils) system which ge nerated this result tra nsmitted reference range : <=1.0. The reference r mily was not used to int erpret this result as normal/abnormal . [facility] HospitalOdenbpqMNOOIECKCP7031-30-23 20:35:00 Test Item Value Reference Range Interpretation Comments Segs-Bands # (test code = Segs-Bands #) 15.8 1.5-8.1 [facility] HospitalOgbsremELVGXFRXBZ9067-74-47 20:35:00 Test Item Value Reference Range Interpretation Comments Lymphocytes # (test code = Lymphocytes 2.7 1.0-5.5 #) [facility] HospitalUljvdybUOBSYLGWTV3102-79-24 20:35:00 Test Item Value Reference Range Interpretation Comments Monocytes # (test code 1.8 See_Comment [Aut omated message] The = Monocytes #) system which generated this result tra nsmitted reference range : <=0.8. The reference r mily was not used to int erpret this result as normal/abnormal . [facility] HospitalQgxmkwmLXCDWPIFLQ9239-10-48 20:35:00 Test Item Value Reference Range Interpretation Comments Segs (test code = Segs) 77.9 45.0-75.0 [facility] HospitalHfvaspfWIWYWBKQAX8671-03-60 20:35:00 Test Item Value Reference Range Interpretation Comments Lymphocytes (test code = Lymphocytes) 13.1 20.0-40.0 [facility] HospitalAswvcfmXHBNGKFRVX6329-05-42 20:35:00 Test Item Value Reference Range Interpretation Comments RBC (test code = RBC) 5.17 4.70-6.10 [facility] HospitalLmzgpheMCGFVWGZHR8100-60-66 20:35:00 Test Item Value Reference Range Interpretation Comments Hgb (test code = Hgb) 14.8 14.0-18.0 [facility] HospitalZcktjnmZQXFNELUHH4321-86-48 20:35:00 Test Item Value Reference Range Interpretation Comments Platelet (test code = Platelet) 212 133-450 [facility] HospitalVpeqalnCMCHVFSFUR7940-09-09 20:35:00 Test Item Value Reference Range Interpretation Comments WBC (test code = WBC) 20.3 3.7-10.4 [facility] HospitalZrxwneuAOVEAINUUM5636-13-53 20:35:00 Test Item Value Reference Range Interpretation Comments MPV (test code = MPV) 10.2 7.4-10.4 [facility] HospitalXuhzwoeZPVMDTQGQS7739-05-22 20:35:00 Test Item Value Reference Range Interpretation Comments MCV (test code = MCV) 87.7 80.0-94.0 [facility] HospitalQipkpxfYCYXUTJQTA4634-98-56 20:35:00 Test Item Value Reference Range Interpretation Comments Hct (test code = Hct) 45.4 42.0-54.0 [facility] HospitalIxxmtobWITEESHZDD3948-84-14 20:35:00 Test Item Value Reference Range Interpretation Comments MCHC (test code = MCHC) 32.5 32.0-36.0 [facility] HospitalCgfazbeXLUMBZVPEF0599-90-81 20:35:00 Test Item Value Reference Range Interpretation Comments MCH (test code = MCH) 28.5 pg 27.0-31.0 [facility] HospitalLzfalxyBNUBZONMLF7766-94-19 20:35:00 Test Item Value Reference Range Interpretation Comments RDW (test code = RDW) 13.8 11.5-14.5 [place] 858855-05-23 20:35:00 Test Item Value Reference Range Interpretation Comments Monocytes (test code = Monocytes) 8.6 2.0-12.0 [facility]wyz[facility]pVGPGUHDJIL5397-95-15 20:35:00 Test Item Value Reference Range Interpretation Comments Eosinophils (test code = Eosinophils) 0.2 <=4.0 [facility]OnqsfxyYIWSGDSCQG7452-55-91 20:35:00 Test Item Value Reference Range Interpretation Comments Basophils (test code = Basophils) 0.2 <=1.0 [facility]HovevenSWDGUOPIFG2214-31-38 20:35:00 Test Item Value Reference Range Interpretation Comments Segs-Bands # (test code = Segs-Bands #) 15.8 1.5-8.1 [facility] HospitalTfvkqejPBNUAZJEGZ8108-79-26 20:35:00 Test Item Value Reference Range Interpretation Comments Lymphocytes # (test code = Lymphocytes 2.7 1.0-5.5 #) [facility] HospitalLlgtbcdZJNBUHZKEH2592-42-97 20:35:00 Test Item Value Reference Range Interpretation Comments Monocytes # (test code = Monocytes #) 1.8 <=0.8 [facility] HospitalMbswrmnDWFEFNWYSO4410-40-61 20:35:00 Test Item Value Reference Range Interpretation Comments Segs (test code = Segs) 77.9 45.0-75.0 [facility]fugXEWDDTNZEX4958-20-66 20:35:00 Test Item Value Reference Range Interpretation Comments Lymphocytes (test code = Lymphocytes) 13.1 20.0-40.0 [employer] EAIDGWM0241-59-48 15:05:00 Test Item Value Reference Range Interpretation Comments ABO/Rh (test code = ABO/Rh) A POS [employer] [id number] 15:05:00 Test Item Value Reference Range Interpretation Comments Antibody Scrn (test Negative (07/22/14 code = Antibody Scrn) 10:05 AM) [employer] [id number] 15:05:00 Test Item Value Reference Range Interpretation Comments ABO/Rh (test code = ABO/Rh) A POS [employer] [id number] 15:05:00 Test Item Value Reference Range Interpretation Comments Antibody Scrn (test Negative (07/22/14 code = Antibody Scrn) 10:05 AM) [facility]2015-05-19 17:03:00 Test Item Value Reference Range Interpretation Comments eGFR (test code = eGFR) 83 [facility]2015-05-19 17:03:00 Test Item Value Reference Range Interpretation Comments Alk Phos (test code = Alk Phos) 91 39-136 [facility]2015-05-19 17:03:00 Test Item Value Reference Range Interpretation Comments Bili Total (test code = Bili Total) 0.4 0.2-1.3 [facility]2015-05-19 17:03:00 Test Item Value Reference Range Interpretation Comments Albumin Lvl (test code = Albumin Lvl) 4.0 3.5-5.0 [facility]2015-05-19 17:03:00 Test Item Value Reference Range Interpretation Comments ALT (test code = ALT) 58 See_Comment [Auto mated message] The system which ge nerated this result transmit lou reference range : <=65. The reference range was not used to interpr et this result as you l/abnormal. [facility]2015-05-19 17:03:00 Test Item Value Reference Range Interpretation Comments AST (test code = AST) 17 See_Comment [Auto mated message] The system which ge nerated this result transmit lou reference range : <=37. The reference range was not used to interpr et this result as you l/abnormal. [facility]2015-05-19 17:03:00 Test Item Value Reference Range Interpretation Comments CO2 (test code = CO2) 29 24-32 [facility]2015-05-19 17:03:00 Test Item Value Reference Range Interpretation Comments Calcium Lvl (test code = Calcium Lvl) 9.2 8.5-10.5 [facility]2015-05-19 17:03:00 Test Item Value Reference Range Interpretation Comments Total Protein (test code = Total 7.3 6.4-8.4 Protein) [facility]2015-05-19 17:03:00 Test Item Value Reference Range Interpretation Comments Sodium Lvl (test code = Sodium Lvl) 143 135-145 [facility]2015-05-19 17:03:00 Test Item Value Reference Range Interpretation Comments BUN (test code = BUN) 19 7-22 [place] [id number] 17:03:00 Test Item Value Reference Range Interpretation Comments Creatinine Lvl (test code = Creatinine 1.0 0.5-1.4 Lvl) [facility]2015-05-19 17:03:00 Test Item Value Reference Range Interpretation Comments Potassium Lvl (test code = Potassium 4.3 3.5-5.1 Lvl) [facility]2015-05-19 17:03:00 Test Item Value Reference Range Interpretation Comments Chloride Lvl (test code = Chloride Lvl) 106 95-109 [facility]2015-05-19 17:03:00 Test Item Value Reference Range Interpretation Comments Glucose Lvl (test code = Glucose Lvl) 87 70-99 [facility]2015-05-19 17:03:00 Test Item Value Reference Range Interpretation Comments A/G Ratio (test code = A/G Ratio) 1.2 0.7-1.6 [facility]2015-05-19 17:03:00 Test Item Value Reference Range Interpretation Comments AGAP (test code = AGAP) 12.3 10.0-20.0 [facility]2015-05-19 17:03:00 Test Item Value Reference Range Interpretation Comments B/C Ratio (test code = B/C Ratio) 19 6-25 [facility]2015-05-19 17:03:00 Test Item Value Reference Range Interpretation Comments Globulin (test code = Globulin) 3.3 2.0-4.0 [id number] 17:03:00 Test Item Value Reference Range Interpretation Comments Eosinophils # (test code 0.1 See_Comment [A utomated message] The = Eosinophils #) system whic h generated this result tra nsmitted reference range : <=0.5. The reference r mily was not used to int erpret this result as normal/abnormal . [facility] [id number] 17:03:00 Test Item Value Reference Range Interpretation Comments INR (test code = INR) 1.00 0.85-1.17 [facility] [id number] 17:03:00 Test Item Value Reference Range Interpretation Comments PT (test code = PT) 13.2 s 12.0-14.7 [place] [id number] 17:03:00 Test Item Value Reference Range Interpretation Comments PTT (test code = PTT) 33.7 s 22.9-35.8 [facility] AND [id number] 17:03:00 Test Item Value Reference Range Interpretation Comments UA Mucus (test code = UA Mucus) Few /LPF [facility] AND [id number] 17:03:00 Test Item Value Reference Range Interpretation Comments UA WBC (test code = no gt See_Comment [Automa lou message] The UA WBC) system which ge nerated this result transmit lou reference range : <=5. The reference range was not used to interpr et this result as you l/abnormal. [facility] AND [id number] 17:03:00 Test Item Value Reference Range Interpretation Comments UA Nitrite (test code Negative (07/20/14 12:03 = UA Nitrite) PM) [facility] AND [id number] 17:03:00 Test Item Value Reference Range Interpretation Comments UA Urobilinogen (test code = UA 0.2 0.1-1.0 Urobilinogen) [facility] AND [id number] 17:03:00 Test Item Value Reference Range Interpretation Comments UA pH (test code = UA pH) 5.5 1 5.0-8.0 [facility] AND [id number] 17:03:00 Test Item Value Reference Range Interpretation Comments UA Leuk Est (test Negative (07/20/14 12:03 code = UA Leuk Est) PM) [facility] AND [id number] 17:03:00 Test Item Value Reference Range Interpretation Comments UA Glucose (test code = UA Negative mg/dL Glucose) [facility] AND [id number] 17:03:00 Test Item Value Reference Range Interpretation Comments UA Protein (test code = UA Negative mg/dL Protein) [facility] AND [id number] 17:03:00 Test Item Value Reference Range Interpretation Comments UA Bili (test code = Negative *NA*(07/20/14 UA Bili) 12:03 PM) [facility] AND [id number] 17:03:00 Test Item Value Reference Range Interpretation Comments UA Blood (test code = Negative (07/20/14 12:03 UA Blood) PM) [facility] AND [id number] 17:03:00 Test Item Value Reference Range Interpretation Comments UA Ketones (test code = UA Negative mg/dL Ketones) [facility] AND [id number] 17:03:00 Test Item Value Reference Range Interpretation Comments UA Color (test code = Yellow *NA*(07/20/14 UA Color) 12:03 PM) [facility] AND [id number] 17:03:00 Test Item Value Reference Range Interpretation Comments UA Turbidity (test code = Clear (07/20/14 12:03 UA Turbidity) PM) [facility] AND [id number] 17:03:00 Test Item Value Reference Range Interpretation Comments UA Spec Grav (test code = UA Spec 1.020 1 Grav) [facility] AND [id number] 17:03:00 Test Item Value Reference Range Interpretation Comments UA Sq Epi (test code = None Seen (07/20/14 UA Sq Epi) 12:03 PM) [facility]2015-05-19 17:03:00 Test Item Value Reference Range Interpretation Comments eGFR (test code = eGFR) 83 [facility]2015-05-19 17:03:00 Test Item Value Reference Range Interpretation Comments Alk Phos (test code = Alk Phos) 91 39-136 [facility]2015-05-19 17:03:00 Test Item Value Reference Range Interpretation Comments Bili Total (test code = Bili Total) 0.4 0.2-1.3 [facility]2015-05-19 17:03:00 Test Item Value Reference Range Interpretation Comments Albumin Lvl (test code = Albumin Lvl) 4.0 3.5-5.0 [facility]2015-05-19 17:03:00 Test Item Value Reference Range Interpretation Comments ALT (test code = ALT) 58 <=65 [facility]2015-05-19 17:03:00 Test Item Value Reference Range Interpretation Comments AST (test code = AST) 17 <=37 [facility]2015-05-19 17:03:00 Test Item Value Reference Range Interpretation Comments CO2 (test code = CO2) 29 24-32 [facility]2015-05-19 17:03:00 Test Item Value Reference Range Interpretation Comments Calcium Lvl (test code = Calcium Lvl) 9.2 8.5-10.5 [facility]2015-05-19 17:03:00 Test Item Value Reference Range Interpretation Comments Total Protein (test code = Total 7.3 6.4-8.4 Protein) [facility]2015-05-19 17:03:00 Test Item Value Reference Range Interpretation Comments Sodium Lvl (test code = Sodium Lvl) 143 135-145 [facility]2015-05-19 17:03:00 Test Item Value Reference Range Interpretation Comments BUN (test code = BUN) 09-22 [facility]2015-05-19 17:03:00 Test Item Value Reference Range Interpretation Comments Creatinine Lvl (test code = Creatinine 1.0 0.5-1.4 Lvl) [facility]2015-05-19 17:03:00 Test Item Value Reference Range Interpretation Comments Potassium Lvl (test code = Potassium 4.3 3.5-5.1 Lvl) [facility]2015-05-19 17:03:00 Test Item Value Reference Range Interpretation Comments Chloride Lvl (test code = Chloride Lvl) 106 95-109 [facility]2015-05-19 17:03:00 Test Item Value Reference Range Interpretation Comments Glucose Lvl (test code = Glucose Lvl) 87 70-99 [facility]2015-05-19 17:03:00 Test Item Value Reference Range Interpretation Comments A/G Ratio (test code = A/G Ratio) 1.2 0.7-1.6 [facility]2015-05-19 17:03:00 Test Item Value Reference Range Interpretation Comments AGAP (test code = AGAP) 12.3 10.0-20.0 [facility]2015-05-19 17:03:00 Test Item Value Reference Range Interpretation Comments B/C Ratio (test code = B/C Ratio) 08-26 [facility]2015-05-19 17:03:00 Test Item Value Reference Range Interpretation Comments Globulin (test code = Globulin) 3.3 2.0-4.0 [id number] 17:03:00 Test Item Value Reference Range Interpretation Comments Eosinophils # (test code = Eosinophils 0.1 <=0.5 #) [facility] [id number] 17:03:00 Test Item Value Reference Range Interpretation Comments INR (test code = INR) 1.00 0.85-1.17 [facility] [id number] 17:03:00 Test Item Value Reference Range Interpretation Comments PT (test code = PT) 13.2 s 12.0-14.7 [facility] [id number] 17:03:00 Test Item Value Reference Range Interpretation Comments PTT (test code = PTT) 33.7 s 22.9-35.8 [facility] AND [id number] 17:03:00 Test Item Value Reference Range Interpretation Comments UA Mucus (test code = UA Mucus) Few /LPF [facility] AND [id number] 17:03:00 Test Item Value Reference Range Interpretation Comments UA WBC (test code = UA WBC) no gt <=5 [facility] AND [id number] 17:03:00 Test Item Value Reference Range Interpretation Comments UA Nitrite (test code Negative (07/20/14 12:03 = UA Nitrite) PM) [facility] AND [id number] 17:03:00 Test Item Value Reference Range Interpretation Comments UA Urobilinogen (test code = UA 0.2 0.1-1.0 Urobilinogen) [facility] AND [id number] 17:03:00 Test Item Value Reference Range Interpretation Comments UA pH (test code = UA pH) 5.5 1 5.0-8.0 [facility] AND [id number] 17:03:00 Test Item Value Reference Range Interpretation Comments UA Leuk Est (test Negative (07/20/14 12:03 code = UA Leuk Est) PM) [facility] AND [id number] 17:03:00 Test Item Value Reference Range Interpretation Comments UA Glucose (test code = UA Negative mg/dL Glucose) [facility] AND [id number] 17:03:00 Test Item Value Reference Range Interpretation Comments UA Protein (test code = UA Negative mg/dL Protein) [facility] AND [id number] 17:03:00 Test Item Value Reference Range Interpretation Comments UA Bili (test code = Negative *NA*(07/20/14 UA Bili) 12:03 PM) [facility] [id number] 17:03:00 Test Item Value Reference Range Interpretation Comments UA Blood (test code = Negative (07/20/14 12:03 UA Blood) PM) [facility] AND [id number] 17:03:00 Test Item Value Reference Range Interpretation Comments UA Ketones (test code = UA Negative mg/dL Ketones) [facility] AND [id number] 17:03:00 Test Item Value Reference Range Interpretation Comments UA Color (test code = Yellow *NA*(07/20/14 UA Color) 12:03 PM) [facility] AND [id number] 17:03:00 Test Item Value Reference Range Interpretation Comments UA Turbidity (test code = Clear (07/20/14 12:03 UA Turbidity) PM) [facility] AND [id number] 17:03:00 Test Item Value Reference Range Interpretation Comments UA Spec Grav (test code = UA Spec 1.020 1 Grav) [facility] AND [id number] 17:03:00 Test Item Value Reference Range Interpretation Comments UA Sq Epi (test code = None Seen (07/20/14 UA Sq Epi) 12:03 PM) [facility]
[2023-01-01 14:21] LABS: Absolute Lymphocytes (CBC) 2.6 K/uL (0.7-4.9); Hematocrit 42.6 % (39.6-49.0); Lymphocytes % 28.9 % (15.3-44.8); MCV 86.9 fL (80-100); MPV 9.8 fL (7.6-11.3); Platelets 208 thou/uL (152-406)
[2023-01-01 14:26] LABS: Protime INR 1.05
[2023-01-01] MEDS ORDERED: ASPIRIN 81 MG CHEWABLE TABLET ONE (14:33)
[2023-01-01] MEDS ORDERED: NA CHLORIDE 0.9% 1,000 ML ONE (14:33)
[2023-01-01 14:40] LABS: ALT/SGPT 39 U/L (16-61); AST/SGOT 17 U/L (15-37); Albumin 3.6 g/dL (3.4-5.0); Alkaline Phosphatase 73 U/L (45-117); BUN Blood Urea Nitrogen 15 mg/dL (7-18); Bicarbonate 24 mEq/L (21-32); Bilirubin Total 0.4 mg/dL (0.2-1.0); Glomerular Filtration Rate 57 ml/min (=/>90); Glucose Level 300 mg/dL (74-106); Lipase 52 U/L (13-75); Magnesium 1.9 mg/dL (1.6-2.4); NT PRO-BNP 84 pg/mL (<125); Potassium 3.9 mEq/L (3.5-5.1); Protein, Total 7.3 g/dL (6.4-8.2); Sodium Level 134 mEq/L (136-145)
[2023-01-01 14:45] LABS: Bilirubin Direct < 0.1 mg/dL (0-0.2); Bilirubin Indirect, Calculated ND mg/dL (0.2-0.8)
--- NOTE | 2023-01-01 15:15 | RAD REPORT ---
EXAM DESCRIPTION: Rafa Single View01/01/2023 2:49 pm CLINICAL HISTORY: CHEST PAIN TECHNIQUE: Portable AP view of the chest. FINDINGS: The lungs are clear. No pneumothorax or effusion. The cardiomediastinal contours are unre markable. IMPRESSION: No acute cardiopulmonary process.
--- NOTE | 2023-01-01 16:38 | EDPHYS ---
Physician Documentation [facility] Name: Rigo Gonzalez Age: 67 yrs Sex: Male : 1955 Arrival Date: 01/01/2023 Time: 13:51 Bed 13 Private MD: SOPHIA Physician Germán Mendez HPI: 01/01 16:28 This 67 yrs old Male presents to ER via Ambulatory with complaints of Chest tila Pain. 16:28 The patient or guardian reports chest pain that is located primarily in the substernal tila area. Onset: 2 day(s) ago. The pain does not radiate. Associated signs and symptoms: Pertinent positives: dizziness, near-syncope. The chest pain is described as a heaviness, a pressure. Duration: The patient or guardian reports multiple episodes, with no pattern. Modifying factors: The symptoms are alleviated by nothing. the symptoms are aggravated by nothing. Severity of pain: At its worst the pain was mild moderate in the emergency department the pain has improved mildly. The patient has experienced similar episodes in the past, multiple times. Historical: - Allergies: 14:07 No Known Allergies; jl7 - PMHx: 14:07 Diabetes - NIDDM; Hypertension; Hypothyroidism; neuropathy; Vertigo; jl7 - PSHx: 14:07 Coronary artery bypass graft; triple; jl7 - Immunization history:: Adult Immunizations up to date, Client reports receiving the 2nd dose of the Covid vaccine, Flu vaccine is up to date. - Social history:: Smoking status: Patient denies any tobacco usage or history of. - Family history:: not pertinent. ROS: 16:31 Constitutional: Negative for fever, chills, and weight loss, Eyes: Negative for injury, tila pain, redness, and discharge, ENT: Negative for injury, pain, and discharge, Neck: Negative for injury, pain, and swelling, Respiratory: Negative for shortness of breath, cough, wheezing, and pleuritic chest pain, Abdomen/GI: Negative for abdominal pain, nausea, vomiting, diarrhea, and constipation, Back: Negative for injury and pain, : Negative for injury, bleeding, discharge, and swelling, MS/Extremity: Negative for injury and deformity, Skin: Negative for injury, rash, and discoloration, Neuro: Negative for headache, weakness, numbness, tingling, and seizure, Psych: Negative for depression, anxiety, suicide ideation, homicidal ideation, and hallucinations, Allergy/Immunology: Negative for hives, rash, and allergies, Endocrine: Negative for neck swelling, polydipsia, polyuria, polyphagia, and marked weight changes, Hematologic/Lymphatic: Negative for swollen nodes, abnormal bleeding, and unusual bruising, 16:31 Cardiovascular: Positive for chest pain, of the chest, Exam: 16:31 Constitutional: This is a well developed, well nourished patient who is awake, alert, tila and in no acute distress. Head/Face: Normocephalic, atraumatic. Eyes: Pupils equal round and reactive to light, extra-ocular motions intact. Lids and lashes normal. Conjunctiva and sclera are non-icteric and not injected. Cornea within normal limits. Periorbital areas with no swelling, redness, or edema. ENT: Nares patent. No nasal discharge, no septal abnormalities noted. Tympanic membranes are normal and external auditory canals are clear. Oropharynx with no redness, swelling, or masses, exudates, or evidence of obstruction, uvula midline. Mucous membranes moist. Neck: Trachea midline, no thyromegaly or masses palpated, and no cervical lymphadenopathy. Supple, full range of motion without nuchal rigidity, or vertebral point tenderness. No Meningismus. Chest/axilla: Normal chest wall appearance and motion. Nontender with no deformity. No lesions are appreciated. Cardiovascular: Regular rate and rhythm with a normal S1 and S2. No gallops, murmurs, or rubs. Normal PMI, no JVD. No pulse deficits. Respiratory: Lungs have equal breath sounds bilaterally, clear to auscultation and percussion. No rales, rhonchi or wheezes noted. No increased work of breathing, no retractions or nasal flaring. Abdomen/GI: Soft, non-tender, with normal bowel sounds. No distension or tympany. No guarding or rebound. No evidence of tenderness throughout. Back: No spinal tenderness. No costovertebral tenderness. Full range of motion. Male : Normal genitalia with no discharge or lesions. Skin: Warm, dry with normal turgor. Normal color with no rashes, no lesions, and no evidence of cellulitis. MS/ Extremity: Pulses equal, no cyanosis. Neurovascular intact. Full, normal range of motion. Neuro: Awake and alert, GCS 15, oriented to person, place, time, and situation. Cranial nerves II-XII grossly intact. Motor strength 5/5 in all extremities. Sensory grossly intact. Cerebellar exam normal. Normal gait. Psych: Awake, alert, with orientation to person, place and time. Behavior, mood, and affect are within normal limits. 16:31 ECG was reviewed by the Attending Physician. Vital Signs: 14:03 BP 169 / 97; Pulse 88; Resp 17; Temp 97.7; Pulse Ox 98% ; Weight 127.01 kg; Height 6 jl7 ft. 1 in. ; Pain 10/10; 16:00 BP 146 / 83; Pulse 82; Resp 20; Pulse Ox 97% ; Pain 10/10; jl7 19:00 Pain 8/10; nj1 19:05 BP 146 / 79; Pulse 89; Resp 14; Pulse Ox 96% ; Pain 8/10; nj1 19:44 BP 132 / 82; Pulse 80; Resp 15; Pulse Ox 96% ; Pain 8/10; nj1 14:03 Body Mass Index 36.94 (127.01 kg, 185.42 cm) [facility] 14:03 Pain Scale: Adult jl7 16:00 Pain Scale: Adult jl7 19:00 Pain Scale: Adult nj1 19:05 Pain Scale: Adult nj1 19:44 Pain Scale: Adult nj1 MDM: 14:03 Patient medically screened. tila 16:31 Differential diagnosis: abnormal EKG, acute myocardial infarction, acute pericarditis, tila anxiety, coronary artery disease chest wall pain, congestive heart failure Cholelithiasis gastritis, herpes zoster, hiatal hernia, pancreatitis, peptic ulcer disease, pleurisy, pneumonia, pneumothorax, pulmonary embolus, stable angina, thoracic aortic disection, unstable angina. HEART Score: History: Moderately Suspicious (1), ECG: Normal (0), Age: > or = 65 years (2), Risk Factors: > or = 3 Risk factors for atherosclerotic disease (2), [Hypercholesterolemia] [Hypertension] [DM] [+ Family HX] [Obesity] Troponin: < or = 1 x Normal Limit (0). The patient was given aspirin in the Emergency Department. LIBORIO Risk Score: 1 - patient's age is greater or equal to 65 years, 1 - Three or more CAD risk factors, 1- Known CAD, 1 - ASA use in past 7 days, TOTAL SCORE = 4. Data reviewed: vital signs, nurses notes, lab test result(s), EKG, radiologic studies, plain films. Consideration of Admission/Observation Patient was admitted/placed on observation. Escalation of care including admission/observation considered. I considered the following discharge prescriptions or medication management in the emergency department Medications were administered in the Emergency Department. See MAR. Independent interpretation of the following test(s) in the Emergency Department EKG: See my EKG interpretation above. Test considered but Not performed: Ultrasound no 2 d echo. Historians other than the Patient: Family Member: , son, daughter. Care significantly affected by the following chronic conditions: Diabetes, Hypertension, Obesity. Counseling: I had a detailed discussion with the patient and/or guardian regarding the historical points, exam findings, and any diagnostic results supporting the discharge/admit diagnosis, lab results, radiology results, the need for further work-up and treatment in the hospital. 01/01 14:04 Order name: Basic Metabolic Panel; Complete Time: 16:26 [facility] 01/01 14:04 Order name: CBC with Diff; Complete Time: 16:26 [facility] 01/01 14:04 Order name: LFT's; Complete Time: 16:26 [facility] 01/01 14:04 Order name: Magnesium; Complete Time: 16:26 [facility] 01/01 14:04 Order name: NT PRO-BNP; Complete Time: 16:26 [facility] 01/01 14:04 Order name: PT-INR; Complete Time: 16:26 [facility] 01/01 14:04 Order name: Troponin HS; Complete Time: 16:26 [facility] 01/01 14:04 Order name: Lipase; Complete Time: 16:26 [facility] 01/01 17:25 Order name: Ptt, Activated jl7 01/01 18:15 Order name: PTT, Activated Partial Thromb [facility] 01/01 19:23 Order name: Glucose, Ancillary Testing [facility] 01/01 14:04 Order name: XRAY Chest (1 view); Complete Time: 16:26 [facility] 01/01 14:04 Order name: EKG; Complete Time: 14:05 [facility] 01/01 14:04 Order name: Cardiac monitoring; Complete Time: 14:08 [facility] 01/01 14:04 Order name: EKG - Nurse/Tech; Complete Time: 14:08 [facility] 01/01 14:04 Order name: IV Saline Lock; Complete Time: 14:08 [facility] 01/01 14:04 Order name: Labs collected and sent; Complete Time: 14: [facility] 01/01 14:04 Order name: O2 Per Protocol; Complete Time: : [facility] 01/01 14:04 Order name: O2 Sat Monitoring; Complete Time: 14: [facility] EC: Rate is 85 beats/min. Rhythm is regular. QRS [place] is Normal. [place] interval is normal. QRS tila interval is normal. QT interval is normal. No Q waves. T waves are Normal. No ST changes noted. Clinical impression: Normal ECG and No evidence of ischemia. Interpreted by me. Reviewed by me. Administered Medications: 14: Drug: Aspirin PO Chewable Tablet 324 mg PO once; 81 mg tablets x 4 Route: PO; nj1 19:43 Follow up: Response: No adverse reaction nj1 14:22 Drug: NS 0.9% IV 1000 ml IV at 125 ml/hr continuous Route: IV; Rate: 125 ml/hr; Site: [facility] right antecubital; 19:42 Follow up: IV Status: Infusion continued upon admission; IV Intake: 650ml nj1 17:28 Drug: Ondansetron IVP 4 mg IVP once; over 2 minutes Route: IVP; Site: right antecubital;nj1 19:40 Follow up: Response: No adverse reaction nj1 17:30 Drug: Famotidine IVP 20 mg IVP once; dilute with 10 mL 0.9% NaCl; give over 2 minutes nj1 Route: IVP; Site: right antecubital; 19:41 Follow up: Response: No adverse reaction nj1 19:42 Follow up: Response: No adverse reaction nj1 17:32 Drug: morphine IVP or IV 4 mg IVP once over 4 mins Route: IVP; Infused Over: 4 mins; nj1 Site: right antecubital; 19:00 Follow up: Pain 8/10 Adult; Response: No adverse reaction; Pain is decreased nj1 17:32 Drug: Insulin Regular Human IVP 10 units IVP once {Co-Signature: aiyana (Haley Stern [address] АННА).} Route: IVP; Site: right antecubital; 19:40 Follow up: Response: No adverse reaction; Blood sugar is lowered nj1 17:40 Drug: Heparin (VT-Bolus No thrombolytic) - HEParin IVP 60 units/kg IVP once; Max 5000 nj1 units {Co-Signature: aiyana (Haley Stern RN).} Route: IVP; Site: left forearm; 19:40 Follow up: Response: No adverse reaction nj1 17:44 Drug: Heparin (VT Drip) 12 units/kg/[place] - ([place] [address] units, D5W IV 500 ml) IV at nj1 calculated rate Per protocol; Max initial rate 1000 units/hr {Co-Signature: Haley Blas RN).} Route: IV; Rate: calculated rate; Site: left forearm; 19:43 Follow up: Response: No adverse reaction; IV Status: Infusion continued upon admission; nj1 IV Intake: 40ml Disposition Summary: 01/01/23 16:37 Hospitalization Ordered Notes: Hospitalization Status: Observation tila Provider: Piotr Mckinnon cha Location: Telemetry/MedSurg (observation) tila Condition: Fair tila Problem: an ongoing problem tila Symptoms: have worsened tila Bed/Room Type: Standard tila Room Assignment: 219(01/01/23 18:31) bd Diagnosis - Angina pectoris, unspecified tila - Chest pain, unspecified tila - Type 2 diabetes mellitus with hyperglycemia tila - Essential (primary) hypertension tila - Obesity, unspecified tila Forms: - Medication Reconciliation Form tila - SBAR form tila - Leadership Thank You Letter tila Signatures: Dispatcher [employer] Marie Abrams Corey, MD MD cha Leal, Jahala RN RN jl7 Marcy Martinez RN RN nj1 Haley Stern RN [id number] Corrections: (The following items were deleted from the chart) 18:31 16:37 tila bd
--- NOTE | 2023-01-01 16:38 | ER ---
Nurse's Notes [facility] Name: Rigo Gonzalez Age: 67 yrs Sex: Male : 1955 Arrival Date: 01/01/2023 Time: 13:51 Bed 13 Private MD: Diagnosis: Angina pectoris, unspecified;Chest pain, unspecified;Type 2 diabetes mellitus with hyperglycemia;Essential (primary) hypertension;Obesity, unspecified Presentation: 01/01 14:03 Chief complaint: Patient states: Midsternal CP x 6 months, SOB, reports Dr. Stockton was jl7 supposed to do a cardiac cath today but something happened with insurance and the CP and SOB was worse today. Coronavirus screen: At this time, the client does not indicate any symptoms associated with coronavirus-19. Ebola Screen: No symptoms or risks identified at this time. Initial Sepsis Screen: Does the patient meet any 2 criteria? No. Patient's initial sepsis screen is negative. Does the patient have a suspected source of infection? No. Patient's initial sepsis screen is negative. Risk Assessment: Do you want to hurt yourself or someone else? Patient reports no desire to harm self or others. Onset of symptoms was June 2022. 14:03 Method Of Arrival: Ambulatory [facility] 14:03 Acuity: HESHAM 2 jl7 Triage Assessment: 14:07 General: Appears in no apparent distress. uncomfortable, well groomed, well developed, jl7 Behavior is cooperative, anxious, restless. Pain: Complains of pain in mid-sternal area Pain currently is 10 out of 10 on a pain scale. Cardiovascular: Patient's skin is warm and dry. Historical: - Allergies: 14:07 No Known Allergies; jl7 - PMHx: 14:07 Diabetes - NIDDM; Hypertension; Hypothyroidism; neuropathy; Vertigo; jl7 - PSHx: 14:07 Coronary artery bypass graft; triple; jl7 - Immunization history:: Adult Immunizations up to date, Client reports receiving the 2nd dose of the Covid vaccine, Flu vaccine is up to date. - Social history:: Smoking status: Patient denies any tobacco usage or history of. - Family history:: not pertinent. Screenin:06 [facility] ED Fall Risk Assessment (Adult) Score/Fall Risk Level 0 - 2 = Low Risk nj1 Oriented to surroundings, Maintained a safe environment, Hourly rounding (assess needs \T\ fall precautionary measures) done. Abuse screen: Denies threats or abuse. Denies injuries from another. Nutritional screening: No deficits noted. Tuberculosis screening: No symptoms or risk factors identified. Assessment: 14:00 General: Appears in no apparent distress. uncomfortable, Behavior is cooperative, nj1 anxious. Pain: Complains of pain in chest Pain does not radiate. Pain began 6 years ago, worse over the past few days. 14:00 Neuro: Level of Consciousness is awake, alert, obeys commands, Oriented to person, nj1 place, time, situation. Cardiovascular: Reports chest pain, Patient's skin is warm and dry. Chest pain. Respiratory: Airway is patent Respiratory effort is even, unlabored. 16:00 Reassessment: Patient appears in no apparent distress at this time. No changes from [facility] previously documented assessment. Patient and/or family updated on plan of care and expected duration. Pain level reassessed. Patient is alert, oriented x 3, equal unlabored respirations, skin warm/dry/pink. 17:30 Reassessment: Patient appears in no apparent distress at this time. No changes from [facility] previously documented assessment. Patient and/or family updated on plan of care and expected duration. Pain level reassessed. Patient is alert, oriented x 3, equal unlabored respirations, skin warm/dry/pink. 19:06 Reassessment: Patient appears in no apparent distress at this time. Patient and/or nj1 family updated on plan of care and expected duration. Pain level reassessed. Patient is alert, oriented x 3, equal unlabored respirations, skin warm/dry/pink. Patient states feeling better. Vital Signs: 14:03 BP 169 / 97; Pulse 88; Resp 17; Temp 97.7; Pulse Ox 98% ; Weight 127.01 kg; Height 6 jl7 ft. 1 in. ; Pain 10/10; 16:00 BP 146 / 83; Pulse 82; Resp 20; Pulse Ox 97% ; Pain 10/10; jl7 19:00 Pain 8/10; nj1 19:05 BP 146 / 79; Pulse 89; Resp 14; Pulse Ox 96% ; Pain 8/10; nj1 19:44 BP 132 / 82; Pulse 80; Resp 15; Pulse Ox 96% ; Pain 8/10; nj1 14:03 Body Mass Index 36.94 (127.01 kg, 185.42 cm) jl7 14:03 Pain Scale: Adult jl7 16:00 Pain Scale: Adult jl7 19:00 Pain Scale: Adult nj1 19:05 Pain Scale: Adult nj1 19:44 Pain Scale: Adult vt1 ED Course: 14:03 Patient arrived in ED. [facility] 14:03 Germán Mendez MD is Attending Physician. [facility] 14:05 Marcy Martinez, RN is Primary Nurse. nj1 14:06 Triage completed. jl7 14:07 Arm band placed on right wrist. jl7 14:08 Initial lab(s) drawn, by [facility], sent to lab. Inserted saline lock: 20 gauge in right [facility] antecubital area, using aseptic technique. Blood collected. Patient maintains SpO2 saturation greater than 95% on room air. 14:09 EKG done, by ED staff, reviewed by Germán Mendez MD. [facility] 14:30 Patient has correct armband on for positive identification. Bed in low position. Call vt1 light in reach. Adult w/ patient. Provided Education on: call light, fall precautions. Client placed on continuous cardiac and pulse oximetry monitoring. NIBP monitoring applied. 14:51 XRAY Chest (1 view) In Process Unspecified. EDMS 16:34 Piotr Mckinnon is Hospitalizing Provider. [facility] 19:38 No provider procedures requiring assistance completed. Patient admitted, IV remains in [facility] place. Administered Medications: 14:22 Drug: Aspirin PO Chewable Tablet 324 mg PO once; 81 mg tablets x 4 Route: PO; [facility] 19:43 Follow up: Response: No adverse reaction [facility] 14:22 Drug: NS 0.9% IV 1000 ml IV at 125 ml/hr continuous Route: IV; Rate: 125 ml/hr; Site: [facility] right antecubital; 19:42 Follow up: IV Status: Infusion continued upon admission; IV Intake: 650ml [facility] 17:28 Drug: Ondansetron IVP 4 mg IVP once; over 2 minutes Route: IVP; Site: right antecubital;[facility] 19:40 Follow up: Response: No adverse reaction [facility] 17:30 Drug: Famotidine IVP 20 mg IVP once; dilute with 10 mL 0.9% NaCl; give over 2 minutes [facility] Route: IVP; Site: right antecubital; 19:41 Follow up: Response: No adverse reaction nj1 19:42 Follow up: Response: No adverse reaction nj1 17:32 Drug: morphine IVP or IV 4 mg IVP once over 4 mins Route: IVP; Infused Over: 4 mins; nj1 Site: right antecubital; 19:00 Follow up: Pain 8/10 Adult; Response: No adverse reaction; Pain is decreased nj1 17:32 Drug: Insulin Regular Human IVP 10 units IVP once {Co-Signature: aiyana (Haley Stern RN).} Route: IVP; Site: right antecubital; 19:40 Follow up: Response: No adverse reaction; Blood sugar is lowered nj1 17:40 Drug: Heparin (DE-Bolus No thrombolytic) - HEParin IVP 60 units/kg IVP once; Max 5000 nj1 units {Co-Signature: aiyana (Haley Stern RN).} Route: IVP; Site: left forearm; 19:40 Follow up: Response: No adverse reaction nj1 17:44 Drug: Heparin ([place] Drip) 12 units/kg/[place] - ([place] [address] units, D5W IV 500 ml) IV at nj1 calculated rate Per protocol; Max initial rate 1000 units/hr {Co-Signature: aiyana (Haley Stern RN).} Route: IV; Rate: calculated rate; Site: left forearm; 19:43 Follow up: Response: No adverse reaction; IV Status: Infusion continued upon admission; nj1 IV Intake: 40ml Medication: 19:39 VIS not applicable for this client. nj1 Intake: 19:42 IV: 650ml; Total: 650ml. nj1 19:43 IV: 40ml; Total: 690ml. nj1 Outcome: 16:37 Decision to Hospitalize by Provider. tila 19:39 Admitted to Med/surg accompanied by tech, family with patient, via wheelchair, room nj1 219, with oxygen, Report called to Judy JJ 19:39 Condition: stable 19:39 Instructed on the need for admit, 20:28 Patient left the ED. [facility] Signatures: Dispatcher [employer] EDGermán Trejo MD MD cha Leal, Jahala, RN RN jl7 Marcy Martinez RN RN nj1 Breneman, Mary Beth RN [id number]
--- NOTE | 2023-01-01 16:57 | P.HP ---
Certification for Inpatient Patient admitted to: Observation With expected LOS: <2 Midnights Patient will require the following post-hospital care: None Practitioner: I am a practitioner with admitting privileges, knowledge of patient current condition, hospital course, and medical plan of care. Services: Services provided to patient in accordance with Admission requirements found in Title 42 Section 412.3 of the Code of Federal Regulations Patient History Date of Service: 01/01/23 Reason for admission: Chest pain History of Present Illness: 67-year-old male with a past medical history of hypertension, hyperlipidemia, diabetes, neuropathy, vertigo, presents to the emergency room with chest pain. He reports chest pain is substernal, 6 7 out of 10. Is constant he reports chest pain is associated with shortness of breath. He reports shortness of breath is worse with exertion. He denies edema, dizziness, cough, fever, recent infection. Plan to admit for chest pain rule out [place]. Obesity, diabetes, he reports having recent abnormal stress test. Sees Dr. Skelton for cardiology. ER course EKG Rate is 85 beats/min. Rhythm is regular. QRS [place] is Normal. CT interval is normal. QRS denies for about 1 month history interval is normal. QT interval is normal. No Q waves. T waves are Normal. No ST changes noted. Clinical impression: Normal ECG and No evidence of ischemia. Laboratory evaluation troponin is normal 8.0, BNP normal at 84, CBC unremarkable. Chest x- ray no acute: Coronary process Allergies No Known Allergies Allergy (Verified 12/21/22 08:36) Home Medications: Aspirin 81 mg PO DAILY 04/01/18 Atorvastatin Calcium [Lipitor] 80 mg PO BEDTIME 04/01/18 Fenofibrate Nanocrystallized [Fenofibrate] 160 mg PO DAILY 04/01/18 Levothyroxine Sodium 175 mcg PO DAILY 04/01/18 Metformin HCl [Glucophage*] 500 mg PO BIDWM 04/01/18 Metoprolol Tartrate [Lopressor*] 1 tab PO BID 04/01/18 Torsemide [Demadex*] 20 mg PO M,W,F 04/01/18 clonazePAM [Clonazepam] 2 mg PO BEDTIME 04/01/18 lisinopriL [Prinivil*] 10 mg PO DAILY 04/01/18 - Past Medical/Surgical History Diabetic: Yes -: hyperlipidemia -: hypertension -: cad -: insomnia -: thyroid -: niddm -: neuropathy -: vertigo -: cabg x 2 (6 months ago) -: back surgeries - Family History Mother -: Diabetes Father -: Heart disease - Social History Alcohol use: No CD- Drugs: No Caffeine use: Yes Review of Systems 10-point ROS is otherwise unremarkable Physical Examination - Physical Exam General: Alert, In no apparent distress, Oriented x3, Obese HEENT: Atraumatic, Normocephalic, PERRLA Neck: Supple, 2+ carotid pulse no bruit, JVD not distended Respiratory: Clear to auscultation bilaterally, Normal air movement Cardiovascular: No edema, Normal pulses, Regular rate/rhythm Capillary refill: <2 Seconds Gastrointestinal: Normal bowel sounds, Soft and benign Musculoskeletal: No clubbing, No swelling Integumentary: No rashes, No breakdown Neurological: Normal speech, Normal strength at 5/5 x4 extr - Studies Laboratory Data (last 24 hrs) 01/01/23 01/01/23 01/01/23 14:08 14:08 14:08 WBC 9.10 Hgb 14.3 Hct 42.6 Plt Count 208 PT 11.5 INR 1.05 Sodium 134 L Potassium 3.9 BUN 15 Creatinine 1.37 H Glucose 300 H Magnesium 1.9 Total Bilirubin 0.4 AST 17 ALT 39 Alkaline Phosphatase 73 Lipase 52 Assessment and Plan - Plan Assessment plan Chest pain rule out [place] Cardiology consult, trend troponin, telemetry he reports having recent abnormal stress test. Lipid panel in a.m. sees Dr. Stockton for cardiology. Aspirin, as needed analgesics, beta-blockers, as needed nitro, EKG Rate is 85 beats/min. Rhythm is regular. QRS [place] is Normal. CT interval is normal. QRS denies for about 1 month history interval is normal. QT interval is normal. No Q waves. T waves are Normal. No ST changes noted. Clinical impression: Normal ECG and No evidence of ischemia. troponin is normal 8.0, BNP normal at 84 Chest x-ray no acute: Coronary process Obesity Diabetes hypertension hyperlipidemia vertigo Resume appropriate home meds diabetes neuropathy Accu-Cheks, sliding scale insulin DVT prophylaxis Lovenox Diet n.p.o. after midnight Full code Discharge Plan: Home Plan to discharge in: 24 Hours - Advance Directives Does patient have a Living Will: No Does patient have a Durable POA for Healthcare: No - Code Status/Comfort Care Code Status: Full Code Physician Review: Patient Assessed, Agree with Above Assessment and Plan Critical Care: No Time Spent Managing Pts Care (In Minutes): 50
[2023-01-01] MEDS ORDERED: HEPARIN 5000 UNIT/ML 1 ML VIAL ONE (17:34)
[2023-01-01] MEDS ORDERED: MORPHINE 4 MG/ML SYR ONE (17:35)
[2023-01-01] MEDS ORDERED: ONDANSETRON 4 MG/2 ML VIAL ONE (17:35)
[2023-01-01] MEDS ORDERED: HEPARIN/D5W 25,000 UNIT/500 ML BAG IV ONE (17:36)
[2023-01-01] MEDS ORDERED: FAMOTIDINE 20 MG/2 ML VIAL IV ONE (17:36)
[2023-01-01] MEDS ORDERED: INSULIN REGULAR (HUMAN) 100 UNIT/ML ONE (17:36)
[2023-01-01] MEDS ORDERED: GLUCAGON 1 MG/VIAL IM PRN (17:50)
[2023-01-01] MEDS ORDERED: D10W 250 ML BAG IV PRN (17:50)
[2023-01-01] MEDS ORDERED: NITROGLYCERIN 0.4 MG/TAB SL PRN (20:47)
[2023-01-01] MEDS ORDERED: ACETAMINOPHEN 500 MG TAB PO PRN (20:47)
[2023-01-01] MEDS ORDERED: ONDANSETRON 4 MG/2 ML VIAL IV PRN (20:47)
[2023-01-01] MEDS ORDERED: HEPARIN 5000 UNIT/ML 1 ML VIAL IV ONE (21:26)
[2023-01-01] MEDS: INSULIN REGULAR (HUMAN) 100 UNIT/ML SQ SCH (21:31)
[2023-01-01] MEDS: MORPHINE 2 MG/ML SYR IV PRN (21:32)
[2023-01-01] MEDS ORDERED: HEPARIN/D5W 25,000 UNIT/500 ML BAG IV SCH (22:00)
[2023-01-01] MEDS: ALPRAZOLAM 0.25 MG TABLET PO PRN (23:30)
[2023-01-02 01:03] VITALS: BMI 34.2
[2023-01-02 03:52] LABS: Absolute Lymphocytes (CBC) 3.4 K/uL (0.7-4.9); Hematocrit 36.5 % (39.6-49.0); Lymphocytes % 40.1 % (15.3-44.8); MPV 9.5 fL (7.6-11.3); Platelets 148 thou/uL (152-406); RBC Red Blood Cell Count 4.24 M/uL (4.33-5.43)
[2023-01-02 04:10] LABS: Magnesium 1.9 mg/dL (1.6-2.4); Potassium 3.8 mEq/L (3.5-5.1); Troponin High Sensitivity 9.5 pg/mL (<58.9)
[2023-01-02] MEDS: MORPHINE 2 MG/ML SYR IV PRN ×3 (06:30→19:39)
[2023-01-02] MEDS: INSULIN REGULAR (HUMAN) 100 UNIT/ML SQ SCH ×4 (07:30→21:00)
[2023-01-02] MEDS ORDERED: KCL 20 MEQ/100 mL IVPB 20 MEQ/100 ML BAG IV ONE (08:00)
[2023-01-02] MEDS ORDERED: ASPIRIN 325 MG TAB PO SCH (09:00)
[2023-01-02] MEDS ORDERED: ENOXAPARIN 40 MG/0.4 ML SQ SCH (09:00)
--- NOTE | 2023-01-02 16:27 | P.PN ---
Subjective Date of Service: 01/02/23 Primary Care Provider: Dr Silva Chief Complaint: Chest pain Subjective: No new changes, Other (N.p.o. left heart cath scheduled for today. Discharge pending catheter results.) Review of Systems 10-point ROS is otherwise unremarkable Physical Examination - Vital Signs Temperature: 97.7 F Blood Pressure: 115/63 Pulse: 80 Respirations: 18 Pulse Ox (%): 94 - Physical Exam General: Alert, In no apparent distress, Oriented x3, Obese HEENT: Atraumatic, Normocephalic, PERRLA Neck: Supple, 2+ carotid pulse no bruit, JVD not distended Respiratory: Clear to auscultation bilaterally, Normal air movement Cardiovascular: No edema, Normal pulses, Regular rate/rhythm, Normal S1 S2 Capillary refill: <2 Seconds Gastrointestinal: Normal bowel sounds, Soft and benign Musculoskeletal: No clubbing, No swelling Integumentary: No rashes, No breakdown Neurological: Normal speech, Normal strength at 5/5 x4 extr Assessment And Plan - Plan Assessment plan Chest pain rule out [place] Cardiology consult, trend troponin, telemetry he reports having recent abnormal stress test. Lipid panel in a.m. sees Dr. Stockton for cardiology. Aspirin, as needed analgesics, beta-blockers, as needed nitro, EKG Rate is 85 beats/min. Rhythm is regular. QRS [place] is Normal. [place] interval is normal. QRS denies for about 1 month history interval is normal. QT interval is normal. No Q waves. T waves are Normal. No ST changes noted. Clinical impression: Normal ECG and No evidence of ischemia. troponin is normal 8.0, BNP normal at 84 Chest x-ray no acute: Coronary process Obesity Diabetes hypertension hyperlipidemia vertigo Resume appropriate home meds diabetes neuropathy Accu-Cheks, sliding scale insulin DVT prophylaxis Lovenox Diet n.p.o. after midnight Full code Discharge Plan: Home Plan to discharge in: 24 Hours - Code Status/Comfort Care Code Status: Full Code Physician Review: Patient Assessed, Agree with Above Assessment and Plan Critical Care: No Time Spent Managing PTS Care (In Minutes): 35
--- NOTE | 2023-01-02 18:05 | EKG ---
Test Date: 2023-01-01 Test Time: 14:01:13 [employer]vp Marketing: ENRIQUETA MEASUREMENT RESULTS: Intervals: Rate: 85 W[place]: 154 QRSD: 96 QT: 386 QTc: 459 [place]: P: 35 WY: 154 QRS: 65 T: 57 INTERPRETIVE STATEMENTS: Normal sinus rhythm Normal ECG Compared to ECG 12/21/2022 09:15:55 No significant changes Electronically Signed On 01-02-23 18:03:23 CDT by Inocencio Stockton
[2023-01-02 20:02] VITALS: O2SAT 95
[2023-01-02] MEDS: ALPRAZOLAM 0.25 MG TABLET PO PRN (20:41)
[2023-01-02 21:35] VITALS: TEMP 97.7
--- NOTE | 2023-01-03 07:32 | P.DS ---
Admission Date: 01/01/23 Discharge Date: 01/03/23 Primary Care Provider: Dr Silva Disposition: ROUTINE DISCHARGE Discharge Condition: GOOD Reason for Admission: Chest pain Brief History of Present Illness: 67-year-old male with a past medical history of hypertension, hyperlipidemia, diabetes, neuropathy, vertigo, presents to the emergency room with chest pain. He reports chest pain is substernal, 6 7 out of 10. Is constant he reports chest pain is associated with shortness of breath. He reports shortness of breath is worse with exertion. He denies edema, dizziness, cough, fever, recent infection. Plan to admit for chest pain rule out [place]. Obesity, diabetes, he reports having recent abnormal stress test. Sees Dr. Skelton for cardiology. ER course EKG Rate is 85 beats/min. Rhythm is regular. QRS [place] is Normal. [place] interval is normal. QRS denies for about 1 month history interval is normal. QT interval is normal. No Q waves. T waves are Normal. No ST changes noted. Clinical impression: Normal ECG and No evidence of ischemia. Laboratory evaluation troponin is normal 8.0, BNP normal at 84, CBC unremarkable. Chest x- ray no acute: Coronary process - Physical Exam General: Alert, In no apparent distress, Oriented x3, Obese HEENT: Atraumatic, Normocephalic, PERRLA Neck: Supple, 2+ carotid pulse no bruit, JVD not distended Respiratory: Clear to auscultation bilaterally, Normal air movement Cardiovascular: No edema, Normal pulses, Regular rate/rhythm, Normal S1 S2 Capillary refill: <2 Seconds Gastrointestinal: Normal bowel sounds, Soft and benign Musculoskeletal: No clubbing, No swelling Integumentary: No rashes, No breakdown Neurological: Normal speech, Normal strength at 5/5 x4 extr Hospital Course: 67-year-old male with a history of CAD, presented to the hospital with chest pain. Patient reported history of abnormal stress test of the prior to hospital admission. Patient had normal troponins while admitted. Was initially started on heparin drip prior to heart cath. He was treated with aspirin, as needed analgesics, beta-blockers, as needed nitro, EKG Rate is 85 beats/min. Rhythm is regular. QRS [place] is Normal. [place] interval is normal. QRS denies for about 1 month history interval is normal. QT interval is normal. No Q waves. T waves are Normal. No ST changes noted. Clinical impression: Normal ECG and No evidence of ischemia. troponin is normal 8.0, BNP normal at 84Chest x-ray no acute: Coronary process Is status post left heart cath with Dr. Stockton. Patient was discharged home postprocedure. Tolerating regular diet, voiding. Patient needs to follow-up with cardiology after discharge 7 to 10 days. Resume appropriate home medications. Follow-up with PCP in 1 to 2 weeks. Vital Signs/Physical Exam: Temp Pulse Resp BP Pulse Ox 97.7 F 92 H 18 167/76 H 97 01/02/23 20:00 01/02/23 20:00 01/02/23 20:09 01/02/23 20:00 01/02/23 20:00 Laboratory Data at Discharge: WBC 8.40 thou/uL (4.3-10.9) 01/02/23 03:40 Hgb 12.4 g/dL (13.6-17.9) L D 01/02/23 03:40 Hct 36.5 % (39.6-49.0) L 01/02/23 03:40 Plt Count 148 thou/uL (152-406) L D 01/02/23 03:40 PT 11.5 SECONDS (9.5-12.5) 01/01/23 14:08 INR 1.05 01/01/23 14:08 APTT 47.9 SECONDS (24.3-36.9) H 01/02/23 09:58 Sodium 137 mEq/L (136-145) 01/02/23 03:40 Potassium 3.8 mEq/L (3.5-5.1) 01/02/23 03:40 BUN 18 mg/dL (7-18) 01/02/23 03:40 Creatinine 1.33 mg/dL (0.70-1.30) H 01/02/23 03:40 Glucose 285 mg/dL (74-106) H 01/02/23 03:40 Magnesium 1.9 mg/dL (1.6-2.4) 01/02/23 03:40 Total Bilirubin 0.4 mg/dL (0.2-1.0) 01/01/23 14:08 AST 17 U/L (15-37) 01/01/23 14:08 ALT 39 U/L (16-61) 01/01/23 14:08 Alkaline Phosphatase 73 U/L (45-117) 01/01/23 14:08 Triglycerides 355 mg/dL (<150) H 01/02/23 03:40 Cholesterol 143 mg/dL (<200) 01/02/23 03:40 HDL Cholesterol 36 mg/dL (40-60) L 01/02/23 03:40 Cholesterol/HDL Ratio 3.97 01/02/23 03:40 Lipase 52 U/L (13-75) 01/01/23 14:08 Home Medications: Aspirin Chewable [Aspirin Chewable*] 81 mg PO DAILY 01/02/23 Atorvastatin Calcium [Lipitor] 80 mg PO DAILY 01/02/23 Bupropion *Xl* [Wellbutrin XL*] 150 mg PO DAILY 01/02/23 Docosahexanoic AC/Epa [Fish Oil 1,000 MG*] 1,000 mg PO BID 01/02/23 Fenofibrate [Tricor*] 160 mg PO DAILY 01/02/23 Gabapentin 300 mg PO DAILY 01/02/23 Hydrocodone 10/APAP 325 [[place] 10/325] 1 tab PO Q6H PRN #30 tab 01/02/23 Levothyroxine Sodium 150 mcg PO DAILY 01/02/23 Lisinopril [Zestril] 40 mg PO DAILY 01/02/23 Meclizine HCl 25 mg PO TID 01/02/23 Metformin HCl 500 mg PO BID 01/02/23 Metoprolol Tartrate [Lopressor*] 25 mg PO BID 01/02/23 Multivitamin 1 tab PO DAILY 01/02/23 Niacin 500 mg PO DAILY 01/02/23 Pantoprazole [Protonix Tab*] 40 mg PO DAILY 01/02/23 Prazosin HCl [Minipress*] 1 mg PO DAILY 01/02/23 Sertraline HCl 50 mg PO DAILY 01/02/23 clonazePAM [Klonopin*] 2 mg PO BEDTIME PRN 01/02/23 predniSONE [Deltasone] 20 mg PO DAILY #5 tab 01/02/23 New Medications: Hydrocodone 10/APAP 325 [[place] 10/325] 1 tab PO Q6H PRN #30 tab PRN Reason: Pain predniSONE [Deltasone] 20 mg PO DAILY #5 tab Physician Discharge Instructions: -DC IV and DC home if okay with cardiology -Follow-up with PCP in 1 to 2 weeks -Follow-up with Cardiology in 1 to 2 weeks -Please call Dr. Silva at [phone] if any questions regarding hospital stay -Please call nursing station at [phone] if any nursing or medication questions -Return to the emergency room if symptoms worsen Diet: AHA Activity: Fall precautions Followup: NONE,NONE [Primary Care Provider] -
--- NOTE | 2023-01-03 15:56 | CON ---
Date of Consultation: 01/02/2023 Reason For Consultation: Chest pain. History Of Present Illness: A 67-year-old male with history of hypertension; diabetes; dyslipidemia; coronary artery disease, status post 2 vessel bypass, presented with chest pain and shortness of nirav ath with activities and stress test in my office was abnormal. Cardiac enzymes have been negative. Past Medical History: As outlined above in the HPI. Medications: Refer reconciliation sheet for detailed list. Allergies: NO KNOWN DRUG ALLERGIES. Family History: No mature coronary artery disease or cancer. Social History: Does not smoke or drink. Does not use any drugs. Review of Systems: All systems reviewed are negative except as mentioned in HPI. Physical Examination: Vital Signs: Reviewed. Head and Neck: Pupils are equal, reactive to light. Intact eye movements. No JVD. No cervical lym phadenopathy. Neck is supple. Thyroid is not enlarged. Lungs: Clear to auscultation bilaterally. No rhonchi, wheezing, or crackles. No accessory muscle u se. Heart: Regular rate and rhythm. No extra sounds. Abdomen: Soft, nontender. Bowel sounds positive. No organomegaly. No masses or hernia. No rigidi ty or rebound. Extremities: No edema, clubbing, or cyanosis. Intact pulses. Skin: No rash. Neurologic: Alert, awake, oriented x3. No acute focal deficits appreciated. Investigations: Troponins are negative. BUN 18, creatinine 1.33, and hemoglobin is 12.4. Assessment/recommendations: 1.Chest pain with abnormal stress test. No history of coronary artery disease. Keep n.p.o., plan f or coronary angiogram. 2.Dyslipidemia. Recommend Lipitor 40 mg at bedtime. 3.Hypertension. Blood pressure is controlled. Continue current management. SR/MODL Voice ID: [id number] Report ID: [id number]
--- NOTE | 2023-01-03 20:05 | OP ---
Date of Procedure: 01/02/2023 Surgeon: SHAUN WALTERS Procedures Performed: 1.Selective coronary angiogram with bypass graft study. 2.Left heart catheterization. Indication: Unstable angina with positive stress test. Access: Right femoral artery 6-[place] closed with manual pressure. Complications: None. Bleeding: Less than 50 mL. Anesthesia: Total sedation time was 1 hour. Description Of Procedure: After risks, benefits, and alternatives were explained, patient agreed to procedure and signed informed consent. Patient was brought into the cardiac catheterization laborato ry, prepped and draped in usual sterile fashion. Then, I accessed the right femoral artery using mundo ropuncture kit, ultrasound guidance, and fluoroscopy and placed 6-[place] sheath and took 6-F rench JL4 catheter into the aortic root, engaged left main, took standard views, exchanged for 6-Fren GTI JR4 catheter, engaged the RCA, SVG to OM and IVEY to LAD and took standard views and removed the c atheter and removed the sheath. Manual pressure was held with good hemostasis and the catheter was p ushed over the wire into the LV, measured the LVEDP. Pullback did not record any gradient. Findings: 1.Left main is totally occluded 100%. 2.RCA is large and dominant with proximal 60%, mid 50%. 3.Bypass graft study, widely patent IVEY to LAD and the LAD appears to be normal. 4.Patent SVG to OM and the OM branches and the distal sac appears to be normal. 5.LVEDP normal at 8 mmHg. Conclusion: 1.Severe [place] coronary artery disease including totally occluded left main and moderate disease of the RCA with patent SVG graft to OM, and patent IVEY to LAD. 2.Normal LVEDP. Recommendation: Medical management. SR/MODL Voice ID: [id number] Report ID: [id number]
[2023-01-04 07:15] VITALS: BP 115/63
== END 2023-01-02 20:30 | disposition home or self-care (01) ==
LOC: ER 13:51 → ERHOLD 16:57 → 2ND 19:06
PROVIDERS: ADMIT Hospitalist; ATTEND Hospitalist
DX: I25.110 Atherosclerotic heart disease of native coronary artery with unstable angina pectoris (principal); I25.82 Chronic total occlusion of coronary artery; I10 Essential (primary) hypertension; E78.5 Hyperlipidemia, unspecified; E11.40 Type 2 diabetes mellitus with diabetic neuropathy, unspecified; E11.65 Type 2 diabetes mellitus with hyperglycemia; G47.00 Insomnia, unspecified; R42 Dizziness and giddiness; E66.9 Obesity, unspecified; Z68.34 Body mass index [BMI] 34.0-34.9, adult; Z95.1 Presence of aortocoronary bypass graft; Z79.82 Long term (current) use of aspirin; Z79.84 Long term (current) use of oral hypoglycemic drugs; Z79.899 Other long term (current) drug therapy; Z83.3 Family history of diabetes mellitus; Z82.49 Family history of ischemic heart disease and other diseases of the circulatory system
CPT/HCPCS: 93005; 85025 ×2; 80048 ×2; 36415; 83735 ×2; 85610; 80061; 82947 ×3; 80076; 85730 ×4; 84484 ×4; 83690; 83880; 71045; 93459; 76937; 99285; C1893; Q9966; J1815 ×3; J1644 ×3; J3480; J2270 ×4; J2405; J7030; G0378 ×4

== ENCOUNTER → 2023-03-19 | Emergency (ER) | payer OTHER ==
[~2023-03-19] MED LIST: CEFTRIAXONE 2000 MG/VIAL ONE; MORPHINE 4 MG/ML SYR ONE; ONDANSETRON 4 MG/2 ML VIAL ONE
[2023-03-19 14:23] LABS: Absolute Lymphocytes (CBC) 2.2 K/uL (0.7-4.9); Lymphocytes % 17.7 % (15.3-44.8); MCV 85.5 fL (80-100); MPV 9.7 fL (7.6-11.3); Platelets 263 thou/uL (152-406); RBC Red Blood Cell Count 5.26 M/uL (4.33-5.43)
[2023-03-19 14:28] LABS: Protime INR 1.1
[2023-03-19 14:40] LABS: Albumin 3.6 g/dL (3.4-5.0); Bilirubin Direct 0.1 mg/dL (0-0.2); Bilirubin Indirect, Calculated 0.4 mg/dL (0.2-0.8); Bilirubin Total 0.5 mg/dL (0.2-1.0); Magnesium 2.2 mg/dL (1.6-2.4); Potassium 3.7 mEq/L (3.5-5.1); Protein, Total 7.6 g/dL (6.4-8.2); Troponin High Sensitivity 23.2 pg/mL (<58.9)
[2023-03-19 15:03] LABS: Specific Gravity 1.021 (1.005-1.030); Urine Bacteria <20 /HPF (<20); Urine Bilirubin NEGATIVE (Negative); Urine Blood 1+ (Negative); Urine Clarity Extremely Turbid (Clear); Urine Color Yellow (Yellow); Urine Crystals Unidentified Few /HPF (None Seen); Urine Glucose 3+ (Negative); Urine Mucus Slight /HPF (None Seen); Urine Protein 3+ (Negative); Urine RBC >50 /HPF (None Seen); Urine Urobilinogen Normal (Normal)
--- NOTE | 2023-03-19 15:34 | RAD REPORT ---
EXAM DESCRIPTION: CT - [id number] - 03/19/2023 2:24 pm CLINICAL HISTORY: TRAUMA COMPARISON: No comparisons TECHNIQUE: Axial thin cut noncontrast CT images of the head were obtained. Axial thin cut noncontrast CT images of the cervical spine were obtained. Multiplanar reformatted images were generated and reviewed. All CT scans are performed using dose optimization technique as appropriate and may include automated exposure control or mA/KV adjustment according to patient size. FINDINGS: CT HEAD WITHOUT CONTRAST: No acute hemorrhage, hydrocephalus or extra-axial collection is identified.No areas of brain edema or midline shift. The paranasal sinuses and mastoids are clear.The calvarium is intact. CT CERVICAL SPINE WITHOUT CONTRAST: Mildly displaced right anterior C1 arch fracture near the junction with the lateral mass. Right C2 la teral mass mildly displaced and mildly comminuted fracture, extending along the base of the right tra nsverse process anteriorly. No evidence of traumatic subluxation.No prevertebral soft tissues swellin g is identified. IMPRESSION: No acute traumatic intracranial findings. Mildly displaced right anterior C1 arch fracture, and the right C2 lateral mass mildly comminuted fra ctures, which involve the base of the right C2 transverse process. If there is concern for right vert ebral artery dissection, patient may benefit from additional evaluation by CT angiogram of the neck. The findings were communicated to Miguel Bennett on 03/19/2023 at 15:29 hours.
--- NOTE | 2023-03-19 15:35 | RAD REPORT ---
EXAM DESCRIPTION: RADChest Single View03/19/2023 2:47 pm CLINICAL HISTORY: syncope COMPARISON: Chest Single View dated 01/01/2023; Chest Pa And Lat (2 Views) dated 12/21/2022; Chest P a And Lat (2 Views) dated 02/02/2022; Chest Single View dated 03/31/2018 TECHNIQUE: Portable AP view of the chest. FINDINGS: The lungs are clear. No pneumothorax or effusion. The cardiomediastinal contours are unre markable. Sequelae of median sternotomy. IMPRESSION: No acute cardiopulmonary process.
--- NOTE | 2023-03-19 15:36 | RAD REPORT ---
EXAM DESCRIPTION: Shoulder Right 2 View - 03/19/2023 2:47 pm CLINICAL HISTORY: PAIN COMPARISON: No comparisons TECHNIQUE: Internal and external rotation views of the right shoulder were obtained. FINDINGS: There is no fracture or dislocation. AC joint moderate degenerate changes. No acute or elaina picious findings. IMPRESSION: No acute osseous abnormality. AC joint degenerative changes.
--- NOTE | 2023-03-19 15:58 | RAD REPORT ---
EXAM DESCRIPTION: RAD - Shoulder Left 2 View - 03/19/2023 3:21 pm CLINICAL HISTORY: PAIN COMPARISON: No comparisons TECHNIQUE: Internal and external rotation views of the left shoulder were obtained. FINDINGS: There is no fracture or dislocation. AC joint mild degenerative changes. No acute or suspi cious findings. IMPRESSION: Mild degenerative changes. No other acute osseous abnormality.
--- NOTE | 2023-03-19 16:22 | EDPHYS ---
Physician Documentation [facility] Name: Rigo Gonzalez Age: 67 yrs Sex: Male : 1955 Arrival Date: 03/19/2023 Time: 13:50 Bed IW10 Private MD: Dilan Martino ED Physician Mac Horvath HPI: 03/19 14:48 This 67 yrs old Male presents to ER via Wheelchair with complaints of Fall rt Injury. 14:48 Patient presents to the ED with syncopal event. Patient became acutely dizzy and lost rt consciousness. He believes that he hit his head. This occurred between 10 and 11 AM. The patient had continued pain to the head, neck, bilateral shoulders. Denies other acute complaints at this time, symptoms are moderate in severity, no other aggravating elevating factors.. Historical: - PMHx: 14:05 Diabetes - NIDDM; Hypertension; Hypothyroidism; neuropathy; Vertigo; iw - PSHx: 14:05 Coronary artery bypass graft; triple; iw - Immunization history:: Adult Immunizations up to date. - Social history:: Smoking status: Patient denies any tobacco usage or history of. - Family history:: not pertinent. ROS: 14:48 Constitutional: Negative for fever, chills, and weight loss, Cardiovascular: Negative rt for chest pain, palpitations, and edema, Respiratory: Negative for shortness of breath, cough, wheezing, and pleuritic chest pain, Abdomen/GI: Negative for abdominal pain, nausea, vomiting, diarrhea, and constipation, Skin: Negative for injury, rash, and discoloration, Psych: Negative for depression, anxiety, suicide ideation, homicidal ideation, and hallucinations, 14:48 Neck: Positive for pain with movement, pain at rest, 14:48 MS/extremity: Positive for pain, Negative for deformity, 14:48 Neuro: Positive for headache, syncope, Exam: 14:48 Constitutional: This is a well developed, well nourished patient who is awake, alert, rt and in no acute distress. Head/Face: Normocephalic, atraumatic. Chest/axilla: Normal chest wall appearance and motion. Nontender with no deformity. No lesions are appreciated. Cardiovascular: Regular rate and rhythm with a normal S1 and S2. No gallops, murmurs, or rubs. Normal PMI, no JVD. No pulse deficits. Respiratory: Lungs have equal breath sounds bilaterally, clear to auscultation and percussion. No rales, rhonchi or wheezes noted. No increased work of breathing, no retractions or nasal flaring. Abdomen/GI: Soft, non-tender, with normal bowel sounds. No distension or tympany. No guarding or rebound. No evidence of tenderness throughout. Skin: Warm, dry with normal turgor. Normal color with no rashes, no lesions, and no evidence of cellulitis. Neuro: Awake and alert, GCS 15, oriented to person, place, time, and situation. Cranial nerves II-XII grossly intact. Motor strength 5/5 in all extremities. Sensory grossly intact. Cerebellar exam normal. Normal gait. Psych: Awake, alert, with orientation to person, place and time. Behavior, mood, and affect are within normal limits. 14:48 Neck: No posterior cervical midline tenderness, 14:48 ECG was reviewed by the Attending Physician. 14:48 Musculoskeletal/extremity: Mild tenderness to the bilateral shoulders, no deformities noted. Vital Signs: 14:30 BP 165 / 88; Pulse 99; Resp 18; Pulse Ox 98% ; cp4 15:00 BP 168 / 79; Pulse 92; Resp 18; Pulse Ox 96% ; cp4 15:30 BP 175 / 81; Pulse 91; Resp 18; Pulse Ox 98% ; cp4 16:30 Weight 145.15 kg; Height 6 ft. 0 in. ; cp4 16:30 BP 171 / 79; Pulse 90; Resp 18; Pulse Ox 98% ; cp4 16:34 Temp 97.7; bd 17:00 BP 180 / 92; Pulse 91; Resp 18; Pulse Ox 99% ; cp4 17:30 BP 168 / 82; Pulse 94; Resp 18; Pulse Ox 98% ; cp4 18:15 BP 178 / 85; Pulse 94; Resp 18; Pulse Ox 98% ; cp4 16:30 Body Mass Index 43.40 (145.15 kg, 182.88 cm) cp4 MDM: 13:58 Patient medically screened. rt 17:21 Differential diagnosis: Intracranial hemorrhage, spinal fracture, syncope, dysrhythmia, rt anemia, electrolyte disturbance. Data reviewed: vital signs, nurses notes, lab test result(s), EKG, radiologic studies. Consideration of Admission/Observation Patient quires transfer to trauma center due to fractured cervical spine. I considered the following discharge prescriptions or medication management in the emergency department Medications were administered in the Emergency Department. See MAR. Independent interpretation of the following test(s) in the Emergency Department CT Scan: My interpretation is No intracranial hemorrhage seen on interpretation of CT scan images. Care significantly affected by the following chronic conditions: Diabetes, Hypertension. Counseling: I had a detailed discussion with the patient and/or guardian regarding the historical points, exam findings, and any diagnostic results supporting the discharge/admit diagnosis, lab results, radiology results, the need to transfer to another facility. 03/19 14:06 Order name: Basic Metabolic Panel; Complete Time: 14:42 rt 03/19 14:06 Order name: CBC with Diff; Complete Time: 14:42 rt 03/19 14:06 Order name: LFT's; Complete Time: 14:42 rt 03/19 14:06 Order name: Magnesium; Complete Time: 14:42 rt 03/19 14:06 Order name: NT PRO-BNP; Complete Time: 14:42 rt 03/19 14:06 Order name: PT-INR; Complete Time: 14:42 rt 03/19 14:06 Order name: Troponin HS; Complete Time: 14:42 rt 03/19 14:06 Order name: UAM; Complete Time: 15:28 rt 03/19 15:12 Order name: Urine Culture EDMS 03/19 14:06 Order name: XRAY Chest (1 view); Complete Time: 15:36 rt 03/19 14:06 Order name: Shoulder Right (2 View) XRAY; Complete Time: 15:46 rt 03/19 14:06 Order name: CT Head C Spine; Complete Time: 15:36 rt 03/19 14:41 Order name: Shoulder Left (2 View) XRAY; Complete Time: 16:19 rt 03/19 15:45 Order name: CT Neck Angio; Complete Time: 18:15 rt 03/19 14:06 Order name: EKG; Complete Time: 14:07 rt 03/19 14:06 Order name: Cardiac monitoring; Complete Time: 14:16 rt 03/19 14:06 Order name: EKG - Nurse/Tech; Complete Time: 14:16 rt 03/19 14:06 Order name: IV Saline Lock; Complete Time: 14:16 rt 03/19 14:06 Order name: Labs collected and sent; Complete Time: 14:16 rt 03/19 14:06 Order name: O2 Per Protocol; Complete Time: 14:16 rt 03/19 14:06 Order name: O2 Sat Monitoring; Complete Time: 14:16 rt 03/19 15:46 Order name: Cervical Collar; Complete Time: 15:47 rt EC:48 Rate is 93 beats/min. Rhythm is regular, Normal Sinus Rhythm with No ectopy. QRS Gaston rt is Normal. NV interval is normal. QRS interval is normal. QT interval is normal. No Q waves. T waves are Normal. No ST changes noted. Interpreted by me. Administered Medications: 14:51 Drug: morphine IVP or IV 4 mg IVP once over 4 mins Route: IVP; Infused Over: 4 mins; cp4 Site: right antecubital; 17:33 Follow up: Response: No adverse reaction cp4 14:51 Drug: Ondansetron IVP 4 mg IVP once; over 2 minutes Route: IVP; Site: right antecubital;cp4 17:33 Follow up: Response: No adverse reaction cp4 16:01 Drug: Rocephin IV 2 grams IV at calculated rate once; Given slow IV push per pharmarcy cp4 instructions Route: IV; Rate: calculated rate; Site: right antecubital; 16:30 Follow up: Response: No adverse reaction; IV Status: Infusion continued cp4 Disposition Summary: 03/19/23 16:21 Transfer Ordered Notes: Transfer Location: [facility] rt Reason: Higher level of care rt Condition: Fair rt Problem: new rt Symptoms: are unchanged rt Accepting Physician: (03/19/23 19:45) jb4 Diagnosis - Syncope rt - Right C1 arch fracture rt - Right C2 lateral mass fracture rt - UTI rt Forms: - Medication Reconciliation Form rt - SBAR form rt Signatures: Dispatcher [employer] EDAdri Randolph RN RN iw Bryson, James, RN RN jb4 Mac Horvath MD MD rt Olesya Reyes cp4 Corrections: (The following items were deleted from the chart) 19:45 16:21 rt jb4
--- NOTE | 2023-03-19 16:22 | ER ---
Nurse's Notes [facility] Name: Rigo Gonzalez Age: 67 yrs Sex: Male : 1955 Arrival Date: 03/19/2023 Time: 13:50 Bed IW10 Private MD: Dilan Martino Diagnosis: Syncope;Right C1 arch fracture;Right C2 lateral mass fracture;UTI Presentation: 03/19 14:03 Chief complaint: Patient states: was coming out of the bathroom and got dizzy and iw blacked out and passed out, family got him up and put him in his bed, was complaining of not feeling good and c/o head, neck, shoulder pain . he passed out between 10 and 11 am today. Coronavirus screen: At this time, the client does not indicate any symptoms associated with coronavirus-19. Ebola Screen: Patient negative for fever greater than or equal to 101.5 degrees Fahrenheit, and additional compatible Ebola Virus Disease symptoms Patient denies exposure to infectious person. Patient denies travel to an Ebola-affected area in the 21 days before illness onset. No symptoms or risks identified at this time. Initial Sepsis Screen: Does the patient meet any 2 criteria? No. Patient's initial sepsis screen is negative. Does the patient have a suspected source of infection? No. Patient's initial sepsis screen is negative. Risk Assessment: Do you want to hurt yourself or someone else? Patient reports no desire to harm self or others. Onset of symptoms was March 19, 2023. 14:03 Method Of Arrival: Wheelchair iw 14:03 Acuity: HESHAM 2 iw Historical: - PMHx: 14:05 Diabetes - NIDDM; Hypertension; Hypothyroidism; neuropathy; Vertigo; iw - PSHx: 14:05 Coronary artery bypass graft; triple; iw - Immunization history:: Adult Immunizations up to date. - Social history:: Smoking status: Patient denies any tobacco usage or history of. - Family history:: not pertinent. Screenin:17 [facility] ED Fall Risk Assessment (Adult) History of falling in the last 3 months, cp4 including since admission Yes- single mechanical fall (1 pt) Confusion or Disorientation No (0 pts) Intoxicated or Sedated No (0 pts) Impaired Gait No (0 pts) Mobility Assist Device Used No (0 pt) Altered Elimination No (0 pt) Score/Fall Risk Level 0 - 2 = Low Risk Oriented to surroundings, Maintained a safe environment, Educated pt \T\ family on fall prevention, incl call for assistance when getting out of bed, Assessed \T\ reinforced patient's understanding of fall precautions, Provided non-skid footwear, Hourly rounding (assess needs \T\ fall precautionary measures) done. 19:10 Abuse screen: Denies threats or abuse. Nutritional screening: No deficits noted. cp4 Tuberculosis screening: No symptoms or risk factors identified. Assessment: 14:17 General: Appears in no apparent distress. Behavior is calm, cooperative, appropriate cp4 for age. Pain: Complains of pain in face and right arm. Vital Signs: 14:30 BP 165 / 88; Pulse 99; Resp 18; Pulse Ox 98% ; cp4 15:00 BP 168 / 79; Pulse 92; Resp 18; Pulse Ox 96% ; cp4 15:30 BP 175 / 81; Pulse 91; Resp 18; Pulse Ox 98% ; cp4 16:30 Weight 145.15 kg; Height 6 ft. 0 in. ; cp4 16:30 BP 171 / 79; Pulse 90; Resp 18; Pulse Ox 98% ; cp4 16:34 Temp 97.7; bd 17:00 BP 180 / 92; Pulse 91; Resp 18; Pulse Ox 99% ; cp4 17:30 BP 168 / 82; Pulse 94; Resp 18; Pulse Ox 98% ; cp4 18:15 BP 178 / 85; Pulse 94; Resp 18; Pulse Ox 98% ; cp4 16:30 Body Mass Index 43.40 (145.15 kg, 182.88 cm) cp4 ED Course: 13:51 Patient arrived in ED. rg4 13:51 Dilan Martino MD is Private Physician. rg4 13:53 Mac Horvath MD is Attending Physician. rt 14:05 Triage completed. iw 14:05 Arm band placed on. iw 14:07 Olesya Reyes is Primary Nurse. cp4 14:16 Basic Metabolic Panel Sent. cp4 14:16 CBC with Diff Sent. cp4 14:16 LFT's Sent. cp4 14:16 NT PRO-BNP Sent. cp4 14:16 Magnesium Sent. cp4 14:16 PT-INR Sent. cp4 14:16 Troponin HS Sent. cp4 14:17 Bed in low position. Call light in reach. Side rails up X2. cp4 14:18 Inserted saline lock: 20 gauge in right antecubital area, using aseptic technique. cp4 Blood collected. 14:25 CT Head C Spine In Process Unspecified. EDMS 14:49 XRAY Chest (1 view) In Process Unspecified. EDMS 14:49 Shoulder Right (2 View) XRAY In Process Unspecified. EDMS 15:23 Shoulder Left (2 View) XRAY In Process Unspecified. EDMS 16:30 CT Neck Angio In Process Unspecified. EDMS 19:10 Provided Education on: transfer. cp4 19:10 No provider procedures requiring assistance completed. Patient transferred, IV remains cp4 in place. Administered Medications: 14:51 Drug: morphine IVP or IV 4 mg IVP once over 4 mins Route: IVP; Infused Over: 4 mins; cp4 Site: right antecubital; 17:33 Follow up: Response: No adverse reaction cp4 14:51 Drug: Ondansetron IVP 4 mg IVP once; over 2 minutes Route: IVP; Site: right antecubital;cp4 17:33 Follow up: Response: No adverse reaction cp4 16:01 Drug: Rocephin IV 2 grams IV at calculated rate once; Given slow IV push per pharmarcy cp4 instructions Route: IV; Rate: calculated rate; Site: right antecubital; 16:30 Follow up: Response: No adverse reaction; IV Status: Infusion continued cp4 Medication: 14:17 VIS not applicable for this client. cp4 Outcome: 16:21 ER care complete, transfer ordered by . rt 19:10 Transferred by ground EMS to [facility], Transfer form completed. X-rays sent cp4 w/ patient. 19:10 Condition: stable 19:10 Instructed on the need for transfer, Demonstrated understanding of instructions, follow-up care, 19:45 Patient left the ED. jb4 Signatures: Dispatcher [employer] EDMS Marie Gross Irene, RN Armida Egan rg4 Carlos Welch RN RN jb4 Mac Horvath MD MD rt Olesya Reyes cp4
--- NOTE | 2023-03-19 18:07 | RAD REPORT ---
EXAM DESCRIPTION: CT - Neck Angio - 03/19/2023 4:28 pm CLINICAL HISTORY: TRAUMA COMPARISON: Head C Spine Mpr Wo Con dated 03/19/2023 TECHNIQUE: Axial CT angiography images of the head was performed with multiplanar and maximum intens ity projection reconstructions. Images performed following intravenous administration of 70mL Isovue 370. All CT scans are performed using dose optimization technique as appropriate and may include automated exposure control or mA/KV adjustment according to patient size. Quantification of carotid stenosis, if any, is performed according to NASCET criteria. FINDINGS: A left aortic arch is identified with normal three vessel configuration of the great vesse ls. Moderate burden of calcified and noncalcified plaque along the proximal right ICA, with focal narrowi ng along the proximal third seen on axial image 163/[id number] with narrowest luminal diameter 2.3 mm when m easured sagittal image 76, compared to more distal diameter of 5.5 mm, amounting to 59% stenosis. Mil d burden of atherosclerotic carotid bulb. No significant stenosis on the left. No significant stenosis is identified involving the cervical segments of both internal carotid arteri es. The right vertebral artery is diminutive and essentially terminates as the right PICA. Multifocal up to moderate atherosclerotic narrowing of the left V1 segment. Vertebral arteries are otherwise paten t. IMPRESSION: No evidence of dissection. Up to 59% focal stenosis along the proximal third of the right ICA by NASCET criteria. Left carotid a rtery is patent. Multifocal up to moderate stenosis along the dominant left vertebral artery. Diminutive right vertebr al artery, terminating as the right PICA. CAROTID STENOSIS REFERENCE USING NASCET CRITERIA: % ICA stenosis = (1 - narrowest ICA diameter/diameter of distal cervical ICA) x 100. Mild - <50% stenosis. Moderate - 50-69% stenosis. Severe - 70-94% stenosis. Near occlusion - 95-99% stenosis. Occluded - 100% stenosis.
[2023-03-19 20:17] VITALS: BP 178/85; TEMP 97.7; O2SAT 98
== END ==
LOC: ER 13:50
DX: S12.031A Nondisplaced posterior arch fracture of first cervical vertebra, initial encounter for closed fracture (principal); S12.040A Displaced lateral mass fracture of first cervical vertebra, initial encounter for closed fracture; N39.0 Urinary tract infection, site not specified; E11.9 Type 2 diabetes mellitus without complications; I10 Essential (primary) hypertension; Z95.1 Presence of aortocoronary bypass graft
CPT/HCPCS: 96365; 93005; 87088; 85025; 81001; 87086; 80048; 36415; 83735; 85610; 80076; 84484; 83880; 70450; 72125; 70498; 71045; 73030 ×2; 96375; 99285; Q9967; J2405; J0696

== ENCOUNTER 2023-04-08 17:12 | Inpatient (IN) | payer OTHER ==
[2023-04-08] MEDS ORDERED: NA CHLORIDE 0.9% 1,000 ML ONE ×2 (18:11→19:03)
[2023-04-08] MEDS ORDERED: CEFTRIAXONE 1000 MG/VIAL ONE (18:11)
[2023-04-08 18:33] LABS: Absolute Lymphocytes (CBC) 1.4 K/uL (0.7-4.9); Hematocrit 35.7 % (39.6-49.0); Lymphocytes % 10.6 % (15.3-44.8); MCV 84.1 fL (80-100); MPV 9.1 fL (7.6-11.3); Platelets 254 thou/uL (152-406); RBC Red Blood Cell Count 4.24 M/uL (4.33-5.43)
[2023-04-08 18:34] LABS: Protime INR 1.37
--- NOTE | 2023-04-08 18:36 | RAD REPORT ---
[facility] CLINICAL HISTORY: COUGH COMPARISON: Chest Single View dated 03/19/2023; Chest Single View dated 01/01/2023; Chest Pa And Lat (2 Views) dated 12/21/2022; Chest Pa And Lat (2 Views) dated 02/02/2022 TECHNIQUE: Portable AP view of the chest. FINDINGS: The lungs are clear. No pneumothorax or effusion. Mild cardiomegaly. Mediastinal contours are unchanged, again with sequelae of CABG. IMPRESSION: No acute pulmonary process. Mild cardiomegaly.
[2023-04-08 18:43] LABS: Urine Bacteria 20-50 /HPF (<20); Urine RBC 21-50 /HPF (None Seen)
[2023-04-08 18:44] LABS: Specific Gravity 1.013 (1.005-1.030); Urine Bilirubin NEGATIVE (Negative); Urine Blood 1+ (Negative); Urine Clarity Slightly Cloudy (Clear); Urine Color Yellow (Yellow); Urine Glucose 1+ (Negative); Urine Protein 2+ (Negative)
[2023-04-08 18:44] LABS: SARS-CoV-2 Antigen Rapid Res Negative (Negative)
[2023-04-08 18:45] LABS: Urine Urobilinogen Normal (Normal)
[2023-04-08 18:52] LABS: Albumin 2.8 g/dL (3.4-5.0); Bilirubin Direct 0.2 mg/dL (0-0.2); Bilirubin Indirect, Calculated 0.2 mg/dL (0.2-0.8); Bilirubin Total 0.4 mg/dL (0.2-1.0); Magnesium 1.3 mg/dL (1.6-2.4); Potassium 3.5 mEq/L (3.5-5.1); Protein, Total 7.2 g/dL (6.4-8.2); Troponin High Sensitivity 24.4 pg/mL (<58.9)
[2023-04-08] MEDS ORDERED: ACETAMINOPHEN 500 MG TAB ONE (19:03)
[2023-04-08] MEDS ORDERED: Levofloxacin500mg IV 500 MG/100 ML BAG IV ONE (19:03)
[2023-04-08] MEDS: Levofloxacin500mg IV 500 MG/100 ML BAG IV ONE (19:06)
--- NOTE | 2023-04-08 19:29 | ER ---
Nurse's Notes [facility] Name: Rigo Gonzalez Age: 67 yrs Sex: Male : 1955 Arrival Date: 04/08/2023 Time: 17:12 Bed 8 Private MD: Dilan Martino Diagnosis: UTI/ Urinary tract infection, site not specified;Severe sepsis without septic shock;Fever, unspecified;Obesity, unspecified;Elevated white blood cell count;Hypomagnesemia;Pyelonephritis acute-left, non obstructive Presentation: 04/08 17:43 Chief complaint: Patient states: home health nurse/physical therapist told him to come ko1 to the ER for high heart rate and temperature per Dr Lara. Coronavirus screen: At this time, the client does not indicate any symptoms associated with coronavirus-19. Ebola Screen: No symptoms or risks identified at this time. Initial Sepsis Screen: Does the patient meet any 2 criteria? No. Patient's initial sepsis screen is negative. Does the patient have a suspected source of infection? No. Patient's initial sepsis screen is negative. Risk Assessment: Do you want to hurt yourself or someone else? Patient reports no desire to harm self or others. Onset of symptoms was April 08, 2023. 17:43 Method Of Arrival: Wheelchair ko1 17:43 Acuity: HESHAM 3 ko1 Triage Assessment: 17:45 General: Appears in no apparent distress. Behavior is calm, cooperative, appropriate ko1 for age. Pain: Denies pain. Historical: - Allergies: 17:45 No Known Allergies; ko1 - PMHx: 17:45 Diabetes - NIDDM; Hypertension; Hypothyroidism; neuropathy; Vertigo; ko1 - PSHx: 17:45 Coronary artery bypass graft; triple; ko1 - Immunization history:: Adult Immunizations up to date. - Social history:: Smoking status: Patient denies any tobacco usage or history of. Screenin:25 [facility] ED Fall Risk Assessment (Adult) History of falling in the last 3 months, ph including since admission Yes- single mechanical fall (1 pt) Confusion or Disorientation No (0 pts) Intoxicated or Sedated No (0 pts) Impaired Gait No (0 pts) Mobility Assist Device Used No (0 pt) Altered Elimination No (0 pt) Score/Fall Risk Level 0 - 2 = Low Risk Oriented to surroundings, Maintained a safe environment, Provided non-skid footwear, Hourly rounding (assess needs \T\ fall precautionary measures) done. Abuse screen: Denies threats or abuse. Denies injuries from another. Nutritional screening: No deficits noted. Tuberculosis screening: No symptoms or risk factors identified. Assessment: 18:23 General: Appears in no apparent distress. uncomfortable, Behavior is cooperative, ph appropriate for age, anxious, Reports fever for 0-12 hours. Pain: Complains of pain in neck. Neuro: Level of Consciousness is awake, alert, obeys commands, Oriented to person, place, time, situation. Cardiovascular: Capillary refill < 3 seconds in bilateral fingers Patient's skin is warm and dry. Respiratory: Airway is patent Respiratory effort is even, unlabored. GI: No signs and/or symptoms were reported involving the gastrointestinal system. : No signs and/or symptoms were reported regarding the genitourinary system. Derm: Skin is pink, warm \T\ dry. 18:56 Reassessment: lactic acid of 3.3, relayed to Dr Mendez. rv Vital Signs: 17:43 BP 148 / 83; Pulse 112; Resp 18; Temp 100.1; Pulse Ox 96% on R/A; ko1 18:25 BP 161 / 73; Pulse 115; Resp 20; Pulse Ox 96% on R/A; ph 19:00 BP 141 / 109; Pulse 110; Resp 18; Pulse Ox 97% on R/A; jw7 20:00 BP 165 / 76; Pulse 107; Resp 16; Pulse Ox 96% on R/A; jw7 21:00 BP 124 / 68; Pulse 94; Resp 18; Pulse Ox 97% on R/A; jw7 23:00 BP 147 / 65; Pulse 91; Resp 18; Temp 98.8; Pulse Ox 100% on R/A; jw7 Roc Coma Score: 23:38 Eye Response: spontaneous(4). Motor Response: obeys commands(6). Verbal Response: rv oriented(5). Total: 15. ED Course: 17:15 Patient arrived in ED. mr 17:16 Dilan Martino MD is Private Physician. mr 17:23 Germán Mendez MD is Attending Physician. tila 17:45 Triage completed. ko1 17:45 Arm band placed on right wrist. Patient placed in an exam room, on a stretcher, on ko1 surveillance system monitor, on pulse oximetry, Patient notified of wait time. 18:13 XRAY Chest (1 view) In Process Unspecified. EDMS 18:23 Lipase Sent. ph 18:23 SARS RAPID Sent. ph 18:23 Blood Culture Adult (2) Sent. ph 18:23 Flu Sent. ph 18:23 Strep Sent. ph 18:23 Urinalysis w/ reflexes Sent. ph 18:23 Lactate w/ 2H reflex if indic. Sent. ph 18:23 Basic Metabolic Panel Sent. ph 18:23 CBC with Diff Sent. ph 18:23 LFT's Sent. ph 18:23 Magnesium Sent. ph 18:23 NT PRO-BNP Sent. ph 18:23 PT-INR Sent. ph 18:23 Troponin HS Sent. ph 18:24 Patient has correct armband on for positive identification. Placed in gown. Bed in low ph position. Call light in reach. Side rails up X2. Client placed on continuous cardiac and pulse oximetry monitoring. NIBP monitoring applied. Door closed. Noise minimized. 18:24 Initial lab(s) drawn, by me, sent to lab. Urine collected: clean catch specimen, COVID ph swab sent to lab. Flu and/or RSV swab sent to lab. Strep swab sent to lab. Inserted saline lock: 22 gauge in right antecubital area, using aseptic technique. Blood collected. 18:26 Noreen Broussard, RN is Primary Nurse. ph 18:57 No provider procedures requiring assistance completed. rv 19:22 Inserted saline lock: 22 gauge in right forearm, using aseptic technique. rv 19:27 Dilan Martino MD is Hospitalizing Provider. tila 20:25 Primary Nurse role handed off by Noreen Broussard, RN as6 20:48 Umer Vera, АННА is Primary Nurse. rv 23:41 Patient admitted, IV remains in place. rv Administered Medications: 18:19 Drug: NS 0.9% IV 1000 ml IV at 1 bolus Per protocol; 1000 mL bolus Route: IV; Rate: 1 kc6 bolus; Site: right antecubital; 19:21 Follow up: IV Status: Completed infusion; IV Intake: 1000ml rv 20:49 Follow up: IV Status: Completed infusion; IV Intake: 1000ml rv 18:19 Drug: Rocephin IV 1 grams IV at per protocol once; Given slow IV push per pharmacy [id number] instructions Route: IV; Rate: per protocol; Site: right antecubital; 19:22 Follow up: Response: No adverse reaction; IV Status: Completed infusion rv 19:21 Drug: Acetaminophen PO 1000 mg PO once Route: PO; rv 20:49 Follow up: Response: No adverse reaction rv 19:21 Drug: NS 0.9% IV 1000 ml IV at 1 bolus Per protocol; 1000 mL bolus Route: IV; Rate: 1 rv bolus; Site: right forearm; 20:49 Follow up: IV Status: Completed infusion; IV Intake: 1000ml rv 19:21 Drug: levofloxacin IVPB 500 mg 100 ml IVPB once over 60 mins Volume: 100 ml; Route: rv IVPB; Infused Over: 60 mins; Site: right forearm; 20:49 Follow up: Response: No adverse reaction; IV Status: Completed infusion; IV Intake: rv 100ml 20:48 Drug: Magnesium Sulfate IVPB 2 grams IVPB once over 2 hrs Route: IVPB; Infused Over: 2 rv hrs; Site: right forearm; Medication: 18:25 VIS not applicable for this client. ph Intake: 19:21 IV: 1000ml; Total: 1000ml. rv 20:49 IV: 100ml; Total: 1100ml. rv 20:49 IV: 1000ml; Total: 2100ml. rv 20:49 IV: 1000ml; Total: 3100ml. rv Outcome: 19:28 Decision to Hospitalize by Provider. tila 23:40 Admitted to Tele accompanied by tech, via wheelchair, room 431, with chart, Report rv called to zaira talley 23:40 Condition: good 23:40 Instructed on the need for admit, 23:41 Patient left the ED. rv Signatures: Dispatcher [employer] EDGermán Trejo MD MD cha Rivera, Mary, Reg Reg mr Noreen Broussard, RN Umer Garcias ph RN RN rv Chris Craig, АННА RN [email or web address] Ros Mckee, RN RN jw7 Clemencia Titus RN RN [id number] Ирина Marrero RN RN ko1
--- NOTE | 2023-04-08 19:29 | EDPHYS ---
Physician Documentation [facility] Name: Rigo Gonzalez Age: 67 yrs Sex: Male : 1955 Arrival Date: 04/08/2023 Time: 17:12 Bed 8 Private MD: Dilan Martino ED Physician Germán Mendez HPI: 04/08 19:37 This 67 yrs old Male presents to ER via Wheelchair with complaints of High tila Heart rate, Fever. 19:23 The patient reports fever, that was measured at 100 degrees Fahrenheit. Onset: The tila symptoms/episode began/occurred 1 day(s) ago. Modifying factors: there are no obvious modifying factors. Associated signs and symptoms: Pertinent positives: chills, nausea. Severity of symptoms: At their worst the symptoms were mild moderate in the emergency department the symptoms are unchanged. The patient has not experienced similar symptoms in the past. 19:37 The patient presents with urinary symptoms, dribbling of urine, dysuria, urinary tila frequency, hesitancy to initiate urine stream. Modifying factors: The symptoms are alleviated by nothing. fever , dysuria, weakness. Associated signs and symptoms: Pertinent positives: dysuria, fever, nausea. Severity of symptoms: At their worst the symptoms were mild, moderate, in the emergency department the symptoms are unchanged. Historical: - Allergies: 17:45 No Known Allergies; ko1 - PMHx: 17:45 Diabetes - NIDDM; Hypertension; Hypothyroidism; neuropathy; Vertigo; ko1 - PSHx: 17:45 Coronary artery bypass graft; triple; ko1 - Immunization history:: Adult Immunizations up to date. - Social history:: Smoking status: Patient denies any tobacco usage or history of. ROS: 19:24 Constitutional: Negative for fever, chills, and weight loss, Eyes: Negative for injury, tila pain, redness, and discharge, ENT: Negative for injury, pain, and discharge, Neck: Negative for injury, pain, and swelling, Respiratory: Negative for shortness of breath, cough, wheezing, and pleuritic chest pain, Abdomen/GI: Negative for abdominal pain, nausea, vomiting, diarrhea, and constipation, Back: Negative for injury and pain, MS/Extremity: Negative for injury and deformity, Skin: Negative for injury, rash, and discoloration, Neuro: Negative for headache, weakness, numbness, tingling, and seizure, Psych: Negative for depression, anxiety, suicide ideation, homicidal ideation, and hallucinations, Allergy/Immunology: Negative for hives, rash, and allergies, Endocrine: Negative for neck swelling, polydipsia, polyuria, polyphagia, and marked weight changes, Hematologic/Lymphatic: Negative for swollen nodes, abnormal bleeding, and unusual bruising, 19:24 Cardiovascular: Positive for palpitations, 19:24 : Positive for urinary symptoms, burning with urination, foul smelling urine, Exam: 19:24 Constitutional: This is a well developed, well nourished patient who is awake, alert, tila and in no acute distress. Head/Face: Normocephalic, atraumatic. Eyes: Pupils equal round and reactive to light, extra-ocular motions intact. Lids and lashes normal. Conjunctiva and sclera are non-icteric and not injected. Cornea within normal limits. Periorbital areas with no swelling, redness, or edema. ENT: Nares patent. No nasal discharge, no septal abnormalities noted. Tympanic membranes are normal and external auditory canals are clear. Oropharynx with no redness, swelling, or masses, exudates, or evidence of obstruction, uvula midline. Mucous membranes moist. Neck: Trachea midline, no thyromegaly or masses palpated, and no cervical lymphadenopathy. Supple, full range of motion without nuchal rigidity, or vertebral point tenderness. No Meningismus. Chest/axilla: Normal chest wall appearance and motion. Nontender with no deformity. No lesions are appreciated. Respiratory: Lungs have equal breath sounds bilaterally, clear to auscultation and percussion. No rales, rhonchi or wheezes noted. No increased work of breathing, no retractions or nasal flaring. Abdomen/GI: Soft, non-tender, with normal bowel sounds. No distension or tympany. No guarding or rebound. No evidence of tenderness throughout. Back: No spinal tenderness. No costovertebral tenderness. Full range of motion. Skin: Warm, dry with normal turgor. Normal color with no rashes, no lesions, and no evidence of cellulitis. MS/ Extremity: Pulses equal, no cyanosis. Neurovascular intact. Full, normal range of motion. Neuro: Awake and alert, GCS 15, oriented to person, place, time, and situation. Cranial nerves II-XII grossly intact. Motor strength 5/5 in all extremities. Sensory grossly intact. Cerebellar exam normal. Normal gait. Psych: Awake, alert, with orientation to person, place and time. Behavior, mood, and affect are within normal limits. 19:24 Cardiovascular: Rate: tachycardic, actual rate is 115 bpm, Rhythm: regular, Pulses: Pulses are 4+ in bilateral radial, brachial, femoral, popliteal, posterior tibial and and dorsalis pedis arteries.. Heart sounds: normal, normal S1and S2, no S3 or S4, no murmur, no rub, no gallop, Edema: is not appreciated, JVD: is not appreciated, 19:24 ECG was reviewed by the Attending Physician. Vital Signs: 17:43 BP 148 / 83; Pulse 112; Resp 18; Temp 100.1; Pulse Ox 96% on R/A; ko1 18:25 BP 161 / 73; Pulse 115; Resp 20; Pulse Ox 96% on R/A; ph 19:00 BP 141 / 109; Pulse 110; Resp 18; Pulse Ox 97% on R/A; jw7 20:00 BP 165 / 76; Pulse 107; Resp 16; Pulse Ox 96% on R/A; jw7 21:00 BP 124 / 68; Pulse 94; Resp 18; Pulse Ox 97% on R/A; jw7 23:00 BP 147 / 65; Pulse 91; Resp 18; Temp 98.8; Pulse Ox 100% on R/A; jw7 [place] Coma Score: 23:38 Eye Response: spontaneous(4). Motor Response: obeys commands(6). Verbal Response: rv oriented(5). Total: 15. MDM: 17:23 Patient medically screened. tila 19:38 Differential diagnosis: nonspecific abdominal pain, appendicitis, UTI, urinary tila retention, prostatitis, urethritis, viral Infection, bacterial infection, URI, pneumonia UTI. Data reviewed: vital signs, nurses notes, lab test result(s), EKG, radiologic studies, CT scan, plain films. Consideration of Admission/Observation Escalation of care including admission/observation considered. I considered the following discharge prescriptions or medication management in the emergency department Medications were administered in the Emergency Department. See MAR. Independent interpretation of the following test(s) in the Emergency Department EKG: See my EKG interpretation above. Test considered but Not performed: Ultrasound no abd usg. Care significantly affected by the following chronic conditions: Diabetes, Hypertension, Obesity. Counseling: I had a detailed discussion with the patient and/or guardian regarding the historical points, exam findings, and any diagnostic results supporting the discharge/admit diagnosis, lab results, radiology results, the need for further work-up and treatment in the hospital. 04/08 17:25 Order name: Basic Metabolic Panel; Complete Time: 18:59 [facility] 04/08 17:25 Order name: CBC with Diff; Complete Time: 18:59 [facility] 04/08 17:25 Order name: LFT's; Complete Time: 18:59 [facility] 04/08 17:25 Order name: Magnesium; Complete Time: 18:59 [facility] 04/08 17:25 Order name: NT PRO-BNP; Complete Time: 18:59 [facility] 04/08 17:25 Order name: PT-INR; Complete Time: 18:59 [facility] 04/08 17:25 Order name: Troponin HS; Complete Time: 18:59 [facility] 04/08 17:25 Order name: Lipase; Complete Time: 18:59 [facility] 04/08 17:25 Order name: Blood Culture Adult (2) [facility] 04/08 17:25 Order name: SARS RAPID; Complete Time: 18:59 [facility] 04/08 17:25 Order name: Flu; Complete Time: 18:59 [facility] 04/08 17:25 Order name: Strep [facility] 04/08 17:25 Order name: Lactate w/ 2H reflex if indic.; Complete Time: 18:59 [facility] 04/08 17:25 Order name: Urinalysis w/ reflexes; Complete Time: 18:59 [facility] 04/08 18:47 Order name: Urine Culture [facility] 04/08 19:00 Order name: Throat Culture [facility] 04/08 21:34 Order name: Lactate Sepsis 2 HR Follow-up [facility] 04/08 17:25 Order name: XRAY Chest (1 view); Complete Time: 18:59 [facility] 04/08 19:07 Order name: CT Stone Protocol [facility] 04/08 20:57 Order name: CT [facility] 04/08 17:25 Order name: EKG; Complete Time: 17:25 [facility] 04/08 17:25 Order name: Cardiac monitoring; Complete Time: 18:26 [facility] 04/08 17:25 Order name: EKG - Nurse/Tech; Complete Time: 18:26 [facility] 04/08 17:25 Order name: IV Saline Lock; Complete Time: 18: [facility] 04/08 17:25 Order name: Labs collected and sent; Complete Time: 18: [facility] 04/08 17:25 Order name: O2 Per Protocol; Complete Time: 18: [facility] 04/08 17:25 Order name: O2 Sat Monitoring; Complete Time: 18: [facility] EC:24 Rate is 113 beats/min. Rhythm is regular. QRS [place] is Normal. [place] interval is normal. tila QRS interval is normal. QT interval is normal. No Q waves. T waves are Normal. Clinical impression: Sinus tachycardia and No evidence of ischemia. Interpreted by me. Reviewed by me. Administered Medications: 18:19 Drug: NS 0.9% IV 1000 ml IV at 1 bolus Per protocol; 1000 mL bolus Route: IV; Rate: 1 kc6 bolus; Site: right antecubital; 19:21 Follow up: IV Status: Completed infusion; IV Intake: 1000ml rv 20:49 Follow up: IV Status: Completed infusion; IV Intake: 1000ml rv 18:19 Drug: Rocephin IV 1 grams IV at per protocol once; Given slow IV push per pharmacy kc6 instructions Route: IV; Rate: per protocol; Site: right antecubital; 19:22 Follow up: Response: No adverse reaction; IV Status: Completed infusion rv 19:21 Drug: Acetaminophen PO 1000 mg PO once Route: PO; rv 20:49 Follow up: Response: No adverse reaction rv 19:21 Drug: NS 0.9% IV 1000 ml IV at 1 bolus Per protocol; 1000 mL bolus Route: IV; Rate: 1 rv bolus; Site: right forearm; 20:49 Follow up: IV Status: Completed infusion; IV Intake: 1000ml rv 19:21 Drug: levofloxacin IVPB 500 mg 100 ml IVPB once over 60 mins Volume: 100 ml; Route: rv IVPB; Infused Over: 60 mins; Site: right forearm; 20:49 Follow up: Response: No adverse reaction; IV Status: Completed infusion; IV Intake: rv 100ml 20:48 Drug: Magnesium Sulfate IVPB 2 grams IVPB once over 2 hrs Route: IVPB; Infused Over: 2 rv hrs; Site: right forearm; Disposition Summary: 04/08/23 19:28 Hospitalization Ordered Notes: Hospitalization Status: Inpatient Admission tila Provider: Dilan Martino cha Location: Telemetry/MedSurg (Inpatient) tila Condition: Fair tila Problem: new tila Symptoms: have improved tila Bed/Room Type: Standard [facility] Room Assignment: 431(04/08/23 22:57) cg Diagnosis - UTI/ Urinary tract infection, site not specified tila - Severe sepsis without septic shock tila - Fever, unspecified tila - Obesity, unspecified tila - Elevated white blood cell count tila - Hypomagnesemia tila - Pyelonephritis acute - left, non obstructive tila Forms: - Medication Reconciliation Form tila - SBAR form tila - Leadership Thank You Letter tila Signatures: Dispatcher [employer] Germán Espinal MD MD cha Garcia, Cindy RN RN cg Umer Vera RN RN Clemencia Titus RN RN kc6 Ирина Marrero RN RN ko1 Corrections: (The following items were deleted from the chart) :57 19:28 tila cg
[2023-04-08] MEDS ORDERED: Magnesium Sulfate 2gm IVPB 2 G/50 ML BAG IV ONE (19:48)
--- NOTE | 2023-04-08 20:56 | RAD REPORT ---
EXAM DESCRIPTION: CT - Stone Protocol - 04/08/2023 8:31 pm CLINICAL HISTORY: FLANK PAIN COMPARISON: No comparisons TECHNIQUE: Thin cut axial CT imaging of the abdomen and pelvis was performed without IV contrast. Mu ltiplanar reformats were generated and reviewed. All CT scans are performed using dose optimization technique as appropriate and may include automated exposure control or mA/KV adjustment according to patient size. FINDINGS: No suspicious findings in the lung bases. The liver, spleen, adrenal glands, and pancreas show no suspicious findings. Gallbladder and biliary tree are also without suspicious finding. Left perinephric and periureteric fat stranding. No suspicious parenchymal findings within limits of noncontrast technique. Mild left hydroureter and minimal renal pelvis patency on the left, without ev idence of an obstructing calculus. Punctate calculi at the upper and mid poles, not exceeding 2 mm. N o right hydroureteronephrosis or radiopaque calculi. No dilated bowel loops or bowel wall thickening. No free air, free fluid or inflammatory stranding. N o hernia, mass or bulky lymphadenopathy. The urinary bladder is without significant finding. No suspicious bony findings. IMPRESSION: Left perinephric and periureteric fat stranding with mild left hydroureter. Findings may relate to a recently passed calculus or ongoing infection. Nonobstructing left renal calculi not exceeding 2 mm.
[2023-04-08] MEDS: MAGNESIUM OXIDE 400 MG TAB PO SCH (23:20)
[2023-04-08] MEDS: NA CHLORIDE 0.9% 1,000 ML IV SCH (23:20)
[2023-04-08] MEDS: FAMOTIDINE 20 MG/2 ML VIAL IV SCH (23:20)
[2023-04-08] MEDS ORDERED: ONDANSETRON 4 MG/2 ML VIAL IV PRN (23:20)
[2023-04-08] MEDS ORDERED: ACETAMINOPHEN 500 MG TAB PO PRN (23:20)
[2023-04-08] MEDS: CEFTRIAXONE 1,000 MG in NA CHLORIDE 0.9% 50 ML IVPB SCH (23:20)
[2023-04-08] MEDS ORDERED: MAGNESIUM OXIDE 400 MG TAB ONE (23:33)
[2023-04-08] MEDS ORDERED: FAMOTIDINE 20 MG TAB ONE (23:34)
[2023-04-08] MEDS ORDERED: MORPHINE 4 MG/ML SYR ONE (23:34)
[2023-04-08] MEDS: MORPHINE 4 MG/ML SYR IV PRN (23:35)
[2023-04-09 01:07] VITALS: BMI 33.3
[2023-04-09 07:11] LABS: Absolute Lymphocytes (CBC) 1.1 K/uL (0.7-4.9); Lymphocytes % 11.9 % (15.3-44.8); MCV 82.9 fL (80-100); Platelets 211 thou/uL (152-406); RBC Red Blood Cell Count 3.86 M/uL (4.33-5.43)
[2023-04-09 07:16] LABS: Potassium 3.4 mEq/L (3.5-5.1)
--- NOTE | 2023-04-09 07:57 | P.HP ---
Certification for Inpatient Patient admitted to: Inpatient With expected LOS: >2 Midnights Patient will require the following post-hospital care: None Practitioner: I am a practitioner with admitting privileges, knowledge of patient current condition, hospital course, and medical plan of care. Services: Services provided to patient in accordance with Admission requirements found in Title 42 Section 412.3 of the Code of Federal Regulations Patient History Date of Service: 04/09/23 Primary Care Provider: Gunner Reason for admission: UTI History of Present Illness: Patients visiting home nurse called the office yesterday. Patient was told to go to the ER. Was found to have a UTI. He has a history of htn, dm2, recently had a cervical fracture that he has been seen by Dr. Daniel Richard. This morning he is bit tearful. He states his pain is 6/10. He has stable vitals. He chronically assumes the sick role. He calms down when spoken to calmly. discussed his pain management and the treatment of the UTI. He seemed better after learning the treatment plan. Asked for more pain medications for his shoulder. Informed him that the pain med will affect his hold body. Dangerous to give pain meds for each seperate pain Allergies No Known Allergies Allergy (Verified 01/01/23 20:51) Home Medications: Aspirin Chewable [Aspirin Chewable*] 81 mg PO DAILY 01/02/23 Atorvastatin Calcium [Lipitor] 80 mg PO DAILY 01/02/23 Bupropion *Xl* [Wellbutrin XL*] 150 mg PO DAILY 01/02/23 Fenofibrate [Tricor*] 160 mg PO DAILY 01/02/23 Gabapentin 300 mg PO DAILY 01/02/23 Levothyroxine Sodium 150 mcg PO DAILY 01/02/23 Lisinopril [Zestril] 20 mg PO DAILY 01/02/23 Meclizine HCl 25 mg PO TID 01/02/23 Metformin HCl 500 mg PO BID 01/02/23 Metoprolol Tartrate [Lopressor*] 25 mg PO BID 01/02/23 Multivitamin 1 tab PO DAILY 01/02/23 Niacin 500 mg PO DAILY 01/02/23 Pantoprazole [Protonix Tab*] 40 mg PO DAILY 01/02/23 Prazosin HCl [Minipress*] 1 mg PO DAILY 01/02/23 Semaglutide [Ozempic] 1 04/09/23 Sertraline HCl [Zoloft] 100 04/09/23 - Past Medical/Surgical History Diabetic: Yes -: hyperlipidemia -: hypertension -: cad -: insomnia -: thyroid -: niddm -: neuropathy -: vertigo -: cabg x 2 -: back surgeries -: left knee sx - Family History Mother -: Diabetes Father -: Heart disease - Social History Smoking Status: Former smoker Alcohol use: No CD- Drugs: No Caffeine use: Yes Place of Residence: Home Review of Systems 10-point ROS is otherwise unremarkable General: Fever Musculoskeletal: Neck Pain Physical Examination - Vital Signs Temperature: 98.0 F Blood Pressure: 160/77 Pulse: 91 Respirations: 20 Pulse Ox (%): 96 - Physical Exam General: Alert, In no apparent distress HEENT: Atraumatic, PERRLA, Mucous membr. moist/pink, EOMI, Sclerae nonicteric Neck: Supple, 2+ carotid pulse no bruit, No LAD, Without JVD or thyroid abnormality Respiratory: Clear to auscultation bilaterally, Normal air movement Cardiovascular: Regular rate/rhythm, Normal S1 S2 Gastrointestinal: Normal bowel sounds, No tenderness Musculoskeletal: No tenderness Integumentary: No rashes Neurological: Normal gait, Normal speech, Normal strength at 5/5 x4 extr, Normal tone, Normal affect Lymphatics: No axilla or inguinal lymphadenopathy - Studies Laboratory Data (last 24 hrs) 04/08/23 04/08/23 04/08/23 18:10 18:10 18:10 WBC 13.20 H Hgb 12.0 L Hct 35.7 L Plt Count 254 PT 14.9 H INR 1.37 Sodium 127 L Potassium 3.5 BUN 12 Creatinine 1.49 H Glucose 186 H Magnesium 1.3 L Total Bilirubin 0.4 AST 15 ALT 27 Alkaline Phosphatase 59 Lipase 27 Microbiology Data (last 24 hrs): 04/08/23 18:15 Nasopharnyx Influenza Type A Antigen Screen - Final 04/08/23 18:15 Nasopharnyx Influenza Type B Antigen Screen - Final 04/08/23 18:15 Throat Group A Streptococcus Rapid Screen - Final Assessment and Plan - Problems (Diagnosis) (1) UTI (urinary tract infection) Current Visit: Yes Status: Acute Plan: currently on fluids and ceftriaxone. Will await any cultures and discharge with appropriate oral antibiotics Qualifiers: Urinary tract infection type: acute cystitis Qualified Code(s): N30.00 - Acute cystitis without hematuria (2) Cervical spine fracture Current Visit: Yes Status: Chronic Qualifiers: Encounter type: subsequent encounter Fracture morphology: burst- stable Fracture healing: with routine healing Qualified Code(s): S12.01XD - Stable burst fracture of first cervical vertebra, subsequent encounter for fracture with routine healing (3) DM2 (diabetes mellitus, type 2) Current Visit: No Status: Chronic Plan: start his home medications and sliding scale insulin Qualifiers: Diabetes mellitus snf insulin use: without oysterman use Diabetes mellitus complication status: without complication Qualified Code(s): E11.9 - Type 2 diabetes mellitus without complications (4) HTN (hypertension) Current Visit: No Status: Chronic Plan: restart his home meds. Adjust as needed. Qualifiers: Hypertension type: primary hypertension Qualified Code(s): I10 - Essential (primary) hypertension Discharge Plan: Home Plan to discharge in: 24 Hours - Advance Directives Does patient have a Living Will: Yes Does patient have a Durable POA for Healthcare: Yes - Code Status/Comfort Care Code Status Assessed: No Code Status: Full Code Critical Care: No Time Spent Managing Pts Care (In Minutes): 50
[2023-04-09] MEDS ORDERED: GLUCAGON 1 MG/VIAL IM PRN (08:00)
[2023-04-09] MEDS ORDERED: D50W 25 GM/50 ML SYRINGE IV PRN (08:00)
[2023-04-09] MEDS ORDERED: D10W 125 ML IV PRN (08:03)
[2023-04-09] MEDS: ASPIRIN 81 MG CHEWABLE TABLET PO SCH (08:07)
[2023-04-09] MEDS: ENOXAPARIN 40 MG/0.4 ML SQ SCH (08:07)
[2023-04-09] MEDS: GABAPENTIN 300 MG CAP PO SCH (08:08)
[2023-04-09] MEDS: LEVOTHYROXINE SOD 0.075 MG TAB PO SCH (08:09)
[2023-04-09] MEDS: lisinopriL 20 MG TAB PO SCH (08:28)
[2023-04-09] MEDS: PANTOPRAZOLE 40MG TABLET PO SCH (08:29)
[2023-04-09] MEDS: METOPROLOL TAR 25 MG TAB PO SCH (08:29)
[2023-04-09] MEDS: BUPROPION HCL XL 150 MG TAB PO SCH (08:31)
[2023-04-09] MEDS: OXYCODONE HCL 5 MG TAB PO SCH (08:36)
[2023-04-09] MEDS ORDERED: HOME MED 1 EA UNK (Levothyroxine Sodium [Levothyroxine Sodium] 150 MCG Tablet) PO SCH (09:00)
[2023-04-09] MEDS: MECLIZINE HCL 12.5 MG TAB PO SCH (09:00)
[2023-04-09] MEDS: ACETAMINOPHEN 500 MG TAB PO PRN (09:30)
[2023-04-09] MEDS: INSULIN REGULAR (HUMAN) 100 UNIT/ML SQ SCH (11:30)
--- NOTE | 2023-04-09 12:56 | EKG ---
Test Date: 2023-04-08 Test Time: 18:24:28 Professor Of Physics: DIDI MEASUREMENT RESULTS: Intervals: Rate: 113 ID: [id number] QRSD: 94 QT: 304 QTc: 416 [place]: P: 36 ID: [id number] QRS: 88 T: 40 INTERPRETIVE STATEMENTS: Sinus tachycardia Otherwise normal ECG Compared to ECG 03/19/2023 14:11:31 Sinus rhythm no longer present Electronically Signed On 04-09-23 12:52:42 LEAD MECHANICAL ENGINEER by Inocencio Stockton
[2023-04-09] MEDS: ATORVASTATIN 80 MG TAB PO SCH (22:19)
[2023-04-10 06:13] LABS: Absolute Lymphocytes (CBC) 1.1 K/uL (0.7-4.9); Hematocrit 31.8 % (39.6-49.0); Lymphocytes % 18.5 % (15.3-44.8); MPV 8.6 fL (7.6-11.3); Platelets 236 thou/uL (152-406); RBC Red Blood Cell Count 3.79 M/uL (4.33-5.43)
[2023-04-10 06:40] LABS: Albumin 2.5 g/dL (3.4-5.0); Bilirubin Total 0.3 mg/dL (0.2-1.0); Potassium 3.6 mEq/L (3.5-5.1); Protein, Total 6.6 g/dL (6.4-8.2); Thyroid Stimulating Hormone 1.84 uIU/mL (0.358-3.740)
--- NOTE | 2023-04-10 08:06 | P.PN ---
Subjective Date of Service: 04/10/23 Primary Care Provider: Gunner Chief Complaint: UTI Subjective: Improving (Patient has 1/2 blood cultures positive for gm -ve rods) Review of Systems 10-point ROS is otherwise unremarkable Physical Examination - Vital Signs Temperature: 97.7 F Blood Pressure: 158/77 Pulse: 93 Respirations: 18 Pulse Ox (%): 96 - Physical Exam General: Alert, In no apparent distress HEENT: Atraumatic, PERRLA, EOMI Neck: Supple, JVD not distended Respiratory: Clear to auscultation bilaterally, Normal air movement Cardiovascular: Regular rate/rhythm, Normal S1 S2 Gastrointestinal: Normal bowel sounds, No tenderness Musculoskeletal: No tenderness Integumentary: No rashes Neurological: Normal speech, Normal tone, Normal affect Lymphatics: No axilla or inguinal lymphadenopathy Assessment And Plan - Current Problems (Diagnosis) (1) UTI (urinary tract infection) Current Visit: Yes Status: Acute Plan: currently on fluids and ceftriaxone. Will await any cultures and discharge with appropriate oral antibiotics 2.7 Patient has 1/2 gm -ve rods. Will wait for antibiotigram. So we can discharge him on the right antibiotic Qualifiers: Urinary tract infection type: acute cystitis Qualified Code(s): N30.00 - Acute cystitis without hematuria (2) Cervical spine fracture Current Visit: Yes Status: Chronic Qualifiers: Encounter type: subsequent encounter Fracture morphology: burst- stable Fracture healing: with routine healing Qualified Code(s): S12.01XD - Stable burst fracture of first cervical vertebra, subsequent encounter for fracture with routine healing (3) DM2 (diabetes mellitus, type 2) Current Visit: No Status: Chronic Plan: start his home medications and sliding scale insulin Qualifiers: Diabetes mellitus termite control representative insulin use: without alf use Diabetes mellitus complication status: without complication Qualified Code(s): E11.9 - Type 2 diabetes mellitus without complications (4) HTN (hypertension) Current Visit: No Status: Chronic Plan: restart his home meds. Adjust as needed. 2 will increase the lisinopril to 40mg Qualifiers: Hypertension type: primary hypertension Qualified Code(s): I10 - Essential (primary) hypertension - Code Status/Comfort Care Code Status Assessed: No Physician Review: Patient Assessed, Agree with Above Assessment and Plan Critical Care: No Time Spent Managing PTS Care (In Minutes): 20
[2023-04-10] MEDS: lisinopriL 20 MG TAB PO SCH (08:53)
[2023-04-10] MEDS: MORPHINE 4 MG/ML SYR IV PRN (17:25)
[2023-04-11 05:48] LABS: Absolute Lymphocytes (CBC) 1.2 K/uL (0.7-4.9); Hematocrit 31.1 % (39.6-49.0); Lymphocytes % 24.5 % (15.3-44.8); MCV 83.9 fL (80-100); MPV 8.7 fL (7.6-11.3); Platelets 258 thou/uL (152-406)
[2023-04-11 06:13] LABS: Albumin 2.5 g/dL (3.4-5.0); Bilirubin Total 0.2 mg/dL (0.2-1.0); Potassium 3.5 mEq/L (3.5-5.1); Protein, Total 6.4 g/dL (6.4-8.2)
--- NOTE | 2023-04-11 07:56 | P.DS ---
Admission Date: 04/08/23 Discharge Date: 04/11/23 Primary Care Provider: Gunner Disposition: ROUTINE DISCHARGE Discharge Condition: GOOD Reason for Admission: UTI - Problems (1) UTI (urinary tract infection) Current Visit: Yes Status: Acute Qualifiers: Urinary tract infection type: acute cystitis Qualified Code(s): N30.00 - Acute cystitis without hematuria (2) Cervical spine fracture Current Visit: Yes Status: Chronic Qualifiers: Encounter type: subsequent encounter Fracture morphology: burst- stable Fracture healing: with routine healing Qualified Code(s): S12.01XD - Stable burst fracture of first cervical vertebra, subsequent encounter for fracture with routine healing (3) DM2 (diabetes mellitus, type 2) Current Visit: No Status: Chronic Qualifiers: Diabetes mellitus moth exterminator insulin use: without moth exterminator use Diabetes mellitus complication status: without complication Qualified Code(s): E11.9 - Type 2 diabetes mellitus without complications (4) HTN (hypertension) Current Visit: No Status: Chronic Qualifiers: Hypertension type: primary hypertension Qualified Code(s): I10 - Essential (primary) hypertension Brief History of Present Illness: Patients visiting home nurse called the office yesterday. Patient was told to go to the ER. Was found to have a UTI. He has a history of htn, dm2, recently had a cervical fracture that he has been seen by Dr. Daniel Richard. This morning he is bit tearful. He states his pain is 6/10. He has stable vitals. He chronically assumes the sick role. He calms down when spoken to calmly. discussed his pain management and the treatment of the UTI. He seemed better after learning the treatment plan. Asked for more pain medications for his shoulder. Informed him that the pain med will affect his hold body. Dangerous to give pain meds for each seperate pain Hospital Course: Patient was admitted for uti. Was started on iv ceftriaxone. His cultures showed e. Coli in urine and 1/2 blood cultures. Sensitive to many drugs. Will send him home on cipro 500mg po bid. His bp was uncontrolled. Have increased his lisinopril to 40mg. Anxiety may play a role. Hopefully will be more comfortable at home. He can follow up with me in a week. Thank you for letting me be a part of his care. Vital Signs/Physical Exam: Temp Pulse Resp BP Pulse Ox 96.9 F 80 18 165/75 H 96 02/08/24 06:48 04/11/23 06:48 04/11/23 06:48 04/11/23 06:48 04/11/23 06:48 General: Alert, In no apparent distress HEENT: Atraumatic, PERRLA, EOMI Neck: Supple, JVD not distended Respiratory: Clear to auscultation bilaterally, Normal air movement Cardiovascular: Regular rate/rhythm, Normal S1 S2 Gastrointestinal: Normal bowel sounds, No tenderness Musculoskeletal: No tenderness Integumentary: No rashes Neurological: Normal speech, Normal tone, Normal affect Lymphatics: No axilla or inguinal lymphadenopathy Laboratory Data at Discharge: WBC 4.70 thou/uL (4.3-10.9) 04/11/23 05:28 Hgb 10.6 g/dL (13.6-17.9) L 04/11/23 05:28 Hct 31.1 % (39.6-49.0) L 04/11/23 05:28 Plt Count 258 thou/uL (152-406) 04/11/23 05:28 PT 14.9 SECONDS (9.5-12.5) H 04/08/23 18:10 INR 1.37 04/08/23 18:10 Sodium 137 mEq/L (136-145) 04/11/23 05:28 Potassium 3.5 mEq/L (3.5-5.1) 04/11/23 05:28 BUN 13 mg/dL (7-18) 04/11/23 05:28 Creatinine 1.06 mg/dL (0.70-1.30) 04/11/23 05:28 Glucose 134 mg/dL (74-106) H 04/11/23 05:28 Magnesium 1.3 mg/dL (1.6-2.4) L 04/08/23 18:10 Total Bilirubin 0.2 mg/dL (0.2-1.0) 04/11/23 05:28 AST 60 U/L (15-37) H 04/11/23 05:28 ALT 98 U/L (16-61) H 04/11/23 05:28 Alkaline Phosphatase 85 U/L (45-117) D 04/11/23 05:28 Lipase 27 U/L (13-75) 04/08/23 18:10 Home Medications: Aspirin Chewable [Aspirin Chewable*] 81 mg PO DAILY 01/02/23 Atorvastatin Calcium [Lipitor] 80 mg PO DAILY 01/02/23 Bupropion *Xl* [Wellbutrin XL*] 150 mg PO DAILY 01/02/23 Fenofibrate [Tricor*] 160 mg PO DAILY 01/02/23 Gabapentin 300 mg PO DAILY 01/02/23 Levothyroxine Sodium 150 mcg PO DAILY 01/02/23 Lisinopril [Zestril] 20 mg PO DAILY 01/02/23 Meclizine HCl 25 mg PO TID 01/02/23 Metformin HCl 500 mg PO BID 01/02/23 Metoprolol Tartrate [Lopressor*] 25 mg PO BID 01/02/23 Multivitamin 1 tab PO DAILY 01/02/23 Niacin 500 mg PO DAILY 01/02/23 Pantoprazole [Protonix Tab*] 40 mg PO DAILY 01/02/23 Prazosin HCl [Minipress*] 1 mg PO DAILY 01/02/23 Semaglutide [Ozempic] 1 04/09/23 Sertraline HCl [Zoloft] 100 04/09/23 Ciprofloxacin HCl [Cipro 500 MG Tablet] 500 mg PO BID 5 Days #10 tab 04/11/23 Lisinopril [Zestril] 40 mg PO DAILY 90 Days #90 tab 04/11/23 New Medications: Ciprofloxacin HCl [Cipro 500 MG Tablet] 500 mg PO BID 5 Days #10 tab Lisinopril [Zestril] 40 mg PO DAILY 90 Days #90 tab Diet: ADA Activity: Ad yusra Followup: Dilan Martino MD [Primary Care Provider] - Time spent managing pt's care (in minutes): 30
[2023-04-11 10:42] VITALS: O2SAT 96
[2023-04-11 14:43] VITALS: BP 152/80; TEMP 98.2
== END 2023-04-11 14:06 | disposition home health service (06) | DRG 872 ==
LOC: ER 17:12 → ERHOLD 19:33 → 4TH 23:07
PROVIDERS: ADMIT Internal Medicine; ATTEND Internal Medicine
DX: A41.51 Sepsis due to Escherichia coli [E. coli] (principal); E87.20 Acidosis, unspecified; E87.1 Hypo-osmolality and hyponatremia; N10 Acute pyelonephritis; R65.20 Severe sepsis without septic shock; E11.40 Type 2 diabetes mellitus with diabetic neuropathy, unspecified; F41.9 Anxiety disorder, unspecified; I10 Essential (primary) hypertension; E03.9 Hypothyroidism, unspecified; E83.42 Hypomagnesemia; S12.01XD Stable burst fracture of first cervical vertebra, subsequent encounter for fracture with routine healing; Z95.1 Presence of aortocoronary bypass graft; Z11.52 Encounter for screening for COVID-19; Z79.82 Long term (current) use of aspirin; Z79.890 Hormone replacement therapy; Z79.899 Other long term (current) drug therapy; Z87.891 Personal history of nicotine dependence
CPT/HCPCS: 36415; 71045; 74176; 76377; 80048; 80053; 80076; 81001; 82947; 83605; 83690; 83735; 83880; 84443; 84484; 85025; 85610; 87040; 87070; 87077; 87081; 87086; 87088; 87186; 87205; 87804; 87811; 93005; 99285; J0696; J1650; J1815; J3475; J7030; J8597

== ENCOUNTER 2023-11-07 07:58 | Observation (INO) | payer OTHER ==
[2023-11-07] MEDS ORDERED: TDAP (DIPHTH,PERTUSS(ACELL),TET VAC) 0.5 ML VIAL IMVAC ONE (08:51)
--- NOTE | 2023-11-07 09:01 | RAD REPORT ---
EXAM DESCRIPTION: Rafa Single View11/07/2023 8:49 am CLINICAL HISTORY: Chest pain COMPARISON: April 2023 FINDINGS: The lungs appear clear of acute infiltrate. The heart is normal size. Postsurgical changes involve the chest IMPRESSION: No acute abnormalities displayed
[2023-11-07] MEDS ORDERED: LIDOCAINE 2% W/EPI 1:200,000 MPF 20 ML VIAL IM ONE (09:10)
[2023-11-07] MEDS ORDERED: LIDOCAINE 1% 20 ML MDV ONE (09:10)
[2023-11-07 09:24] LABS: Absolute Basophils 0.1 K/uL (0-0.5); Absolute Eosinophils 0.2 K/uL (0-0.5); Absolute Monocytes 0.6 K/uL (0.1-1.3); Absolute Neutrophil 4.4 K/uL (1.8-8.0); Basophils % 0.8 % (0-1.3); Eosinophils % 2.4 % (0-4.4); Hematocrit 42.3 % (39.6-49.0); Hemoglobin 14.2 g/dL (13.6-17.9); Lymphocytes % 27.3 % (15.3-44.8); MCH 28.1 pg (27.0-35.0); MCHC 33.4 g/dL (32.0-36.0); MCV 83.9 fL (80-100); MPV 9.5 fL (7.6-11.3); Monocytes % 8.1 % (3.3-12.3); Neutrophils % 61.4 % (41.7-73.7); Nucleated Red Blood Cells % 0.1 % (0-0); Platelets 214 thou/uL (152-406); RBC Red Blood Cell Count 5.04 M/uL (4.33-5.43)
[2023-11-07 09:41] LABS: Troponin High Sensitivity 7.8 pg/mL (<58.9)
--- NOTE | 2023-11-07 09:41 | RAD REPORT ---
EXAM DESCRIPTION: CT - Head C Spine Mpr Wo Con - 11/07/2023 9:04 am CLINICAL HISTORY: Head and neck injury status post fall. Head and neck pain COMPARISON: March 2023 TECHNIQUE: Computed axial tomography of the head and cervical spine was obtained. Sagittal and coronal reconstruction was performed. All CT scans are performed using dose optimization technique as appropriate and may include automated exposure control or mA/KV adjustment according to patient size. FINDINGS: An intracranial bleed is not seen. The ventricles are normal in caliber. No significant hypodensity within the brain. An extra-axial fluid collection is not noted. Fluid within the visualized sinuses and mastoids is not seen Partial healing of the C1 and C2 fractures No acute cervical fracture is seen. No dislocation. Loss of the normal lordosis unchanged from prior exam. Spondylosis involves the cervical spine IMPRESSION: No acute intracranial abnormality is seen. Partial healing of the C1 and C2 fractures. No acute cervical fracture noted If the patient continues to have symptoms to suggest intracranial /spinal cord pathology then MRI wou ld be recommended
--- NOTE | 2023-11-07 10:26 | ER ---
Nurse's Notes [facility] Name: Rigo Gonzalez Age: 68 yrs Sex: Male : 1955 Arrival Date: 11/07/2023 Time: 07:58 Bed 18 Private MD: Diagnosis: Syncope Near;Essential (primary) hypertension;Laceration without foreign body of unspecified part of head;Laceration without foreign body, right foot;Unspecified injury of head, initial encounter;Dizziness and giddiness Presentation: 11/06 08:09 Coronavirus screen: At this time, the client does not indicate any symptoms associated ld1 with coronavirus-19. Ebola Screen: No symptoms or risks identified at this time. Risk Assessment: Do you want to hurt yourself or someone else? Patient reports no desire to harm self or others. Onset of symptoms was November 07, 2023. 08:09 Method Of Arrival: Wheelchair ld1 08:09 Acuity: HESHAM 2 ld1 08:10 Chief complaint: Patient states: Pt was using bathroom at home and fell in restroom. Pt ld1 hit bathtub with forehead - laceration to forehead. Denies LOC - pt reports taking 1 baby aspirin daily. Triage Assessment: 08:10 General: Appears in no apparent distress. comfortable, Behavior is calm, cooperative, ld1 appropriate for age. Pain: Denies pain. EENT: No signs and/or symptoms were reported regarding the EENT system. Neuro: Level of Consciousness is awake, alert, obeys commands, Oriented to person, place, time, situation, Appropriate for age. Cardiovascular: Capillary refill < 3 seconds Patient's skin is warm and dry. Respiratory: Airway is patent Respiratory effort is even, unlabored. GI: Abdomen is round non-distended. : No signs and/or symptoms were reported regarding the genitourinary system. Derm: No signs and/or symptoms reported regarding the dermatologic system. Musculoskeletal: No signs and/or symptoms reported regarding the musculoskeletal system. Injury Description: Laceration sustained to forehead. Historical: - Allergies: 08: No Known Allergies; ld1 - PMHx: 08:09 Diabetes - NIDDM; Hypertension; Hypothyroidism; neuropathy; Vertigo; ld1 - PSHx: 08:09 Coronary artery bypass graft; triple; ld1 - Immunization history:: Adult Immunizations up to date. - Infectious Disease History:: Denies. - Social history:: Smoking status: Patient denies any tobacco usage or history of. Screenin:13 [facility] ED Fall Risk Assessment (Adult) History of falling in the last 3 months, ld1 including since admission Yes- single mechanical fall (1 pt) Confusion or Disorientation No (0 pts) Intoxicated or Sedated No (0 pts) Impaired Gait No (0 pts) Mobility Assist Device Used No (0 pt) Altered Elimination No (0 pt) Score/Fall Risk Level 0 - 2 = Low Risk Oriented to surroundings, Maintained a safe environment, Educated pt \T\ family on fall prevention, incl call for assistance when getting out of bed, Assessed \T\ reinforced patient's understanding of fall precautions, Provided non-skid footwear, Hourly rounding (assess needs \T\ fall precautionary measures) done, Used ambulatory aids as needed (educated on \T\ assisted with), Used gait belt as appropriate. Abuse screen: Denies threats or abuse. Denies injuries from another. Nutritional screening: No deficits noted. Tuberculosis screening: No symptoms or risk factors identified. Assessment: 08:12 Reassessment: See triage assessment. ld1 10:14 Reassessment: Patient appears in no apparent distress at this time. No changes from ld1 previously documented assessment. Patient and/or family updated on plan of care and expected duration. Pain level reassessed. Patient is alert, oriented x 3, equal unlabored respirations, skin warm/dry/pink. Vital Signs: 08:17 BP 142 / 74; Pulse 89; Resp 17; Temp 98.2; Pulse Ox 98% ; Weight 125.65 kg; Height 6 dd2 ft. 2 in. ; 09:19 BP 148 / 85; Pulse 82; Resp 18; Pulse Ox 95% on R/A; ld1 10:14 BP 148 / 77; Pulse 80; Resp 18; Pulse Ox 99% on R/A; ld1 12:16 BP 169 / 89; Pulse 97; Resp 18; Pulse Ox 98% on R/A; ld1 08:17 Body Mass Index 35.56 (125.65 kg, 187.96 cm) dd2 ED Course: 08:00 Patient arrived in ED. mg5 08:04 Bertrand Ro DO is Attending Physician. ms3 08:09 Alia Ro, RN is Primary Nurse. ld1 08:09 Triage completed. ld1 08:10 Arm band placed on right wrist. ld1 08:13 Patient has correct armband on for positive identification. Placed in gown. Bed in low ld1 position. Call light in reach. Side rails up X2. server programmer on. Pulse ox on. NIBP on. Door closed. Noise minimized. Warm blanket given. 08:47 EKG done, by ED staff, reviewed by Bertrand Ro DO. dd2 08:51 XRAY Chest (1 view) In Process Unspecified. EDMS 09:05 CT Head C Spine In Process Unspecified. EDMS 09:19 Inserted saline lock: 20 gauge in right antecubital area, using aseptic technique. ld1 Blood collected. Flushed with 10 mL NS. 09:20 Patient requests pain medication. Notified ERP. ld1 10:23 Dilan Martino MD is Hospitalizing Provider. ms3 11:33 1133 CM met with patient at the bedside in the ED exam room. Patient identified by name ane and . Demographic sheet confirmed. Mr. Gonzalez reports he lives with his Rachael in a single story home, and that prior to admission, he performs ADLs independently with use of a cane. Other DME in his home includes a walker from use from his previous fall. Patient also expressed interest in a wheelchair. No home oxygen but states he has HH through [facility] .Patient states he had PT and nurse visits through [facility], and wishes to continue HH services. wishes to return home and continue [facility] services upon discharge. He states his , or several members of his family are available to transport him home when discharged. CM team will continue to follow and coordinate care. [id number] CM reached out to [employer] from [facility] to verify services and inform of patient's admission. awaiting response. Administered Medications: 09:30 Drug: Boostrix Tdap IM 0.5 ml IM once; as a single dose Route: IM; Site: right deltoid; ld1 09:47 Follow up: Response: No adverse reaction ld1 09:30 Drug: Lidocaine Infiltration (1 %) 10 ml 20 ml Infiltration once; to bedside {Note: ld1 Administered by Dr. Ro.} Volume: 20 ml; Route: Infiltration; 09:44 Follow up: Response: No adverse reaction ld1 09:30 Drug: Lidocaine-Epinephrine Infiltration -1%: (1:100,000) 20 ml 20 ml Infiltration ld1 once; to bedside Volume: 20 ml; Route: Infiltration; :44 Follow up: Response: No adverse reaction ld1 Outcome: 10:25 Decision to Hospitalize by Provider. ms3 12:52 Patient left the ED. aa5 Signatures: Dispatcher [employer] EDBonny Lima RN RN aa5 Bertrand Ro DO DO ms3 Alia Ro RN RN ld1 Radha Garcia mg5 Allie Nicholas RN RN ane DAVIS, DIANA, RN RN dd2 Corrections: (The following items were deleted from the chart) 08:12 08:09 Coronavirus screen: At this time, the client does not indicate any symptoms ld1 associated with coronavirus-19. ld1 08:13 08:10 Chief complaint: Patient states: Pt was using bathroom at home and fell in ld1 restroom. Pt hit bathtub with forehead - laceration to forehead. Denies LOC ld1 08:14 08:13 No provider procedures requiring assistance completed. ld1 ld1
--- NOTE | 2023-11-07 10:26 | EDPHYS ---
Physician Documentation [facility] Name: Rigo Gonzalez Age: 68 yrs Sex: Male : 1955 Arrival Date: 11/07/2023 Time: 07:58 Bed 18 Private MD: ED Physician Bertrand Ro HPI: 11/06 09:01 This 68 yrs old Male presents to ER via Wheelchair with complaints of Fall ms3 Injury, Laceration - BloodThinners. 09:01 68-year-old male with past medical history of diabetes, hypertension, hypothyroidism, ms3 neuropathy, vertigo presents to the emergency department status post fall. Patient states he was walking into the bathroom when he became dizzy falling and striking his head on the bathtub. Patient denies loss of consciousness. Patient states he takes aspirin daily. Historical: - Allergies: 08: No Known Allergies; ld1 - PMHx: 08:09 Diabetes - NIDDM; Hypertension; Hypothyroidism; neuropathy; Vertigo; ld1 - PSHx: 08:09 Coronary artery bypass graft; triple; ld1 - Immunization history:: Adult Immunizations up to date. - Infectious Disease History:: Denies. - Social history:: Smoking status: Patient denies any tobacco usage or history of. ROS: 09:01 Constitutional: Negative for fever, and chills. Cardiovascular: Negative for chest ms3 pain, and palpitations. Respiratory: Negative for shortness of breath, cough, wheezing, and pleuritic chest pain, Abdomen/GI: Negative for abdominal pain, nausea, vomiting, diarrhea, and constipation, 09:01 Skin: Positive for laceration(s), Exam: 09:01 Constitutional: This is a well developed, well nourished patient who is awake, alert, ms3 and in no acute distress. Chest/axilla: Normal chest wall appearance and motion. Nontender with no deformity. Cardiovascular: Regular rate and rhythm with a normal S1 and S2. No gallops, murmurs, or rubs. Normal PMI, no JVD. No pulse deficits. Respiratory: Lungs have equal breath sounds bilaterally, clear to auscultation and percussion. No rales, rhonchi or wheezes noted. No increased work of breathing, no retractions or nasal flaring. Abdomen/GI: Soft, non-tender, with normal bowel sounds. No distension or tympany. No guarding or rebound. No evidence of tenderness throughout. 09:01 Skin: injury, laceration(s), the wound is approximately 6 cm(s), of the forehead, the second wound is approximately 2 cm(s), of the Right foot, 10:27 ECG was reviewed by the Attending Physician. ms3 Vital Signs: 08:17 BP 142 / 74; Pulse 89; Resp 17; Temp 98.2; Pulse Ox 98% ; Weight 125.65 kg; Height 6 dd2 ft. 2 in. ; 09:19 BP 148 / 85; Pulse 82; Resp 18; Pulse Ox 95% on R/A; ld1 10:14 BP 148 / 77; Pulse 80; Resp 18; Pulse Ox 99% on R/A; ld1 12:16 BP 169 / 89; Pulse 97; Resp 18; Pulse Ox 98% on R/A; ld1 08:17 Body Mass Index 35.56 (125.65 kg, 187.96 cm) dd2 Laceration: 10:25 Wound Repair of 6cm ( 2.4in ) subcutaneous laceration to forehead. Linear shaped.. ms3 Distal neuro/vascular/tendon intact. Anesthesia: Local anesthetic administered with 5 mls of 2% Lidocaine with epi. Wound prep: Simple cleansing by me. Skin closed with 5 5-0 Prolene using simple sutures and sterile technique. Patient tolerated well. 10:25 Wound Repair of 2cm ( 0.8in ) subcutaneous laceration to Right 3rd toe. Distal ms3 neuro/vascular/tendon intact. Anesthesia: Local anesthetic administered with 3 mls of 1% lidocaine. Wound prep: Simple cleansing by me. Skin closed with 3 4-0 Prolene using simple sutures and sterile technique. Patient tolerated well. MDM: 08:34 Patient medically screened. ms3 09:01 Differential diagnosis: abrasion, closed head injury, contusion, laceration, sprain, ms3 strain. 10:27 Data reviewed: vital signs, nurses notes, lab test result(s), EKG, radiologic studies, ms3 and as a result, I will admit patient. Consideration of Admission/Observation Patient was admitted/placed on observation. Management of patient was discussed with the following: Hospitalist: Dr Martino- Accepts patient as observation. I considered the following discharge prescriptions or medication management in the emergency department Medications were administered in the Emergency Department. See MAR. Independent interpretation of the following test(s) in the Emergency Department EKG: See my EKG interpretation above. Counseling: I had a detailed discussion with the patient and/or guardian regarding the historical points, exam findings, and any diagnostic results supporting the discharge/admit diagnosis, lab results, radiology results, the need for further work-up and treatment in the hospital. ED course: Case discussed with Dr. Martino and he accepts patient as observation. All questions were answered. 11/06 08:36 Order name: Basic Metabolic Panel; Complete Time: 10:03 ms3 11/06 08:36 Order name: CBC with Diff; Complete Time: 10:03 ms3 11/06 08:36 Order name: Troponin HS; Complete Time: 10:03 ms3 11/06 12:24 Order name: Magnesium EDMS 11/06 12:24 Order name: Thyroid Stimulating Hormone EDMS 11/06 12:24 Order name: CBC with Automated Diff EDMS 11/06 12:24 Order name: CBC with Automated Diff EDMS 11/06 12:24 Order name: CBC with Automated Diff EDMS 11/06 12:24 Order name: CBC with Automated Diff EDMS 11/06 12:24 Order name: Comprehensive Metabolic Panel EDMS 11/06 12:24 Order name: Comprehensive Metabolic Panel EDMS 11/06 12:24 Order name: Comprehensive Metabolic Panel EDMS 11/06 12:24 Order name: Comprehensive Metabolic Panel EDMS 11/06 08:35 Order name: CT Head C Spine; Complete Time: 10:03 ms3 11/06 08:36 Order name: XRAY Chest (1 view); Complete Time: 10:03 ms3 11/06 08:36 Order name: EKG; Complete Time: 08:36 ms3 11/06 12:23 Order name: CONS Physician Consult EDMS 11/06 08:36 Order name: Cardiac monitoring; Complete Time: 08:46 ms3 11/06 08:36 Order name: EKG - Nurse/Tech; Complete Time: 08:46 ms3 11/06 08:36 Order name: IV Saline Lock; Complete Time: 09:19 ms3 11/06 08:36 Order name: Labs collected and sent; Complete Time: 09:19 ms3 11/06 08:36 Order name: O2 Per Protocol; Complete Time: 08:46 ms3 09 08:36 Order name: O2 Sat Monitoring; Complete Time: 08:46 ms3 EC:27 Rate is 79 beats/min. Rhythm is regular. QRS [place] is Normal. UT interval is normal. QRS ms3 interval is normal. Clinical impression: Normal ECG. Interpreted by me. Reviewed by me. Administered Medications: 09:30 Drug: Boostrix Tdap IM 0.5 ml IM once; as a single dose Route: IM; Site: right deltoid; ld1 09:47 Follow up: Response: No adverse reaction ld1 09:30 Drug: Lidocaine Infiltration (1 %) 10 ml 20 ml Infiltration once; to bedside {Note: ld1 Administered by Dr. Ro.} Volume: 20 ml; Route: Infiltration; :44 Follow up: Response: No adverse reaction ld1 09:30 Drug: Lidocaine-Epinephrine Infiltration -1%: (1:100,000) 20 ml 20 ml Infiltration ld1 once; to bedside Volume: 20 ml; Route: Infiltration; :44 Follow up: Response: No adverse reaction ld1 Disposition Summary: 11/07/23 10:25 Hospitalization Ordered Notes: Hospitalization Status: Observation ms3 Provider: Dilan Martino ms3 Location: Telemetry/MedSurg (observation) ms3 Condition: Stable ms3 Problem: new ms3 Symptoms: are unchanged ms3 Bed/Room Type: Standard ms3 Room Assignment: 213(11/07/23 11:53) em1 Diagnosis - Syncope Near ms3 - Essential (primary) hypertension ms3 - Laceration without foreign body of unspecified part of head ms3 - Laceration without foreign body, right foot ms3 - Unspecified injury of head, initial encounter ms3 - Dizziness and giddiness ms3 Forms: - Medication Reconciliation Form ms3 - SBAR form ms3 - Leadership Thank You Letter ms3 Signatures: Dispatcher [employer] Jasvir Beauchamp em1 Bertrand Ro DO DO ms3 Alia Ro RN RN ld1 Corrections: (The following items were deleted from the chart) 11:53 10:25 ms3 em1
[2023-11-07] MEDS ORDERED: ONDANSETRON 4 MG/2 ML VIAL IV PRN ×2 (12:18→13:14)
--- NOTE | 2023-11-07 12:31 | P.HP ---
Certification for Inpatient Patient admitted to: Observation With expected LOS: <2 Midnights Practitioner: I am a practitioner with admitting privileges, knowledge of patient current condition, hospital course, and medical plan of care. Services: Services provided to patient in accordance with Admission requirements found in Title 42 Section 412.3 of the Code of Federal Regulations Patient History Date of Service: 11/07/23 Primary Care Provider: Gunner Reason for admission: near syncope, acute renal failure History of Present Illness: Patient is an office patient of [employer] with a history of cad s/p cabg, dm2. He was feeling dizziness this morning. He fell and hit his head and cut his foot. States he has been having the dizzy spells for a while. Though he has not reported this to me. He has been seeing Dr. Stockton. The patient came to the ER. Had a normal EKG and troponin. Elevation of his creatine to 1.45. Baseline is 1.05 He keeps asking for a stress test. The patient can be a bit anxious at times. This has been my experience with him Allergies No Known Allergies Allergy (Verified 01/01/23 20:51) Home Medications: Aspirin Chewable [Aspirin Chewable*] 81 mg PO DAILY 01/02/23 Atorvastatin Calcium [Lipitor] 80 mg PO DAILY 01/02/23 Bupropion *Xl* [Wellbutrin XL*] 150 mg PO DAILY 01/02/23 Fenofibrate [Tricor*] 160 mg PO DAILY 01/02/23 Gabapentin 300 mg PO DAILY 01/02/23 Levothyroxine Sodium 150 mcg PO DAILY 01/02/23 Lisinopril [Zestril] 20 mg PO DAILY 01/02/23 Meclizine HCl 25 mg PO TID 01/02/23 Metformin HCl 500 mg PO BID 01/02/23 Metoprolol Tartrate [Lopressor*] 25 mg PO BID 01/02/23 Multivitamin 1 tab PO DAILY 01/02/23 Niacin 500 mg PO DAILY 01/02/23 Pantoprazole [Protonix Tab*] 40 mg PO DAILY 01/02/23 Prazosin HCl [Minipress*] 1 mg PO DAILY 01/02/23 Semaglutide [Ozempic] 1 04/09/23 Sertraline HCl [Zoloft] 100 04/09/23 Ciprofloxacin HCl [Cipro 500 MG Tablet] 500 mg PO BID 5 Days #10 tab 04/11/23 Lisinopril [Zestril] 40 mg PO DAILY 90 Days #90 tab 04/11/23 - Past Medical/Surgical History Diabetic: Yes -: hyperlipidemia -: hypertension -: cad -: insomnia -: thyroid -: niddm -: neuropathy -: vertigo -: cabg x 2 -: back surgeries -: left knee sx - Family History Mother -: Diabetes Father -: Heart disease - Social History Alcohol use: No CD- Drugs: No Caffeine use: Yes Review of Systems 10-point ROS is otherwise unremarkable Cardiovascular: Light Headedness Neurological: Other (near syncope) Physical Examination - Physical Exam General: Alert, In no apparent distress HEENT: Atraumatic, PERRLA, Mucous membr. moist/pink, EOMI, Sclerae nonicteric Neck: Supple, 2+ carotid pulse no bruit, No LAD, Without JVD or thyroid abnormality Respiratory: Clear to auscultation bilaterally, Normal air movement Cardiovascular: Regular rate/rhythm, Normal S1 S2 Gastrointestinal: Normal bowel sounds, No tenderness Musculoskeletal: No tenderness Integumentary: No rashes Neurological: Normal gait, Normal speech, Normal strength at 5/5 x4 extr, Normal tone, Normal affect Lymphatics: No axilla or inguinal lymphadenopathy - Studies Laboratory Data (last 24 hrs) 11/07/23 11/07/23 09:16 09:16 WBC 7.20 Hgb 14.2 Hct 42.3 Plt Count 214 Sodium 140 Potassium 4.0 BUN 27 H Creatinine 1.45 H Glucose 183 H Assessment and Plan - Problems (Diagnosis) (1) Syncope Current Visit: No Status: Acute Plan: will keep him on telemetry. check neurochecks and troponins. will have him seen by Dr. Stockton. He wants a stress test. This could be due to the renal failure. Or possible arrhythmia. Will keep him in observation Qualifiers: Encounter type: initial encounter (2) Acute renal failure Current Visit: Yes Status: Acute Plan: will start the patient on normal saline. Monitor creatine, magnesium and potassium. This may have been the cause of his electrolyte imbalance Qualifiers: Acute renal failure type: unspecified Qualified Code(s): N17.9 - Acute kidney failure, unspecified (3) DM2 (diabetes mellitus, type 2) Current Visit: No Status: Chronic Plan: hold metformin due to the renal function. keep him on carb controlled diet and ISS. Qualifiers: Diabetes mellitus prison insulin use: without termite control service representative use Diabetes mellitus complication status: without complication Qualified Code(s): E11.9 - Type 2 diabetes mellitus without complications (4) HTN (hypertension) Current Visit: No Status: Chronic Plan: restart home lisinopril Qualifiers: Hypertension type: primary hypertension Qualified Code(s): I10 - Essential (primary) hypertension Discharge Plan: Home Plan to discharge in: 24 Hours - Advance Directives Does patient have a Living Will: Yes Does patient have a Durable POA for Healthcare: Yes - Code Status/Comfort Care Code Status Assessed: No Physician Review: Patient Assessed, Agree with Above Assessment and Plan Critical Care: No Time Spent Managing Pts Care (In Minutes): 45
[2023-11-07] MEDS: NA CHLORIDE 0.9% 1,000 ML IV SCH (13:00)
[2023-11-07] MEDS ORDERED: ACETAMINOPHEN 500 MG TAB PO PRN (13:14)
[2023-11-07 13:26] VITALS: O2SAT 98
[2023-11-07] MEDS ORDERED: INSULIN REGULAR (HUMAN) 100 UNIT/ML SQ SCH (16:30)
[2023-11-07] MEDS ORDERED: ENOXAPARIN 40 MG/0.4 ML SQ SCH (17:00)
--- NOTE | 2023-11-07 18:08 | CON ---
Date of Consultation: 11/07/2023 Reason For Consultation: Near syncope and dizziness. History Of Present Illness: This is a 68-year-old male with history of coronary artery disease, stat us post CABG, has diabetes, hypertension, on medications for both. He woke up early in the morning t o use the restroom and felt very dizzy and he describes it with objects moving around him and he trie d to keep his balance and then he could not, so he fell. He did not lose his consciousness as per hi s report, but his symptoms have improved by the time he arrived to the hospital. Denies having any c hest pain. No shortness of breath. No other symptoms. Past Medical History: As outlined above in the HPI. Coronary artery disease, hypertension, dyslipid emia. Past Surgical History: CABG. Medications: Refer to reconciliation sheet for detailed list. Allergies: NO KNOWN DRUG ALLERGIES. Family History: No premature coronary artery disease or cancer. Social History: Does not smoke or drink. Does not use any drugs. Review of Systems: All systems reviewed and they were negative except as mentioned in the HPI. Physical Examination: Vital Signs: Reviewed. Head and Neck: Pupils are equal, reactive to light. Intact eye movements. No JVD. No cervical lym phadenopathy. Neck is supple. Thyroid is not enlarged. Lungs: Clear to auscultation bilaterally. No rhonchi, wheezing, or crackles. No accessory muscle u se. Heart: Regular rate and rhythm. No extra sounds. Abdomen: Soft, nontender. Bowel sounds positive. No organomegaly. No masses or hernia. No rigidi ty or rebound. Extremities: No edema, clubbing, or cyanosis. Intact pulses. Skin: No rash. No nodule. Neurologic: Alert, awake, oriented x3. No acute focal deficits appreciated. Investigations: BUN 27, creatinine 1.45, which was normal a few days ago and troponins x2 are negati ve and hemoglobin is 14.2. Assessment And Recommendations: 1.Dizziness. There was no syncope or loss of consciousness. The patient sustained a ground-level f all due to severe vertigo and I believe his symptoms are related to either the ears or the brain. I recommend ENT evaluation and also possible neurology evaluation for this vertigo that caused the fall . It does not seem to me that is cardiovascular issue, however, monitor him on telemetry and obtain an echocardiogram tomorrow morning. 2.Hypertension. Blood pressure is controlled. 3.Acute renal failure. Gentle hydration is recommended. Recommend a normal saline at 50 cc/hour ov ernight and evaluate labs in the morning. 4.Dyslipidemia. Continue statin. Thank you for the consult. /KATHY Voice ID: [id number] Report ID: [id number]
[2023-11-07] MEDS: MORPHINE 2 MG/ML SYR IV PRN (18:37)
[2023-11-07] MEDS: ATORVASTATIN 80 MG TAB PO SCH (20:31)
[2023-11-07] MEDS: METOPROLOL TAR 25 MG TAB PO SCH (20:31)
[2023-11-08] MEDS: LEVOTHYROXINE SOD 0.075 MG TAB PO SCH (05:32)
[2023-11-08 05:36] LABS: Absolute Basophils 0.1 K/uL (0-0.5); Absolute Eosinophils 0.2 K/uL (0-0.5); Absolute Lymphocytes (CBC) 2.2 K/uL (0.7-4.9); Absolute Monocytes 0.6 K/uL (0.1-1.3); Basophils % 0.6 % (0-1.3); Eosinophils % 2.1 % (0-4.4); Hematocrit 43.9 % (39.6-49.0); Hemoglobin 14.3 g/dL (13.6-17.9); Lymphocytes % 24.2 % (15.3-44.8); MCH 27.8 pg (27.0-35.0); MCHC 32.6 g/dL (32.0-36.0); MCV 85.4 fL (80-100); MPV 9.8 fL (7.6-11.3); Monocytes % 6.7 % (3.3-12.3); Neutrophils % 66.4 % (41.7-73.7); Platelets 200 thou/uL (152-406); RBC Red Blood Cell Count 5.15 M/uL (4.33-5.43); Red Cell Distribution Width 16.7 % (12.1-15.2)
[2023-11-08 05:41] LABS: Albumin 3.8 g/dL (3.4-5.0); Anion Gap 11.1 mEq/L (5.0-15.0); Bilirubin Total 0.6 mg/dL (0.2-1.0); Globulin 3.8 g/dL (2.3-3.5); Potassium 4.1 mEq/L (3.5-5.1); Protein, Total 7.6 g/dL (6.4-8.2); Troponin High Sensitivity 7.7 pg/mL (<58.9)
[2023-11-08] MEDS ORDERED: PANTOPRAZOLE 40MG TABLET PO SCH (06:30)
[2023-11-08] MEDS: ASPIRIN 81 MG CHEWABLE TABLET PO SCH (08:13)
[2023-11-08] MEDS: BUPROPION HCL XL 150 MG TAB PO SCH (08:14)
[2023-11-08] MEDS: lisinopriL 20 MG TAB PO SCH (08:18)
--- NOTE | 2023-11-08 08:56 | P.PN ---
Subjective Date of Service: 11/08/23 Primary Care Provider: Gunner Chief Complaint: near syncope, acute renal failure Subjective: No new changes (no dizziness.) Review of Systems 10-point ROS is otherwise unremarkable Physical Examination - Vital Signs Temperature: 98 F Blood Pressure: 151/69 Pulse: 78 Respirations: 18 Pulse Ox (%): 97 - Physical Exam General: Alert, In no apparent distress HEENT: Atraumatic, PERRLA, EOMI Neck: Supple, JVD not distended Respiratory: Clear to auscultation bilaterally, Normal air movement Cardiovascular: Regular rate/rhythm, Normal S1 S2 Gastrointestinal: Normal bowel sounds, No tenderness Musculoskeletal: No tenderness Integumentary: No rashes Neurological: Normal speech, Normal tone, Normal affect Lymphatics: No axilla or inguinal lymphadenopathy - Studies Laboratory Data (last 24 hrs) 11/07/23 11/07/23 09:16 09:16 WBC 7.20 Hgb 14.2 Hct 42.3 Plt Count 214 Sodium 140 Potassium 4.0 BUN 27 H Creatinine 1.45 H Glucose 183 H Assessment And Plan - Current Problems (Diagnosis) (1) Syncope Current Visit: No Status: Acute Plan: will keep him on telemetry. check neurochecks and troponins. will have him seen by Dr. Stockton. He wants a stress test. This could be due to the renal failure. Or possible arrhythmia. Will keep him in observation Qualifiers: Encounter type: initial encounter (2) Acute renal failure Current Visit: Yes Status: Acute Plan: will start the patient on normal saline. Monitor creatine, magnesium and potassium. This may have been the cause of his electrolyte imbalance 9.6 restart fluids. Recheck bmp at noon. will discharge if his creatine recovers Qualifiers: Acute renal failure type: unspecified Qualified Code(s): N17.9 - Acute kidney failure, unspecified (3) DM2 (diabetes mellitus, type 2) Current Visit: No Status: Chronic Plan: hold metformin due to the renal function. keep him on carb controlled diet and ISS. Qualifiers: Diabetes mellitus oil heaterman insulin use: without oil heaterman use Diabetes mellitus complication status: without complication Qualified Code(s): E11.9 - Type 2 diabetes mellitus without complications (4) HTN (hypertension) Current Visit: No Status: Chronic Plan: restart home lisinopril Qualifiers: Hypertension type: primary hypertension Qualified Code(s): I10 - Essential (primary) hypertension Discharge Plan: Home Plan to discharge in: 24 Hours - Code Status/Comfort Care Code Status Assessed: No Physician Review: Patient Assessed, Agree with Above Assessment and Plan Critical Care: No Time Spent Managing PTS Care (In Minutes): 20
[2023-11-08] MEDS ORDERED: ATORVASTATIN 80 MG TAB PO SCH (09:00)
[2023-11-08] MEDS: NA CHLORIDE 0.9% 1,000 ML IV SCH (09:33)
[2023-11-08] MEDS: NIACIN 500 MG SR TAB PO SCH (09:34)
[2023-11-08] MEDS: GABAPENTIN 300 MG CAP PO SCH (09:34)
[2023-11-08 12:19] LABS: Anion Gap 10.9 mEq/L (5.0-15.0); Potassium 3.9 mEq/L (3.5-5.1)
[2023-11-08 12:30] VITALS: BP 153/70; TEMP 98.5
--- NOTE | 2023-11-08 13:39 | P.DS ---
Admission Date: 11/07/23 Discharge Date: 11/08/23 Primary Care Provider: Gunner Disposition: ROUTINE DISCHARGE Discharge Condition: GOOD Reason for Admission: near syncope, acute renal failure - Problems (1) Syncope Current Visit: No Status: Acute Qualifiers: Encounter type: initial encounter (2) Acute renal failure Current Visit: Yes Status: Resolved Qualifiers: Acute renal failure type: unspecified Qualified Code(s): N17.9 - Acute kidney failure, unspecified (3) DM2 (diabetes mellitus, type 2) Current Visit: No Status: Chronic Qualifiers: Diabetes mellitus dedicated intermodal truck driver insulin use: without dedicated intermodal truck driver use Diabetes mellitus complication status: without complication Qualified Code(s): E11.9 - Type 2 diabetes mellitus without complications (4) HTN (hypertension) Current Visit: No Status: Chronic Qualifiers: Hypertension type: primary hypertension Qualified Code(s): I10 - Essential (primary) hypertension Brief History of Present Illness: Patient is an office patient of [employer] with a history of cad s/p cabg, dm2. He was feeling dizziness this morning. He fell and hit his head and cut his foot. States he has been having the dizzy spells for a while. Though he has not reported this to me. He has been seeing Dr. Stockton. The patient came to the ER. Had a normal EKG and troponin. Elevation of his creatine to 1.45. Baseline is 1.05 He keeps asking for a stress test. The patient can be a bit anxious at times. This has been my experience with him Vital Signs/Physical Exam: Temp Pulse Resp BP Pulse Ox 98.5 F 82 18 153/70 H 97 11/08/23 12:00 11/08/23 12:00 11/08/23 12:27 11/08/23 12:00 11/08/23 12:27 Laboratory Data at Discharge: WBC 9.00 thou/uL (4.3-10.9) 11/08/23 04:58 Hgb 14.3 g/dL (13.6-17.9) 11/08/23 04:58 Hct 43.9 % (39.6-49.0) 11/08/23 04:58 Plt Count 200 thou/uL (152-406) 11/08/23 04:58 Sodium 138 mEq/L (136-145) 11/08/23 11:58 Potassium 3.9 mEq/L (3.5-5.1) 11/08/23 11:58 BUN 23 mg/dL (7-18) H 11/08/23 11:58 Creatinine 1.23 mg/dL (0.70-1.30) 11/08/23 11:58 Glucose 145 mg/dL (74-106) H 11/08/23 11:58 Total Bilirubin 0.6 mg/dL (0.2-1.0) 11/08/23 05:01 AST 18 U/L (15-37) 11/08/23 05:01 ALT 34 U/L (16-61) 11/08/23 05:01 Alkaline Phosphatase 60 U/L (45-117) 11/08/23 05:01 Home Medications: Aspirin Chewable [Aspirin Chewable*] 81 mg PO DAILY 01/02/23 Atorvastatin Calcium [Lipitor] 80 mg PO DAILY 01/02/23 Bupropion *Xl* [Wellbutrin XL*] 150 mg PO DAILY 01/02/23 Fenofibrate [Tricor*] 160 mg PO DAILY 01/02/23 Gabapentin 300 mg PO DAILY 01/02/23 Levothyroxine Sodium 150 mcg PO DAILY 01/02/23 Lisinopril [Zestril] 40 mg PO DAILY 01/02/23 Meclizine HCl 25 mg PO TID 01/02/23 Metformin HCl 500 mg PO BID 01/02/23 Metoprolol Tartrate [Lopressor*] 25 mg PO BID 01/02/23 Multivitamin 1 tab PO DAILY 01/02/23 Niacin 500 mg PO DAILY 01/02/23 Pantoprazole [Protonix Tab*] 40 mg PO DAILY 01/02/23 Prazosin HCl [Minipress*] 1 mg PO DAILY 01/02/23 Semaglutide [Ozempic] 1 04/09/23 Sertraline HCl [Zoloft] 100 mg PO DAILY 04/09/23 Ciprofloxacin HCl [Cipro 500 MG Tablet] 500 mg PO BID 5 Days #10 tab 04/11/23 Lisinopril [Zestril] 40 mg PO DAILY 90 Days #90 tab 04/11/23 Empagliflozin [Jardiance] 25 mg PO DAILY 11/07/23 clonazePAM [Clonazepam] 2 mg PO DAILY 09/05/24 Followup: Dilan Martino MD [ACTIVE - CAN ADMIT] -
--- NOTE | 2023-11-08 14:09 | EKG ---
Test Date: 2023-11-07 Test Time: 08:44:20 Set Up Inspector: JOHN MEASUREMENT RESULTS: Intervals: Rate: 79 TN: 164 QRSD: 96 QT: 384 QTc: 440 [place]: P: 35 TN: 164 QRS: 71 T: 42 INTERPRETIVE STATEMENTS: Normal sinus rhythm Low voltage QRS Borderline ECG Compared to ECG 04/08/2023 18:24:28 Low QRS voltage now present Sinus tachycardia no longer present Electronically Signed On 11-08-23 14:06:52 CDT by Inocencio Stockton
[2023-11-08 15:19] VITALS: BMI 35.5
--- NOTE | 2023-11-08 19:47 | PN ---
Date of Progress Note: 11/08/2023 Subjective: Seen by bedside. Doing clinically well. He does not have any chest pain, shortness of breath, orthopnea, or cough. No nausea, vomiting, or vomiting. All other systems were reviewed, the y were negative. Objective: Vital Signs: Reviewed. Head and Neck: Pupils are equal, reactive to light. Intact eye movements. No JVD. No cervical lym phadenopathy. Neck is supple. Thyroid is not enlarged. Lungs: Clear to auscultation bilaterally. No rhonchi, wheezing, or crackles. No accessory muscle u se. Heart: Regular rate and rhythm. No extra sounds. Abdomen: Soft, nontender. Bowel sounds positive. No organomegaly. No mass or hernia. No rigidity or rebound. Extremities: No edema, clubbing, or cyanosis. Intact pulses. Skin: No rash. No nodule. Neuro: Alert, awake, oriented x3. No acute focal deficits appreciated. Investigations: Creatinine normalized at 1.23, BUN is 23. Troponins are negative and hemoglobin is 14.3. Assessment And Recommendations: 1.Vertigo. His dizziness is old vertigo when he had a fall, but no loss of consciousness. Recommen d ENT/Neurology evaluation. Discussed the case with Dr. Martino. 2.Hypertension. Blood pressure is controlled. 3.Acute renal failure, probably dehydration. This is resolved with gentle hydration. Creatinine is back to normal level. 4.Dyslipidemia. Continue statin. Discussed the case with the staff and Dr. Martino. From a cardiology standpoint, patient can be releas ed to follow up with me in the office in 2 weeks. SR/ADISL Voice ID: [id number] Report ID: [id number]
== END 2023-11-08 15:00 | disposition home health service (06) ==
LOC: ER 07:58 → 2ND 12:25
PROVIDERS: ADMIT Internal Medicine; ATTEND Internal Medicine
PROC: 0JQ13ZZ Repair Face Subcutaneous Tissue and Fascia, Percutaneous Approach (ICD-10-PCS; principal; 2023-11-07)
PROC: 0JQQ3ZZ Repair Right Foot Subcutaneous Tissue and Fascia, Percutaneous Approach (ICD-10-PCS; 2023-11-07)
DX: R55 Syncope and collapse (principal); N17.9 Acute kidney failure, unspecified; I25.10 Atherosclerotic heart disease of native coronary artery without angina pectoris; E11.9 Type 2 diabetes mellitus without complications; I10 Essential (primary) hypertension; E78.5 Hyperlipidemia, unspecified; S01.91XA Laceration without foreign body of unspecified part of head, initial encounter; S91.114A Laceration without foreign body of right lesser toe(s) without damage to nail, initial encounter; W18.39XA Other fall on same level, initial encounter; Y93.89 Activity, other specified; Y92.012 Bathroom of single-family (private) house as the place of occurrence of the external cause; Z23 Encounter for immunization; Z95.1 Presence of aortocoronary bypass graft; Z79.82 Long term (current) use of aspirin
CPT/HCPCS: 93005; 85025 ×2; 80048 ×2; 36415; 82947 ×5; 84484 ×4; 80053; 70450; 72125; 71045; 96372; 99285; 12002; 12011; 12001; J2001; J2270 ×5; J7030 ×2; G0378